=== PATIENT | female | born 1960 | race Caucasian/White ===

== ENCOUNTER 2017-12-29 11:00 | Outpatient (RCR) | payer MEDICAID, SELFPAY ==
[2017-12-13 10:40] VITALS: BP 135/50; PULSE 65; RESP 18; TEMP 35.7; BMI 55.2
--- NOTE | 2017-12-13 11:17 | PCM.WC.HP ---
(1) Ulcer of right lower extremity with fat layer exposed Status: Chronic Current Visit: Yes Code(s): L97.912 - Non-pressure chronic ulcer of unspecified part of right lower leg with fat layer exposed (2) Chronic ulcer of right thigh with fat layer exposed Status: Chronic Current Visit: Yes Code(s): L97.112 - Non-pressure chronic ulcer of right thigh with fat layer exposed (3) Morbid obesity Status: Chronic Current Visit: No Code(s): E66.01 - Morbid (severe) obesity due to excess calories (4) Venous insufficiency Status: Chronic Current Visit: Yes History of Present Illness Date of Service: 12/13/17 Chief Complaint: Right ervin and thigh ulcers History of Wound: Ms. Seth is 57 yo known to the wound center with PMH amongst other of chronic lymphedema / venous insufficiency who presents to the wound center with new right lower extremity wounds. Initial episode was about 6 weeks ago where she was managed at [facility] for left lower extremity celulitis. She was subsequently seen 3 weeks after for her right thigh ulcer and investigations done per patient were without any significant abnormality. She has just completed a 10 day course of antibiotics. She feels well otherwise and denies chill, fever, nausea, vomitting or any change in bowel habit. Past Medical History Past Medical History: Chronic Problems Chronic ulcer of right thigh with fat layer exposed (Chronic) Tinea unguium (Chronic) Venous insufficiency (Chronic) Morbid obesity (Chronic) Venous ulcer of leg (Chronic) right leg Ulcer of right lower extremity with fat layer exposed (Chronic) Lymphedema (Chronic) Right leg pain (Chronic) Malnutrition (Chronic) Surgical History: noncontributory, hysterectomy, - - D & C Allergies/Adverse Reactions: Allergies No Known Allergies Allergy (Verified 10/15/14 14:27) Home Medications: Ambulatory Orders Medication Instructions Recorded Carvedilol [Coreg] 25 mg PO BID 10/15/14 Levothyroxine [Synthroid] 350 mcg PO QODAY 10/15/14 Losartan Potassium [Cozaar] 50 mg PO DAILY 10/15/14 B Complex with Vitamin C 1 each PO DAILY 05/11/16 [B-Complex Plus Vitamin C] Desvenlafaxine Succinate [Pristiq] 200 mg PO DAILY 05/11/16 Levothyroxine [Synthroid] 175 mcg PO QODAY 05/11/16 Multivit-Min/Iron/Folic/Lutein 1 each PO DAILY 05/11/16 [Centrum Silver Women Tablet] Vit A Palm,D3 in Cod Liver Oil [Sv 1 each PO DAILY 05/11/16 Cod Liver Oil Softgel] - Family History Maternal - - family history includes cancer, hyperlipidemia, hypertension, polio Smoking Status: Never smoker Review of Systems Constitutional: Denies: Anorexia, Chills, Fever Eyes: Denies: Blurred vision, Redness HEENT: Denies: Difficulty Swallowing Cardiovascular: Denies: Chest Pain, Chest Tightness Respiratory: Denies: Cough, Shortness of Breath Gastrointestinal: Denies: Hematemesis, Vomiting Skin: Denies: Jaundice - Physical Exam Vital Signs Temp Pulse Resp BP 96.2 F L 65 18 135/50 H 12/13/17 10:40 12/13/17 10:40 12/13/17 10:40 12/13/17 10:40 General: Alert, Oriented x3, Cooperative, No apparent distress HEENT: Atraumatic, Normocephalic Oral: Moist Mucosa Neck: Supple Lungs: Normal air movement Cardiovascular: Regular rate, Regular Rhythm Abdomen: Soft, Obese Extremities: No cyanosis, Edema Skin: Ulcer/ Wound Wound Measurements and Assessment WC - Nurse 1 - General Ulcer Measurement Start: 12/13/17 10:40 Freq: Status: Active Protocol: Activity Type Activity Date Activity User E-Sign Co-Sign Detail Recorded Client Recorded Date Recorded By Document 12/13/17 10:40 [id number] 12/13/17 10:57 12/13/17 10:40 Wound Center Nurse 1 [Ulcer Assessment] #4 RIGHT MEDIAL UPPER THIGH -Combined with other wound No -Current Size (cm) - Length 2.2 -Current Size (cm) - Width 4.1 -Current Size (cm) - Depth 0.1 -Total Square Cm 9.02 -Date of Last Picture (Recall this 12/13/17 field) -Photo Taken Yes -Epithelialization None Present -Tunneling No -Undermining/Tunneling No -Circular Undermining No -Slough/Fibrin Yes -Necrosis Amt None Present (0 %) -Necrotic Tissue Type Eschar -Temperature (Irene-wound Skin No Abnormality Appearance) (Pt Warm) -Tenderness on Palpation (Irene-wound No Skin Appearance) -Ulcer Cleansing Wound Cleanser -Foul Odor after Cleansing No -Anesthetic Used 4% Lidocaine Solution #3 RIGHT LOWER ERVIN -Combined with other wound No -Current Size (cm) - Length 1.3 -Current Size (cm) - Width 1.3 -Current Size (cm) - Depth 0.1 -Total Square Cm 1.69 -Date of Last Picture (Recall this 12/13/17 field) -Photo Taken Yes -Epithelialization None Present -Tunneling No -Undermining/Tunneling No -Circular Undermining No -Slough/Fibrin Yes -Necrosis Amt None Present (0 %) -Necrotic Tissue Type Eschar -Temperature (Irene-wound Skin No Abnormality Appearance) (Pt Warm) -Tenderness on Palpation (Irene-wound No Skin Appearance) -Ulcer Cleansing Wound Cleanser -Foul Odor after Cleansing No -Anesthetic Used 4% Lidocaine Solution [Edema Assessment] -Lower Limb Edema Present Yes -Right Calf (cm) 81 -Right Ankle (cm) 33.5 -Left Calf (cm) 68 -Left Ankle (cm) 33 WC - Nurse 2 - General Ulcer CM Notes Start: 12/13/17 10:40 Freq: Status: Active Protocol: Activity Type Activity Date Activity User E-Sign Co-Sign Detail Recorded Client Recorded Date Recorded By Document 12/13/17 11:03 MW [id number] 12/13/17 11:14 MW 12/13/17 11:03 Wound Center Nurse 2 [Procedure/Treatment] #4 RIGHT MEDIAL UPPER THIGH -Time 11:05 -Correct Patient Yes -Correct Side, Site, Position Yes -Correct Procedure Yes -Procedure Performed Yes -Type of Procedure Debridement -Clinical Debridement Subcutaneous -Post Debridement Size (cm) - Length 4.6 -Post Debridement Size (cm) - Width 4.0 -Post Debridement Size (cm) - Depth 0.1 -Total Square Cm 18.40 -Wound/Ulcer Outcome Not Healed -Ulcer Cleansing Rinsed/ Irrigated with Saline -Foul Odor after Cleansing No -Bioengineered Tissue No -Bleeding Controlled with Pressure -Treatment Response Procedure Tolerated Well #3 RIGHT LOWER ERVIN -Time 11:04 -Correct Patient Yes -Correct Side, Site, Position Yes -Correct Procedure Yes -Procedure Performed Yes -Type of Procedure Debridement -Clinical Debridement Subcutaneous -Post Debridement Size (cm) - Length 1.6 -Post Debridement Size (cm) - Width 1.1 -Post Debridement Size (cm) - Depth 0.1 -Total Square Cm 1.76 -Wound/Ulcer Outcome Not Healed -Ulcer Cleansing Rinsed/ Irrigated with Saline -Foul Odor after Cleansing No -Bioengineered Tissue No -Bleeding Controlled with Pressure -Treatment Response Procedure Tolerated Well [See Physician Procedure note for Specifics] Pain Scale: 0-10 Numeric [Pain] -Is Patient Pain Free? Yes Musculoskeletal: No Muscle Wasting Neurological: Cranial nerves II-XII grossly intact Psych/Mental Status: Normal Affect Debridement Note Post-Debridement Measurements/Treatment WC - Nurse 2 - General Ulcer CM Notes Start: 12/13/17 10:40 Freq: Status: Active Protocol: Activity Type Activity Date Activity User E-Sign Co-Sign Detail Recorded Client Recorded Date Recorded By Document 12/13/17 11:03 MW [id number] 12/13/17 11:14 MW 12/13/17 11:03 Wound Center Nurse 2 #4 RIGHT MEDIAL UPPER THIGH -Time 11:05 -Correct Patient Yes -Correct Side, Site, Position Yes -Correct Procedure Yes -Procedure Performed Yes -Type of Procedure Debridement -Clinical Debridement Subcutaneous -Post Debridement Size (cm) - Length 4.6 -Post Debridement Size (cm) - Width 4.0 -Post Debridement Size (cm) - Depth 0.1 -Total Square Cm 18.40 -Wound/Ulcer Outcome Not Healed -Ulcer Cleansing Rinsed/ Irrigated with Saline -Foul Odor after Cleansing No -Bioengineered Tissue No -Bleeding Controlled with Pressure -Treatment Response Procedure Tolerated Well #3 RIGHT LOWER ERVIN -Time 11:04 -Correct Patient Yes -Correct Side, Site, Position Yes -Correct Procedure Yes -Procedure Performed Yes -Type of Procedure Debridement -Clinical Debridement Subcutaneous -Post Debridement Size (cm) - Length 1.6 -Post Debridement Size (cm) - Width 1.1 -Post Debridement Size (cm) - Depth 0.1 -Total Square Cm 1.76 -Wound/Ulcer Outcome Not Healed -Ulcer Cleansing Rinsed/ Irrigated with Saline -Foul Odor after Cleansing No -Bioengineered Tissue No -Bleeding Controlled with Pressure -Treatment Response Procedure Tolerated Well Pain Scale: 0-10 Numeric Is Patient Pain Free? Yes Wound debrided: Right Ervin Wound Grade/Stage: Stage II Type of Debridement: Excisional debridement Anesthesia Used: 4% Lidocaine Solution Depth: Down to and including healthy tissue, in the subcutaneous layer Percentage of wound debrided: 100 Instrument Used: 5mm curette Tissue Removed: Eschar, Slough and devitalized tissue Severity: Fat Layer Exposed Amount of bleeding with debridement: Mild Bleeding Controlled with: Pressure Patient tolerated procedure well - Additional Wound Wound debrided: Right Medial Thigh Wound Grade/Stage: Stage II Type of Debridement: Excisional debridement Anesthesia Used: 4% Lidocaine Solution Depth: Down to and including healthy tissue, in the subcutaneous layer Percentage of wound debrided: 100 Instrument Used: 5mm curette Tissue Removed: Eschar, slough and devitalized tissue Severity: Fat Layer Exposed Amount of bleeding with debridement: Mild Bleeding Controlled with: Pressure Patient tolerated procedure: Patient tolerated procedure well Assessment/Plan Active Problems Chronic ulcer of right thigh with fat layer exposed (Chronic) Venous insufficiency (Chronic) Ulcer of right lower extremity with fat layer exposed (Chronic) Assessment: Right Medial Thigh ulcer with fat layer exposed. Right ervin ulcer with fat layer exposed. Chronic lymphedema. Resolving Cellulitis. Plan: Lower extremity ulcers with significant eschar which were debrided today. No significant discharge on debriding. Debridement was well tolerated. She appears to have had significant work up at [facility], will request records. Apply Fibrochol with adpatic overtop. Change daily. Increased protein intake recommended. Surepress for edema management. Continue use of lymphedema pumps. Elevate lower extremity when sitted and in bed. Follow up in 1 week. She was advised to call with any question or concerns.
[2017-12-20 10:43] VITALS: BP 152/77; PULSE 73; RESP 18; TEMP 36.3; BMI 55.2
--- NOTE | 2017-12-20 12:14 | PCM.WC.PN ---
(1) Ulcer of right lower extremity with fat layer exposed Status: Chronic Current Visit: Yes Code(s): L97.912 - Non-pressure chronic ulcer of unspecified part of right lower leg with fat layer exposed (2) Chronic ulcer of right thigh with fat layer exposed Status: Chronic Current Visit: Yes Code(s): L97.112 - Non-pressure chronic ulcer of right thigh with fat layer exposed (3) Morbid obesity Status: Chronic Current Visit: No Code(s): E66.01 - Morbid (severe) obesity due to excess calories (4) Venous insufficiency Status: Chronic Current Visit: Yes Type of Wound Date of Service: 12/20/17 Chief Complaint: Right ervin and thigh ulcers History of Wound: Ms. Seth is 57 yo known to the wound center with PMH amongst other of chronic lymphedema / venous insufficiency who presents to the wound center with new right lower extremity wounds. Initial episode was about 6 weeks ago where she was managed at [facility] for left lower extremity celulitis. She was subsequently seen 3 weeks after for her right thigh ulcer and investigations done per patient were without any significant abnormality. She has just completed a 10 day course of antibiotics. She feels well otherwise and denies chill, fever, nausea, vomitting or any change in bowel habit. Progress of Wound: Right thigh is healed. Right lower extremity (leg) has significantly improved. No new complaints at this time. - Physical Exam Vital Signs Temp Pulse Resp BP 97.3 F L 73 18 152/77 H 12/20/17 10:43 12/20/17 10:43 12/20/17 10:43 12/20/17 10:43 General: Alert, Oriented x3, Cooperative, No apparent distress HEENT: Atraumatic Oral: Moist Mucosa Neck: Supple Lungs: Normal air movement Cardiovascular: Regular rate Abdomen: Non Tender, Obese Extremities: No cyanosis, Edema Skin: Ulcer/ Wound Wound Measurements and Assessment WC - Nurse 1 - General Ulcer Measurement Start: 12/13/17 10:40 Freq: Status: Active Protocol: Activity Type Activity Date Activity User E-Sign Co-Sign Detail Recorded Client Recorded Date Recorded By Document 12/20/17 10:43 [id number] 12/20/17 10:47 12/20/17 10:43 Wound Center Nurse 1 [Ulcer Assessment] #4 RIGHT MEDIAL UPPER THIGH -Combined with other wound No -Current Size (cm) - Length 0.1 -Current Size (cm) - Width 0.1 -Current Size (cm) - Depth 0.1 -Total Square Cm 0.01 -Date of Last Picture (Recall this 12/20/17 field) -Photo Taken Yes -Epithelialization Large 67-100% #3 RIGHT LOWER ERVIN -Combined with other wound No -Current Size (cm) - Length 0.3 -Current Size (cm) - Width 0.3 -Current Size (cm) - Depth 0.1 -Total Square Cm 0.09 -Photo Taken No -Epithelialization Small 1-33% -Tunneling No -Undermining/Tunneling No -Circular Undermining No -Exudate Amt Small (1-33%) -Exudate Type Serosanguineous -Wound Margin Distinct, Outline Attached -Granulation Amt Small (1-33%) -Granulation Quality [place] Red -Slough/Fibrin Yes -Necrosis Amt None Present (0 %) -Necrotic Tissue Type Adherent Slough -Structure Exposed None/Limited to Skin Breakdown -Texture (Irene-wound Skin Appearance) No Abnormality Assessed -Moisture (Irene-wound Skin Appearance Assessed ) Dry/Scaly -Color (Irene-wound Skin Appearance) No Abnormality Assessed -Temperature (Irene-wound Skin No Abnormality Appearance) (Pt Warm) -Tenderness on Palpation (Irene-wound No Skin Appearance) -Ulcer Cleansing Rinsed/ Irrigated with Saline -Foul Odor after Cleansing No -Anesthetic Used 4% Lidocaine Solution [Edema Assessment] -Lower Limb Edema Present NA WC - Nurse 2 - General Ulcer CM Notes Start: 12/13/17 10:40 Freq: Status: Active Protocol: Activity Type Activity Date Activity User E-Sign Co-Sign Detail Recorded Client Recorded Date Recorded By Document 12/20/17 11:42 MW [id number] 12/20/17 11:45 MW 12/20/17 11:42 Wound Center Nurse 2 [Procedure/Treatment] #4 RIGHT MEDIAL UPPER THIGH -Time 11:42 -Correct Patient Yes -Correct Side, Site, Position Yes -Correct Procedure No -Procedure Performed No -Post Debridement Size (cm) - Length 0 -Post Debridement Size (cm) - Width 0 -Post Debridement Size (cm) - Depth 0 -Total Square Cm 0 -Wound/Ulcer Outcome Healed- Epithelialized -Ulcer Cleansing Not Cleansed -Foul Odor after Cleansing No -Bioengineered Tissue No -Bleeding Controlled with NA -Treatment Response Procedure Tolerated Well #3 RIGHT LOWER ERVIN -Time 11:43 -Correct Patient Yes -Correct Side, Site, Position Yes -Correct Procedure Yes -Procedure Performed Yes -Type of Procedure Debridement -Clinical Debridement Subcutaneous -Post Debridement Size (cm) - Length 0.9 -Post Debridement Size (cm) - Width 0.5 -Post Debridement Size (cm) - Depth 0.1 -Total Square Cm 0.45 -Wound/Ulcer Outcome Not Healed -Ulcer Cleansing Rinsed/ Irrigated with Saline -Foul Odor after Cleansing No -Bioengineered Tissue No -Bleeding Controlled with Pressure -Treatment Response Procedure Tolerated Well [See Physician Procedure note for Specifics] Pain Scale: 0-10 Numeric [Pain] -Is Patient Pain Free? Yes Musculoskeletal: No Muscle Wasting Neurological: Cranial nerves II-XII grossly intact Psych/Mental Status: Normal Affect Debridement Note Post-Debridement Measurements/Treatment WC - Nurse 2 - General Ulcer CM Notes Start: 12/13/17 10:40 Freq: Status: Active Protocol: Activity Type Activity Date Activity User E-Sign Co-Sign Detail Recorded Client Recorded Date Recorded By Document 12/13/17 11:03 MW [id number] 12/13/17 11:14 MW Document 12/20/17 11:42 MW [id number] 12/20/17 11:45 MW 12/13/17 12/20/17 11:03 11:42 Wound Center Nurse 2 #4 RIGHT MEDIAL UPPER THIGH -Time 11:05 11:42 -Correct Patient Yes Yes -Correct Side, Site, Position Yes Yes -Correct Procedure Yes No -Procedure Performed Yes No -Type of Procedure Debridement -Clinical Debridement Subcutaneous -Post Debridement Size (cm) - Length 4.6 0 -Post Debridement Size (cm) - Width 4.0 0 -Post Debridement Size (cm) - Depth 0.1 0 -Total Square Cm 18.40 0 -Wound/Ulcer Outcome Not Healed Healed- Epithelialized -Ulcer Cleansing Rinsed/ Not Cleansed Irrigated with Saline -Foul Odor after Cleansing No No -Bioengineered Tissue No No -Bleeding Controlled with Pressure NA -Treatment Response Procedure Procedure Tolerated Well Tolerated Well #3 RIGHT LOWER ERVIN -Time 11:04 11:43 -Correct Patient Yes Yes -Correct Side, Site, Position Yes Yes -Correct Procedure Yes Yes -Procedure Performed Yes Yes -Type of Procedure Debridement Debridement -Clinical Debridement Subcutaneous Subcutaneous -Post Debridement Size (cm) - Length 1.6 0.9 -Post Debridement Size (cm) - Width 1.1 0.5 -Post Debridement Size (cm) - Depth 0.1 0.1 -Total Square Cm 1.76 0.45 -Wound/Ulcer Outcome Not Healed Not Healed -Ulcer Cleansing Rinsed/ Rinsed/ Irrigated with Irrigated with Saline Saline -Foul Odor after Cleansing No No -Bioengineered Tissue No No -Bleeding Controlled with Pressure Pressure -Treatment Response Procedure Procedure Tolerated Well Tolerated Well Pain Scale: 0-10 Numeric Is Patient Pain Free? Yes Yes Wound debrided: Right leg Wound Grade/Stage: Stage II Type of Debridement: Excisional debridement Anesthesia Used: 4% Lidocaine Solution Depth: Down to and including healthy tissue, in the subcutaneous layer Percentage of wound debrided: 100 Instrument Used: 3mm curette Tissue Removed: Slough and devitalized tissue Severity: Fat Layer Exposed Amount of bleeding with debridement: Mild Bleeding Controlled with: Pressure Patient tolerated procedure well Assessment/Plan Active Problems Chronic ulcer of right thigh with fat layer exposed (Chronic) Venous insufficiency (Chronic) Ulcer of right lower extremity with fat layer exposed (Chronic) Assessment: Right Medial Thigh ulcer with fat layer exposed. Right ervin ulcer with fat layer exposed. Chronic lymphedema. Resolving Cellulitis. Plan: Significant improvement noted today. No complaints at this time. Debridement done as documented above. Procedure was well-tolerated. Continue Fibrochol with adpatic overtop. Change daily. Increased protein intake recommend. Not very tolerant of sure press. Light 3M wraps bilaterally and continue use of lymphedema pumps. Follow-up in Monday for nurse visit. Elevate lower extremity when sitted and in bed. Follow up in 1 week. She was advised to call with any question or concerns. This note was generated with [employer] dictation software. It may contain incorrect words, spelling, and punctuation that were not noted in checking the note before signing.
--- NOTE | 2017-12-20 12:17 | PN.PCM_ITS ---
(1) Ulcer of right lower extremity with fat layer exposed Status: Chronic Current Visit: Yes Code(s): L97.912 - Non-pressure chronic ulcer of unspecified part of right lower leg with fat layer exposed (2) Chronic ulcer of right thigh with fat layer exposed Status: Chronic Current Visit: Yes Code(s): L97.112 - Non-pressure chronic ulcer of right thigh with fat layer exposed (3) Morbid obesity Status: Chronic Current Visit: No Code(s): E66.01 - Morbid (severe) obesity due to excess calories (4) Venous insufficiency Status: Chronic Current Visit: Yes Type of Wound Date of Service: 12/20/17 Chief Complaint: Right ervin and thigh ulcers History of Wound: Ms. Seth is 57 yo known to the wound center with PMH amongst other of chronic lymphedema / venous insufficiency who presents to the wound center with new right lower extremity wounds. Initial episode was about 6 weeks ago where she was managed at [facility] for left lower extremity celulitis. She was subsequently seen 3 weeks after for her right thigh ulcer and investigations done per patient were without any significant abnormality. She has just completed a 10 day course of antibiotics. She feels well otherwise and denies chill, fever, nausea, vomitting or any change in bowel habit. Progress of Wound: Right thigh is healed. Right lower extremity (leg) has significantly improved. No new complaints at this time. - Physical Exam Vital Signs Temp Pulse Resp BP 97.3 F L 73 18 152/77 H 12/20/17 10:43 12/20/17 10:43 12/20/17 10:43 12/20/17 10:43 General: Alert, Oriented x3, Cooperative, No apparent distress HEENT: Atraumatic Oral: Moist Mucosa Neck: Supple Lungs: Normal air movement Cardiovascular: Regular rate Abdomen: Non Tender, Obese Extremities: No cyanosis, Edema Skin: Ulcer/ Wound Wound Measurements and Assessment WC - Nurse 1 - General Ulcer Measurement Start: 12/13/17 10:40 Freq: Status: Active Protocol: Activity Type Activity Date Activity User E-Sign Co-Sign Detail Recorded Client Recorded Date Recorded By Document 12/20/17 10:43 [id number] 12/20/17 10:47 12/20/17 10:43 Wound Center Nurse 1 [Ulcer Assessment] #4 RIGHT MEDIAL UPPER THIGH -Combined with other wound No -Current Size (cm) - Length 0.1 -Current Size (cm) - Width 0.1 -Current Size (cm) - Depth 0.1 -Total Square Cm 0.01 -Date of Last Picture (Recall this 12/20/17 field) -Photo Taken Yes -Epithelialization Large 67-100% #3 RIGHT LOWER ERVIN -Combined with other wound No -Current Size (cm) - Length 0.3 -Current Size (cm) - Width 0.3 -Current Size (cm) - Depth 0.1 -Total Square Cm 0.09 -Photo Taken No -Epithelialization Small 1-33% -Tunneling No -Undermining/Tunneling No -Circular Undermining No -Exudate Amt Small (1-33%) -Exudate Type Serosanguineous -Wound Margin Distinct, Outline Attached -Granulation Amt Small (1-33%) -Granulation Quality [place] -Slough/Fibrin Yes -Necrosis Amt None Present (0 %) -Necrotic Tissue Type Adherent Slough -Structure Exposed None/Limited to Skin Breakdown -Texture (Irene-wound Skin Appearance) No Abnormality Assessed -Moisture (Irene-wound Skin Appearance Assessed ) Dry/Scaly -Color (Irene-wound Skin Appearance) No Abnormality Assessed -Temperature (Irene-wound Skin No Abnormality Appearance) (Pt Warm) -Tenderness on Palpation (Irene-wound No Skin Appearance) -Ulcer Cleansing Rinsed/ Irrigated with Saline -Foul Odor after Cleansing No -Anesthetic Used 4% Lidocaine Solution [Edema Assessment] -Lower Limb Edema Present NA WC - Nurse 2 - General Ulcer CM Notes Start: 12/13/17 10:40 Freq: Status: Active Protocol: Activity Type Activity Date Activity User E-Sign Co-Sign Detail Recorded Client Recorded Date Recorded By Document 12/20/17 11:42 MW [id number] 12/20/17 11:45 MW 12/20/17 11:42 Wound Center Nurse 2 [Procedure/Treatment] #4 RIGHT MEDIAL UPPER THIGH -Time 11:42 -Correct Patient Yes -Correct Side, Site, Position Yes -Correct Procedure No -Procedure Performed No -Post Debridement Size (cm) - Length 0 -Post Debridement Size (cm) - Width 0 -Post Debridement Size (cm) - Depth 0 -Total Square Cm 0 -Wound/Ulcer Outcome Healed- Epithelialized -Ulcer Cleansing Not Cleansed -Foul Odor after Cleansing No -Bioengineered Tissue No -Bleeding Controlled with NA -Treatment Response Procedure Tolerated Well #3 RIGHT LOWER ERVIN -Time 11:43 -Correct Patient Yes -Correct Side, Site, Position Yes -Correct Procedure Yes -Procedure Performed Yes -Type of Procedure Debridement -Clinical Debridement Subcutaneous -Post Debridement Size (cm) - Length 0.9 -Post Debridement Size (cm) - Width 0.5 -Post Debridement Size (cm) - Depth 0.1 -Total Square Cm 0.45 -Wound/Ulcer Outcome Not Healed -Ulcer Cleansing Rinsed/ Irrigated with Saline -Foul Odor after Cleansing No -Bioengineered Tissue No -Bleeding Controlled with Pressure -Treatment Response Procedure Tolerated Well [See Physician Procedure note for Specifics] Pain Scale: 0-10 Numeric [Pain] -Is Patient Pain Free? Yes Musculoskeletal: No Muscle Wasting Neurological: Cranial nerves II-XII grossly intact Psych/Mental Status: Normal Affect Debridement Note Post-Debridement Measurements/Treatment WC - Nurse 2 - General Ulcer CM Notes Start: 12/13/17 10:40 Freq: Status: Active Protocol: Activity Type Activity Date Activity User E-Sign Co-Sign Detail Recorded Client Recorded Date Recorded By Document 12/13/17 11:03 MW [id number] 12/13/17 11:14 MW Document 12/20/17 11:42 MW [id number] 12/20/17 11:45 MW 12/13/17 12/20/17 11:03 11:42 Wound Center Nurse 2 #4 RIGHT MEDIAL UPPER THIGH -Time 11:05 11:42 -Correct Patient Yes Yes -Correct Side, Site, Position Yes Yes -Correct Procedure Yes No -Procedure Performed Yes No -Type of Procedure Debridement -Clinical Debridement Subcutaneous -Post Debridement Size (cm) - Length 4.6 0 -Post Debridement Size (cm) - Width 4.0 0 -Post Debridement Size (cm) - Depth 0.1 0 -Total Square Cm 18.40 0 -Wound/Ulcer Outcome Not Healed Healed- Epithelialized -Ulcer Cleansing Rinsed/ Not Cleansed Irrigated with Saline -Foul Odor after Cleansing No No -Bioengineered Tissue No No -Bleeding Controlled with Pressure NA -Treatment Response Procedure Procedure Tolerated Well Tolerated Well #3 RIGHT LOWER ERVIN -Time 11:04 11:43 -Correct Patient Yes Yes -Correct Side, Site, Position Yes Yes -Correct Procedure Yes Yes -Procedure Performed Yes Yes -Type of Procedure Debridement Debridement -Clinical Debridement Subcutaneous Subcutaneous -Post Debridement Size (cm) - Length 1.6 0.9 -Post Debridement Size (cm) - Width 1.1 0.5 -Post Debridement Size (cm) - Depth 0.1 0.1 -Total Square Cm 1.76 0.45 -Wound/Ulcer Outcome Not Healed Not Healed -Ulcer Cleansing Rinsed/ Rinsed/ Irrigated with Irrigated with Saline Saline -Foul Odor after Cleansing No No -Bioengineered Tissue No No -Bleeding Controlled with Pressure Pressure -Treatment Response Procedure Procedure Tolerated Well Tolerated Well Pain Scale: 0-10 Numeric Is Patient Pain Free? Yes Yes Wound debrided: Right leg Wound Grade/Stage: Stage II Type of Debridement: Excisional debridement Anesthesia Used: 4% Lidocaine Solution Depth: Down to and including healthy tissue, in the subcutaneous layer Percentage of wound debrided: 100 Instrument Used: 3mm curette Tissue Removed: Slough and devitalized tissue Severity: Fat Layer Exposed Amount of bleeding with debridement: Mild Bleeding Controlled with: Pressure Patient tolerated procedure well Assessment/Plan Active Problems Chronic ulcer of right thigh with fat layer exposed (Chronic) Venous insufficiency (Chronic) Ulcer of right lower extremity with fat layer exposed (Chronic) Assessment: Right Medial Thigh ulcer with fat layer exposed. Right ervin ulcer with fat layer exposed. Chronic lymphedema. Resolving Cellulitis. Plan: Significant improvement noted today. No complaints at this time. Debridement done as documented above. Procedure was well-tolerated. Continue Fibrochol with adpatic overtop. Change daily. Increased protein intake recommend. Not very tolerant of sure press. Light 3M wraps bilaterally and continue use of lymphedema pumps. Follow-up in Monday for nurse visit. Elevate lower extremity when sitted and in bed. Follow up in 1 week. She was advised to call with any question or concerns. This note was generated with [employer] dictation software. It may contain incorrect words, spelling, and punctuation that were not noted in checking the note before signing.
[2017-12-22 11:17] VITALS: BP 139/79; PULSE 78; RESP 18; TEMP 36; BMI 55.2
[2017-12-27 08:11] VITALS: BP 157/71; PULSE 63; RESP 22; TEMP 35.8; BMI 55.2
--- NOTE | 2017-12-27 08:33 | PCM.WC.PN ---
(1) Ulcer of right lower extremity with fat layer exposed Status: Chronic Current Visit: Yes Code(s): L97.912 - Non-pressure chronic ulcer of unspecified part of right lower leg with fat layer exposed (2) Chronic ulcer of right thigh with fat layer exposed Status: Chronic Current Visit: Yes Code(s): L97.112 - Non-pressure chronic ulcer of right thigh with fat layer exposed (3) Morbid obesity Status: Chronic Current Visit: No Code(s): E66.01 - Morbid (severe) obesity due to excess calories (4) Venous insufficiency Status: Chronic Current Visit: Yes Type of Wound Chief Complaint: Right ervin and thigh ulcers History of Wound: Ms. Seth is 57 yo known to the wound center with PMH amongst other of chronic lymphedema / venous insufficiency who presents to the wound center with new right lower extremity wounds. Initial episode was about 6 weeks ago where she was managed at [facility] for left lower extremity celulitis. She was subsequently seen 3 weeks after for her right thigh ulcer and investigations done per patient were without any significant abnormality. She has just completed a 10 day course of antibiotics. She feels well otherwise and denies chill, fever, nausea, vomitting or any change in bowel habit. Progress of Wound: Improving. no new compliants at this time. - Physical Exam Vital Signs Temp Pulse Resp BP 96.4 F L 63 22 H 157/71 H 12/27/17 08:11 12/27/17 08:11 12/27/17 08:11 12/27/17 08:11 General: Alert, Oriented x3, Cooperative, No apparent distress HEENT: Atraumatic Oral: Moist Mucosa Neck: Supple Lungs: Normal air movement Abdomen: Non Tender, Obese Extremities: No cyanosis, Edema Skin: Ulcer/ Wound Wound Measurements and Assessment WC - Nurse 1 - General Ulcer Measurement Start: 12/13/17 10:40 Freq: Status: Active Protocol: Activity Type Activity Date Activity User E-Sign Co-Sign Detail Recorded Client Recorded Date Recorded By Document 12/27/17 08:11 JORGE [id number] 12/27/17 08:20 DL 12/27/17 08:11 Wound Center Nurse 1 [Ulcer Assessment] #3 RIGHT LOWER ERVIN -Current Size (cm) - Length 0.4 -Current Size (cm) - Width 0.2 -Current Size (cm) - Depth 0.1 -Total Square Cm 0.08 -Photo Taken No -Exudate Amt None Present (0 %) -Wound Margin Flat & Intact -Granulation Amt Large (67-100%) -Granulation Quality [place] -Necrosis Amt Small (1-33%) -Necrotic Tissue Type Adherent Slough -Structure Exposed N/A -Texture (Irene-wound Skin Appearance) Excoriation Scarring -Moisture (Irene-wound Skin Appearance Dry/Scaly ) -Color (Irene-wound Skin Appearance) Erythema Hemosiderin Staining -Temperature (Irene-wound Skin No Abnormality Appearance) (Pt Warm) -Ulcer Cleansing Wound Cleanser -Foul Odor after Cleansing No -Anesthetic Used 4% Lidocaine Solution [Edema Assessment] -Right Calf (cm) 65 -Right Ankle (cm) 30.5 WC - Nurse 2 - General Ulcer CM Notes Start: 12/13/17 10:40 Freq: Status: Active Protocol: Activity Type Activity Date Activity User E-Sign Co-Sign Detail Recorded Client Recorded Date Recorded By Document 12/27/17 08:28 MW [id number] 12/27/17 08:29 MW 12/27/17 08:28 Wound Center Nurse 2 [Procedure/Treatment] #3 RIGHT LOWER ERVIN -Time 08:28 -Correct Patient Yes -Correct Side, Site, Position Yes -Correct Procedure Yes -Procedure Performed Yes -Type of Procedure Debridement -Clinical Debridement Subcutaneous -Post Debridement Size (cm) - Length 0.5 -Post Debridement Size (cm) - Width 0.2 -Post Debridement Size (cm) - Depth 0.1 -Total Square Cm 0.10 -Wound/Ulcer Outcome Not Healed -Ulcer Cleansing Rinsed/ Irrigated with Saline -Foul Odor after Cleansing No -Bioengineered Tissue No -Bleeding Controlled with Pressure -Treatment Response Procedure Tolerated Well [See Physician Procedure note for Specifics] Pain Scale: 0-10 Numeric [Pain] -Is Patient Pain Free? Yes Musculoskeletal: No Muscle Wasting Neurological: Cranial nerves II-XII grossly intact Psych/Mental Status: Normal Affect Debridement Note Post-Debridement Measurements/Treatment WC - Nurse 2 - General Ulcer CM Notes Start: 12/13/17 10:40 Freq: Status: Active Protocol: Activity Type Activity Date Activity User E-Sign Co-Sign Detail Recorded Client Recorded Date Recorded By Document 12/13/17 11:03 MW [id number] 12/13/17 11:14 MW Document 12/20/17 11:42 MW [id number] 12/20/17 11:45 MW Document 12/27/17 08:28 MW [id number] 12/27/17 08:29 MW 12/13/17 12/20/17 12/27/17 11:03 11:42 08:28 Wound Center Nurse 2 #4 RIGHT MEDIAL UPPER THIGH -Time 11:05 11:42 -Correct Patient Yes Yes -Correct Side, Site, Position Yes Yes -Correct Procedure Yes No -Procedure Performed Yes No -Type of Procedure Debridement -Clinical Debridement Subcutaneous -Post Debridement Size (cm) - Length 4.6 0 -Post Debridement Size (cm) - Width 4.0 0 -Post Debridement Size (cm) - Depth 0.1 0 -Total Square Cm 18.40 0 -Wound/Ulcer Outcome Not Healed Healed- Epithelialized -Ulcer Cleansing Rinsed/ Not Cleansed Irrigated with Saline -Foul Odor after Cleansing No No -Bioengineered Tissue No No -Bleeding Controlled with Pressure NA -Treatment Response Procedure Procedure Tolerated Well Tolerated Well #3 RIGHT LOWER ERVIN -Time 11:04 11:43 08:28 -Correct Patient Yes Yes Yes -Correct Side, Site, Position Yes Yes Yes -Correct Procedure Yes Yes Yes -Procedure Performed Yes Yes Yes -Type of Procedure Debridement Debridement Debridement -Clinical Debridement Subcutaneous Subcutaneous Subcutaneous -Post Debridement Size (cm) - Length 1.6 0.9 0.5 -Post Debridement Size (cm) - Width 1.1 0.5 0.2 -Post Debridement Size (cm) - Depth 0.1 0.1 0.1 -Total Square Cm 1.76 0.45 0.10 -Wound/Ulcer Outcome Not Healed Not Healed Not Healed -Ulcer Cleansing Rinsed/ Rinsed/ Rinsed/ Irrigated with Irrigated with Irrigated with Saline Saline Saline -Foul Odor after Cleansing No No No -Bioengineered Tissue No No No -Bleeding Controlled with Pressure Pressure Pressure -Treatment Response Procedure Procedure Procedure Tolerated Well Tolerated Well Tolerated Well Pain Scale: 0-10 Numeric Is Patient Pain Free? Yes Yes Yes Wound debrided: Right lower extremity Wound Grade/Stage: Stage II Type of Debridement: Excisional debridement Anesthesia Used: 4% Lidocaine Solution Depth: Down to and including healthy tissue, in the subcutaneous layer Percentage of wound debrided: 100 Instrument Used: 3mm curette Tissue Removed: Slough and devitalized tissue Severity: Fat Layer Exposed Amount of bleeding with debridement: Mild Bleeding Controlled with: Pressure Patient tolerated procedure well Assessment/Plan Active Problems Chronic ulcer of right thigh with fat layer exposed (Chronic) Venous insufficiency (Chronic) Ulcer of right lower extremity with fat layer exposed (Chronic) Assessment: Right Medial Thigh ulcer with fat layer exposed. Right ervin ulcer with fat layer exposed. Chronic lymphedema. Resolving Cellulitis. Plan: Continues to show good improvement. No complaints at this time. Debridement done as documented above. Procedure was well-tolerated. Switch to promogran and leave in place for 1 week. Continue Light 3M wraps bilaterally and continue use of lymphedema pumps. Follow-up in Monday for nurse visit. Elevate lower extremity when sitted and in bed. Follow up in 1 week. She was advised to call with any question or concerns. This note was generated with [employer] dictation software. It may contain incorrect words, spelling, and punctuation that were not noted in checking the note before signing.
--- NOTE | 2017-12-27 08:37 | PN.PCM_ITS ---
(1) Ulcer of right lower extremity with fat layer exposed Status: Chronic Current Visit: Yes Code(s): L97.912 - Non-pressure chronic ulcer of unspecified part of right lower leg with fat layer exposed (2) Chronic ulcer of right thigh with fat layer exposed Status: Chronic Current Visit: Yes Code(s): L97.112 - Non-pressure chronic ulcer of right thigh with fat layer exposed (3) Morbid obesity Status: Chronic Current Visit: No Code(s): E66.01 - Morbid (severe) obesity due to excess calories (4) Venous insufficiency Status: Chronic Current Visit: Yes Type of Wound Chief Complaint: Right ervin and thigh ulcers History of Wound: Ms. Seth is 57 yo known to the wound center with PMH amongst other of chronic lymphedema / venous insufficiency who presents to the wound center with new right lower extremity wounds. Initial episode was about 6 weeks ago where she was managed at [facility] for left lower extremity celulitis. She was subsequently seen 3 weeks after for her right thigh ulcer and investigations done per patient were without any significant abnormality. She has just completed a 10 day course of antibiotics. She feels well otherwise and denies chill, fever, nausea, vomitting or any change in bowel habit. Progress of Wound: Improving. no new compliants at this time. - Physical Exam Vital Signs Temp Pulse Resp BP 96.4 F L 63 22 H 157/71 H 12/27/17 08:11 12/27/17 08:11 12/27/17 08:11 12/27/17 08:11 General: Alert, Oriented x3, Cooperative, No apparent distress HEENT: Atraumatic Oral: Moist Mucosa Neck: Supple Lungs: Normal air movement Abdomen: Non Tender, Obese Extremities: No cyanosis, Edema Skin: Ulcer/ Wound Wound Measurements and Assessment WC - Nurse 1 - General Ulcer Measurement Start: 12/13/17 10:40 Freq: Status: Active Protocol: Activity Type Activity Date Activity User E-Sign Co-Sign Detail Recorded Client Recorded Date Recorded By Document 12/27/17 08:11 JORGE [id number] 12/27/17 08:20 DL 12/27/17 08:11 Wound Center Nurse 1 [Ulcer Assessment] #3 RIGHT LOWER ERVIN -Current Size (cm) - Length 0.4 -Current Size (cm) - Width 0.2 -Current Size (cm) - Depth 0.1 -Total Square Cm 0.08 -Photo Taken No -Exudate Amt None Present (0 %) -Wound Margin Flat & Intact -Granulation Amt Large (67-100%) -Granulation Quality [place] -Necrosis Amt Small (1-33%) -Necrotic Tissue Type Adherent Slough -Structure Exposed N/A -Texture (Irene-wound Skin Appearance) Excoriation Scarring -Moisture (Irene-wound Skin Appearance Dry/Scaly ) -Color (Irene-wound Skin Appearance) Erythema Hemosiderin Staining -Temperature (Irene-wound Skin No Abnormality Appearance) (Pt Warm) -Ulcer Cleansing Wound Cleanser -Foul Odor after Cleansing No -Anesthetic Used 4% Lidocaine Solution [Edema Assessment] -Right Calf (cm) 65 -Right Ankle (cm) 30.5 WC - Nurse 2 - General Ulcer CM Notes Start: 12/13/17 10:40 Freq: Status: Active Protocol: Activity Type Activity Date Activity User E-Sign Co-Sign Detail Recorded Client Recorded Date Recorded By Document 12/27/17 08:28 MW [id number] 12/27/17 08:29 MW 12/27/17 08:28 Wound Center Nurse 2 [Procedure/Treatment] #3 RIGHT LOWER ERVIN -Time 08:28 -Correct Patient Yes -Correct Side, Site, Position Yes -Correct Procedure Yes -Procedure Performed Yes -Type of Procedure Debridement -Clinical Debridement Subcutaneous -Post Debridement Size (cm) - Length 0.5 -Post Debridement Size (cm) - Width 0.2 -Post Debridement Size (cm) - Depth 0.1 -Total Square Cm 0.10 -Wound/Ulcer Outcome Not Healed -Ulcer Cleansing Rinsed/ Irrigated with Saline -Foul Odor after Cleansing No -Bioengineered Tissue No -Bleeding Controlled with Pressure -Treatment Response Procedure Tolerated Well [See Physician Procedure note for Specifics] Pain Scale: 0-10 Numeric [Pain] -Is Patient Pain Free? Yes Musculoskeletal: No Muscle Wasting Neurological: Cranial nerves II-XII grossly intact Psych/Mental Status: Normal Affect Debridement Note Post-Debridement Measurements/Treatment WC - Nurse 2 - General Ulcer CM Notes Start: 12/13/17 10:40 Freq: Status: Active Protocol: Activity Type Activity Date Activity User E-Sign Co-Sign Detail Recorded Client Recorded Date Recorded By Document 12/13/17 11:03 MW [id number] 12/13/17 11:14 MW Document 12/20/17 11:42 MW [id number] 12/20/17 11:45 MW Document 12/27/17 08:28 MW [id number] 12/27/17 08:29 MW 12/13/17 12/20/17 12/27/17 11:03 11:42 08:28 Wound Center Nurse 2 #4 RIGHT MEDIAL UPPER THIGH -Time 11:05 11:42 -Correct Patient Yes Yes -Correct Side, Site, Position Yes Yes -Correct Procedure Yes No -Procedure Performed Yes No -Type of Procedure Debridement -Clinical Debridement Subcutaneous -Post Debridement Size (cm) - Length 4.6 0 -Post Debridement Size (cm) - Width 4.0 0 -Post Debridement Size (cm) - Depth 0.1 0 -Total Square Cm 18.40 0 -Wound/Ulcer Outcome Not Healed Healed- Epithelialized -Ulcer Cleansing Rinsed/ Not Cleansed Irrigated with Saline -Foul Odor after Cleansing No No -Bioengineered Tissue No No -Bleeding Controlled with Pressure NA -Treatment Response Procedure Procedure Tolerated Well Tolerated Well #3 RIGHT LOWER ERVIN -Time 11:04 11:43 08:28 -Correct Patient Yes Yes Yes -Correct Side, Site, Position Yes Yes Yes -Correct Procedure Yes Yes Yes -Procedure Performed Yes Yes Yes -Type of Procedure Debridement Debridement Debridement -Clinical Debridement Subcutaneous Subcutaneous Subcutaneous -Post Debridement Size (cm) - Length 1.6 0.9 0.5 -Post Debridement Size (cm) - Width 1.1 0.5 0.2 -Post Debridement Size (cm) - Depth 0.1 0.1 0.1 -Total Square Cm 1.76 0.45 0.10 -Wound/Ulcer Outcome Not Healed Not Healed Not Healed -Ulcer Cleansing Rinsed/ Rinsed/ Rinsed/ Irrigated with Irrigated with Irrigated with Saline Saline Saline -Foul Odor after Cleansing No No No -Bioengineered Tissue No No No -Bleeding Controlled with Pressure Pressure Pressure -Treatment Response Procedure Procedure Procedure Tolerated Well Tolerated Well Tolerated Well Pain Scale: 0-10 Numeric Is Patient Pain Free? Yes Yes Yes Wound debrided: Right lower extremity Wound Grade/Stage: Stage II Type of Debridement: Excisional debridement Anesthesia Used: 4% Lidocaine Solution Depth: Down to and including healthy tissue, in the subcutaneous layer Percentage of wound debrided: 100 Instrument Used: 3mm curette Tissue Removed: Slough and devitalized tissue Severity: Fat Layer Exposed Amount of bleeding with debridement: Mild Bleeding Controlled with: Pressure Patient tolerated procedure well Assessment/Plan Active Problems Chronic ulcer of right thigh with fat layer exposed (Chronic) Venous insufficiency (Chronic) Ulcer of right lower extremity with fat layer exposed (Chronic) Assessment: Right Medial Thigh ulcer with fat layer exposed. Right ervin ulcer with fat layer exposed. Chronic lymphedema. Resolving Cellulitis. Plan: Continues to show good improvement. No complaints at this time. Debridement done as documented above. Procedure was well-tolerated. Switch to promogran and leave in place for 1 week. Continue Light 3M wraps bilaterally and continue use of lymphedema pumps. Follow-up in Monday for nurse visit. Elevate lower extremity when sitted and in bed. Follow up in 1 week. She was advised to call with any question or concerns. This note was generated with [employer] dictation software. It may contain incorrect words, spelling, and punctuation that were not noted in checking the note before signing.
[2017-12-29 12:06] VITALS: BP 134/80; PULSE 69; RESP 18; TEMP 35.9; BMI 55.2
== END 2017-12-31 23:59 ==
LOC: WC 11:00
PROVIDERS: Family Provider Family Medicine; PCP Family Medicine; Visit Provider Internal Medicine
DX: I87.2 Venous insufficiency (chronic) (peripheral) (principal); E66.01 Morbid (severe) obesity due to excess calories; Z68.43 Body mass index [BMI] 50.0-59.9, adult; Z71.3 Dietary counseling and surveillance; L97.112 Non-pressure chronic ulcer of right thigh with fat layer exposed; L97.812 Non-pressure chronic ulcer of other part of right lower leg with fat layer exposed; I89.0 Lymphedema, not elsewhere classified
CPT/HCPCS: 11042; 11045; 29581; 99212; 99213; G0463

== ENCOUNTER → 2018-01-11 09:32 | Outpatient (CLI) | payer MEDICAID, SELFPAY ==
[2018-01-11 10:49] LABS: Free T3 2.5 pg/mL (2.18-3.98); T4 Free Direct 1.62 ng/dL (0.76-1.46); Thyroid Stim Hormone (TSH) 0.97 uIU/mL (0.358-3.74)
== END ==
PROVIDERS: Family Provider Family Medicine; PCP Family Medicine; Referring Provider Nurse Practitioner; Visit Provider Nurse Practitioner
DX: E03.9 Hypothyroidism, unspecified (principal)
CPT/HCPCS: 36415; 84439; 84443; 84481

== ENCOUNTER 2018-01-31 09:15 | Outpatient (RCR) | payer MEDICAID, SELFPAY ==
[2018-01-01 01:32] VITALS: BP 134/80; PULSE 69; RESP 18; TEMP 35.9
[2018-01-03 09:26] VITALS: BP 141/70; PULSE 66; RESP 18; TEMP 35.7
--- NOTE | 2018-01-03 10:11 | PCM.WC.PN ---
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 Seth is 57 yo known to the wound center with PMH amongst other of chronic lymphedema / venous insufficiency who presents to the wound center with new right lower extremity wounds. Initial episode was about 6 weeks ago where she was managed at [facility] for left lower extremity celulitis. She was subsequently seen 3 weeks after for her right thigh ulcer and investigations done per patient were without any significant abnormality. She has just completed a 10 day course of antibiotics. She feels well otherwise and denies chill, fever, nausea, vomitting or any change in bowel habit. Progress of Wound: Wound is improving with only very minimal area left. However appears to be having an allergic reaction to the 3M wraps. - Physical Exam Vital Signs Temp Pulse Resp BP 96.2 F L 66 18 141/70 H 01/03/18 09:26 01/03/18 09:26 10 09:26 01/03/18 09:26 General: Alert, Oriented x3, Cooperative, No apparent distress HEENT: Atraumatic Oral: Moist Mucosa Neck: Supple Lungs: Normal air movement Abdomen: Non Tender, Obese Extremities: No cyanosis, Edema, - - Maculopapular rash noted in the distal lower extremity Skin: Ulcer/ Wound, Rash Present Wound Measurements and Assessment WC - Nurse 1 - General Ulcer Measurement Start: 01/03/18 09:26 Freq: Status: Active Protocol: Activity Type Activity Date Activity User E-Sign Co-Sign Detail Recorded Client Recorded Date Recorded By Document 01/03/18 09:26 [facility] [id number] 01/03/18 09:31 [facility] 01/03/18 09:26 Wound Center Nurse 1 [Ulcer Assessment] #3 RIGHT LOWER ERVIN -Combined with other wound No -Current Size (cm) - Length 0.1 -Current Size (cm) - Width 0.1 -Current Size (cm) - Depth 0.1 -Total Square Cm 0.01 -Photo Taken No -Epithelialization Large 67-100% -Tunneling No -Undermining/Tunneling No -Circular Undermining No -Exudate Amt Small (1-33%) -Exudate Type Serous -Wound Margin Distinct, Outline Attached -Granulation Amt Large (67-100%) -Granulation Quality Red -Slough/Fibrin No -Necrosis Amt None Present (0 %) -Texture (Irene-wound Skin Appearance) Excoriation Scarring Rash -Moisture (Irene-wound Skin Appearance Dry/Scaly ) -Color (Irene-wound Skin Appearance) Erythema -Temperature (Irene-wound Skin No Abnormality Appearance) (Pt Warm) -Tenderness on Palpation (Irene-wound Yes Skin Appearance) -Ulcer Cleansing Wound Cleanser -Foul Odor after Cleansing No -Anesthetic Used 4% Lidocaine Solution [Edema Assessment] -Lower Limb Edema Present Yes -Right Calf (cm) 69 -Right Ankle (cm) 34 -Left Calf (cm) 77 -Left Ankle (cm) 38 WC - Nurse 2 - General Ulcer CM Notes Start: 01/03/18 09:26 Freq: Status: Active Protocol: Activity Type Activity Date Activity User E-Sign Co-Sign Detail Recorded Client Recorded Date Recorded By Document 01/03/18 09:51 MW [id number] 01/03/18 09:54 MW 01/03/18 09:51 Wound Center Nurse 2 [Procedure/Treatment] #3 RIGHT LOWER ERVIN -Time 09:51 -Correct Patient Yes -Correct Side, Site, Position Yes -Correct Procedure Yes -Procedure Performed Yes -Type of Procedure Debridement -Clinical Debridement Selective -Post Debridement Size (cm) - Length 0.6 -Post Debridement Size (cm) - Width 0.2 -Post Debridement Size (cm) - Depth 0.1 -Total Square Cm 0.12 -Wound/Ulcer Outcome Not Healed -Ulcer Cleansing Rinsed/ Irrigated with Saline -Foul Odor after Cleansing No -Bioengineered Tissue No -Bleeding Controlled with Pressure -Treatment Response Procedure Tolerated Well [See Physician Procedure note for Specifics] Pain Scale: 0-10 Numeric [Pain] -Is Patient Pain Free? Yes Musculoskeletal: No Muscle Wasting Neurological: Cranial nerves II-XII grossly intact Psych/Mental Status: Normal Affect Debridement Note Post-Debridement Measurements/Treatment WC - Nurse 2 - General Ulcer CM Notes Start: 01/03/18 09:26 Freq: Status: Active Protocol: Activity Type Activity Date Activity User E-Sign Co-Sign Detail Recorded Client Recorded Date Recorded By Document 01/03/18 09:51 MW [id number] 01/03/18 09:54 MW 01/03/18 09:51 Wound Center Nurse 2 #3 RIGHT LOWER ERVIN -Time 09:51 -Correct Patient Yes -Correct Side, Site, Position Yes -Correct Procedure Yes -Procedure Performed Yes -Type of Procedure Debridement -Clinical Debridement Selective -Post Debridement Size (cm) - Length 0.6 -Post Debridement Size (cm) - Width 0.2 -Post Debridement Size (cm) - Depth 0.1 -Total Square Cm 0.12 -Wound/Ulcer Outcome Not Healed -Ulcer Cleansing Rinsed/ Irrigated with Saline -Foul Odor after Cleansing No -Bioengineered Tissue No -Bleeding Controlled with Pressure -Treatment Response Procedure Tolerated Well Pain Scale: 0-10 Numeric Is Patient Pain Free? Yes Wound debrided: Right lower extremity Wound Grade/Stage: Stage II Type of Debridement: Selective debridement Anesthesia Used: 4% Lidocaine Solution Depth: Down to and including healthy tissue Percentage of wound debrided: 100 Instrument Used: 3mm curette Tissue Removed: Devitalized tissue Severity: Limited To Skin Breakdown Amount of bleeding with debridement: None Bleeding Controlled with: Pressure Patient tolerated procedure well Assessment/Plan Active Problems Chronic ulcer of right thigh with fat layer exposed (Chronic) Allergic reaction (Acute) Lymphedema (Chronic) Assessment: Right Medial Thigh ulcer with fat layer exposed. Right ervin ulcer with fat layer exposed. Chronic lymphedema. Resolving Cellulitis. Plan: Continues to show good improvement. Debridement done as documented above. Procedure was well-tolerated. Appears to be having an allergic reaction to the 3M wraps. She however does not do well with any other form of compression. Continue Promogran and leave in place for 1 week. Continue Light 3M wraps bilaterally and continue use of lymphedema pumps. Apply stockings before wrap. Follow-up in Monday for nurse visit. Elevate lower extremity when sitted and in bed. Claritin daily to help with allergic reaction. Follow up in 1 week. She was advised to call with any question or concerns. This note was generated with Betabrandation software. It may contain incorrect words, spelling, and punctuation that were not noted in checking the note before signing.
--- NOTE | 2018-01-03 10:15 | PN.PCM_ITS ---
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 Seth is 57 yo known to the wound center with PMH amongst other of chronic lymphedema / venous insufficiency who presents to the wound center with new right lower extremity wounds. Initial episode was about 6 weeks ago where she was managed at [facility] for left lower extremity celulitis. She was subsequently seen 3 weeks after for her right thigh ulcer and investigations done per patient were without any significant abnormality. She has just completed a 10 day course of antibiotics. She feels well otherwise and denies chill, fever, nausea, vomitting or any change in bowel habit. Progress of Wound: Wound is improving with only very minimal area left. However appears to be having an allergic reaction to the 3M wraps. - Physical Exam Vital Signs Temp Pulse Resp BP 96.2 F L 66 18 141/70 H 01/03/18 09:26 01/03/18 09:26 10 09:26 01/03/18 09:26 General: Alert, Oriented x3, Cooperative, No apparent distress HEENT: Atraumatic Oral: Moist Mucosa Neck: Supple Lungs: Normal air movement Abdomen: Non Tender, Obese Extremities: No cyanosis, Edema, - - Maculopapular rash noted in the distal lower extremity Skin: Ulcer/ Wound, Rash Present Wound Measurements and Assessment WC - Nurse 1 - General Ulcer Measurement Start: 01/03/18 09:26 Freq: Status: Active Protocol: Activity Type Activity Date Activity User E-Sign Co-Sign Detail Recorded Client Recorded Date Recorded By Document 01/03/18 09:26 [facility] [id number] 01/03/18 09:31 [facility] 01/03/18 09:26 Wound Center Nurse 1 [Ulcer Assessment] #3 RIGHT LOWER ERVIN -Combined with other wound No -Current Size (cm) - Length 0.1 -Current Size (cm) - Width 0.1 -Current Size (cm) - Depth 0.1 -Total Square Cm 0.01 -Photo Taken No -Epithelialization Large 67-100% -Tunneling No -Undermining/Tunneling No -Circular Undermining No -Exudate Amt Small (1-33%) -Exudate Type Serous -Wound Margin Distinct, Outline Attached -Granulation Amt Large (67-100%) -Granulation Quality Red -Slough/Fibrin No -Necrosis Amt None Present (0 %) -Texture (Irene-wound Skin Appearance) Excoriation Scarring Rash -Moisture (Irene-wound Skin Appearance Dry/Scaly ) -Color (Irene-wound Skin Appearance) Erythema -Temperature (Irene-wound Skin No Abnormality Appearance) (Pt Warm) -Tenderness on Palpation (Irene-wound Yes Skin Appearance) -Ulcer Cleansing Wound Cleanser -Foul Odor after Cleansing No -Anesthetic Used 4% Lidocaine Solution [Edema Assessment] -Lower Limb Edema Present Yes -Right Calf (cm) 69 -Right Ankle (cm) 34 -Left Calf (cm) 77 -Left Ankle (cm) 38 WC - Nurse 2 - General Ulcer CM Notes Start: 01/03/18 09:26 Freq: Status: Active Protocol: Activity Type Activity Date Activity User E-Sign Co-Sign Detail Recorded Client Recorded Date Recorded By Document 01/03/18 09:51 MW [id number] 01/03/18 09:54 MW 01/03/18 09:51 Wound Center Nurse 2 [Procedure/Treatment] #3 RIGHT LOWER ERVIN -Time 09:51 -Correct Patient Yes -Correct Side, Site, Position Yes -Correct Procedure Yes -Procedure Performed Yes -Type of Procedure Debridement -Clinical Debridement Selective -Post Debridement Size (cm) - Length 0.6 -Post Debridement Size (cm) - Width 0.2 -Post Debridement Size (cm) - Depth 0.1 -Total Square Cm 0.12 -Wound/Ulcer Outcome Not Healed -Ulcer Cleansing Rinsed/ Irrigated with Saline -Foul Odor after Cleansing No -Bioengineered Tissue No -Bleeding Controlled with Pressure -Treatment Response Procedure Tolerated Well [See Physician Procedure note for Specifics] Pain Scale: 0-10 Numeric [Pain] -Is Patient Pain Free? Yes Musculoskeletal: No Muscle Wasting Neurological: Cranial nerves II-XII grossly intact Psych/Mental Status: Normal Affect Debridement Note Post-Debridement Measurements/Treatment WC - Nurse 2 - General Ulcer CM Notes Start: 01/03/18 09:26 Freq: Status: Active Protocol: Activity Type Activity Date Activity User E-Sign Co-Sign Detail Recorded Client Recorded Date Recorded By Document 01/03/18 09:51 MW [id number] 01/03/18 09:54 MW 01/03/18 09:51 Wound Center Nurse 2 #3 RIGHT LOWER ERVIN -Time 09:51 -Correct Patient Yes -Correct Side, Site, Position Yes -Correct Procedure Yes -Procedure Performed Yes -Type of Procedure Debridement -Clinical Debridement Selective -Post Debridement Size (cm) - Length 0.6 -Post Debridement Size (cm) - Width 0.2 -Post Debridement Size (cm) - Depth 0.1 -Total Square Cm 0.12 -Wound/Ulcer Outcome Not Healed -Ulcer Cleansing Rinsed/ Irrigated with Saline -Foul Odor after Cleansing No -Bioengineered Tissue No -Bleeding Controlled with Pressure -Treatment Response Procedure Tolerated Well Pain Scale: 0-10 Numeric Is Patient Pain Free? Yes Wound debrided: Right lower extremity Wound Grade/Stage: Stage II Type of Debridement: Selective debridement Anesthesia Used: 4% Lidocaine Solution Depth: Down to and including healthy tissue Percentage of wound debrided: 100 Instrument Used: 3mm curette Tissue Removed: Devitalized tissue Severity: Limited To Skin Breakdown Amount of bleeding with debridement: None Bleeding Controlled with: Pressure Patient tolerated procedure well Assessment/Plan Active Problems Chronic ulcer of right thigh with fat layer exposed (Chronic) Allergic reaction (Acute) Lymphedema (Chronic) Assessment: Right Medial Thigh ulcer with fat layer exposed. Right ervin ulcer with fat layer exposed. Chronic lymphedema. Resolving Cellulitis. Plan: Continues to show good improvement. Debridement done as documented above. Procedure was well-tolerated. Appears to be having an allergic reaction to the 3M wraps. She however does not do well with any other form of compression. Continue Promogran and leave in place for 1 week. Continue Light 3M wraps bilaterally and continue use of lymphedema pumps. Apply stockings before wrap. Follow-up in Monday for nurse visit. Elevate lower extremity when sitted and in bed. Claritin daily to help with allergic reaction. Follow up in 1 week. She was advised to call with any question or concerns. This note was generated with OpenSkyation software. It may contain incorrect words, spelling, and punctuation that were not noted in checking the note before signing.
[2018-01-05 12:16] VITALS: BP 158/69; PULSE 69; RESP 18; TEMP 35.9
[2018-01-10 10:47] VITALS: BP 150/90; PULSE 68; RESP 18; TEMP 36
--- NOTE | 2018-01-10 10:49 | WC ---
pt removed 3M wraps bilat per self yesterday 01/09/18 at 1300. pt states were wrapped to loosely per home health and fell down so pt removed. Pt R medial thigh reddness mild warmth noted.
--- NOTE | 2018-01-10 11:30 | PCM.WC.PN ---
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 Seth is 57 yo known to the wound center with PMH amongst other of chronic lymphedema / venous insufficiency who presents to the wound center with new right lower extremity wounds. Initial episode was about 6 weeks ago where she was managed at [facility] for left lower extremity celulitis. She was subsequently seen 3 weeks after for her right thigh ulcer and investigations done per patient were without any significant abnormality. She has just completed a 10 day course of antibiotics. She feels well otherwise and denies chill, fever, nausea, vomitting or any change in bowel habit. Progress of Wound: Right lower extremity/ervin dermatitis appears to be improving however patient returns with more lower extremity swelling. She has had difficulties with her 3M wraps. She is also concerned about her right thigh pain and swelling. She recently was admitted in the hospital and had suspicion for right thigh abscess however imaging was not suggestive of any abscess. She was discharged on antibiotics at that time. She currently denies chills, fever otherwise feeling of unwell. - Physical Exam Vital Signs Temp Pulse Resp BP 96.8 F L 68 18 150/90 H 01/10/18 10:47 01/10/18 10:47 01/10/18 10:47 01/10/18 10:47 General: Alert, Oriented x3, Cooperative, No apparent distress HEENT: Atraumatic Oral: Moist Mucosa Neck: Supple Lungs: Normal air movement Abdomen: Non Tender, Obese Extremities: No cyanosis, Edema Skin: Rash Present Wound Measurements and Assessment WC - Nurse 1 - General Ulcer Measurement Start: 01/03/18 09:26 Freq: Status: Active Protocol: Activity Type Activity Date Activity User E-Sign Co-Sign Detail Recorded Client Recorded Date Recorded By Document 01/10/18 10:47 RB [id number] 01/10/18 11:05 RB 01/10/18 10:47 Wound Center Nurse 1 [Ulcer Assessment] #3 RIGHT LOWER ERVIN -Combined with other wound No -Current Size (cm) - Length 0.1 -Current Size (cm) - Width 0.1 -Current Size (cm) - Depth 0.1 -Total Square Cm 0.01 -Photo Taken No -Tunneling No -Undermining/Tunneling No -Circular Undermining No -Classification - Thickness Full Thickness without Exposed Support Structure -Exudate Amt Small (1-33%) -Exudate Type Serosanguineous -Wound Margin Distinct, Outline Attached -Granulation Amt Small (1-33%) -Granulation Quality [place] -Slough/Fibrin Yes -Necrosis Amt Medium (34-66%) -Necrotic Tissue Type Adherent Slough -Structure Exposed N/A -Texture (Irene-wound Skin Appearance) Assessed -Moisture (Irene-wound Skin Appearance Assessed ) -Color (Irene-wound Skin Appearance) Assessed -Temperature (Irene-wound Skin No Abnormality Appearance) (Pt Warm) -Tenderness on Palpation (Irene-wound No Skin Appearance) -Ulcer Cleansing Wound Cleanser -Foul Odor after Cleansing No -Anesthetic Used 5% Lidocaine Gel [Edema Assessment] -Lower Limb Edema Present Yes -Right Calf (cm) 70 -Right Ankle (cm) 34 -Left Calf (cm) 69.2 -Left Ankle (cm) 33.6 01/10/18 10:49 Wound Center by Arin Delgado pt removed 3M wraps bilat per self yesterday 01/09/18 at 1300. pt states were wrapped to loosely per home health and fell down so pt removed. Pt R medial thigh reddness mild warmth noted. Initialized on 01/10/18 10:49 - END OF NOTE WC - Nurse 2 - General Ulcer CM Notes Start: 01/03/18 09:26 Freq: Status: Active Protocol: Activity Type Activity Date Activity User E-Sign Co-Sign Detail Recorded Client Recorded Date Recorded By Document 01/10/18 11:16 MW [id number] 01/10/18 11:20 MW 01/10/18 11:16 Wound Center Nurse 2 [Procedure/Treatment] #3 RIGHT LOWER ERVIN -Time 11:17 -Correct Patient Yes -Correct Side, Site, Position Yes -Correct Procedure Yes -Procedure Performed No -Post Debridement Size (cm) - Length 0.1 -Post Debridement Size (cm) - Width 0.1 -Post Debridement Size (cm) - Depth 0.1 -Total Square Cm 0.01 -Wound/Ulcer Outcome Not Healed -Ulcer Cleansing Not Cleansed -Foul Odor after Cleansing No -Bioengineered Tissue No -Bleeding Controlled with NA -Treatment Response Procedure Tolerated Well [See Physician Procedure note for Specifics] Pain Scale: 0-10 Numeric [Pain] -Is Patient Pain Free? Yes Musculoskeletal: No Muscle Wasting Neurological: Cranial nerves II-XII grossly intact Psych/Mental Status: Normal Affect Debridement Note Post-Debridement Measurements/Treatment WC - Nurse 2 - General Ulcer CM Notes Start: 01/03/18 09:26 Freq: Status: Active Protocol: Activity Type Activity Date Activity User E-Sign Co-Sign Detail Recorded Client Recorded Date Recorded By Document 01/03/18 09:51 MW [id number] 01/03/18 09:54 MW Document 01/10/18 11:16 MW [id number] 01/10/18 11:20 MW 01/03/18 01/10/18 09:51 11:16 Wound Center Nurse 2 #3 RIGHT LOWER ERVIN -Time 09:51 11:17 -Correct Patient Yes Yes -Correct Side, Site, Position Yes Yes -Correct Procedure Yes Yes -Procedure Performed Yes No -Type of Procedure Debridement -Clinical Debridement Selective -Post Debridement Size (cm) - Length 0.6 0.1 -Post Debridement Size (cm) - Width 0.2 0.1 -Post Debridement Size (cm) - Depth 0.1 0.1 -Total Square Cm 0.12 0.01 -Wound/Ulcer Outcome Not Healed Not Healed -Ulcer Cleansing Rinsed/ Not Cleansed Irrigated with Saline -Foul Odor after Cleansing No No -Bioengineered Tissue No No -Bleeding Controlled with Pressure NA -Treatment Response Procedure Procedure Tolerated Well Tolerated Well Pain Scale: 0-10 Numeric Is Patient Pain Free? Yes Yes No debridement was completed today Assessment/Plan Active Problems (Last Updated 01/08/18 @ 09:53 by Adeline Andres) Chronic ulcer of right thigh with fat layer exposed (Chronic) Allergic reaction (Acute) Lymphedema (Chronic) Assessment: Right Medial Thigh ulcer with fat layer exposed. Right ervin ulcer with fat layer exposed. Chronic lymphedema. Resolving Cellulitis. Plan: Ulcers have essentially healed with only very superficial minor excoriations noted. No debridement was done today. Dermatitis is also improved. She however is most concerned about right thigh swelling and pain. No differential warmth appreciated. Air history of pain and swelling in that area and imaging done was not suggestive of any collection/abscess. She also recently had a cat scratch to the area. Will start on Augmentin and Bactrim. Apply Adaptic to right ervin, change daily. Bilateral Tomas wraps for edema management. Also continue use of lymphedema pumps. Elevate lower extremities when seated and in bed. Continue Claritin daily to help with allergic reaction. Follow up in 1 week. She was advised to call with any question or concerns. This note was generated with [employer]ista dictation software. It may contain incorrect words, spelling, and punctuation that were not noted in checking the note before signing.
--- NOTE | 2018-01-10 11:35 | PN.PCM_ITS ---
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 Seth is 57 yo known to the wound center with PMH amongst other of chronic lymphedema / venous insufficiency who presents to the wound center with new right lower extremity wounds. Initial episode was about 6 weeks ago where she was managed at [facility] for left lower extremity celulitis. She was subsequently seen 3 weeks after for her right thigh ulcer and investigations done per patient were without any significant abnormality. She has just completed a 10 day course of antibiotics. She feels well otherwise and denies chill, fever, nausea, vomitting or any change in bowel habit. Progress of Wound: Right lower extremity/ervin dermatitis appears to be improving however patient returns with more lower extremity swelling. She has had difficulties with her 3M wraps. She is also concerned about her right thigh pain and swelling. She recently was admitted in the hospital and had suspicion for right thigh abscess however imaging was not suggestive of any abscess. She was discharged on antibiotics at that time. She currently denies chills, fever otherwise feeling of unwell. - Physical Exam Vital Signs Temp Pulse Resp BP 96.8 F L 68 18 150/90 H 01/10/18 10:47 01/10/18 10:47 01/10/18 10:47 01/10/18 10:47 General: Alert, Oriented x3, Cooperative, No apparent distress HEENT: Atraumatic Oral: Moist Mucosa Neck: Supple Lungs: Normal air movement Abdomen: Non Tender, Obese Extremities: No cyanosis, Edema Skin: Rash Present Wound Measurements and Assessment WC - Nurse 1 - General Ulcer Measurement Start: 01/03/18 09:26 Freq: Status: Active Protocol: Activity Type Activity Date Activity User E-Sign Co-Sign Detail Recorded Client Recorded Date Recorded By Document 01/10/18 10:47 RB [id number] 01/10/18 11:05 RB 01/10/18 10:47 Wound Center Nurse 1 [Ulcer Assessment] #3 RIGHT LOWER ERVIN -Combined with other wound No -Current Size (cm) - Length 0.1 -Current Size (cm) - Width 0.1 -Current Size (cm) - Depth 0.1 -Total Square Cm 0.01 -Photo Taken No -Tunneling No -Undermining/Tunneling No -Circular Undermining No -Classification - Thickness Full Thickness without Exposed Support Structure -Exudate Amt Small (1-33%) -Exudate Type Serosanguineous -Wound Margin Distinct, Outline Attached -Granulation Amt Small (1-33%) -Granulation Quality [place] -Slough/Fibrin Yes -Necrosis Amt Medium (34-66%) -Necrotic Tissue Type Adherent Slough -Structure Exposed N/A -Texture (Irene-wound Skin Appearance) Assessed -Moisture (Irene-wound Skin Appearance Assessed ) -Color (Irene-wound Skin Appearance) Assessed -Temperature (Irene-wound Skin No Abnormality Appearance) (Pt Warm) -Tenderness on Palpation (Irene-wound No Skin Appearance) -Ulcer Cleansing Wound Cleanser -Foul Odor after Cleansing No -Anesthetic Used 5% Lidocaine Gel [Edema Assessment] -Lower Limb Edema Present Yes -Right Calf (cm) 70 -Right Ankle (cm) 34 -Left Calf (cm) 69.2 -Left Ankle (cm) 33.6 01/10/18 10:49 Wound Center by Arin Delgado pt removed 3M wraps bilat per self yesterday 01/09/18 at 1300. pt states were wrapped to loosely per home health and fell down so pt removed. Pt R medial thigh reddness mild warmth noted. Initialized on 01/10/18 10:49 - END OF NOTE WC - Nurse 2 - General Ulcer CM Notes Start: 01/03/18 09:26 Freq: Status: Active Protocol: Activity Type Activity Date Activity User E-Sign Co-Sign Detail Recorded Client Recorded Date Recorded By Document 01/10/18 11:16 MW [id number] 01/10/18 11:20 MW 01/10/18 11:16 Wound Center Nurse 2 [Procedure/Treatment] #3 RIGHT LOWER ERVIN -Time 11:17 -Correct Patient Yes -Correct Side, Site, Position Yes -Correct Procedure Yes -Procedure Performed No -Post Debridement Size (cm) - Length 0.1 -Post Debridement Size (cm) - Width 0.1 -Post Debridement Size (cm) - Depth 0.1 -Total Square Cm 0.01 -Wound/Ulcer Outcome Not Healed -Ulcer Cleansing Not Cleansed -Foul Odor after Cleansing No -Bioengineered Tissue No -Bleeding Controlled with NA -Treatment Response Procedure Tolerated Well [See Physician Procedure note for Specifics] Pain Scale: 0-10 Numeric [Pain] -Is Patient Pain Free? Yes Musculoskeletal: No Muscle Wasting Neurological: Cranial nerves II-XII grossly intact Psych/Mental Status: Normal Affect Debridement Note Post-Debridement Measurements/Treatment WC - Nurse 2 - General Ulcer CM Notes Start: 01/03/18 09:26 Freq: Status: Active Protocol: Activity Type Activity Date Activity User E-Sign Co-Sign Detail Recorded Client Recorded Date Recorded By Document 01/03/18 09:51 MW [id number] 01/03/18 09:54 MW Document 01/10/18 11:16 MW [id number] 01/10/18 11:20 MW 01/03/18 01/10/18 09:51 11:16 Wound Center Nurse 2 #3 RIGHT LOWER ERVIN -Time 09:51 11:17 -Correct Patient Yes Yes -Correct Side, Site, Position Yes Yes -Correct Procedure Yes Yes -Procedure Performed Yes No -Type of Procedure Debridement -Clinical Debridement Selective -Post Debridement Size (cm) - Length 0.6 0.1 -Post Debridement Size (cm) - Width 0.2 0.1 -Post Debridement Size (cm) - Depth 0.1 0.1 -Total Square Cm 0.12 0.01 -Wound/Ulcer Outcome Not Healed Not Healed -Ulcer Cleansing Rinsed/ Not Cleansed Irrigated with Saline -Foul Odor after Cleansing No No -Bioengineered Tissue No No -Bleeding Controlled with Pressure NA -Treatment Response Procedure Procedure Tolerated Well Tolerated Well Pain Scale: 0-10 Numeric Is Patient Pain Free? Yes Yes No debridement was completed today Assessment/Plan Active Problems (Last Updated 01/08/18 @ 09:53 by Adeline Andres) Chronic ulcer of right thigh with fat layer exposed (Chronic) Allergic reaction (Acute) Lymphedema (Chronic) Assessment: Right Medial Thigh ulcer with fat layer exposed. Right ervin ulcer with fat layer exposed. Chronic lymphedema. Resolving Cellulitis. Plan: Ulcers have essentially healed with only very superficial minor excori ations noted. No debridement was done today. Dermatitis is also improved. She however is most concerned about right thigh swelling and pain. No differential warmth appreciated. Air history of pain and swelling in that area and imaging done was not suggestive of any collection/abscess. She also recently had a cat scratch to the area. Will start on Augmentin and Bactrim. Apply Adaptic to rig ht ervin, change daily. Bilateral Tomas wraps for edema management. Also continue use of lymphedema pumps. Elevate lower extremities when seated and in bed. Continue Claritin daily to help with allergic reaction. Follow up in 1 week. She was advised to call with any question or concerns. This note was generated with [employer] dictation software. It may contain incorrect words, spelling, and punctuation that were not noted in checking the note before signing.
[2018-01-17 11:03] VITALS: BP 158/84; PULSE 69; RESP 18; TEMP 36
--- NOTE | 2018-01-17 13:18 | PCM.WC.PN ---
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 Seth is 57 yo known to the wound center with PMH amongst other of chronic lymphedema / venous insufficiency who presents to the wound center with new right lower extremity wounds. Initial episode was about 6 weeks ago where she was managed at [facility] for left lower extremity celulitis. She was subsequently seen 3 weeks after for her right thigh ulcer and investigations done per patient were without any significant abnormality. She has just completed a 10 day course of antibiotics. She feels well otherwise and denies chill, fever, nausea, vomitting or any change in bowel habit. Progress of Wound: Toña presents with a new right lower extremity lateral wound. Denies any known precipitating factor. Dermatitis still present however no worsening. No differential warmth or tenderness. - Physical Exam Vital Signs Temp Pulse Resp BP 96.8 F L 69 18 158/84 H 01/17/18 11:03 01/17/18 11:03 01/17/18 11:03 01/17/18 11:03 General: Alert, Oriented x3, Cooperative, No apparent distress HEENT: Atraumatic Oral: Moist Mucosa Neck: Supple Lungs: Normal air movement Abdomen: Obese Extremities: No cyanosis, Edema Skin: Ulcer/ Wound Wound Measurements and Assessment WC - Nurse 1 - General Ulcer Measurement Start: 01/03/18 09:26 Freq: Status: Active Protocol: Activity Type Activity Date Activity User E-Sign Co-Sign Detail Recorded Client Recorded Date Recorded By Document 01/17/18 11:03 RB [id number] 01/17/18 11:09 RB 01/17/18 11:03 Wound Center Nurse 1 [Ulcer Assessment] #3 RIGHT LOWER ERVIN -Combined with other wound No -Current Size (cm) - Length 0.8 -Current Size (cm) - Width 4 -Current Size (cm) - Depth 0.1 -Total Square Cm 3.2 -Photo Taken No -Tunneling No -Undermining/Tunneling No -Circular Undermining No -Exudate Amt Small (1-33%) -Exudate Type Serosanguineous -Wound Margin Distinct, Outline Attached -Granulation Amt Large (67-100%) -Granulation Quality Red -Slough/Fibrin Yes -Necrosis Amt Small (1-33%) -Necrotic Tissue Type Adherent Slough -Structure Exposed N/A -Texture (Irene-wound Skin Appearance) Assessed -Moisture (Irene-wound Skin Appearance Dry/Scaly ) -Color (Irene-wound Skin Appearance) Assessed -Temperature (Irene-wound Skin No Abnormality Appearance) (Pt Warm) -Tenderness on Palpation (Irene-wound No Skin Appearance) -Ulcer Cleansing Wound Cleanser -Foul Odor after Cleansing No -Anesthetic Used 5% Lidocaine Gel [Edema Assessment] -Lower Limb Edema Present No -Right Calf (cm) 67 -Right Ankle (cm) 31.5 -Left Calf (cm) 33.3 -Left Ankle (cm) 68.5 WC - Nurse 2 - General Ulcer CM Notes Start: 01/03/18 09:26 Freq: Status: Active Protocol: Activity Type Activity Date Activity User E-Sign Co-Sign Detail Recorded Client Recorded Date Recorded By Document 01/17/18 12:08 MW [id number] 01/17/18 12:13 MW 01/17/18 12:08 Wound Center Nurse 2 [Procedure/Treatment] #5 right medial le -Time 11:40 -Correct Patient Yes -Correct Side, Site, Position Yes -Correct Procedure Yes -Procedure Performed Yes -Type of Procedure Debridement -Clinical Debridement Subcutaneous -Post Debridement Size (cm) - Length 0.7 -Post Debridement Size (cm) - Width 4.0 -Post Debridement Size (cm) - Depth 0.1 -Total Square Cm 2.80 -Wound/Ulcer Outcome Not Healed -Ulcer Cleansing Rinsed/ Irrigated with Saline -Foul Odor after Cleansing No -Bioengineered Tissue No -Bleeding Controlled with Pressure -Treatment Response Procedure Tolerated Well [See Physician Procedure note for Specifics] Pain Scale: 0-10 Numeric [Pain] -Is Patient Pain Free? Yes Musculoskeletal: No Muscle Wasting Neurological: Cranial nerves II-XII grossly intact Psych/Mental Status: Normal Affect Debridement Note Post-Debridement Measurements/Treatment WC - Nurse 2 - General Ulcer CM Notes Start: 01/03/18 09:26 Freq: Status: Active Protocol: Activity Type Activity Date Activity User E-Sign Co-Sign Detail Recorded Client Recorded Date Recorded By Document 01/03/18 09:51 MW [id number] 01/03/18 09:54 MW Document 01/10/18 11:16 MW [id number] 01/10/18 11:20 MW Document 01/17/18 12:08 MW [id number] 01/17/18 12:13 MW 01/03/18 01/10/18 01/17/18 09:51 11:16 12:08 Wound Center Nurse 2 #5 right medial le -Time 11:40 -Correct Patient Yes -Correct Side, Site, Position Yes -Correct Procedure Yes -Procedure Performed Yes -Type of Procedure Debridement -Clinical Debridement Subcutaneous -Post Debridement Size (cm) - Length 0.7 -Post Debridement Size (cm) - Width 4.0 -Post Debridement Size (cm) - Depth 0.1 -Total Square Cm 2.80 -Wound/Ulcer Outcome Not Healed -Ulcer Cleansing Rinsed/ Irrigated with Saline -Foul Odor after Cleansing No -Bioengineered Tissue No -Bleeding Controlled with Pressure -Treatment Response Procedure Tolerated Well #3 RIGHT LOWER ERVIN -Time 09:51 11:17 -Correct Patient Yes Yes -Correct Side, Site, Position Yes Yes -Correct Procedure Yes Yes -Procedure Performed Yes No -Type of Procedure Debridement -Clinical Debridement Selective -Post Debridement Size (cm) - Length 0.6 0.1 -Post Debridement Size (cm) - Width 0.2 0.1 -Post Debridement Size (cm) - Depth 0.1 0.1 -Total Square Cm 0.12 0.01 -Wound/Ulcer Outcome Not Healed Not Healed -Ulcer Cleansing Rinsed/ Not Cleansed Irrigated with Saline -Foul Odor after Cleansing No No -Bioengineered Tissue No No -Bleeding Controlled with Pressure NA -Treatment Response Procedure Procedure Tolerated Well Tolerated Well Pain Scale: 0-10 Numeric Is Patient Pain Free? Yes Yes Yes Wound debrided: Right lower extremity lateral Wound Grade/Stage: Stage II Type of Debridement: Excisional debridement Anesthesia Used: 4% Lidocaine Solution Depth: Down to and including healthy tissue, in the subcutaneous layer Percentage of wound debrided: 100 Instrument Used: 7mm curette Tissue Removed: Slough and devitalized tissue Severity: Fat Layer Exposed Amount of bleeding with debridement: Mild Bleeding Controlled with: Pressure Patient tolerated procedure well Assessment/Plan Active Problems (Last Updated 01/11/18 @ 08:41 by Adeline Andres) Chronic ulcer of right thigh with fat layer exposed (Chronic) Allergic reaction (Acute) Lymphedema (Chronic) Assessment: Right Medial Thigh ulcer with fat layer exposed. Right ervin ulcer with fat layer exposed. Chronic lymphedema. Resolving Cellulitis. Plan: She presents with a right lower extremity lateral ulcer. Denies any known precipitating factor. Right thigh swelling and tenderness has improved with Augmentin. Debridement of right lower extremity ulcer done, procedure was well-tolerated. Continue Devika daily with Adaptic over top. Tomas wraps for edema management. Also continue use of lymphedema pumps. Elevate lower extremities when seated and in bed. Continue Claritin daily to help with allergic reaction. Increased protein intake/supplements recommended. Follow up in 1 week. She was advised to call with any question or concerns. This note was generated with [employer] dictation software. It may contain incorrect words, spelling, and punctuation that were not noted in checking the note before signing.
--- NOTE | 2018-01-17 13:22 | PN.PCM_ITS ---
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 Seth is 57 yo known to the wound center with PMH amongst other of chronic lymphedema / venous insufficiency who presents to the wound center with new right lower extremity wounds. Initial episode was about 6 weeks ago where she was managed at [facility] for left lower extremity celulitis. She was subsequently seen 3 weeks after for her right thigh ulcer and investigations done per patient were without any significant abnormality. She has just completed a 10 day course of antibiotics. She feels well otherwise and denies chill, fever, nausea, vomitting or any change in bowel habit. Progress of Wound: Toña presents with a new right lower extremity lateral wound. Denies any known precipitating factor. Dermatitis still present however no worsening. No differential warmth or tenderness. - Physical Exam Vital Signs Temp Pulse Resp BP 96.8 F L 69 18 158/84 H 01/17/18 11:03 01/17/18 11:03 01/17/18 11:03 01/17/18 11:03 General: Alert, Oriented x3, Cooperative, No apparent distress HEENT: Atraumatic Oral: Moist Mucosa Neck: Supple Lungs: Normal air movement Abdomen: Obese Extremities: No cyanosis, Edema Skin: Ulcer/ Wound Wound Measurements and Assessment WC - Nurse 1 - General Ulcer Measurement Start: 01/03/18 09:26 Freq: Status: Active Protocol: Activity Type Activity Date Activity User E-Sign Co-Sign Detail Recorded Client Recorded Date Recorded By Document 01/17/18 11:03 RB [id number] 01/17/18 11:09 RB 01/17/18 11:03 Wound Center Nurse 1 [Ulcer Assessment] #3 RIGHT LOWER ERVIN -Combined with other wound No -Current Size (cm) - Length 0.8 -Current Size (cm) - Width 4 -Current Size (cm) - Depth 0.1 -Total Square Cm 3.2 -Photo Taken No -Tunneling No -Undermining/Tunneling No -Circular Undermining No -Exudate Amt Small (1-33%) -Exudate Type Serosanguineous -Wound Margin Distinct, Outline Attached -Granulation Amt Large (67-100%) -Granulation Quality Red -Slough/Fibrin Yes -Necrosis Amt Small (1-33%) -Necrotic Tissue Type Adherent Slough -Structure Exposed N/A -Texture (Irene-wound Skin Appearance) Assessed -Moisture (Irene-wound Skin Appearance Dry/Scaly ) -Color (Irene-wound Skin Appearance) Assessed -Temperature (Irene-wound Skin No Abnormality Appearance) (Pt Warm) -Tenderness on Palpation (Irene-wound No Skin Appearance) -Ulcer Cleansing Wound Cleanser -Foul Odor after Cleansing No -Anesthetic Used 5% Lidocaine Gel [Edema Assessment] -Lower Limb Edema Present No -Right Calf (cm) 67 -Right Ankle (cm) 31.5 -Left Calf (cm) 33.3 -Left Ankle (cm) 68.5 WC - Nurse 2 - General Ulcer CM Notes Start: 01/03/18 09:26 Freq: Status: Active Protocol: Activity Type Activity Date Activity User E-Sign Co-Sign Detail Recorded Client Recorded Date Recorded By Document 01/17/18 12:08 MW [id number] 01/17/18 12:13 MW 01/17/18 12:08 Wound Center Nurse 2 [Procedure/Treatment] #5 right medial le -Time 11:40 -Correct Patient Yes -Correct Side, Site, Position Yes -Correct Procedure Yes -Procedure Performed Yes -Type of Procedure Debridement -Clinical Debridement Subcutaneous -Post Debridement Size (cm) - Length 0.7 -Post Debridement Size (cm) - Width 4.0 -Post Debridement Size (cm) - Depth 0.1 -Total Square Cm 2.80 -Wound/Ulcer Outcome Not Healed -Ulcer Cleansing Rinsed/ Irrigated with Saline -Foul Odor after Cleansing No -Bioengineered Tissue No -Bleeding Controlled with Pressure -Treatment Response Procedure Tolerated Well [See Physician Procedure note for Specifics] Pain Scale: 0-10 Numeric [Pain] -Is Patient Pain Free? Yes Musculoskeletal: No Muscle Wasting Neurological: Cranial nerves II-XII grossly intact Psych/Mental Status: Normal Affect Debridement Note Post-Debridement Measurements/Treatment WC - Nurse 2 - General Ulcer CM Notes Start: 01/03/18 09:26 Freq: Status: Active Protocol: Activity Type Activity Date Activity User E-Sign Co-Sign Detail Recorded Client Recorded Date Recorded By Document 01/03/18 09:51 MW [id number] 01/03/18 09:54 MW Document 01/10/18 11:16 MW [id number] 01/10/18 11:20 MW Document 01/17/18 12:08 MW [id number] 01/17/18 12:13 MW 01/03/18 01/10/18 01/17/18 09:51 11:16 12:08 Wound Center Nurse 2 #5 right medial le -Time 11:40 -Correct Patient Yes -Correct Side, Site, Position Yes -Correct Procedure Yes -Procedure Performed Yes -Type of Procedure Debridement -Clinical Debridement Subcutaneous -Post Debridement Size (cm) - Length 0.7 -Post Debridement Size (cm) - Width 4.0 -Post Debridement Size (cm) - Depth 0.1 -Total Square Cm 2.80 -Wound/Ulcer Outcome Not Healed -Ulcer Cleansing Rinsed/ Irrigated with Saline -Foul Odor after Cleansing No -Bioengineered Tissue No -Bleeding Controlled with Pressure -Treatment Response Procedure Tolerated Well #3 RIGHT LOWER ERVIN -Time 09:51 11:17 -Correct Patient Yes Yes -Correct Side, Site, Position Yes Yes -Correct Procedure Yes Yes -Procedure Performed Yes No -Type of Procedure Debridement -Clinical Debridement Selective -Post Debridement Size (cm) - Length 0.6 0.1 -Post Debridement Size (cm) - Width 0.2 0.1 -Post Debridement Size (cm) - Depth 0.1 0.1 -Total Square Cm 0.12 0.01 -Wound/Ulcer Outcome Not Healed Not Healed -Ulcer Cleansing Rinsed/ Not Cleansed Irrigated with Saline -Foul Odor after Cleansing No No -Bioengineered Tissue No No -Bleeding Controlled with Pressure NA -Treatment Response Procedure Procedure Tolerated Well Tolerated Well Pain Scale: 0-10 Numeric Is Patient Pain Free? Yes Yes Yes Wound debrided: Right lower extremity lateral Wound Grade/Stage: Stage II Type of Debridement: Excisional debridement Anesthesia Used: 4% Lidocaine Solution Depth: Down to and including healthy tissue, in the subcutaneous layer Percentage of wound debrided: 100 Instrument Used: 7mm curette Tissue Removed: Slough and devitalized tissue Severity: Fat Layer Exposed Amount of bleeding with debridement: Mild Bleeding Controlled with: Pressure Patient tolerated procedure well Assessment/Plan Active Problems (Last Updated 01/11/18 @ 08:41 by Adeline Andres) Chronic ulcer of right thigh with fat layer exposed (Chronic) Allergic reaction (Acute) Lymphedema (Chronic) Assessment: Right Medial Thigh ulcer with fat layer exposed. Right ervin ulcer with fat layer exposed. Chronic lymphedema. Resolving Cellulitis. Plan: She presents with a right lower extremity lateral ulcer. Denies any known precipitating factor. Right thigh swelling and tenderness has improved with Augmentin. Debridement of right lower extremity ulcer done, procedure was well- tolerated. Continue Devika daily with Adaptic over top. Tomas wraps for edema management. Also continue use of lymphedema pumps. Elevate lower extremities when seated and in bed. Continue Claritin daily to help with allergic reaction. Increased protein intake/supplements recommended. Follow up in 1 week. She was advised to call with any question or concerns. This note was generated with [employer] dictation software. It may contain incorrect words, spelling, and punctuation that were not noted in checking the note before signing.
[2018-01-24 10:10] VITALS: BP 137/72; PULSE 62; RESP 18; TEMP 36.4
--- NOTE | 2018-01-24 10:44 | PN.PCM_ITS ---
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 Seth is 57 yo known to the wound center with PMH amongst other of chronic lymphedema / venous insufficiency who presents to the wound center with new right lower extremity wounds. Initial episode was about 6 weeks ago where she was managed at [facility] for left lower extremity celulitis. She was subsequently seen 3 weeks after for her right thigh ulcer and investigations done per patient were without any significant abnormality. She has just completed a 10 day course of antibiotics. She feels well otherwise and denies chill, fever, nausea, vomitting or any change in bowel habit. Progress of Wound: Improving. - Physical Exam Vital Signs Temp Pulse Resp BP 97.5 F L 62 18 137/72 H 01/24/18 10:10 01/24/18 10:10 01/24/18 10:10 01/24/18 10:10 General: Alert, Oriented x3, Cooperative, No apparent distress HEENT: Atraumatic Oral: Moist Mucosa Neck: Supple Lungs: Normal air movement Abdomen: Soft, Non Tender Extremities: No cyanosis, Edema Skin: Ulcer/ Wound Wound Measurements and Assessment WC - Nurse 1 - General Ulcer Measurement Start: 01/03/18 09:26 Freq: Status: Active Protocol: Activity Type Activity Date Activity User E-Sign Co-Sign Detail Recorded Client Recorded Date Recorded By Document 01/24/18 10:10 RB [id number] 01/24/18 10:21 RB 01/24/18 10:10 Wound Center Nurse 1 [Ulcer Assessment] #5 right medial le -Combined with other wound No -Current Size (cm) - Length 0.1 -Current Size (cm) - Width 0.1 -Current Size (cm) - Depth 0.1 -Total Square Cm 0.01 -Photo Taken No -Tunneling No -Undermining/Tunneling No -Circular Undermining No -Classification - Thickness Full Thickness without Exposed Support Structure -Exudate Amt None Present (0 %) -Wound Margin Distinct, Outline Attached -Granulation Amt Medium (34-66%) -Granulation Quality [place] -Slough/Fibrin Yes -Necrosis Amt Small (1-33%) -Necrotic Tissue Type Adherent Slough -Structure Exposed N/A -Texture (Irene-wound Skin Appearance) Assessed -Moisture (Irene-wound Skin Appearance Assessed ) -Color (Irene-wound Skin Appearance) Assessed -Ulcer Cleansing Wound Cleanser -Foul Odor after Cleansing No -Anesthetic Used 5% Lidocaine Gel [Edema Assessment] -Lower Limb Edema Present Yes -Right Calf (cm) 70.3 -Right Ankle (cm) 33.5 -Left Calf (cm) 67.5 -Left Ankle (cm) 30.5 WC - Nurse 2 - General Ulcer CM Notes Start: 01/03/18 09:26 Freq: Status: Active Protocol: Activity Type Activity Date Activity User E-Sign Co-Sign Detail Recorded Client Recorded Date Recorded By Document 01/24/18 10:32 MW [id number] 01/24/18 10:37 MW 01/24/18 10:32 Wound Center Nurse 2 [Procedure/Treatment] #5 right medial le -Time 10:32 -Correct Patient Yes -Correct Side, Site, Position Yes -Correct Procedure Yes -Procedure Performed Yes -Type of Procedure Debridement -Clinical Debridement Subcutaneous -Post Debridement Size (cm) - Length 0.3 -Post Debridement Size (cm) - Width 1.0 -Post Debridement Size (cm) - Depth 0.1 -Total Square Cm 0.30 -Wound/Ulcer Outcome Not Healed -Ulcer Cleansing Rinsed/ Irrigated with Saline -Foul Odor after Cleansing No -Bioengineered Tissue No -Bleeding Controlled with Pressure -Treatment Response Procedure Tolerated Well [See Physician Procedure note for Specifics] Pain Scale: 0-10 Numeric [Pain] -Is Patient Pain Free? Yes Musculoskeletal: No Muscle Wasting Neurological: Cranial nerves II-XII grossly intact Psych/Mental Status: Normal Affect Debridement Note Post-Debridement Measurements/Treatment WC - Nurse 2 - General Ulcer CM Notes Start: 01/03/18 09:26 Freq: Status: Active Protocol: Activity Type Activity Date Activity User E-Sign Co-Sign Detail Recorded Client Recorded Date Recorded By Document 01/03/18 09:51 MW [id number] 01/03/18 09:54 MW Document 01/10/18 11:16 MW [id number] 01/10/18 11:20 MW Document 01/17/18 12:08 MW [id number] 01/17/18 12:13 MW Document 01/24/18 10:32 MW [id number] 01/24/18 10:37 MW 01/03/18 01/10/18 01/17/18 09:51 11:16 12:08 Wound Center Nurse 2 #5 right medial le -Time 11:40 -Correct Patient Yes -Correct Side, Site, Position Yes -Correct Procedure Yes -Procedure Performed Yes -Type of Procedure Debridement -Clinical Debridement Subcutaneous -Post Debridement Size (cm) - Length 0.8 -Post Debridement Size (cm) - Width 4.0 -Post Debridement Size (cm) - Depth 0.1 -Total Square Cm 3.20 -Wound/Ulcer Outcome Not Healed -Ulcer Cleansing Rinsed/ Irrigated with Saline -Foul Odor after Cleansing No -Bioengineered Tissue No -Bleeding Controlled with Pressure -Treatment Response Procedure Tolerated Well #3 RIGHT LOWER ERVIN -Time 09:51 11:17 -Correct Patient Yes Yes -Correct Side, Site, Position Yes Yes -Correct Procedure Yes Yes -Procedure Performed Yes No -Type of Procedure Debridement -Clinical Debridement Selective -Post Debridement Size (cm) - Length 0.6 0.1 -Post Debridement Size (cm) - Width 0.2 0.1 -Post Debridement Size (cm) - Depth 0.1 0.1 -Total Square Cm 0.12 0.01 -Wound/Ulcer Outcome Not Healed Not Healed -Ulcer Cleansing Rinsed/ Not Cleansed Irrigated with Saline -Foul Odor after Cleansing No No -Bioengineered Tissue No No -Bleeding Controlled with Pressure NA -Treatment Response Procedure Procedure Tolerated Well Tolerated Well Pain Scale: 0-10 Numeric Is Patient Pain Free? Yes Yes Yes 01/24/18 10:32 Wound Center Nurse 2 #5 right medial le -Time 10:32 -Correct Patient Yes -Correct Side, Site, Position Yes -Correct Procedure Yes -Procedure Performed Yes -Type of Procedure Debridement -Clinical Debridement Subcutaneous -Post Debridement Size (cm) - Length 0.3 -Post Debridement Size (cm) - Width 1.0 -Post Debridement Size (cm) - Depth 0.1 -Total Square Cm 0.30 -Wound/Ulcer Outcome Not Healed -Ulcer Cleansing Rinsed/ Irrigated with Saline -Foul Odor after Cleansing No -Bioengineered Tissue No -Bleeding Controlled with Pressure -Treatment Response Procedure Tolerated Well #3 RIGHT LOWER ERVIN -Time -Correct Patient -Correct Side, Site, Position -Correct Procedure -Procedure Performed -Type of Procedure -Clinical Debridement -Post Debridement Size (cm) - Length -Post Debridement Size (cm) - Width -Post Debridement Size (cm) - Depth -Total Square Cm -Wound/Ulcer Outcome -Ulcer Cleansing -Foul Odor after Cleansing -Bioengineered Tissue -Bleeding Controlled with -Treatment Response Pain Scale: 0-10 Numeric Is Patient Pain Free? 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 Right ervin ulcer with fat layer exposed. Chronic lymphedema. Resolving Cellulitis. Plan: Improving. No new complaints at this time. Debridement of right lower extremity ulcer done, procedure was well-tolerated. Continue Devika daily with Adaptic over top. Tomas wraps for edema management. Xeroform to periwound erythema. Also continue use of lymphedema pumps. Elevate lower extremities when seated and in bed. Continue Claritin daily to help with allergic reaction. Increased protein intake/supplements recommended. Follow up in 1 week. She was advised to call with any question or concerns. This note was generated with [employer] software. It may contain incorrect words, spelling, and punc tuation that were not noted in checking the note before signing.
[2018-01-31 09:22] VITALS: BP 148/91; PULSE 78; RESP 18; TEMP 36.3
--- NOTE | 2018-01-31 09:39 | PCM.WC.PN ---
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 Seth is 57 yo known to the wound center with PMH amongst other of chronic lymphedema / venous insufficiency who presents to the wound center with new right lower extremity wounds. Initial episode was about 6 weeks ago where she was managed at [facility] for left lower extremity celulitis. She was subsequently seen 3 weeks after for her right thigh ulcer and investigations done per patient were without any significant abnormality. She has just completed a 10 day course of antibiotics. She feels well otherwise and denies chill, fever, nausea, vomitting or any change in bowel habit. Progress of Wound: Healed. - Physical Exam Vital Signs Temp Pulse Resp BP 97.3 F L 78 18 148/91 H 01/31/18 09:22 01/31/18 09:22 01/31/18 09:22 01/31/18 09:22 General: Alert, Oriented x3, Cooperative, No apparent distress HEENT: Atraumatic Oral: Moist Mucosa Neck: Supple Lungs: Normal air movement Abdomen: Non Tender, Obese Extremities: No cyanosis, Edema Wound Measurements and Assessment WC - Nurse 1 - General Ulcer Measurement Start: 01/03/18 09:26 Freq: Status: Active Protocol: Activity Type Activity Date Activity User E-Sign Co-Sign Detail Recorded Client Recorded Date Recorded By Document 01/31/18 09:22 [id number] 01/31/18 09:28 01/31/18 09:22 Wound Center Nurse 1 [Ulcer Assessment] #5 right medial le -Combined with other wound No -Current Size (cm) - Length 0.1 -Current Size (cm) - Width 0.1 -Current Size (cm) - Depth 0.1 -Total Square Cm 0.01 -Photo Taken No -Epithelialization Large 67-100% -Tunneling No -Undermining/Tunneling No -Circular Undermining No [Edema Assessment] -Lower Limb Edema Present Yes -Right Calf (cm) 69 -Right Ankle (cm) 32 -Left Calf (cm) 62.5 -Left Ankle (cm) 34 Musculoskeletal: No Muscle Wasting Neurological: Cranial nerves II-XII grossly intact Debridement Note Post-Debridement Measurements/Treatment WC - Nurse 2 - General Ulcer CM Notes Start: 01/03/18 09:26 Freq: Status: Active Protocol: Activity Type Activity Date Activity User E-Sign Co-Sign Detail Recorded Client Recorded Date Recorded By Document 01/03/18 09:51 MW [id number] 01/03/18 09:54 MW Document 01/10/18 11:16 MW [id number] 01/10/18 11:20 MW Document 01/17/18 12:08 MW [id number] 01/17/18 12:13 MW Document 01/24/18 10:32 MW [id number] 01/24/18 10:37 MW 01/03/18 01/10/18 01/17/18 09:51 11:16 12:08 Wound Center Nurse 2 #5 right medial le -Time 11:40 -Correct Patient Yes -Correct Side, Site, Position Yes -Correct Procedure Yes -Procedure Performed Yes -Type of Procedure Debridement -Clinical Debridement Subcutaneous -Post Debridement Size (cm) - Length 0.8 -Post Debridement Size (cm) - Width 4.0 -Post Debridement Size (cm) - Depth 0.1 -Total Square Cm 3.20 -Wound/Ulcer Outcome Not Healed -Ulcer Cleansing Rinsed/ Irrigated with Saline -Foul Odor after Cleansing No -Bioengineered Tissue No -Bleeding Controlled with Pressure -Treatment Response Procedure Tolerated Well #3 RIGHT LOWER ERVIN -Time 09:51 11:17 -Correct Patient Yes Yes -Correct Side, Site, Position Yes Yes -Correct Procedure Yes Yes -Procedure Performed Yes No -Type of Procedure Debridement -Clinical Debridement Selective -Post Debridement Size (cm) - Length 0.6 0.1 -Post Debridement Size (cm) - Width 0.2 0.1 -Post Debridement Size (cm) - Depth 0.1 0.1 -Total Square Cm 0.12 0.01 -Wound/Ulcer Outcome Not Healed Not Healed -Ulcer Cleansing Rinsed/ Not Cleansed Irrigated with Saline -Foul Odor after Cleansing No No -Bioengineered Tissue No No -Bleeding Controlled with Pressure NA -Treatment Response Procedure Procedure Tolerated Well Tolerated Well Pain Scale: 0-10 Numeric Is Patient Pain Free? Yes Yes Yes 01/24/18 10:32 Wound Center Nurse 2 #5 right medial le -Time 10:32 -Correct Patient Yes -Correct Side, Site, Position Yes -Correct Procedure Yes -Procedure Performed Yes -Type of Procedure Debridement -Clinical Debridement Subcutaneous -Post Debridement Size (cm) - Length 0.3 -Post Debridement Size (cm) - Width 1.0 -Post Debridement Size (cm) - Depth 0.1 -Total Square Cm 0.30 -Wound/Ulcer Outcome Not Healed -Ulcer Cleansing Rinsed/ Irrigated with Saline -Foul Odor after Cleansing No -Bioengineered Tissue No -Bleeding Controlled with Pressure -Treatment Response Procedure Tolerated Well #3 RIGHT LOWER ERVIN -Time -Correct Patient -Correct Side, Site, Position -Correct Procedure -Procedure Performed -Type of Procedure -Clinical Debridement -Post Debridement Size (cm) - Length -Post Debridement Size (cm) - Width -Post Debridement Size (cm) - Depth -Total Square Cm -Wound/Ulcer Outcome -Ulcer Cleansing -Foul Odor after Cleansing -Bioengineered Tissue -Bleeding Controlled with -Treatment Response Pain Scale: 0-10 Numeric Is Patient Pain Free? 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 Right ervin ulcer with fat layer exposed. Chronic lymphedema. Resolving Cellulitis. Plan: healed. Periwound dermatitis also improved. Continue Tomas wraps for edema management and Xeroform to periwound erythema. Also continue use of lymphedema pumps. Elevate lower extremities when seated and in bed. Continue Claritin daily to help with allergic reaction. Aquaphor healing ointment recommended. Discharge fom the wound center. She was advised to call with any question or concerns. This note was generated with [employer] software. It may contain incorrect words, spelling, and punctuation that were not noted in checking the note before signing.
--- NOTE | 2018-01-31 09:42 | PN.PCM_ITS ---
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 Seth is 57 yo known to the wound center with PMH amongst other of chronic lymphedema / venous insufficiency who presents to the wound center with new right lower extremity wounds. Initial episode was about 6 weeks ago where she was managed at [facility] for left lower extremity celulitis. She was subsequently seen 3 weeks after for her right thigh ulcer and investigations done per patient were without any significant abnormality. She has just completed a 10 day course of antibiotics. She feels well otherwise and denies chill, fever, nausea, vomitting or any change in bowel habit. Progress of Wound: Healed. - Physical Exam Vital Signs Temp Pulse Resp BP 97.3 F L 78 18 148/91 H 01/31/18 09:22 01/31/18 09:22 01/31/18 09:22 01/31/18 09:22 General: Alert, Oriented x3, Cooperative, No apparent distress HEENT: Atraumatic Oral: Moist Mucosa Neck: Supple Lungs: Normal air movement Abdomen: Non Tender, Obese Extremities: No cyanosis, Edema Wound Measurements and Assessment WC - Nurse 1 - General Ulcer Measurement Start: 01/03/18 09:26 Freq: Status: Active Protocol: Activity Type Activity Date Activity User E-Sign Co-Sign Detail Recorded Client Recorded Date Recorded By Document 01/31/18 09:22 [id number] 01/31/18 09:28 01/31/18 09:22 Wound Center Nurse 1 [Ulcer Assessment] #5 right medial le -Combined with other wound No -Current Size (cm) - Length 0.1 -Current Size (cm) - Width 0.1 -Current Size (cm) - Depth 0.1 -Total Square Cm 0.01 -Photo Taken No -Epithelialization Large 67-100% -Tunneling No -Undermining/Tunneling No -Circular Undermining No [Edema Assessment] -Lower Limb Edema Present Yes -Right Calf (cm) 69 -Right Ankle (cm) 32 -Left Calf (cm) 62.5 -Left Ankle (cm) 34 Musculoskeletal: No Muscle Wasting Neurological: Cranial nerves II-XII grossly intact Debridement Note Post-Debridement Measurements/Treatment WC - Nurse 2 - General Ulcer CM Notes Start: 01/03/18 09:26 Freq: Status: Active Protocol: Activity Type Activity Date Activity User E-Sign Co-Sign Detail Recorded Client Recorded Date Recorded By Document 01/03/18 09:51 MW [id number] 01/03/18 09:54 MW Document 01/10/18 11:16 MW [id number] 01/10/18 11:20 MW Document 01/17/18 12:08 MW [id number] 01/17/18 12:13 MW Document 01/24/18 10:32 MW [id number] 01/24/18 10:37 MW 01/03/18 01/10/18 01/17/18 09:51 11:16 12:08 Wound Center Nurse 2 #5 right medial le -Time 11:40 -Correct Patient Yes -Correct Side, Site, Position Yes -Correct Procedure Yes -Procedure Performed Yes -Type of Procedure Debridement -Clinical Debridement Subcutaneous -Post Debridement Size (cm) - Length 0.8 -Post Debridement Size (cm) - Width 4.0 -Post Debridement Size (cm) - Depth 0.1 -Total Square Cm 3.20 -Wound/Ulcer Outcome Not Healed -Ulcer Cleansing Rinsed/ Irrigated with Saline -Foul Odor after Cleansing No -Bioengineered Tissue No -Bleeding Controlled with Pressure -Treatment Response Procedure Tolerated Well #3 RIGHT LOWER ERVIN -Time 09:51 11:17 -Correct Patient Yes Yes -Correct Side, Site, Position Yes Yes -Correct Procedure Yes Yes -Procedure Performed Yes No -Type of Procedure Debridement -Clinical Debridement Selective -Post Debridement Size (cm) - Length 0.6 0.1 -Post Debridement Size (cm) - Width 0.2 0.1 -Post Debridement Size (cm) - Depth 0.1 0.1 -Total Square Cm 0.12 0.01 -Wound/Ulcer Outcome Not Healed Not Healed -Ulcer Cleansing Rinsed/ Not Cleansed Irrigated with Saline -Foul Odor after Cleansing No No -Bioengineered Tissue No No -Bleeding Controlled with Pressure NA -Treatment Response Procedure Procedure Tolerated Well Tolerated Well Pain Scale: 0-10 Numeric Is Patient Pain Free? Yes Yes Yes 01/24/18 10:32 Wound Center Nurse 2 #5 right medial le -Time 10:32 -Correct Patient Yes -Correct Side, Site, Position Yes -Correct Procedure Yes -Procedure Performed Yes -Type of Procedure Debridement -Clinical Debridement Subcutaneous -Post Debridement Size (cm) - Length 0.3 -Post Debridement Size (cm) - Width 1.0 -Post Debridement Size (cm) - Depth 0.1 -Total Square Cm 0.30 -Wound/Ulcer Outcome Not Healed -Ulcer Cleansing Rinsed/ Irrigated with Saline -Foul Odor after Cleansing No -Bioengineered Tissue No -Bleeding Controlled with Pressure -Treatment Response Procedure Tolerated Well #3 RIGHT LOWER ERVIN -Time -Correct Patient -Correct Side, Site, Position -Correct Procedure -Procedure Performed -Type of Procedure -Clinical Debridement -Post Debridement Size (cm) - Length -Post Debridement Size (cm) - Width -Post Debridement Size (cm) - Depth -Total Square Cm -Wound/Ulcer Outcome -Ulcer Cleansing -Foul Odor after Cleansing -Bioengineered Tissue -Bleeding Controlled with -Treatment Response Pain Scale: 0-10 Numeric Is Patient Pain Free? 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 Right ervin ulcer with fat layer exposed. Chronic lymphedema. Resolving Cellulitis. Plan: healed. Periwound dermatitis also improved. Continue Tomas wraps for edema management and Xeroform to periwound erythema. Also continue use of lymphedema pumps. Elevate lower extremities when seated and in bed. Continue Claritin daily to help with allergic reaction. Aquaphor healing ointment recommended. Discharge fom the wound center. She was advised to call with any question or concerns. This note was generated with [employer] software. It may contain incorrect words, spelling, and punctuation that were not noted in checking the note before signing.
== END 2018-01-31 23:59 ==
LOC: WC 09:15
PROVIDERS: Family Provider Family Medicine; PCP Family Medicine; Visit Provider Internal Medicine
DX: I87.2 Venous insufficiency (chronic) (peripheral) (principal); L97.112 Non-pressure chronic ulcer of right thigh with fat layer exposed; I89.0 Lymphedema, not elsewhere classified; E66.01 Morbid (severe) obesity due to excess calories; Z68.43 Body mass index [BMI] 50.0-59.9, adult; Z71.3 Dietary counseling and surveillance
CPT/HCPCS: 11042; 29581; 97597; 99213; 99214; G0463

== ENCOUNTER 2020-01-31 08:00 | Outpatient (RCR) | payer MEDICAID, SELFPAY ==
[2020-01-03 08:12] VITALS: RESP 22; TEMP 35.9; BMI 49.0
--- NOTE | 2020-01-03 08:38 | PCM.WC.HP ---
(1) Venous ulcer of right leg Status: Acute Current Visit: Yes Code(s): I83.019 - Varicose veins of right lower extremity with ulcer of unspecified site; L97.919 - Non-pressure chronic ulcer of unspecified part of right lower leg with unspecified severity (2) Venous ulcer of left leg Status: Acute Current Visit: Yes Code(s): I83.029 - Varicose veins of left lower extremity with ulcer of unspecified site; L97.929 - Non-pressure chronic ulcer of unspecified part of left lower leg with unspecified severity (3) Cellulitis of right lower extremity Status: Acute Current Visit: Yes Code(s): L03.115 - Cellulitis of right lower limb (4) Lymphedema Status: Chronic Current Visit: Yes Code(s): I89.0 - Lymphedema, not elsewhere classified (5) Venous insufficiency Status: Chronic Current Visit: Yes (6) Morbid obesity Status: Chronic Current Visit: No Code(s): E66.01 - Morbid (severe) obesity due to excess calories History of Present Illness Date of Service: 01/03/20 Chief Complaint: ulcers of both legs History of Wound: Toña Seth [facility] for evaluation and treatment of bilateral lower leg ulcers. The patient is [facility] treatment of prior lower extremity ulcers. She has a PMH significant for chronic lymphedema, venous insufficiency, atrial fibrillation (on Eliquis), morbid obesity, hypothyroidism. She reports development of her posterior right lower leg ulcer in April. She initially was using Manuka honey to this ulcer, but recently started using Vaseline instead. She reports her anterior right lower extremity ulcer developed in August, and she has been applying Vaseline to this daily. Her anterior left lower extremity ulcer developed approximately 1 week ago, and she has been applying Vaseline to this daily as well. She notes that approximately 4 to 6 weeks ago the ulcer on her posterior right lower leg began increasing and soreness. She has lymphedema pumps at home, but has not been using these due to reported pain with use which is related to her ulcers. She does not use compression at home. She reports frequent dangling of her legs while seated at her computer for work. She does not frequently elevate her feet when seated. The patient denies any fever, chills, nausea, vomiting, or diarrhea. Denies any increasing pain, redness, or swelling of the affected area. She does note foul-smelling drainage from her right lower extremity. She has not been on any antibiotics recently. She reports having lab work done approximately 6 weeks ago; these records will be requested for review. She reports no change in symptoms since lab work was completed. She had lower extremity arterial studies completed 05/16/16 which showed relatively normal arterial perfusion to ankle level bilaterally. Triphasic waveforms were noted at ankle level bilaterally. Resting ankle-brachial indices were bilaterally. normal. The right digital-brachial index is normal, consistent with normal arterial perfusion at distal, small-vessel level in the right lower extremity. The left digital-brachial index is mildly diminished, suggesting the presence of mild, distal, small-vessel arterial occlusive disease in the left lower extremity. 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) Tinea unguium (Chronic) Venous insufficiency (Chronic) Morbid obesity (Chronic) Venous ulcer of leg (Chronic) right leg Ulcer of right lower extremity with fat layer exposed (Chronic) Lymphedema (Chronic) Right leg pain (Chronic) Malnutrition (Chronic) Surgical History: noncontributory, hysterectomy, - - D & C Allergies/Adverse Reactions: Allergies adhesive tape Allergy (Unknown, Verified 01/03/20 08:46) Unknown Home Medications: Ambulatory Orders Medication Instructions Recorded Carvedilol [Coreg] 25 mg PO BID 10/15/14 Losartan Potassium [Cozaar] 25 mg PO DAILY 10/15/14 Multivit-Min/Iron/Folic/Lutein 1 ea PO DAILY 05/11/16 [Centrum Silver Women Tablet] apixaban 5 mg tablet 5 mg PO BID 01/11/18 bupropion HCl 150 mg 24 hr tablet, 300 mg PO QAM tab 01/11/18 extended release levothyroxine 175 mcg tablet 175 mcg PO .COMPLEX #48 tab 01/11/18 - Family History Maternal Family History: Family History (Last Reviewed 01/11/18 @ 08:28 by Adeline Andres) Mother Colon cancer Father Melanoma - - family history includes cancer, hyperlipidemia, hypertension, polio Smoking Status: Never smoker Review of Systems Constitutional: Denies: Anorexia, Chills, Fever, Night Sweats, Malaise, Weakness Eyes: Denies: Pain, Vision Change HEENT: Denies: Difficulty Hearing, Difficulty Swallowing, Sinus Congestion Cardiovascular: Reports: Edema - chronic BLE lymphedema, Palpitations - afib. Denies: Chest Pain Respiratory: Denies: Cough, Shortness of Breath Gastrointestinal: Denies: Diarrhea, Nausea, Vomiting Genitourinary: Denies: Dysuria, Hematuria Musculoskeletal: Reports: Leg Pain - r/t ulcers Skin: Reports: Wounds - bilateral lower leg ulcers Neurological: Denies: Focal weakness Endocrine: Denies: Heat/ Cold Intolerance, Polydipsia, Polyuria Hematologic/ Lymphatic: Reports: Easy Bruising - on Eliquis, Easy Bleeding - on Eliquis - Physical Exam General: Alert, Oriented x3, Cooperative, No apparent distress HEENT: Atraumatic, Normocephalic Oral: Moist Mucosa Neck: Supple, Trachea Midline Lungs: Clear to auscultation, Normal air movement, No rhonchi, No wheeze, No rales Cardiovascular: Irregular Rate - irregularly irregular Abdomen: Bowel Sounds Present, Soft, Non Tender, Obese Extremities: No clubbing, No cyanosis, Capillary Refill Less than 3 Seconds, Edema - 2+ pitting edema of BL feet and ankles; chronic lymphedema of BLE, Peripheral Pulses Normal Skin: Ulcer/ Wound - 1. Large venous ulcer to right posterior lower leg with copious amounts of slough and devitalized tissue. Fat layer is exposed, no tunneling, undermining, or probing to bone. No purulent drainage, however ulcer is foul-smelling. There is moderate ronak-ulcer erythema. The ulcer and ronak-ulcer area are currently warm with tenderness to palpation/manipulation. 2. Large venous ulcer of right anterior lower leg with subcutaneous layer exposed, no tunneling, undermining, or probing to bone. There is a large amount of slough and devitalized tissue present. There is moderate ronak-ulcer warmth, erythema and tenderness to palpation. There is no purulent or foul-smelling drainage. 3. Small venous ulcer of anterior left lower leg with subcutaneous layer exposed, no tunneling, undermining, or probing to bone. There is a small amount of slough and devitalized tissue present. There is no ronak-ulcer erythema, warmth, or purulent/foul-smelling drainage. Musculoskeletal: Tenderness - Palpation/manipulation of ulcers of bilateral lower extremities Neurological: Neuro grossly intact Psych/Mental Status: Normal Affect, Appropriate Debridement Note Wound debrided: Right posterior lower leg Laterality: Right Anesthesia Used: 4% Lidocaine Solution Depth: in the subcutaneous layer Percentage of wound debrided: 100 Instrument Used: 7mm curette Tissue Removed: Slough and devitalized tissue Severity: Fat Layer Exposed Amount of bleeding with debridement: Mild Bleeding Controlled with: Pressure Patient tolerated procedure well - Additional Wound Wound debrided: Right anterior lower leg Laterality: Right Type of Debridement: Excisional debridement Anesthesia Used: 4% Lidocaine Solution Depth: in the subcutaneous layer Percentage of wound debrided: 100 Instrument Used: 7mm curette Tissue Removed: Slough and devitalized tissue Severity: Fat Layer Exposed Amount of bleeding with debridement: Mild Bleeding Controlled with: Pressure Patient tolerated procedure: Patient tolerated procedure well - Additional Wound Wound debrided: Left anterior lower leg Laterality: Left Type of Debridement: Excisional debridement Anesthesia Used: 4% Lidocaine Solution Depth: in the subcutaneous layer Percentage of wound debrided: 100 Instrument Used: 5mm curette Tissue Removed: Slough and devitalized tissue Severity: Fat Layer Exposed Amount of bleeding with debridement: Mild Bleeding Controlled with: Pressure Patient tolerated procedure: Patient tolerated procedure well Assessment/Plan Active Problems (Last Updated 01/11/18 @ 08:41 by Adeline Andres) Venous ulcer of left leg (Acute) Venous ulcer of right leg (Acute) Cellulitis of right lower extremity (Acute) Venous insufficiency (Chronic) Lymphedema (Chronic) Assessment: Right posterior lower leg ulcer. Right anterior lower leg ulcer. Left anterior lower leg ulcer. Cellulitis of right lower extremity. Chronic lymphedema Plan: Debridement performed today in clinic. Medihoney applied to the right posterior lower leg ulcer due to large amount of biofilm. Aquacel Ag applied to right and left anterior lower leg ulcers, covered with Adaptic. Dressings were covered with Kerlix to prevent further irritation/injury of skin from use of tape. Given the duration of the venous ulcers and failure of the ulcers to respond to standard wound care, we will apply for advanced skin substitutes. At home wound-care instructions: Perform wound care daily with meta honey to right posterior lower leg ulcer and Aquacel Ag + Adaptic and Kerlix to anterior lower leg ulcers (right and left). Cleanse the wound areas daily with soap and water, rinsing and drying thoroughly. Avoid soaking or submersion of wounds. Compression: Tomas wraps applied today in clinic. Patient was advised to use Tomas wraps and daily for compression. She is also encouraged to use her lymphedema pumps to help reduce swelling of her bilateral lower extremities. Off-loading: Patient was advised to avoid pressure on her ulcer sites. She is to keep feet elevated at or above waist level when seated. She is to avoid prolonged standing or dangling of legs. Diet: Patient encouraged to increase protein and vitamin C intake while taking caution to avoid high carbohydrate and/or sugar intake. Labs/cultures/imaging: Cultures ordered and collected today from right anterior lower leg ulcer and right posterior lower leg ulcer. Augmentin 875/125 mg 1 tablet p.o. twice daily x10 days is prescribed for empiric treatment of cellulitis of right lower extremity. Lab work from [facility] is requested for review. Vascular studies from 2017 were reviewed. Follow-up: Return to clinic in 1 week for re-evaluation. Return sooner or report to the emergency room should symptoms worsen, or new symptoms arise. Note: Imperator speech recognition python web developer software was used to create portions of this document. Sound-alike and misspelled words, as well as other python web developer errors may be contained in the documentation. Office Visits / Consults: [id number] OV L4 Est [id number]: [id number] Shante subq tissue 20 sq cm/<
[2020-01-17 08:07] VITALS: BP 157/85; PULSE 66; RESP 22; TEMP 36.2; BMI 49.0
[2020-01-17 09:38] VITALS: BP 158/90; PULSE 68
--- NOTE | 2020-01-17 12:26 | PCM.WC.PN ---
(1) Venous ulcer of left leg Status: Chronic Code(s): I83.029 - Varicose veins of left lower extremity with ulcer of unspecified site; L97.929 - Non-pressure chronic ulcer of unspecified part of left lower leg with unspecified severity (2) Venous ulcer of right leg Status: Chronic Code(s): I83.019 - Varicose veins of right lower extremity with ulcer of unspecified site; L97.919 - Non-pressure chronic ulcer of unspecified part of right lower leg with unspecified severity (3) Delayed wound healing Status: Chronic Code(s): T14.8 - Other injury of unspecified body region (4) Venous insufficiency Status: Chronic (5) Morbid obesity Status: Chronic Code(s): E66.01 - Morbid (severe) obesity due to excess calories (6) Ulcer of right lower extremity with fat layer exposed Status: Chronic Code(s): L97.912 - Non-pressure chronic ulcer of unspecified part of right lower leg with fat layer exposed (7) Lymphedema Status: Chronic Code(s): I89.0 - Lymphedema, not elsewhere classified Type of Wound Date of Service: 01/17/20 Chief Complaint: ulcers of both legs History of Wound: [facility] for evaluation and treatment of bilateral lower leg ulcers. The patient is [facility] treatment of prior lower extremity ulcers. She has a PMH significant for chronic lymphedema, venous insufficiency, atrial fibrillation (on Eliquis), morbid obesity, hypothyroidism. She reports development of her posterior right lower leg ulcer in April. She initially was using Manuka honey to this ulcer, but recently started using Vaseline instead. She reports her anterior right lower extremity ulcer developed in August, and she has been applying Vaseline to this daily. Her anterior left lower extremity ulcer developed approximately 1 week ago, and she has been applying Vaseline to this daily as well. She notes that approximately 4 to 6 weeks ago the ulcer on her posterior right lower leg began increasing and soreness. She has lymphedema pumps at home, but has not been using these due to reported pain with use which is related to her ulcers. She does not use compression at home. She reports frequent dangling of her legs while seated at her computer for work. She does not frequently elevate her feet when seated. The patient denies any fever, chills, nausea, vomiting, or diarrhea. Denies any increasing pain, redness, or swelling of the affected area. She does note foul-smelling drainage from her right lower extremity. She has not been on any antibiotics recently. She reports having lab work done approximately 6 weeks ago; these records will be requested for review. She reports no change in symptoms since lab work was completed. She had lower extremity arterial studies completed 05/16/16 which showed relatively normal arterial perfusion to ankle level bilaterally. Triphasic waveforms were noted at ankle level bilaterally. Resting ankle-brachial indices were bilaterally. normal. The right digital-brachial index is normal, consistent with normal arterial perfusion at distal, small-vessel level in the right lower extremity. The left digital-brachial index is mildly diminished, suggesting the presence of mild, distal, small-vessel arterial occlusive disease in the left lower extremity. Progress of Wound: Toña returns today for follow up of ulcers of her lower extremities bilaterally. She has been tolerating dressings of Medihoney and Adaptic as well as Aquacel to her anterior ulcers bilaterally. She continues to have heavy drainage from her right lower extremity ulcers. Her left lower extremity ulcer is no longer draining and is healed per patient. She admittedly has not been doing well with TOMAS wraps as they do not stay in place or cause her to have pain. She has been trying to elevate her legs more frequently. She denies any fever, chills, odor, or erythema. - Physical Exam Vital Signs Temp Pulse Resp BP 97.1 F L 68 22 H 158/90 H 01/17/20 08:07 01/17/20 09:38 01/17/20 08:07 01/17/20 09:38 General: Alert, Oriented x3, Cooperative, No apparent distress HEENT: Atraumatic, Normocephalic Oral: Moist Mucosa Abdomen: Obese Extremities: Edema Skin: Ulcer/ Wound Wound Measurements and Assessment WC - Nurse 1 - General Ulcer Measurement Start: 01/03/20 08:04 Freq: Status: Active Protocol: Activity Type Activity Date Activity User E-Sign Co-Sign Detail Recorded Client Recorded Date Recorded By Document 01/17/20 08:07 DL [id number] 01/17/20 08:19 DL 01/17/20 08:07 Wound Center Nurse 1 [Ulcer Assessment] #9 LLE Lower Ervin -Current Size (cm) - Length 0.1 -Current Size (cm) - Width 0.1 -Current Size (cm) - Depth 0.1 -Total Square Cm 0.01 -Photo Taken No -Exudate Amt None Present -Wound Margin Flat & Intact -Granulation Amt Small (1-33%) -Granulation Quality [place] -Necrosis Amt None Present (0 %) -Structure Exposed N/A -Texture (Irene-wound Skin Appearance) Scarring -Moisture (Irene-wound Skin Appearance Dry/Scaly ) -Color (Irene-wound Skin Appearance) Hemosiderin Staining -Temperature (Irene-wound Skin No Abnormality Appearance) (Pt Warm) -Tenderness on Palpation (Irene-wound No Skin Appearance) -Ulcer Cleansing Wound Cleanser -Foul Odor after Cleansing No -Anesthetic Used 4% Lidocaine Solution #8 RLE Post -Current Size (cm) - Length 8.8 -Current Size (cm) - Width 8.1 -Current Size (cm) - Depth 1 -Total Square Cm 71.28 -Photo Taken No -Exudate Amt Medium -Exudate Type Serosanguineous -Wound Margin Distinct, Outline Attached -Granulation Amt Small (1-33%) -Granulation Quality Red -Necrosis Amt Large (67-100%) -Necrotic Tissue Type Adherent Slough -Structure Exposed N/A -Texture (Irene-wound Skin Appearance) Scarring -Moisture (Irene-wound Skin Appearance No Abnormality ) -Color (Irene-wound Skin Appearance) Hemosiderin Staining -Temperature (Irene-wound Skin No Abnormality Appearance) (Pt Warm) -Tenderness on Palpation (Irene-wound No Skin Appearance) -Ulcer Cleansing Wound Cleanser -Foul Odor after Cleansing No -Anesthetic Used 4% Lidocaine Solution #7 RLE Ant Cluster -Current Size (cm) - Length 5.1 -Current Size (cm) - Width 6 -Current Size (cm) - Depth 0.2 -Total Square Cm 30.6 -Photo Taken No -Exudate Amt Small -Exudate Type Serosanguineous -Wound Margin Distinct, Outline Attached -Granulation Amt Small (1-33%) -Granulation Quality [place] -Necrosis Amt Large (67-100%) -Necrotic Tissue Type Adherent Slough -Structure Exposed N/A -Texture (Irene-wound Skin Appearance) Scarring -Moisture (Irene-wound Skin Appearance Dry/Scaly ) -Color (Irene-wound Skin Appearance) Hemosiderin Staining -Temperature (Irene-wound Skin No Abnormality Appearance) (Pt Warm) -Tenderness on Palpation (Irene-wound No Skin Appearance) -Ulcer Cleansing Wound Cleanser -Foul Odor after Cleansing No -Anesthetic Used 4% Lidocaine Solution [Edema Assessment] -Right Calf (cm) 74 -Right Ankle (cm) 32.5 WC - Nurse 2 - General Ulcer CM Notes Start: 01/03/20 08:04 Freq: Status: Active Protocol: Activity Type Activity Date Activity User E-Sign Co-Sign Detail Recorded Client Recorded Date Recorded By Document 01/17/20 08:30 MW [id number] 01/17/20 09:08 MW 01/17/20 08:30 Wound Center Nurse 2 [Procedure/Treatment] #9 LLE Lower Ervin -Time 08:32 -Correct Patient Yes -Correct Side, Site, Position Yes -Correct Procedure Yes -Procedure Performed No -Post Debridement (cm) - Length 0 -Post Debridement (cm) - Width 0 -Post Debridement (cm) - Depth 0 -Total Square (Post) (cm) 0 -Wound/Ulcer Outcome Healed- Epithelialized -Ulcer Cleansing Not Cleansed -Treatment Response Procedure Tolerated Well #8 RLE Post -Time 08:32 -Correct Patient Yes -Correct Side, Site, Position Yes -Correct Procedure Yes -Procedure Performed Yes -Type of Procedure Debridement -Clinical Debridement Subcutaneous -Tissue Removed Subcutaneous -Post Debridement (cm) - Length 8.0 -Post Debridement (cm) - Width 8.0 -Post Debridement (cm) - Depth 0.3 -Total Square (Post) (cm) 64.00 -Area of Debridement (cm) - Length 8.0 -Area of Debridement (cm) - Width 8.0 -Total Square (Area) (cm) 64.00 -Tunneling No -Undermining/Tunneling No -Circular Undermining No -Wound/Ulcer Outcome Not Healed -Ulcer Cleansing Rinsed/ Irrigated with Saline -Foul Odor after Cleansing No -Bioengineered Tissue Yes -Type of Bioengineered Tissue PuraPly AM -Expiration Date 08/30/20 -Product Lot Number [id number] -Percent Used 100 -Saline Lot Number [id number] -Bleeding Controlled with Pressure -Offloading No -Treatment Response Procedure Tolerated Well -Debridement - Subq, 1st 20sq cm No -Apply Skin Sub - 1st 100 sq cm - 1 Legs -Apply Skin Sub - each addt'l 100 sq 1 cm - Legs -PuraPly AM (per sq cm) 128 #7 RLE Ant Cluster -Time 08:33 -Correct Patient Yes -Correct Side, Site, Position Yes -Correct Procedure Yes -Procedure Performed Yes -Type of Procedure Debridement -Clinical Debridement Subcutaneous -Tissue Removed Subcutaneous -Post Debridement (cm) - Length 6.0 -Post Debridement (cm) - Width 5.4 -Post Debridement (cm) - Depth 0.1 -Total Square (Post) (cm) 32.40 -Area of Debridement (cm) - Length 6.0 -Area of Debridement (cm) - Width 5.4 -Total Square (Area) (cm) 32.40 -Tunneling No -Undermining/Tunneling No -Circular Undermining No -Wound/Ulcer Outcome Not Healed -Ulcer Cleansing Rinsed/ Irrigated with Saline -Foul Odor after Cleansing No -Bioengineered Tissue No -Bleeding Controlled with Pressure -Offloading No -Treatment Response Procedure Tolerated Well -Debridement - Subq, 1st 20sq cm Yes -Debridement, SubQ, ea addt'l 20sq cm 1 or part thereof [See Physician Procedure note for Specifics] Pain Scale: 0-10 Numeric [Pain] -Is Patient Pain Free? Yes WC - Nurse 3 - General Ulcer D/C NN Start: 01/03/20 08:04 Freq: Status: Active Protocol: Activity Type Activity Date Activity User E-Sign Co-Sign Detail Recorded Client Recorded Date Recorded By Document 01/17/20 09:38 DL [id number] 01/17/20 09:40 DL 01/17/20 09:38 Wound Care Nurse 3 [Wound Dressing] #8 RLE Post -Foul Odor after Cleansing No -Other Dressing Puraply -Primary Dressing Covered/Secured Dry Gauze & with Roll Gauze, Secured with Tape #7 RLE Ant Cluster -Foul Odor after Cleansing No -Other Dressing Puraply -Primary Dressing Covered/Secured Dry Gauze & with Roll Gauze, Secured with Tape Vital Signs [Pulse] -Pulse Rate (60-100) 68 -Pulse Location Monitor [Blood Pressure] -Blood Pressure (90/60-120/80) 158/90 H -Blood Pressure Mean (mm Hg) 112 -Source Monitor Pain Scale: 0-10 Numeric [Pain] -Is Patient Pain Free? Yes WC - Visit Discharge [Visit Discharge Information] -Discharge Condition Stable -Ambulatory Status Ambulatory -Transportation Private Auto Psych/Mental Status: Normal Affect, Appropriate Debridement Note Post-Debridement Measurements/Treatment - Nurse 2 - General Ulcer CM Notes Start: 01/03/20 08:04 Freq: Status: Active Protocol: Activity Type Activity Date Activity User E-Sign Co-Sign Detail Recorded Client Recorded Date Recorded By Document 01/03/20 13:37 PL [id number] 01/03/20 13:41 PL Document 01/17/20 08:30 MW [id number] 01/17/20 09:08 MW 01/03/20 01/17/20 13:37 08:30 Wound Center Nurse 2 #9 LLE Lower [place] -Time 09:14 08:32 -Correct Patient Yes Yes -Correct Side, Site, Position Yes Yes -Correct Procedure Yes Yes -Procedure Performed Yes No -Type of Procedure Debridement -Clinical Debridement Subcutaneous -Tissue Removed Subcutaneous -Post Debridement (cm) - Length 0.9 0 -Post Debridement (cm) - Width 0.8 0 -Post Debridement (cm) - Depth 0.1 0 -Total Square (Post) (cm) 0.72 0 -Area of Debridement (cm) - Length 0.9 -Area of Debridement (cm) - Width 0.8 -Total Square (Area) (cm) 0.72 -Tunneling No -Undermining/Tunneling No -Circular Undermining No -Wound/Ulcer Outcome Not Healed Healed- Epithelialized -Ulcer Cleansing Rinsed/ Not Cleansed Irrigated with Saline -Foul Odor after Cleansing No -Bioengineered Tissue No -Treatment Response Procedure Tolerated Well -Debridement - Subq, 1st 20sq cm No #8 RLE Post -Time 09:18 08:32 -Correct Patient Yes Yes -Correct Side, Site, Position Yes Yes -Correct Procedure Yes Yes -Procedure Performed Yes Yes -Type of Procedure Debridement Debridement -Clinical Debridement Subcutaneous Subcutaneous -Tissue Removed Subcutaneous Subcutaneous -Post Debridement (cm) - Length 8.6 8.0 -Post Debridement (cm) - Width 8.2 8.0 -Post Debridement (cm) - Depth 1.0 0.3 -Total Square (Post) (cm) 70.52 64.00 -Area of Debridement (cm) - Length 8.6 8.0 -Area of Debridement (cm) - Width 8.2 8.0 -Total Square (Area) (cm) 70.52 64.00 -Tunneling No No -Undermining/Tunneling No No -Circular Undermining No No -Wound/Ulcer Outcome Not Healed Not Healed -Ulcer Cleansing Rinsed/ Rinsed/ Irrigated with Irrigated with Saline Saline -Foul Odor after Cleansing No No -Bioengineered Tissue No Yes -Type of Bioengineered Tissue PuraPly AM -Expiration Date 08/30/20 -Product Lot Number [id number] -Percent Used 100 -Saline Lot Number [id number] -Bleeding Controlled with Pressure -Offloading No -Treatment Response Procedure Tolerated Well -Debridement - Subq, 1st 20sq cm Yes No -Debridement, SubQ, ea addt'l 20sq cm 3 or part thereof -Apply Skin Sub - 1st 100 sq cm - Legs 1 -Apply Skin Sub - each addt'l 100 sq 1 cm - Legs -PuraPly AM (per sq cm) 128 #7 RLE Ant Cluster -Time 09:14 08:33 -Correct Patient Yes Yes -Correct Side, Site, Position Yes Yes -Correct Procedure Yes Yes -Procedure Performed Yes Yes -Type of Procedure Debridement Debridement -Clinical Debridement Subcutaneous Subcutaneous -Tissue Removed Subcutaneous Subcutaneous -Post Debridement (cm) - Length 4.5 6.0 -Post Debridement (cm) - Width 7.5 5.4 -Post Debridement (cm) - Depth 0.2 0.1 -Total Square (Post) (cm) 33.75 32.40 -Area of Debridement (cm) - Length 4.5 6.0 -Area of Debridement (cm) - Width 7.5 5.4 -Total Square (Area) (cm) 33.75 32.40 -Tunneling No -Undermining/Tunneling No -Circular Undermining No -Wound/Ulcer Outcome Not Healed -Ulcer Cleansing Rinsed/ Rinsed/ Irrigated with Irrigated with Saline Saline -Foul Odor after Cleansing No No -Bioengineered Tissue No No -Bleeding Controlled with Pressure -Offloading No -Treatment Response Procedure Tolerated Well -Debridement - Subq, 1st 20sq cm No Yes -Debridement, SubQ, ea addt'l 20sq cm 2 1 or part thereof Pain Scale: 0-10 Numeric Is Patient Pain Free? Yes Yes - Nurse 3 - General Ulcer D/C NN Start: 01/03/20 08:04 Freq: Status: Active Protocol: Activity Type Activity Date Activity User E-Sign Co-Sign Detail Recorded Client Recorded Date Recorded By Document 01/03/20 10:14 [facility] [id number] 01/03/20 10:20 [facility] Document 01/17/20 09:38 DL [id number] 01/17/20 09:40 DL 01/03/20 01/17/20 10:14 09:38 Wound Care Nurse 3 #9 LLE Lower Ervin -Ulcer Cleansing Rinsed/ Irrigated with Saline -Foul Odor after Cleansing No -Primary Dressing Applied Aquacel Extra, NonAdherent Contact Layer -Primary Dressing Covered/Secured with Dry Gauze & Roll Gauze, Secured with Tape,Other -Other Covering abd -Aquacel Extra 2 #8 RLE Post -Ulcer Cleansing Rinsed/ Irrigated with Saline -Foul Odor after Cleansing No No -Primary Dressing Applied Other -Other Dressing medihoney Puraply -Primary Dressing Covered/Secured with Dry Gauze & Dry Gauze & Roll Gauze, Roll Gauze, Secured with Secured with Tape,Other Tape -Other Covering abd #7 RLE Ant Cluster -Ulcer Cleansing Rinsed/ Irrigated with Saline -Foul Odor after Cleansing No No -Primary Dressing Applied Aquacel AG 4x4, NonAdherent Contact Layer -Other Dressing Puraply -Primary Dressing Covered/Secured with Dry Gauze & Dry Gauze & Roll Gauze, Roll Gauze, Secured with Secured with Tape,Other Tape -Other Covering abd -Aquacel AG 4x4 0 Right -Compression Wrap Tomas Wrap Left -Compression Wrap Tomas Wrap Treatment Response Procedure Tolerated Well Vital Signs Pulse Rate (60-100) 68 Pulse Location Monitor Blood Pressure (90/60-120/80) 158/90 H Blood Pressure Mean (mm Hg) 112 Source Monitor Pain Scale: 0-10 Numeric Is Patient Pain Free? Yes Yes - Visit Discharge Discharge Condition Stable Stable Ambulatory Status Ambulatory Ambulatory Transportation Private Auto Private Auto Wound debrided: left lower ervin Laterality: Left No debridement was completed today - ulcer is healed - Additional Wound Wound debrided: right anterior lower extremity cluster Laterality: Right Type of Debridement: Excisional debridement Anesthesia Used: 4% Lidocaine Solution Depth: Down to and including healthy tissue, in the subcutaneous layer Percentage of wound debrided: 100 Instrument Used: 5mm curette Tissue Removed: Yellow slough, devitalized tissue Severity: Fat Layer Exposed Amount of bleeding with debridement: Mild Bleeding Controlled with: Compression and gauze Patient tolerated procedure: Patient tolerated procedure well - Additional Wound Wound debrided: right posterior LE ulcer Laterality: Right Type of Debridement: Excisional debridement Anesthesia Used: 4% Lidocaine Solution Depth: Down to and including healthy tissue, in the subcutaneous layer Percentage of wound debrided: 100 Instrument Used: 5mm curette Tissue Removed: Yellow slough, devitalized tissue Severity: Fat Layer Exposed Amount of bleeding with debridement: Mild Bleeding Controlled with: Compression and gauze Patient tolerated procedure: Patient tolerated procedure well Assessment/Plan Active Problems (Last Updated 01/11/18 @ 08:41 by Adeline Andres) Venous ulcer of left leg (Chronic) Venous ulcer of right leg (Chronic) Cellulitis of right lower extremity (Acute) Assessment: Right posterior lower leg ulcer. Right anterior lower leg ulcer. Left anterior lower leg ulcer - healed. Cellulitis of right lower extremity - resolved. Chronic lymphedema Plan: Debridement performed today in clinic as above. She was approved for Puraply and Nu-shield and Apligraf. Her ulcers have significant amount of slough and bioburden which was debrided as much as possible. Purapply application #1 was performed to her right posterior lower extremity ulcer per safety spec guidelines and covered with wound veil and secured with steri-strips. 100% of the product was used to the ulcers of her right lower extremity layering the product in the bed of the ulcers. Patient tolerated application well. Will use ABD pads changed daily as a secondary dressing for heavy drainage. Given the duration of the venous ulcers and failure of the ulcers to respond to standard wound care, we have applied and been approved for advanced skin substitutes. At home wound-care instructions: Keep dressings dry and intact. Do not get wet or soak right leg. Change ABD as outer dressing daily and as needed for heavy drainage. Compression: She is also encouraged to use her lymphedema pumps to help reduce swelling of her bilateral lower extremities and to elevate her legs frequently throughout the day. Off-loading: Patient was advised to avoid pressure on her ulcer sites. She is to keep feet elevated at or above waist level when seated. She is to avoid prolonged standing or dangling of legs. Diet: Patient encouraged to increase protein and vitamin C intake while taking caution to avoid high carbohydrate and/or sugar intake. Labs/cultures/imaging: Lab work from [facility] is requested for review. Vascular studies from 2017 were reviewed. Follow-up: Return to clinic in 1 week for re-evaluation. Return sooner or report to the emergency room should symptoms worsen, or new symptoms arise. Note: [employer] speech recognition ladies suit operator software was used to create portions of this document. Sound-alike and misspelled words, as well as other ladies suit operator errors may be contained in the documentation.
[2020-01-24 07:59] VITALS: BP 158/92; PULSE 74; RESP 17; TEMP 35.6; BMI 49.0
--- NOTE | 2020-01-24 08:51 | PN.PCM_ITS ---
(1) Venous ulcer of right leg Status: Chronic Code(s): I83.019 - Varicose veins of right lower extremity with ulcer of unspecified site; L97.919 - Non-pressure chronic ulcer of unspecified part of right lower leg with unspecified severity (2) Venous ulcer of left leg Status: Chronic Code(s): I83.029 - Varicose veins of left lower extremity with ulcer of unspecified site; L97.929 - Non-pressure chronic ulcer of unspecified part of left lower leg with unspecified severity (3) Cellulitis of right lower extremity Status: Acute Code(s): L03.115 - Cellulitis of right lower limb (4) Lymphedema Status: Chronic Code(s): I89.0 - Lymphedema, not elsewhere classified (5) Venous insufficiency Status: Chronic (6) Morbid obesity Status: Chronic Code(s): E66.01 - Morbid (severe) obesity due to excess calories Type of Wound Date of Service: 01/24/20 Chief Complaint: ulcers of both legs History of Wound: [facility] for evaluation and treatment of bilateral lower leg ulcers. The patient is [facility] treatment of prior lower e xtremity ulcers. She has a PMH significant for chronic lymphedema, venous insufficiency, atrial fibrillation (on Eliquis), morbid obesity, hypothyroidism. She reports development of her posterior right lower leg ulcer in April. She initially was using Manuka honey to this ulcer, but recently started using Vaseline instead. She reports her anterior right lower extremity ulcer developed in August, and she has been applying Vaseline to this daily. Her anterior left lower extremity ulcer developed approximately 1 week ago, and she has been applying Vaseline to this daily as well. She notes that approximately 4 to 6 weeks ago the ulcer on her posterior right lower leg began increasing and soreness. She has lymphedema pumps at home, but has not been using these due to reported pain with use which is related to her ulcers. She does not use compression at home. She reports frequent dangling of her legs while seated at her computer for work. She does not frequently elevate her feet when seated. The patient denies any fever, chills, nausea, vomiting, or diarrhea. Denies any increasing pain, redness, or swelling of the affected area. She does note foul- smelling drainage from her right lower extremity. She has not been on any antibiotics recently. She reports having lab work done approximately 6 weeks ago; these records will be requested for review. She reports no change in sy mptoms since lab work was completed. She had lower extremity arterial studies completed 05/16/16 which showed relatively normal arterial perfusion to ankle level bilaterally. Triphasic waveforms were noted at ankle level bilaterally. Resting ankle-brachial indices were bilaterally. normal. The right digital- brachial index is normal, consistent with normal arterial perfusion at distal, small-vessel level in the right lower extremity. The left digital-brachial index is mildly diminished, suggesting the presence of mild, distal, small- vessel arterial occlusive disease in the left lower extremity. Wound cultures collected on 01/03/2020 were positive for 3+ Aeromonas hydrophilia/caviae, 2+ Citrobacter braakii, 1+ Proteus mirabilis, rare Staphylococus aureus, anaerobic cocci, actinomyces odontolyticus, Bacteroides fragilis; beta-lactamase positive. She was started on Levaquin and Augmentin. Progress of Wound: Toña returns today for follow up of ulcers of her right lower extremity. She has been tolerating Puraply dressings to her right lower extremity ulcers well, although the right posterior leg dressing only remained in place for approximately 3 days. She continues to have heavy drainage from her right lower extremity ulcers. Her left lower extremity ulcer is healed per patient. She admittedly has not been doing well with TOMAS wraps as they do not stay in place and cause her to have pain. She has been trying to elevate her legs more frequently. She reports she has still been unable to resume use of her lymphedema pumps due to pain related to her ulcers. She has completed a course of Levaquin. She still has 10 more days of Augmentin to complete, and reports tolerating the antibiotics well. She has been trying to increase her protein intake. The patient denies any fever, chills, nausea, vomiting, or diarrhea. Denies any increasing pain, redness, swelling, or purulent/malodorous drainage from affected area. - Physical Exam Vital Signs Temp Pulse Resp BP 96.1 F L 74 17 158/92 H 01/24/20 07:59 01/24/20 07:59 01/24/20 07:59 01/24/20 07:59 General: Alert, Cooperative, No apparent distress HEENT: Atraumatic, Normocephalic Oral: Moist Mucosa Neck: Supple, Trachea Midline Lungs: Normal air movement Cardiovascular: Regular rate Abdomen: Obese Extremities: No clubbing, No cyanosis, Capillary Refill Less than 3 Seconds, Edema - 2+ pitting edema of bilateral feet and ankles, Peripheral Pulses Normal Skin: Ulcer/ Wound - 1. Venous ulcer posterior RLE w/ fat layer exposed. 2. Venous ulcer of anterior RLE with fat layer exposed. Both ulcer of RLE are without tunneling, undermining, probing to bone. Malodor has resolved. Ulcer and periulcer warmth have resolved. Large amount of slough devitalized tissue present Wound Measurements and Assessment WC - Nurse 1 - General Ulcer Measurement Start: 01/03/20 08:04 Freq: Status: Active Protocol: Activity Type Activity Date Activity User E-Sign Co-Sign Detail Recorded Client Recorded Date Recorded By Document 01/24/20 07:59 MS [id number] 01/24/20 08:17 MS 01/24/20 07:59 Wound Center Nurse 1 [Ulcer Assessment] #8 RLE Post -Current Size (cm) - Length 8.5 -Current Size (cm) - Width 9 -Current Size (cm) - Depth 0.8 -Total Square Cm 76.5 -Epithelialization Medium 34-66% -Classification - Thickness Partial Thickness -Exudate Amt Large -Exudate Type Serosanguineous -Wound Margin Distinct, Outline Attached -Granulation Amt Small (1-33%) -Slough/Fibrin Yes -Texture (Irene-wound Skin Appearance) Assessed -Moisture (Irene-wound Skin Appearance Assessed, ) Weeping -Color (Irene-wound Skin Appearance) Assessed -Temperature (Irene-wound Skin No Abnormality Appearance) (Pt Warm) -Tenderness on Palpation (Irene-wound No Skin Appearance) -Ulcer Cleansing SOAP AND WATER -Foul Odor after Cleansing No -Anesthetic Used 4% Lidocaine Solution #7 RLE Ant Cluster -Current Size (cm) - Length 5 -Current Size (cm) - Width 6.5 -Current Size (cm) - Depth 0.2 -Total Square Cm 32.5 -Epithelialization Small 1-33% -Exudate Amt Large -Exudate Type Serosanguineous -Wound Margin Distinct, Outline Attached -Granulation Amt Small (1-33%) -Granulation Quality Red -Slough/Fibrin Yes -Texture (Irene-wound Skin Appearance) Assessed -Moisture (Irene-wound Skin Appearance Assessed ) -Color (Irene-wound Skin Appearance) Assessed -Tenderness on Palpation (Irene-wound No Skin Appearance) -Ulcer Cleansing SOAP AND WATER -Foul Odor after Cleansing No -Anesthetic Used 4% Lidocaine Solution Musculoskeletal: Tenderness - On palpation/manipulation of right lower extremity ulcers Psych/Mental Status: Normal Affect, Appropriate Debridement Note Post-Debridement Measurements/Treatment WC - Nurse 2 - General Ulcer CM Notes Start: 01/03/20 08:04 Freq: Status: Active Protocol: Activity Type Activity Date Activity User E-Sign Co-Sign Detail Recorded Client Recorded Date Recorded By Document 01/03/20 13:37 PL [id number] 01/03/20 13:41 PL Document 01/17/20 08:30 MW [id number] 01/17/20 09:08 MW 01/03/20 01/17/20 13:37 08:30 Wound Center Nurse 2 #9 LLE [place] -Time 09:14 08:32 -Correct Patient Yes Yes -Correct Side, Site, Position Yes Yes -Correct Procedure Yes Yes -Procedure Performed Yes No -Type of Procedure Debridement -Clinical Debridement Subcutaneous -Tissue Removed Subcutaneous -Post Debridement (cm) - Length 0.9 0 -Post Debridement (cm) - Width 0.8 0 -Post Debridement (cm) - Depth 0.1 0 -Total Square (Post) (cm) 0.72 0 -Area of Debridement (cm) - Length 0.9 -Area of Debridement (cm) - Width 0.8 -Total Square (Area) (cm) 0.72 -Tunneling No -Undermining/Tunneling No -Circular Undermining No -Wound/Ulcer Outcome Not Healed Healed- Epithelialized -Ulcer Cleansing Rinsed/ Not Cleansed Irrigated with Saline -Foul Odor after Cleansing No -Bioengineered Tissue No -Treatment Response Procedure Tolerated Well -Debridement - Subq, 1st 20sq cm No #8 RLE Post -Time 09:18 08:32 -Correct Patient Yes Yes -Correct Side, Site, Position Yes Yes -Correct Procedure Yes Yes -Procedure Performed Yes Yes -Type of Procedure Debridement Debridement -Clinical Debridement Subcutaneous Subcutaneous -Tissue Removed Subcutaneous Subcutaneous -Post Debridement (cm) - Length 8.6 8.0 -Post Debridement (cm) - Width 8.2 8.0 -Post Debridement (cm) - Depth 1.0 0.3 -Total Square (Post) (cm) 70.52 64.00 -Area of Debridement (cm) - Length 8.6 8.0 -Area of Debridement (cm) - Width 8.2 8.0 -Total Square (Area) (cm) 70.52 64.00 -Tunneling No No -Undermining/Tunneling No No -Circular Undermining No No -Wound/Ulcer Outcome Not Healed Not Healed -Ulcer Cleansing Rinsed/ Rinsed/ Irrigated with Irrigated with Saline Saline -Foul Odor after Cleansing No No -Bioengineered Tissue No Yes -Type of Bioengineered Tissue PuraPly AM -Expiration Date 08/30/20 -Product Lot Number [id number] -Percent Used 100 -Saline Lot Number [id number] -Bleeding Controlled with Pressure -Offloading No -Treatment Response Procedure Tolerated Well -Debridement - Subq, 1st 20sq cm Yes No -Debridement, SubQ, ea addt'l 20sq cm 3 or part thereof -Apply Skin Sub - 1st 100 sq cm - Legs 1 -Apply Skin Sub - each addt'l 100 sq 1 cm - Legs -PuraPly AM (per sq cm) 128 #7 RLE Ant Cluster -Time 09:14 08:33 -Correct Patient Yes Yes -Correct Side, Site, Position Yes Yes -Correct Procedure Yes Yes -Procedure Performed Yes Yes -Type of Procedure Debridement Debridement -Clinical Debridement Subcutaneous Subcutaneous -Tissue Removed Subcutaneous Subcutaneous -Post Debridement (cm) - Length 4.5 6.0 -Post Debridement (cm) - Width 7.5 5.4 -Post Debridement (cm) - Depth 0.2 0.1 -Total Square (Post) (cm) 33.75 32.40 -Area of Debridement (cm) - Length 4.5 6.0 -Area of Debridement (cm) - Width 7.5 5.4 -Total Square (Area) (cm) 33.75 32.40 -Tunneling No -Undermining/Tunneling No -Circular Undermining No -Wound/Ulcer Outcome Not Healed -Ulcer Cleansing Rinsed/ Rinsed/ Irrigated with Irrigated with Saline Saline -Foul Odor after Cleansing No No -Bioengineered Tissue No No -Bleeding Controlled with Pressure -Offloading No -Treatment Response Procedure Tolerated Well -Debridement - Subq, 1st 20sq cm No Yes -Debridement, SubQ, ea addt'l 20sq cm 2 1 or part thereof Pain Scale: 0-10 Numeric Is Patient Pain Free? Yes Yes - Nurse 3 - General Ulcer D/C NN Start: 01/03/20 08:04 Freq: Status: Active Protocol: Activity Type Activity Date Activity User E-Sign Co-Sign Detail Recorded Client Recorded Date Recorded By Document 01/03/20 10:14 [facility] [id number] 01/03/20 10:20 BMF Document 01/17/20 09:38 DL [id number] 01/17/20 09:40 DL 01/03/20 01/17/20 10:14 09:38 Wound Care Nurse 3 #9 LLE [place] -Ulcer Cleansing Rinsed/ Irrigated with Saline -Foul Odor after Cleansing No -Primary Dressing Applied Aquacel Extra, NonAdherent Contact Layer -Primary Dressing Covered/Secured with Dry Gauze & Roll Gauze, Secured with Tape,Other -Other Covering abd -Aquacel Extra 2 #8 RLE Post -Ulcer Cleansing Rinsed/ Irrigated with Saline -Foul Odor after Cleansing No No -Primary Dressing Applied Other -Other Dressing medihoney Puraply -Primary Dressing Covered/Secured with Dry Gauze & Dry Gauze & Roll Gauze, Roll Gauze, Secured with Secured with Tape,Other Tape -Other Covering abd #7 RLE Ant Cluster -Ulcer Cleansing Rinsed/ Irrigated with Saline -Foul Odor after Cleansing No No -Primary Dressing Applied Aquacel AG 4x4, NonAdherent Contact Layer -Other Dressing Puraply -Primary Dressing Covered/Secured with Dry Gauze & Dry Gauze & Roll Gauze, Roll Gauze, Secured with Secured with Tape,Other Tape -Other Covering abd -Aquacel AG 4x4 0 Right -Compression Wrap Tomas Wrap Left -Compression Wrap Tomas Wrap Treatment Response Procedure Tolerated Well Vital Signs Pulse Rate (60-100) 68 Pulse Location Monitor Blood Pressure (90/60-120/80) 158/90 H Blood Pressure Mean (mm Hg) 112 Source Monitor Pain Scale: 0-10 Numeric Is Patient Pain Free? Yes Yes - Visit Discharge Discharge Condition Stable Stable Ambulatory Status Ambulatory Ambulatory Transportation Private Auto Private Auto Wound debrided: Posterior lower leg Laterality: Right Anesthesia Used: 4% Lidocaine Solution Depth: in the subcutaneous layer Percentage of wound debrided: 100 Instrument Used: 7mm curette Tissue Removed: Slough and devitalized tissue Severity: Fat Layer Exposed Amount of bleeding with debridement: Mild Bleeding Controlled with: Pressure Patient tolerated procedure well - Additional Wound Wound debrided: Right anterior lower leg Laterality: Right Type of Debridement: Excisional debridement Anesthesia Used: 4% Lidocaine Solution Depth: in the subcutaneous layer Percentage of wound debrided: 100 Instrument Used: 7mm curette Tissue Removed: Slough and devitalized tissue Severity: Fat Layer Exposed Amount of bleeding with debridement: Mild Bleeding Controlled with: Pressure Patient tolerated procedure: Patient tolerated procedure well Assessment/Plan Active Problems (Last Updated 01/11/18 @ 08:41 by Adeline Andres) Venous ulcer of left leg (Chronic) Venous ulcer of right leg (Chronic) Cellulitis of right lower extremity (Acute) Delayed wound healing (Chronic) Venous insufficiency (Chronic) Morbid obesity (Chronic) Ulcer of right lower extremity with fat layer exposed (Chronic) Lymphedema (Chronic) Assessment: Right posterior lower leg ulcer. Right anterior lower leg ulcer. Left anterior lower leg ulcer - healed. Cellulitis of right lower extremity - resolved. Chronic lymphedema Plan: Debridement performed today in clinic as above. Given the duration of the venous ulcers and failure of the ulcers to respond to standard wound care, we have applied and been approved for advanced skin substitutes. The patient was approved for Puraply and Nu-shield and Apligraf. Puraply application #2 was performed to her right posterior lower extremity ulcer per manufacture guideli roosevelt. 100% of the product was used. Pure apply was covered with Adaptic touch and secured with Steri-Strips. Aquacel was placed over Adaptic touch on posterior RLE ulcer. ABD pads were placed atop both dressings to absorb excess drainage. At home wound-care instructions: Keep dressings dry and intact. Do not get wet or soak right leg. Change Aquacel and ABD as outer dressing daily and as needed for heavy drainage. Do not remove the Puraply dressing. If it does fall off, may return resume use of daily Aquacel Ag changes. Compression: She is encouraged to use her lymphedema pumps to help reduce swelling of her bilateral lower extremities and to elevate her legs frequently throughout the day. Off-loading: Patient was advised to avoid pressure on her ulcer sites. She is to keep feet elevated at or above waist level when seated. She is to avoid prolonged standing or dangling of legs. Diet: Patient encouraged to increase protein and vitamin C intake while taking caution to avoid high carbohydrate and/or sugar intake. Labs/cultures/imaging: Lab work from [facility] has not yet been received, and will again be requested for review. Vascular studies from 2017 were reviewed. Wound cultures collected on 01/03/2020 were positive for 3+ Aeromonas hydrophilia/caviae, 2+ Citrobacter braakii, 1+ Proteus mirabilis, rare Staphylococus aureus, anaerobic cocci, actinomyces odontolyticus, Bacteroides fragilis; beta-lactamase positive. She was started on Levaquin and Augmentin. She has completed Levaquin, and has 10 days of Augmentin remaining. Follow-up: Return to clinic in 1 week for re- evaluation. Return sooner or report to the emergency room should symptoms worsen, or new symptoms arise. Note: [employer] speech recognition gold buyer software was used to create portions of this document. Sound-alike and misspelled words, as well as other gold buyer errors may be contained in the documentation. [id number]: [id number] Skin sub graft trnk/arm/leg
[2020-01-24 09:04] VITALS: BP 168/98; PULSE 98
[2020-01-31 08:02] VITALS: BP 167/93; PULSE 64; RESP 18; TEMP 35.8; BMI 49.0
--- NOTE | 2020-01-31 08:40 | PN.PCM_ITS ---
(1) Venous ulcer of right leg Status: Chronic Code(s): I83.019 - Varicose veins of right lower extremity with ulcer of unspecified site; L97.919 - Non-pressure chronic ulcer of unspecified part of right lower leg with unspecified severity (2) Venous ulcer of left leg Status: Chronic Code(s): I83.029 - Varicose veins of left lower extremity with ulcer of unspecified site; L97.929 - Non-pressure chronic ulcer of unspecified part of left lower leg with unspecified severity (3) Cellulitis of right lower extremity Status: Acute Code(s): L03.115 - Cellulitis of right lower limb (4) Lymphedema Status: Chronic Code(s): I89.0 - Lymphedema, not elsewhere classified (5) Venous insufficiency Status: Chronic (6) Morbid obesity Status: Chronic Code(s): E66.01 - Morbid (severe) obesity due to excess calories Type of Wound Date of Service: 01/31/20 Chief Complaint: ulcers of both legs History of Wound: [facility] for evaluation and treatment of bilateral lower leg ulcers. The patient is [facility] treatment of prior lower e xtremity ulcers. She has a PMH significant for chronic lymphedema, venous insufficiency, atrial fibrillation (on Eliquis), morbid obesity, hypothyroidism. She reports development of her posterior right lower leg ulcer in April. She initially was using Manuka honey to this ulcer, but recently started using Vaseline instead. She reports her anterior right lower extremity ulcer developed in August, and she has been applying Vaseline to this daily. Her anterior left lower extremity ulcer developed approximately 1 week ago, and she has been applying Vaseline to this daily as well. She notes that approximately 4 to 6 weeks ago the ulcer on her posterior right lower leg began increasing and soreness. She has lymphedema pumps at home, but has not been using these due to reported pain with use which is related to her ulcers. She does not use compression at home. She reports frequent dangling of her legs while seated at her computer for work. She does not frequently elevate her feet when seated. The patient denies any fever, chills, nausea, vomiting, or diarrhea. Denies any increasing pain, redness, or swelling of the affected area. She does note foul- smelling drainage from her right lower extremity. She has not been on any antibiotics recently. She reports having lab work done approximately 6 weeks ago; these records will be requested for review. She reports no change in sy mptoms since lab work was completed. She had lower extremity arterial studies completed 05/16/16 which showed relatively normal arterial perfusion to ankle level bilaterally. Triphasic waveforms were noted at ankle level bilaterally. Resting ankle-brachial indices were bilaterally. normal. The right digital- brachial index is normal, consistent with normal arterial perfusion at distal, small-vessel level in the right lower extremity. The left digital-brachial index is mildly diminished, suggesting the presence of mild, distal, small- vessel arterial occlusive disease in the left lower extremity. Wound cultures collected on 01/03/2020 were positive for 3+ Aeromonas hydrophilia/caviae, 2+ Citrobacter braakii, 1+ Proteus mirabilis, rare Staphylococus aureus, anaerobic cocci, actinomyces odontolyticus, Bacteroides fragilis; beta-lactamase positive. She was started on Levaquin and Augmentin. Progress of Wound: Toña returns today for follow up of ulcers of her right lower extremity. She has improvement in the size and appearance of her right lower extremity ulcers. She has been tolerating Puraply dressings to her right lower extremity ulcers well, and was able to keep them on for the full week this time. She continues to have moderate to heavy drainage from her right lower extremity ulcers. Her left lower extremity ulcer is healed per patient. She admittedly has not been doing well with TOMAS wraps as they do not stay in place and cause her to have pain. She has been trying to elevate her legs more frequently. She reports she has still been unable to resume use of her lymphedema pumps due to pain related to her ulcers. She has been trying to increase her protein intake. The patient denies any fever, chills, nausea, vomiting, or diarrhea. Denies any increasing pain, redness, swelling, or purulent/malodorous drainage from affected area. - Physical Exam Vital Signs Temp Pulse Resp BP 96.5 F L 64 18 167/93 H 01/31/20 08:02 01/31/20 08:02 01/31/20 08:02 01/31/20 08:02 General: Alert, Cooperative, No apparent distress HEENT: Atraumatic, Normocephalic Oral: Moist Mucosa Neck: Supple Lungs: Normal air movement Cardiovascular: Regular rate Abdomen: Obese Extremities: No clubbing, No cyanosis, Capillary Refill Less than 3 Seconds, Edema - +2 pitting edema and lymphedema of bilateral lower extremities, Peripheral Pulses Normal Skin: Ulcer/ Wound - 1. VLU posterior RLE with fat layer exposed. 2. VLU anterior RLE with fat layer exposed. Both ulcers of RLE are without tunneling, undermining, or probing to bone. Malodor has resolved. Ulcer and periulcer warmth have resolved. Large amount of slough and devitalized tissue present Wound Measurements and Assessment WC - Nurse 1 - General Ulcer Measurement Start: 01/03/20 08:04 Freq: Status: Active Protocol: Activity Type Activity Date Activity User E-Sign Co-Sign Detail Recorded Client Recorded Date Recorded By Document 01/31/20 08:02 MS [id number] 01/31/20 08:13 MS 01/31/20 08:02 Wound Center Nurse 1 [Ulcer Assessment] #8 RLE Post -Combined with other wound No -Current Size (cm) - Length 8.5 -Current Size (cm) - Width 7.5 -Current Size (cm) - Depth 0.3 -Total Square Cm 63.75 -Tunneling No -Undermining/Tunneling No -Circular Undermining No -Exudate Amt Large -Exudate Type Serosanguineous -Wound Margin Flat & Intact -Granulation Amt Small (1-33%) -Granulation Quality [place] -Slough/Fibrin Yes -Necrosis Amt Large (67-100%) -Necrotic Tissue Type Adherent Slough -Structure Exposed N/A -Texture (Irene-wound Skin Appearance) Assessed, Scarring -Moisture (Irene-wound Skin Appearance Assessed ) -Color (Irene-wound Skin Appearance) Assessed -Temperature (Irene-wound Skin No Abnormality Appearance) (Pt Warm) -Tenderness on Palpation (Irene-wound No Skin Appearance) -Ulcer Cleansing Wound Cleanser -Foul Odor after Cleansing No -Anesthetic Used 4% Lidocaine Solution #7 RLE Ant Cluster -Combined with other wound No -Current Size (cm) - Length 5.3 -Current Size (cm) - Width 5.5 -Current Size (cm) - Depth 0.1 -Total Square Cm 29.15 -Photo Taken No -Tunneling No -Undermining/Tunneling No -Circular Undermining No -Exudate Amt Large -Exudate Type Serosanguineous -Wound Margin Flat & Intact -Granulation Amt Small (1-33%) -Granulation Quality [place] -Slough/Fibrin Yes -Necrosis Amt Large (67-100%) -Necrotic Tissue Type Adherent Slough -Structure Exposed N/A -Texture (Irene-wound Skin Appearance) Scarring -Moisture (Irene-wound Skin Appearance Assessed ) -Color (Irene-wound Skin Appearance) Assessed -Temperature (Irene-wound Skin No Abnormality Appearance) (Pt Warm) -Tenderness on Palpation (Irene-wound No Skin Appearance) -Ulcer Cleansing Wound Cleanser -Foul Odor after Cleansing No -Anesthetic Used 4% Lidocaine Solution [Edema Assessment] -Lower Limb Edema Present NA -Right Calf (cm) 74 -Right Ankle (cm) 34 Musculoskeletal: Tenderness - To palpation/debridement Psych/Mental Status: Normal Affect, Appropriate Debridement Note Post-Debridement Measurements/Treatment WC - Nurse 2 - General Ulcer CM Notes Start: 01/03/20 08:04 Freq: Status: Active Protocol: Activity Type Activity Date Activity User E-Sign Co-Sign Detail Recorded Client Recorded Date Recorded By Document 01/03/20 13:37 PL [id number] 01/03/20 13:41 PL Document 01/17/20 08:30 MW [id number] 01/17/20 09:08 MW Document 01/24/20 13:34 PL [id number] 01/24/20 13:39 PL 01/03/20 01/17/20 01/24/20 13:37 08:30 13:34 Wound Center Nurse 2 #9 LLE [place] -Time 09:14 08:32 -Correct Patient Yes Yes -Correct Side, Site, Position Yes Yes -Correct Procedure Yes Yes -Procedure Performed Yes No -Type of Procedure Debridement -Clinical Debridement Subcutaneous -Tissue Removed Subcutaneous -Post Debridement (cm) - Length 0.9 0 -Post Debridement (cm) - Width 0.8 0 -Post Debridement (cm) - Depth 0.1 0 -Total Square (Post) (cm) 0.72 0 -Area of Debridement (cm) - Length 0.9 -Area of Debridement (cm) - Width 0.8 -Total Square (Area) (cm) 0.72 -Tunneling No -Undermining/Tunneling No -Circular Undermining No -Wound/Ulcer Outcome Not Healed Healed- Epithelialized -Ulcer Cleansing Rinsed/ Not Cleansed Irrigated with Saline -Foul Odor after Cleansing No -Bioengineered Tissue No -Treatment Response Procedure Tolerated Well -Debridement - Subq, 1st 20sq cm No #8 RLE Post -Time 09:18 08:32 08:10 -Correct Patient Yes Yes Yes -Correct Side, Site, Position Yes Yes Yes -Correct Procedure Yes Yes Yes -Procedure Performed Yes Yes Yes -Type of Procedure Debridement Debridement Debridement -Clinical Debridement Subcutaneous Subcutaneous Subcutaneous -Tissue Removed Subcutaneous Subcutaneous Subcutaneous -Post Debridement (cm) - Length 8.6 8.0 7.8 -Post Debridement (cm) - Width 8.2 8.0 8 -Post Debridement (cm) - Depth 1.0 0.3 0.5 -Total Square (Post) (cm) 70.52 64.00 62.4 -Area of Debridement (cm) - Length 8.6 8.0 7.8 -Area of Debridement (cm) - Width 8.2 8.0 8 -Total Square (Area) (cm) 70.52 64.00 62.4 -Tunneling No No No -Undermining/Tunneling No No No -Circular Undermining No No No -Wound/Ulcer Outcome Not Healed Not Healed Not Healed -Ulcer Cleansing Rinsed/ Rinsed/ Rinsed/ Irrigated with Irrigated with Irrigated with Saline Saline Saline -Foul Odor after Cleansing No No No -Bioengineered Tissue No Yes Yes -Type of Bioengineered Tissue PuraPly AM PuraPly AM -Expiration Date 08/30/20 06/10/21 -Product Lot Number [id number] -Percent Used 100 100 -Saline Lot Number [id number] -Bleeding Controlled with Pressure Pressure -Offloading No -Treatment Response Procedure Tolerated Well -Debridement - Subq, 1st 20sq cm Yes No No -Debridement, SubQ, ea addt'l 20sq cm 3 or part thereof -Apply Skin Sub - 1st 100 sq cm - Legs 1 -Apply Skin Sub - each addt'l 100 sq 1 cm - Legs -PuraPly AM (per sq cm) 128 54 #7 RLE Ant Cluster -Time 09:14 08:33 08:20 -Correct Patient Yes Yes Yes -Correct Side, Site, Position Yes Yes Yes -Correct Procedure Yes Yes Yes -Procedure Performed Yes Yes Yes -Type of Procedure Debridement Debridement Debridement -Clinical Debridement Subcutaneous Subcutaneous Subcutaneous -Tissue Removed Subcutaneous Subcutaneous Subcutaneous -Post Debridement (cm) - Length 4.5 6.0 5.4 -Post Debridement (cm) - Width 7.5 5.4 6 -Post Debridement (cm) - Depth 0.2 0.1 0.1 -Total Square (Post) (cm) 33.75 32.40 32.4 -Area of Debridement (cm) - Length 4.5 6.0 5.4 -Area of Debridement (cm) - Width 7.5 5.4 6.0 -Total Square (Area) (cm) 33.75 32.40 32.40 -Tunneling No No -Undermining/Tunneling No No -Circular Undermining No No -Wound/Ulcer Outcome Not Healed Not Healed -Ulcer Cleansing Rinsed/ Rinsed/ Rinsed/ Irrigated with Irrigated with Irrigated with Saline Saline Saline -Foul Odor after Cleansing No No No -Bioengineered Tissue No No No -Bleeding Controlled with Pressure -Offloading No -Treatment Response Procedure Tolerated Well -Debridement - Subq, 1st 20sq cm No Yes No -Debridement, SubQ, ea addt'l 20sq cm 2 1 or part thereof Pain Scale: 0-10 Numeric Is Patient Pain Free? Yes Yes Yes - Nurse 3 - General Ulcer D/C NN Start: 01/03/20 08:04 Freq: Status: Active Protocol: Activity Type Activity Date Activity User E-Sign Co-Sign Detail Recorded Client Recorded Date Recorded By Document 01/03/20 10:14 [facility] [id number] 01/03/20 10:20 [facility] Document 01/17/20 09:38 DL [id number] 01/17/20 09:40 DL Document 01/24/20 09:04 MS [id number] 01/24/20 09:06 MS 01/03/20 01/17/20 01/24/20 10:14 09:38 09:04 Wound Care Nurse 3 #9 LLE [place] -Ulcer Cleansing Rinsed/ Irrigated with Saline -Foul Odor after Cleansing No -Primary Dressing Applied Aquacel Extra, NonAdherent Contact Layer -Primary Dressing Covered/Secured with Dry Gauze & Roll Gauze, Secured with Tape,Other -Other Covering abd -Aquacel Extra 2 #8 RLE Post -Ulcer Cleansing Rinsed/ Not Cleansed Irrigated with Saline -Foul Odor after Cleansing No No No -Negative Pressure Wound Therapy N/A -Primary Dressing Applied Other Aquacel Extra -Other Dressing medihoney Puraply -Primary Dressing Covered/Secured with Dry Gauze & Dry Gauze & Dry Gauze,Dry Roll Gauze, Roll Gauze, Gauze & Roll Secured with Secured with Gauze,Secured Tape,Other Tape with Tape -Other Covering abd -Aquacel Extra 3 #7 RLE Ant Cluster -Ulcer Cleansing Rinsed/ Not Cleansed Irrigated with Saline -Foul Odor after Cleansing No No No -Primary Dressing Applied Aquacel AG 4x4, NonAdherent Contact Layer -Other Dressing Puraply -Primary Dressing Covered/Secured with Dry Gauze & Dry Gauze & Dry Gauze & Roll Gauze, Roll Gauze, Roll Gauze, Secured with Secured with Secured with Tape,Other Tape Tape -Other Covering abd ABD -Aquacel AG 4x4 0 Right -Compression Wrap Tomas Wrap Left -Compression Wrap Tomas Wrap Treatment Response Procedure Tolerated Well Vital Signs Pulse Rate (60-100) 68 98 Pulse Location Monitor Monitor Blood Pressure (90/60-120/80) 158/90 H 168/98 H Blood Pressure Mean (mm Hg) 112 121 Source Monitor Monitor Position Sitting Blood Pressure Location Right Arm Pain Scale: 0-10 Numeric Is Patient Pain Free? Yes Yes Yes WC - Visit Discharge Discharge Condition Stable Stable Stable Ambulatory Status Ambulatory Ambulatory Ambulatory Transportation Private Auto Private Auto Private Auto Wound debrided: Posterior lower leg Laterality: Right Type of Debridement: Excisional debridement Anesthesia Used: 4% Lidocaine Solution, Cetacaine Depth: in the subcutaneous layer Percentage of wound debrided: 100 Instrument Used: 7mm curette Tissue Removed: Slough and devitalized tissue Severity: Fat Layer Exposed Amount of bleeding with debridement: Mild Bleeding Controlled with: Pressure Patient did not tolerate procedure well - Additional Wound Wound debrided: Anterior lower leg Laterality: Right Type of Debridement: Excisional debridement Anesthesia Used: 4% Lidocaine Solution, Cetacaine Depth: in the subcutaneous layer Percentage of wound debrided: 100 Instrument Used: 5mm curette Tissue Removed: Slough and devitalized tissue Severity: Fat Layer Exposed Amount of bleeding with debridement: Mild Bleeding Controlled with: Pressure Patient tolerated procedure: Patient did not tolerate procedure well Assessment/Plan Active Problems (Last Updated 01/11/18 @ 08:41 by Adeline Andres) Venous ulcer of left leg (Chronic) Venous ulcer of right leg (Chronic) Cellulitis of right lower extremity (Acute) Delayed wound healing (Chronic) Venous insufficiency (Chronic) Morbid obesity (Chronic) Ulcer of right lower extremity with fat layer exposed (Chronic) Lymphedema (Chronic) Assessment: Right posterior lower leg ulcer. Right anterior lower leg ulcer. Left anterior lower leg ulcer - healed. Cellulitis of right lower extremity - resolved. Chronic lymphedema Plan: Debridement performed today in clinic as above. Given the duration of the venous ulcers and failure of the ulcers to respond to standard wound care, we have applied and been approved for advanced skin substitutes. The patient was approved for Puraply and Nu-shield and Apligraf. A total of 2 applications of puraply have been performed to the right posterior lower extremity ulcer. I will have patient change to daily Aquacel Ag dressing changes. At home wound- care instructions: Wash wounds thoroughly with antibacterial soap and water daily, or more often as needed due to contamination. After rinsing well and drying, apply a new Aquacel Ag dressing to each ulcer. Cover with an ABD pad or gauze to absorb excess drainage. Compression: She is encouraged to use her lymphedema pumps to help reduce swelling of her bilateral lower extremities and to elevate her legs frequently throughout the day. Off-loading: Patient was advised to avoid pressure on her ulcer sites. She is to keep feet elevated at or above waist level when seated. She is to avoid prolonged standing or dangling of legs. Diet: Patient encouraged to increase protein and vitamin C intake while taking caution to avoid high carbohydrate and/or sugar intake. Labs/cultures/imaging: Lab work from [facility] has not yet been received, and will again be requested for review. Vascular studies from 2017 were reviewed. Wound cultures collected on 01/03/2020 were positive for 3+ Aeromonas hydrophilia/caviae, 2+ Citrobacter braakii, 1+ Proteus mirabilis, rare Staphylococus aureus, anaerobic cocci, actinomyces odontolyticus, Bacteroides fragilis; beta-lactamase positive. She was started on Levaquin and Augmentin. She has completed Levaquin, and has 3 days of Augmentin remaining. Follow-up: Return to clinic in 1 week for re-evaluation. Return sooner or report to the emergency room should symptoms worsen, or new symptoms arise. Note: [employer] speech recognition medical research scientist software was used to create portions of this document. Sound-alike and misspelled words, as well as other medical research scientist errors may be contained in the documentation. [id number]: [id number] Shante subq tissue 20 sq cm/< Add On Codes: 32123 Shante subq tissue add-on - x3
[2020-01-31 08:59] VITALS: BP 146/81
== END 2020-02-01 23:59 ==
LOC: WC 08:00
PROVIDERS: PCP Family Medicine; Referring Provider Family Medicine; Visit Provider Nurse Practitioner Family
DX: I83.018 Varicose veins of right lower extremity with ulcer other part of lower leg (principal); I83.028 Varicose veins of left lower extremity with ulcer other part of lower leg; L97.812 Non-pressure chronic ulcer of other part of right lower leg with fat layer exposed; L97.822 Non-pressure chronic ulcer of other part of left lower leg with fat layer exposed; L03.115 Cellulitis of right lower limb; I89.0 Lymphedema, not elsewhere classified; E66.01 Morbid (severe) obesity due to excess calories; I87.2 Venous insufficiency (chronic) (peripheral); Z79.01 Long term (current) use of anticoagulants; E03.9 Hypothyroidism, unspecified; Z79.899 Other long term (current) drug therapy
CPT/HCPCS: 11042; 11045; 15273; 15274; 87070; 87075; 87077; 87186; 87205; 99213; Q4196; G0463

== ENCOUNTER 2020-02-21 08:00 | Outpatient (RCR) | payer MEDICAID, SELFPAY ==
[2020-02-02 00:07] VITALS: BP 146/81; PULSE 64; RESP 18; TEMP 35.8
[2020-02-07 07:53] VITALS: BP 143/96; PULSE 72; RESP 18; TEMP 36; BMI 49.0
--- NOTE | 2020-02-07 08:54 | PCM.WC.PN ---
(1) Ulcer of right lower extremity with fat layer exposed Status: Chronic Code(s): L97.912 - Non-pressure chronic ulcer of unspecified part of right lower leg with fat layer exposed (2) Venous insufficiency Status: Chronic (3) Venous ulcer of right leg Status: Chronic Code(s): I83.019 - Varicose veins of right lower extremity with ulcer of unspecified site; L97.919 - Non-pressure chronic ulcer of unspecified part of right lower leg with unspecified severity (4) Lymphedema Status: Chronic Code(s): I89.0 - Lymphedema, not elsewhere classified (5) Cellulitis of right lower extremity Status: Acute Code(s): L03.115 - Cellulitis of right lower limb (6) Morbid obesity Status: Chronic Code(s): E66.01 - Morbid (severe) obesity due to excess calories Type of Wound Date of Service: 02/07/20 Chief Complaint: ulcers of both legs History of Wound: Toña [facility] for evaluation and treatment of bilateral lower leg ulcers. The patient is [facility] from treatment of prior lower extremity ulcers. She has a PMH significant for chronic lymphedema, venous insufficiency, atrial fibrillation (on Eliquis), morbid obesity, hypothyroidism. She reports development of her posterior right lower leg ulcer in April. She initially was using Manuka honey to this ulcer, but recently started using Vaseline instead. She reports her anterior right lower extremity ulcer developed in August, and she has been applying Vaseline to this daily. Her anterior left lower extremity ulcer developed approximately 1 week ago, and she has been applying Vaseline to this daily as well. She notes that approximately 4 to 6 weeks ago the ulcer on her posterior right lower leg began increasing and soreness. She has lymphedema pumps at home, but has not been using these due to reported pain with use which is related to her ulcers. She does not use compression at home. She reports frequent dangling of her legs while seated at her computer for work. She does not frequently elevate her feet when seated. The patient denies any fever, chills, nausea, vomiting, or diarrhea. Denies any increasing pain, redness, or swelling of the affected area. She does note foul-smelling drainage from her right lower extremity. She has not been on any antibiotics recently. She reports having lab work done approximately 6 weeks ago; these records will be requested for review. She reports no change in symptoms since lab work was completed. She had lower extremity arterial studies completed 05/16/16 which showed relatively normal arterial perfusion to ankle level bilaterally. Triphasic waveforms were noted at ankle level bilaterally. Resting ankle-brachial indices were bilaterally. normal. The right digital-brachial index is normal, consistent with normal arterial perfusion at distal, small-vessel level in the right lower extremity. The left digital-brachial index is mildly diminished, suggesting the presence of mild, distal, small-vessel arterial occlusive disease in the left lower extremity. Wound cultures collected on 01/03/2020 were positive for 3+ Aeromonas hydrophilia/caviae, 2+ Citrobacter braakii, 1+ Proteus mirabilis, rare Staphylococus aureus, anaerobic cocci, actinomyces odontolyticus, Bacteroides fragilis; beta-lactamase positive. She was started on Levaquin and Augmentin. Progress of Wound: Toña returns today for follow up of ulcers of her right lower extremity. She has improvement in the appearance of her right lower extremity ulcers. She has been tolerating Aquacel Ag dressings to her right lower extremity ulcers well. She continues to have moderate drainage from her right lower extremity ulcers. Her left lower extremity ulcer remains healed per patient. She admittedly has not been doing well with MILDRED wraps as they do not stay in place and cause her to have pain. She has been trying to elevate her legs more frequently. She reports she has still been unable to resume use of her lymphedema pumps due to pain related to her ulcers. She has been trying to increase her protein intake. The patient denies any fever, chills, nausea, vomiting, or diarrhea. Denies any increasing pain, redness, swelling, or purulent/malodorous drainage from affected area. - Physical Exam Vital Signs Temp Pulse Resp BP 96.8 F L 72 18 143/96 H 02/07/20 07:53 02/07/20 07:53 02/07/20 07:53 02/07/20 07:53 General: Alert, Cooperative, No apparent distress HEENT: Atraumatic, Normocephalic Oral: Moist Mucosa Neck: Trachea Midline Lungs: Normal air movement Abdomen: Obese Extremities: No clubbing, No cyanosis, Capillary Refill Less than 3 Seconds, Diminished Peripheral Pulses, Edema - 2+ pitting edema of BLE Skin: Ulcer/ Wound - Ulcers of right lower extremity with subcutaneous layer exposed. Large amount of slough and devitalized tissue present. No malodor. No periulcer erythema or warmth. Wound Measurements and Assessment WC - Nurse 1 - General Ulcer Measurement Start: 02/07/20 07:53 Freq: Status: Active Protocol: Activity Type Activity Date Activity User E-Sign Co-Sign Detail Recorded Client Recorded Date Recorded By Document 02/07/20 07:53 PL [id number] 02/07/20 08:01 PL 02/07/20 07:53 [facility] Nurse 1 [Ulcer Assessment] #8 RLE Post -Combined with other wound No -Current Size (cm) - Length 8.5 -Current Size (cm) - Width 7 -Current Size (cm) - Depth 0.3 -Total Square Cm 59.5 -Photo Taken No -Epithelialization None Present -Tunneling No -Undermining/Tunneling No -Circular Undermining No -Exudate Amt Medium -Exudate Type Serosanguineous -Granulation Amt Medium (34-66%) -Granulation Quality Pale -Slough/Fibrin Yes -Necrosis Amt Medium (34-66%) -Necrotic Tissue Type Adherent Slough -Texture (Irene-wound Skin Appearance) Assessed -Moisture (Irene-wound Skin Appearance No Abnormality ) -Color (Irene-wound Skin Appearance) No Abnormality -Temperature (Irene-wound Skin No Abnormality Appearance) (Pt Warm) -Ulcer Cleansing Rinsed/ Irrigated with Saline -Foul Odor after Cleansing No -Anesthetic Used 5% Lidocaine Gel #7 RLE Ant Cluster -Combined with other wound No -Current Size (cm) - Length 3.9 -Current Size (cm) - Width 5.5 -Current Size (cm) - Depth 0.3 -Total Square Cm 21.45 -Photo Taken No -Epithelialization Small 1-33% -Tunneling No -Undermining/Tunneling No -Circular Undermining No -Exudate Amt Medium -Exudate Type Serosanguineous -Granulation Amt Small (1-33%) -Granulation Quality [place] -Slough/Fibrin Yes -Necrosis Amt Large (67-100%) -Necrotic Tissue Type Adherent Slough -Temperature (Irene-wound Skin No Abnormality Appearance) (Pt Warm) -Ulcer Cleansing Rinsed/ Irrigated with Saline -Foul Odor after Cleansing No -Anesthetic Used 5% Lidocaine Gel Musculoskeletal: Tenderness - on debridement Psych/Mental Status: Normal Affect, Appropriate Debridement Note Wound debrided: Right lower extremity posterior ulcer Laterality: Right Type of Debridement: Excisional debridement Anesthesia Used: 5% Lidocaine Gel Depth: in the subcutaneous layer Percentage of wound debrided: 100 Instrument Used: 7mm curette Tissue Removed: Slough and devitalized tissue Severity: Fat Layer Exposed Amount of bleeding with debridement: Mild Bleeding Controlled with: Pressure Patient tolerated procedure well - Additional Wound Wound debrided: Right lower extremity anterior ulcer cluster Laterality: Right Type of Debridement: Excisional debridement Anesthesia Used: 5% Lidocaine Gel Depth: in the subcutaneous layer Percentage of wound debrided: 100 Instrument Used: 5mm curette Tissue Removed: Slough in devitalized tissue Severity: Fat Layer Exposed Amount of bleeding with debridement: Mild Bleeding Controlled with: Pressure Patient tolerated procedure: Patient tolerated procedure well Assessment/Plan Assessment: Right posterior lower leg ulcer. Right anterior lower leg ulcer. Left anterior lower leg ulcer - healed. Cellulitis of right lower extremity - resolved. Chronic lymphedema Plan: Debridement performed today in clinic as above. Given the duration of the venous ulcers and failure of the ulcers to respond to standard wound care, we have applied and been approved for advanced skin substitutes. The patient was approved for Puraply and Nu-shield and Apligraf. A third application of puraply was performed to the right posterior lower extremity ulcer today following debridement. 100% of the product was used. I will have patient continue daily Aquacel Ag dressing changes to the right leg anterior ulcer cluster. At home wound-care instructions: Wash right anterior ulcer cluster thoroughly with antibacterial soap and water daily, or more often as needed due to contamination. After rinsing well and drying, apply a new Aquacel Ag dressing to each ulcer. Cover with an ABD pad or gauze to absorb excess drainage. Leave puraply dressing to right posterior leg ulcer dry, clean and intact x1 week. Change outer dressing as needed due to drainage. Compression: She is encouraged to use her lymphedema pumps to help reduce swelling of her bilateral lower extremities and to elevate her legs frequently throughout the day. Off-loading: Patient was advised to avoid pressure on her ulcer sites. She is to keep feet elevated at or above waist level when seated. She is to avoid prolonged standing or dangling of legs. Diet: Patient encouraged to increase protein and vitamin C intake while taking caution to avoid high carbohydrate and/or sugar intake. Labs/cultures/imaging: Lab work from [facility] has not yet been received, and will again be requested for review. Vascular studies from 2017 were reviewed. Wound cultures collected on 01/03/2020 were positive for 3+ Aeromonas hydrophilia/caviae, 2+ Citrobacter braakii, 1+ Proteus mirabilis, rare Staphylococus aureus, anaerobic cocci, actinomyces odontolyticus, Bacteroides fragilis; beta-lactamase positive. She was started on Levaquin and Augmentin. She has completed these antibiotics. Follow-up: Return to clinic in 1 week for re-evaluation. Return sooner or report to the emergency room should symptoms worsen, or new symptoms arise. Note: [employer] speech recognition registered medical transcriptionist software was used to create portions of this document. Sound-alike and misspelled words, as well as other registered medical transcriptionist errors may be contained in the documentation. [id number]: [id number] Skin sub graft trnk/arm/leg
[2020-02-14 08:07] VITALS: BP 148/72; PULSE 82; RESP 22; TEMP 36; BMI 49.0
--- NOTE | 2020-02-14 08:50 | PN.PCM_ITS ---
(1) Ulcer of right lower extremity with fat layer exposed Status: Chronic Code(s): L97.912 - Non-pressure chronic ulcer of unspecified part of right lower leg with fat layer exposed (2) Venous insufficiency Status: Chronic (3) Venous ulcer of right leg Status: Chronic Code(s): I83.019 - Varicose veins of right lower extremity with ulcer of unspecified site; L97.919 - Non-pressure chronic ulcer of unspecified part of right lower leg with unspecified severity (4) Lymphedema Status: Chronic Code(s): I89.0 - Lymphedema, not elsewhere classified (5) Cellulitis of right lower extremity Status: Acute Code(s): L03.115 - Cellulitis of right lower limb (6) Morbid obesity Status: Chronic Code(s): E66.01 - Morbid (severe) obesity due to excess calories Type of Wound Date of Service: 02/14/20 Chief Complaint: ulcers of both legs History of Wound: To[facility] for evaluation and treatment of bilateral lower leg ulcers. The patient is [facility] treatment of prior lower extremity ulcers. She has a PMH significant for chronic lymphedema, venous insufficiency, atrial fibrillation (on Eliquis), morbid obesity, hypothyroidism. She reports development of her posterior right lower leg ulcer in April. She initially was using Manuka honey to this ulcer, but recently started using Vaseline instead. She reports her anterior right lower extremity ulcer developed in August, and she has been applying Vaseline to this daily. Her anterior left lower extremity ulcer developed approximately 1 week ago, and she has been applying Vaseline to this daily as well. She notes that approximately 4 to 6 weeks ago the ulcer on her posterior right lower leg began increasing and soreness. She has lymphedema pumps at home, but has not been using these due to reported pain with use which is related to her ulcers. She does not use com pression at home. She reports frequent dangling of her legs while seated at her computer for work. She does not frequently elevate her feet when seated. The patient denies any fever, chills, nausea, vomiting, or diarrhea. Denies any increasing pain, redness, or swelling of the affected area. She does note foul- smelling drainage from her right lower extremity. She has not been on any antibiotics recently. She reports having lab work done approximately 6 weeks ago; these records will be requested for review. She reports no change in symptoms since lab work was completed. She had lower extremity arterial studies completed 05/16/16 which showed relatively normal arterial perfusion to ankle level bilaterally. Triphasic waveforms were noted at ankle level bilaterally. Resting ankle-brachial indices were bilaterally. normal. The right digital- brachial index is normal, consistent with normal arterial perfusion at distal, small-vessel level in the right lower extremity. The left digital-brachial index is mildly diminished, suggesting the presence of mild, distal, small- vessel arterial occlusive disease in the left lower extremity. Wound cultures collected on 01/03/2020 were positive for 3+ Aeromonas hydrophilia/caviae, 2+ Citrobacter braakii, 1+ Proteus mirabilis, rare Staphylococus aureus, anaerobic cocci, actinomyces odontolyticus, Bacteroides fragilis; beta-lactamase positive. She was started on Levaquin and Augmentin. Progress of Wound: Toña returns today for follow up of ulcers of her right lower extremity. She has improvement in the appearance of her right lower extremity ulcers. She has an increase in red granulation and a decrease in slough and bioburden. She has been compliant with the use of Puraply to her posterior RLE and is tolerating this well. She has been tolerating Aquacel Ag dressings to her anterior RLE ulcer well. She continues to have moderate drainage from her right lower extremity ulcers. Her left lower extremity ulcer remains healed per patient. She discontinued MILDRED wraps as they do not stay in place and cause her to have pain. She refused compression due to discomfort. She has been trying to elevate her legs more frequently. She reports she has still been unable to resume use of her lymphedema pumps due to pain related to her ulcers. She has been trying to increase her protein intake. The patient denies any fever, chills, nausea, vomiting, or diarrhea. Denies any increasing pain, redness, swelling, or purulent/malodorous drainage from affected area. - Physical Exam Vital Signs Temp Pulse Resp BP 96.8 F L 82 22 H 148/72 H 02/14/20 08:07 02/14/20 08:07 02/14/20 08:07 02/14/20 08:07 General: Alert, Cooperative, No apparent distress HEENT: Atraumatic, Normocephalic Oral: Moist Mucosa Neck: Supple, Trachea Midline Lungs: Normal air movement Abdomen: Obese Extremities: No clubbing, No cyanosis, Capillary Refill Less than 3 Seconds, Diminished Peripheral Pulses, Edema - 2+ pitting edema of bilateral lower extremities Skin: No rashes, Ulcer/ Wound - Ulcers of right lower extremity with subcutaneous layer exposed. Moderate amounts of slough and devitalized tissue present. There is an increase in beefy red granulation tissue of the posterior RLE ulcer. No malodor. No periulcer erythema or warmth. Wound Measurements and Assessment WC - Nurse 1 - General Ulcer Measurement Start: 02/07/20 07:53 Freq: Status: Active Protocol: Activity Type Activity Date Activity User E-Sign Co-Sign Detail Recorded Client Recorded Date Recorded By Document 02/14/20 08:07 JORGE [id number] 02/14/20 08:17 DL 02/14/20 08:07 Wound Center Nurse 1 [Ulcer Assessment] #8 RLE Post -Current Size (cm) - Length 8.5 -Current Size (cm) - Width 6.8 -Current Size (cm) - Depth 0.6 -Total Square Cm 57.80 -Photo Taken No -Exudate Amt Medium -Exudate Type Serosanguineous -Wound Margin Distinct, Outline Attached -Granulation Amt Medium (34-66%) -Granulation Quality Red -Necrosis Amt Medium (34-66%) -Necrotic Tissue Type Adherent Slough -Texture (Irene-wound Skin Appearance) Scarring,Rash -Moisture (Irene-wound Skin Appearance No Abnormality ) -Color (Irene-wound Skin Appearance) No Abnormality -Temperature (Irene-wound Skin No Abnormality Appearance) (Pt Warm) -Tenderness on Palpation (Irene-wound No Skin Appearance) -Ulcer Cleansing Wound Cleanser -Foul Odor after Cleansing No -Anesthetic Used 5% Lidocaine Gel #7 RLE Ant Cluster -Current Size (cm) - Length 3.5 -Current Size (cm) - Width 6 -Current Size (cm) - Depth 0.3 -Total Square Cm 21.0 -Photo Taken No -Exudate Amt Small -Exudate Type Serosanguineous -Wound Margin Distinct, Outline Attached -Granulation Amt Medium (34-66%) -Granulation Quality Red -Necrosis Amt Medium (34-66%) -Necrotic Tissue Type Adherent Slough -Texture (Irene-wound Skin Appearance) Scarring,Rash -Moisture (Irene-wound Skin Appearance Dry/Scaly ) -Color (Irnee-wound Skin Appearance) Hemosiderin Staining -Temperature (Irene-wound Skin No Abnormality Appearance) (Pt Warm) -Tenderness on Palpation (Irene-wound No Skin Appearance) -Anesthetic Used 5% Lidocaine Gel Musculoskeletal: Tenderness - to palpation/debridement Psych/Mental Status: Normal Affect, Appropriate Debridement Note Post-Debridement Measurements/Treatment WC - Nurse 2 - General Ulcer CM Notes Start: 02/07/20 07:53 Freq: Status: Active Protocol: Activity Type Activity Date Activity User E-Sign Co-Sign Detail Recorded Client Recorded Date Recorded By Document 02/07/20 12:20 PL [id number] 02/07/20 12:27 PL 02/07/20 12:20 Wound Center Nurse 2 #8 RLE Post -Time 08:27 -Correct Patient Yes -Correct Side, Site, Position Yes -Correct Procedure Yes -Procedure Performed Yes -Type of Procedure Debridement -Clinical Debridement Subcutaneous -Tissue Removed Subcutaneous -Post Debridement (cm) - Length 8.6 -Post Debridement (cm) - Width 7.1 -Post Debridement (cm) - Depth 0.3 -Total Square (Post) (cm) 61.06 -Area of Debridement (cm) - Length 8.6 -Area of Debridement (cm) - Width 7.1 -Total Square (Area) (cm) 61.06 -Tunneling No -Undermining/Tunneling No -Circular Undermining No -Wound/Ulcer Outcome Not Healed -Ulcer Cleansing Rinsed/ Irrigated with Saline -Foul Odor after Cleansing No -Bioengineered Tissue Yes -Type of Bioengineered Tissue PuraPly AM -Expiration Date 06/03/22 -Product Lot Number [id number] -Percent Used 100 -Bleeding Controlled with Pressure -Treatment Response Procedure Tolerated Well -Debridement - Subq, 1st 20sq cm No -Debridement, SubQ, ea addt'l 20sq cm 0 or part thereof -Apply Skin Sub - 1st 25 sq cm - Legs 1 -PuraPly AM (per sq cm) 54 #7 RLE Ant Cluster -Time 08:27 -Correct Patient Yes -Correct Side, Site, Position Yes -Correct Procedure Yes -Procedure Performed Yes -Type of Procedure Debridement -Clinical Debridement Subcutaneous -Tissue Removed Subcutaneous -Post Debridement (cm) - Length 4.0 -Post Debridement (cm) - Width 5.6 -Post Debridement (cm) - Depth 0.3 -Total Square (Post) (cm) 22.40 -Area of Debridement (cm) - Length 4.0 -Area of Debridement (cm) - Width 5.6 -Total Square (Area) (cm) 22.40 -Tunneling No -Undermining/Tunneling No -Circular Undermining No -Wound/Ulcer Outcome Not Healed -Ulcer Cleansing Rinsed/ Irrigated with Saline -Foul Odor after Cleansing No -Bioengineered Tissue No -Debridement - Subq, 1st 20sq cm No -Debridement, SubQ, ea addt'l 20sq cm 0 or part thereof Pain Scale: 0-10 Numeric Is Patient Pain Free? Yes - Nurse 3 - General Ulcer D/C NN Start: 02/07/20 07:53 Freq: Status: Active Protocol: Activity Type Activity Date Activity User E-Sign Co-Sign Detail Recorded Client Recorded Date Recorded By Document 02/07/20 12:20 PL [id number] 02/07/20 12:27 PL 02/07/20 12:20 Is Patient Pain Free? Yes Wound Care Nurse 3 #8 RLE Post -Ulcer Cleansing Rinsed/ Irrigated with Saline -Foul Odor after Cleansing No -Primary Dressing Covered/Secured with Dry Gauze, Secured with Tape #7 RLE Ant Cluster -Ulcer Cleansing Rinsed/ Irrigated with Saline -Foul Odor after Cleansing No -Primary Dressing Applied Aquacel AG 4x4 -Primary Dressing Covered/Secured with Dry Gauze, Secured with Tape -Aquacel AG 4x4 1 - Visit Discharge Ambulatory Status [employer] Private Auto Clinical Summary of Care Provided Yes Wound debrided: RLE posterior ulcer Laterality: Right Type of Debridement: Excisional debridement Anesthesia Used: 4% Lidocaine Solution, Cetacaine Depth: in the subcutaneous layer Percentage of wound debrided: 100 Instrument Used: 7mm curette Tissue Removed: Slough and devitalized tissue Severity: Fat Layer Exposed Amount of bleeding with debridement: Mild Bleeding Controlled with: Pressure Patient did not tolerate procedure well - Additional Wound Wound debrided: RLE anterior ulcer cluster Laterality: Right Type of Debridement: Excisional debridement Anesthesia Used: 4% Lidocaine Solution, Cetacaine Depth: in the subcutaneous layer Percentage of wound debrided: 100 Instrument Used: 7mm curette Tissue Removed: Slough and devitalized tissue Severity: Fat Layer Exposed Amount of bleeding with debridement: Mild Bleeding Controlled with: Pressure Patient tolerated procedure: Patient did not tolerate procedure well Assessment/Plan Active Problems (Last Updated 01/11/18 @ 08:41 by Adeline Andres) Venous ulcer of right leg (Chronic) Cellulitis of right lower extremity (Acute) Venous insufficiency (Chronic) Morbid obesity (Chronic) Ulcer of right lower extremity with fat layer exposed (Chronic) Lymphedema (Chronic) Assessment: Right posterior lower leg ulcer. Right anterior lower leg ulcer. Left anterior lower leg ulcer - healed. Cellulitis of right lower extremity - resolved. Chronic lymphedema Plan: Debridement performed today in clinic as above. Given the duration of the venous ulcers and failure of the ulcers to respond to standard wound care, we have applied and been approved for advanced skin substitutes. The patient was approved for Puraply and Nu-shield and Apligraf. A fourth application of puraply was performed to the right posterior lower extremity ulcer today following debridement. 100% of the product was used. I will have patient continue daily Aquacel Ag dressing changes to the right leg anterior ulcer cluster. She may cover with Adaptic due to fragility of periulcer skin. At [facility] e wound-care instructions: Wash right anterior ulcer cluster thoroughly with antibacterial soap and water daily, or more often as needed due to contamination. After rinsing well and drying, apply a new Aquacel Ag dressing to each ulcer. Cover with an ABD pad or gauze to absorb excess drainage. Leave puraply dressing to right posterior leg ulcer dry, clean and intact x1 week. Change outer dressing as needed due to drainage. Compression: She is encouraged to use her lymphedema pumps to help reduce swelling of her bilateral lower extremities and to elevate her legs frequently throughout the day. She refuses compression wraps. Off-loading: Patient was advised to avoid pressure on her ulcer sites. She is to keep feet elevated at or above waist level when seated. She is to avoid prolonged standing or dangling of legs. Diet: Patient encouraged to increase protein and vitamin C intake while taking caution to avoid high carbohydrate and/or sugar intake. Labs/cultures/imaging: Lab work from [facility] has not yet been received, and will again be requested for review. Vascular studies from 2017 were reviewed. Wound cultures collected on 01/03/2020 were positive for 3+ Aeromonas hydrophilia/caviae, 2+ Citrobacter braakii, 1+ Proteus mirabilis, rare Staphylococus aureus, anaerobic cocci, actinomyces odontolyticus, Bacteroides fragilis; beta-lactamase positive. She was started on Levaquin and Augmentin. She has completed these antibiotics. Follow-up: Return to clinic in 1 week for re-evaluation. Return sooner or report to the emergency room should symptoms worsen, or new symptoms arise. Note: [employer] speech recognition probate lawyer software was used to create portions of this document. Sound-alike and misspelled words, as well as other probate lawyer errors may be contained in the documentation. [id number]: [id number] Skin sub graft trnk/arm/leg Add On Codes: 18951 Skin sub graft t/a/l add-on - x2
[2020-02-21 08:11] VITALS: BP 161/78; PULSE 67; RESP 18; TEMP 36.4; BMI 49.0
--- NOTE | 2020-02-21 08:20 | WC ---
Pt right inner thigh reddmess and warmth noted since 02/18/20 per pt stated
[2020-02-21 09:05] VITALS: BP 150/78
--- NOTE | 2020-02-21 09:57 | PN.PCM_ITS ---
(1) Ulcer of right lower extremity with fat layer exposed Status: Chronic Code(s): L97.912 - Non-pressure chronic ulcer of unspecified part of right lower leg with fat layer exposed (2) Venous insufficiency Status: Chronic (3) Venous ulcer of right leg Status: Chronic Code(s): I83.019 - Varicose veins of right lower extremity with ulcer of unspecified site; L97.919 - Non-pressure chronic ulcer of unspecified part of right lower leg with unspecified severity (4) Lymphedema Status: Chronic Code(s): I89.0 - Lymphedema, not elsewhere classified (5) Cellulitis of right lower extremity Status: Acute Code(s): L03.115 - Cellulitis of right lower limb (6) Morbid obesity Status: Chronic Code(s): E66.01 - Morbid (severe) obesity due to excess calories Type of Wound Date of Service: 02/21/20 Chief Complaint: ulcers of both legs History of Wound: [facility] for evaluation and treatment of bilateral lower leg ulcers. The patient is [facility] treatment of prior lower extremity ulcers. She has a PMH significant for chronic lymphedema, venous insufficiency, atrial fibrillation (on Eliquis), morbid obesity, hypothyroidism. She reports development of her posterior right lower leg ulcer in April. She initially was using Manuka honey to this ulcer, but recently started using Vaseline instead. She reports her anterior right lower extremity ulcer developed in August, and she has been applying Vaseline to this daily. Her anterior left lower extremity ulcer developed approximately 1 week ago, and she has been applying Vaseline to this daily as well. She notes that approximately 4 to 6 weeks ago the ulcer on her posterior right lower leg began increasing and soreness. She has lymphedema pumps at home, but has not been using these due to reported pain with use which is related to her ulcers. She does not use com pression at home. She reports frequent dangling of her legs while seated at her computer for work. She does not frequently elevate her feet when seated. The patient denies any fever, chills, nausea, vomiting, or diarrhea. Denies any increasing pain, redness, or swelling of the affected area. She does note foul- smelling drainage from her right lower extremity. She has not been on any antibiotics recently. She reports having lab work done approximately 6 weeks ago; these records will be requested for review. She reports no change in symptoms since lab work was completed. She had lower extremity arterial studies completed 05/16/16 which showed relatively normal arterial perfusion to ankle level bilaterally. Triphasic waveforms were noted at ankle level bilaterally. Resting ankle-brachial indices were bilaterally. normal. The right digital- brachial index is normal, consistent with normal arterial perfusion at distal, small-vessel level in the right lower extremity. The left digital-brachial index is mildly diminished, suggesting the presence of mild, distal, small- vessel arterial occlusive disease in the left lower extremity. Wound cultures collected on 01/03/2020 were positive for 3+ Aeromonas hydrophilia/caviae, 2+ Citrobacter braakii, 1+ Proteus mirabilis, rare Staphylococus aureus, anaerobic cocci, actinomyces odontolyticus, Bacteroides fragilis; beta-lactamase positive. She was started on Levaquin and Augmentin. Progress of Wound: Toña returns today for follow up of ulcers of her right lower extremity. Both RLE ulcers have an increase in slough and bioburden. The posterior RLE ulcer has periulcer erythema and warmth. She has a mass of localized lymphedema of her right medial thigh which is red and warm today. She notes having a fever of 101.0 Fahrenheit on 02/19/2020, which resolved overnight. She reports an increase in serous wound drainage, but does not know malodorous or purulent drainage. Her left lower extremity ulcer remains healed per patient. She discontinued MILDRED wraps as they do not stay in place and cause her to have pain. She refused compression due to discomfort. She has been noncompliant with instructions to elevate her legs more frequently. 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 She reports she has still been unable to resume use of her lymphedema pumps due to pain related to her ulcers, though she has been continually encouraged that decreasing her swelling will likely provide pain relief and enhance/expedite wound healing. She has been trying to increase her protein intake. The patient denies any nausea, vomiting, or diarrhea. - Physical Exam Vital Signs Temp Pulse Resp BP 97.6 F L 67 18 150/78 H 02/21/20 08:11 02/21/20 08:11 02/21/20 08:11 02/21/20 09:05 General: Alert, Cooperative, No apparent distress HEENT: Atraumatic, Normocephalic Neck: Supple Lungs: Normal air movement Abdomen: Obese Extremities: No clubbing, No cyanosis, Capillary Refill Less than 3 Seconds, Diminished Peripheral Pulses, Edema - 3+ pitting edema bilateral lower extremities. Mass of localized lymphedema of right medial thigh. Skin: No rashes - Erythema and warmth of mass of localized lymphedema of right medial thigh., Ulcer/ Wound - Ulcers of right lower extremity with subcutaneous layer exposed. Large amounts of slough and devitalized tissue present. There is periulcer erythema of the posterior RLE ulcer. No malodor. No purulent drainage. Wound Measurements and Assessment WC - Nurse 1 - General Ulcer Measurement Start: 02/07/20 07:53 Freq: Status: Active Protocol: Activity Type Activity Date Activity User E-Sign Co-Sign Detail Recorded Client Recorded Date Recorded By Document 02/21/20 08:11 CHILO [id number] 02/21/20 08:21 RB 02/21/20 08:11 Wound Center Nurse 1 [Ulcer Assessment] #8 RLE Post -Combined with other wound No -Current Size (cm) - Length 9 -Current Size (cm) - Width 7.2 -Current Size (cm) - Depth 0.2 -Total Square Cm 64.8 -Tunneling No -Undermining/Tunneling No -Circular Undermining No -Exudate Amt Large -Exudate Type Serosanguineous -Wound Margin Thickened & Rolled Under -Granulation Amt Medium (34-66%) -Granulation Quality [place] -Slough/Fibrin Yes -Necrosis Amt Medium (34-66%) -Necrotic Tissue Type Adherent Slough -Structure Exposed N/A -Texture (Irene-wound Skin Appearance) Assessed, Scarring -Moisture (Irene-wound Skin Appearance Assessed ) -Color (Irene-wound Skin Appearance) Assessed -Temperature (Irene-wound Skin No Abnormality Appearance) (Pt Warm) -Tenderness on Palpation (Irene-wound No Skin Appearance) -Ulcer Cleansing Wound Cleanser -Foul Odor after Cleansing No -Anesthetic Used 4% Lidocaine Solution #7 RLE Ant Cluster -Combined with other wound No -Current Size (cm) - Length 4.5 -Current Size (cm) - Width 5.8 -Current Size (cm) - Depth 0.2 -Total Square Cm 26.10 -Tunneling No -Undermining/Tunneling No -Circular Undermining No -Exudate Amt Large -Exudate Type Serosanguineous -Wound Margin Thickened & Rolled Under -Granulation Amt Medium (34-66%) -Granulation Quality [place] -Slough/Fibrin Yes -Necrosis Amt Medium (34-66%) -Necrotic Tissue Type Adherent Slough -Structure Exposed N/A -Texture (Irene-wound Skin Appearance) Assessed, Scarring -Moisture (Irene-wound Skin Appearance Assessed ) -Color (Irene-wound Skin Appearance) Assessed -Temperature (Irene-wound Skin No Abnormality Appearance) (Pt Warm) -Tenderness on Palpation (Irene-wound No Skin Appearance) -Ulcer Cleansing Wound Cleanser -Foul Odor after Cleansing No -Anesthetic Used 4% Lidocaine Solution [Edema Assessment] -Lower Limb Edema Present Yes -Right Calf (cm) 70 -Right Ankle (cm) 32 02/21/20 08:20 Wound Center by Arin Delgado Pt right inner thigh reddmess and warmth noted since 02/18/20 per pt stated Initialized on 02/21/20 08:20 - END OF NOTE WC - Nurse 3 - General Ulcer D/C NN Start: 02/07/20 07:53 Freq: Status: Active Protocol: Activity Type Activity Date Activity User E-Sign Co-Sign Detail Recorded Client Recorded Date Recorded By Document 02/21/20 09:05 CHILO [id number] 02/21/20 09:06 RB 02/21/20 09:05 Wound Care Nurse 3 [Wound Dressing] #8 RLE Post -Ulcer Cleansing Rinsed/ Irrigated with Saline -Primary Dressing Applied Aquacel AG 4x4 -Primary Dressing Covered/Secured Dry Gauze,Dry with Gauze & Roll Gauze,Secured with Tape -Aquacel AG 4x4 1 #7 RLE Ant Cluster -Ulcer Cleansing Rinsed/ Irrigated with Saline -Other Dressing aquacel ag [Compression Applied] Right -Other mildred [Post Procedure Tolerated] -Treatment Response Procedure Tolerated Well Vital Signs [Blood Pressure] -Blood Pressure (90/60-120/80) 150/78 H -Blood Pressure Mean (mm Hg) 102 -Source Monitor -Position Semi-Fowlers -Blood Pressure Location Left Arm Pain Scale: 0-10 Numeric [Pain] -Is Patient Pain Free? Yes WC - Visit Discharge [Visit Discharge Information] -Discharge Condition Stable -Ambulatory Status Ambulatory -Transportation Private Auto -Medication Reconcilliation completed No & provided to patient/care provider -Clinical Summary of Care Provided Yes Musculoskeletal: Tenderness - Very sensitive to palpation/debridement of ulcers and periulcer areas. Lymphatic: - - Bilateral lower extremity lymphedema Psych/Mental Status: Normal Affect, Appropriate Debridement Note Post-Debridement Measurements/Treatment WC - Nurse 2 - General Ulcer CM Notes Start: 02/07/20 07:53 Freq: Status: Active Protocol: Activity Type Activity Date Activity User E-Sign Co-Sign Detail Recorded Client Recorded Date Recorded By Document 02/07/20 12:20 PL [id number] 02/07/20 12:27 PL Document 02/14/20 13:04 PL [id number] 02/14/20 13:08 PL 02/07/20 02/14/20 12:20 13:04 Wound Center Nurse 2 #8 RLE Post -Time 08:27 08:24 -Correct Patient Yes Yes -Correct Side, Site, Position Yes Yes -Correct Procedure Yes Yes -Procedure Performed Yes Yes -Type of Procedure Debridement Debridement -Clinical Debridement Subcutaneous Subcutaneous -Tissue Removed Subcutaneous Subcutaneous -Post Debridement (cm) - Length 8.6 8.5 -Post Debridement (cm) - Width 7.1 7.5 -Post Debridement (cm) - Depth 0.3 0.3 -Total Square (Post) (cm) 61.06 63.75 -Area of Debridement (cm) - Length 8.6 8.5 -Area of Debridement (cm) - Width 7.1 7.5 -Total Square (Area) (cm) 61.06 63.75 -Tunneling No No -Undermining/Tunneling No No -Circular Undermining No No -Wound/Ulcer Outcome Not Healed Not Healed -Ulcer Cleansing Rinsed/ Rinsed/ Irrigated with Irrigated with Saline Saline -Foul Odor after Cleansing No No -Bioengineered Tissue Yes Yes -Type of Bioengineered Tissue PuraPly AM PuraPly AM -Expiration Date 06/03/22 06/03/22 -Product Lot Number [id number] -Percent Used 100 100 -Saline Lot Number [id number] -Bleeding Controlled with Pressure Pressure -Treatment Response Procedure Tolerated Well -Debridement - Subq, 1st 20sq cm No No -Debridement, SubQ, ea addt'l 20sq cm 0 or part thereof -Apply Skin Sub - 1st 25 sq cm - Legs 1 1 -Apply Skin Sub - each addt'l 25 sq cm 2 - Legs -PuraPly AM (per sq cm) 54 54 #7 RLE Ant Cluster -Time 08:27 08:24 -Correct Patient Yes Yes -Correct Side, Site, Position Yes Yes -Correct Procedure Yes Yes -Procedure Performed Yes Yes -Type of Procedure Debridement Debridement -Clinical Debridement Subcutaneous Subcutaneous -Tissue Removed Subcutaneous Subcutaneous -Post Debridement (cm) - Length 4.0 4.0 -Post Debridement (cm) - Width 5.6 5.2 -Post Debridement (cm) - Depth 0.3 0.2 -Total Square (Post) (cm) 22.40 20.80 -Area of Debridement (cm) - Length 4.0 4.0 -Area of Debridement (cm) - Width 5.6 5.2 -Total Square (Area) (cm) 22.40 20.80 -Tunneling No No -Undermining/Tunneling No No -Circular Undermining No No -Wound/Ulcer Outcome Not Healed Not Healed -Ulcer Cleansing Rinsed/ Rinsed/ Irrigated with Irrigated with Saline Saline -Foul Odor after Cleansing No No -Bioengineered Tissue No No -Debridement - Subq, 1st 20sq cm No No -Debridement, SubQ, ea addt'l 20sq cm 0 or part thereof Pain Scale: 0-10 Numeric Is Patient Pain Free? Yes Yes WC - Nurse 3 - General Ulcer D/C NN Start: 02/07/20 07:53 Freq: Status: Active Protocol: Activity Type Activity Date Activity User E-Sign Co-Sign Detail Recorded Client Recorded Date Recorded By Document 02/07/20 12:20 PL [id number] 02/07/20 12:27 PL Document 02/14/20 09:07 DL [id number] 02/14/20 09:08 DL Document 02/21/20 09:05 RB [id number] 02/21/20 09:06 RB 02/07/20 02/14/20 02/21/20 12:20 09:07 09:05 Pain Scale: 0-10 Numeric Is Patient Pain Free? Yes Yes Yes Wound Care Nurse 3 #8 RLE Post -Ulcer Cleansing Rinsed/ Rinsed/ Irrigated with Irrigated with Saline Saline -Foul Odor after Cleansing No No -Primary Dressing Applied Aquacel AG 4x4 -Other Dressing Purply -Primary Dressing Covered/Secured with Dry Gauze, Dry Gauze, Dry Gauze,Dry Secured with Secured with Gauze & Roll Tape Tape Gauze,Secured with Tape -Aquacel AG 4x4 1 #7 RLE Ant Cluster -Ulcer Cleansing Rinsed/ Rinsed/ Rinsed/ Irrigated with Irrigated with Irrigated with Saline Saline Saline -Foul Odor after Cleansing No No -Primary Dressing Applied Aquacel AG 4x4 Aquacel AG 4x4 -Other Dressing aquacel ag -Primary Dressing Covered/Secured with Dry Gauze, Dry Gauze, Secured with Secured with Tape Tape -Aquacel AG 4x4 1 1 Right -Other mildred Treatment Response Procedure Procedure Tolerated Well Tolerated Well Vital Signs Blood Pressure (90/60-120/80) 150/78 H Blood Pressure Mean (mm Hg) 102 Source Monitor Position Semi-Fowlers Blood Pressure Location Left Arm WC - Visit Discharge Discharge Condition Stable Stable Ambulatory Status Cane Ambulatory Ambulatory Transportation Private Auto Private Auto Private Auto Medication Reconcilliation completed & No provided to patient/care provider Clinical Summary of Care Provided Yes Yes Wound debrided: RLE posterior ulcer Laterality: Right Type of Debridement: Excisional debridement Anesthesia Used: 4% Lidocaine Solution, Cetacaine Depth: in the subcutaneous layer Percentage of wound debrided: 100 Instrument Used: 7mm curette Tissue Removed: Slough and devitalized tissue Severity: Fat Layer Exposed Amount of bleeding with debridement: Mild Bleeding Controlled with: Pressure Patient did not tolerate procedure well - Additional Wound Wound debrided: RLE anterior ulcer cluster Laterality: Right Type of Debridement: Excisional debridement Anesthesia Used: 4% Lidocaine Solution, Cetacaine Depth: in the subcutaneous layer Percentage of wound debrided: 100 Instrument Used: 5mm curette Tissue Removed: Slough and devitalized tissue Severity: Fat Layer Exposed Amount of bleeding with debridement: Mild Bleeding Controlled with: Pressure Patient tolerated procedure: Patient did not tolerate procedure well Assessment/Plan Active Problems (Last Updated 01/11/18 @ 08:41 by Adeline Andres) Venous ulcer of right leg (Chronic) Cellulitis of right lower extremity (Acute) Venous insufficiency (Chronic) Morbid obesity (Chronic) Ulcer of right lower extremity with fat layer exposed (Chronic) Lymphedema (Chronic) Assessment: Right posterior lower leg ulcer. Right anterior lower leg ulcer. Left anterior lower leg ulcer - healed. Cellulitis of right lower extremity - resolved. Chronic lymphedema Plan: Debridement performed today in clinic as above; the patient does not tolerate debridement well. Given the duration of the venous ulcers and failure of the ulcers to respond to standard wound care, we have applied and been appro nirav for advanced skin substitutes. The patient was approved for Puraply and Nu- shield and Apligraf. Advanced skin substitutes will be held until cellulitis of right lower extremity is resolved. I will have patient resume daily Aquacel Ag dressing changes to the right lower extremity ulcers. At home wound-care instructions: Wash RLE ulcers thoroughly with antibacterial soap and water daily, or more often as needed due to contamination. After rinsing well and drying, apply a new Aquacel Ag dressing to each ulcer. Cover with an ABD pad or gauze to absorb excess drainage. Compression: She is encouraged to use her lymphedema pumps to help reduce swelling of her bilateral lower extremities and to elevate her legs as much as possible throughout the day. She refuses compression. Off-loading: Patient was advised to avoid pressure on her ulcer sites. She is to keep feet elevated at or above waist level when seated. She is to avoid prolonged standing, sitting or dangling of legs. When driving, she is to perform walking breaks every hour at minimum. Diet: Patient encouraged to increase protein and vitamin C intake while taking caution to avoid high carbohydrate and/or sugar intake. Labs/cultures/imaging: Lab work from [facility] has not yet been received. Blood work was ordered last week, however patient did not have this completed. Labs will be drawn today in clinic. Vascular studies from 2017 were reviewed. Wound cultures collected on 01/03/2020 were positive for 3+ Aeromonas hydrophilia/caviae, 2+ Citrobacter braakii, 1+ Proteus mirabilis, rare Staphylococus aureus, anaerobic cocci, actinomyces odontolyticus, Bacteroides fragilis; beta-lactamase positive. She was deviously started on Levaquin and Augmentin and completed a 21-day course of both of these antibiotics. Repeat cultures obtained from the right posterior leg ulcer today due to periulcer erythema, increased slough and bioburden, and medial RLE cellulitis of localized lymphedema. Patient was given prescriptions for Levaquin 750 mg p.o. once daily x7 days and Augmentin 875/125 mg p.o. every 12 hours x7 days. Antibiotics will be adjusted as needed due to culture results and patient response. Follow-up: Return to clinic in 1 week for re-evaluation with Dr. Hickey. Return sooner or report to the emergency room should symptoms worsen, or new symptoms arise. If erythema and swelling of right lower extremity does not improve with the use of antibiotics, or if it worsens at any time, or if the patient develops another fever, she is advised to report to the emergency room immediately. Note: [employer] speech recognition shotweld operator software was used to create portions of this document. Sound-alike and misspelled words, as well as other shotweld operator errors may be contained in the documentation. [id number]: [id number] Shante subq tissue 20 sq cm/< Add On Codes: 12811 Shante subq tissue add-on - x4
[2020-02-21 11:05] LABS: Hemoglobin A1c 5.4 % (3.8-5.6)
[2020-02-21 11:22] LABS: Erythrocyte Sedimentation Rate 93 mm/hr (0-30)
[2020-02-21 11:24] LABS: Absolute Lymphocyte Count 1.62 X10^3/uL (0.83-4.51); Absolute Neutrophil Count 6.6 X10^3/uL (2.0-7.7); Basophil# 0.02 X10^3/uL; Basophil% 0.2 % (0-1); Eosinophil# 0.27 X10^3/uL; Eosinophils% 2.9 % (0-5); Hematocrit 34.8 % (37-47); Hemoglobin 11.3 g/dL (12.0-15.0); Lymphocyte # 1.62 X10^3/ul (4.0); Lymphocyte % 17.5 % (19-41); Mean Corp Hgb Conc 32.5 g/dL (32-36); Mean Corpuscular Hgb 29.5 pg (27.0-32.0); Mean Corpuscular Volume 90.9 fL (81-99); Mean Platelet Vol. 12.5 fl (6.2-12.0); Monocyte# 0.73 X10^3/uL; Monocyte% 7.9 % (0-10); NRBC Flagged by Analyzer 0 % (0-5); Neutrophil # 6.56 X10^3/uL (2.7-7.7); Neutrophil % 71.1 % (47-70); Platelet Count 143 K/mm3 (150-450); RBC Distribution Width CV 13.2 % (11.6-14.6); RBC Distribution Width SD 43.5 fl (35.1-43.9); Red Blood Count 3.83 M/mm3 (4.2-5.4); White Blood Count 9.2 K/mm3 (4.4-11.0)
[2020-02-21 11:35] LABS: ALB/GLOB Ratio 0.6 RATIO (0.9-2.4); AST(SGOT) 13 U/L (15-37); Alanine Aminotransfer ALT/SGPT 21 U/L (13-56); Alkaline Phosphatase 105 U/L (45-117); Anion Gap 0 (5-15); BUN 11 mg/dL (7-18); BUN/Creat Ratio 14.9 RATIO (10-20); Calcium,Total 9.4 mg/dL (8.5-10.1); Chloride 109 mmol/L (98-107); Creatinine, Serum 0.74 mg/dL (0.55-1.02); EST Glomerular Filtration Rate 86 mL/min (>60); Est Glom Filt Rate - Afr Amer 104 mL/min (>60); Estimated Creatinine Clearance 89.61 ml/min; Globulin 4.7 g/dL (2.2-4.2); Glucose 96 mg/dL (74-106); Potassium 5.1 mmol/L (3.5-5.1); Prealbumin 18.6 mg/dL (20.0-40.0); Protein, Total 7.7 g/dL (6.4-8.2); Sodium Level 137 mmol/L (136-145)
[2020-02-28 08:03] VITALS: BP 155/64; PULSE 66; RESP 18; TEMP 36; BMI 49.0
[2020-02-28 08:49] VITALS: BP 145/75
--- NOTE | 2020-02-28 09:30 | PN.PCM_ITS ---
(1) Venous ulcer of right leg Status: Chronic Code(s): I83.019 - Varicose veins of right lower extremity with ulcer of unspecified site; L97.919 - Non-pressure chronic ulcer of unspecified part of right lower leg with unspecified severity (2) Cellulitis of right lower extremity Status: Acute Code(s): L03.115 - Cellulitis of right lower limb (3) Chronic ulcer of right thigh with fat layer exposed Status: Chronic Code(s): L97.112 - Non-pressure chronic ulcer of right thigh with fat layer exposed (4) Delayed wound healing Status: Chronic Code(s): T14.8 - Other injury of unspecified body region (5) Venous insufficiency Status: Chronic (6) Morbid obesity Status: Chronic Code(s): E66.01 - Morbid (severe) obesity due to excess calories (7) Ulcer of right lower extremity with fat layer exposed Status: Chronic Code(s): L97.912 - Non-pressure chronic ulcer of unspecified part of right lower leg with fat layer exposed (8) Lymphedema Status: Chronic Code(s): I89.0 - Lymphedema, not elsewhere classified Type of Wound Date of Service: 02/28/20 Chief Complaint: ulcers of right leg History of Wound: [facility] for evaluation and treatment of bilateral lower leg ulcers. The patient is known [facility] from treatment of prior lower extremity ulcers. She has a PMH significant for chronic lymphedema, venous insufficiency, atrial fibrillation (on Eliquis), morbid obesity, hypothyroidism. She reports development of her posterior right lower leg ulcer in April. She initially was using Manuka honey to this ulcer, but recently started using Vaseline instead. She reports her anterior right lower extremity ulcer developed in August, and she has been applying Vaseline to this daily. Her anter ior left lower extremity ulcer developed approximately 1 week ago, and she has been applying Vaseline to this daily as well. She notes that approximately 4 to 6 weeks ago the ulcer on her posterior right lower leg began increasing and soreness. She has lymphedema pumps at home, but has not been using these due to reported pain with use which is related to her ulcers. She does not use compression at home. She reports frequent dangling of her legs while seated at her computer for work. She does not frequently elevate her feet when seated. The patient denies any fever, chills, nausea, vomiting, or diarrhea. Denies any increasing pain, redness, or swelling of the affected area. She does note foul- smelling drainage from her right lower extremity. She has not been on any antibiotics recently. She reports having lab work done approximately 6 weeks ago; these records will be requested for review. She reports no change in symptoms since lab work was completed. She had lower extremity arterial studies completed 05/16/16 which showed relatively normal arterial perfusion to ankle level bilaterally. Triphasic waveforms were noted at ankle level bilaterally. Resting ankle-brachial indices were bilaterally. normal. The right digital- brachial index is normal, consistent with normal arterial perfusion at distal, small-vessel level in the right lower extremity. The left digital-brachial index is mildly diminished, suggesting the presence of mild, distal, small- vessel arterial occlusive disease in the left lower extremity. Wound cultures collected on 01/03/2020 were positive for 3+ Aeromonas hydrophilia/caviae, 2+ Citrobacter braakii, 1+ Proteus mirabilis, rare Staphylococus aureus, anaerobic cocci, actinomyces odontolyticus, Bacteroides fragilis; beta-lactamase positive. She was started on Levaquin and Augmentin. Progress of Wound: Toña returns today for follow up of ulcers of her right lower extremity. Both RLE ulcers have large amount of slough and bioburden. The posterior RLE ulcer has periulcer erythema but no warmth. She has a mass of localized lymphedema of her right medial thigh which is less red and less warm today. She notes improvement in erythema and warmth and pain of her ulcers and the lymphedema but does express concern that she may still have lingering infection. She reports a large amount of serous wound drainage from the right anterior ulcer, but does not note malodorous or purulent drainage. She has been going through approx. 6 ABD pads/day to her right ervin. Her left lower extremity ulcer remains healed per patient. She discontinued MILDRED wraps as they do not stay in place and cause her to have pain. She refused compression due to discomfort. She has been noncompliant with instructions to elevate her legs more frequently. 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 She reports she has still been unable to resume use of her lymphedema pumps due to pain related to her ulcers, though she has been continually encouraged that decreasing her swelling will likely provide pain relief and enhance/expedite wound healing. She has been trying to increase her protein intake. The patient denies any nausea, vomiting, or diarrhea. - Physical Exam Vital Signs Temp Pulse Resp BP 96.8 F L 66 18 145/75 H 02/28/20 08:03 02/28/20 08:03 02/28/20 08:03 02/28/20 08:49 General: Alert, Oriented x3, Cooperative, No apparent distress HEENT: Atraumatic, Normocephalic Oral: Moist Mucosa Neck: Supple Abdomen: Obese Extremities: No cyanosis, Edema Skin: Ulcer/ Wound Wound Measurements and Assessment WC - Nurse 1 - General Ulcer Measurement Start: 02/07/20 07:53 Freq: Status: Active Protocol: Activity Type Activity Date Activity User E-Sign Co-Sign Detail Recorded Client Recorded Date Recorded By Document 02/28/20 08:03 [id number] 02/28/20 08:10 RB 02/28/20 08:03 Wound Center Nurse 1 [Ulcer Assessment] #8 RLE Post -Combined with other wound No -Current Size (cm) - Length 8.1 -Current Size (cm) - Width 6.8 -Current Size (cm) - Depth 0.5 -Total Square Cm 55.08 -Tunneling No -Undermining/Tunneling No -Circular Undermining No -Exudate Amt Large -Exudate Type Serosanguineous -Wound Margin Thickened & Rolled Under -Granulation Amt Medium (34-66%) -Granulation Quality [place] -Slough/Fibrin Yes -Necrosis Amt Large (67-100%) -Necrotic Tissue Type Adherent Slough -Structure Exposed N/A -Texture (Irene-wound Skin Appearance) Assessed, Excoriation -Moisture (Irene-wound Skin Appearance Assessed ) -Color (Irene-wound Skin Appearance) Assessed -Temperature (Irene-wound Skin No Abnormality Appearance) (Pt Warm) -Tenderness on Palpation (Irene-wound No Skin Appearance) -Ulcer Cleansing Wound Cleanser -Foul Odor after Cleansing No -Anesthetic Used 4% Lidocaine Solution #7 RLE Ant Cluster -Combined with other wound No -Current Size (cm) - Length 3.8 -Current Size (cm) - Width 5.9 -Current Size (cm) - Depth 0.2 -Total Square Cm 22.42 -Tunneling No -Undermining/Tunneling No -Circular Undermining No -Exudate Amt Large -Exudate Type Serosanguineous -Wound Margin Thickened & Rolled Under -Granulation Amt Medium (34-66%) -Granulation Quality [place] -Slough/Fibrin Yes -Necrosis Amt Small (1-33%) -Necrotic Tissue Type Adherent Slough -Structure Exposed N/A -Texture (Irene-wound Skin Appearance) Assessed, Excoriation -Moisture (Irene-wound Skin Appearance Assessed ) -Color (Irene-wound Skin Appearance) Assessed -Temperature (Irene-wound Skin No Abnormality Appearance) (Pt Warm) -Tenderness on Palpation (Irene-wound No Skin Appearance) -Ulcer Cleansing Wound Cleanser -Foul Odor after Cleansing No -Anesthetic Used 4% Lidocaine Solution [Edema Assessment] -Lower Limb Edema Present Yes WC - Nurse 2 - General Ulcer CM Notes Start: 02/07/20 07:53 Freq: Status: Active Protocol: Activity Type Activity Date Activity User E-Sign Co-Sign Detail Recorded Client Recorded Date Recorded By Document 02/28/20 08:23 PL [id number] 02/28/20 08:38 PL 02/28/20 08:23 Wound Center Nurse 2 [Procedure/Treatment] #8 RLE Post -Time 08:20 -Correct Patient Yes -Correct Side, Site, Position Yes -Correct Procedure Yes -Procedure Performed Yes -Type of Procedure Debridement -Clinical Debridement Subcutaneous -Tissue Removed Subcutaneous -Post Debridement (cm) - Length 7.8 -Post Debridement (cm) - Width 7.3 -Post Debridement (cm) - Depth 0.2 -Total Square (Post) (cm) 56.94 -Area of Debridement (cm) - Length 7.8 -Area of Debridement (cm) - Width 7.3 -Total Square (Area) (cm) 56.94 -Tunneling No -Undermining/Tunneling No -Circular Undermining No -Wound/Ulcer Outcome Not Healed -Ulcer Cleansing Rinsed/ Irrigated with Saline -Foul Odor after Cleansing No -Bioengineered Tissue No -Debridement - Subq, 1st 20sq cm Yes -Debridement, SubQ, ea addt'l 20sq cm 2 or part thereof #7 RLE Ant Cluster -Time 08:20 -Correct Patient Yes -Correct Side, Site, Position Yes -Correct Procedure Yes -Procedure Performed Yes -Type of Procedure Debridement -Clinical Debridement Subcutaneous -Tissue Removed Subcutaneous -Post Debridement (cm) - Length 4.2 -Post Debridement (cm) - Width 5.8 -Post Debridement (cm) - Depth 0.5 -Total Square (Post) (cm) 24.36 -Area of Debridement (cm) - Length 4.2 -Area of Debridement (cm) - Width 5.8 -Total Square (Area) (cm) 24.36 -Tunneling No -Undermining/Tunneling No -Circular Undermining No -Wound/Ulcer Outcome Not Healed -Ulcer Cleansing Rinsed/ Irrigated with Saline -Foul Odor after Cleansing No -Bioengineered Tissue No -Debridement - Subq, 1st 20sq cm No -Debridement, SubQ, ea addt'l 20sq cm 1 or part thereof [See Physician Procedure note for Specifics] Pain Scale: 0-10 Numeric [Pain] -Is Patient Pain Free? Yes WC - Nurse 3 - General Ulcer D/C NN Start: 02/07/20 07:53 Freq: Status: Active Protocol: Activity Type Activity Date Activity User E-Sign Co-Sign Detail Recorded Client Recorded Date Recorded By Document 02/28/20 08:49 [id number] 02/28/20 08:51 RB 02/28/20 08:49 Wound Care Nurse 3 [Wound Dressing] #8 RLE Post -Ulcer Cleansing Rinsed/ Irrigated with Saline -Primary Dressing Applied Aquacel AG 4x4 -Primary Dressing Covered/Secured Dry Gauze,Dry with Gauze & Roll Gauze,Secured with Tape -Aquacel AG 4x4 1 #7 RLE Ant Cluster -Ulcer Cleansing Rinsed/ Irrigated with Saline -Primary Dressing Applied Hydrofera Blue Foam -Primary Dressing Covered/Secured Dry Gauze,Dry with Gauze & Roll Gauze,Secured with Tape -Hydrofera Blue Foam 1 Vital Signs [Blood Pressure] -Blood Pressure (90/60-120/80) 145/75 H -Blood Pressure Mean (mm Hg) 98 -Source Monitor -Position Semi-Fowlers -Blood Pressure Location Left Arm Pain Scale: 0-10 Numeric [Pain] -Is Patient Pain Free? Yes Teaching: Wound Center [Wound Center Education] (Items with an * have Printed Materials Available- Please identify what is given to patient under the Teaching materials given to patient and caregiver Section. Dressing Your Wound -Person Taught Patient -Teaching Method Discussion, Demonstration -Response to teaching Verbalize understanding WC - Visit Discharge [Visit Discharge Information] -Discharge Condition Stable -Ambulatory Status Ambulatory -Transportation Private Auto -Medication Reconcilliation completed No & provided to patient/care provider -Clinical Summary of Care Provided Yes Psych/Mental Status: Normal Affect, Appropriate Debridement Note Post-Debridement Measurements/Treatment WC - Nurse 2 - General Ulcer CM Notes Start: 02/07/20 07:53 Freq: Status: Active Protocol: Activity Type Activity Date Activity User E-Sign Co-Sign Detail Recorded Client Recorded Date Recorded By Document 02/07/20 12:20 PL [id number] 02/07/20 12:27 PL Document 02/14/20 13:04 PL [id number] 02/14/20 13:08 PL Document 02/21/20 14:56 PL [id number] 02/21/20 14:59 PL Document 02/28/20 08:23 PL [id number] 02/28/20 08:38 PL 02/07/20 02/14/20 02/21/20 12:20 13:04 14:56 Wound Center Nurse 2 #8 RLE Post -Time 08:27 08:24 08:29 -Correct Patient Yes Yes Yes -Correct Side, Site, Position Yes Yes Yes -Correct Procedure Yes Yes Yes -Procedure Performed Yes Yes Yes -Type of Procedure Debridement Debridement Debridement -Clinical Debridement Subcutaneous Subcutaneous Subcutaneous -Tissue Removed Subcutaneous Subcutaneous Subcutaneous -Post Debridement (cm) - Length 8.6 8.5 8 -Post Debridement (cm) - Width 7.1 7.5 7.8 -Post Debridement (cm) - Depth 0.3 0.3 0.2 -Total Square (Post) (cm) 61.06 63.75 62.4 -Area of Debridement (cm) - Length 8.6 8.5 8 -Area of Debridement (cm) - Width 7.1 7.5 7.8 -Total Square (Area) (cm) 61.06 63.75 62.4 -Tunneling No No No -Undermining/Tunneling No No No -Circular Undermining No No No -Wound/Ulcer Outcome Not Healed Not Healed Not Healed -Ulcer Cleansing Rinsed/ Rinsed/ Rinsed/ Irrigated with Irrigated with Irrigated with Saline Saline Saline -Foul Odor after Cleansing No No No -Bioengineered Tissue Yes Yes No -Type of Bioengineered Tissue PuraPly AM PuraPly AM -Expiration Date 06/03/22 06/03/22 -Product Lot Number [id number] -Percent Used 100 100 -Saline Lot Number [id number] -Bleeding Controlled with Pressure Pressure -Treatment Response Procedure Tolerated Well -Debridement - Subq, 1st 20sq cm No No No -Debridement, SubQ, ea addt'l 20sq cm 0 3 or part thereof -Apply Skin Sub - 1st 25 sq cm - Legs 1 1 -Apply Skin Sub - each addt'l 25 sq cm 2 - Legs -PuraPly AM (per sq cm) 54 54 #7 RLE Ant Cluster -Time 08:27 08:24 08:29 -Correct Patient Yes Yes Yes -Correct Side, Site, Position Yes Yes Yes -Correct Procedure Yes Yes Yes -Procedure Performed Yes Yes Yes -Type of Procedure Debridement Debridement Debridement -Clinical Debridement Subcutaneous Subcutaneous Subcutaneous -Tissue Removed Subcutaneous Subcutaneous Subcutaneous -Post Debridement (cm) - Length 4.0 4.0 4.5 -Post Debridement (cm) - Width 5.6 5.2 5.5 -Post Debridement (cm) - Depth 0.3 0.2 0.2 -Total Square (Post) (cm) 22.40 20.80 24.75 -Area of Debridement (cm) - Length 4.0 4.0 4.5 -Area of Debridement (cm) - Width 5.6 5.2 5.5 -Total Square (Area) (cm) 22.40 20.80 24.75 -Tunneling No No No -Undermining/Tunneling No No No -Circular Undermining No No No -Wound/Ulcer Outcome Not Healed Not Healed Not Healed -Ulcer Cleansing Rinsed/ Rinsed/ Rinsed/ Irrigated with Irrigated with Irrigated with Saline Saline Saline -Foul Odor after Cleansing No No No -Bioengineered Tissue No No No -Debridement - Subq, 1st 20sq cm No No Yes -Debridement, SubQ, ea addt'l 20sq cm 0 1 or part thereof Pain Scale: 0-10 Numeric Is Patient Pain Free? Yes Yes Yes 02/28/20 08:23 Wound Center Nurse 2 #8 RLE Post -Time 08:20 -Correct Patient Yes -Correct Side, Site, Position Yes -Correct Procedure Yes -Procedure Performed Yes -Type of Procedure Debridement -Clinical Debridement Subcutaneous -Tissue Removed Subcutaneous -Post Debridement (cm) - Length 7.8 -Post Debridement (cm) - Width 7.3 -Post Debridement (cm) - Depth 0.2 -Total Square (Post) (cm) 56.94 -Area of Debridement (cm) - Length 7.8 -Area of Debridement (cm) - Width 7.3 -Total Square (Area) (cm) 56.94 -Tunneling No -Undermining/Tunneling No -Circular Undermining No -Wound/Ulcer Outcome Not Healed -Ulcer Cleansing Rinsed/ Irrigated with Saline -Foul Odor after Cleansing No -Bioengineered Tissue No -Type of Bioengineered Tissue -Expiration Date -Product Lot Number -Percent Used -Saline Lot Number -Bleeding Controlled with -Treatment Response -Debridement - Subq, 1st 20sq cm Yes -Debridement, SubQ, ea addt'l 20sq cm 2 or part thereof -Apply Skin Sub - 1st 25 sq cm - Legs -Apply Skin Sub - each addt'l 25 sq cm - Legs -PuraPly AM (per sq cm) #7 RLE Ant Cluster -Time 08:20 -Correct Patient Yes -Correct Side, Site, Position Yes -Correct Procedure Yes -Procedure Performed Yes -Type of Procedure Debridement -Clinical Debridement Subcutaneous -Tissue Removed Subcutaneous -Post Debridement (cm) - Length 4.2 -Post Debridement (cm) - Width 5.8 -Post Debridement (cm) - Depth 0.5 -Total Square (Post) (cm) 24.36 -Area of Debridement (cm) - Length 4.2 -Area of Debridement (cm) - Width 5.8 -Total Square (Area) (cm) 24.36 -Tunneling No -Undermining/Tunneling No -Circular Undermining No -Wound/Ulcer Outcome Not Healed -Ulcer Cleansing Rinsed/ Irrigated with Saline -Foul Odor after Cleansing No -Bioengineered Tissue No -Debridement - Subq, 1st 20sq cm No -Debridement, SubQ, ea addt'l 20sq cm 1 or part thereof Pain Scale: 0-10 Numeric Is Patient Pain Free? Yes WC - Nurse 3 - General Ulcer D/C NN Start: 02/07/20 07:53 Freq: Status: Active Protocol: Activity Type Activity Date Activity User E-Sign Co-Sign Detail Recorded Client Recorded Date Recorded By Document 02/07/20 12:20 PL [id number] 02/07/20 12:27 PL Document 02/14/20 09:07 DL [id number] 02/14/20 09:08 DL Document 02/21/20 09:05 RB [id number] 02/21/20 09:06 RB Document 02/28/20 08:49 RB [id number] 02/28/20 08:51 RB 02/07/20 02/14/20 02/21/20 12:20 09:07 09:05 Pain Scale: 0-10 Numeric Is Patient Pain Free? Yes Yes Yes Teaching: Wound Center Dressing Your Wound -Person Taught -Teaching Method -Response to teaching Wound Care Nurse 3 #8 RLE Post -Ulcer Cleansing Rinsed/ Rinsed/ Irrigated with Irrigated with Saline Saline -Foul Odor after Cleansing No No -Primary Dressing Applied Aquacel AG 4x4 -Other Dressing Purply -Primary Dressing Covered/Secured with Dry Gauze, Dry Gauze, Dry Gauze,Dry Secured with Secured with Gauze & Roll Tape Tape Gauze,Secured with Tape -Aquacel AG 4x4 1 #7 RLE Ant Cluster -Ulcer Cleansing Rinsed/ Rinsed/ Rinsed/ Irrigated with Irrigated with Irrigated with Saline Saline Saline -Foul Odor after Cleansing No No -Primary Dressing Applied Aquacel AG 4x4 Aquacel AG 4x4 -Other Dressing aquacel ag -Primary Dressing Covered/Secured with Dry Gauze, Dry Gauze, Secured with Secured with Tape Tape -Aquacel AG 4x4 1 1 -Hydrofera Blue Foam Right -Other mildred Treatment Response Procedure Procedure Tolerated Well Tolerated Well Vital Signs Blood Pressure (90/60-120/80) 150/78 H Blood Pressure Mean (mm Hg) 102 Source Monitor Position Semi-Fowlers Blood Pressure Location Left Arm WC - Visit Discharge Discharge Condition Stable Stable Ambulatory Status Cane Ambulatory Ambulatory Transportation Private Auto Private Auto Private Auto Medication Reconcilliation completed & No provided to patient/care provider Clinical Summary of Care Provided Yes Yes 02/28/20 08:49 Pain Scale: 0-10 Numeric Is Patient Pain Free? Yes Teaching: Wound Center Dressing Your Wound -Person Taught Patient -Teaching Method Discussion, Demonstration -Response to teaching Verbalize understanding Wound Care Nurse 3 #8 RLE Post -Ulcer Cleansing Rinsed/ Irrigated with Saline -Foul Odor after Cleansing -Primary Dressing Applied Aquacel AG 4x4 -Other Dressing -Primary Dressing Covered/Secured with Dry Gauze,Dry Gauze & Roll Gauze,Secured with Tape -Aquacel AG 4x4 1 #7 RLE Ant Cluster -Ulcer Cleansing Rinsed/ Irrigated with Saline -Foul Odor after Cleansing -Primary Dressing Applied Hydrofera Blue Foam -Other Dressing -Primary Dressing Covered/Secured with Dry Gauze,Dry Gauze & Roll Gauze,Secured with Tape -Aquacel AG 4x4 -Hydrofera Blue Foam 1 Right -Other Treatment Response Vital Signs Blood Pressure (90/60-120/80) 145/75 H Blood Pressure Mean (mm Hg) 98 Source Monitor Position Semi-Fowlers Blood Pressure Location Left Arm WC - Visit Discharge Discharge Condition Stable Ambulatory Status Ambulatory Transportation Private Auto Medication Reconcilliation completed & No provided to patient/care provider Clinical Summary of Care Provided Yes Wound debrided: right posterior LE Laterality: Right Type of Debridement: Excisional debridement Anesthesia Used: 4% Lidocaine Solution, 5% Lidocaine Gel Depth: Down to and including healthy tissue, in the subcutaneous layer Percentage of wound debrided: 100 Instrument Used: 5mm curette Tissue Removed: Yellow slough, devitalized tissue Severity: Fat Layer Exposed Amount of bleeding with debridement: Mild Bleeding Controlled with: Compression and gauze Patient tolerated procedure well - Additional Wound Wound debrided: right LE anterior cluster Laterality: Right Type of Debridement: Excisional debridement Anesthesia Used: 4% Lidocaine Solution Depth: Down to and including healthy tissue, in the subcutaneous layer Percentage of wound debrided: 100 Instrument Used: 5mm curette Tissue Removed: Yellow slough, devitalized tissue Severity: Fat Layer Exposed Amount of bleeding with debridement: Mild Bleeding Controlled with: Compression and gauze Patient tolerated procedure: Patient tolerated procedure well Assessment/Plan Active Problems (Last Updated 01/11/18 @ 08:41 by Adeline Andres) Venous ulcer of right leg (Chronic) Cellulitis of right lower extremity (Acute) Chronic ulcer of right thigh with fat layer exposed (Chronic) Delayed wound healing (Chronic) Venous insufficiency (Chronic) Morbid obesity (Chronic) Ulcer of right lower extremity with fat layer exposed (Chronic) Lymphedema (Chronic) Assessment: Right posterior lower leg ulcer. Right anterior lower leg ulcer. Left anterior lower leg ulcer - healed. Cellulitis of right lower extremity - resolved. Chronic lymphedema Plan: Debridement performed today in clinic as above; the patient does not tolerate debridement well. Given the duration of the venous ulcers and failure of the ulcers to respond to standard wound care, we have applied and been approved for advanced skin substitutes. The patient was approved for Puraply and Nu-shield and Apligraf. Advanced skin substitutes will be held until cellulitis of right lower extremity is resolved. Will try treatment with Hydrofera blue to her anterior LE as well as super-absorbant dressing such as KerraMaxCare for her very very heavy drainage from the anterior ulcer. Will continue Aquacel Ag to her posterior ulcer. Would consider possible change to Fibracol in the near future to help with tissue growth, she reports mild to moderate drainage from the ulcer and Promogran or Devika are too small in size but Fibracol may help to provide collagen support to the ulcer and adequate moisture balance. At home wound-care instructions: Wash RLE ulcers thoroughly with antibacterial soap and water daily, or more often as needed due to contamination. After rinsing well and drying, apply a new Aquacel Ag dressing to posterior ulcer and hydrofera blue to anterior cluster. Cover with an ABD pad or gauze to absorb excess drainage. Compression: She is encouraged to use her lymphedema pumps to help reduce swelling of her bilateral lower extremities and to elevate her legs as much as possible throughout the day. She refuses compression. Off-loading: Patient was advised to avoid pressure on her ulcer sites. She is to keep feet elevated at or above waist level when seated. She is to avoid prolonged standing, sitting or dangling of legs. When driving, she is to perform walking breaks every hour at minimum. Diet: Patient encouraged to increase protein and vitamin C intake while taking caution to avoid high carbohydrate and/or sugar intake. Labs/cultures/imaging: Lab work from [facility] has not yet been received. Labs from 02/21/20 showed mild decrease in prealbumin but this may be because of infection, negative acute phase reactant. CRP and ESR are elevated but CBC and chemistry were unremarkable. Vascular studies from 2017 were reviewed. Wound cultures collected on 01/03/2020 were positive for 3+ Aeromonas hydrophilia/caviae, 2+ Citrobacter braakii, 1+ Proteus mirabilis, rare Staphylococus aureus, anaerobic cocci, actinomyces odontolyticus, Bacteroides fragilis; beta-lactamase positive. She was previously started on Levaquin and Augmentin and completed a 21-day course of both of these antibiotics. Wound culture results reviewed and was negative for anaerobic bacteria, aerobic culture positive for gram positive constanza, no sensitivities reported. Based on clinical improvement but incomplete resolution, patient was given refill on prescriptions for Levaquin 750 mg p.o. once daily x7 days and Augmentin 875/125 mg p.o. every 12 hours x7 days. Follow-up: Return to clinic in 1 week for re- evaluation with Lula. Return sooner or report to the emergency room should symptoms worsen, or new symptoms arise. If erythema and swelling of right lower extremity does not improve with the use of antibiotics, or if it worsens at any time, or if the patient develops another fever, she is advised to report to the emergency room immediately. Note: [employer] speech recognition mobile lounge driver or operator software was used to create portions of this document. Sound-alike and misspelled words, as well as other mobile lounge driver or operator errors may be contained in the documentation.
== END 2020-03-02 23:59 ==
LOC: WC 08:00
PROVIDERS: PCP Family Medicine; Referring Provider Family Medicine; Visit Provider Nurse Practitioner Family
DX: I83.018 Varicose veins of right lower extremity with ulcer other part of lower leg (principal); L97.812 Non-pressure chronic ulcer of other part of right lower leg with fat layer exposed; I87.2 Venous insufficiency (chronic) (peripheral); I89.0 Lymphedema, not elsewhere classified; I48.91 Unspecified atrial fibrillation; E03.9 Hypothyroidism, unspecified; Z79.01 Long term (current) use of anticoagulants; E66.01 Morbid (severe) obesity due to excess calories; Z79.899 Other long term (current) drug therapy
CPT/HCPCS: 11042; 11045; 15271; 15272; 80053; 83036; 84134; 85025; 85652; 86140; 87070; 87075; 87205; Q4196

== ENCOUNTER 2020-03-31 09:00 | Outpatient (RCR) | payer MEDICAID, SELFPAY ==
[2020-03-03 00:11] VITALS: BP 145/75; PULSE 66; RESP 18; TEMP 36
[2020-03-06 08:10] VITALS: BP 152/80; PULSE 76; RESP 18; TEMP 36.4; BMI 49.0
--- NOTE | 2020-03-06 11:38 | PN.PCM_ITS ---
(1) Venous ulcer of right leg Status: Chronic Code(s): I83.019 - Varicose veins of right lower extremity with ulcer of unspecified site; L97.919 - Non-pressure chronic ulcer of unspecified part of right lower leg with unspecified severity (2) Ulcer of right lower extremity with fat layer exposed Status: Chronic Code(s): L97.912 - Non-pressure chronic ulcer of unspecified part of right lower leg with fat layer exposed (3) Venous insufficiency Status: Chronic (4) Cellulitis of right lower extremity Status: Acute Code(s): L03.115 - Cellulitis of right lower limb (5) Lymphedema Status: Chronic Code(s): I89.0 - Lymphedema, not elsewhere classified (6) Morbid obesity Status: Chronic Code(s): E66.01 - Morbid (severe) obesity due to excess calories Type of Wound Date of Service: 03/06/20 Chief Complaint: ulcers of right leg History of Wound: [facility] for evaluation and treatment of bilateral lower leg ulcers. The patient is [facility] treatment of prior lower extremity ulcers. She has a PMH significant for chronic lymphedema, venous insufficiency, atrial fibrillation (on Eliquis), morbid obesity, hypothyroidism. She reports development of her posterior right lower leg ulcer in April. She initially was using Manuka honey to this ulcer, but recently started using Vaseline instead. She reports her anterior right lower extremity ulcer developed in August, and she has been applying Vaseline to this daily. Her anterior left lower extremity ulcer developed approximately 1 week ago, and she has been applying Vaseline to this daily as well. She notes that approximately 4 to 6 weeks ago the ulcer on her posterior right lower leg began increasing and soreness. She has lymphedema pumps at home, but has not been using these due to reported pain with use which is related to her ulcers. She does not use com pression at home. She reports frequent dangling of her legs while seated at her computer for work. She does not frequently elevate her feet when seated. The patient denies any fever, chills, nausea, vomiting, or diarrhea. Denies any increasing pain, redness, or swelling of the affected area. She does note foul- smelling drainage from her right lower extremity. She has not been on any antibiotics recently. She reports having lab work done approximately 6 weeks ago; these records will be requested for review. She reports no change in symptoms since lab work was completed. She had lower extremity arterial studies completed 05/16/16 which showed relatively normal arterial perfusion to ankle level bilaterally. Triphasic waveforms were noted at ankle level bilaterally. Resting ankle-brachial indices were bilaterally. normal. The right digital- brachial index is normal, consistent with normal arterial perfusion at distal, small-vessel level in the right lower extremity. The left digital-brachial index is mildly diminished, suggesting the presence of mild, distal, small- vessel arterial occlusive disease in the left lower extremity. Wound cultures collected on 01/03/2020 were positive for 3+ Aeromonas hydrophilia/caviae, 2+ Citrobacter braakii, 1+ Proteus mirabilis, rare Staphylococus aureus, anaerobic cocci, actinomyces odontolyticus, Bacteroides fragilis; beta-lactamase positive. She was started on Levaquin and Augmentin. Progress of Wound: Toña returns today for follow up of ulcers of her right lower extremity. Both RLE ulcers have large amount of slough and bioburden. The posterior RLE periulcer erythema has resolved. She has a mass of localized lymphedema of her right medial thigh which is less red and less warm today. She notes improvement in erythema, warmth, and pain of her ulcers and lymphedema. She saw Dr. Hickey last week and her Levaquin and Augmentin were extended for an additional 7 days (for a total of 14 days for this course). She reports a large amount of serous wound drainage from the right anterior ulcer, but does not note malodorous or purulent drainage. Her left lower extremity ulcer remains healed per patient. She discontinued MILDRED wraps as they do not stay in place and cause her to have pain. She refused compression due to discomfort. She has been noncompliant with instructions to elevate her legs more frequently. 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 She reports she has still been unable to resume use of her lymphedema pumps due to pain related to her ulcers, though she has been continually encouraged that decreasing her swelling will likely provide pain relief and enhance/expedite wound healing. She has been trying to increase her protein intake. The patient denies any nausea, vomiting, or diarrhea. She denies fever or chills. - Physical Exam Vital Signs Temp Pulse Resp BP 97.6 F L 76 18 152/80 H 03/06/20 08:10 03/06/20 08:10 03/06/20 08:10 03/06/20 08:10 General: Alert, Cooperative, No apparent distress HEENT: Atraumatic, Normocephalic Oral: Moist Mucosa Neck: Supple, Trachea Midline Lungs: Normal air movement Abdomen: Obese Extremities: No clubbing, No cyanosis, Capillary Refill Less than 3 Seconds, Diminished Peripheral Pulses, Edema - 2+ pitting edema of bilateral lower extremities, as well as lymphedema of bilateral lower extremities Skin: Ulcer/ Wound - Ulcers of right lower extremity with subcutaneous layer exposed. Large amounts of slough and devitalized tissue are present on both ulcers. Periulcer erythema of the posterior RLE ulcer has resolved. No malodor. No purulent drainage. Copious amounts of serous drainage from anterior RLE ulcer., Rash Present - Erythema and warmth of mass of localized lymphedema of right medial thigh has improved. There is mild dryness and scaling of skin. Wound Measurements and Assessment WC - Nurse 1 - General Ulcer Measurement Start: 03/06/20 08:08 Freq: Status: Active Protocol: Activity Type Activity Date Activity User E-Sign Co-Sign Detail Recorded Client Recorded Date Recorded By Document 03/06/20 08:10 [facility] [id number] 03/06/20 08:17 [facility] 03/06/20 08:10 [facility] Nurse 1 [Ulcer Assessment] #8 RLE Post -Combined with other wound No -Current Size (cm) - Length 8 -Current Size (cm) - Width 6 -Current Size (cm) - Depth 0.5 -Total Square Cm 48 -Photo Taken No -Epithelialization None Present -Tunneling No -Undermining/Tunneling No -Circular Undermining No -Exudate Amt Large -Exudate Type Serosanguineous -Wound Margin Distinct, Outline Attached -Granulation Amt Small (1-33%) -Granulation Quality Red -Slough/Fibrin Yes -Necrosis Amt Large (67-100%) -Necrotic Tissue Type Adherent Slough -Texture (Irene-wound Skin Appearance) Assessed, Scarring -Moisture (Irene-wound Skin Appearance Assessed ) -Color (Irene-wound Skin Appearance) Assessed -Temperature (Irene-wound Skin No Abnormality Appearance) (Pt Warm) -Tenderness on Palpation (Irene-wound Yes Skin Appearance) -Ulcer Cleansing Rinsed/ Irrigated with Saline -Foul Odor after Cleansing No -Anesthetic Used 4% Lidocaine Solution #7 RLE Ant Cluster -Combined with other wound No -Current Size (cm) - Length 4.2 -Current Size (cm) - Width 5.8 -Current Size (cm) - Depth 0.2 -Total Square Cm 24.36 -Photo Taken No -Epithelialization None Present -Tunneling No -Undermining/Tunneling No -Circular Undermining No -Exudate Amt Large -Exudate Type Serosanguineous -Wound Margin Distinct, Outline Attached -Granulation Amt Small (1-33%) -Granulation Quality Red -Slough/Fibrin Yes -Necrosis Amt Large (67-100%) -Necrotic Tissue Type Adherent Slough -Texture (Irene-wound Skin Appearance) Assessed, Scarring -Moisture (Irene-wound Skin Appearance Assessed ) -Color (Irene-wound Skin Appearance) Assessed -Temperature (Irene-wound Skin No Abnormality Appearance) (Pt Warm) -Tenderness on Palpation (Irene-wound No Skin Appearance) -Ulcer Cleansing Rinsed/ Irrigated with Saline -Foul Odor after Cleansing No -Anesthetic Used 4% Lidocaine Solution [Edema Assessment] -Lower Limb Edema Present Yes -Right Calf (cm) 68.6 -Right Ankle (cm) 24 - Nurse 3 - General Ulcer D/C NN Start: 03/06/20 08:08 Freq: Status: Active Protocol: Activity Type Activity Date Activity User E-Sign Co-Sign Detail Recorded Client Recorded Date Recorded By Document 03/06/20 09:18 ASH[facility] [id number] 03/06/20 09:19 03/06/20 09:18 Wound Care Nurse 3 [Wound Dressing] #8 RLE Post -Ulcer Cleansing Rinsed/ Irrigated with Saline -Foul Odor after Cleansing No -Primary Dressing Covered/Secured Dry Gauze, with Secured with Tape #7 RLE Ant Cluster -Ulcer Cleansing Rinsed/ Irrigated with Saline -Foul Odor after Cleansing No -Primary Dressing Applied Aquacel AG 4x4 -Primary Dressing Covered/Secured Dry Gauze, with Secured with Tape -Aquacel AG 4x4 1 Pain Scale: 0-10 Numeric [Pain] -Is Patient Pain Free? Yes - Visit Discharge [Visit Discharge Information] -Discharge Condition Stable -Ambulatory Status Ambulatory -Transportation Private Auto -Medication Reconcilliation completed Yes & provided to patient/care provider -Clinical Summary of Care Provided Yes Musculoskeletal: Tenderness - On palpation/debridement, especially of the anterior RLE ulcer Psych/Mental Status: Normal Affect, Appropriate Debridement Note Post-Debridement Measurements/Treatment - Nurse 3 - General Ulcer D/C NN Start: 03/06/20 08:08 Freq: Status: Active Protocol: Activity Type Activity Date Activity User E-Sign Co-Sign Detail Recorded Client Recorded Date Recorded By Document 03/06/20 09:18 ASHLY [id number] 03/06/20 09:19 ASHLY 03/06/20 09:18 Wound Care Nurse 3 #8 RLE Post -Ulcer Cleansing Rinsed/ Irrigated with Saline -Foul Odor after Cleansing No -Primary Dressing Covered/Secured with Dry Gauze, Secured with Tape #7 RLE Ant Cluster -Ulcer Cleansing Rinsed/ Irrigated with Saline -Foul Odor after Cleansing No -Primary Dressing Applied Aquacel AG 4x4 -Primary Dressing Covered/Secured with Dry Gauze, Secured with Tape -Aquacel AG 4x4 1 Pain Scale: 0-10 Numeric Is Patient Pain Free? Yes - Visit Discharge Discharge Condition Stable Ambulatory Status Ambulatory Transportation Private Auto Medication Reconcilliation completed & Yes provided to patient/care provider Clinical Summary of Care Provided Yes Wound debrided: RLE posterior Laterality: Right Type of Debridement: Excisional debridement Anesthesia Used: 4% Lidocaine Solution, Cetacaine Depth: in the subcutaneous layer Percentage of wound debrided: 100 Instrument Used: 7mm curette Tissue Removed: Copious amounts of slough and devitalized tissue Severity: Fat Layer Exposed Amount of bleeding with debridement: Mild Bleeding Controlled with: Pressure Patient tolerated procedure well - Additional Wound Wound debrided: RLE anterior ulcer cluster Laterality: Right Type of Debridement: Excisional debridement Anesthesia Used: 4% Lidocaine Solution, Cetacaine Depth: in the subcutaneous layer Percentage of wound debrided: 100 Instrument Used: 7mm curette Tissue Removed: Copious amounts of slough and devitalized tissue Severity: Fat Layer Exposed Amount of bleeding with debridement: Mild Bleeding Controlled with: Pressure Patient tolerated procedure: Patient did not tolerate procedure well Assessment/Plan Active Problems (Last Updated 01/11/18 @ 08:41 by Adeline Andres) Venous ulcer of right leg (Chronic) Cellulitis of right lower extremity (Acute) Venous insufficiency (Chronic) Morbid obesity (Chronic) Ulcer of right lower extremity with fat layer exposed (Chronic) Lymphedema (Chronic) Assessment: Right posterior lower leg ulcer. Right anterior lower leg ulcer. Left anterior lower leg ulcer - healed. Cellulitis of right lower extremity. Chronic lymphedema Plan: Debridement performed today in clinic as above; the patient does not tolerate debridement well. Given the duration of the venous ulcers and failure of the ulcers to respond to standard wound care, we have applied and been approved for advanced skin substitutes. The patient was approved for Puraply and Nu-shield and Apligraf. Given the improvement in the cellulitis of the right lower extremity, I feel it is appropriate to resume the use of advanced skin substitutes. Puraply #5 was applied to the posterior RLE ulcer, covered with a wound veil and secured with Steri-Strips. Aquacel Ag was applied to the anterior RLE ulcer. At home wound-care instructions: Keep posterior RLE ulcer dressing clean and dry; cover when showering. Leave posterior RLE ulcer dressing intact until wound center appointment next week. Wash anterior RLE ulcers thoroughly with antibacterial soap and water daily, or more often as needed due to contamination. After rinsing well and drying, apply a new Aquacel Ag dressing to anterior RLE ulcer cluster. Supersorb or other absorbent dressing will be ordered to aid in management of copious amounts of serous drainage. Compression: We discussed at length the importance of using her lymphedema pumps to help reduce swelling of her bilateral lower extremities and promote wound healing. She was offered a referral to the lymphedema clinic, but declined stating she would reach out to the lymphedema clinic in [place] where she had previously been seen. She was again instructed to elevate her legs as m uch as possible throughout the day. She refuses compression. Off-loading: Patient was advised to avoid pressure on her ulcer sites. She is to keep feet elevated at or above waist level when seated. She is to avoid prolonged standing, sitting or dangling of legs. When driving, she is to perform walking breaks every hour at minimum. Diet: Patient encouraged to increase protein and vitamin C intake while taking caution to avoid high carbohydrate and/or sugar intake. Labs/cultures/imaging: Labs from 02/21/20 showed mild decrease in prealbumin but this may be because of infection, negative acute phase reactant. CRP and ESR are elevated but CBC and chemistry were unremarkable. Vascular studies from 2017 were reviewed. Wound cultures collected on 01/03/2020 were positive for 3+ Aeromonas hydrophilia/caviae, 2+ Citrobacter braakii, 1+ Proteus mirabilis, rare Staphylococus aureus, anaerobic cocci, actinomyces odontolyticus, Bacteroides fragilis; beta-lactamase positive. She was previousl y started on Levaquin and Augmentin and completed a 21-day course of both of these antibiotics. Repeat wound culture results from 02/21/2020 reviewed and were negative for anaerobic bacteria; aerobic culture positive for very rare gram positive constanza, no sensitivities reported. Patient has one more day of a 14- day course of Levaquin 750 mg p.o. once daily and Augmentin 875/125 mg p.o. every 12 hours. Follow-up: Return to clinic in 1 week for re-evaluation. Return sooner or report to the emergency room should symptoms worsen, or new symptoms arise. Note: [employer] speech recognition waiter/waitress dining car software was used to create portions of this document. Sound-alike and misspelled words, as well as other waiter/waitress dining car errors may be contained in the documentation. [id number]: [id number] Skin sub graft trnk/arm/leg
[2020-03-13 08:05] VITALS: BP 159/92; PULSE 63; TEMP 35.6; BMI 49.0
--- NOTE | 2020-03-13 11:56 | PN.PCM_ITS ---
(1) Venous ulcer of right leg Status: Chronic Code(s): I83.019 - Varicose veins of right lower extremity with ulcer of unspecified site; L97.919 - Non-pressure chronic ulcer of unspecified part of right lower leg with unspecified severity (2) Ulcer of right lower extremity with fat layer exposed Status: Chronic Code(s): L97.912 - Non-pressure chronic ulcer of unspecified part of right lower leg with fat layer exposed (3) Venous insufficiency Status: Chronic (4) Cellulitis of right lower extremity Status: Acute Code(s): L03.115 - Cellulitis of right lower limb (5) Lymphedema Status: Chronic Code(s): I89.0 - Lymphedema, not elsewhere classified (6) Morbid obesity Status: Chronic Code(s): E66.01 - Morbid (severe) obesity due to excess calories Type of Wound Date of Service: 03/13/20 Chief Complaint: ulcers of right leg History of Wound: [facility] for evaluation and treatment of bilateral lower leg ulcers. The patient is [facility] treatment of prior lower extremity ulcers. She has a PMH significant for chronic lymphedema, venous insufficiency, atrial fibrillation (on Eliquis), morbid obesity, hypothyroidism. She reports development of her posterior right lower leg ulcer in April. She initially was using Manuka honey to this ulcer, but recently started using Vaseline instead. She reports her anterior right lower extremity ulcer developed in August, and she has been applying Vaseline to this daily. Her ante rior left lower extremity ulcer developed approximately 1 week ago, and she has been applying Vaseline to this daily as well. She notes that approximately 4 to 6 weeks ago the ulcer on her posterior right lower leg began increasing in soreness. She has lymphedema pumps at home, but has not been using these due to reported pain with use which is related to her ulcers. She does not use compression at home. She reports frequent dangling of her legs while seated at her computer for work. She does not frequently elevate her feet when seated. The patient denies any fever, chills, nausea, vomiting, or diarrhea. Denies any increasing pain, redness, or swelling of the affected area. She does note foul- smelling drainage from her right lower extremity. She has not been on any antibiotics recently. She reports having lab work done approximately 6 weeks ago; these records will be requested for review. She reports no change in symptoms since lab work was completed. She had lower extremity arterial studies completed 05/16/16 which showed relatively normal arterial perfusion to ankle level bilaterally. Triphasic waveforms were noted at ankle level bilaterally. Resting ankle-brachial indices were bilaterally. normal. The right digital- brachial index is normal, consistent with normal arterial perfusion at distal, small-vessel level in the right lower extremity. The left digital-brachial index is mildly diminished, suggesting the presence of mild, distal, small- vessel arterial occlusive disease in the left lower extremity. Wound cultures collected on 01/03/2020 were positive for 3+ Aeromonas hydrophilia/caviae, 2+ Citrobacter braakii, 1+ Proteus mirabilis, rare Staphylococus aureus, anaerobic cocci, actinomyces odontolyticus, Bacteroides fragilis; beta-lactamase positive. She was started on Levaquin and Augmentin. Progress of Wound: Toña returns today for follow up of ulcers of her right lower extremity. Anterior RLE ulcers have large amount of slough and bioburden. Posterior RLE ulcer has a moderate amount of slough and bioburden. The posterior RLE periulcer erythema has resolved. She had a mass of localized lymphedema of her right medial thigh that was red and warm; this has resolved following a 14-day course of Levaquin and Augmentin. She has begun using her lymphedema pumps again intermittently as tolerated. She reports a significant decrease in the amount of serous wound drainage from the right anterior ulcer, and reports her dressings have been dry and adherent to her right lower extremity anterior ulcer in the last week. Her left lower extremity ulcer remains healed per patient. She discontinued MILDRED wraps as they do not stay in place and cause her to have pain. She refused compression due to discomfort. She has been somewhat more compliant with instructions to elevate her legs more frequently. 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 She has been trying to increase her protein intake. The patient denies any nausea, vomiting, or diarrhea. She denies fever or chills. - Physical Exam Vital Signs Temp Pulse Resp BP 96.1 F L 63 18 159/92 H 03/13/20 08:05 03/13/20 08:05 03/06/20 08:10 12/11/20 08:05 General: Alert, Cooperative, No apparent distress HEENT: Atraumatic, Normocephalic Oral: Moist Mucosa Neck: Supple, Trachea Midline Lungs: Normal air movement Abdomen: Obese Extremities: No clubbing, No cyanosis, Capillary Refill Less than 3 Seconds, Diminished Peripheral Pulses, Edema - 1+ pitting edema bilateral lower extremities, as well as lymphedema of bilateral lower extremities Skin: No rashes, Ulcer/ Wound - Ulcers of right lower extremity with subcutaneous layer exposed. Anterior RLE ulcers with large amount of slough and devitalized tissue present. Posterior RLE ulcer with moderate amount of slough and devitalized tissue present. No malodor. No purulent drainage. Anterior RLE ulcer is dry today. Wound Measurements and Assessment WC - Nurse 1 - General Ulcer Measurement Start: 03/06/20 08:08 Freq: Status: Active Protocol: Activity Type Activity Date Activity User E-Sign Co-Sign Detail Recorded Client Recorded Date Recorded By Document 03/13/20 08:05 [id number] 03/13/20 08:12 DL 03/13/20 08:05 Wound Center Nurse 1 [Ulcer Assessment] #8 RLE Post -Current Size (cm) - Length 8.2 -Current Size (cm) - Width 6.8 -Current Size (cm) - Depth 0.5 -Total Square Cm 55.76 -Exudate Amt Medium -Exudate Type Serosanguineous -Wound Margin Distinct, Outline Attached -Granulation Amt Medium (34-66%) -Granulation Quality Red -Necrosis Amt Large (67-100%) -Necrotic Tissue Type Adherent Slough -Texture (Irene-wound Skin Appearance) Assessed, Scarring -Moisture (Irene-wound Skin Appearance Assessed,Dry/ ) Scaly -Color (Irene-wound Skin Appearance) No Abnormality, Assessed -Temperature (Irene-wound Skin No Abnormality Appearance) (Pt Warm) -Tenderness on Palpation (Irene-wound No Skin Appearance) -Ulcer Cleansing soap and water -Foul Odor after Cleansing No -Anesthetic Used 4% Lidocaine Solution #7 RLE Ant Cluster -Current Size (cm) - Length 4 -Current Size (cm) - Width 6.3 -Current Size (cm) - Depth 0.3 -Total Square Cm 25.2 -Exudate Amt Small -Exudate Type Serosanguineous -Wound Margin Distinct, Outline Attached -Granulation Amt Small (1-33%) -Granulation Quality Red -Slough/Fibrin Yes -Necrosis Amt Large (67-100%) -Necrotic Tissue Type Adherent Slough -Texture (Irene-wound Skin Appearance) Assessed -Moisture (Irene-wound Skin Appearance No Abnormality, ) Assessed -Color (Irene-wound Skin Appearance) No Abnormality, Assessed -Temperature (Irene-wound Skin No Abnormality Appearance) (Pt Warm) -Tenderness on Palpation (Irene-wound No Skin Appearance) -Ulcer Cleansing soap and water -Foul Odor after Cleansing No -Anesthetic Used 4% Lidocaine Solution WC - Nurse 3 - General Ulcer D/C NN Start: 03/06/20 08:08 Freq: Status: Active Protocol: Activity Type Activity Date Activity User E-Sign Co-Sign Detail Recorded Client Recorded Date Recorded By Document 03/13/20 08:57 KR [id number] 03/13/20 09:09 KR 03/13/20 08:57 Wound Care Nurse 3 [Wound Dressing] #8 RLE Post -Ulcer Cleansing Rinsed/ Irrigated with Saline -Foul Odor after Cleansing No -Negative Pressure Wound Therapy N/A -Primary Dressing Covered/Secured Dry Gauze & with Roll Gauze, Secured with Tape Pain Scale: 0-10 Numeric [Pain] -Is Patient Pain Free? Yes WC - Visit Discharge [Visit Discharge Information] -Discharge Condition Stable -Ambulatory Status Ambulatory -Transportation Private Auto Musculoskeletal: Tenderness - On palpation/debridement Psych/Mental Status: Normal Affect, Appropriate Debridement Note Post-Debridement Measurements/Treatment CHRISTIANNE - Nurse 2 - General Ulcer CM Notes Start: 03/06/20 08:08 Freq: Status: Active Protocol: Activity Type Activity Date Activity User E-Sign Co-Sign Detail Recorded Client Recorded Date Recorded By Document 03/06/20 12:25 PL [id number] 03/06/20 12:32 PL 03/06/20 12:25 Wound Center Nurse 2 #8 RLE Post -Time 08:30 -Correct Patient Yes -Correct Side, Site, Position Yes -Correct Procedure Yes -Procedure Performed Yes -Type of Procedure Debridement -Clinical Debridement Subcutaneous -Tissue Removed Subcutaneous -Post Debridement (cm) - Length 8 -Post Debridement (cm) - Width 6 -Post Debridement (cm) - Depth 0.5 -Total Square (Post) (cm) 48 -Area of Debridement (cm) - Length 8 -Area of Debridement (cm) - Width 6 -Total Square (Area) (cm) 48 -Tunneling No -Undermining/Tunneling No -Circular Undermining No -Wound/Ulcer Outcome Not Healed -Ulcer Cleansing Rinsed/ Irrigated with Saline -Foul Odor after Cleansing No -Bioengineered Tissue Yes -Type of Bioengineered Tissue PuraPly AM -Expiration Date 01/03/22 -Product Lot Number [id number] -Percent Used 100 -Saline Lot Number [id number] -Bleeding Controlled with Pressure -Treatment Response Procedure Tolerated Well -Debridement - Subq, 1st 20sq cm No -Apply Skin Sub - 1st 25 sq cm - Legs 1 -PuraPly AM (per sq cm) 54 #7 RLE Ant Cluster -Time 08:30 -Correct Patient Yes -Correct Side, Site, Position Yes -Correct Procedure Yes -Procedure Performed Yes -Type of Procedure Debridement -Clinical Debridement Subcutaneous -Tissue Removed Subcutaneous -Post Debridement (cm) - Length 4.2 -Post Debridement (cm) - Width 5.8 -Post Debridement (cm) - Depth 0.2 -Total Square (Post) (cm) 24.36 -Area of Debridement (cm) - Length 4.2 -Area of Debridement (cm) - Width 9.8 -Total Square (Area) (cm) 41.16 -Tunneling No -Undermining/Tunneling No -Circular Undermining No -Wound/Ulcer Outcome Not Healed -Ulcer Cleansing Rinsed/ Irrigated with Saline -Foul Odor after Cleansing No -Bioengineered Tissue No -Debridement - Subq, 1st 20sq cm Yes Pain Scale: 0-10 Numeric Is Patient Pain Free? Yes WC - Nurse 3 - General Ulcer D/C NN Start: 03/06/20 08:08 Freq: Status: Active Protocol: Activity Type Activity Date Activity User E-Sign Co-Sign Detail Recorded Client Recorded Date Recorded By Document 03/06/20 09:18 ASHLY [id number] 03/06/20 09:19 JF Document 03/13/20 08:57 KR [id number] 03/13/20 09:09 KR 03/06/20 03/13/20 09:18 08:57 Wound Care Nurse 3 #8 RLE Post -Ulcer Cleansing Rinsed/ Rinsed/ Irrigated with Irrigated with Saline Saline -Foul Odor after Cleansing No No -Negative Pressure Wound Therapy N/A -Primary Dressing Covered/Secured with Dry Gauze, Dry Gauze & Secured with Roll Gauze, Tape Secured with Tape #7 RLE Ant Cluster -Ulcer Cleansing Rinsed/ Irrigated with Saline -Foul Odor after Cleansing No -Primary Dressing Applied Aquacel AG 4x4 -Primary Dressing Covered/Secured with Dry Gauze, Secured with Tape -Aquacel AG 4x4 1 Pain Scale: 0-10 Numeric Is Patient Pain Free? Yes Yes WC - Visit Discharge Discharge Condition Stable Stable Ambulatory Status Ambulatory Ambulatory Transportation Private Auto Private Auto Medication Reconcilliation completed & Yes provided to patient/care provider Clinical Summary of Care Provided Yes Wound debrided: RLE posterior Laterality: Right Type of Debridement: Excisional debridement Anesthesia Used: 4% Lidocaine Solution, Cetacaine Depth: in the subcutaneous layer Percentage of wound debrided: 100 Instrument Used: 5mm curette Tissue Removed: Slough and devitalized tissue Severity: Fat Layer Exposed Amount of bleeding with debridement: Moderate Bleeding Controlled with: Pressure Patient did not tolerate procedure well - Additional Wound Wound debrided: RLE anterior ulcer cluster Laterality: Right Type of Debridement: Excisional debridement Anesthesia Used: 4% Lidocaine Solution, Cetacaine Depth: in the subcutaneous layer Percentage of wound debrided: 100 Instrument Used: 5mm curette Tissue Removed: Slough and devitalized tissue Severity: Fat Layer Exposed Amount of bleeding with debridement: Mild Bleeding Controlled with: Pressure Patient tolerated procedure: Patient did not tolerate procedure well Assessment/Plan Active Problems (Last Updated 01/11/18 @ 08:41 by Adeline Andres) Venous ulcer of right leg (Chronic) Cellulitis of right lower extremity (Acute) Venous insufficiency (Chronic) Morbid obesity (Chronic) Ulcer of right lower extremity with fat layer exposed (Chronic) Lymphedema (Chronic) Assessment: Right posterior lower leg ulcer. Right anterior lower leg ulcer. Left anterior lower leg ulcer - healed. Cellulitis of right lower extremity. Chronic lymphedema Plan: Debridement performed today in clinic as above; the patient does not tolerate debridement well. Given the duration of the venous ulcers and failure of the ulcers to respond to standard wound care, we have applied and been approved for advanced skin substitutes. The patient was approved for Puraply and Nu-shield and Apligraf. Puraply #6 was applied to the posterior RLE ulcer, covered with a wound veil and secured with Steri-Strips. 100% of the product was used. Medihoney was applied to the anterior RLE ulcer. At home wound-care instructions: Keep posterior RLE ulcer dressing clean and dry; cover when showering. Leave posterior RLE ulcer dressing intact until wound center appointment next week. Wash anterior RLE ulcers thoroughly with antibacterial soap and water daily, or more often as needed due to contamination. After rinsing well and drying, apply Medihoney to anterior RLE ulcer cluster. Compression: We have discussed at length numerous times the importance of using her lymphedema pumps to help reduce swelling of her bilateral lower extremities and promote wound healing. She was offered a referral to the lymphedema clinic, but declined stating she would reach out to the lymphedema clinic in [place] where she had previously been seen. She has resumed the use of her lymphedema pumps intermittently and as tolerated. She was again instructed to elevate her legs as much as possible throughout the day. She refuses compression. Off- loading: Patient was advised to avoid pressure on her ulcer sites. She is to keep feet elevated at or above waist level when seated. She is to avoid prolonged standing, sitting or dangling of legs. When driving, she is to perform walking breaks every hour at minimum. Diet: Patient encouraged to increase protein and vitamin C intake while taking caution to avoid high carbohydrate and/or sugar intake. Labs/cultures/imaging: Labs from 02/21/20 showed mild decrease in prealbumin but this may be because of infection, negative acute phase reactant. CRP and ESR are elevated but CBC and chemistry were unremarkable. Vascular studies from 2017 were reviewed. Wound cultures collected on 01/03/2020 were positive for 3+ Aeromonas hydrophilia/caviae, 2+ Citrobacter braakii, 1+ Proteus mirabilis, rare Staphylococus aureus, anaerobic cocci, actinomyces odontolyticus, Bacteroides fragilis; beta-lactamase positive. She was previously started on Levaquin and Augmentin and completed a 21-day course of both of these antibiotics. Repeat wound culture results from 02/21/2020 reviewed and were negative for anaerobic bacteria; aerobic culture positive for very rare gram positive constanza, no sensitivities reported. Patient completed an additional 14-day course of Levaquin and Augmentin. Her cellulitis has resolved. Follow-up: Return to clinic in 1 week for re-evaluation. Return sooner or report to the emergency room should symptoms worsen, or new symptoms arise. If patient is able to appropriately and accurately apply Medihoney to RLE anterior ulcer cluster, we will consider the use of Santyl. Due to poor tolerance of debridement in clinic, I feel enzymatic debridement would be of great benefit; however, I have concerns about patient's ability to avoid Santyl on healthy tissue. Note: [employer] speech recognition shovel log loader operator software was used to create portions of this document. Sound-alike and misspelled words, as well as other shovel log loader operator errors may be contained in the documentation. [id number]: [id number] Skin sub graft trnk/arm/leg
[2020-03-20 08:42] VITALS: BP 145/75; PULSE 74; TEMP 36.2; BMI 49.0
--- NOTE | 2020-03-20 13:30 | PCM.WC.PN ---
(1) Venous ulcer of right leg Status: Chronic Code(s): I83.019 - Varicose veins of right lower extremity with ulcer of unspecified site; L97.919 - Non-pressure chronic ulcer of unspecified part of right lower leg with unspecified severity (2) Ulcer of right lower extremity with fat layer exposed Status: Chronic Code(s): L97.912 - Non-pressure chronic ulcer of unspecified part of right lower leg with fat layer exposed (3) Venous insufficiency Status: Chronic (4) Cellulitis of right lower extremity Status: Acute Code(s): L03.115 - Cellulitis of right lower limb (5) Lymphedema Status: Chronic Code(s): I89.0 - Lymphedema, not elsewhere classified (6) Morbid obesity Status: Chronic Code(s): E66.01 - Morbid (severe) obesity due to excess calories Type of Wound Date of Service: 03/20/20 Chief Complaint: ulcers of right leg History of Wound: [facility] for evaluation and treatment of bilateral lower leg ulcers. The patient is [facility] treatment of prior lower extremity ulcers. She has a PMH significant for chronic lymphedema, venous insufficiency, atrial fibrillation (on Eliquis), morbid obesity, hypothyroidism. She reports development of her posterior right lower leg ulcer in April. She initially was using Manuka honey to this ulcer, but recently started using Vaseline instead. She reports her anterior right lower extremity ulcer developed in August, and she has been applying Vaseline to this daily. Her anterior left lower extremity ulcer developed approximately 1 week ago, and she has been applying Vaseline to this daily as well. She notes that approximately 4 to 6 weeks ago the ulcer on her posterior right lower leg began increasing in soreness. She has lymphedema pumps at home, but has not been using these due to reported pain with use which is related to her ulcers. She does not use compression at home. She reports frequent dangling of her legs while seated at her computer for work. She does not frequently elevate her feet when seated. The patient denies any fever, chills, nausea, vomiting, or diarrhea. Denies any increasing pain, redness, or swelling of the affected area. She does note foul-smelling drainage from her right lower extremity. She has not been on any antibiotics recently. She reports having lab work done approximately 6 weeks ago; these records will be requested for review. She reports no change in symptoms since lab work was completed. She had lower extremity arterial studies completed 05/16/16 which showed relatively normal arterial perfusion to ankle level bilaterally. Triphasic waveforms were noted at ankle level bilaterally. Resting ankle-brachial indices were bilaterally. normal. The right digital-brachial index is normal, consistent with normal arterial perfusion at distal, small-vessel level in the right lower extremity. The left digital-brachial index is mildly diminished, suggesting the presence of mild, distal, small-vessel arterial occlusive disease in the left lower extremity. Wound cultures collected on 01/03/2020 were positive for 3+ Aeromonas hydrophilia/caviae, 2+ Citrobacter braakii, 1+ Proteus mirabilis, rare Staphylococus aureus, anaerobic cocci, actinomyces odontolyticus, Bacteroides fragilis; beta-lactamase positive. She was started on Levaquin and Augmentin. Progress of Wound: Toña returns today for follow up of ulcers of her right lower extremity. She states she is unable to get Medihoney covered by her insurance and it is too expensive OTC. She had enough to get her through the past week. Both anterior and posterior RLE ulcers have large amount of slough and bioburden. The posterior RLE periulcer erythema remains resolved. She had a mass of localized lymphedema of her right medial thigh that was red and warm; this has resolved following a 14-day course of Levaquin and Augmentin. She continues using her lymphedema pumps intermittently as tolerated, though only for 20-30 mins at a time. She denies any purulent/malodorous drainage from her ulcers. He denies fever, chills, nausea, vomiting or diarrhea. Her left lower extremity ulcer remains healed per patient. She discontinued MILDRED wraps as they do not stay in place and cause her to have pain. She refused compression due to discomfort. She has been somewhat more compliant with instructions to elevate her legs more frequently. 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 She has been trying to increase her protein intake. - Physical Exam Vital Signs Temp Pulse Resp BP 97.2 F L 74 18 145/75 H 03/20/20 08:42 03/20/20 08:42 03/06/20 08:10 03/20/20 08:42 General: Alert, No apparent distress HEENT: Atraumatic, Normocephalic Oral: Moist Mucosa Neck: Supple, Trachea Midline Lungs: Normal air movement Abdomen: Obese Extremities: Capillary Refill Less than 3 Seconds, Diminished Peripheral Pulses, Edema - 2+ pitting edema of BLE, - - Lymphedema of BLE Skin: Ulcer/ Wound - Is a right lower extremity with subcutaneous layer exposed. Both RLE ulcers have large amounts of slough and devitalized tissue present. No malodor. No purulent drainage. Wound Measurements and Assessment WC - Nurse 1 - General Ulcer Measurement Start: 03/06/20 08:08 Freq: Status: Active Protocol: Activity Type Activity Date Activity User E-Sign Co-Sign Detail Recorded Client Recorded Date Recorded By Document 03/20/20 08:42 RAMON [id number] 03/20/20 08:54 RAMON 03/20/20 08:42 Wound Center Nurse 1 [Ulcer Assessment] #8 RLE Post -Current Size (cm) - Length 9 -Current Size (cm) - Width 7.5 -Current Size (cm) - Depth 0.5 -Total Square Cm 67.5 -Exudate Amt Medium -Exudate Type Serosanguineous -Wound Margin Distinct, Outline Attached -Granulation Amt Medium (34-66%) -Granulation Quality Red -Necrosis Amt Medium (34-66%) -Necrotic Tissue Type Adherent Slough -Texture (Irene-wound Skin Appearance) Assessed, Scarring -Moisture (Irene-wound Skin Appearance Assessed,Dry/ ) Scaly -Temperature (Irene-wound Skin No Abnormality Appearance) (Pt Warm) -Tenderness on Palpation (Irene-wound No Skin Appearance) -Ulcer Cleansing Rinsed/ Irrigated with Saline -Foul Odor after Cleansing No -Anesthetic Used 4% Lidocaine Solution #7 RLE Ant Cluster -Current Size (cm) - Length 5.5 -Current Size (cm) - Width 0.8 -Current Size (cm) - Depth 0.3 -Total Square Cm 4.40 -Exudate Amt Large -Exudate Type Yellow/Green -Wound Margin Distinct, Outline Attached -Granulation Amt Medium (34-66%) -Granulation Quality Red -Necrosis Amt Medium (34-66%) -Necrotic Tissue Type Adherent Slough -Texture (Irene-wound Skin Appearance) Assessed, Scarring -Moisture (Irene-wound Skin Appearance No Abnormality, ) Assessed -Color (Irene-wound Skin Appearance) No Abnormality, Assessed -Temperature (Irene-wound Skin No Abnormality Appearance) (Pt Warm) -Ulcer Cleansing Rinsed/ Irrigated with Saline -Foul Odor after Cleansing No -Anesthetic Used 4% Lidocaine Solution WC - Nurse 2 - General Ulcer CM Notes Start: 03/06/20 08:08 Freq: Status: Active Protocol: Activity Type Activity Date Activity User E-Sign Co-Sign Detail Recorded Client Recorded Date Recorded By Document 03/20/20 10:44 PL [id number] 03/20/20 10:50 PL 03/20/20 10:44 Wound Center Nurse 2 [Procedure/Treatment] #8 RLE Post -Time 09:15 -Correct Patient Yes -Correct Side, Site, Position Yes -Correct Procedure Yes -Procedure Performed Yes -Type of Procedure Debridement -Clinical Debridement Subcutaneous -Tissue Removed Subcutaneous -Post Debridement (cm) - Length 8 -Post Debridement (cm) - Width 8.5 -Post Debridement (cm) - Depth 0.5 -Total Square (Post) (cm) 68.0 -Area of Debridement (cm) - Length 8 -Area of Debridement (cm) - Width 8.5 -Total Square (Area) (cm) 68.0 -Tunneling No -Undermining/Tunneling No -Circular Undermining No -Wound/Ulcer Outcome Not Healed -Ulcer Cleansing Rinsed/ Irrigated with Saline -Foul Odor after Cleansing No -Bioengineered Tissue No -Debridement - Subq, 1st 20sq cm No -Debridement, SubQ, ea addt'l 20sq cm 3 or part thereof #7 RLE Ant Cluster -Time 09:15 -Correct Patient Yes -Correct Side, Site, Position Yes -Correct Procedure Yes -Procedure Performed Yes -Type of Procedure Debridement -Clinical Debridement Subcutaneous -Tissue Removed Subcutaneous -Post Debridement (cm) - Length 4.5 -Post Debridement (cm) - Width 7 -Post Debridement (cm) - Depth 0.3 -Total Square (Post) (cm) 31.5 -Area of Debridement (cm) - Length 4.5 -Area of Debridement (cm) - Width 7 -Total Square (Area) (cm) 31.5 -Tunneling No -Undermining/Tunneling No -Circular Undermining No -Wound/Ulcer Outcome Not Healed -Ulcer Cleansing Rinsed/ Irrigated with Saline -Foul Odor after Cleansing No -Bioengineered Tissue No -Bleeding Controlled with Pressure -Debridement - Subq, 1st 20sq cm Yes -Debridement, SubQ, ea addt'l 20sq cm 1 or part thereof [See Physician Procedure note for Specifics] Pain Scale: 0-10 Numeric [Pain] -Is Patient Pain Free? Yes - Nurse 3 - General Ulcer D/C NN Start: 03/06/20 08:08 Freq: Status: Active Protocol: Activity Type Activity Date Activity User E-Sign Co-Sign Detail Recorded Client Recorded Date Recorded By Document 03/20/20 09:[address] [facility] [id number] 03/20/20 09:[address] [facility] 03/20/20 09:56 Wound Care Nurse 3 [Wound Dressing] #8 RLE Post -Ulcer Cleansing Rinsed/ Irrigated with Saline -Foul Odor after Cleansing No -Primary Dressing Applied Aquacel AG 4x4 -Primary Dressing Covered/Secured Secured with with Tape,Other -Other Covering abd -Aquacel AG 4x4 1 #7 RLE Ant Cluster -Ulcer Cleansing Rinsed/ Irrigated with Saline -Foul Odor after Cleansing No -Primary Dressing Applied Aquacel AG 4x4 -Primary Dressing Covered/Secured Dry Gauze & with Roll Gauze, Secured with Tape -Aquacel AG 4x4 0 [Post Procedure Tolerated] -Treatment Response Procedure Tolerated Well Pain Scale: 0-10 Numeric [Pain] -Is Patient Pain Free? Yes - Visit Discharge [Visit Discharge Information] -Discharge Condition Stable -Ambulatory Status Ambulatory,Cane -Transportation Private Auto Musculoskeletal: Tenderness - On palpation/debridement Psych/Mental Status: Normal Affect, Appropriate Debridement Note Post-Debridement Measurements/Treatment - Nurse 2 - General Ulcer CM Notes Start: 03/06/20 08:08 Freq: Status: Active Protocol: Activity Type Activity Date Activity User E-Sign Co-Sign Detail Recorded Client Recorded Date Recorded By Document 03/06/20 12:25 PL [id number] 03/06/20 12:32 PL Document 03/13/20 18:07 PL [id number] 03/13/20 18:12 PL Document 03/20/20 10:44 PL [id number] 03/20/20 10:50 PL 03/06/20 03/13/20 03/20/20 12:25 18:07 10:44 Wound Center Nurse 2 #8 RLE Post -Time 08: 08:29 09:15 -Correct Patient Yes Yes Yes -Correct Side, Site, Position Yes Yes Yes -Correct Procedure Yes Yes Yes -Procedure Performed Yes Yes Yes -Type of Procedure Debridement Debridement Debridement -Clinical Debridement Subcutaneous Subcutaneous Subcutaneous -Tissue Removed Subcutaneous Subcutaneous Subcutaneous -Post Debridement (cm) - Length 8 8.2 8 -Post Debridement (cm) - Width 6 6.8 8.5 -Post Debridement (cm) - Depth 0.5 0.5 0.5 -Total Square (Post) (cm) 48 55.76 68.0 -Area of Debridement (cm) - Length 8 8.2 8 -Area of Debridement (cm) - Width 6 6.8 8.5 -Total Square (Area) (cm) 48 55.76 68.0 -Tunneling No No No -Undermining/Tunneling No No No -Circular Undermining No No No -Wound/Ulcer Outcome Not Healed Not Healed Not Healed -Ulcer Cleansing Rinsed/ Rinsed/ Rinsed/ Irrigated with Irrigated with Irrigated with Saline Saline Saline -Foul Odor after Cleansing No No No -Bioengineered Tissue Yes Yes No -Type of Bioengineered Tissue PuraPly AM PuraPly AM -Expiration Date 01/03/22 06/03/22 -Product Lot Number [id number] -Percent Used 100 100 -Saline Lot Number [id number] -Bleeding Controlled with Pressure Pressure -Treatment Response Procedure Procedure Tolerated Well Tolerated Well -Debridement - Subq, 1st 20sq cm No No No -Debridement, SubQ, ea addt'l 20sq cm 3 or part thereof -Apply Skin Sub - 1st 25 sq cm - Legs 1 1 -Apply Skin Sub - each addt'l 25 sq cm 2 - Legs -PuraPly AM (per sq cm) 54 54 #7 RLE Ant Cluster -Time 08:30 08:29 09:15 -Correct Patient Yes Yes Yes -Correct Side, Site, Position Yes Yes Yes -Correct Procedure Yes Yes Yes -Procedure Performed Yes Yes Yes -Type of Procedure Debridement Debridement Debridement -Clinical Debridement Subcutaneous Subcutaneous Subcutaneous -Tissue Removed Subcutaneous Subcutaneous Subcutaneous -Post Debridement (cm) - Length 4.2 4 4.5 -Post Debridement (cm) - Width 5.8 6.3 7 -Post Debridement (cm) - Depth 0.2 0.3 0.3 -Total Square (Post) (cm) 24.36 25.2 31.5 -Area of Debridement (cm) - Length 4.2 4 4.5 -Area of Debridement (cm) - Width 9.8 6.3 7 -Total Square (Area) (cm) 41.16 25.2 31.5 -Tunneling No No No -Undermining/Tunneling No No No -Circular Undermining No No No -Wound/Ulcer Outcome Not Healed Not Healed Not Healed -Ulcer Cleansing Rinsed/ Rinsed/ Rinsed/ Irrigated with Irrigated with Irrigated with Saline Saline Saline -Foul Odor after Cleansing No No No -Bioengineered Tissue No No No -Bleeding Controlled with Pressure -Debridement - Subq, 1st 20sq cm Yes No Yes -Debridement, SubQ, ea addt'l 20sq cm 1 or part thereof Pain Scale: 0-10 Numeric Is Patient Pain Free? Yes Yes Yes WC - Nurse 3 - General Ulcer D/C NN Start: 03/06/20 08:08 Freq: Status: Active Protocol: Activity Type Activity Date Activity User E-Sign Co-Sign Detail Recorded Client Recorded Date Recorded By Document 03/06/20 09:18 [id number] 03/06/20 09:19 Document 03/13/20 08:57 [id number] 03/13/20 09:09 KR Document 03/20/20 09:[address] [facility] [id number] 03/20/20 09:[address] [facility] 03/06/20 03/13/20 03/20/20 09:18 08:57 09:56 Wound Care Nurse 3 #8 RLE Post -Ulcer Cleansing Rinsed/ Rinsed/ Rinsed/ Irrigated with Irrigated with Irrigated with Saline Saline Saline -Foul Odor after Cleansing No No No -Negative Pressure Wound Therapy N/A -Primary Dressing Applied Aquacel AG 4x4 -Primary Dressing Covered/Secured with Dry Gauze, Dry Gauze & Secured with Secured with Roll Gauze, Tape,Other Tape Secured with Tape -Other Covering abd -Aquacel AG 4x4 1 #7 RLE Ant Cluster -Ulcer Cleansing Rinsed/ Rinsed/ Irrigated with Irrigated with Saline Saline -Foul Odor after Cleansing No No -Primary Dressing Applied Aquacel AG 4x4 Aquacel AG 4x4 -Primary Dressing Covered/Secured with Dry Gauze, Dry Gauze & Secured with Roll Gauze, Tape Secured with Tape -Aquacel AG 4x4 1 0 Treatment Response Procedure Tolerated Well Pain Scale: 0-10 Numeric Is Patient Pain Free? Yes Yes Yes WC - Visit Discharge Discharge Condition Stable Stable Stable Ambulatory Status Ambulatory Ambulatory Ambulatory,Cane Transportation Private Auto Private Auto Private Auto Medication Reconcilliation completed & Yes provided to patient/care provider Clinical Summary of Care Provided Yes Wound debrided: RLE posterior Laterality: Right Type of Debridement: Excisional debridement Anesthesia Used: 4% Lidocaine Solution, Cetacaine Depth: in the subcutaneous layer Percentage of wound debrided: 100 Instrument Used: 7mm curette Tissue Removed: Slough and devitalized tissue Severity: Fat Layer Exposed Amount of bleeding with debridement: Mild Bleeding Controlled with: Pressure Patient did not tolerate procedure well - Additional Wound Wound debrided: RLE anterior ulcer cluster Laterality: Right Type of Debridement: Excisional debridement Anesthesia Used: 4% Lidocaine Solution, Cetacaine Depth: in the subcutaneous layer Percentage of wound debrided: 100 Instrument Used: 7mm curette Tissue Removed: Slough in devitalized tissue Severity: Fat Layer Exposed Amount of bleeding with debridement: Mild Bleeding Controlled with: Pressure Patient tolerated procedure: Patient did not tolerate procedure well Assessment/Plan Active Problems (Last Updated 01/11/18 @ 08:41 by Adeline Andres) Venous ulcer of right leg (Chronic) Cellulitis of right lower extremity (Acute) Venous insufficiency (Chronic) Morbid obesity (Chronic) Ulcer of right lower extremity with fat layer exposed (Chronic) Lymphedema (Chronic) Assessment: Right posterior lower leg ulcer. Right anterior lower leg ulcer. Left anterior lower leg ulcer - healed. Cellulitis of right lower extremity. Chronic lymphedema Plan: Debridement performed today in clinic as above; the patient does not tolerate debridement well. Given the duration of the venous ulcers and failure of the ulcers to respond to standard wound care, we have applied and been approved for advanced skin substitutes. The patient was approved for Puraply and Nu-shield and Apligraf. Puraply #6 was removed from the posterior RLE ulcer. The patient's RLE ulcers are not improving in size, and I feel this is primarily due to patient's inability to tolerate thorough debridement, as well as her refusal to appropriately utilize compression. I discussed these factors at length with the patient and discussed the option of undergoing a surgical debridement to reduce the amount of devitalized tissue and bioburden present. She states she does not have anyone who could take her to have this procedure done, as she would not be able to drive, thus does not feel this is a realistic option for her. We also discussed enzymatic debridement using Santyl, but the patient feels she is unable to visualize/access her wounds to appropriately apply Santyl. We will resume use of Aquacel Ag dressings daily, to be used as a wet-to-dry dressing to help with removal of devitalized tissue. At home wound-care instructions: Wash RLE ulcers thoroughly with antibacterial soap and water daily, or more often as needed due to contamination. After rinsing well and drying, apply new Aquacel Ag dressing as directed. Compression: We have discussed at length numerous times the importance of using her lymphedema pumps to help reduce swelling of her bilateral lower extremities and promote wound healing. She was offered a referral to the lymphedema clinic, but had declined stating she would reach out to the lymphedema clinic in [place] where she had previously been seen. She has resumed the use of her lymphedema pumps intermittently and as tolerated, though she is only able to use them for 20 to 30 minutes at a time. She was again instructed to elevate her legs as much as possible throughout the day. She refuses compression. Off-loading: Patient was advised to avoid pressure on her ulcer sites. She is to keep feet elevated at or above waist level when seated. She is to avoid prolonged standing, sitting or dangling of legs. When driving, she is to perform walking breaks every hour at minimum. Diet: Patient encouraged to increase protein and vitamin C intake while taking caution to avoid high carbohydrate and/or sugar intake. Labs/cultures/imaging: Labs from 02/21/20 showed mild decrease in prealbumin but this may be because of infection, negative acute phase reactant. CRP and ESR are elevated but CBC and chemistry were unremarkable. Vascular studies from 2017 were reviewed. Wound cultures collected on 01/03/2020 were positive for 3+ Aeromonas hydrophilia/caviae, 2+ Citrobacter braakii, 1+ Proteus mirabilis, rare Staphylococus aureus, anaerobic cocci, actinomyces odontolyticus, Bacteroides fragilis; beta-lactamase positive. She was previously started on Levaquin and Augmentin and completed a 21-day course of both of these antibiotics. Repeat wound culture results from 02/21/2020 reviewed and were negative for anaerobic bacteria; aerobic culture positive for very rare gram positive constanza, no sensitivities reported. Patient completed an additional 14-day course of Levaquin and Augmentin. Her cellulitis has resolved. Follow-up: Return to clinic in 1-2 weeks for re-evaluation. Return sooner or report to the emergency room should symptoms worsen, or new symptoms arise. Note: [employer] speech recognition reaming machine operator software was used to create portions of this document. Sound-alike and misspelled words, as well as other reaming machine operator errors may be contained in the documentation. [id number]: [id number] Shante subq tissue 20 sq cm/< Add On Codes: 87746 Shante subq tissue add-on - x4
[2020-03-31 09:09] VITALS: BP 158/71; PULSE 68; TEMP 35.8; BMI 49.0
--- NOTE | 2020-03-31 12:58 | HP.PCM_ITS ---
(1) Lymphedema Status: Chronic Code(s): I89.0 - Lymphedema, not elsewhere classified (2) Morbid obesity Status: Chronic Code(s): E66.01 - Morbid (severe) obesity due to excess calories (3) Ulcer of right lower extremity with fat layer exposed Status: Chronic Code(s): L97.912 - Non-pressure chronic ulcer of unspecified part of right lower leg with fat layer exposed (4) Venous insufficiency Status: Chronic (5) Venous ulcer of right leg Status: Chronic Code(s): I83.019 - Varicose veins of right lower extremity with ulcer of unspecified site; L97.919 - Non-pressure chronic ulcer of unspecified part of right lower leg with unspecified severity (6) Delayed wound healing Status: Chronic Code(s): T14.8 - Other injury of unspecified body region (7) Hypothyroidism Status: Chronic Qualifiers: Hypothyroidism type: unspecified Qualified Code(s): E03.9 - Hypothyroidism, unspecified Code(s): E03.9 - Hypothyroidism, unspecified (8) Leg swelling Status: Chronic Code(s): M79.89 - Other specified soft tissue disorders (9) Leg edema Status: Chronic Code(s): R60.0 - Localized edema (10) Dependent edema Status: Chronic Code(s): R60.9 - Edema, unspecified (11) Chronic venous insufficiency Status: Chronic Code(s): I87.2 - Venous insufficiency (chronic) (peripheral) History of Present Illness Date of Service: 03/31/20 Chief Complaint: Severe swelling, edema, and lymphedema of the lower extremities with ulcerations of the right lower extremity. History of Wound: This is a 59-year-old morbidly obese female with severe chronic swelling, edema, and lymphedema in her lower extremities. She has ulcerations in the right lower extremity which have been present for several months. She has a history of similar ulcerations in the past. She claims to sleep in a recumbent position at night on a flat mattress. She spends a great deal of each day sitting idly, either sitting at her computer for work or drivin g her vehicle. She has a PMH significant for chronic lymphedema, venous insufficiency, atrial fibrillation (on Eliquis), morbid obesity, hypothyroidism. She has previously utilized manuka honey and Vaseline topically. Her most recent management has included the use of Aquacel Silver topically. She has clinical, pneumatic lymphedema pumps at home, but has not been using these due to reported pain with use which is related to her ulcers. She has been advised to maintain adequate amounts of compression to her lower extremities, but she has been noncompliant. She does not frequently elevate her legs, despite advisement to do so. She had lower extremity arterial studies completed 05/16/16 which showed relatively normal arterial perfusion to ankle level bilaterally. Triphasic waveforms were noted at ankle level bilaterally. Resting ankle- brachial indices were bilaterally. normal. The right digital-brachial index was normal, consistent with normal arterial perfusion at distal, small-vessel level in the right lower extremity. The left digital-brachial index ws mildly diminished, suggesting the presence of mild, distal, small-vessel arterial occlusive disease in the left lower extremity. A venous duplex examination from several years ago documented the presence of superficial chronic venous insufficiency. Past Medical History Past Medical History: Chronic Problems (Last Updated 01/11/18 @ 08:41 by Adeline Andres) Venous ulcer of left leg (Chronic) Venous ulcer of right leg (Chronic) Leg swelling (Chronic) Leg edema (Chronic) Dependent edema (Chronic) Chronic venous insufficiency (Chronic) Hypothyroidism (Chronic) Chronic ulcer of right thigh with fat layer exposed (Chronic) Delayed wound healing (Chronic) Tinea unguium (Chronic) Venous insufficiency (Chronic) Morbid obesity (Chronic) Venous ulcer of leg (Chronic) right leg Ulcer of right lower extremity with fat layer exposed (Chronic) Lymphedema (Chronic) Right leg pain (Chronic) Malnutrition (Chronic) Surgical History: noncontributory, hysterectomy, - - D & C Allergies/Adverse Reactions: Allergies adhesive tape Allergy (Unknown, Verified 01/03/20 08:46) Unknown Home Medications: Ambulatory Orders Medication Instructions Recorded Carvedilol [Coreg] 25 mg PO BID 10/15/14 Losartan Potassium [Cozaar] 25 mg PO DAILY 10/15/14 Multivit-Min/Iron/Folic/Lutein 1 ea PO DAILY 05/11/16 [Centrum Silver Women Tablet] apixaban 5 mg tablet 5 mg PO BID 01/11/18 bupropion HCl 150 mg 24 hr tablet, 300 mg PO QAM tab 01/11/18 extended release levothyroxine 175 mcg tablet 175 mcg PO .COMPLEX #48 tab 01/11/18 - Family History Maternal Family History: Family History (Last Reviewed 01/11/18 @ 08:28 by Adeline Andres) Mother Colon cancer Father Melanoma - - family history includes cancer, hyperlipidemia, hypertension, polio Lives: Alone Smoking Status: Never smoker Tobacco Use: Non-smoker Drugs: None Review of Systems Constitutional: Denies: Chills, Fever, Weight Change Eyes: Denies: Pain, Vision Change HEENT: Denies: Difficulty Hearing, Difficulty Swallowing, Sinus Congestion Cardiovascular: Denies: Chest Pain, Palpitations Respiratory: Denies: Cough, Shortness of Breath Gastrointestinal: Denies: Diarrhea, Nausea, Vomiting Genitourinary: Denies: Dysuria, Hematuria Endocrine: Denies: Heat/ Cold Intolerance, Polydipsia, Polyuria Hematologic/ Lymphatic: Denies: Easy Bruising, Easy Bleeding - Physical Exam Vital Signs Temp Pulse Resp BP 96.5 F L 68 18 158/71 H 03/31/20 09:09 03/31/20 09:09 03/06/20 08:10 03/31/20 09:09 General: Alert, Oriented x3, Cooperative, No apparent distress, Well developed, Well nourished, - - Patient is morbidly obese. HEENT: Atraumatic, PERRLA, EOMI, Normocephalic Oral: Moist Mucosa Neck: No JVD Lungs: Normal air movement Abdomen: Non-Distended Extremities: No clubbing, No cyanosis, No Calf Tenderness, - - Severe bilateral lower extremity swelling, edema, and lymphedema are noted. Addt'l Wound Findings: Large ulcerations are noted on the right pretibial area and on the right posterior calf. Dimensions are documented elsewhere. There is a large amount of necrotic and nonviable tissue present. Chronic skin changes are noted as well, namely hyperpigmentation. Wound Measurements and Assessment WC - Nurse 1 - General Ulcer Measurement Start: 03/06/20 08:08 Freq: Status: Active Protocol: Activity Type Activity Date Activity User E-Sign Co-Sign Detail Recorded Client Recorded Date Recorded By Document 03/31/20 09:09 KR [id number] 03/31/20 09:16 KR 03/31/20 09:09 Wound Center Nurse 1 [Ulcer Assessment] #8 RLE Post -Current Size (cm) - Length 9 -Current Size (cm) - Width 6.8 -Current Size (cm) - Depth 0.3 -Total Square Cm 61.2 -Exudate Amt Large -Exudate Type Serosanguineous -Wound Margin Distinct, Outline Attached -Granulation Amt Small (1-33%) -Granulation Quality Red -Necrosis Amt Large (67-100%) -Necrotic Tissue Type Adherent Slough -Texture (Irene-wound Skin Appearance) Assessed, Scarring -Moisture (Irene-wound Skin Appearance No Abnormality, ) Assessed -Color (Irene-wound Skin Appearance) No Abnormality, Assessed -Temperature (Irene-wound Skin No Abnormality Appearance) (Pt Warm) -Tenderness on Palpation (Irene-wound No Skin Appearance) -Ulcer Cleansing soap and water -Foul Odor after Cleansing No -Anesthetic Used 4% Lidocaine Solution #7 RLE Ant Cluster -Current Size (cm) - Length 5.2 -Current Size (cm) - Width 6.5 -Current Size (cm) - Depth 0.2 -Total Square Cm 33.80 -Exudate Amt Medium -Exudate Type Serosanguineous -Wound Margin Distinct, Outline Attached -Granulation Amt Medium (34-66%) -Granulation Quality Red -Necrosis Amt Medium (34-66%) -Necrotic Tissue Type Adherent Slough -Texture (Irene-wound Skin Appearance) Assessed, Scarring -Moisture (Irene-wound Skin Appearance No Abnormality, ) Assessed -Color (Irene-wound Skin Appearance) No Abnormality, Assessed -Temperature (Irene-wound Skin No Abnormality Appearance) (Pt Warm) -Ulcer Cleansing Rinsed/ Irrigated with Saline -Foul Odor after Cleansing No -Anesthetic Used 4% Lidocaine Solution WC - Nurse 2 - General Ulcer CM Notes Start: 03/06/20 08:08 Freq: Status: Active Protocol: Activity Type Activity Date Activity User E-Sign Co-Sign Detail Recorded Client Recorded Date Recorded By Document 03/31/20 10:29 PL [id number] 03/31/20 10:31 PL 03/31/20 10:29 Wound Center Nurse 2 [Procedure/Treatment] #8 RLE Post -Time 09:20 -Correct Patient Yes -Correct Side, Site, Position Yes -Correct Procedure Yes -Procedure Performed Yes -Type of Procedure Debridement -Clinical Debridement Subcutaneous -Tissue Removed Subcutaneous -Post Debridement (cm) - Length 9 -Post Debridement (cm) - Width 6.8 -Post Debridement (cm) - Depth 0.2 -Total Square (Post) (cm) 61.2 -Area of Debridement (cm) - Length 9 -Area of Debridement (cm) - Width 6.8 -Total Square (Area) (cm) 61.2 -Tunneling No -Undermining/Tunneling No -Circular Undermining No -Wound/Ulcer Outcome Not Healed -Ulcer Cleansing Rinsed/ Irrigated with Saline -Foul Odor after Cleansing No -Bioengineered Tissue No -Bleeding Controlled with Pressure -Treatment Response Procedure Tolerated Well -Debridement - Subq, 1st 20sq cm No -Debridement, SubQ, ea addt'l 20sq cm 3 or part thereof #7 RLE Ant Cluster -Time 09:20 -Correct Patient Yes -Correct Side, Site, Position Yes -Correct Procedure Yes -Procedure Performed Yes -Type of Procedure Debridement -Clinical Debridement Subcutaneous -Tissue Removed Subcutaneous -Post Debridement (cm) - Length 5.2 -Post Debridement (cm) - Width 6.5 -Post Debridement (cm) - Depth 0.2 -Total Square (Post) (cm) 33.80 -Area of Debridement (cm) - Length 5.2 -Area of Debridement (cm) - Width 6.5 -Total Square (Area) (cm) 33.80 -Tunneling No -Undermining/Tunneling No -Circular Undermining No -Wound/Ulcer Outcome Not Healed -Ulcer Cleansing Rinsed/ Irrigated with Saline -Foul Odor after Cleansing No -Bioengineered Tissue No -Bleeding Controlled with Pressure -Treatment Response Procedure Tolerated Well -Debridement - Subq, 1st 20sq cm Yes -Debridement, SubQ, ea addt'l 20sq cm 1 or part thereof [See Physician Procedure note for Specifics] Pain Scale: 0-10 Numeric [Pain] -Is Patient Pain Free? Yes WC - Nurse 3 - General Ulcer D/C NN Start: 03/06/20 08:08 Freq: Status: Active Protocol: Activity Type Activity Date Activity User E-Sign Co-Sign Detail Recorded Client Recorded Date Recorded By Document 03/31/20 10:00 RAMON [id number] 03/31/20 10:01 RAMON 03/31/20 10:00 Wound Care Nurse 3 [Wound Dressing] #8 RLE Post -Ulcer Cleansing Rinsed/ Irrigated with Saline -Foul Odor after Cleansing No -Primary Dressing Covered/Secured Dry Gauze, with Secured with Tape #7 RLE Ant Cluster -Ulcer Cleansing Rinsed/ Irrigated with Saline -Foul Odor after Cleansing No -Primary Dressing Covered/Secured Dry Gauze, with Secured with Tape Pain Scale: 0-10 Numeric [Pain] -Is Patient Pain Free? Yes WC - Visit Discharge [Visit Discharge Information] -Discharge Condition Stable -Ambulatory Status Ambulatory -Transportation Private Auto Musculoskeletal: No Muscle Wasting Neurological: Cranial nerves II-XII grossly intact, Neuro grossly intact Psych/Mental Status: Normal Affect, Appropriate, Alert and oriented to time, place, person, mood and affect Debridement Note Post-Debridement Measurements/Treatment WC - Nurse 2 - General Ulcer CM Notes Start: 03/06/20 08:08 Freq: Status: Active Protocol: Activity Type Activity Date Activity User E-Sign Co-Sign Detail Recorded Client Recorded Date Recorded By Document 03/06/20 12:25 PL [id number] 03/06/20 12:32 PL Document 03/13/20 18:07 PL [id number] 03/13/20 18:12 PL Document 03/20/20 10:44 PL [id number] 03/20/20 10:50 PL Document 03/31/20 10:29 PL [id number] 03/31/20 10:31 PL 03/06/20 03/13/20 03/20/20 12:25 18:07 10:44 Wound Center Nurse 2 #8 RLE Post -Time 08:30 08:29 09:15 -Correct Patient Yes Yes Yes -Correct Side, Site, Position Yes Yes Yes -Correct Procedure Yes Yes Yes -Procedure Performed Yes Yes Yes -Type of Procedure Debridement Debridement Debridement -Clinical Debridement Subcutaneous Subcutaneous Subcutaneous -Tissue Removed Subcutaneous Subcutaneous Subcutaneous -Post Debridement (cm) - Length 8 8.2 8 -Post Debridement (cm) - Width 6 6.8 8.5 -Post Debridement (cm) - Depth 0.5 0.5 0.5 -Total Square (Post) (cm) 48 55.76 68.0 -Area of Debridement (cm) - Length 8 8.2 8 -Area of Debridement (cm) - Width 6 6.8 8.5 -Total Square (Area) (cm) 48 55.76 68.0 -Tunneling No No No -Undermining/Tunneling No No No -Circular Undermining No No No -Wound/Ulcer Outcome Not Healed Not Healed Not Healed -Ulcer Cleansing Rinsed/ Rinsed/ Rinsed/ Irrigated with Irrigated with Irrigated with Saline Saline Saline -Foul Odor after Cleansing No No No -Bioengineered Tissue Yes Yes No -Type of Bioengineered Tissue PuraPly AM PuraPly AM -Expiration Date 01/03/22 06/03/22 -Product Lot Number [id number] -Percent Used 100 100 -Saline Lot Number [id number] -Bleeding Controlled with Pressure Pressure -Treatment Response Procedure Procedure Tolerated Well Tolerated Well -Debridement - Subq, 1st 20sq cm No No No -Debridement, SubQ, ea addt'l 20sq cm 3 or part thereof -Apply Skin Sub - 1st 25 sq cm - Legs 1 1 -Apply Skin Sub - each addt'l 25 sq cm 2 - Legs -PuraPly AM (per sq cm) 54 54 #7 RLE Ant Cluster -Time 08:30 08:29 09:15 -Correct Patient Yes Yes Yes -Correct Side, Site, Position Yes Yes Yes -Correct Procedure Yes Yes Yes -Procedure Performed Yes Yes Yes -Type of Procedure Debridement Debridement Debridement -Clinical Debridement Subcutaneous Subcutaneous Subcutaneous -Tissue Removed Subcutaneous Subcutaneous Subcutaneous -Post Debridement (cm) - Length 4.2 4 4.5 -Post Debridement (cm) - Width 5.8 6.3 7 -Post Debridement (cm) - Depth 0.2 0.3 0.3 -Total Square (Post) (cm) 24.36 25.2 31.5 -Area of Debridement (cm) - Length 4.2 4 4.5 -Area of Debridement (cm) - Width 9.8 6.3 7 -Total Square (Area) (cm) 41.16 25.2 31.5 -Tunneling No No No -Undermining/Tunneling No No No -Circular Undermining No No No -Wound/Ulcer Outcome Not Healed Not Healed Not Healed -Ulcer Cleansing Rinsed/ Rinsed/ Rinsed/ Irrigated with Irrigated with Irrigated with Saline Saline Saline -Foul Odor after Cleansing No No No -Bioengineered Tissue No No No -Bleeding Controlled with Pressure -Treatment Response -Debridement - Subq, 1st 20sq cm Yes No Yes -Debridement, SubQ, ea addt'l 20sq cm 1 or part thereof Pain Scale: 0-10 Numeric Is Patient Pain Free? Yes Yes Yes 03/31/20 10:29 Wound Center Nurse 2 #8 RLE Post -Time 09:20 -Correct Patient Yes -Correct Side, Site, Position Yes -Correct Procedure Yes -Procedure Performed Yes -Type of Procedure Debridement -Clinical Debridement Subcutaneous -Tissue Removed Subcutaneous -Post Debridement (cm) - Length 9 -Post Debridement (cm) - Width 6.8 -Post Debridement (cm) - Depth 0.2 -Total Square (Post) (cm) 61.2 -Area of Debridement (cm) - Length 9 -Area of Debridement (cm) - Width 6.8 -Total Square (Area) (cm) 61.2 -Tunneling No -Undermining/Tunneling No -Circular Undermining No -Wound/Ulcer Outcome Not Healed -Ulcer Cleansing Rinsed/ Irrigated with Saline -Foul Odor after Cleansing No -Bioengineered Tissue No -Type of Bioengineered Tissue -Expiration Date -Product Lot Number -Percent Used -Saline Lot Number -Bleeding Controlled with Pressure -Treatment Response Procedure Tolerated Well -Debridement - Subq, 1st 20sq cm No -Debridement, SubQ, ea addt'l 20sq cm 3 or part thereof -Apply Skin Sub - 1st 25 sq cm - Legs -Apply Skin Sub - each addt'l 25 sq cm - Legs -PuraPly AM (per sq cm) #7 RLE Ant Cluster -Time 09:20 -Correct Patient Yes -Correct Side, Site, Position Yes -Correct Procedure Yes -Procedure Performed Yes -Type of Procedure Debridement -Clinical Debridement Subcutaneous -Tissue Removed Subcutaneous -Post Debridement (cm) - Length 5.2 -Post Debridement (cm) - Width 6.5 -Post Debridement (cm) - Depth 0.2 -Total Square (Post) (cm) 33.80 -Area of Debridement (cm) - Length 5.2 -Area of Debridement (cm) - Width 6.5 -Total Square (Area) (cm) 33.80 -Tunneling No -Undermining/Tunneling No -Circular Undermining No -Wound/Ulcer Outcome Not Healed -Ulcer Cleansing Rinsed/ Irrigated with Saline -Foul Odor after Cleansing No -Bioengineered Tissue No -Bleeding Controlled with Pressure -Treatment Response Procedure Tolerated Well -Debridement - Subq, 1st 20sq cm Yes -Debridement, SubQ, ea addt'l 20sq cm 1 or part thereof Pain Scale: 0-10 Numeric Is Patient Pain Free? Yes - Nurse 3 - General Ulcer D/C NN Start: 03/06/20 08:08 Freq: Status: Active Protocol: Activity Type Activity Date Activity User E-Sign Co-Sign Detail Recorded Client Recorded Date Recorded By Document 03/06/20 09:18 [id number] 03/06/20 09:19 JF Document 03/13/20 08:57 KR [id number] 03/13/20 09:09 KR Document 03/20/20 09:56 [facility] [id number] 03/20/20 09:56 [facility] Document 03/31/20 10:00 KR [id number] 03/31/20 10:01 KR 03/06/20 03/13/20 03/20/20 09:18 08:57 09:56 Wound Care Nurse 3 #8 RLE Post -Ulcer Cleansing Rinsed/ Rinsed/ Rinsed/ Irrigated with Irrigated with Irrigated with Saline Saline Saline -Foul Odor after Cleansing No No No -Negative Pressure Wound Therapy N/A -Primary Dressing Applied Aquacel AG 4x4 -Primary Dressing Covered/Secured with Dry Gauze, Dry Gauze & Secured with Secured with Roll Gauze, Tape,Other Tape Secured with Tape -Other Covering abd -Aquacel AG 4x4 1 #7 RLE Ant Cluster -Ulcer Cleansing Rinsed/ Rinsed/ Irrigated with Irrigated with Saline Saline -Foul Odor after Cleansing No No -Primary Dressing Applied Aquacel AG 4x4 Aquacel AG 4x4 -Primary Dressing Covered/Secured with Dry Gauze, Dry Gauze & Secured with Roll Gauze, Tape Secured with Tape -Aquacel AG 4x4 1 0 Treatment Response Procedure Tolerated Well Pain Scale: 0-10 Numeric Is Patient Pain Free? Yes Yes Yes WC - Visit Discharge Discharge Condition Stable Stable Stable Ambulatory Status Ambulatory Ambulatory Ambulatory,Cane Transportation Private Auto Private Auto Private Auto Medication Reconcilliation completed & Yes provided to patient/care provider Clinical Summary of Care Provided Yes 03/31/20 10:00 Wound Care Nurse 3 #8 RLE Post -Ulcer Cleansing Rinsed/ Irrigated with Saline -Foul Odor after Cleansing No -Negative Pressure Wound Therapy -Primary Dressing Applied -Primary Dressing Covered/Secured with Dry Gauze, Secured with Tape -Other Covering -Aquacel AG 4x4 #7 RLE Ant Cluster -Ulcer Cleansing Rinsed/ Irrigated with Saline -Foul Odor after Cleansing No -Primary Dressing Applied -Primary Dressing Covered/Secured with Dry Gauze, Secured with Tape -Aquacel AG 4x4 Treatment Response Pain Scale: 0-10 Numeric Is Patient Pain Free? Yes WC - Visit Discharge Discharge Condition Stable Ambulatory Status Ambulatory Transportation Private Auto Medication Reconcilliation completed & provided to patient/care provider Clinical Summary of Care Provided Laterality: Right - Anterior tibial surface Type of Debridement: Excisional debridement Anesthesia Used: 5% Lidocaine Gel Depth: Down to and including healthy tissue, in the subcutaneous layer Percentage of wound debrided: 100 Instrument Used: 5mm curette Tissue Removed: Bioburden and nonviable tissue Severity: Fat Layer Exposed Amount of bleeding with debridement: Mild Bleeding Controlled with: Compression and gauze Patient tolerated procedure well - Additional Wound Laterality: Right - Posterior calf Type of Debridement: Excisional debridement Anesthesia Used: 5% Lidocaine Gel Depth: Down to and including healthy tissue, in the subcutaneous layer Percentage of wound debrided: 100 Instrument Used: 5mm curette Tissue Removed: Bioburden and nonviable tissue Severity: Fat Layer Exposed Amount of bleeding with debridement: None Bleeding Controlled with: Compression and gauze Patient tolerated procedure: Patient tolerated procedure well Assessment/Plan Active Problems (Last Updated 01/11/18 @ 08:41 by Adeline Andres) Venous ulcer of right leg (Chronic) Cellulitis of right lower extremity (Acute) Leg swelling (Chronic) Leg edema (Chronic) Dependent edema (Chronic) Hypothyroidism (Chronic) Delayed wound healing (Chronic) Venous insufficiency (Chronic) Morbid obesity (Chronic) Ulcer of right lower extremity with fat layer exposed (Chronic) Lymphedema (Chronic) Assessment: Right posterior lower leg ulcer. Right anterior lower leg ulcer. Left anterior lower leg ulcer - healed. Chronic bilateral lower extremity swelling, edema, and lymphedema. Chronic venous insufficiency Plan: A lengthy discussion has been undertaken with the patient with regard to recommended treatment measures. It appears as though these recommendations have been elucidated in the past. Unfortunately, the patient has apparently been less than totally compliant with recommended measures. Leg elevation has been advised. Her lower extremities should be elevated to heart level, or higher. This should be accomplished as much as possible, even during daytime hours. Sleeping on a flat surface at night is also recommended. Prolonged idle sitting has been discouraged. Unfortunately, the patient spends a good portion of each day sitting at her computer or while driving. Activity has been encouraged. Compression has been recommended as well, with the optimal amount of compression being 20 to 30 mmHg, or higher. It appears as though the patient has been reluctant to implement compression to her lower extremities, despite previous advisement to do so. It appears as though she possesses mechanical pneumatic compression pumps, but has not been using these devices as advised. Weight loss has been recommended, though weight loss will require a lengthy amount of time, but is still a where the objective. Consideration may be given to a nutritional consult in this regard. Given the large amount of necrotic and nonviable tissue present on the surface of her right lower extremity ulcerations, weekly mechanical excisional debridements are indicated, and have been undertaken. Additionally, it is felt that collagenase Santyl as an enzymatic debriding agent will be of benefit. This has been recommended in the past, though the patient has not embraced this product, finding reasons to avoid its use. It appears as though these preceding recommendations have been discussed with the patient, and her lack of compliance has resulted in less than optimal progress. Patient is to follow-up henceforth with [facility], Lula Huggins NP.
== END 2020-04-02 23:59 ==
LOC: WC 09:00
PROVIDERS: PCP Family Medicine; Referring Provider Family Medicine; Visit Provider Nurse Practitioner Family
DX: I83.018 Varicose veins of right lower extremity with ulcer other part of lower leg (principal); L97.812 Non-pressure chronic ulcer of other part of right lower leg with fat layer exposed; I87.2 Venous insufficiency (chronic) (peripheral); I89.0 Lymphedema, not elsewhere classified; E66.01 Morbid (severe) obesity due to excess calories; I48.91 Unspecified atrial fibrillation; Z79.01 Long term (current) use of anticoagulants; Z91.19 Patient's noncompliance with other medical treatment and regimen; L03.115 Cellulitis of right lower limb; L97.212 Non-pressure chronic ulcer of right calf with fat layer exposed
CPT/HCPCS: 11042; 11045; 15271; 15272; Q4196

== ENCOUNTER 2020-05-01 09:00 | Outpatient (RCR) | payer MEDICAID, SELFPAY ==
[2020-04-03 00:12] VITALS: BP 158/71; PULSE 68; RESP 18; TEMP 35.8
[2020-04-10 08:11] VITALS: BP 180/80; PULSE 63; TEMP 36.1; BMI 49.0
--- NOTE | 2020-04-10 08:47 | PCM.WC.PN ---
(1) Venous ulcer of right leg Status: Chronic Code(s): I83.019 - Varicose veins of right lower extremity with ulcer of unspecified site; L97.919 - Non-pressure chronic ulcer of unspecified part of right lower leg with unspecified severity (2) Ulcer of right lower extremity with fat layer exposed Status: Chronic Code(s): L97.912 - Non-pressure chronic ulcer of unspecified part of right lower leg with fat layer exposed (3) Chronic venous insufficiency Status: Chronic Code(s): I87.2 - Venous insufficiency (chronic) (peripheral) (4) Lymphedema Status: Chronic Code(s): I89.0 - Lymphedema, not elsewhere classified (5) Morbid obesity Status: Chronic Code(s): E66.01 - Morbid (severe) obesity due to excess calories Type of Wound Date of Service: 04/10/20 Chief Complaint: Severe swelling, edema, and lymphedema of the lower extremities with ulcerations of the right lower extremity. History of Wound: To[facility] for evaluation and treatment of bilateral lower leg ulcers. The patient is [facility] treatment of prior lower extremity ulcers. She has a PMH significant for chronic lymphedema, venous insufficiency, atrial fibrillation (on Eliquis), morbid obesity, hypothyroidism. She reported development of her posterior right lower leg ulcer in April. She initially was using Manuka honey to this ulcer, but then started using Vaseline instead. She reported her anterior right lower extremity ulcer developed in August, and she had been applying Vaseline to this daily. Her anterior left lower extremity ulcer developed approximately 1 week prior to her initial January 2020 appt, and she had been applying Vaseline to this daily as well. She notes that approximately 4 to 6 weeks prior, the ulcer on her posterior right lower leg began increasing in soreness. She has lymphedema pumps at home, but had not been using these due to reported pain with use which is related to her ulcers. She does not use compression at home. She reports frequent dangling of her legs while seated at her computer for work. She does not frequently elevate her feet when seated. The patient denied any fever, chills, nausea, vomiting, or diarrhea. Denied any increasing redness or swelling of the affected area. She did note foul-smelling drainage from her right lower extremity. She had not been on any recent antibiotics. She reported having lab work done approximately 6 weeks prior; these records will be requested for review multiple times but never obtained. She had lower extremity arterial studies completed 05/16/16 which showed relatively normal arterial perfusion to ankle level bilaterally. Triphasic waveforms were noted at ankle level bilaterally. Resting ankle-brachial indices were bilaterally normal. The right digital-brachial index is normal, consistent with normal arterial perfusion at distal, small-vessel level in the right lower extremity. The left digital-brachial index is mildly diminished, suggesting the presence of mild, distal, small-vessel arterial occlusive disease in the left lower extremity. Wound cultures collected on 01/03/2020 were positive for 3+ Aeromonas hydrophilia/caviae, 2+ Citrobacter braakii, 1+ Proteus mirabilis, rare Staphylococus aureus, anaerobic cocci, actinomyces odontolyticus, Bacteroides fragilis; beta-lactamase positive. She completed courses of Levaquin and Augmentin. Weeks later, she developed a mass of localized lymphedema of her right medial thigh that was red and warm; this resolved following a 14-day course of Levaquin and Augmentin. Progress of Wound: Toña returns today for follow up of ulcers of her right lower extremity. Both anterior and posterior RLE ulcers have large amount of slough and bioburden. She continues using her lymphedema pumps intermittently as tolerated, though only for 20-30 mins at a time. She denies any purulent/malodorous drainage from her ulcers. Her anterior leg ulcer is tender to touch. Her posterior ulcer is less tender today and has new, healthy tissues present along the wound edges. She denies fever or chills. Her left lower extremity ulcer remains healed per patient. She refuses MILDRED wraps as they do not stay in place and cause her to have pain. She refuses compression due to discomfort. She states she has been somewhat more compliant with instructions to elevate her legs more frequently. 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 She has been trying to increase her protein intake. - Physical Exam Vital Signs Temp Pulse Resp BP 97.0 F L 63 18 180/80 H 04/10/20 08:11 04/10/20 08:11 04/03/20 00:12 04/10/20 08:11 General: Alert, Cooperative, No apparent distress HEENT: Atraumatic, Normocephalic Neck: Supple, Trachea Midline Lungs: Normal air movement Abdomen: Obese Extremities: No clubbing, No cyanosis, Capillary Refill Less than 3 Seconds, Diminished Peripheral Pulses, Edema Skin: Ulcer/ Wound - 2 RLE ulcers with subQ layer exposed and large amounts of slough and devitalized tissue present. No malodor or purulent drainage. Anterior RLE ulcer with periulcer erythema and tenderness to palpation, no warmth. Posterior RLE ulcer less tender to palpation, no periulcer erythema, no warmth. Wound Measurements and Assessment WC - Nurse 1 - General Ulcer Measurement Start: 04/10/20 08:11 Freq: Status: Active Protocol: Activity Type Activity Date Activity User E-Sign Co-Sign Detail Recorded Client Recorded Date Recorded By Document 04/10/20 08:11 ARMON [id number] 04/10/20 08:16 RAMON 04/10/20 08:11 [facility] Nurse 1 [Ulcer Assessment] #8 RLE Post -Current Size (cm) - Length 8 -Current Size (cm) - Width 7 -Current Size (cm) - Depth 0.2 -Total Square Cm 56 -Exudate Amt Medium -Exudate Type Serosanguineous -Wound Margin Distinct, Outline Attached -Granulation Amt Large (67-100%) -Granulation Quality Red -Necrosis Amt Small (1-33%) -Necrotic Tissue Type Adherent Slough -Texture (Irene-wound Skin Appearance) Assessed, Scarring -Moisture (Irene-wound Skin Appearance No Abnormality, ) Assessed -Color (Irene-wound Skin Appearance) No Abnormality, Assessed -Temperature (Irene-wound Skin No Abnormality Appearance) (Pt Warm) -Tenderness on Palpation (Irene-wound No Skin Appearance) -Ulcer Cleansing Rinsed/ Irrigated with Saline -Foul Odor after Cleansing No #7 RLE Ant Cluster -Current Size (cm) - Length 2.7 -Current Size (cm) - Width 1.8 -Current Size (cm) - Depth 0.1 -Total Square Cm 4.86 -Exudate Amt Small -Exudate Type Sanguineous -Wound Margin Distinct, Outline Attached -Granulation Amt Small (1-33%) -Granulation Quality Red -Necrosis Amt Small (1-33%) -Necrotic Tissue Type Adherent Slough -Texture (Irene-wound Skin Appearance) Assessed, Scarring -Moisture (Irene-wound Skin Appearance No Abnormality, ) Assessed -Color (Irene-wound Skin Appearance) Assessed -Temperature (Irene-wound Skin No Abnormality Appearance) (Pt Warm) -Tenderness on Palpation (Irene-wound No Skin Appearance) -Ulcer Cleansing Rinsed/ Irrigated with Saline -Foul Odor after Cleansing No -Anesthetic Used 4% Lidocaine Solution Musculoskeletal: Tenderness - on debridement and palpation of RLE ulcers Psych/Mental Status: Normal Affect, Appropriate Debridement Note Wound debrided: RLE posterior Laterality: Right Type of Debridement: Excisional debridement Anesthesia Used: 4% Lidocaine Solution, Cetacaine Depth: in the subcutaneous layer Percentage of wound debrided: 100 Instrument Used: 7mm curette Tissue Removed: Slough and devitalized tissue Severity: Fat Layer Exposed Amount of bleeding with debridement: Mild Bleeding Controlled with: Pressure Patient tolerated procedure well - Additional Wound Wound debrided: RLE anterior ulcer cluster Laterality: Right Type of Debridement: Excisional debridement Anesthesia Used: 4% Lidocaine Solution, Cetacaine Depth: in the subcutaneous layer Percentage of wound debrided: 100 Instrument Used: 7mm curette Tissue Removed: Slough and devitalized tissue Severity: Fat Layer Exposed Amount of bleeding with debridement: Mild Bleeding Controlled with: Pressure Patient tolerated procedure: Patient did not tolerate procedure well Assessment/Plan Assessment: Right posterior lower leg ulcer. Right anterior lower leg ulcer. Left anterior lower leg ulcer - healed. Chronic bilateral lower extremity swelling, edema, and lymphedema. Chronic venous insufficiency Plan: Debridement performed today in clinic as above; the patient generally does not tolerate debridement well. Given the duration of the venous ulcers and failure of the ulcers to respond to standard wound care, we applied and were approved for Puraply, NuShield and Apligraf. The patient has completed 6 applications of Puraply to the posterior right lower extremity ulcer. The patient's RLE ulcers have not consistently improved in size, and I feel this is primarily due to the patient's inability to tolerate thorough debridement and refusal to appropriately utilize compression. I have discussed these factors at length with the patient and discussed the option of undergoing surgical debridement to reduce the amount of bioburden and devitalized tissue present; the patient does not have transportation and thus feels this is not a realistic option for her. She was also offered a referral to the lymphedema clinic, but declined stating she would reach out to the [facility] where she had previously been seen; she has not yet done so. Medihoney was too expensive per patient's insurance. The patient has concerns about her ability to visualize/access her wounds appropriately in order to apply Santyl, particularly her posterior RLE ulcer. At home wound care instructions: Due to the heavy amount of slough and bioburden, Santyl will be initiated for the patient's anterior RLE ulcer. Prescription for Santyl was given. We will continue the use of Aquacel Ag dressings daily (to be used in a wet-to-dry manner) to aid in removal of devitalized tissue. The patient was instructed to wash her bilateral lower extremities ulcers thoroughly with soap and water daily prior to applying new dressings. Compression: As previously discussed, lymphedema pumps should be utilized for 1 hour 3 times daily; if this is not well-tolerated, the patient should continue to the pumps as long and frequently as possible, working toward this goal. Offloading: The patient was advised to avoid pressure on her ulcer sites. She is to keep feet elevated at or above waist level when seated. She is to avoid prolonged standing, sitting, or dangling of legs. When driving, she is to perform walking breaks every hour at minimum. Diet: Patient encouraged to increase protein and vitamin C intake while taking caution to avoid high carbohydrate and/or sugar intake. Also instructed to avoid high sodium intake. Labs/cultures/imaging: Labs from 02/21/2020 showed mild decrease in prealbumin but this may be because of infection, negative acute phase reactant. CRP and ESR are elevated but CBC and chemistry were unremarkable. Vascular studies from 2017 were reviewed. Wound cultures collected on 01/03/2020 were positive for 3+ Aeromonas hydrophilia/caviae, 2+ Citrobacter braakii, 1+ Proteus mirabilis, rare Staphylococus aureus, anaerobic cocci, actinomyces odontolyticus, Bacteroides fragilis; beta-lactamase positive. She was previously started on Levaquin and Augmentin and completed a 21-day course of both of these antibiotics. Repeat wound culture results from 02/21/2020 reviewed and were negative for anaerobic bacteria; aerobic culture positive for very rare gram positive constanza, no sensitivities reported. Patient completed an additional 14-day course of Levaquin and Augmentin. Her cellulitis has resolved. Follow-up: Return to clinic in 1 week for re-evaluation. Return sooner or report to the emergency room should symptoms worsen, or new symptoms arise. Note: [employer] speech recognition neighborhood conservation officer software was used to create portions of this document. Sound-alike and misspelled words, as well as other neighborhood conservation officer errors may be contained in the documentation. [id number]: [id number] Shante subq tissue 20 sq cm/< Add On Codes: 26794 Shante subq tissue add-on - x3
[2020-04-17 08:48] VITALS: BP 153/81; PULSE 70; TEMP 36; BMI 49.0
--- NOTE | 2020-04-17 10:08 | PCM.WC.PN ---
(1) Venous ulcer of right leg Status: Chronic Code(s): I83.019 - Varicose veins of right lower extremity with ulcer of unspecified site; L97.919 - Non-pressure chronic ulcer of unspecified part of right lower leg with unspecified severity (2) Ulcer of right lower extremity with fat layer exposed Status: Chronic Code(s): L97.912 - Non-pressure chronic ulcer of unspecified part of right lower leg with fat layer exposed (3) Chronic venous insufficiency Status: Chronic Code(s): I87.2 - Venous insufficiency (chronic) (peripheral) (4) Lymphedema Status: Chronic Code(s): I89.0 - Lymphedema, not elsewhere classified (5) Morbid obesity Status: Chronic Code(s): E66.01 - Morbid (severe) obesity due to excess calories (6) Cellulitis Status: Acute Qualifiers: Site of cellulitis: extremity Laterality: right Code(s): L03.90 - Cellulitis, unspecified Type of Wound Date of Service: 04/17/20 Chief Complaint: Severe swelling, edema, and lymphedema of the lower extremities with ulcerations of the right lower extremity. History of Wound: [facility] for evaluation and treatment of bilateral lower leg ulcers. The patient is [facility] treatment of prior lower extremity ulcers. She has a PMH significant for chronic lymphedema, venous insufficiency, atrial fibrillation (on Eliquis), morbid obesity, hypothyroidism. She reported development of her posterior right lower leg ulcer in April. She initially was using Manuka honey to this ulcer, but then started using Vaseline instead. She reported her anterior right lower extremity ulcer developed in August, and she had been applying Vaseline to this daily. Her anterior left lower extremity ulcer developed approximately 1 week prior to her initial January 2020 appt, and she had been applying Vaseline to this daily as well. She notes that approximately 4 to 6 weeks prior, the ulcer on her posterior right lower leg began increasing in soreness. She has lymphedema pumps at home, but had not been using these due to reported pain with use which is related to her ulcers. She does not use compression at home. She reports frequent dangling of her legs while seated at her computer for work. She does not frequently elevate her feet when seated. The patient denied any fever, chills, nausea, vomiting, or diarrhea. Denied any increasing redness or swelling of the affected area. She did note foul-smelling drainage from her right lower extremity. She had not been on any recent antibiotics. She reported having lab work done approximately 6 weeks prior; these records will be requested for review multiple times but never obtained. She had lower extremity arterial studies completed 05/16/16 which showed relatively normal arterial perfusion to ankle level bilaterally. Triphasic waveforms were noted at ankle level bilaterally. Resting ankle-brachial indices were bilaterally normal. The right digital-brachial index is normal, consistent with normal arterial perfusion at distal, small-vessel level in the right lower extremity. The left digital-brachial index is mildly diminished, suggesting the presence of mild, distal, small-vessel arterial occlusive disease in the left lower extremity. Wound cultures collected on 01/03/2020 were positive for 3+ Aeromonas hydrophilia/caviae, 2+ Citrobacter braakii, 1+ Proteus mirabilis, rare Staphylococus aureus, anaerobic cocci, actinomyces odontolyticus, Bacteroides fragilis; beta-lactamase positive. She completed courses of Levaquin and Augmentin. Weeks later, she developed a mass of localized lymphedema of her right medial thigh that was red and warm; this resolved following a 14-day course of Levaquin and Augmentin. Progress of Wound: Toña returns today for follow up of ulcers of her right lower extremity. Both anterior and posterior RLE ulcers have large amount of slough and bioburden. She has decreased use of her lymphedema pumps in the past week, due to reported intolerance. When she does use her lymphedema pumps, it is only for 20-30 mins at a time. She denies any purulent/malodorous drainage from her ulcers. Her anterior leg ulcer is very tender to touch today. She has periulcer erythema and warmth and tenderness to palpation. There is no malodorous drainage. Her posterior ulcer is less tender today and has new, healthy tissue present along the wound edges. She denies fever or chills. Her left lower extremity ulcer remains healed per patient. She consistently refuses TOMAS wraps as they do not stay in place and cause her to have pain. She refuses compression due to discomfort. She states she has been somewhat more compliant with instructions to elevate her legs more frequently. 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 She also performs seated work, sitting at a desk without feet elevated. She has been trying to increase her protein intake. - Physical Exam Vital Signs Temp Pulse Resp BP 96.8 F L 70 18 153/81 H 04/17/20 08:48 04/17/20 08:48 04/03/20 00:12 04/17/20 08:48 General: Alert, Cooperative HEENT: Atraumatic, Normocephalic Neck: Supple, Trachea Midline Lungs: Normal air movement Cardiovascular: Regular rate Abdomen: Obese Extremities: No clubbing, No cyanosis, Capillary Refill Less than 3 Seconds, Diminished Peripheral Pulses, Edema - 3+ pitting edema of bilateral lower extremities; lymphedema of bilateral lower extremities, Tenderness - Right lower extremity Skin: Ulcer/ Wound - To RLE ulcers with subQ layer exposed and large amounts of slough and devitalized tissue present. No malodor or purulent drainage. Anterior RLE ulcer with periulcer erythema, warmth and tenderness to palpation. Posterior RLE ulcer less tender to palpation, no periulcer erythema, no warmth. Wound Measurements and Assessment WC - Nurse 1 - General Ulcer Measurement Start: 04/10/20 08:11 Freq: Status: Active Protocol: Activity Type Activity Date Activity User E-Sign Co-Sign Detail Recorded Client Recorded Date Recorded By Document 04/17/20 08:48 RAMON [id number] 04/17/20 08:54 RAMON 04/17/20 08:48 Wound Center Nurse 1 [Ulcer Assessment] #8 RLE Post -Current Size (cm) - Length 4 -Current Size (cm) - Width 6.7 -Current Size (cm) - Depth 0.2 -Total Square Cm 26.8 -Exudate Amt Medium -Exudate Type Serosanguineous -Wound Margin Distinct, Outline Attached -Granulation Amt Medium (34-66%) -Granulation Quality Red -Necrosis Amt Medium (34-66%) -Necrotic Tissue Type Adherent Slough -Texture (Irene-wound Skin Appearance) Assessed, Scarring -Moisture (Irene-wound Skin Appearance No Abnormality, ) Assessed -Color (Irene-wound Skin Appearance) No Abnormality, Assessed -Temperature (Irene-wound Skin No Abnormality Appearance) (Pt Warm) -Tenderness on Palpation (Irene-wound No Skin Appearance) -Ulcer Cleansing Rinsed/ Irrigated with Saline -Foul Odor after Cleansing No -Anesthetic Used 4% Lidocaine Solution #7 RLE Ant Cluster -Current Size (cm) - Length 7.8 -Current Size (cm) - Width 5.8 -Current Size (cm) - Depth 0.3 -Total Square Cm 45.24 -Exudate Amt Medium -Exudate Type Serosanguineous -Wound Margin Distinct, Outline Attached -Granulation Amt Medium (34-66%) -Granulation Quality Red -Necrosis Amt Medium (34-66%) -Necrotic Tissue Type Adherent Slough -Texture (Irene-wound Skin Appearance) Assessed, Scarring -Moisture (Irene-wound Skin Appearance No Abnormality, ) Assessed -Color (Irene-wound Skin Appearance) No Abnormality, Assessed -Temperature (Irene-wound Skin No Abnormality Appearance) (Pt Warm) -Tenderness on Palpation (Irene-wound No Skin Appearance) -Ulcer Cleansing Rinsed/ Irrigated with Saline -Foul Odor after Cleansing No -Anesthetic Used 4% Lidocaine Solution [Edema Assessment] -Right Calf (cm) 73 -Right Ankle (cm) 34 WC - Nurse 2 - General Ulcer CM Notes Start: 04/10/20 08:11 Freq: Status: Active Protocol: Activity Type Activity Date Activity User E-Sign Co-Sign Detail Recorded Client Recorded Date Recorded By Document 04/17/20 08:58 ASHLY [id number] 04/17/20 09:17 ASHLY 04/17/20 08:58 Wound Center Nurse 2 [Procedure/Treatment] #8 RLE Post -Time 09:10 -Correct Patient Yes -Correct Side, Site, Position Yes -Correct Procedure Yes -Procedure Performed Yes -Type of Procedure Debridement -Clinical Debridement Subcutaneous -Tissue Removed Subcutaneous -Post Debridement (cm) - Length 8 -Post Debridement (cm) - Width 6 -Post Debridement (cm) - Depth 0.3 -Total Square (Post) (cm) 48 -Area of Debridement (cm) - Length 8 -Area of Debridement (cm) - Width 6 -Total Square (Area) (cm) 48 -Tunneling No -Undermining/Tunneling No -Circular Undermining No -Wound/Ulcer Outcome Not Healed -Ulcer Cleansing Rinsed/ Irrigated with Saline -Foul Odor after Cleansing No -Bioengineered Tissue No -Bleeding Controlled with Pressure -Offloading No -Treatment Response Procedure Tolerated Well -Debridement - Subq, 1st 20sq cm No #7 RLE Ant Cluster -Time 09:08 -Correct Patient Yes -Correct Side, Site, Position Yes -Correct Procedure Yes -Procedure Performed Yes -Type of Procedure Debridement -Clinical Debridement Subcutaneous -Tissue Removed Subcutaneous -Post Debridement (cm) - Length 5 -Post Debridement (cm) - Width 7 -Post Debridement (cm) - Depth 0.1 -Total Square (Post) (cm) 35 -Area of Debridement (cm) - Length 5 -Area of Debridement (cm) - Width 7 -Total Square (Area) (cm) 35 -Tunneling No -Undermining/Tunneling No -Circular Undermining No -Wound/Ulcer Outcome Not Healed -Ulcer Cleansing Rinsed/ Irrigated with Saline -Foul Odor after Cleansing No -Bioengineered Tissue No -Bleeding Controlled with Pressure -Offloading No -Treatment Response Procedure Tolerated Well -Debridement - Subq, 1st 20sq cm Yes -Debridement, SubQ, ea addt'l 20sq cm 4 or part thereof [See Physician Procedure note for Specifics] Pain Scale: 0-10 Numeric [Pain] -Is Patient Pain Free? Yes - Nurse 3 - General Ulcer D/C NN Start: 04/10/20 08:11 Freq: Status: Active Protocol: Activity Type Activity Date Activity User E-Sign Co-Sign Detail Recorded Client Recorded Date Recorded By Document 04/17/20 09:17 ASHLY [id number] 04/17/20 09:18 ASHLY 04/17/20 09:17 Wound Care Nurse 3 [Wound Dressing] #8 RLE Post -Ulcer Cleansing Rinsed/ Irrigated with Saline -Foul Odor after Cleansing No -Primary Dressing Applied Silvercel -Primary Dressing Covered/Secured Dry Gauze & with Roll Gauze, Secured with Tape -Silvercel 2 #7 RLE Ant Cluster -Ulcer Cleansing Rinsed/ Irrigated with Saline -Foul Odor after Cleansing No -Primary Dressing Applied Silvercel -Primary Dressing Covered/Secured Dry Gauze & with Roll Gauze, Secured with Tape -Silvercel 0 [Compression Applied] Right -Compression Wrap Tomas Wrap Pain Scale: 0-10 Numeric [Pain] -Is Patient Pain Free? Yes - Visit Discharge [Visit Discharge Information] -Discharge Condition Stable -Ambulatory Status Ambulatory -Transportation Private Auto -Medication Reconcilliation completed Yes & provided to patient/care provider -Clinical Summary of Care Provided Yes Psych/Mental Status: Normal Affect, Appropriate Debridement Note Post-Debridement Measurements/Treatment WC - Nurse 2 - General Ulcer CM Notes Start: 04/10/20 08:11 Freq: Status: Active Protocol: Activity Type Activity Date Activity User E-Sign Co-Sign Detail Recorded Client Recorded Date Recorded By Document 04/10/20 09:12 PL [id number] 04/10/20 09:14 PL Document 04/17/20 08:58 JF [id number] 04/17/20 09:17 JF 04/10/20 04/17/20 09:12 08:58 Wound Center Nurse 2 #8 RLE Post -Time 08:23 09:10 -Correct Patient Yes Yes -Correct Side, Site, Position Yes Yes -Correct Procedure Yes Yes -Procedure Performed Yes Yes -Type of Procedure Debridement Debridement -Clinical Debridement Subcutaneous Subcutaneous -Tissue Removed Subcutaneous Subcutaneous -Post Debridement (cm) - Length 7.5 8 -Post Debridement (cm) - Width 7.8 6 -Post Debridement (cm) - Depth 0.2 0.3 -Total Square (Post) (cm) 58.50 48 -Area of Debridement (cm) - Length 7.5 8 -Area of Debridement (cm) - Width 7.8 6 -Total Square (Area) (cm) 58.50 48 -Tunneling No No -Undermining/Tunneling No No -Circular Undermining No No -Wound/Ulcer Outcome Not Healed Not Healed -Ulcer Cleansing Rinsed/ Rinsed/ Irrigated with Irrigated with Saline Saline -Foul Odor after Cleansing No No -Bioengineered Tissue No No -Bleeding Controlled with Pressure -Offloading No -Treatment Response Procedure Tolerated Well -Debridement - Subq, 1st 20sq cm Yes No -Debridement, SubQ, ea addt'l 20sq cm 2 or part thereof #7 RLE Ant Cluster -Time 08:23 09:08 -Correct Patient Yes Yes -Correct Side, Site, Position Yes Yes -Correct Procedure Yes Yes -Procedure Performed Yes Yes -Type of Procedure Debridement Debridement -Clinical Debridement Subcutaneous Subcutaneous -Tissue Removed Subcutaneous Subcutaneous -Post Debridement (cm) - Length 4.7 5 -Post Debridement (cm) - Width 6.2 7 -Post Debridement (cm) - Depth 0.2 0.1 -Total Square (Post) (cm) 29.14 35 -Area of Debridement (cm) - Length 4.7 5 -Area of Debridement (cm) - Width 6.2 7 -Total Square (Area) (cm) 29.14 35 -Tunneling No No -Undermining/Tunneling No No -Circular Undermining No No -Wound/Ulcer Outcome Not Healed Not Healed -Ulcer Cleansing Rinsed/ Rinsed/ Irrigated with Irrigated with Saline Saline -Foul Odor after Cleansing No No -Bioengineered Tissue No No -Bleeding Controlled with Pressure Pressure -Offloading No -Treatment Response Procedure Procedure Tolerated Well Tolerated Well -Debridement - Subq, 1st 20sq cm No Yes -Debridement, SubQ, ea addt'l 20sq cm 1 4 or part thereof Pain Scale: 0-10 Numeric Is Patient Pain Free? Yes Yes - Nurse 3 - General Ulcer D/C NN Start: 04/10/20 08:11 Freq: Status: Active Protocol: Activity Type Activity Date Activity User E-Sign Co-Sign Detail Recorded Client Recorded Date Recorded By Document 04/10/20 08:58 DL [id number] 04/10/20 08:59 DL Document 04/17/20 09:17 [id number] 04/17/20 09:18 04/10/20 04/17/20 08:58 09:17 Wound Care Nurse 3 #8 RLE Post -Ulcer Cleansing Wound Cleanser Rinsed/ Irrigated with Saline -Foul Odor after Cleansing No No -Primary Dressing Applied Aquacel AG 4x4 Silvercel -Primary Dressing Covered/Secured with Dry Gauze, Dry Gauze & Secured with Roll Gauze, Tape Secured with Tape -Aquacel AG 4x4 2 -Silvercel 2 #7 RLE Ant Cluster -Ulcer Cleansing Wound Cleanser Rinsed/ Irrigated with Saline -Foul Odor after Cleansing No No -Primary Dressing Applied Silvercel -Other Dressing moist qauze -Primary Dressing Covered/Secured with Dry Gauze, Dry Gauze & Secured with Roll Gauze, Tape Secured with Tape -Silvercel 0 Right -Compression Wrap Tomas Wrap Treatment Response Procedure Tolerated Well Pain Scale: 0-10 Numeric Is Patient Pain Free? Yes Yes - Visit Discharge Discharge Condition Stable Stable Ambulatory Status Ambulatory Ambulatory Transportation Private Auto Private Auto Medication Reconcilliation completed & Yes provided to patient/care provider Clinical Summary of Care Provided Yes Notes: Resume Santyl to Ant Ulcer at home Wound debrided: RLE posterior Laterality: Right Anesthesia Used: 4% Lidocaine Solution, Cetacaine Depth: in the subcutaneous layer Percentage of wound debrided: 100 Instrument Used: 7mm curette Tissue Removed: Slough and devitalized tissue Severity: Fat Layer Exposed Amount of bleeding with debridement: Mild Bleeding Controlled with: Compression and gauze Patient tolerated procedure well - Additional Wound Wound debrided: RLE anterior cluster Laterality: Right Type of Debridement: Excisional debridement Anesthesia Used: 4% Lidocaine Solution, Cetacaine Depth: in the subcutaneous layer Percentage of wound debrided: 10 - Patient unable to tolerate debridement and refused further debridement. Instrument Used: 7mm curette Tissue Removed: Slough and devitalized tissue Severity: Fat Layer Exposed Amount of bleeding with debridement: None Patient tolerated procedure: Patient did not tolerate procedure well Assessment/Plan Active Problems (Last Updated 01/11/18 @ 08:41 by Adeline Andres) Venous ulcer of right leg (Chronic) Chronic venous insufficiency (Chronic) Morbid obesity (Chronic) Ulcer of right lower extremity with fat layer exposed (Chronic) Lymphedema (Chronic) Assessment: Right posterior lower leg ulcer. Right anterior lower leg ulcer. Left anterior lower leg ulcer - healed. Chronic bilateral lower extremity swelling, edema, and lymphedema. Chronic venous insufficiency Plan: Debridement performed today in clinic as above; the patient generally does not tolerate debridement well. Given the duration of the venous ulcers and failure of the ulcers to respond to standard wound care, we applied and were approved for Puraply, NuShield and Apligraf. The patient has completed 6 applications of Puraply to the posterior right lower extremity ulcer. The patient's RLE ulcers have not consistently improved in size, and I feel this is primarily due to the patient's inability to tolerate thorough debridement and refusal to appropriately utilize compression. I have discussed these factors at length with the patient and discussed the option of undergoing surgical debridement to reduce the amount of bioburden and devitalized tissue present; the patient does not have transportation and thus feels this is not a realistic option for her. She was also offered a referral to the lymphedema clinic, but declined stating she would reach out to the [place] [facility] where she had previously been seen; she has not yet done so. Medihoney was too expensive per patient. The patient has concerns about her ability to visualize/access her exterior ulcer appropriately in order to apply Santyl. She has been able to apply Santyl appropriately to her anterior RLE ulcer. At home wound care instructions: Due to the heavy amount of slough and bioburden, Santyl will be continued for the patient's anterior RLE ulcer. 2 good response, we will continue the use of silver dressings daily (to be used in a wet-to-dry manner) to aid in removal of devitalized tissue; silvercel given today. The patient was instructed to wash her bilateral lower extremities ulcers thoroughly with antibacterial soap and water daily prior to applying new dressings. Compression: As previously discussed, lymphedema pumps should be utilized for 1 hour 3 times daily; if this is not well-tolerated, the patient should continue to the pumps as long and frequently as possible, working toward this goal. Patient is agreeable to try a different method of wrapping her right lower extremity with Tomas wraps. These were applied today in clinic. Offloading: The patient was advised to avoid pressure on her ulcer sites. She is to keep feet elevated at or above waist level when seated. She is to avoid prolonged standing, sitting, or dangling of legs. When driving, she is to perform walking breaks every hour at minimum. Diet: Patient encouraged to increase protein and vitamin C intake while taking caution to avoid high carbohydrate and/or sugar intake. Also instructed to avoid high sodium intake. Labs/cultures/imaging: Labs from 02/21/2020 showed mild decrease in prealbumin but this may be because of infection, negative acute phase reactant. CRP and ESR are elevated but CBC and chemistry were unremarkable. Vascular studies from 2017 were reviewed. Wound cultures collected on 01/03/2020 were positive for 3+ Aeromonas hydrophilia/caviae, 2+ Citrobacter braakii, 1+ Proteus mirabilis, rare Staphylococus aureus, anaerobic cocci, actinomyces odontolyticus, Bacteroides fragilis; beta-lactamase positive. She was previously started on Levaquin and Augmentin and completed a 21-day course of both of these antibiotics. Repeat wound culture results from 02/21/2020 reviewed and were negative for anaerobic bacteria; aerobic culture positive for very rare gram positive constanza, no sensitivities reported. Patient completed an additional 14-day course of Levaquin and Augmentin and her cellulitis has resolved. She now has recurrence of cellulitis, this time in her right lower extremity surrounding her anterior RLE ulcer. A culture was not able to be obtained due to patient's intolerance of debridement. She was started on Augmentin 875/125 mg p.o. twice daily x10 days empirically. We will continue to monitor. Follow-up: Return to clinic in 1 week for re-evaluation. Return sooner or report to the emergency room should symptoms worsen, or new symptoms arise. Note: [employer] speech recognition e commerce specialist software was used to create portions of this document. Sound-alike and misspelled words, as well as other e commerce specialist errors may be contained in the documentation. [id number]: [id number] Shante subq tissue 20 sq cm/< Add On Codes: 35041 Shante subq tissue add-on - x4
[2020-05-01 09:09] VITALS: BP 130/51; PULSE 68; TEMP 35.7; BMI 49.0
--- NOTE | 2020-05-01 10:29 | PCM.WC.PN ---
(1) Venous ulcer of right leg Status: Chronic Code(s): I83.019 - Varicose veins of right lower extremity with ulcer of unspecified site; L97.919 - Non-pressure chronic ulcer of unspecified part of right lower leg with unspecified severity (2) Ulcer of right lower extremity with fat layer exposed Status: Chronic Code(s): L97.912 - Non-pressure chronic ulcer of unspecified part of right lower leg with fat layer exposed (3) Chronic venous insufficiency Status: Chronic Code(s): I87.2 - Venous insufficiency (chronic) (peripheral) (4) Lymphedema Status: Chronic Code(s): I89.0 - Lymphedema, not elsewhere classified (5) Morbid obesity Status: Chronic Code(s): E66.01 - Morbid (severe) obesity due to excess calories (6) Cellulitis Status: Acute Qualifiers: Site of cellulitis: extremity Laterality: right Code(s): L03.90 - Cellulitis, unspecified Type of Wound Date of Service: 05/01/20 Chief Complaint: Severe swelling, edema, and lymphedema of the lower extremities with ulcerations of the right lower extremity. History of Wound: [facility] for evaluation and treatment of bilateral lower leg ulcers. The patient is [facility] treatment of prior lower extremity ulcers. She has a PMH significant for chronic lymphedema, venous insufficiency, atrial fibrillation (on Eliquis), morbid obesity, hypothyroidism. She reported development of her posterior right lower leg ulcer in April. She initially was using Manuka honey to this ulcer, but then started using Vaseline instead. She reported her anterior right lower extremity ulcer developed in August, and she had been applying Vaseline to this daily. Her anterior left lower extremity ulcer developed approximately 1 week prior to her initial January 2020 appt, and she had been applying Vaseline to this daily as well. She notes that approximately 4 to 6 weeks prior, the ulcer on her posterior right lower leg began increasing in soreness. She has lymphedema pumps at home, but had not been using these due to reported pain with use which is related to her ulcers. She does not use compression at home. She reports frequent dangling of her legs while seated at her computer for work. She does not frequently elevate her feet when seated. The patient denied any fever, chills, nausea, vomiting, or diarrhea. Denied any increasing redness or swelling of the affected area. She did note foul-smelling drainage from her right lower extremity. She had not been on any recent antibiotics. She reported having lab work done approximately 6 weeks prior; these records will be requested for review multiple times but never obtained. She had lower extremity arterial studies completed 05/16/16 which showed relatively normal arterial perfusion to ankle level bilaterally. Triphasic waveforms were noted at ankle level bilaterally. Resting ankle-brachial indices were bilaterally normal. The right digital-brachial index is normal, consistent with normal arterial perfusion at distal, small-vessel level in the right lower extremity. The left digital-brachial index is mildly diminished, suggesting the presence of mild, distal, small-vessel arterial occlusive disease in the left lower extremity. Wound cultures collected on 01/03/2020 were positive for 3+ Aeromonas hydrophilia/caviae, 2+ Citrobacter braakii, 1+ Proteus mirabilis, rare Staphylococus aureus, anaerobic cocci, actinomyces odontolyticus, Bacteroides fragilis; beta-lactamase positive. She completed courses of Levaquin and Augmentin. Weeks later, she developed a mass of localized lymphedema of her right medial thigh that was red and warm; this resolved following a 14-day course of Levaquin and Augmentin. Progress of Wound: Toña returns today for follow up of ulcers of her right lower extremity. Both anterior and posterior RLE ulcers have large amount of slough and bioburden. She has been applying Santyl to the anterior ervin ulcer and AquacelAg to the posterior leg ulcer. She is tolerating these well. Anterior RLE ulcer has improved significantly in size. She has been noncompliant with the use of lymphedema pumps. Her leg was wrapped with Tomas bandages for compression at her last appt and she states these stayed on until the end of the day, but she was unable to reapply them. She denies any purulent/malodorous drainage from her ulcers. Her anterior leg ulcer is very tender to touch today. She has periulcer erythema and warmth and tenderness to palpation. There is no malodorous drainage. Her posterior ulcer is less tender today and has new, healthy tissue present along the wound edges. She denies fever or chills. She again has a mass of localized lymphedema of her right medial thigh, which is warm to touch. This onset again yesterday. She refuses compression due to discomfort and difficulty applying compression. She states she has been noncompliant with instructions to elevate her legs more frequently. 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 She has been advised to take walking breaks when driving, but has been noncompliant with these instructions as well. She performs seated work, sitting at a desk without feet elevated. She has been trying to increase her protein intake. - Physical Exam Vital Signs Temp Pulse Resp BP 96.3 F L 68 18 130/51 H 05/01/20 09:09 05/01/20 09:09 04/03/20 00:12 05/01/20 09:09 General: Alert, Cooperative, No apparent distress HEENT: Atraumatic, Normocephalic Oral: Moist Mucosa Lungs: Normal air movement Abdomen: Obese Extremities: No clubbing, No cyanosis, Capillary Refill Less than 3 Seconds, Diminished Peripheral Pulses, Edema - edema and lymphedema of bilateral lower extremities Skin: Ulcer/ Wound - RLE ulcers with subcutaneous layer exposed enlargements of slough and devitalized tissue present. No malodor or purulent drainage. Mild periulcer erythema, no warmth to touch., Excoriated - RLE anterior ervin ulcer has periulcer excoriation. No warmth to touch. Wound Measurements and Assessment WC - Nurse 1 - General Ulcer Measurement Start: 04/10/20 08:11 Freq: Status: Active Protocol: Activity Type Activity Date Activity User E-Sign Co-Sign Detail Recorded Client Recorded Date Recorded By Document 05/01/20 09:09 RAMON [id number] 05/01/20 09:17 RAMON 05/01/20 09:09 Wound Center Nurse 1 [Ulcer Assessment] #8 RLE Post -Current Size (cm) - Length 4.9 -Current Size (cm) - Width 7.2 -Current Size (cm) - Depth 0.2 -Total Square Cm 35.28 -Exudate Amt Medium -Exudate Type Serosanguineous -Wound Margin Distinct, Outline Attached -Granulation Amt Medium (34-66%) -Granulation Quality Red -Necrosis Amt Medium (34-66%) -Necrotic Tissue Type Adherent Slough -Texture (Irene-wound Skin Appearance) Assessed, Scarring -Moisture (Irene-wound Skin Appearance No Abnormality, ) Assessed -Color (Irene-wound Skin Appearance) No Abnormality, Assessed -Temperature (Irene-wound Skin No Abnormality Appearance) (Pt Warm) -Tenderness on Palpation (Irene-wound No Skin Appearance) -Ulcer Cleansing Rinsed/ Irrigated with Saline -Foul Odor after Cleansing No -Anesthetic Used 4% Lidocaine Solution #7 RLE Ant Cluster -Current Size (cm) - Length 7.9 -Current Size (cm) - Width 8 -Current Size (cm) - Depth 0.2 -Total Square Cm 63.2 -Exudate Amt Medium -Exudate Type Serosanguineous -Wound Margin Distinct, Outline Attached -Granulation Amt Medium (34-66%) -Granulation Quality Red -Necrosis Amt Medium (34-66%) -Necrotic Tissue Type Adherent Slough -Texture (Riene-wound Skin Appearance) Assessed, Scarring -Color (Irene-wound Skin Appearance) No Abnormality, Assessed -Temperature (Irene-wound Skin No Abnormality Appearance) (Pt Warm) -Tenderness on Palpation (Irene-wound No Skin Appearance) -Ulcer Cleansing Rinsed/ Irrigated with Saline -Foul Odor after Cleansing No -Anesthetic Used 4% Lidocaine Solution CHRISTIANNE - Nurse 3 - General Ulcer D/C NN Start: 04/10/20 08:11 Freq: Status: Active Protocol: Activity Type Activity Date Activity User E-Sign Co-Sign Detail Recorded Client Recorded Date Recorded By Document 05/01/20 10:09 RAMON [id number] 05/01/20 10:10 RAMON 05/01/20 10:09 Wound Care Nurse 3 [Wound Dressing] #8 RLE Post -Ulcer Cleansing Rinsed/ Irrigated with Saline -Foul Odor after Cleansing No -Primary Dressing Applied Aquacel Extra -Primary Dressing Covered/Secured Dry Gauze, with Secured with Tape -Aquacel Extra 1 #7 RLE Ant Cluster -Primary Dressing Covered/Secured Dry Gauze, with Secured with Tape Pain Scale: 0-10 Numeric [Pain] -Is Patient Pain Free? Yes - Visit Discharge [Visit Discharge Information] -Discharge Condition Stable -Ambulatory Status Ambulatory -Transportation Private Auto Lymphatic: - - mass of localized lymphedema of right medial thigh is erythematous and warm to touch, with no open wound/ulcer Psych/Mental Status: Normal Affect, Appropriate Debridement Note Post-Debridement Measurements/Treatment CHRISTIANNE - Nurse 2 - General Ulcer CM Notes Start: 04/10/20 08:11 Freq: Status: Active Protocol: Activity Type Activity Date Activity User E-Sign Co-Sign Detail Recorded Client Recorded Date Recorded By Document 04/10/20 09:12 PL [id number] 04/10/20 09:14 PL Document 04/17/20 08:58 JF [id number] 04/17/20 09:17 JF 04/10/20 04/17/20 09:12 08:58 Wound Center Nurse 2 #8 RLE Post -Time 08:23 09:10 -Correct Patient Yes Yes -Correct Side, Site, Position Yes Yes -Correct Procedure Yes Yes -Procedure Performed Yes Yes -Type of Procedure Debridement Debridement -Clinical Debridement Subcutaneous Subcutaneous -Tissue Removed Subcutaneous Subcutaneous -Post Debridement (cm) - Length 7.5 8 -Post Debridement (cm) - Width 7.8 6 -Post Debridement (cm) - Depth 0.2 0.3 -Total Square (Post) (cm) 58.50 48 -Area of Debridement (cm) - Length 7.5 8 -Area of Debridement (cm) - Width 7.8 6 -Total Square (Area) (cm) 58.50 48 -Tunneling No No -Undermining/Tunneling No No -Circular Undermining No No -Wound/Ulcer Outcome Not Healed Not Healed -Ulcer Cleansing Rinsed/ Rinsed/ Irrigated with Irrigated with Saline Saline -Foul Odor after Cleansing No No -Bioengineered Tissue No No -Bleeding Controlled with Pressure -Offloading No -Treatment Response Procedure Tolerated Well -Debridement - Subq, 1st 20sq cm Yes No -Debridement, SubQ, ea addt'l 20sq cm 2 or part thereof #7 RLE Ant Cluster -Time 08:23 09:08 -Correct Patient Yes Yes -Correct Side, Site, Position Yes Yes -Correct Procedure Yes Yes -Procedure Performed Yes Yes -Type of Procedure Debridement Debridement -Clinical Debridement Subcutaneous Subcutaneous -Tissue Removed Subcutaneous Subcutaneous -Post Debridement (cm) - Length 4.7 5 -Post Debridement (cm) - Width 6.2 7 -Post Debridement (cm) - Depth 0.2 0.1 -Total Square (Post) (cm) 29.14 35 -Area of Debridement (cm) - Length 4.7 5 -Area of Debridement (cm) - Width 6.2 7 -Total Square (Area) (cm) 29.14 35 -Tunneling No No -Undermining/Tunneling No No -Circular Undermining No No -Wound/Ulcer Outcome Not Healed Not Healed -Ulcer Cleansing Rinsed/ Rinsed/ Irrigated with Irrigated with Saline Saline -Foul Odor after Cleansing No No -Bioengineered Tissue No No -Bleeding Controlled with Pressure Pressure -Offloading No -Treatment Response Procedure Procedure Tolerated Well Tolerated Well -Debridement - Subq, 1st 20sq cm No Yes -Debridement, SubQ, ea addt'l 20sq cm 1 4 or part thereof Pain Scale: 0-10 Numeric Is Patient Pain Free? Yes Yes - Nurse 3 - General Ulcer D/C NN Start: 04/10/20 08:11 Freq: Status: Active Protocol: Activity Type Activity Date Activity User E-Sign Co-Sign Detail Recorded Client Recorded Date Recorded By Document 04/10/20 08:58 DL [id number] 04/10/20 08:59 DL Document 04/17/20 09:17 JF [id number] 04/17/20 09:18 JF Document 05/01/20 10:09 KR [id number] 05/01/20 10:10 KR 04/10/20 04/17/20 05/01/20 08:58 09:17 10:09 Wound Care Nurse 3 #8 RLE Post -Ulcer Cleansing Wound Cleanser Rinsed/ Rinsed/ Irrigated with Irrigated with Saline Saline -Foul Odor after Cleansing No No No -Primary Dressing Applied Aquacel AG 4x4 Silvercel Aquacel Extra -Primary Dressing Covered/Secured with Dry Gauze, Dry Gauze & Dry Gauze, Secured with Roll Gauze, Secured with Tape Secured with Tape Tape -Aquacel Extra 1 -Aquacel AG 4x4 2 -Silvercel 2 #7 RLE Ant Cluster -Ulcer Cleansing Wound Cleanser Rinsed/ Irrigated with Saline -Foul Odor after Cleansing No No -Primary Dressing Applied Silvercel -Other Dressing moist qauze -Primary Dressing Covered/Secured with Dry Gauze, Dry Gauze & Dry Gauze, Secured with Roll Gauze, Secured with Tape Secured with Tape Tape -Silvercel 0 Right -Compression Wrap Tomas Wrap Treatment Response Procedure Tolerated Well Pain Scale: 0-10 Numeric Is Patient Pain Free? Yes Yes Yes - Visit Discharge Discharge Condition Stable Stable Stable Ambulatory Status Ambulatory Ambulatory Ambulatory Transportation Private Auto Private Auto Private Auto Medication Reconcilliation completed & Yes provided to patient/care provider Clinical Summary of Care Provided Yes Notes: Resume Santyl to Ant Ulcer at home Wound debrided: RLE posterior Laterality: Right Anesthesia Used: 4% Lidocaine Solution, Cetacaine Depth: in the subcutaneous layer Percentage of wound debrided: 100 Instrument Used: 7mm curette Tissue Removed: Slough and devitalized tissue Severity: Fat Layer Exposed Amount of bleeding with debridement: Moderate Bleeding Controlled with: Compression and gauze Patient tolerated procedure well - Additional Wound Wound debrided: RLE anterior cluster Laterality: Right Type of Debridement: Excisional debridement Anesthesia Used: 4% Lidocaine Solution, Cetacaine Depth: in the subcutaneous layer Percentage of wound debrided: 100 Instrument Used: 7mm curette Tissue Removed: Slough and devitalized tissue Severity: Fat Layer Exposed Amount of bleeding with debridement: Mild Bleeding Controlled with: Compression and gauze Patient tolerated procedure: Patient tolerated procedure well Assessment/Plan Active Problems (Last Updated 01/11/18 @ 08:41 by Adeline Andres) Venous ulcer of right leg (Chronic) Chronic venous insufficiency (Chronic) Cellulitis (Acute) Morbid obesity (Chronic) Ulcer of right lower extremity with fat layer exposed (Chronic) Lymphedema (Chronic) Assessment: Right posterior lower leg ulcer. Right anterior lower leg ulcer. Left anterior lower leg ulcer - healed. Chronic bilateral lower extremity swelling, edema, and lymphedema. Chronic venous insufficiency Plan: Debridement performed today in clinic as above; the patient generally does not tolerate debridement well. Given the duration of the venous ulcers and failure of the ulcers to respond to standard wound care, we applied and were approved for Puraply, NuShield and Apligraf. The patient has completed 6 applications of Puraply to the posterior right lower extremity ulcer. The patient's RLE ulcers have not consistently improved in size, and I feel this is primarily due to the patient's inability to tolerate thorough debridement and refusal to appropriately utilize compression. I have discussed these factors at length with the patient and discussed the option of undergoing surgical debridement to reduce the amount of bioburden and devitalized tissue present; the patient does not have transportation and thus feels this is not a realistic option for her. She was also offered a referral to the lymphedema clinic, but declined stating she would reach out to the [place] [facility] where she had previously been seen; she has not yet done so. Medihoney was too expensive per patient. The patient has concerns about her ability to visualize/access her exterior ulcer appropriately in order to apply Santyl. She has been able to apply Santyl appropriately to her anterior RLE ulcer. At home wound care instructions: Due to the heavy amount of slough and bioburden, and good response, Santyl will be continued for the patient's anterior RLE ulcer. Due to good response, we will continue the use of silver dressings daily (to be used in a wet-to-dry manner) to aid in removal of devitalized tissue; Aquacel Ag given today. The patient was instructed to wash her bilateral lower extremities ulcers thoroughly with antibacterial soap and water daily prior to applying new dressings. Compression: As previously discussed, lymphedema pumps should be utilized for 1 hour 3 times daily; if this is not well-tolerated, the patient should continue to the pumps as long and frequently as possible, working toward this goal. Offloading: The patient was advised to avoid pressure on her ulcer sites. She is to keep feet elevated at or above waist level when seated. She is to avoid prolonged standing, sitting, or dangling of legs. When driving, she is to perform walking breaks every hour at minimum. Diet: Patient encouraged to increase protein and vitamin C intake while taking caution to avoid high carbohydrate and/or sugar intake. Also instructed to avoid high sodium intake. Labs/cultures/imaging: Labs from 02/21/2020 showed mild decrease in prealbumin but this may be because of infection, negative acute phase reactant. CRP and ESR are elevated but CBC and chemistry were unremarkable. Vascular studies from 2017 were reviewed. Wound cultures collected on 01/03/2020 were positive for 3+ Aeromonas hydrophilia/caviae, 2+ Citrobacter braakii, 1+ Proteus mirabilis, rare Staphylococus aureus, anaerobic cocci, actinomyces odontolyticus, Bacteroides fragilis; beta-lactamase positive. She was previously started on Levaquin and Augmentin and completed a 21-day course of both of these antibiotics. Repeat wound culture results from 02/21/2020 reviewed and were negative for anaerobic bacteria; aerobic culture positive for very rare gram positive constanza, no sensitivities reported. Patient completed an additional 14-day course of Levaquin and Augmentin and her cellulitis has resolved. She has a recurrence of inflamed, erythematous lymphedema of the right medial thigh. We will start doxycycline 100mg PO BID x 7 days and continue to monitor. Follow-up: Return to clinic in 1 week for re-evaluation. Return sooner or report to the emergency room should symptoms worsen, or new symptoms arise. Note: [employer] speech recognition airborne sensor specialist software was used to create portions of this document. Sound-alike and misspelled words, as well as other airborne sensor specialist errors may be contained in the documentation. [id number]: [id number] Shante subq tissue 20 sq cm/< Add On Codes: 26994 Shante subq tissue add-on - x4
== END 2020-05-03 23:59 ==
LOC: WC 09:00
PROVIDERS: PCP Family Medicine; Referring Provider Family Medicine; Visit Provider Nurse Practitioner Family
DX: I83.018 Varicose veins of right lower extremity with ulcer other part of lower leg (principal); L97.812 Non-pressure chronic ulcer of other part of right lower leg with fat layer exposed; I87.2 Venous insufficiency (chronic) (peripheral); L03.115 Cellulitis of right lower limb; I89.0 Lymphedema, not elsewhere classified; M79.89 Other specified soft tissue disorders; I48.91 Unspecified atrial fibrillation; E03.9 Hypothyroidism, unspecified; E66.01 Morbid (severe) obesity due to excess calories; Z79.01 Long term (current) use of anticoagulants; Z79.899 Other long term (current) drug therapy
CPT/HCPCS: 11042; 11045

== ENCOUNTER 2020-05-29 08:15 | Outpatient (RCR) | payer MEDICAID, SELFPAY ==
[2020-05-04 00:14] VITALS: BP 130/51; PULSE 68; RESP 18; TEMP 35.7
[2020-05-15 08:41] VITALS: BP 130/68; PULSE 77; TEMP 36.2; BMI 49.0
--- NOTE | 2020-05-15 09:34 | PCM.WC.PN ---
(1) Venous ulcer of right leg Status: Chronic Code(s): I83.019 - Varicose veins of right lower extremity with ulcer of unspecified site; L97.919 - Non-pressure chronic ulcer of unspecified part of right lower leg with unspecified severity (2) Ulcer of right lower extremity with fat layer exposed Status: Chronic Code(s): L97.912 - Non-pressure chronic ulcer of unspecified part of right lower leg with fat layer exposed (3) Venous insufficiency Status: Chronic (4) Lymphedema Status: Chronic Code(s): I89.0 - Lymphedema, not elsewhere classified (5) Morbid obesity Status: Chronic Code(s): E66.01 - Morbid (severe) obesity due to excess calories (6) Cellulitis of right lower extremity Status: Resolved Code(s): L03.115 - Cellulitis of right lower limb Type of Wound Date of Service: 05/15/20 Chief Complaint: Severe swelling, edema, and lymphedema of the lower extremities with ulcerations of the right lower extremity. History of Wound: To[facility] for evaluation and treatment of bilateral lower leg ulcers. The patient is known [facility] from treatment of prior lower extremity ulcers. She has a PMH significant for chronic lymphedema, venous insufficiency, atrial fibrillation (on Eliquis), morbid obesity, hypothyroidism. She reported development of her posterior right lower leg ulcer in April. She initially was using Manuka honey to this ulcer, but then started using Vaseline instead. She reported her anterior right lower extremity ulcer developed in August, and she had been applying Vaseline to this daily. Her anterior left lower extremity ulcer developed approximately 1 week prior to her initial January 2020 appt, and she had been applying Vaseline to this daily as well. She notes that approximately 4 to 6 weeks prior, the ulcer on her posterior right lower leg began increasing in soreness. She has lymphedema pumps at home, but had not been using these due to reported pain with use which is related to her ulcers. She does not use compression at home. She reports frequent dangling of her legs while seated at her computer for work. She does not frequently elevate her feet when seated. The patient denied any fever, chills, nausea, vomiting, or diarrhea. Denied any increasing redness or swelling of the affected area. She did note foul-smelling drainage from her right lower extremity. She had not been on any recent antibiotics. She reported having lab work done approximately 6 weeks prior; these records will be requested for review multiple times but never obtained. She had lower extremity arterial studies completed 05/16/16 which showed relatively normal arterial perfusion to ankle level bilaterally. Triphasic waveforms were noted at ankle level bilaterally. Resting ankle-brachial indices were bilaterally normal. The right digital-brachial index is normal, consistent with normal arterial perfusion at distal, small-vessel level in the right lower extremity. The left digital-brachial index is mildly diminished, suggesting the presence of mild, distal, small-vessel arterial occlusive disease in the left lower extremity. Wound cultures collected on 01/03/2020 were positive for 3+ Aeromonas hydrophilia/caviae, 2+ Citrobacter braakii, 1+ Proteus mirabilis, rare Staphylococus aureus, anaerobic cocci, actinomyces odontolyticus, Bacteroides fragilis; beta-lactamase positive. She completed courses of Levaquin and Augmentin. Weeks later, she developed a mass of localized lymphedema of her right medial thigh that was red and warm; this resolved following a 14-day course of Levaquin and Augmentin. Progress of Wound: Toña returns today for follow up of ulcers of her right lower extremity. She missed her last 2 appointments with the [facility]. Both anterior and posterior RLE ulcers have a moderate amount of slough and bioburden. She has been applying Santyl to the anterior ervin ulcer and AquacelAg to the posterior leg ulcer. She is tolerating these well. Anterior RLE ulcer has improved significantly in size. She has been generally noncompliant with the use of lymphedema pumps, though she reports increased use of pumps in the last couple of weeks as her ulcer pain has decreased. She generally refuses compression due to reported intolerance. She denies any purulent/malodorous drainage from her ulcers. She has anterior periulcer erythema and tenderness, which I suspect is due to prolonged exposure to moisture from her wound drainage. The skin appears irritated. There is no malodorous drainage. Her posterior ulcer is less tender today and has new, healthy tissue present along the wound edges. She denies fever or chills. The warmth and erythema of her right medial thigh lymphedema has resolved following a course of doxycycline. She has been noncompliant with instructions to elevate her legs more frequently. 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 She has been advised to take walking breaks when driving, but has been noncompliant with these instructions as well. She performs seated work, sitting at a desk without feet elevated. She has been trying to increase her protein intake. - Physical Exam Vital Signs Temp Pulse Resp BP 97.1 F L 77 18 130/68 H 05/15/20 08:41 05/15/20 08:41 05/04/20 00:14 05/15/20 08:41 General: Alert, Cooperative, No apparent distress HEENT: Atraumatic, Normocephalic Oral: Moist Mucosa Lungs: Normal air movement Abdomen: Obese Extremities: No clubbing, No cyanosis, Capillary Refill Less than 3 Seconds, Edema - edema and lymphedema of BLE, Peripheral Pulses Normal Skin: Ulcer/ Wound - RLE ulcers with subcutaneous layer exposed; no probing to bone, tunneling or undermining. Moderate amounts of slough present. No malodor or purulent drainage from either ulcer. New epithelialization of posterior RLE ulcer edges. New epithelialization of anterior RLE ulcer., Rash Present - Anterior ervin ulcer has periulcer erythema and excoriation. No warmth to touch Wound Measurements and Assessment WC - Nurse 1 - General Ulcer Measurement Start: 05/15/20 08:39 Freq: Status: Active Protocol: Activity Type Activity Date Activity User E-Sign Co-Sign Detail Recorded Client Recorded Date Recorded By Document 05/15/20 08:41 RAMON [id number] 05/15/20 08:49 RAMON 05/15/20 08:41 [facility] Nurse 1 [Ulcer Assessment] #8 RLE Post -Current Size (cm) - Length 6.5 -Current Size (cm) - Width 7 -Current Size (cm) - Depth 0.2 -Total Square Cm 45.5 -Exudate Amt Medium -Exudate Type Serosanguineous -Wound Margin Distinct, Outline Attached -Granulation Amt Medium (34-66%) -Granulation Quality Red -Necrosis Amt Medium (34-66%) -Necrotic Tissue Type Adherent Slough -Texture (Irene-wound Skin Appearance) Assessed, Scarring -Moisture (Irene-wound Skin Appearance No Abnormality, ) Assessed -Color (Irene-wound Skin Appearance) No Abnormality, Assessed -Temperature (Irene-wound Skin No Abnormality Appearance) (Pt Warm) -Tenderness on Palpation (Irene-wound No Skin Appearance) -Ulcer Cleansing Rinsed/ Irrigated with Saline -Foul Odor after Cleansing No -Anesthetic Used 4% Lidocaine Solution #7 RLE Ant Cluster -Current Size (cm) - Length 3.2 -Current Size (cm) - Width 5.5 -Current Size (cm) - Depth 0.1 -Total Square Cm 17.60 -Exudate Amt Medium -Exudate Type Serosanguineous -Wound Margin Distinct, Outline Attached -Granulation Amt Medium (34-66%) -Granulation Quality Red -Necrosis Amt Medium (34-66%) -Necrotic Tissue Type Adherent Slough -Texture (Irene-wound Skin Appearance) Assessed, Scarring -Moisture (Irene-wound Skin Appearance No Abnormality, ) Assessed -Color (Irene-wound Skin Appearance) No Abnormality, Assessed -Temperature (Irene-wound Skin No Abnormality Appearance) (Pt Warm) -Tenderness on Palpation (Irene-wound No Skin Appearance) -Ulcer Cleansing Rinsed/ Irrigated with Saline -Foul Odor after Cleansing No -Anesthetic Used 4% Lidocaine Solution Musculoskeletal: Tenderness - On debridement of RLE ulcers and palpation of anterior RLE Psych/Mental Status: Normal Affect, Appropriate Debridement Note Wound debrided: RLE posterior Laterality: Right Type of Debridement: Excisional debridement Anesthesia Used: 4% Lidocaine Solution, Cetacaine Depth: in the subcutaneous layer Percentage of wound debrided: 100 Instrument Used: 7mm curette Tissue Removed: Slough and devitalized tissue Severity: Fat Layer Exposed Amount of bleeding with debridement: Mild Bleeding Controlled with: Compression and gauze Patient tolerated procedure well - Additional Wound Wound debrided: RLE anterior cluster Laterality: Right Type of Debridement: Excisional debridement Anesthesia Used: 4% Lidocaine Solution, Cetacaine Depth: in the subcutaneous layer Percentage of wound debrided: 100 Instrument Used: 7mm curette Tissue Removed: Slough and devitalized tissue Severity: Fat Layer Exposed Amount of bleeding with debridement: Mild Bleeding Controlled with: Compression and gauze Patient tolerated procedure: Patient did not tolerate procedure well Assessment/Plan Assessment: Right posterior lower leg ulcer. Right anterior lower leg ulcer. Left anterior lower leg ulcer - healed. Chronic bilateral lower extremity swelling, edema, and lymphedema. Chronic venous insufficiency Plan: Debridement performed today in clinic as above; the patient generally does not tolerate debridement well. Given the duration of the venous ulcers and failure of the ulcers to respond to standard wound care, we applied and were approved for Puraply, NuShield and Apligraf. The patient had completed 6 applications of Puraply to the posterior right lower extremity ulcer. Puraply was then discontinued due to failure of wound to improve in size and appearance, which I suspect was due to the patient's inability to tolerate thorough debridement and refusal to appropriately utilize compression. With an increase in the use of her lymphedema pumps, the patient's wound sizes have improved and she is now able to better tolerate debridement of her posterior RLE ulcer. Puraply was again applied for and approved. Puraply (fenestrated) was applied to her posterior RLE ulcer today. 100% of the product was used. This was covered with Adaptic touch and secured with Steri-Strips. An ABD dressing will be placed atop the Adaptic touch to absorb any wound drainage. The ABD dressing may be changed daily or more frequently as needed due to contamination. The patient was instructed to keep the posterior RLE dressing clean and dry, covering it while showering. She has been able to apply Santyl appropriately to her anterior RLE ulcer and has had a good response to this. This will be continued to the anterior RLE ulcer. Calmoseptine will be initiated to apply to the anterior periulcer area for skin irritation/excoriation which I feel is most likely due to prolonged exposure to moisture from wound drainage. Patient was instructed to cleanse the area thoroughly before applying new, stepping. The patient was instructed to wash her anterior right lower extremity ulcer thoroughly with antibacterial soap and water daily prior to applying new Santyl and calmoseptine. Compression: As previously discussed, lymphedema pumps should be utilized for 1 hour 3 times daily; if this is not well-tolerated, the patient should continue to the pumps as long and frequently as possible, working toward this goal. Offloading: The patient was advised to avoid pressure on her ulcer sites. She is to keep feet elevated at or above waist level when seated. She is to avoid prolonged standing, sitting, or dangling of legs. When driving, she is to perform walking breaks every hour at minimum. Diet: Patient encouraged to increase protein and vitamin C intake while taking caution to avoid high carbohydrate and/or sugar intake. Also instructed to avoid high sodium intake. Labs/cultures/imaging: Labs from 02/21/2020 showed mild decrease in prealbumin but this may be because of infection, negative acute phase reactant. CRP and ESR are elevated but CBC and chemistry were unremarkable. Vascular studies from 2017 were reviewed. Wound cultures collected on 01/03/2020 were positive for 3+ Aeromonas hydrophilia/caviae, 2+ Citrobacter braakii, 1+ Proteus mirabilis, rare Staphylococus aureus, anaerobic cocci, actinomyces odontolyticus, Bacteroides fragilis; beta-lactamase positive. She was previously started on Levaquin and Augmentin and completed a 21-day course of both of these antibiotics. Repeat wound culture results from 02/21/2020 reviewed and were negative for anaerobic bacteria; aerobic culture positive for very rare gram positive constanza, no sensitivities reported. Patient completed an additional 14-day course of Levaquin and Augmentin and her cellulitis has resolved. Subsequent development of erythema and warmth of her right medial lymphedema resolved following a course of doxycycline. Follow-up: Return to clinic in 1 week for re-evaluation. Return sooner or report to the emergency room should symptoms worsen, or new symptoms arise. Note: [employer] speech recognition seat pack inspector software was used to create portions of this document. Sound-alike and misspelled words, as well as other seat pack inspector errors may be contained in the documentation. [id number]: [id number] Shante subq tissue 20 sq cm/< 150xxx-152xx: [id number] Skin sub graft trnk/arm/leg
--- NOTE | 2020-05-22 13:14 | WC ---
Patient was contacted to verify that skin sub had been removed and that the appropriate dressing was being used. Patient stated that she had taken the skin sub off on Mon05/20/20 and was using Aquacel Ag on the wound. Patient also inquired about having the provider call in an ATB for what she called cellulitis. She was informed that without seeing the area that no prescription would be called in, she was advised to see her PCP, an Urgent care or the ED for evaluation and treatment.
[2020-05-29 08:28] VITALS: BP 159/87; PULSE 64; TEMP 36.1; BMI 49.0
--- NOTE | 2020-05-29 10:21 | PCM.WC.PN ---
(1) Venous ulcer of right leg Status: Chronic Code(s): I83.019 - Varicose veins of right lower extremity with ulcer of unspecified site; L97.919 - Non-pressure chronic ulcer of unspecified part of right lower leg with unspecified severity (2) Ulcer of right lower extremity with fat layer exposed Status: Chronic Code(s): L97.912 - Non-pressure chronic ulcer of unspecified part of right lower leg with fat layer exposed (3) Venous insufficiency Status: Chronic (4) Lymphedema Status: Chronic Code(s): I89.0 - Lymphedema, not elsewhere classified (5) Morbid obesity Status: Chronic Code(s): E66.01 - Morbid (severe) obesity due to excess calories (6) Cellulitis of right lower extremity Status: Acute Code(s): L03.115 - Cellulitis of right lower limb Type of Wound Date of Service: 05/29/20 Chief Complaint: Severe swelling, edema, and lymphedema of the lower extremities with ulcerations of the right lower extremity. History of Wound: [facility] for evaluation and treatment of bilateral lower leg ulcers. The patient is known [facility] from treatment of prior lower extremity ulcers. She has a PMH significant for chronic lymphedema, venous insufficiency, atrial fibrillation (on Eliquis), morbid obesity, hypothyroidism. She reported development of her posterior right lower leg ulcer in April. She initially was using Manuka honey to this ulcer, but then started using Vaseline instead. She reported her anterior right lower extremity ulcer developed in August, and she had been applying Vaseline to this daily. Her anterior left lower extremity ulcer developed approximately 1 week prior to her initial January 2020 appt, and she had been applying Vaseline to this daily as well. She notes that approximately 4 to 6 weeks prior, the ulcer on her posterior right lower leg began increasing in soreness. She has lymphedema pumps at home, but had not been using these due to reported pain with use which is related to her ulcers. She does not use compression at home. She reports frequent dangling of her legs while seated at her computer for work. She does not frequently elevate her feet when seated. The patient denied any fever, chills, nausea, vomiting, or diarrhea. Denied any increasing redness or swelling of the affected area. She did note foul-smelling drainage from her right lower extremity. She had not been on any recent antibiotics. She reported having lab work done approximately 6 weeks prior; these records will be requested for review multiple times but never obtained. She had lower extremity arterial studies completed 05/16/16 which showed relatively normal arterial perfusion to ankle level bilaterally. Triphasic waveforms were noted at ankle level bilaterally. Resting ankle-brachial indices were bilaterally normal. The right digital-brachial index is normal, consistent with normal arterial perfusion at distal, small-vessel level in the right lower extremity. The left digital-brachial index is mildly diminished, suggesting the presence of mild, distal, small-vessel arterial occlusive disease in the left lower extremity. Wound cultures collected on 01/03/2020 were positive for 3+ Aeromonas hydrophilia/caviae, 2+ Citrobacter braakii, 1+ Proteus mirabilis, rare Staphylococus aureus, anaerobic cocci, actinomyces odontolyticus, Bacteroides fragilis; beta-lactamase positive. She completed courses of Levaquin and Augmentin. Weeks later, she developed a mass of localized lymphedema of her right medial thigh that was red and warm; this resolved following a 14-day course of Levaquin and Augmentin. Progress of Wound: Toña returns today for follow up of ulcers of her right lower extremity. She missed her last [facility]. Both anterior and posterior RLE ulcers have a moderate amount of slough and bioburden. She has been applying Santyl to the anterior ervin ulcer. Puraply #1 (fenestrated) was applied to the posterior leg ulcer at her last visit on 05/15/2020. When this came off, she resumed use of Aquacel Ag dressings to the posterior leg ulcer. She is tolerating her wound dressings well. Anterior RLE ulcer has improved significantly in size. Posterior RLE ulcer has also improved in size and appearance. The patient has been generally noncompliant with the use of lymphedema pumps, though she reports increased use of pumps in the last couple of weeks as her ulcer pain has decreased. She generally refuses compression due to reported intolerance. She denies any purulent/malodorous drainage from her ulcers. She has anterior periulcer erythema and tenderness, which I suspect is due to prolonged exposure to moisture from her wound drainage. The skin appears irritated. Calmoseptine ointment has been of some benefit for skin irritation. Her posterior RLE ulcer has mild erythema and irritation surrounding the ulcer, which I suspect is due to her adhesive sensitivity. There is no purulent/malodorous drainage. She denies fever or chills. The warmth and erythema of her right medial thigh lymphedema has recurred approximately 1 week ago. She denies tenderness of the area. She has been noncompliant with instructions to elevate her legs more frequently. 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 She has been advised to take walking breaks when driving, but has been noncompliant with these instructions as well. She performs seated work, sitting at a desk without feet elevated. She has been trying to increase her protein intake. - Physical Exam Vital Signs Temp Pulse Resp BP 96.9 F L 64 18 159/87 H 05/29/20 08:28 05/29/20 08:28 05/04/20 00:14 05/29/20 08:28 General: Alert, Cooperative, No apparent distress Oral: Moist Mucosa Neck: Trachea Midline Lungs: Normal air movement Abdomen: Obese Extremities: No clubbing, No cyanosis, Capillary Refill Less than 3 Seconds, Edema - Bilateral lower extremity edema and lymphedema, Peripheral Pulses Normal Skin: Ulcer/ Wound - RLE ulcers with subcutaneous layer exposed; no probing to bone, tunneling or undermining. Moderate slough present. No malodor or purulent drainage from either ulcer. New epithelialization of posterior RLE ulcer edges. New epithelialization of the anterior RLE ulcer., Rash Present - Anterior RLE ulcer has periulcer erythema and excoriation. No warmth to touch. Posterior RLE ulcer has periulcer erythema and excoriation, which I suspect is due to adhesive sensitivity. Right medial localized massive lymphedema of thigh is warm and erythematous, with no open wounds. Wound Measurements and Assessment WC - Nurse 1 - General Ulcer Measurement Start: 05/15/20 08:39 Freq: Status: Active Protocol: Activity Type Activity Date Activity User E-Sign Co-Sign Detail Recorded Client Recorded Date Recorded By Document 05/29/20 08:28 KR [id number] 05/29/20 08:34 KR 05/29/20 08:28 Wound Center Nurse 1 [Ulcer Assessment] #8 RLE Post -Current Size (cm) - Length 7.6 -Current Size (cm) - Width 6 -Current Size (cm) - Depth 0.2 -Total Square Cm 45.6 -Exudate Amt Medium -Exudate Type Serosanguineous -Wound Margin Distinct, Outline Attached -Granulation Amt Medium (34-66%) -Granulation Quality Red -Necrosis Amt Medium (34-66%) -Necrotic Tissue Type Adherent Slough -Texture (Irene-wound Skin Appearance) Assessed, Scarring -Moisture (Irene-wound Skin Appearance No Abnormality, ) Assessed -Color (Irene-wound Skin Appearance) No Abnormality, Assessed -Temperature (Irene-wound Skin No Abnormality Appearance) (Pt Warm) -Tenderness on Palpation (Irene-wound No Skin Appearance) -Ulcer Cleansing Rinsed/ Irrigated with Saline -Foul Odor after Cleansing No -Anesthetic Used 4% Lidocaine Solution #7 RLE Ant Cluster -Current Size (cm) - Length 6.3 -Current Size (cm) - Width 6.7 -Current Size (cm) - Depth 0.1 -Total Square Cm 42.21 -Exudate Amt Medium -Exudate Type Serosanguineous -Wound Margin Distinct, Outline Attached -Granulation Amt Medium (34-66%) -Granulation Quality Red -Necrosis Amt Medium (34-66%) -Necrotic Tissue Type Adherent Slough -Texture (Irene-wound Skin Appearance) Assessed, Scarring -Moisture (Irene-wound Skin Appearance No Abnormality, ) Assessed -Color (Irene-wound Skin Appearance) No Abnormality, Assessed -Temperature (Irene-wound Skin No Abnormality Appearance) (Pt Warm) -Tenderness on Palpation (Irene-wound No Skin Appearance) -Ulcer Cleansing Rinsed/ Irrigated with Saline -Foul Odor after Cleansing No -Anesthetic Used 4% Lidocaine Solution WC - Nurse 2 - General Ulcer CM Notes Start: 05/15/20 08:39 Freq: Status: Active Protocol: Activity Type Activity Date Activity User E-Sign Co-Sign Detail Recorded Client Recorded Date Recorded By Document 05/29/20 09:58 PEDRO LUIS [id number] 05/29/20 10:01 PL 05/29/20 09:58 Wound Center Nurse 2 [Procedure/Treatment] #8 RLE Post -Time 09:10 -Correct Patient Yes -Correct Side, Site, Position Yes -Correct Procedure Yes -Procedure Performed Yes -Type of Procedure Debridement -Clinical Debridement Subcutaneous -Tissue Removed Subcutaneous -Post Debridement (cm) - Length 5.2 -Post Debridement (cm) - Width 6.0 -Post Debridement (cm) - Depth 0.1 -Total Square (Post) (cm) 31.20 -Area of Debridement (cm) - Length 5.2 -Area of Debridement (cm) - Width 6.0 -Total Square (Area) (cm) 31.20 -Tunneling No -Undermining/Tunneling No -Circular Undermining No -Wound/Ulcer Outcome Not Healed -Ulcer Cleansing Rinsed/ Irrigated with Saline -Foul Odor after Cleansing No -Bioengineered Tissue Yes -Type of Bioengineered Tissue Apligraf -Expiration Date 06/09/20 -Product Lot Number [id number] -Percent Used 100 -Lot number of Saline Used [id number] -Bleeding Controlled with Pressure -Treatment Response Procedure Tolerated Well -Debridement - Subq, 1st 20sq cm No -Apply Skin Sub - 1st 25 sq cm - Legs 1 -Apligraf (per sq cm) 44 Query Text:1 sheet = 44 sq cm #7 RLE Ant Cluster -Time 09:10 -Correct Patient Yes -Correct Side, Site, Position Yes -Correct Procedure Yes -Procedure Performed Yes -Type of Procedure Debridement -Clinical Debridement Subcutaneous -Tissue Removed Subcutaneous -Post Debridement (cm) - Length 2.1 -Post Debridement (cm) - Width 1.1 -Post Debridement (cm) - Depth 0.1 -Total Square (Post) (cm) 2.31 -Area of Debridement (cm) - Length 2.1 -Area of Debridement (cm) - Width 1.1 -Total Square (Area) (cm) 2.31 -Tunneling No -Undermining/Tunneling No -Circular Undermining No -Wound/Ulcer Outcome Not Healed -Ulcer Cleansing Rinsed/ Irrigated with Saline -Foul Odor after Cleansing No -Bioengineered Tissue No -Debridement - Subq, 1st 20sq cm Yes [See Physician Procedure note for Specifics] Pain Scale: 0-10 Numeric [Pain] -Is Patient Pain Free? Yes WC - Nurse 3 - General Ulcer D/C NN Start: 05/15/20 08:39 Freq: Status: Active Protocol: Activity Type Activity Date Activity User E-Sign Co-Sign Detail Recorded Client Recorded Date Recorded By Document 05/29/20 09:45 RAMON [id number] 05/29/20 09:46 KR 05/29/20 09:45 Wound Care Nurse 3 [Wound Dressing] #8 RLE Post -Primary Dressing Covered/Secured Dry Gauze, with Secured with Tape #7 RLE Ant Cluster -Primary Dressing Applied C Hydrogel ($) -Primary Dressing Covered/Secured Dry Gauze, with Secured with Tape Pain Scale: 0-10 Numeric [Pain] -Is Patient Pain Free? Yes WC - Visit Discharge [Visit Discharge Information] -Discharge Condition Stable -Ambulatory Status Ambulatory -Transportation Private Auto Psych/Mental Status: Normal Affect, Appropriate Debridement Note Post-Debridement Measurements/Treatment WC - Nurse 2 - General Ulcer CM Notes Start: 05/15/20 08:39 Freq: Status: Active Protocol: Activity Type Activity Date Activity User E-Sign Co-Sign Detail Recorded Client Recorded Date Recorded By Document 05/15/20 12:12 PL [id number] 05/15/20 12:18 PL Document 05/29/20 09:58 PL [id number] 05/29/20 10:01 PL 05/15/20 05/29/20 12:12 09:58 Wound Center Nurse 2 #8 RLE Post -Time 09:00 09:10 -Correct Patient Yes Yes -Correct Side, Site, Position Yes Yes -Correct Procedure Yes Yes -Procedure Performed Yes Yes -Type of Procedure Debridement Debridement -Clinical Debridement Subcutaneous Subcutaneous -Tissue Removed Subcutaneous Subcutaneous -Post Debridement (cm) - Length 7.2 5.2 -Post Debridement (cm) - Width 5.8 6.0 -Post Debridement (cm) - Depth 0.1 0.1 -Total Square (Post) (cm) 41.76 31.20 -Area of Debridement (cm) - Length 7.2 5.2 -Area of Debridement (cm) - Width 5.8 6.0 -Total Square (Area) (cm) 41.76 31.20 -Tunneling No No -Undermining/Tunneling No No -Circular Undermining No No -Wound/Ulcer Outcome Not Healed Not Healed -Ulcer Cleansing Rinsed/ Rinsed/ Irrigated with Irrigated with Saline Saline -Foul Odor after Cleansing No No -Bioengineered Tissue Yes Yes -Type of Bioengineered Tissue PuraPly AM Apligraf -Expiration Date 08/23/22 06/09/20 -Product Lot Number [id number] -Percent Used 100 100 -Lot number of Saline Used [id number] -Bleeding Controlled with Pressure Pressure -Treatment Response Procedure Procedure Tolerated Well Tolerated Well -Debridement - Subq, 1st 20sq cm No No -Apply Skin Sub - 1st 25 sq cm - Legs 1 1 -Apligraf (per sq cm) 44 Query Text:1 sheet = 44 sq cm -PuraPly AM (per sq cm) 16 #7 RLE Ant Cluster -Time 09:00 09:10 -Correct Patient Yes Yes -Correct Side, Site, Position Yes Yes -Correct Procedure Yes Yes -Procedure Performed Yes Yes -Type of Procedure Debridement Debridement -Clinical Debridement Subcutaneous Subcutaneous -Tissue Removed Subcutaneous Subcutaneous -Post Debridement (cm) - Length 2.8 2.1 -Post Debridement (cm) - Width 1.5 1.1 -Post Debridement (cm) - Depth 0.1 0.1 -Total Square (Post) (cm) 4.20 2.31 -Area of Debridement (cm) - Length 2.8 2.1 -Area of Debridement (cm) - Width 1.5 1.1 -Total Square (Area) (cm) 4.20 2.31 -Tunneling No No -Undermining/Tunneling No No -Circular Undermining No No -Wound/Ulcer Outcome Not Healed Not Healed -Ulcer Cleansing Rinsed/ Rinsed/ Irrigated with Irrigated with Saline Saline -Foul Odor after Cleansing No No -Bioengineered Tissue No No -Debridement - Subq, 1st 20sq cm Yes Yes Pain Scale: 0-10 Numeric Is Patient Pain Free? Yes Yes WC - Nurse 3 - General Ulcer D/C NN Start: 05/15/20 08:39 Freq: Status: Active Protocol: Activity Type Activity Date Activity User E-Sign Co-Sign Detail Recorded Client Recorded Date Recorded By Document 05/15/20 12:12 PL [id number] 05/15/20 12:18 PL Document 05/29/20 09:45 KR [id number] 05/29/20 09:46 KR 05/15/20 05/29/20 12:12 09:45 Pain Scale: 0-10 Numeric Is Patient Pain Free? Yes Yes Wound Care Nurse 3 #8 RLE Post -Ulcer Cleansing Rinsed/ Irrigated with Saline -Foul Odor after Cleansing No -Other Dressing ABD -Primary Dressing Covered/Secured with Secured with Dry Gauze, Tape Secured with Tape #7 RLE Ant Cluster -Ulcer Cleansing Rinsed/ Irrigated with Saline -Foul Odor after Cleansing No -Primary Dressing Applied C Hydrogel ($) -Other Dressing Santyl, Calmoseptine to irene wound -Primary Dressing Covered/Secured with Dry Gauze & Dry Gauze, Roll Gauze, Secured with Secured with Tape Tape WC - Visit Discharge Discharge Condition Stable Stable Ambulatory Status Ambulatory Ambulatory Transportation Private Auto Private Auto Clinical Summary of Care Provided Yes Wound debrided: RLE posterior Laterality: Right Type of Debridement: Excisional debridement Anesthesia Used: 4% Lidocaine Solution, Cetacaine Depth: in the subcutaneous layer Percentage of wound debrided: 100 Instrument Used: 7mm curette Tissue Removed: Slough and devitalized tissue Severity: Fat Layer Exposed Amount of bleeding with debridement: Moderate Bleeding Controlled with: Pressure Patient tolerated procedure well - Additional Wound Wound debrided: RLE anterior Laterality: Right Type of Debridement: Excisional debridement Anesthesia Used: 4% Lidocaine Solution, Cetacaine Depth: in the subcutaneous layer Percentage of wound debrided: 100 Instrument Used: 5mm curette Tissue Removed: Slough and devitalized tissue Severity: Fat Layer Exposed Amount of bleeding with debridement: Mild Bleeding Controlled with: Compression and gauze Patient tolerated procedure: Patient did not tolerate procedure well Assessment/Plan Active Problems (Last Updated 01/11/18 @ 08:41 by Adeline Andres) Venous ulcer of right leg (Chronic) Cellulitis of right lower extremity (Acute) Venous insufficiency (Chronic) Morbid obesity (Chronic) Ulcer of right lower extremity with fat layer exposed (Chronic) Lymphedema (Chronic) Assessment: Right posterior lower leg ulcer. Right anterior lower leg ulcer. Left anterior lower leg ulcer - healed. Chronic bilateral lower extremity swelling, edema, and lymphedema. Chronic venous insufficiency Plan: Debridement performed today in clinic as above; the patient generally does not tolerate debridement well. Given the duration of the venous ulcers and failure of the ulcers to respond to standard wound care, we applied and were approved for Puraply, NuShield and Apligraf. The patient had completed 6 applications of Puraply to the posterior right lower extremity ulcer. Puraply was then discontinued due to failure of wound to improve in size and appearance, which I suspect was due to the patient's inability to tolerate thorough debridement and refusal to appropriately utilize compression. With an increase in the use of her lymphedema pumps, the patient's wound sizes have improved and she is now able to better tolerate debridement of her posterior RLE ulcer. Puraply was again applied for and approved. Puraply #1 (fenestrated) was applied to her posterior RLE ulcer on 05/15/2020. Apligraf #1 (advanced skin substitute #2) was applied to the posterior RLE ulcer today. 100% of the product was used. This was covered with a wound veil and secured with Steri-Strips. Skin prep was avoided due to the possibility of contributing to patient's skin sensitivity. An ABD dressing will be placed atop the Adaptic touch to absorb any wound drainage. The ABD dressing may be changed daily or more frequently as needed due to contamination. The patient was instructed to keep the posterior RLE dressing clean and dry, covering it while showering. She was instructed to leave the Apligraf in place until her visit next week. She has been able to apply Santyl appropriately to her anterior RLE ulcer and has had a good response to this. This will be continued to the anterior RLE ulcer. Calmoseptine will be continued to the anterior periulcer area for skin irritation/excoriation which I feel is most likely due to prolonged exposure to moisture from wound drainage. Patient was instructed to cleanse the area thoroughly before applying new. The patient was instructed to wash her anterior right lower extremity ulcer thoroughly with antibacterial soap and water daily prior to applying new Santyl and calmoseptine. Compression: As previously discussed, lymphedema pumps should be utilized for 1 hour 3 times daily; if this is not well-tolerated, the patient should continue to the pumps as long and frequently as possible, working toward this goal. Offloading: The patient was advised to avoid pressure on her ulcer sites. She is to keep feet elevated at or above waist level when seated. She is to avoid prolonged standing, sitting, or dangling of legs. When driving, she is to perform walking breaks every hour at minimum. Diet: Patient encouraged to increase protein and vitamin C intake while taking caution to avoid high carbohydrate and/or sugar intake. Also instructed to avoid high sodium intake. Labs/cultures/imaging: Labs from 02/21/2020 showed mild decrease in prealbumin but this may be because of infection, negative acute phase reactant. CRP and ESR are elevated but CBC and chemistry were unremarkable. Vascular studies from 2017 were reviewed. Wound cultures collected on 01/03/2020 were positive for 3+ Aeromonas hydrophilia/caviae, 2+ Citrobacter braakii, 1+ Proteus mirabilis, rare Staphylococus aureus, anaerobic cocci, actinomyces odontolyticus, Bacteroides fragilis; beta-lactamase positive. She was previously started on Levaquin and Augmentin and completed a 21-day course of both of these antibiotics. Repeat wound culture results from 02/21/2020 reviewed and were negative for anaerobic bacteria; aerobic culture positive for very rare gram positive constanza, no sensitivities reported. Patient completed an additional 14-day course of Levaquin and Augmentin and her cellulitis has resolved. Subsequent development of erythema and warmth of her right medial lymphedema resolved following a course of doxycycline. Erythema and warmth of her right medial thigh lymphedema has recurred and she will be started on cephalexin 500 mg p.o. 3 times daily x10 days. Follow-up: Return to clinic in 1 week for re-evaluation. Return sooner or report to the emergency room should symptoms worsen, or new symptoms arise. Note: [employer] speech recognition office supervisor software was used to create portions of this document. Sound-alike and misspelled words, as well as other office supervisor errors may be contained in the documentation. [id number]: [id number] Skin sub graft trnk/arm/leg - [id number] + [id number] (2 separate wounds)
== END 2020-05-31 23:59 ==
LOC: WC 08:15
PROVIDERS: PCP Family Medicine; Referring Provider Family Medicine; Visit Provider Nurse Practitioner Family
DX: I83.018 Varicose veins of right lower extremity with ulcer other part of lower leg (principal); L97.812 Non-pressure chronic ulcer of other part of right lower leg with fat layer exposed; I87.2 Venous insufficiency (chronic) (peripheral); I89.0 Lymphedema, not elsewhere classified; I48.91 Unspecified atrial fibrillation; E03.9 Hypothyroidism, unspecified; E66.01 Morbid (severe) obesity due to excess calories; Z79.01 Long term (current) use of anticoagulants; Z79.899 Other long term (current) drug therapy; Z91.19 Patient's noncompliance with other medical treatment and regimen
CPT/HCPCS: 11042; 15271; Q4101; Q4196

== ENCOUNTER 2020-06-26 08:15 | Outpatient (RCR) | payer MEDICAID, SELFPAY ==
[2020-06-01 00:14] VITALS: BP 159/87; PULSE 64; RESP 18; TEMP 36.1
[2020-06-05 08:26] VITALS: BP 150/51; PULSE 60; TEMP 36.2; BMI 49.0
--- NOTE | 2020-06-05 12:30 | PN.PCM_ITS ---
(1) Ulcer of right lower extremity with fat layer exposed Status: Chronic Code(s): L97.912 - Non-pressure chronic ulcer of unspecified part of right lower leg with fat layer exposed (2) Venous insufficiency Status: Chronic (3) Lymphedema Status: Chronic Code(s): I89.0 - Lymphedema, not elsewhere classified (4) Morbid obesity Status: Chronic Code(s): E66.01 - Morbid (severe) obesity due to excess calories (5) Venous ulcer of right leg Status: Chronic Code(s): I83.019 - Varicose veins of right lower extremity with ulcer of unspecified site; L97.919 - Non-pressure chronic ulcer of unspecified part of right lower leg with unspecified severity (6) Cellulitis of right lower extremity Status: Acute Code(s): L03.115 - Cellulitis of right lower limb Type of Wound Date of Service: 06/05/20 Chief Complaint: Severe swelling, edema, and lymphedema of the lower extremities with ulcerations of the right lower extremity. History of Wound: [facility] for evaluation and treatment of bilateral lower leg ulcers. The patient is known [facility] treatment of prior lower extremity ulcers. She has a PMH significant for chronic lymphedema, venous insufficiency, atrial fibrillation (on Eliquis), morbid obesity, hypothyroidism. She reported development of her posterior right lower leg ulcer in April. She initially was using Manuka honey to this ulcer, but then started using Vaseline instead. She reported her anterior right lower extremity ulcer developed in August, and she had been applying Vaseline to this daily. Her anterior left lower extremity ulcer developed approximately 1 week prior to her initial January 2020 appt, and she had been applying Vaseline to this daily as well. She notes that approximately 4 to 6 weeks prior, the ulcer on her posterior right lower leg began increasing in soreness. She has lymphedema pumps at home, but had not been using these due to reported pain with use which is related to her ulcers. She does not use compression at home. She reports frequent dangling of her legs while seated at her computer for work. She does not frequently elevate her feet when seated. The patient denied any fever, chills, nausea, vomiting, or diarrhea. Denied any increasing redness or swelling of the affected area. She did note foul-smelling drainage from her right lower extremity. She had not been on any recent antibiotics. She reported having lab work done approximately 6 weeks prior; these records will be requested for review multiple times but never obtained. She had lower extremity arterial studies completed 05/16/16 which showed relatively normal arterial perfusion to ankle level bilaterally. Triphasic waveforms were noted at ankle level bilaterally. Resting ankle-brachial indices were bilaterally normal. The right digital-brachial index is normal, consistent with normal arterial perfusion at distal, small-vessel level in the right lower extremity. The left digital- brachial index is mildly diminished, suggesting the presence of mild, distal, small-vessel arterial occlusive disease in the left lower extremity. Wound cultures collected on 01/03/2020 were positive for 3+ Aeromonas hydrophilia/caviae, 2+ Citrobacter braakii, 1+ Proteus mirabilis, rare Staphylococus aureus, anaerobic cocci, actinomyces odontolyticus, Bacteroides fragilis; beta-lactamase positive. She completed courses of Levaquin and Augmentin. Weeks later, she developed a mass of localized lymphedema of her right medial thigh that was red and warm; this resolved following a 14-day course of Levaquin and Augmentin. Progress of Wound: Toña returns today for follow up of ulcers of her right lower extremity. The anterior RLE ulcer has a moderate amount of slough and bioburden. She has been applying Santyl to the anterior RLE ulcer and tolerating this well. Irene-ulcer excoriation and erythema has diminished with the use of calmoseptine ointment. Apligraf #2 was applied to the posterior leg ulcer at her last visit on 05/29/20. This came off after 3-4 days and she resumed use of Aquacel Ag dressings to the posterior leg ulcer. She is tolerating her wound dressings well. She reports her dressings often come off because she is unable to visualize her posterior RLE ulcer, and the ABD pad adheres to the wound veil and steri strips and these become detached when she changes the ABD. Both RLE ulcers have improved. The patient has been generally noncompliant with the use of lymphedema pumps. She generally refuses compression due to reported intolerance. She denies any purulent/malodorous drainage from her ulcers. She had anterior periulcer erythema and tenderness, which I suspect was due to prolonged exposure to moisture from her wound drainage; Calmoseptine ointment has been of benefit for her skin irritation. She denies fever or chills. The warmth and erythema of her right medial thigh lymphedema has recurred approximately 1 week ago. This has improved with the use of cephalexin 500mg PO TID. She has been noncompliant with instructions to elevate her legs more frequently. 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 She has been advised to take walking breaks when driving, but has been noncompliant with these instructions as well. She performs seated work, sitting at a desk without feet elevated. She has been trying to increase her protein intake. - Physical Exam Vital Signs Temp Pulse Resp BP 97.1 F L 60 18 150/51 H 06/05/20 08:26 06/05/20 08:26 06/01/20 00:14 06/05/20 08:26 General: Alert, Cooperative, No apparent distress Oral: Moist Mucosa Lungs: Normal air movement Abdomen: Obese Extremities: No clubbing, No cyanosis, Edema, Peripheral Pulses Normal Skin: Ulcer/ Wound - RLE ulcers with subcutaneous layer exposed; no probing to bone, tunneling, or undermining. Moderate slough present. No malodor or purulent drainage. New epithelialization of posterior RLE ulcer edges., Rash Present - Anterior RLE ulcer has periulcer erythema and excoriation which is improved with the use of calmoseptine. There is no warmth to touch. Right medial localized mass of lymphedema of thigh is mildly erythematous, though warmth and tenderness have improved. Wound Measurements and Assessment WC - Nurse 1 - General Ulcer Measurement Start: 06/05/20 08:26 Freq: Status: Active Protocol: Activity Type Activity Date Activity User E-Sign Co-Sign Detail Recorded Client Recorded Date Recorded By Document 06/05/20 08:26 KR [id number] 06/05/20 08:28 KR 06/05/20 08:26 Wound Center Nurse 1 [Ulcer Assessment] #8 RLE Post -Current Size (cm) - Length 8 -Current Size (cm) - Width 6.5 -Current Size (cm) - Depth 0.2 -Total Square Cm 52.0 -Exudate Amt Medium -Exudate Type Serosanguineous -Wound Margin Distinct, Outline Attached -Granulation Amt Medium (34-66%) -Granulation Quality Red -Necrosis Amt Medium (34-66%) -Necrotic Tissue Type Adherent Slough -Texture (Irene-wound Skin Appearance) Assessed, Scarring -Moisture (Irene-wound Skin Appearance No Abnormality, ) Assessed -Color (Irene-wound Skin Appearance) No Abnormality, Assessed -Temperature (Irene-wound Skin No Abnormality Appearance) (Pt Warm) -Tenderness on Palpation (Irene-wound No Skin Appearance) -Ulcer Cleansing Rinsed/ Irrigated with Saline -Foul Odor after Cleansing No -Anesthetic Used 4% Lidocaine Solution #7 RLE Ant Cluster -Current Size (cm) - Length 4.7 -Current Size (cm) - Width 9 -Current Size (cm) - Depth 0.1 -Total Square Cm 42.3 -Exudate Amt Small -Exudate Type Serosanguineous -Wound Margin Distinct, Outline Attached -Granulation Amt Medium (34-66%) -Granulation Quality Red -Necrosis Amt Medium (34-66%) -Necrotic Tissue Type Adherent Slough -Texture (Irene-wound Skin Appearance) Assessed, Scarring -Moisture (Irene-wound Skin Appearance No Abnormality, ) Assessed -Color (Irene-wound Skin Appearance) No Abnormality, Assessed -Temperature (Ierne-wound Skin No Abnormality Appearance) (Pt Warm) -Tenderness on Palpation (Irene-wound No Skin Appearance) -Ulcer Cleansing Rinsed/ Irrigated with Saline -Foul Odor after Cleansing No -Anesthetic Used 4% Lidocaine Solution - Nurse 3 - General Ulcer D/C NN Start: 06/05/20 08:26 Freq: Status: Active Protocol: Activity Type Activity Date Activity User E-Sign Co-Sign Detail Recorded Client Recorded Date Recorded By Document 06/05/20 09:27 RAMON [id number] 06/05/20 09:28 RAMON 06/05/20 09:27 Wound Care Nurse 3 [Wound Dressing] #8 RLE Post -Primary Dressing Applied C Hydrogel ($) -Primary Dressing Covered/Secured Dry Gauze, with Secured with Tape #7 RLE Ant Cluster -Ulcer Cleansing Rinsed/ Irrigated with Saline -Primary Dressing Covered/Secured Dry Gauze, with Secured with Tape Pain Scale: 0-10 Numeric [Pain] -Is Patient Pain Free? Yes WC - Visit Discharge [Visit Discharge Information] -Discharge Condition Stable -Ambulatory Status Ambulatory -Transportation Private Auto Psych/Mental Status: Normal Affect, Appropriate Debridement Note Post-Debridement Measurements/Treatment WC - Nurse 3 - General Ulcer D/C NN Start: 06/05/20 08:26 Freq: Status: Active Protocol: Activity Type Activity Date Activity User E-Sign Co-Sign Detail Recorded Client Recorded Date Recorded By Document 06/05/20 09:27 RAMON [id number] 06/05/20 09:28 RAMON 06/05/20 09:27 Wound Care Nurse 3 #8 RLE Post -Primary Dressing Applied C Hydrogel ($) -Primary Dressing Covered/Secured with Dry Gauze, Secured with Tape #7 RLE Ant Cluster -Ulcer Cleansing Rinsed/ Irrigated with Saline -Primary Dressing Covered/Secured with Dry Gauze, Secured with Tape Pain Scale: 0-10 Numeric Is Patient Pain Free? Yes WC - Visit Discharge Discharge Condition Stable Ambulatory Status Ambulatory Transportation Private Auto Wound debrided: RLE anterior ulcer Laterality: Right Type of Debridement: Excisional debridement Anesthesia Used: 4% Lidocaine Solution, Cetacaine Depth: in the subcutaneous layer Percentage of wound debrided: 100 Instrument Used: 5mm curette Tissue Removed: Slough and devitalized tissue Severity: Fat Layer Exposed Amount of bleeding with debridement: Mild Bleeding Controlled with: Pressure Patient did not tolerate procedure well - Additional Wound Wound debrided: Posterior RLE ulcer Laterality: Right Type of Debridement: Excisional debridement Anesthesia Used: 4% Lidocaine Solution, Cetacaine Depth: in the subcutaneous layer Percentage of wound debrided: 100 Instrument Used: 7mm curette Tissue Removed: Slough and devitalized tissue Severity: Fat Layer Exposed Amount of bleeding with debridement: Mild Bleeding Controlled with: Pressure Patient tolerated procedure: Patient did not tolerate procedure well Assessment/Plan Assessment: Right posterior lower leg ulcer. Right anterior lower leg ulcer. Left anterior lower leg ulcer - healed. Chronic bilateral lower extremity swelling, edema, and lymphedema. Chronic venous insufficiency Plan: Debridement performed today in clinic as above; the patient generally does not tolerate debridement well. Given the duration of the venous ulcers and failure of the ulcers to respond to standard wound care, we applied and were approved for Puraply, NuShield and Apligraf. The patient had completed 6 applications of Puraply to the posterior right lower extremity ulcer. Puraply was then discontinued due to failure of wound to improve in size and appearance, which I suspect was due to the patient's inability to tolerate thorough debridement and refusal to appropriately utilize compression. With an increase in the use of her lymphedema pumps, the patient's wound sizes have improved and she is now able to better tolerate debridement of her posterior RLE ulcer. Puraply was again applied for and approved. Apligraf #2 (advanced skin substitute #3) was applied to the posterior RLE ulcer today. 100% of the product was used. This was covered with Adaptic touch and secured with Steri- Strips. Steri-Strips and edges of Adaptic touch were secured with a VAC dressing, and attempts to avoid detachment of Steri-Strips and Adaptic touch with dressing changes. (The VAC dressing does not cover any portion of the wound). An ABD dressing was placed atop the Adaptic touch to absorb any wound drainage. The ABD dressing may be changed daily or more frequently as needed due to contamination/saturation. The patient was instructed to keep the posterior RLE dressing clean and dry, covering it while showering. She was instructed to leave the Apligraf in place until her visit next week. She has been able to apply Santyl appropriately to her anterior RLE ulcer and has had a good response to this. This will be continued to the anterior RLE ulcer. Calmoseptine will be continued to the anterior periulcer area for skin irritation/excoriation which I feel is most likely due to prolonged exposure to moisture from wound drainage. The patient was instructed to wash her anterior right lower extremity ulcer thoroughly with antibacterial soap and water daily prior to applying new Santyl and calmoseptine. Compression: As previously discussed, lymphedema pumps should be utilized for 1 hour 3 times daily; if this is not well-tolerated, the patient should continue to use the pumps as long and frequently as possible, working toward this goal. Offloading: The patient was advised to avoid pressure on her ulcer sites. She is to keep feet elevated at or above waist level when seated. She is to avoid prolonged standing, sitting, or dangling of legs. When driving, she is to perform walking breaks every hour at minimum. Diet: Patient encouraged to increase protein and vitamin C intake while taking caution to avoid high carbohydrate and/or sugar intake. Also instructed to avoid high sodium intake. Labs/cultures/imaging: Labs from 02/21/2020 showed mild decrease in prealbumin but this may be because of infection, negative acute phase reactant. CRP and ESR are elevated but CBC and chemistry were unremarkable. Vascular studies from 2017 were reviewed. Wound cultures collected on 01/03/2020 were positive for 3+ Aeromonas hydrophilia/caviae, 2+ Citrobacter braakii, 1+ Proteus mirabilis, rare Staphylococus aureus, anaerobic cocci, actinomyces odontolyticus, Bacteroides f ragilis; beta-lactamase positive. She was previously started on Levaquin and Augmentin and completed a 21-day course of both of these antibiotics. Repeat wound culture results from 02/21/2020 reviewed and were negative for anaerobic bacteria; aerobic culture positive for very rare gram positive constanza, no sensitivities reported. Patient completed an additional 14-day course of Levaquin and Augmentin and her cellulitis has resolved. Subsequent development of erythema and warmth of her right medial lymphedema resolved following a course of doxycycline. Erythema and warmth of her right medial thigh lymphedema recurred in late May and cephalexin 500 mg p.o. 3 times daily has been of benefit; her 10-day course will be continued until completed. Follow-up: Return to clinic in 1 week for re-evaluation. Return sooner or report to the emergency room should symptoms worsen, or new symptoms arise. Note: [employer]ice speech recognition mold making plastics sheets supervisor software was used to create portions of this document. Sound-alike and misspelled words, as well as other mold making plastics sheets supervisor errors may be contained in the documentation. [id number]: [id number] Skin sub graft trnk/arm/leg - [id number] + [id number] (2 separate wounds)
[2020-06-12 08:35] VITALS: BP 143/50; PULSE 62; TEMP 36.1; BMI 49.0
--- NOTE | 2020-06-12 13:14 | PCM.WC.PN ---
(1) Ulcer of right lower extremity with fat layer exposed Status: Chronic Code(s): L97.912 - Non-pressure chronic ulcer of unspecified part of right lower leg with fat layer exposed (2) Venous insufficiency Status: Chronic (3) Lymphedema Status: Chronic Code(s): I89.0 - Lymphedema, not elsewhere classified (4) Morbid obesity Status: Chronic Code(s): E66.01 - Morbid (severe) obesity due to excess calories (5) Venous ulcer of right leg Status: Chronic Code(s): I83.019 - Varicose veins of right lower extremity with ulcer of unspecified site; L97.919 - Non-pressure chronic ulcer of unspecified part of right lower leg with unspecified severity (6) Cellulitis of right lower extremity Status: Acute Code(s): L03.115 - Cellulitis of right lower limb Type of Wound Date of Service: 06/12/20 Chief Complaint: Severe swelling, edema, and lymphedema of the lower extremities with ulcerations of the right lower extremity. History of Wound: [facility] for evaluation and treatment of bilateral lower leg ulcers. The patient is [facility] treatment of prior lower extremity ulcers. She has a PMH significant for chronic lymphedema, venous insufficiency, atrial fibrillation (on Eliquis), morbid obesity, hypothyroidism. She reported development of her posterior right lower leg ulcer in April. She initially was using Manuka honey to this ulcer, but then started using Vaseline instead. She reported her anterior right lower extremity ulcer developed in August, and she had been applying Vaseline to this daily. Her anterior left lower extremity ulcer developed approximately 1 week prior to her initial January 2020 appt, and she had been applying Vaseline to this daily as well. She notes that approximately 4 to 6 weeks prior, the ulcer on her posterior right lower leg began increasing in soreness. She has lymphedema pumps at home, but had not been using these due to reported pain with use which is related to her ulcers. She does not use compression at home. She reports frequent dangling of her legs while seated at her computer for work. She does not frequently elevate her feet when seated. The patient denied any fever, chills, nausea, vomiting, or diarrhea. Denied any increasing redness or swelling of the affected area. She did note foul-smelling drainage from her right lower extremity. She had not been on any recent antibiotics. She reported having lab work done approximately 6 weeks prior; these records will be requested for review multiple times but never obtained. She had lower extremity arterial studies completed 05/16/16 which showed relatively normal arterial perfusion to ankle level bilaterally. Triphasic waveforms were noted at ankle level bilaterally. Resting ankle-brachial indices were bilaterally normal. The right digital-brachial index is normal, consistent with normal arterial perfusion at distal, small-vessel level in the right lower extremity. The left digital-brachial index is mildly diminished, suggesting the presence of mild, distal, small-vessel arterial occlusive disease in the left lower extremity. Wound cultures collected on 01/03/2020 were positive for 3+ Aeromonas hydrophilia/caviae, 2+ Citrobacter braakii, 1+ Proteus mirabilis, rare Staphylococus aureus, anaerobic cocci, actinomyces odontolyticus, Bacteroides fragilis; beta-lactamase positive. She completed courses of Levaquin and Augmentin. Weeks later, she developed a mass of localized lymphedema of her right medial thigh that was red and warm; this resolved following a 14-day course of Levaquin and Augmentin. Progress of Wound: Toña returns today for follow up of ulcers of her right lower extremity. The anterior RLE ulcer has a small amount of slough and bioburden. She has been applying Santyl to the anterior RLE ulcer and tolerating this well. Irene-ulcer excoriation and erythema has diminished with the use of calmoseptine ointment. Apligraf #2 (advanced skin substitute #3) was applied to the posterior leg ulcer at her last visit on 06/05/20. She was able to keep the Apligraf dressing in place for the entire week; we secured the wound dressing edges with a wound VAC veil dressing last week. She is tolerating her wound dressings well. Both RLE ulcers have improved. The patient has been generally noncompliant with the use of lymphedema pumps. She reports she has been using her pumps about once a day at this time. She generally refuses compression due to reported intolerance. She denies any purulent/malodorous drainage from her ulcers. She had anterior periulcer erythema and tenderness, which I suspect was due to prolonged exposure to moisture from her wound drainage; Calmoseptine ointment has been of benefit for her skin irritation. She denies fever or chills. The warmth and erythema of her right medial thigh lymphedema had recurred approximately 2 weeks ago. Resolved with the use of cephalexin 500 mg p.o. 3 times daily. Upon discontinuation of cephalexin on Monday, she began to notice recurrence of erythema and warmth of the same area. She has been noncompliant with instructions to elevate her legs more frequently. 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 She has been advised to take walking breaks when driving, but has been noncompliant with these instructions as well. She performs seated work, sitting at a desk without feet elevated. She has been trying to increase her protein intake. - Physical Exam Vital Signs Temp Pulse Resp BP 97.0 F L 62 18 143/50 H 06/12/20 08:35 06/12/20 08:35 06/01/20 00:14 06/12/20 08:35 General: Alert, Cooperative, No apparent distress HEENT: Atraumatic, Normocephalic Oral: Moist Mucosa Neck: Supple, Trachea Midline Lungs: Normal air movement Abdomen: Obese Extremities: No clubbing, No cyanosis, Capillary Refill Less than 3 Seconds, Edema - Bilateral lower extremity lymphedema and edema, Peripheral Pulses Normal Skin: Ulcer/ Wound - RLE ulcers with subcu layer exposed; no probing to bone, tunneling, or undermining. Small amount of slough present. No malodor or purulent drainage. New epithelialization of posterior RLE ulcer edges., Rash Present - Anterior RLE ulcer has periulcer erythema and excoriation which is improved with the use of calmoseptine. Posterior RLE ulcer has mild periulcer excoriation. There is no warmth to touch. Right medial localized mass of lymphedema of thigh is mildly erythematous and warm, nontender. Wound Measurements and Assessment WC - Nurse 1 - General Ulcer Measurement Start: 06/05/20 08:26 Freq: Status: Active Protocol: Activity Type Activity Date Activity User E-Sign Co-Sign Detail Recorded Client Recorded Date Recorded By Document 06/12/20 08:35 RAMON [id number] 06/12/20 08:41 KR 06/12/20 08:35 Wound Center Nurse 1 [Ulcer Assessment] #8 RLE Post -Current Size (cm) - Length 7 -Current Size (cm) - Width 6.8 -Current Size (cm) - Depth 0.1 -Total Square Cm 47.6 -Exudate Amt Large -Exudate Type Yellow/Green -Wound Margin Distinct, Outline Attached -Granulation Amt Medium (34-66%) -Granulation Quality Red -Necrosis Amt Medium (34-66%) -Necrotic Tissue Type Adherent Slough -Texture (Irene-wound Skin Appearance) Assessed, Scarring -Moisture (Irene-wound Skin Appearance No Abnormality, ) Assessed -Color (Irene-wound Skin Appearance) No Abnormality, Assessed -Temperature (Irene-wound Skin No Abnormality Appearance) (Pt Warm) -Tenderness on Palpation (Irene-wound No Skin Appearance) -Ulcer Cleansing Rinsed/ Irrigated with Saline -Foul Odor after Cleansing No -Anesthetic Used 4% Lidocaine Solution #7 RLE Ant Cluster -Current Size (cm) - Length 2.0 -Current Size (cm) - Width 1.4 -Current Size (cm) - Depth 0.1 -Total Square Cm 2.80 -Exudate Amt Small -Exudate Type Serosanguineous -Wound Margin Distinct, Outline Attached -Granulation Amt Medium (34-66%) -Granulation Quality Red -Necrosis Amt Medium (34-66%) -Necrotic Tissue Type Adherent Slough -Texture (Irene-wound Skin Appearance) Assessed, Scarring -Moisture (Irene-wound Skin Appearance No Abnormality, ) Assessed -Color (Irene-wound Skin Appearance) No Abnormality, Assessed -Temperature (Irene-wound Skin No Abnormality Appearance) (Pt Warm) -Tenderness on Palpation (Irene-wound No Skin Appearance) -Ulcer Cleansing Rinsed/ Irrigated with Saline -Foul Odor after Cleansing No -Anesthetic Used 4% Lidocaine Solution WC - Nurse 3 - General Ulcer D/C NN Start: 06/05/20 08:26 Freq: Status: Active Protocol: Activity Type Activity Date Activity User E-Sign Co-Sign Detail Recorded Client Recorded Date Recorded By Document 06/12/20 09:45 RAMON [id number] 06/12/20 09:47 RAMON 06/12/20 09:45 Wound Care Nurse 3 [Wound Dressing] #8 RLE Post -Primary Dressing Covered/Secured Dry Gauze,Dry with Gauze & Roll Gauze,Secured with Tape #7 RLE Ant Cluster -Primary Dressing Covered/Secured Dry Gauze,Dry with Gauze & Roll Gauze,Secured with Tape WC - Visit Discharge [Visit Discharge Information] -Discharge Condition Stable -Ambulatory Status Ambulatory -Transportation Private Auto Psych/Mental Status: Normal Affect, Appropriate Debridement Note Post-Debridement Measurements/Treatment WC - Nurse 2 - General Ulcer CM Notes Start: 06/05/20 08:26 Freq: Status: Active Protocol: Activity Type Activity Date Activity User E-Sign Co-Sign Detail Recorded Client Recorded Date Recorded By Document 06/05/20 13:05 PEDRO LUIS [id number] 06/05/20 13:12 PL 06/05/20 13:05 Wound Center Nurse 2 #8 RLE Post -Time 08:42 -Correct Patient Yes -Correct Side, Site, Position Yes -Correct Procedure Yes -Procedure Performed Yes -Type of Procedure Debridement -Clinical Debridement Subcutaneous -Tissue Removed Subcutaneous -Post Debridement (cm) - Length 6.6 -Post Debridement (cm) - Width 5.3 -Post Debridement (cm) - Depth 0.1 -Total Square (Post) (cm) 34.98 -Area of Debridement (cm) - Length 6.6 -Area of Debridement (cm) - Width 5.3 -Total Square (Area) (cm) 34.98 -Tunneling No -Undermining/Tunneling No -Circular Undermining No -Wound/Ulcer Outcome Not Healed -Ulcer Cleansing Rinsed/ Irrigated with Saline -Foul Odor after Cleansing No -Bioengineered Tissue Yes -Type of Bioengineered Tissue Apligraf -Expiration Date 06/13/20 -Product Lot Number [id number] -Percent Used 100 -Lot number of Saline Used [id number] -Bleeding Controlled with Pressure -Treatment Response Procedure Tolerated Well -Debridement - Subq, 1st 20sq cm No -Apply Skin Sub - 1st 25 sq cm - Legs 1 -Apligraf (per sq cm) 44 #7 RLE Ant Cluster -Time 08:42 -Correct Patient Yes -Correct Side, Site, Position Yes -Correct Procedure Yes -Procedure Performed Yes -Type of Procedure Debridement -Clinical Debridement Subcutaneous -Tissue Removed Subcutaneous -Post Debridement (cm) - Length 2.0 -Post Debridement (cm) - Width 1.3 -Post Debridement (cm) - Depth 0.1 -Total Square (Post) (cm) 2.60 -Area of Debridement (cm) - Length 2.0 -Area of Debridement (cm) - Width 1.3 -Total Square (Area) (cm) 2.60 -Tunneling No -Undermining/Tunneling No -Circular Undermining No -Wound/Ulcer Outcome Not Healed -Ulcer Cleansing Rinsed/ Irrigated with Saline -Foul Odor after Cleansing No -Bioengineered Tissue No -Debridement - Subq, 1st 20sq cm Yes Pain Scale: 0-10 Numeric Is Patient Pain Free? Yes - Nurse 3 - General Ulcer D/C NN Start: 06/05/20 08:26 Freq: Status: Active Protocol: Activity Type Activity Date Activity User E-Sign Co-Sign Detail Recorded Client Recorded Date Recorded By Document 06/05/20 09:27 KR [id number] 06/05/20 09:28 KR Document 06/12/20 09:45 KR [id number] 06/12/20 09:47 KR 06/05/20 06/12/20 09:27 09:45 Wound Care Nurse 3 #8 RLE Post -Primary Dressing Applied C Hydrogel ($) -Primary Dressing Covered/Secured with Dry Gauze, Dry Gauze,Dry Secured with Gauze & Roll Tape Gauze,Secured with Tape #7 RLE Ant Cluster -Ulcer Cleansing Rinsed/ Irrigated with Saline -Primary Dressing Covered/Secured with Dry Gauze, Dry Gauze,Dry Secured with Gauze & Roll Tape Gauze,Secured with Tape Pain Scale: 0-10 Numeric Is Patient Pain Free? Yes - Visit Discharge Discharge Condition Stable Stable Ambulatory Status Ambulatory Ambulatory Transportation Private Auto Private Auto Wound debrided: RLE anterior ulcer Laterality: Right Type of Debridement: Excisional debridement Anesthesia Used: 4% Lidocaine Solution, Cetacaine Depth: in the subcutaneous layer Percentage of wound debrided: 100 Instrument Used: 5mm curette Tissue Removed: Slough and devitalized tissue Severity: Fat Layer Exposed Amount of bleeding with debridement: Mild Bleeding Controlled with: Pressure Patient did not tolerate procedure well - Additional Wound Wound debrided: Posterior RLE ulcer Laterality: Right Type of Debridement: Excisional debridement Anesthesia Used: 4% Lidocaine Solution, Cetacaine Depth: in the subcutaneous layer Percentage of wound debrided: 100 Instrument Used: 7mm curette Tissue Removed: Slough and devitalized tissue Severity: Fat Layer Exposed Amount of bleeding with debridement: Mild Bleeding Controlled with: Pressure Patient tolerated procedure: Patient did not tolerate procedure well Assessment/Plan Active Problems (Last Updated 01/11/18 @ 08:41 by Adeline Andres) Venous ulcer of right leg (Chronic) Cellulitis of right lower extremity (Acute) Venous insufficiency (Chronic) Morbid obesity (Chronic) Ulcer of right lower extremity with fat layer exposed (Chronic) Lymphedema (Chronic) Assessment: Right posterior lower leg ulcer. Right anterior lower leg ulcer. Left anterior lower leg ulcer - healed. Chronic bilateral lower extremity swelling, edema, and lymphedema. Chronic venous insufficiency Plan: Debridement performed today in clinic as above; the patient generally does not tolerate debridement well. Given the duration of the venous ulcers and failure of the ulcers to respond to standard wound care, we applied and were approved for Puraply, NuShield and Apligraf. The patient had completed 6 applications of Puraply to the posterior right lower extremity ulcer. Puraply was then discontinued due to failure of wound to improve in size and appearance, which I suspect was due to the patient's inability to tolerate thorough debridement and refusal to appropriately utilize compression. With an increase in the use of her lymphedema pumps, the patient's wound sizes have improved and she is now able to better tolerate debridement of her posterior RLE ulcer. Puraply was again applied for and approved. Apligraf #3 (advanced skin substitute #4) was applied to the posterior and anterior RLE ulcers today. 100% of the product was used. This was covered with Adaptic touch and secured with Steri-Strips. Steri-Strips and edges of Adaptic touch were secured with a VAC- veil in attempt to avoid detachment of Steri-Strips and Adaptic touch with dressing changes. (The VAC dressing does not cover any portion of the wound). ABD dressings were placed atop the Adaptic touch to absorb any wound drainage. The ABD dressings may be changed daily or more frequently as needed due to contamination/saturation. The patient was instructed to keep the dressings clean and dry, covering them while showering. She was instructed to leave the Apligraf in place until her visit next week. Calmoseptine will be continued to the anterior periulcer area for skin irritation/excoriation, though long as it does not interfere with keeping her dressings clean and dry. Compression: As previously discussed, lymphedema pumps should be utilized for 1 hour 3 times daily; if this is not well-tolerated, the patient should continue to use the pumps as long and frequently as possible, working toward this goal. Offloading: The patient was advised to avoid pressure on her ulcer sites. She is to keep feet elevated at or above waist level when seated. She is to avoid prolonged standing, sitting, or dangling of legs. When driving, she is to perform walking breaks every hour at minimum. Diet: Patient encouraged to increase protein and vitamin C intake while taking caution to avoid high carbohydrate and/or sugar intake. Also instructed to avoid high sodium intake. Labs/cultures/imaging: Labs from 02/21/2020 showed mild decrease in prealbumin but this may be because of infection, negative acute phase reactant. CRP and ESR are elevated but CBC and chemistry were unremarkable. Vascular studies from 2017 were reviewed. Wound cultures collected on 01/03/2020 were positive for 3+ Aeromonas hydrophilia/caviae, 2+ Citrobacter braakii, 1+ Proteus mirabilis, rare Staphylococus aureus, anaerobic cocci, actinomyces odontolyticus, Bacteroides fragilis; beta-lactamase positive. She was previously started on Levaquin and Augmentin and completed a 21-day course of both of these antibiotics. Repeat wound culture results from 02/21/2020 reviewed and were negative for anaerobic bacteria; aerobic culture positive for very rare gram positive constanza, no sensitivities reported. Patient completed an additional 14-day course of Levaquin and Augmentin and her cellulitis has resolved. Subsequent development of erythema and warmth of her right medial thigh lymphedema resolved following a course of doxycycline. Erythema and warmth of her right medial thigh lymphedema recurred in late May and solved with cephalexin 500 mg p.o. 3 times daily for 10 days. A few days after discontinuation of cephalexin, the erythema and warmth began to recur. Another 10-day course of cephalexin 500 mg p.o. 3 times daily will be prescribed today. We will continue to monitor. Follow-up: Return to clinic in 1 week for re-evaluation. Return sooner or report to the emergency room should symptoms worsen, or new symptoms arise. Note: [employer] speech recognition buffing line set up worker software was used to create portions of this document. Sound-alike and misspelled words, as well as other buffing line set up worker errors may be contained in the documentation. [id number]: [id number] Skin sub graft trnk/arm/leg
[2020-06-26 08:41] VITALS: BP 143/94; PULSE 75; TEMP 36.7; BMI 49.0
--- NOTE | 2020-06-26 12:07 | PCM.WC.PN ---
(1) Ulcer of right lower extremity with fat layer exposed Status: Chronic Code(s): L97.912 - Non-pressure chronic ulcer of unspecified part of right lower leg with fat layer exposed (2) Venous insufficiency Status: Chronic (3) Lymphedema Status: Chronic Code(s): I89.0 - Lymphedema, not elsewhere classified (4) Morbid obesity Status: Chronic Code(s): E66.01 - Morbid (severe) obesity due to excess calories (5) Venous ulcer of right leg Status: Chronic Code(s): I83.019 - Varicose veins of right lower extremity with ulcer of unspecified site; L97.919 - Non-pressure chronic ulcer of unspecified part of right lower leg with unspecified severity (6) Cellulitis of right lower extremity Status: Acute Code(s): L03.115 - Cellulitis of right lower limb Type of Wound Date of Service: 06/26/20 Chief Complaint: Severe swelling, edema, and lymphedema of the lower extremities with ulcerations of the right lower extremity. History of Wound: [facility] for evaluation and treatment of bilateral lower leg ulcers. The patient is known [facility] from treatment of prior lower extremity ulcers. She has a PMH significant for chronic lymphedema, venous insufficiency, atrial fibrillation (on Eliquis), morbid obesity, hypothyroidism. She reported development of her posterior right lower leg ulcer in April. She initially was using Manuka honey to this ulcer, but then started using Vaseline instead. She reported her anterior right lower extremity ulcer developed in August, and she had been applying Vaseline to this daily. Her anterior left lower extremity ulcer developed approximately 1 week prior to her initial January 2020 appt, and she had been applying Vaseline to this daily as well. She notes that approximately 4 to 6 weeks prior, the ulcer on her posterior right lower leg began increasing in soreness. She has lymphedema pumps at home, but had not been using these due to reported pain with use which is related to her ulcers. She does not use compression at home. She reports frequent dangling of her legs while seated at her computer for work. She does not frequently elevate her feet when seated. The patient denied any fever, chills, nausea, vomiting, or diarrhea. Denied any increasing redness or swelling of the affected area. She did note foul-smelling drainage from her right lower extremity. She had not been on any recent antibiotics. She reported having lab work done approximately 6 weeks prior; these records will be requested for review multiple times but never obtained. She had lower extremity arterial studies completed 05/16/16 which showed relatively normal arterial perfusion to ankle level bilaterally. Triphasic waveforms were noted at ankle level bilaterally. Resting ankle-brachial indices were bilaterally normal. The right digital-brachial index is normal, consistent with normal arterial perfusion at distal, small-vessel level in the right lower extremity. The left digital-brachial index is mildly diminished, suggesting the presence of mild, distal, small-vessel arterial occlusive disease in the left lower extremity. Wound cultures collected on 01/03/2020 were positive for 3+ Aeromonas hydrophilia/caviae, 2+ Citrobacter braakii, 1+ Proteus mirabilis, rare Staphylococus aureus, anaerobic cocci, actinomyces odontolyticus, Bacteroides fragilis; beta-lactamase positive. She completed courses of Levaquin and Augmentin. Weeks later, she developed a mass of localized lymphedema of her right medial thigh that was red and warm; this resolved following a 14-day course of Levaquin and Augmentin. Progress of Wound: Toña returns today for follow up of ulcers of her right lower extremity. She missed last week's appointment. The anterior RLE ulcer has a small amount of slough and bioburden. Apligraf was applied to the anterior RLE ulcer. She reports this stayed in place for approximately 3 days before falling off. When Apligraf fell off, she resumed use of Santyl to the anterior RLE ulcer. Irene-ulcer excoriation and erythema has diminished with the use of calmoseptine ointment. Apligraf #3 (advanced skin substitute #4) was applied to the posterior leg ulcer at her last visit on 06/12/20. She states that Apligraf stayed on her posterior RLE ulcer for approximately 5 days before falling off. After falling off, she resumed the use of Aquacel Ag to her posterior RLE ulcer. Her wounds have improved in size and appearance. The patient has been generally noncompliant with the use of lymphedema pumps. She currently states she is having difficulty getting her lymphedema pumps over her right medial thigh swelling. She states this was controlled while on Keflex, but after discontinuing her antibiotics it became erythematous again. She reports 1 day of a fever of 102F (after completing her antibiotics), which resolved spontaneously. She generally refuses compression due to reported intolerance. She denies any purulent/malodorous drainage from her ulcers. She had anterior periulcer erythema and tenderness, which I suspect was due to prolonged exposure to moisture from her wound drainage; Calmoseptine ointment has been of benefit for her skin irritation. She has been noncompliant with instructions to elevate her legs more frequently. 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 She has been advised to take walking breaks when driving, but has been noncompliant with these instructions as well. She performs seated work, sitting at a desk without feet elevated. She has been trying to increase her protein intake. - Physical Exam Vital Signs Temp Pulse Resp BP 98.1 F 75 18 143/94 H 06/26/20 08:41 06/26/20 08:41 06/01/20 00:14 06/26/20 08:41 General: Alert, Cooperative, No apparent distress HEENT: Atraumatic, Normocephalic Oral: Moist Mucosa Neck: Supple Lungs: Normal air movement Abdomen: Obese Extremities: No clubbing, No cyanosis, Capillary Refill Less than 3 Seconds, Edema - Bilateral lower extremity lymphedema and edema, Peripheral Pulses Normal Skin: Ulcer/ Wound - Small amount of slough present. No malodor purulent drainage. New epithelialization of posterior RLE ulcer edges., - - Anterior RLE ulcer has periulcer erythema and excoriation which is improved with the use of calmoseptine. Posterior RLE ulcer has mild periulcer excoriation. There is no warmth to touch. Right medial localized mass of lymphedema of the right thigh is mildly erythematous and warm. Wound Measurements and Assessment WC - Nurse 1 - General Ulcer Measurement Start: 06/05/20 08:26 Freq: Status: Active Protocol: Activity Type Activity Date Activity User E-Sign Co-Sign Detail Recorded Client Recorded Date Recorded By Document 06/26/20 08:41 RAMON [id number] 06/26/20 08:48 KR 06/26/20 08:41 Wound Center Nurse 1 [Ulcer Assessment] #8 RLE Post -Current Size (cm) - Length 4.7 -Current Size (cm) - Width 3.6 -Current Size (cm) - Depth 0.1 -Total Square Cm 16.92 -Exudate Amt Medium -Exudate Type Serosanguineous -Wound Margin Distinct, Outline Attached -Granulation Amt Medium (34-66%) -Granulation Quality Red -Necrosis Amt Medium (34-66%) -Necrotic Tissue Type Adherent Slough -Texture (Irene-wound Skin Appearance) Assessed, Scarring -Moisture (Irene-wound Skin Appearance No Abnormality, ) Assessed -Color (Irene-wound Skin Appearance) No Abnormality, Assessed -Temperature (Irene-wound Skin No Abnormality Appearance) (Pt Warm) -Tenderness on Palpation (Irene-wound No Skin Appearance) -Ulcer Cleansing Rinsed/ Irrigated with Saline -Foul Odor after Cleansing No -Anesthetic Used 4% Lidocaine Solution #7 RLE Ant Cluster -Current Size (cm) - Length 1.8 -Current Size (cm) - Width 1 -Current Size (cm) - Depth 0.1 -Total Square Cm 1.8 -Exudate Amt Medium -Exudate Type Serosanguineous -Wound Margin Distinct, Outline Attached -Granulation Amt Medium (34-66%) -Granulation Quality Red -Necrosis Amt Medium (34-66%) -Necrotic Tissue Type Adherent Slough -Texture (Irene-wound Skin Appearance) Assessed, Scarring -Moisture (Irene-wound Skin Appearance No Abnormality, ) Assessed -Color (Irene-wound Skin Appearance) No Abnormality, Assessed -Temperature (Irene-wound Skin No Abnormality Appearance) (Pt Warm) -Tenderness on Palpation (Irene-wound No Skin Appearance) -Ulcer Cleansing Rinsed/ Irrigated with Saline -Foul Odor after Cleansing No -Anesthetic Used 4% Lidocaine Solution WC - Nurse 2 - General Ulcer CM Notes Start: 06/05/20 08:26 Freq: Status: Active Protocol: Activity Type Activity Date Activity User E-Sign Co-Sign Detail Recorded Client Recorded Date Recorded By Document 06/26/20 10:44 PL [id number] 06/26/20 10:53 PL 06/26/20 10:44 Wound Center Nurse 2 [Procedure/Treatment] #8 RLE Post -Time 09:28 -Correct Patient Yes -Correct Side, Site, Position Yes -Correct Procedure Yes -Procedure Performed Yes -Type of Procedure Debridement -Clinical Debridement Subcutaneous -Tissue Removed Subcutaneous -Post Debridement (cm) - Length 5.2 -Post Debridement (cm) - Width 3.3 -Post Debridement (cm) - Depth 0.1 -Total Square (Post) (cm) 17.16 -Area of Debridement (cm) - Length 5.2 -Area of Debridement (cm) - Width 3.3 -Total Square (Area) (cm) 17.16 -Tunneling No -Undermining/Tunneling No -Circular Undermining No -Wound/Ulcer Outcome Not Healed -Ulcer Cleansing Rinsed/ Irrigated with Saline -Foul Odor after Cleansing No -Bioengineered Tissue Yes -Type of Bioengineered Tissue Apligraf -Expiration Date 06/30/20 -Product Lot Number [id number] -Percent Used 100 -Bleeding Controlled with Pressure -Treatment Response Procedure Tolerated Well -Debridement - Subq, 1st 20sq cm No -Apply Skin Sub - 1st 25 sq cm - Legs 1 -Apligraf (per sq cm) 44 Query Text:1 sheet = 44 sq cm #7 RLE Ant Cluster -Time 09:28 -Correct Patient Yes -Correct Side, Site, Position Yes -Correct Procedure Yes -Procedure Performed Yes -Type of Procedure Debridement -Clinical Debridement Subcutaneous -Tissue Removed Subcutaneous -Post Debridement (cm) - Length 1.9 -Post Debridement (cm) - Width 1.2 -Post Debridement (cm) - Depth 0.1 -Total Square (Post) (cm) 2.28 -Area of Debridement (cm) - Length 1.9 -Area of Debridement (cm) - Width 1.2 -Total Square (Area) (cm) 2.28 -Tunneling No -Undermining/Tunneling No -Circular Undermining No -Wound/Ulcer Outcome Not Healed -Ulcer Cleansing Rinsed/ Irrigated with Saline -Foul Odor after Cleansing No -Bioengineered Tissue No -Bleeding Controlled with Pressure -Treatment Response Procedure Tolerated Well -Debridement - Subq, 1st 20sq cm Yes [See Physician Procedure note for Specifics] Pain Scale: 0-10 Numeric [Pain] -Is Patient Pain Free? Yes WC - Nurse 3 - General Ulcer D/C NN Start: 06/05/20 08:26 Freq: Status: Active Protocol: Activity Type Activity Date Activity User E-Sign Co-Sign Detail Recorded Client Recorded Date Recorded By Document 06/26/20 10:02 RAMON [id number] 06/26/20 10:02 KR 06/26/20 10:02 Wound Care Nurse 3 [Wound Dressing] #8 RLE Post -Primary Dressing Covered/Secured Dry Gauze, with Secured with Tape #7 RLE Ant Cluster -Primary Dressing Covered/Secured Dry Gauze, with Secured with Tape Pain Scale: 0-10 Numeric [Pain] -Is Patient Pain Free? Yes WC - Visit Discharge [Visit Discharge Information] -Discharge Condition Stable -Ambulatory Status Ambulatory -Transportation Private Auto Psych/Mental Status: Normal Affect, Appropriate Debridement Note Post-Debridement Measurements/Treatment WC - Nurse 2 - General Ulcer CM Notes Start: 06/05/20 08:26 Freq: Status: Active Protocol: Activity Type Activity Date Activity User E-Sign Co-Sign Detail Recorded Client Recorded Date Recorded By Document 06/05/20 13:05 PL [id number] 06/05/20 13:12 PL Document 06/12/20 14:21 PL [id number] 06/12/20 14:25 PL Document 06/26/20 10:44 PL [id number] 06/26/20 10:53 PL 06/05/20 06/12/20 06/26/20 13:05 14:21 10:44 Wound Center Nurse 2 #8 RLE Post -Time 08:42 09:10 09:28 -Correct Patient Yes Yes Yes -Correct Side, Site, Position Yes Yes Yes -Correct Procedure Yes Yes Yes -Procedure Performed Yes Yes Yes -Type of Procedure Debridement Debridement Debridement -Clinical Debridement Subcutaneous Subcutaneous Subcutaneous -Tissue Removed Subcutaneous Subcutaneous Subcutaneous -Post Debridement (cm) - Length 6.6 5.5 5.2 -Post Debridement (cm) - Width 5.3 5.3 3.3 -Post Debridement (cm) - Depth 0.1 0.1 0.1 -Total Square (Post) (cm) 34.98 29.15 17.16 -Area of Debridement (cm) - Length 6.6 5.5 5.2 -Area of Debridement (cm) - Width 5.3 5.3 3.3 -Total Square (Area) (cm) 34.98 29.15 17.16 -Tunneling No No No -Undermining/Tunneling No No No -Circular Undermining No No No -Wound/Ulcer Outcome Not Healed Not Healed Not Healed -Ulcer Cleansing Rinsed/ Rinsed/ Rinsed/ Irrigated with Irrigated with Irrigated with Saline Saline Saline -Foul Odor after Cleansing No No No -Bioengineered Tissue Yes Yes Yes -Type of Bioengineered Tissue Apligraf Apligraf Apligraf -Expiration Date 06/13/20 06/13/20 06/30/20 -Product Lot Number [id number] -Percent Used 100 100 100 -Lot number of Saline Used [id number] -Bleeding Controlled with Pressure Pressure Pressure -Treatment Response Procedure Procedure Procedure Tolerated Well Tolerated Well Tolerated Well -Debridement - Subq, 1st 20sq cm No No No -Debridement, SubQ, ea addt'l 20sq cm 1 or part thereof -Apply Skin Sub - 1st 25 sq cm - Legs 1 1 1 -Apligraf (per sq cm) 44 44 44 Query Text:1 sheet = 44 sq cm #7 RLE Ant Cluster -Time 08:42 09:10 09:28 -Correct Patient Yes Yes Yes -Correct Side, Site, Position Yes Yes Yes -Correct Procedure Yes Yes Yes -Procedure Performed Yes Yes Yes -Type of Procedure Debridement Debridement Debridement -Clinical Debridement Subcutaneous Subcutaneous Subcutaneous -Tissue Removed Subcutaneous Subcutaneous Subcutaneous -Post Debridement (cm) - Length 2.0 1.9 1.9 -Post Debridement (cm) - Width 1.3 1.3 1.2 -Post Debridement (cm) - Depth 0.1 0.1 0.1 -Total Square (Post) (cm) 2.60 2.47 2.28 -Area of Debridement (cm) - Length 2.0 1.9 1.9 -Area of Debridement (cm) - Width 1.3 1.3 1.2 -Total Square (Area) (cm) 2.60 2.47 2.28 -Tunneling No No No -Undermining/Tunneling No No No -Circular Undermining No No No -Wound/Ulcer Outcome Not Healed Not Healed Not Healed -Ulcer Cleansing Rinsed/ Rinsed/ Rinsed/ Irrigated with Irrigated with Irrigated with Saline Saline Saline -Foul Odor after Cleansing No No No -Bioengineered Tissue No No No -Bleeding Controlled with Pressure -Treatment Response Procedure Tolerated Well -Debridement - Subq, 1st 20sq cm Yes Yes Yes Pain Scale: 0-10 Numeric Is Patient Pain Free? Yes Yes Yes WC - Nurse 3 - General Ulcer D/C NN Start: 06/05/20 08:26 Freq: Status: Active Protocol: Activity Type Activity Date Activity User E-Sign Co-Sign Detail Recorded Client Recorded Date Recorded By Document 06/05/20 09:27 KR [id number] 06/05/20 09:28 KR Document 06/12/20 09:45 KR [id number] 06/12/20 09:47 KR Document 06/26/20 10:02 KR [id number] 06/26/20 10:02 KR 06/05/20 06/12/20 06/26/20 09:27 09:45 10:02 Wound Care Nurse 3 #8 RLE Post -Primary Dressing Applied C Hydrogel ($) -Primary Dressing Covered/Secured with Dry Gauze, Dry Gauze,Dry Dry Gauze, Secured with Gauze & Roll Secured with Tape Gauze,Secured Tape with Tape #7 RLE Ant Cluster -Ulcer Cleansing Rinsed/ Irrigated with Saline -Primary Dressing Covered/Secured with Dry Gauze, Dry Gauze,Dry Dry Gauze, Secured with Gauze & Roll Secured with Tape Gauze,Secured Tape with Tape Pain Scale: 0-10 Numeric Is Patient Pain Free? Yes Yes WC - Visit Discharge Discharge Condition Stable Stable Stable Ambulatory Status Ambulatory Ambulatory Ambulatory Transportation Private Auto Private Auto Private Auto Wound debrided: RLE anterior ulcer Laterality: Right Type of Debridement: Excisional debridement Anesthesia Used: 4% Lidocaine Solution Depth: in the subcutaneous layer Percentage of wound debrided: 100 Instrument Used: 5mm curette Tissue Removed: Slough and devitalized tissue Severity: Fat Layer Exposed Amount of bleeding with debridement: Mild Bleeding Controlled with: Pressure Patient tolerated procedure well - Additional Wound Wound debrided: RLE posterior ulcer Laterality: Right Type of Debridement: Excisional debridement Anesthesia Used: 4% Lidocaine Solution, Cetacaine Depth: in the subcutaneous layer Percentage of wound debrided: 100 Instrument Used: 7mm curette Tissue Removed: Slough and devitalized tissue Severity: Fat Layer Exposed Amount of bleeding with debridement: Mild Bleeding Controlled with: Pressure Patient tolerated procedure: Patient did not tolerate procedure well Assessment/Plan Active Problems (Last Updated 01/11/18 @ 08:41 by Adeline Andres) Venous ulcer of right leg (Chronic) Cellulitis of right lower extremity (Acute) Venous insufficiency (Chronic) Morbid obesity (Chronic) Ulcer of right lower extremity with fat layer exposed (Chronic) Lymphedema (Chronic) Assessment: Right posterior lower leg ulcer. Right anterior lower leg ulcer. Left anterior lower leg ulcer - healed. Chronic bilateral lower extremity swelling, edema, and lymphedema. Chronic venous insufficiency Plan: Debridement performed today in clinic as above. Given the duration of the venous ulcers and failure of the ulcers to respond to standard wound care, we applied and were approved for Puraply, NuShield and Apligraf. The patient had completed 6 applications of Puraply to the posterior right lower extremity ulcer. Puraply was then discontinued due to failure of wound to improve in size and appearance, which I suspect was due to the patient's inability to tolerate thorough debridement and refusal to appropriately utilize compression. With an increase in the use of her lymphedema pumps, the patient's wound sizes have improved and she is now able to better tolerate debridement of her posterior RLE ulcer. Puraply was again applied for and approved. Apligraf #4 (advanced skin substitute #5) was applied to the posterior and anterior RLE ulcers today. 100% of the product was used. This was covered with Adaptic touch and secured with Steri-Strips. Steri-Strips and edges of Adaptic touch were secured with a VAC- veil in attempt to avoid detachment of Steri-Strips and Adaptic touch with dressing changes. (The VAC dressing does not cover any portion of the wound). ABD dressings were placed atop the Adaptic touch to absorb any wound drainage. The ABD dressings may be changed daily or more frequently as needed due to contamination/saturation. The patient was instructed to keep the dressings clean and dry, covering them while showering. She was instructed to leave the Apligraf in place until her visit next week. Calmoseptine will be continued to the anterior periulcer area for skin irritation/excoriation, though long as it does not interfere with keeping her dressings clean and dry. Compression: As previously discussed, lymphedema pumps should be utilized for 1 hour 3 times daily; if this is not well-tolerated, the patient should continue to use the pumps as long and frequently as possible, working toward this goal. Offloading: The patient was advised to avoid pressure on her ulcer sites. She is to keep feet elevated at or above waist level when seated. She is to avoid prolonged standing, sitting, or dangling of legs. When driving, she is to perform walking breaks every hour at minimum. Diet: Patient encouraged to increase protein and vitamin C intake while taking caution to avoid high carbohydrate and/or sugar intake. Also instructed to avoid high sodium intake. Labs/cultures/imaging: Labs from 02/21/2020 showed mild decrease in prealbumin but this may be because of infection, negative acute phase reactant. CRP and ESR are elevated but CBC and chemistry were unremarkable. Vascular studies from 2017 were reviewed. Wound cultures collected on 01/03/2020 were positive for 3+ Aeromonas hydrophilia/caviae, 2+ Citrobacter braakii, 1+ Proteus mirabilis, rare Staphylococus aureus, anaerobic cocci, actinomyces odontolyticus, Bacteroides fragilis; beta-lactamase positive. She was previously started on Levaquin and Augmentin and completed a 21-day course of both of these antibiotics. Repeat wound culture results from 02/21/2020 reviewed and were negative for anaerobic bacteria; aerobic culture positive for very rare gram positive constanza, no sensitivities reported. Patient completed an additional 14-day course of Levaquin and Augmentin and her cellulitis has resolved. Subsequent development of erythema and warmth of her right medial thigh lymphedema resolved following a course of doxycycline. Erythema and warmth of her right medial thigh lymphedema recurred in late May and solved with cephalexin 500 mg p.o. 3 times daily for 10 days. A few days after discontinuation of cephalexin, the erythema and warmth began to recur and another 10-day course of cephalexin 500 mg p.o. 3 times daily was given. Few days after discontinuation of antibiotic, she reports return of her right medial thigh erythema and tenderness, as well as having 1 day of a fever of 102F which resolved spontaneously. I will have her start a weeklong course of doxycycline and will reevaluate at next week's appointment. Follow-up: Return to clinic in 1 week for re-evaluation. Return sooner or report to the emergency room should symptoms worsen, or new symptoms arise. Note: [employer] speech recognition motorcycle sales associate software was used to create portions of this document. Sound-alike and misspelled words, as well as other motorcycle sales associate errors may be contained in the documentation. [id number]: [id number] Skin sub graft trnk/arm/leg
== END 2020-07-01 23:59 ==
LOC: WC 08:15
PROVIDERS: PCP Family Medicine; Referring Provider Family Medicine; Visit Provider Nurse Practitioner Family
DX: I83.018 Varicose veins of right lower extremity with ulcer other part of lower leg (principal); L97.812 Non-pressure chronic ulcer of other part of right lower leg with fat layer exposed; L03.115 Cellulitis of right lower limb; I87.2 Venous insufficiency (chronic) (peripheral); I89.0 Lymphedema, not elsewhere classified; I48.91 Unspecified atrial fibrillation; E03.9 Hypothyroidism, unspecified; E66.01 Morbid (severe) obesity due to excess calories; Z79.01 Long term (current) use of anticoagulants; Z79.899 Other long term (current) drug therapy; Z91.19 Patient's noncompliance with other medical treatment and regimen
CPT/HCPCS: 11042; 11045; 15271; Q4101

== ENCOUNTER 2020-07-31 08:30 | Outpatient (RCR) | payer MEDICAID, SELFPAY ==
[2020-07-02 00:25] VITALS: BP 143/94; PULSE 75; RESP 18; TEMP 36.7
[2020-07-03 08:45] VITALS: BP 159/67; PULSE 16; RESP 16; TEMP 36; BMI 49.0
--- NOTE | 2020-07-03 13:46 | PN.PCM_ITS ---
(1) Ulcer of right lower extremity with fat layer exposed Status: Chronic Code(s): L97.912 - Non-pressure chronic ulcer of unspecified part of right lower leg with fat layer exposed (2) Venous ulcer of right leg Status: Chronic Code(s): I83.019 - Varicose veins of right lower extremity with ulcer of unspecified site; L97.919 - Non-pressure chronic ulcer of unspecified part of right lower leg with unspecified severity (3) Venous insufficiency Status: Chronic (4) Cellulitis of right lower extremity Status: Acute Code(s): L03.115 - Cellulitis of right lower limb (5) Lymphedema Status: Chronic Code(s): I89.0 - Lymphedema, not elsewhere classified (6) Morbid obesity Status: Chronic Code(s): E66.01 - Morbid (severe) obesity due to excess calories Type of Wound Date of Service: 07/03/20 Chief Complaint: Severe swelling, edema, and lymphedema of the lower extremities with ulcerations of the right lower extremity. History of Wound: [facility] for evaluation and treatment of bilateral lower leg ulcers. The patient is known [facility] treatment of prior lower extremity ulcers. She has a PMH significant for chronic lymphedema, venous insufficiency, atrial fibrillation (on Eliquis), morbid obesity, hypothyroidism. She reported development of her posterior right lower leg ulcer in April. She initially was using Manuka honey to this ulcer, but then started using Vaseline instead. She reported her anterior right lower extremity ulcer developed in August, and she had been applying Vaseline to this daily. Her anterior left lower extremity ulcer developed approximately 1 week prior to her initial January 2020 appt, and she had been applying Vaseline to this daily as well. She notes that approximately 4 to 6 weeks prior, the ulcer on her posterior right lower leg began increasing in soreness. She has lymphedema pumps at home, but had not been using these due to reported pain with use which is related to her ulcers. She does not use compression at home. She reports frequent dangling of her legs while seated at her computer for work. She does not frequently elevate her feet when seated. The patient denied any fever, chills, nausea, vomiting, or diarrhea. Denied any increasing redness or swelling of the affected area. She did note foul-smelling drainage from her right lower extremity. She had not been on any recent antibiotics. She reported having lab work done approximately 6 weeks prior; these records will be requested for review multiple times but never obtained. She had lower extremity arterial studies completed 05/16/16 which showed relatively normal arterial perfusion to ankle level bilaterally. Triphasic waveforms were noted at ankle level bilaterally. Resting ankle-brachial indices were bilaterally normal. The right digital-brachial index is normal, consistent with normal arterial perfusion at distal, small-vessel level in the right lower extremity. The left digital- brachial index is mildly diminished, suggesting the presence of mild, distal, small-vessel arterial occlusive disease in the left lower extremity. Wound cultures collected on 01/03/2020 were positive for 3+ Aeromonas hydrophilia/caviae, 2+ Citrobacter braakii, 1+ Proteus mirabilis, rare Staphylococus aureus, anaerobic cocci, actinomyces odontolyticus, Bacteroides fragilis; beta-lactamase positive. She completed courses of Levaquin and Augmentin. Weeks later, she developed a mass of localized lymphedema of her right medial thigh that was red and warm; this resolved following a 14-day course of Levaquin and Augmentin. Progress of Wound: Toña returns today for follow up of ulcers of her right lower extremity. Her ulcers continue to improve in size and appearance with the use of Apligraf. She continues to report difficulty with her wound products/dressings coming off when she removes the outer ABD dressing. Her anterior dressing stayed on for approximately 4 days and her posterior dressing stayed on for approximately 3 days. When Apligraf fell off, she resumed use of Santyl to the anterior RLE ulcer. Irene-ulcer excoriation and erythema has diminished with the use of calmoseptine ointment. She denies any purulent/malodorous drainage from her ulcers. The patient has been generally noncompliant with the use of lymphedema pumps. She currently states she is having difficulty getting her lymphedema pumps over her right medial thigh swelling. She states this was controlled while on Keflex, but after discontinuing her antibiotics it became erythematous again. She was started on a course of Doxycycline, but feels she did better on Keflex. Her right medial thigh is still warm and red. She generally refuses compression due to reported intolerance. She has been noncompliant with instructions to elevate her legs more frequently. 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 She has been advised to take walking breaks when driving, but has been noncompliant with these instructions as well. She performs seated work, sitting at a desk without feet elevated. - Physical Exam Vital Signs Temp Pulse Resp BP 96.8 F L 16 L 16 159/67 H 07/03/20 08:45 07/03/20 08:45 07/03/20 08:45 07/03/20 08:45 General: Alert, Cooperative, No apparent distress HEENT: Atraumatic, Normocephalic Oral: Moist Mucosa Lungs: Normal air movement Abdomen: Obese Extremities: No clubbing, No cyanosis, Edema - Lower extremity lymphedema and edema, Peripheral Pulses Normal Skin: No rashes - Right medial localized mass of lymphedema of the right thigh is erythematous and warm., Ulcer/ Wound - Small amount of slough present. Good granulation tissue present. No malodor/purulent drainage. New epithelialization of posterior RLE ulcer edges. Mild periulcer excoriation of anterior and posterior ulcers. No warmth to touch. Wound Measurements and Assessment WC - Nurse 1 - General Ulcer Measurement Start: 07/03/20 08:45 Freq: Status: Active Protocol: Activity Type Activity Date Activity User E-Sign Co-Sign Detail Recorded Client Recorded Date Recorded By Document 07/03/20 08:45 MS [id number] 07/03/20 08:48 MS 07/03/20 08:45 [facility] Nurse 1 [Ulcer Assessment] #8 RLE Post -Current Size (cm) - Length 5 -Current Size (cm) - Width 3 -Current Size (cm) - Depth 0.1 -Total Square Cm 15 -Exudate Amt Large -Exudate Type Serosanguineous -Wound Margin Distinct, Outline Attached -Granulation Amt Medium (34-66%) -Slough/Fibrin Yes -Necrosis Amt Medium (34-66%) -Necrotic Tissue Type Adherent Slough -Texture (Irene-wound Skin Appearance) No Abnormality -Moisture (Irene-wound Skin Appearance No Abnormality ) -Color (Irene-wound Skin Appearance) No Abnormality -Temperature (Irene-wound Skin No Abnormality Appearance) (Pt Warm) -Ulcer Cleansing soap and water -Anesthetic Used 4% Lidocaine Solution #7 RLE Ant Cluster -Current Size (cm) - Length 1.8 -Current Size (cm) - Width 1.6 -Current Size (cm) - Depth 0.1 -Total Square Cm 2.88 -Exudate Amt Medium -Exudate Type Serosanguineous -Wound Margin Distinct, Outline Attached -Granulation Amt Medium (34-66%) -Slough/Fibrin Yes -Necrosis Amt Medium (34-66%) -Necrotic Tissue Type Adherent Slough -Texture (Irene-wound Skin Appearance) No Abnormality -Color (Irene-wound Skin Appearance) No Abnormality -Temperature (Irene-wound Skin No Abnormality Appearance) (Pt Warm) -Ulcer Cleansing soap and water -Foul Odor after Cleansing No -Anesthetic Used 4% Lidocaine Solution - Nurse 3 - General Ulcer D/C NN Start: 07/03/20 08:45 Freq: Status: Active Protocol: Activity Type Activity Date Activity User E-Sign Co-Sign Detail Recorded Client Recorded Date Recorded By Document 07/03/20 09:50 RAMON [id number] 07/03/20 09:50 RAMON 07/03/20 09:50 Wound Care Nurse 3 [Wound Dressing] #8 RLE Post -Ulcer Cleansing Rinsed/ Irrigated with Saline -Primary Dressing Covered/Secured Dry Gauze, with Secured with Tape #7 RLE Ant Cluster -Primary Dressing Covered/Secured Dry Gauze, with Secured with Tape Pain Scale: 0-10 Numeric [Pain] -Is Patient Pain Free? Yes - Visit Discharge [Visit Discharge Information] -Discharge Condition Stable -Ambulatory Status Ambulatory -Transportation Private Auto Psych/Mental Status: Normal Affect, Appropriate Debridement Note Post-Debridement Measurements/Treatment - Nurse 3 - General Ulcer D/C NN Start: 07/03/20 08:45 Freq: Status: Active Protocol: Activity Type Activity Date Activity User E-Sign Co-Sign Detail Recorded Client Recorded Date Recorded By Document 07/03/20 09:50 RAMON [id number] 07/03/20 09:50 KR 07/03/20 09:50 Wound Care Nurse 3 #8 RLE Post -Ulcer Cleansing Rinsed/ Irrigated with Saline -Primary Dressing Covered/Secured with Dry Gauze, Secured with Tape #7 RLE Ant Cluster -Primary Dressing Covered/Secured with Dry Gauze, Secured with Tape Pain Scale: 0-10 Numeric Is Patient Pain Free? Yes WC - Visit Discharge Discharge Condition Stable Ambulatory Status Ambulatory Transportation Private Auto Wound debrided: RLE anterior ulcer Laterality: Right Type of Debridement: Excisional debridement Anesthesia Used: 4% Lidocaine Solution, Cetacaine Depth: in the subcutaneous layer Percentage of wound debrided: 100 Instrument Used: 5mm curette Tissue Removed: Slough and devitalized tissue Severity: Fat Layer Exposed Amount of bleeding with debridement: Mild Bleeding Controlled with: Pressure Patient did not tolerate procedure well - Additional Wound Wound debrided: RLE posterior ulcer Laterality: Right Type of Debridement: Excisional debridement Anesthesia Used: 4% Lidocaine Solution, Cetacaine Depth: in the subcutaneous layer Percentage of wound debrided: 100 Instrument Used: 7mm curette Tissue Removed: Slough and devitalized tissue Severity: Fat Layer Exposed Amount of bleeding with debridement: Mild Bleeding Controlled with: Pressure Patient tolerated procedure: Patient did not tolerate procedure well Assessment/Plan Assessment: Right posterior lower leg ulcer. Right anterior lower leg ulcer. Left anterior lower leg ulcer - healed. Chronic bilateral lower extremity swelling, edema, and lymphedema. Chronic venous insufficiency Plan: Debridement performed today in clinic as above. Given the duration of the venous ulcers and failure of the ulcers to respond to standard wound care, we applied and were approved for Puraply, NuShield and Apligraf. The patient had completed 6 applications of Puraply to the posterior right lower extremity ulcer. Puraply was then discontinued due to failure of wound to improve in size and appearance, which I suspect was due to the patient's inability to tolerate thorough debridement and refusal to appropriately utilize compression. With an increase in the use of her lymphedema pumps, the patient's wound sizes improved and she is now able to better tolerate debridement of her posterior RLE ulcer. Puraply was again applied for and approved. Apligraf #5 (advanced skin substitute #6) was applied to the posterior and anterior RLE ulcers today. 100% of the product was used. This was covered with Adaptic touch and secured with Steri-Strips. Steri-Strips and edges of Adaptic touch were secured with a VAC- veil in attempt to avoid detachment of Steri-Strips and Adaptic touch with dressing changes. (The VAC dressing does not cover any portion of the wound). Super sorb dressing was is over top and secured with tape. An ABD dressing will be applied as the outermost dressing. The ABD dressings may be changed daily or more frequently as needed due to contamination/saturation. The super sorb dressing should be changed on Monday. The patient was instructed to keep the dressings clean and dry, covering them while showering, or sponge bathing. She was instructed to leave the Apligraf in place until her visit next week. Calmoseptine will be continued to the anterior periulcer area for skin irritation/excoriation, so long as it does not interfere with keeping her dressings clean and dry. Compression: As previously discussed, lymphedema pumps should be utilized for 1 hour 3 times daily; if this is not well-tolerated, the patient should continue to use the pumps as long and frequently as possible, working toward this goal. Offloading: The patient was advised to avoid pressure on her ulcer sites. She is to keep feet elevated at or above waist level when seated. She is to avoid prolonged standing, sitting, or dangling of legs. When driving, she is to perform walking breaks every hour at minimum. Diet: Patient encouraged to increase protein and vitamin C intake while taking caution to avoid high carbohydrate and/or sugar intake. Also instructed to avoid high sodium intake. Labs/cultures/imaging: Labs from 02/21/2020 showed mild decrease in prealbumin but this may be because of infection, negative acute phase reactant. CRP and ESR are elevated but CBC and chemistry were unremarkable. Vascular studies from 2017 were reviewed. Wound cultures collected on 01/03/2020 were positive for 3+ Aeromonas hydrophilia/caviae, 2+ Citrobacter braakii, 1+ Proteus mirabilis, rare Staphylococus aureus, anaerobic cocci, actinomyces odontolyticus, Bacteroides fragilis; beta-lactamase positive. She was previously started on Levaquin and Augmentin and completed a 21-day course of both of these antibiotics. Repeat wound culture results from 02/21/2020 reviewed and were negative for anaerobic bacteria; aerobic culture positive for very rare gram positive constanza, no sensitivities reported. Patient completed an additional 14-day course of Levaquin and Augmentin and her cellulitis has resolved. Subsequent development of erythema and warmth of her right medial thigh lymphedema resolved following a course of doxycycline. Erythema and warmth of her right medial thigh lymphedema recurred in late May and resolved with cephalexin 500 mg p.o. 3 times daily for 10 days. A few days after discontinuation of cephalexin, the erythema and warmth began to recur and another 10-day course of cephalexin 500 mg p.o. 3 times daily was given. Few days after discontinuation of antibiotic, she reports return of her right medial thigh erythema and tenderness, as well as having 1 day of a fever of 102F which resolved spontaneously. Doxycycline has been of some benefit, though she feels Keflex was more beneficial. Another 10-day course of Keflex will be prescribed. Follow-up: Return to clinic in 1 week for re-evaluation. Return sooner or report to the emergency room should symptoms worsen, or new symptoms arise. Note: Float: [place] speech recognition asphalt spreader operator software was used to create portions of this document. Sound-alike and misspelled words, as well as other asphalt spreader operator errors may be contained in the documentation. Multi Select Codes - Integumentary Integumentary CPT Codes: 53258 Shante subq tissue 20 sq cm/<, 38602 Skin sub graft trnk/arm/leg
[2020-07-10 08:28] VITALS: BP 174/89; PULSE 69; RESP 16; TEMP 35.8; BMI 49.0
--- NOTE | 2020-07-10 10:49 | PN.PCM_ITS ---
(1) Ulcer of right lower extremity with fat layer exposed Status: Chronic Code(s): L97.912 - Non-pressure chronic ulcer of unspecified part of right lower leg with fat layer exposed (2) Venous ulcer of right leg Status: Chronic Code(s): I83.019 - Varicose veins of right lower extremity with ulcer of unspecified site; L97.919 - Non-pressure chronic ulcer of unspecified part of right lower leg with unspecified severity (3) Venous insufficiency Status: Chronic (4) Cellulitis of right lower extremity Status: Acute Code(s): L03.115 - Cellulitis of right lower limb (5) Lymphedema Status: Chronic Code(s): I89.0 - Lymphedema, not elsewhere classified (6) Morbid obesity Status: Chronic Code(s): E66.01 - Morbid (severe) obesity due to excess calories Type of Wound Date of Service: 07/10/20 Chief Complaint: Severe swelling, edema, and lymphedema of the lower extremities with ulcerations of the right lower extremity. History of Wound: [facility] for evaluation and treatment of bilateral lower leg ulcers. The patient is known [facility] from treatment of prior lower extremity ulcers. She has a PMH significant for chronic lymphedema, venous insufficiency, atrial fibrillation (on Eliquis), morbid obesity, hypothyroidism. She reported development of her posterior right lower leg ulcer in April. She initially was using Manuka honey to this ulcer, but then started using Vaseline instead. She reported her anterior right lower extremity ulcer developed in August, and she had been applying Vaseline to this daily. Her anterior left lower extremity ulcer developed approximately 1 week prior to her initial January 2020 appt, and she had been applying Vaseline to this daily as well. She notes that approximately 4 to 6 weeks prior, the ulcer on her posterior right lower leg began increasing in soreness. She has lymphedema pumps at home, but had not been using these due to reported pain with use which is related to her ulcers. She does not use compression at home. She reports frequent dangling of her legs while seated at her computer for work. She does not frequently elevate her feet when seated. The patient denied any fever, chills, nausea, vomiting, or diarrhea. Denied any increasing redness or swelling of the affected area. She did note foul-smelling drainage from her right lower extremity. She had not been on any recent antibiotics. She reported having lab work done approximately 6 weeks prior; these records will be requested for review multiple times but never obtained. She had lower extremity arterial studies completed 05/16/16 which showed relatively normal arterial perfusion to ankle level bilaterally. Triphasic waveforms were noted at ankle level bilaterally. Resting ankle-brachial indices were bilaterally normal. The right digital-brachial index is normal, consistent with normal arterial perfusion at distal, small-vessel level in the right lower extremity. The left digital- brachial index is mildly diminished, suggesting the presence of mild, distal, small-vessel arterial occlusive disease in the left lower extremity. Wound cultures collected on 01/03/2020 were positive for 3+ Aeromonas hydrophilia/caviae, 2+ Citrobacter braakii, 1+ Proteus mirabilis, rare Staphylococus aureus, anaerobic cocci, actinomyces odontolyticus, Bacteroides fragilis; beta-lactamase positive. She completed courses of Levaquin and Augmentin. Weeks later, she developed a mass of localized lymphedema of her right medial thigh that was red and warm; this resolved following a 14-day course of Levaquin and Augmentin. Progress of Wound: Toña returns today for follow up of ulcers of her right lower extremity. Her posterior ulcer again improved in size and appearance with the use of Apligraf (5/5 applications completed). Her anterior RLE ulcer is slightly increased in length today. She was able to keep her skin sub in place for the entire past week. She denies any fevers. She denies any purulent/malodorous drainage from her ulcers. The patient has been generally noncompliant with the use of lymphedema pumps. She currently states she is having difficulty getting her lymphedema pumps over her right medial thigh swelling. She states this was controlled while on Keflex, but after discontinuing her antibiotics it became erythematous again. She was started on a course of Doxycycline, but felt she did better on Keflex. Keflex was resumed last week and the redness and warmth have improved. She generally refuses compression due to reported intolerance. She has been noncompliant with instructions to elevate her legs more frequently. 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 She has been advised to take walking breaks when driving, but has been noncompliant with these instructions as well. She performs seated work, sitting at a desk without feet elevated. - Physical Exam Vital Signs Temp Pulse Resp BP 96.5 F L 69 16 174/89 H 07/10/20 08:28 07/10/20 08:28 07/10/20 08:28 07/10/20 08:28 General: Alert, Cooperative, No apparent distress HEENT: Atraumatic, Normocephalic Oral: Moist Mucosa Lungs: Normal air movement Abdomen: Obese Extremities: Capillary Refill Less than 3 Seconds, Peripheral Pulses Normal Skin: Ulcer/ Wound - RLE posterior ulcer is improved in size and appearance, moderate slough and devitalized tissue, no purulent/malodorous drainage. Anterior RLE ulcer is slightly increased in length, small slough and devitalized tissue, no purulent/malodorous drainage. Mild to moderate excoriation of periulcer areas Wound Measurements and Assessment WC - Nurse 1 - General Ulcer Measurement Start: 07/03/20 08:45 Freq: Status: Active Protocol: Activity Type Activity Date Activity User E-Sign Co-Sign Detail Recorded Client Recorded Date Recorded By Document 07/10/20 08:28 MO [id number] 07/10/20 08:31 MS 07/10/20 08:28 Wound Center Nurse 1 [Ulcer Assessment] #8 RLE Post -Current Size (cm) - Length 4.8 -Current Size (cm) - Width 3.9 -Current Size (cm) - Depth 0.1 -Total Square Cm 18.72 -Exudate Amt Medium -Exudate Type Serosanguineous -Wound Margin Distinct, Outline Attached -Granulation Amt Medium (34-66%) -Slough/Fibrin Yes -Necrosis Amt Medium (34-66%) -Necrotic Tissue Type Adherent Slough -Texture (Irene-wound Skin Appearance) No Abnormality -Moisture (Irene-wound Skin Appearance No Abnormality ) -Color (Irene-wound Skin Appearance) No Abnormality -Temperature (Irene-wound Skin No Abnormality Appearance) (Pt Warm) -Tenderness on Palpation (Irene-wound No Skin Appearance) -Ulcer Cleansing Wound Cleanser -Foul Odor after Cleansing No -Anesthetic Used 4% Lidocaine Solution #7 RLE Ant Cluster -Current Size (cm) - Length 2.3 -Current Size (cm) - Width 1.3 -Current Size (cm) - Depth 0.1 -Total Square Cm 2.99 -Exudate Amt Small -Exudate Type Serosanguineous -Wound Margin Distinct, Outline Attached -Granulation Amt Medium (34-66%) -Slough/Fibrin Yes -Necrosis Amt Medium (34-66%) -Texture (Irene-wound Skin Appearance) No Abnormality -Moisture (Irene-wound Skin Appearance No Abnormality ) -Color (Irene-wound Skin Appearance) No Abnormality -Temperature (Irene-wound Skin No Abnormality Appearance) (Pt Warm) -Ulcer Cleansing Wound Cleanser -Foul Odor after Cleansing No -Anesthetic Used 4% Lidocaine Solution WC - Nurse 3 - General Ulcer D/C NN Start: 07/03/20 08:45 Freq: Status: Active Protocol: Activity Type Activity Date Activity User E-Sign Co-Sign Detail Recorded Client Recorded Date Recorded By Document 07/10/20 09:11 RAMON [id number] 07/10/20 09:12 RAMON 07/10/20 09:11 Wound Care Nurse 3 [Wound Dressing] #8 RLE Post -Primary Dressing Applied C Hydrogel ($) -Primary Dressing Covered/Secured Dry Gauze, with Secured with Tape #7 RLE Ant Cluster -Primary Dressing Applied C Hydrogel ($) -Primary Dressing Covered/Secured Dry Gauze, with Secured with Tape Pain Scale: 0-10 Numeric [Pain] -Is Patient Pain Free? Yes WC - Visit Discharge [Visit Discharge Information] -Discharge Condition Stable -Ambulatory Status Ambulatory -Transportation Private Auto Psych/Mental Status: Normal Affect, Appropriate Debridement Note Post-Debridement Measurements/Treatment WC - Nurse 2 - General Ulcer CM Notes Start: 07/03/20 08:45 Freq: Status: Active Protocol: Activity Type Activity Date Activity User E-Sign Co-Sign Detail Recorded Client Recorded Date Recorded By Document 07/03/20 15:23 PL [id number] 07/03/20 15:27 PL 07/03/20 15:23 Wound Center Nurse 2 #8 RLE Post -Time 09:10 -Correct Patient Yes -Correct Side, Site, Position Yes -Correct Procedure Yes -Procedure Performed Yes -Type of Procedure Debridement -Clinical Debridement Subcutaneous -Tissue Removed Subcutaneous -Post Debridement (cm) - Length 5.2 -Post Debridement (cm) - Width 3.5 -Post Debridement (cm) - Depth 0.1 -Total Square (Post) (cm) 18.20 -Area of Debridement (cm) - Length 5.2 -Area of Debridement (cm) - Width 3.5 -Total Square (Area) (cm) 18.20 -Tunneling No -Undermining/Tunneling No -Circular Undermining No -Wound/Ulcer Outcome Not Healed -Ulcer Cleansing Rinsed/ Irrigated with Saline -Foul Odor after Cleansing No -Bioengineered Tissue Yes -Type of Bioengineered Tissue Apligraf -Expiration Date 07/14/20 -Product Lot Number [id number] -Percent Used 100 -Lot number of Saline Used [id number] -Bleeding Controlled with Pressure -Treatment Response Procedure Tolerated Well -Debridement - Subq, 1st 20sq cm No -Apply Skin Sub - 1st 25 sq cm - Legs 1 -Apligraf (per sq cm) 44 #7 RLE Ant Cluster -Time 09:10 -Correct Patient Yes -Correct Side, Site, Position Yes -Correct Procedure Yes -Procedure Performed Yes -Type of Procedure Debridement -Clinical Debridement Subcutaneous -Tissue Removed Subcutaneous -Post Debridement (cm) - Length 1.9 -Post Debridement (cm) - Width 1.1 -Post Debridement (cm) - Depth 0.1 -Total Square (Post) (cm) 2.09 -Area of Debridement (cm) - Length 1.9 -Area of Debridement (cm) - Width 1.1 -Total Square (Area) (cm) 2.09 -Tunneling No -Undermining/Tunneling No -Circular Undermining No -Wound/Ulcer Outcome Not Healed -Ulcer Cleansing Rinsed/ Irrigated with Saline -Foul Odor after Cleansing No -Bioengineered Tissue No -Bleeding Controlled with Pressure -Treatment Response Procedure Tolerated Well -Debridement - Subq, 1st 20sq cm Yes Pain Scale: 0-10 Numeric Is Patient Pain Free? Yes WC - Nurse 3 - General Ulcer D/C NN Start: 07/03/20 08:45 Freq: Status: Active Protocol: Activity Type Activity Date Activity User E-Sign Co-Sign Detail Recorded Client Recorded Date Recorded By Document 07/03/20 09:50 KR [id number] 07/03/20 09:50 KR Document 07/10/20 09:11 KR [id number] 07/10/20 09:12 KR 07/03/20 07/10/20 09:50 09:11 Wound Care Nurse 3 #8 RLE Post -Ulcer Cleansing Rinsed/ Irrigated with Saline -Primary Dressing Applied C Hydrogel ($) -Primary Dressing Covered/Secured with Dry Gauze, Dry Gauze, Secured with Secured with Tape Tape #7 RLE Ant Cluster -Primary Dressing Applied C Hydrogel ($) -Primary Dressing Covered/Secured with Dry Gauze, Dry Gauze, Secured with Secured with Tape Tape Pain Scale: 0-10 Numeric Is Patient Pain Free? Yes Yes WC - Visit Discharge Discharge Condition Stable Stable Ambulatory Status Ambulatory Ambulatory Transportation Private Auto Private Auto Wound debrided: RLE anterior ulcer Laterality: Right Type of Debridement: Excisional debridement Anesthesia Used: 4% Lidocaine Solution, Cetacaine Depth: in the subcutaneous layer Percentage of wound debrided: 100 Instrument Used: 7mm curette Tissue Removed: Slough and devitalized tissue Severity: Fat Layer Exposed Amount of bleeding with debridement: Mild Bleeding Controlled with: Pressure Patient tolerated procedure well - Additional Wound Wound debrided: RLE posterior ulcer Laterality: Right Type of Debridement: Excisional debridement Anesthesia Used: 4% Lidocaine Solution, Cetacaine Depth: in the subcutaneous layer Percentage of wound debrided: 100 Instrument Used: 7mm curette Tissue Removed: Slough and devitalized tissue Severity: Fat Layer Exposed Amount of bleeding with debridement: Mild Bleeding Controlled with: Pressure Patient tolerated procedure: Patient tolerated procedure well Assessment/Plan Active Problems (Last Updated 01/11/18 @ 08:41 by Adeline Andres) Venous ulcer of right leg (Chronic) Cellulitis of right lower extremity (Acute) Venous insufficiency (Chronic) Morbid obesity (Chronic) Ulcer of right lower extremity with fat layer exposed (Chronic) Lymphedema (Chronic) Assessment: Right posterior lower leg ulcer. Right anterior lower leg ulcer. Left anterior lower leg ulcer - healed. Chronic bilateral lower extremity swelling, edema, and lymphedema. Chronic venous insufficiency Plan: Debridement performed today in clinic as above. Given the duration of the venous ulcers and failure of the ulcers to respond to standard wound care, we applied and were approved for Puraply, NuShield and Apligraf. The patient had previously completed 6 applications of Puraply to the posterior right lower extremity ulcer. Puraply was then discontinued due to failure of wound to improve in size and appearance, which I suspect was due to the patient's inability to tolerate thorough debridement and refusal to appropriately utilize compression. With an increase in the use of her lymphedema pumps and multiple approaches to wound debridement, the patient's wound sizes improved and bioburden was reduced and she is now able to better tolerate debridement of her posterior RLE ulcer. Puraply was again applied for and approved. Of the 10 approved applications, she has had 1 Puraply and 5/5 Apligraf applications. Nushield #1 (advanced skin substitute #7) was applied to the posterior RLE ulcer today. 100% of the product was used. This was covered with Adaptic touch and secured with Steri-Strips. Steri-Strips and edges of Adaptic touch were secured with a VAC- veil in attempt to avoid detachment of Steri-Strips and Adaptic touch with dressing changes. (The VAC dressing does not cover any portion of the wound). Super sorb dressing was is over top and secured with tape. An ABD dressing will be applied as the outermost dressing. The ABD dressings may be changed daily or more frequently as needed due to contamination/saturation. The super sorb dressing should be changed Q3days. The patient was instructed to keep the posterior RLE dressings clean and dry, covering them while showering, or sponge bathing. She was instructed to leave the Nushield in place until her visit next week. Daily Santyl dressing changes will be resumed to the anterior RLE ulcer. Wash with antibacterial soap and water between each dressing change. Calmoseptine will be continued to the anterior periulcer area for skin irritation/excoriation, so long as it does not interfere with keeping her dressings clean and dry. Compression: As previously discussed, lymphedema pumps should be utilized for 1 hour 3 times daily; if this is not well-tolerated, the patient should continue to use the pumps as long and frequently as possible, working toward this goal. Offloading: The patient was advised to avoid pressure on her ulcer sites. She is to keep feet elevated at or above waist level when seated. She is to avoid prolonged standing, sitting, or dangling of legs. When driving, she is to perform walking breaks every hour at minimum. Diet: Patient encouraged to increase protein and vitamin C intake while taking caution to avoid high carbohydrate and/or sugar intake. Also instructed to avoid high sodium intake. Labs/cultures/imaging: Labs from 02/21/2020 showed mild decrease in prealbumin but this may be because of infection, negative acute phase reactant. CRP and ESR are elevated but CBC and chemistry were unremarkable. Vascular studies from 2017 were reviewed. Wound cultures collected on 01/03/2020 were positive for 3+ Aeromonas hydrophilia/caviae, 2+ Citrobacter braakii, 1+ Proteus mirabilis, rare Staphylococus aureus, anaerobic cocci, actinomyces odontolyticus, Bacteroides fragilis; beta-lactamase positive. She was previously started on Levaquin and Augmentin and completed a 21-day course of both of these antibiotics. Repeat wound culture results from 02/21/2020 reviewed and were negative for anaerobic bacteria; aerobic culture positive for very rare gram positive constanza, no sensitivities reported. Patient completed an additional 14-day course of Levaquin and Augmentin and her cellulitis has resolved. Subsequent development of erythema and warmth of her right medial thigh lymphedema resolved following a course of doxycycline. Erythema and warmth of her right medial thigh lymphedema recurred in late May and resolved with cephalexin 500 mg p.o. 3 times daily for 10 days. A few days after discontinuation of cephalexin, the erythema and warmth began to recur and ano ther 10-day course of cephalexin 500 mg p.o. 3 times daily was given. Few days after discontinuation of antibiotic, she reports return of her right medial thigh erythema and tenderness, as well as having 1 day of a fever of 102F which resolved spontaneously. She felt Keflex was more beneficial than doxycycline. Another course of Keflex was prescribed and has resulted in decreased erythema and warmth of the R medial thigh. Keflex will be extended. Follow-up: Return to clinic in 1 week for re-evaluation. Return sooner or report to the emergency room should symptoms worsen, or new symptoms arise. Note: [email or web address] speech recognition real estate agency licensee software was used to create portions of this document. Sound-alike and misspelled words, as well as other real estate agency licensee errors may be contained in the documentation. Multi Select Codes - Integumentary Integumentary CPT Codes: 89335 Shante subq tissue 20 sq cm/< - 2 separate wounds , 79061 Skin sub graft trnk/arm/leg
[2020-07-17 09:19] VITALS: BP 157/71; PULSE 72; RESP 18; TEMP 36.1; BMI 49.0
--- NOTE | 2020-07-17 13:30 | PN.PCM_ITS ---
(1) Ulcer of right lower extremity with fat layer exposed Status: Chronic Code(s): L97.912 - Non-pressure chronic ulcer of unspecified part of right lower leg with fat layer exposed (2) Venous ulcer of right leg Status: Chronic Code(s): I83.019 - Varicose veins of right lower extremity with ulcer of unspecified site; L97.919 - Non-pressure chronic ulcer of unspecified part of right lower leg with unspecified severity (3) Venous insufficiency Status: Chronic (4) Cellulitis of right lower extremity Status: Acute Code(s): L03.115 - Cellulitis of right lower limb (5) Lymphedema Status: Chronic Code(s): I89.0 - Lymphedema, not elsewhere classified (6) Morbid obesity Status: Chronic Code(s): E66.01 - Morbid (severe) obesity due to excess calories Type of Wound Date of Service: 07/17/20 Chief Complaint: Severe swelling, edema, and lymphedema of the lower extremities with ulcerations of the right lower extremity. History of Wound: [facility] for evaluation and treatment of bilateral lower leg ulcers. The patient is [facility] from treatment of prior lower extremity ulcers. She has a PMH significant for chronic lymphedema, venous insufficiency, atrial fibrillation (on Eliquis), morbid obesity, hypothyroidism. She reported development of her posterior right lower leg ulcer in April. She initially was using Manuka honey to this ulcer, but then started using Vaseline instead. She reported her anterior right lower extremity ulcer developed in August, and she had been applying Vaseline to this daily. Her anterior left lower extremity ulcer developed approximately 1 week prior to her initial January 2020 appt, and she had been applying Vaseline to this daily as well. She notes that approximately 4 to 6 weeks prior, the ulcer on her posterior right lower leg began increasing in soreness. She has lymphedema pumps at home, but had not been using these due to reported pain with use which is related to her ulcers. She does not use compression at home. She reports frequent dangling of her legs while seated at her computer for work. She does not frequently elevate her feet when seated. The patient denied any fever, chills, nausea, vomiting, or diarrhea. Denied any increasing redness or swelling of the affected area. She did note foul-smelling drainage from her right lower extremity. She had not been on any recent antibiotics. She reported having lab work done approximately 6 weeks prior; these records will be requested for review multiple times but never obtained. She had lower extremity arterial studies completed 05/16/16 which showed relatively normal arterial perfusion to ankle level bilaterally. Triphasic waveforms were noted at ankle level bilaterally. Resting ankle-brachial indices were bilaterally normal. The right digital-brachial index is normal, consistent with normal arterial perfusion at distal, small-vessel level in the right lower extremity. The left digital- brachial index is mildly diminished, suggesting the presence of mild, distal, small-vessel arterial occlusive disease in the left lower extremity. Wound cultures collected on 01/03/2020 were positive for 3+ Aeromonas hydrophilia/caviae, 2+ Citrobacter braakii, 1+ Proteus mirabilis, rare Staphylococus aureus, anaerobic cocci, actinomyces odontolyticus, Bacteroides fragilis; beta-lactamase positive. She completed courses of Levaquin and Augmentin. Weeks later, she developed a mass of localized lymphedema of her right medial thigh that was red and warm; this resolved following a 14-day course of Levaquin and Augmentin. Progress of Wound: Toña returns today for follow up of ulcers of her right lower extremity. Her posterior ulcer increased in size in the past week. She tolerated Nushield well to the posterior RLE ulcer, though she states it only stayed on for 4 days. She then switched to daily Aquacel Ag dressings to the posterior RLE ulcer. Her anterior RLE ulcer is stable with the use of Santyl. She denies any fevers. She denies any purulent/malodorous drainage from her ulcers. The patient has been generally noncompliant with the use of lymphedema pumps. She currently states she is having difficulty getting her lymphedema pumps over her right medial thigh swelling. She states this was controlled while on Keflex, but after discontinuing her antibiotics it became erythematous again. She was started on a course of Doxycycline, but felt she did better on Keflex. Keflex was resumed and the redness and warmth improved. She generally refuses compression due to reported intolerance. She has been noncompliant with instructions to elevate her legs more frequently. 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 She has been advised to take walking breaks when driving, but has been noncompliant with these instructions as well. She performs seated work, sitting at a desk without feet elevated. - Physical Exam Vital Signs Temp Pulse Resp BP 97 F L 72 18 157/71 H 07/17/20 09:19 07/17/20 09:19 07/17/20 09:19 07/17/20 09:19 General: Alert, Cooperative, No apparent distress HEENT: Atraumatic, Normocephalic Oral: Moist Mucosa Lungs: Normal air movement Abdomen: Obese Skin: Ulcer/ Wound - RLE posterior ulcer is increased in size, though there are no clinical signs of infection. Moderate slough and devitalized tissue present. No purulent/malodorous drainage. Anterior RLE ulcer stable, small to moderate slough and devitalized tissue. No purulent/malodorous drainage., Excoriated - Moderate excoriation of periulcer areas. Wound Measurements and Assessment WC - Nurse 1 - General Ulcer Measurement Start: 07/03/20 08:45 Freq: Status: Active Protocol: Activity Type Activity Date Activity User E-Sign Co-Sign Detail Recorded Client Recorded Date Recorded By Document 07/17/20 09:19 [facility] [id number] 07/17/20 09:23 [facility] 07/17/20 09:19 Wound Center Nurse 1 [Ulcer Assessment] #8 RLE Post -Combined with other wound No -Current Size (cm) - Length 3.4 -Current Size (cm) - Width 4.4 -Current Size (cm) - Depth 0.1 -Total Square Cm 14.96 -Photo Taken No -Epithelialization None Present -Tunneling No -Undermining/Tunneling No -Circular Undermining No -Exudate Amt Medium -Exudate Type Serosanguineous -Wound Margin Distinct, Outline Attached -Granulation Amt Medium (34-66%) -Granulation Quality Red -Slough/Fibrin Yes -Necrosis Amt Medium (34-66%) -Necrotic Tissue Type Adherent Slough -Texture (Irene-wound Skin Appearance) Assessed, Scarring,Rash -Moisture (Irene-wound Skin Appearance Assessed,Dry/ ) Scaly -Color (Irene-wound Skin Appearance) Assessed -Temperature (Irene-wound Skin No Abnormality Appearance) (Pt Warm) -Tenderness on Palpation (Irene-wound No Skin Appearance) -Ulcer Cleansing Rinsed/ Irrigated with Saline -Foul Odor after Cleansing No -Anesthetic Used 4% Lidocaine Solution #7 RLE Ant Cluster -Combined with other wound No -Current Size (cm) - Length 2.1 -Current Size (cm) - Width 1.9 -Current Size (cm) - Depth 0.1 -Total Square Cm 3.99 -Photo Taken No -Epithelialization None Present -Tunneling No -Undermining/Tunneling No -Circular Undermining No -Exudate Amt Medium -Exudate Type Serosanguineous -Wound Margin Distinct, Outline Attached -Granulation Amt Medium (34-66%) -Granulation Quality Red -Slough/Fibrin Yes -Necrosis Amt Medium (34-66%) -Necrotic Tissue Type Adherent Slough -Texture (Irene-wound Skin Appearance) Assessed, Scarring,Rash -Moisture (Irene-wound Skin Appearance Assessed,Dry/ ) Scaly -Color (Irene-wound Skin Appearance) Assessed -Temperature (Irene-wound Skin No Abnormality Appearance) (Pt Warm) -Tenderness on Palpation (Irene-wound No Skin Appearance) -Ulcer Cleansing Rinsed/ Irrigated with Saline -Foul Odor after Cleansing No -Anesthetic Used 4% Lidocaine Solution [Edema Assessment] -Lower Limb Edema Present Yes -Right Calf (cm) 74.2 -Right Ankle (cm) 35.5 WC - Nurse 2 - General Ulcer CM Notes Start: 07/03/20 08:45 Freq: Status: Active Protocol: Activity Type Activity Date Activity User E-Sign Co-Sign Detail Recorded Client Recorded Date Recorded By Document 07/17/20 13:08 PEDRO LUIS [id number] 07/17/20 13:13 PEDRO LUIS 07/17/20 13:08 Wound Center Nurse 2 [Procedure/Treatment] #8 RLE Post -Time 09:37 -Correct Patient Yes -Correct Side, Site, Position Yes -Correct Procedure Yes -Procedure Performed Yes -Type of Procedure Debridement -Clinical Debridement Subcutaneous -Tissue Removed Subcutaneous -Post Debridement (cm) - Length 5.0 -Post Debridement (cm) - Width 3.5 -Post Debridement (cm) - Depth 0.1 -Total Square (Post) (cm) 17.50 -Area of Debridement (cm) - Length 5.0 -Area of Debridement (cm) - Width 3.5 -Total Square (Area) (cm) 17.50 -Tunneling No -Undermining/Tunneling No -Circular Undermining No -Wound/Ulcer Outcome Not Healed -Ulcer Cleansing Rinsed/ Irrigated with Saline -Foul Odor after Cleansing No -Bioengineered Tissue Yes -Type of Bioengineered Tissue NuShield -Expiration Date 08/18/23 -Product Lot Number [id number] -Percent Used 100 -Lot number of Saline Used [id number] -Bleeding Controlled with Pressure -Treatment Response Procedure Tolerated Well -Debridement - Subq, 1st 20sq cm No -Apply Skin Sub - 1st 25 sq cm - Legs 1 -NuShield (per sq cm) 12 #7 RLE Ant Cluster -Time 09:37 -Correct Patient Yes -Correct Side, Site, Position Yes -Correct Procedure Yes -Procedure Performed Yes -Type of Procedure Debridement -Clinical Debridement Subcutaneous -Tissue Removed Subcutaneous -Post Debridement (cm) - Length 5.0 -Post Debridement (cm) - Width 3.5 -Post Debridement (cm) - Depth 0.1 -Total Square (Post) (cm) 17.50 -Area of Debridement (cm) - Length 5.0 -Area of Debridement (cm) - Width 3.5 -Total Square (Area) (cm) 17.50 -Tunneling No -Undermining/Tunneling No -Circular Undermining No -Wound/Ulcer Outcome Not Healed -Ulcer Cleansing Rinsed/ Irrigated with Saline -Foul Odor after Cleansing No -Bioengineered Tissue No -Debridement - Subq, 1st 20sq cm No [See Physician Procedure note for Specifics] Pain Scale: 0-10 Numeric [Pain] -Is Patient Pain Free? Yes WC - Nurse 3 - General Ulcer D/C NN Start: 07/03/20 08:45 Freq: Status: Active Protocol: Activity Type Activity Date Activity User E-Sign Co-Sign Detail Recorded Client Recorded Date Recorded By Document 07/17/20 10:16 [facility] [id number] 07/17/20 10:17 [facility] 07/17/20 10:16 Wound Care Nurse 3 [Wound Dressing] #8 RLE Post -Other Dressing nushield -Primary Dressing Covered/Secured Secured with with Tape -Other Covering super absorber drsg #7 RLE Ant Cluster -Ulcer Cleansing Rinsed/ Irrigated with Saline -Foul Odor after Cleansing No -Primary Dressing Applied Other -Other Dressing hydrogel -Primary Dressing Covered/Secured Secured with with Tape,Other -Other Covering abd [Post Procedure Tolerated] -Treatment Response Procedure Tolerated Well Pain Scale: 0-10 Numeric [Pain] -Is Patient Pain Free? Yes - Visit Discharge [Visit Discharge Information] -Discharge Condition Stable -Ambulatory Status Ambulatory -Transportation Private Auto Psych/Mental Status: Normal Affect, Appropriate Debridement Note Post-Debridement Measurements/Treatment - Nurse 2 - General Ulcer CM Notes Start: 07/03/20 08:45 Freq: Status: Active Protocol: Activity Type Activity Date Activity User E-Sign Co-Sign Detail Recorded Client Recorded Date Recorded By Document 07/03/20 15:23 PL [id number] 07/03/20 15:27 PL Document 07/10/20 12:42 PL [id number] 07/10/20 12:46 PL Document 07/17/20 13:08 PL [id number] 07/17/20 13:13 PL 07/03/20 07/10/20 07/17/20 15:23 12:42 13:08 Wound Center Nurse 2 #8 RLE Post -Time 09:10 08:41 09:37 -Correct Patient Yes Yes Yes -Correct Side, Site, Position Yes Yes Yes -Correct Procedure Yes Yes Yes -Procedure Performed Yes Yes Yes -Type of Procedure Debridement Debridement Debridement -Clinical Debridement Subcutaneous Subcutaneous Subcutaneous -Tissue Removed Subcutaneous Subcutaneous Subcutaneous -Post Debridement (cm) - Length 5.2 4.0 5.0 -Post Debridement (cm) - Width 3.5 3.5 3.5 -Post Debridement (cm) - Depth 0.1 0.1 0.1 -Total Square (Post) (cm) 18.20 14.00 17.50 -Area of Debridement (cm) - Length 5.2 4.0 5.0 -Area of Debridement (cm) - Width 3.5 3.5 3.5 -Total Square (Area) (cm) 18.20 14.00 17.50 -Tunneling No No No -Undermining/Tunneling No No No -Circular Undermining No No No -Wound/Ulcer Outcome Not Healed Not Healed Not Healed -Ulcer Cleansing Rinsed/ Rinsed/ Rinsed/ Irrigated with Irrigated with Irrigated with Saline Saline Saline -Foul Odor after Cleansing No No No -Bioengineered Tissue Yes Yes Yes -Type of Bioengineered Tissue Apligraf [facility] -Expiration Date 07/14/20 11/01/2308/17/24 -Product Lot Number [id number] -Percent Used 100 100 100 -Lot number of Saline Used [id number] -Bleeding Controlled with Pressure Pressure Pressure -Treatment Response Procedure Procedure Procedure Tolerated Well Tolerated Well Tolerated Well -Debridement - Subq, 1st 20sq cm No No No -Apply Skin Sub - 1st 25 sq cm - Legs 1 1 1 -Apligraf (per sq cm) 44 -NuShield (per sq cm) 12 12 #7 RLE Ant Cluster -Time 09:10 08:41 09:37 -Correct Patient Yes Yes Yes -Correct Side, Site, Position Yes Yes Yes -Correct Procedure Yes Yes Yes -Procedure Performed Yes Yes Yes -Type of Procedure Debridement Debridement Debridement -Clinical Debridement Subcutaneous Subcutaneous Subcutaneous -Tissue Removed Subcutaneous Subcutaneous Subcutaneous -Post Debridement (cm) - Length 1.9 2.2 5.0 -Post Debridement (cm) - Width 1.1 1.1 3.5 -Post Debridement (cm) - Depth 0.1 0.1 0.1 -Total Square (Post) (cm) 2.09 2.42 17.50 -Area of Debridement (cm) - Length 1.9 2.2 5.0 -Area of Debridement (cm) - Width 1.1 1.1 3.5 -Total Square (Area) (cm) 2.09 2.42 17.50 -Tunneling No No No -Undermining/Tunneling No No No -Circular Undermining No No No -Wound/Ulcer Outcome Not Healed Not Healed Not Healed -Ulcer Cleansing Rinsed/ Rinsed/ Rinsed/ Irrigated with Irrigated with Irrigated with Saline Saline Saline -Foul Odor after Cleansing No No No -Bioengineered Tissue No No No -Bleeding Controlled with Pressure -Treatment Response Procedure Tolerated Well -Debridement - Subq, 1st 20sq cm Yes Yes No Pain Scale: 0-10 Numeric Is Patient Pain Free? Yes Yes Yes WC - Nurse 3 - General Ulcer D/C NN Start: 07/03/20 08:45 Freq: Status: Active Protocol: Activity Type Activity Date Activity User E-Sign Co-Sign Detail Recorded Client Recorded Date Recorded By Document 07/03/20 09:50 RAMON [id number] 07/03/20 09:50 KR Document 04/09/21 09:11 KR [id number] 07/10/20 09:12 KR Document 07/17/20 10:16 [facility] [id number] 07/17/20 10:17 [facility] 07/03/20 07/10/20 07/17/20 09:50 09:11 10:16 Wound Care Nurse 3 #8 RLE Post -Ulcer Cleansing Rinsed/ Irrigated with Saline -Primary Dressing Applied C Hydrogel ($) -Other Dressing nushield -Primary Dressing Covered/Secured with Dry Gauze, Dry Gauze, Secured with Secured with Secured with Tape Tape Tape -Other Covering super absorber drsg #7 RLE Ant Cluster -Ulcer Cleansing Rinsed/ Irrigated with Saline -Foul Odor after Cleansing No -Primary Dressing Applied C Hydrogel ($) Other -Other Dressing hydrogel -Primary Dressing Covered/Secured with Dry Gauze, Dry Gauze, Secured with Secured with Secured with Tape,Other Tape Tape -Other Covering abd Treatment Response Procedure Tolerated Well Pain Scale: 0-10 Numeric Is Patient Pain Free? Yes Yes Yes WC - Visit Discharge Discharge Condition Stable Stable Stable Ambulatory Status Ambulatory Ambulatory Ambulatory Transportation Private Auto Private Auto Private Auto Wound debrided: RLE anterior ulcer Laterality: Right Type of Debridement: Excisional debridement Anesthesia Used: 4% Lidocaine Solution, Cetacaine Depth: in the subcutaneous layer Percentage of wound debrided: 100 Instrument Used: 5mm curette Tissue Removed: Slough and devitalized tissue Severity: Fat Layer Exposed Amount of bleeding with debridement: Mild Bleeding Controlled with: Compression and gauze Patient did not tolerate procedure well - Additional Wound Wound debrided: RLE posterior ulcer Laterality: Right Type of Debridement: Excisional debridement Anesthesia Used: 4% Lidocaine Solution, Cetacaine Depth: in the subcutaneous layer Percentage of wound debrided: 100 Instrument Used: 7mm curette Tissue Removed: Slough and devitalized tissue Severity: Fat Layer Exposed Amount of bleeding with debridement: Mild Bleeding Controlled with: Compression and gauze Patient tolerated procedure: Patient did not tolerate procedure well Assessment/Plan Active Problems (Last Updated 01/11/18 @ 08:41 by Adeline Andres) Venous ulcer of right leg (Chronic) Cellulitis of right lower extremity (Acute) Venous insufficiency (Chronic) Morbid obesity (Chronic) Ulcer of right lower extremity with fat layer exposed (Chronic) Lymphedema (Chronic) Assessment: Right posterior lower leg ulcer. Right anterior lower leg ulcer. Left anterior lower leg ulcer - healed. Chronic bilateral lower extremity swelling, edema, and lymphedema. Chronic venous insufficiency Plan: Debridement performed today in clinic as above. Her tolerance of debridement was poor today. Given the duration of the venous ulcers and failure of the ulcers to respond to standard wound care, we applied and were approved for Puraply, NuShield and Apligraf. The patient had previously completed 6 applications of Puraply to the posterior right lower extremity ulcer. Puraply was then discontinued due to failure of wound to improve in size and appearance, which I suspect was due to the patient's inability to tolerate thorough debridement and refusal to appropriately utilize compression. With an increase in the use of her lymphedema pumps and multiple approaches to wound debridement, the patient's wound sizes improved and bioburden was reduced and she is now able to better tolerate debridement of her posterior RLE ulcer. Puraply was again applied for and approved. Of the 10 approved applications, she has had 1 Puraply and 5/5 Apligraf applications. Nushield #2 (advanced skin substitute #8) was applied to the posterior RLE ulcer today. 100% of the product was used. This was covered with Adaptic touch and secured with Steri-Strips. Steri-Strips and edges of Adaptic touch were secured with a VAC- veil in attempt to avoid deta chment of Steri-Strips and Adaptic touch with dressing changes. (The VAC dressing does not cover any portion of the wound). Super sorb dressing was placed over-top and secured with tape. An ABD dressing will be applied as the outermost dressing. The ABD dressings may be changed daily or more frequently as needed due to contamination/saturation. The super sorb dressing should be changed Q3days. The patient was instructed to keep the posterior RLE dressings clean and dry, covering them while showering, or sponge bathing. She was instructed to leave the Nushield in place until her visit next week. Daily Santyl dressing changes will be resumed to the anterior RLE ulcer. Wash with antibacterial soap and water between each dressing change. Calmoseptine will be continued to the anterior periulcer area for skin irritation/excoriation, so long as it does not interfere with keeping her dressings clean and dry. Compression: As previously discussed, lymphedema pumps should be utilized for 1 hour 3 times daily; if this is not well-tolerated, the patient should continue to use the pumps as long and frequently as possible, working toward this goal. Offloading: The patient was advised to avoid pressure on her ulcer sites. She is to keep feet elevated at or above waist level when seated. She is to avoid prolonged standing, sitting, or dangling of legs. When driving, she is to perfo rm walking breaks every hour at minimum. Diet: Patient encouraged to increase protein and vitamin C intake while taking caution to avoid high carbohydrate and/or sugar intake. Also instructed to avoid high sodium intake. Labs/cultures/imaging: Labs from 02/21/2020 showed mild decrease in prealbumin but this may be because of infection, negative acute phase reactant. CRP and ESR are elevated but CBC and chemistry were unremarkable. Vascular studies from 2017 were reviewed. Wound cultures collected on 01/03/2020 were positive for 3+ Aeromonas hydrophilia/caviae, 2+ Citrobacter braakii, 1+ Proteus mirabilis, rare Staphylococus aureus, anaerobic cocci, actinomyces odontolyticus, Bacteroides fragilis; beta-lactamase positive. She was previously started on Levaquin and Augmentin and completed a 21-day course of both of these antibiotics. Repeat wound culture results from 02/21/2020 reviewed and were negative for anaerobic bacteria; aerobic culture positive for very rare gram positive constanza, no sensitivities reported. Patient completed an additional 14-day course of Levaquin and Augmentin and her cellulitis has resolved. Subsequent development of erythema and warmth of her right medial thigh lymphedema resolved following a course of doxycycline. Erythema and warmth of her right medial thigh lymphedema recurred in late May and resolved with cephalexin 500 mg p.o. 3 times daily for 10 days. A few days after discontinuation of cephalexin, the erythema and warmth began to recur and another 10-day course of cephalexin 500 mg p.o. 3 times daily was given. Few days after discontinuation of antibiotic, she reports return of her right medial thigh erythema and tenderness, as well as having 1 day of a fever of 102F which resolved spontaneously. She felt Keflex was more beneficial than doxycycline. Another course of Keflex was prescribed and has resulted in decreased erythema and warmth of the R medial thigh. Keflex was extended and the erythema and warmth resolved. Follow-up: Return to clinic in 2 weeks for re-evaluation. Return sooner or report to the emergency room should symptoms worsen, or new symptoms arise. Note: Rover speech recognition system sales consultant software was used to create portions of this document. Sound-alike and misspelled words, as well as other system sales consultant errors may be contained in the documentation. 111xxx-113xx: 12133 Shante subq tissue 20 sq cm/< 150xxx-152xx: 22365 Skin sub graft trnk/arm/leg
[2020-07-31 08:39] VITALS: BP 155/102; PULSE 71; RESP 18; TEMP 36.6; BMI 49.0
--- NOTE | 2020-07-31 09:41 | PCM.WC.PN ---
History of Present Illness Date of Service: 07/31/20 Chief Complaint: Ulcers of right lower extremity History of Wound: [facility] for evaluation and treatment of bilateral lower leg ulcers. The patient is [facility] treatment of prior lower extremity ulcers. She has a PMH significant for chronic lymphedema, venous insufficiency, atrial fibrillation (on Eliquis), morbid obesity, hypothyroidism. She reported development of her posterior right lower leg ulcer in April. She initially was using Manuka honey to this ulcer, but then started using Vaseline instead. She reported her anterior right lower extremity ulcer developed in August, and she had been applying Vaseline to this daily. Her anterior left lower extremity ulcer developed approximately 1 week prior to her initial January 2020 appt, and she had been applying Vaseline to this daily as well. She notes that approximately 4 to 6 weeks prior, the ulcer on her posterior right lower leg began increasing in soreness. She has lymphedema pumps at home, but had not been using these due to reported pain with use which is related to her ulcers. She does not use compression at home. She reports frequent dangling of her legs while seated at her computer for work. She does not frequently elevate her feet when seated. The patient denied any fever, chills, nausea, vomiting, or diarrhea. Denied any increasing redness or swelling of the affected area. She did note foul-smelling drainage from her right lower extremity. She had not been on any recent antibiotics. She reported having lab work done approximately 6 weeks prior; these records will be requested for review multiple times but never obtained. She had lower extremity arterial studies completed 05/16/16 which showed relatively normal arterial perfusion to ankle level bilaterally. Triphasic waveforms were noted at ankle level bilaterally. Resting ankle-brachial indices were bilaterally normal. The right digital-brachial index is normal, consistent with normal arterial perfusion at distal, small-vessel level in the right lower extremity. The left digital-brachial index is mildly diminished, suggesting the presence of mild, distal, small-vessel arterial occlusive disease in the left lower extremity. Wound cultures collected on 01/03/2020 were positive for 3+ Aeromonas hydrophilia/caviae, 2+ Citrobacter braakii, 1+ Proteus mirabilis, rare Staphylococus aureus, anaerobic cocci, actinomyces odontolyticus, Bacteroides fragilis; beta-lactamase positive. She completed courses of Levaquin and Augmentin. Weeks later, she developed a mass of localized lymphedema of her right medial thigh that was red and warm; this resolved following a 14-day course of Levaquin and Augmentin. Progress of Wound: Toña returns today for follow-up of ulcers of her right lower extremity. Her posterior ulcer has decreased in size within the last 2 weeks. Her anterior RLE ulcer remains unchanged. She tolerated Nushield #2 (advanced skin substitute #8) well to the posterior RLE, however this fell off after 6 days, and she resumed the use of Aquacel Ag to the posterior RLE ulcer. She has been tolerating Santyl to the anterior RLE ulcer. The culture of her posterior RLE ulcer was positive for rare Enterobacter cloacae complex susceptible to levofloxacin, and rare corynebacterium striatum. She denies any increased or purulent/malodorous drainage from her wounds. She denies fever or chills. The massive localized lymphedema of her right medial thigh is again red and warm. This was well controlled on Keflex. Doxycycline was not felt to be of significant benefit. She has been generally noncompliant with the use of lymphedema pumps and lower extremity elevation. 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 She has been advised to take walking breaks when driving and to elevate legs anytime she is seated, but has not followed these instructions. She performs seated work, sitting at a desk without feet elevated. Objective Data Objective Data Vital Signs: Vital Signs Temp Pulse Resp BP 97.8 F 71 18 155/102 H 07/31/20 08:39 07/31/20 08:39 07/31/20 08:39 07/31/20 08:39 Oxygen Delivery Method Room Air Weight: 342 lb Body Mass Index (BMI) 49.0 Lab / Micro Data Micro: Microbiology 07/17/20 09:43 Wound - Leg, Right Gram Stain - Final 07/17/20 09:43 Wound - Leg, Right Wound Culture - Final Enterobacter cloacae complex Corynebacterium striatum 07/17/20 09:43 Wound - Leg, Right Anaerobic Culture - Final No anaerobic bacteria isolated. Assessment & Plan Assessment/Plan (1) Ulcer of right lower extremity with fat layer exposed: Status: Chronic Code(s): L97.912 - Non-pressure chronic ulcer of unspecified part of right lower leg with fat layer exposed (2) Venous ulcer of right leg: Status: Chronic Code(s): I83.019 - Varicose veins of right lower extremity with ulcer of unspecified site; L97.919 - Non-pressure chronic ulcer of unspecified part of right lower leg with unspecified severity (3) Venous insufficiency: Status: Chronic (4) Cellulitis of right lower extremity: Status: Acute Code(s): L03.115 - Cellulitis of right lower limb (5) Lymphedema: Status: Chronic Code(s): I89.0 - Lymphedema, not elsewhere classified (6) Morbid obesity: Status: Chronic Code(s): E66.01 - Morbid (severe) obesity due to excess calories Plan: Debridement performed today in clinic as annotated above. Given the duration of the venous leg ulcers and failure of the ulcers to respond to standard wound care, we applied and were approved for Puraply, Nushield, and Apligraf. The patient had previously completed 6 applications of pure applied to the posterior RLE ulcer. Puraply was then discontinued due to failure of the wound to improve in size and appearance, which I suspect was due to the patient's inability to tolerate thorough debridement and refusal to appropriately utilize compression. With an increase in the use of her lymphedema pumps and multiple approaches to wound debridement, the patient's wound sizes improved and bioburden was reduced, and she is now able to better tolerate debridement of her posterior RLE ulcer. Puraply was again applied for and approved. Of the 10 approved applications, she has had 1 Puraply application , 5/5 Apligraf applications, and 2 Nushield applications. Nushield #3 (advanced skin substitute #9) was applied today to the posterior RLE ulcer. 100% of the product was used. This was covered with a wound veil and secured with Steri-Strips and a VAC dressing. At home wound-care instructions: For posterior RLE ulcer: keep dressing clean and dry. Leave skin substitute in place until next [facility] visit. Cover wound and dressing when showering to avoid moisture to wound/dressing. May change outer dressing layer every 3 to 4 days as needed due to moisture/contamination. For anterior RLE ulcer: Continue Santyl dressing changes daily. Change dressing once daily or more frequently as needed due to contamination. Wash wounds daily with antibacterial soap and water, rinse and dry thoroughly before each dressing change. Continue calmoseptine to the anterior periulcer area for skin irritation/excoriation, so long as it does not interfere with keeping the dressings clean and dry. Compression: As previously discussed, lymphedema pumps should be utilized for 1 hour 3 times per day. If this is not well-tolerated, the patient should continue to use the pumps as long and as frequently as possible, working toward this goal. She has generally been noncompliant with these instructions. Off-loading: The patient was instructed to avoid pressure and friction on the affected areas. Reposition every 2 hours at minimum. Avoid prolonged standing and/or dangling of legs. When seated, feet should be elevated at chest level. Frequent ambulation is encouraged. Diet: Patient encouraged to increase protein intake while taking caution to avoid high carbohydrate and/or sugar intake. Labs/cultures/imaging: Most recent cultures were significant only for rare Enterobacter cloacae complex and rare corynebacterium striatum. Patient will be started on Levaquin 500 mg daily x7 days for treatment of her right medial thigh lymphedema cellulitis. Follow-up: Return to clinic in 1 week for re-evaluation. Return sooner or report to the emergency room should symptoms worsen, or new symptoms arise. Note: [employer]point speech recognition [employer] intelligence officer software was used to create portions of this document. Sound-alike and misspelled words, as well as other [employer] errors may be contained in the documentation. Charges/Coding 111xxx-113xx: 34844 Shante subq tissue 20 sq cm/< 150xxx-152xx: 26712 Skin sub graft trnk/arm/leg Physical Exam Const alert, no apparent distress and healthy appearing General Appearance: cooperative, comfortable and well kempt HEENT Head and Scalp: normocephalic and atraumatic Neck supple and no JVD Resp normal respiratory effort, normal air movement and no use of accessory muscles GI non-distended Palpation: soft Extremity normal capillary refill, no joint enlargement, no calf tenderness and no pedal edema General Extremity: Negative for clubbing or cyanosis Peripheral Pulses: Yes dorsalis pedis pulses present bilateral 2+ Skin Wounds: wounds noted No malodorous Wound Narrative: RLE anterior ulcer with moderate amount of slough and devitalized tissue present. Moderate periulcer excoriation. No periulcer warmth or edema. No purulent/malodorous drainage. No tunneling, undermining, or probing to bone. RLE posterior ulcer with moderate amount of slough and devitalized tissue present. Improved in size. Minimal periulcer excoriation. No periulcer warmth or edema. No purulent/malodorous drainage. No tunneling, undermining, or probing to bone. Neuro moves all extremities Sensorium / Orientation: awake and alert Psych mental status grossly normal, cooperative and affect normal Appearance: grossly normal Debridement Note Debridement Note Post-Debridement Measurements and Additional Note: Post-Debridement Measurements/Treatment WC - Nurse 2 - General Ulcer CM Notes Start: 07/03/20 08:45 Freq: Status: Active Protocol: Activity Type Activity Date Activity User E-Sign Co-Sign Detail Recorded Client Recorded Date Recorded By Document 07/03/20 15:23 PL [id number] 07/03/20 15:27 PL Document 07/10/20 12:42 PL [id number] 07/10/20 12:46 PL Document 07/17/20 13:08 PL [id number] 07/17/20 13:13 PL Edit Result 07/17/20 13:08 PL (1) [id number] 07/17/20 13:16 PL Edit Result 07/17/20 13:08 PL (2) [id number] 07/20/20 06:45 PL (1) #8 RLE Post - Apply Skin Sub - 1st 25 sq cm - Legs => 1 (2) #7 RLE Ant Cluster - Debridement - Subq, 1st 20sq cm No => Yes 07/03/20 07/10/20 07/17/20 15:23 12:42 13:08 Wound Center Nurse 2 #8 RLE Post -Time 09:10 08:41 09:37 -Correct Patient Yes Yes Yes -Correct Side, Site, Position Yes Yes Yes -Correct Procedure Yes Yes Yes -Procedure Performed Yes Yes Yes -Type of Procedure Debridement Debridement Debridement -Clinical Debridement Subcutaneous Subcutaneous Subcutaneous -Tissue Removed Subcutaneous Subcutaneous Subcutaneous -Post Debridement (cm) - Length 5.2 4.0 5.0 -Post Debridement (cm) - Width 3.5 3.5 3.5 -Post Debridement (cm) - Depth 0.1 0.1 0.1 -Total Square (Post) (cm) 18.20 14.00 17.50 -Area of Debridement (cm) - Length 5.2 4.0 5.0 -Area of Debridement (cm) - Width 3.5 3.5 3.5 -Total Square (Area) (cm) 18.20 14.00 17.50 -Tunneling No No No -Undermining/Tunneling No No No -Circular Undermining No No No -Wound/Ulcer Outcome Not Healed Not Healed Not Healed -Ulcer Cleansing Rinsed/ Rinsed/ Rinsed/ Irrigated with Irrigated with Irrigated with Saline Saline Saline -Foul Odor after Cleansing No No No -Bioengineered Tissue Yes Yes Yes -Type of Bioengineered Tissue Apligraf [facility] -Expiration Date 07/14/20 11/01/23 08/18/23 -Product Lot Number [id number] -Percent Used 100 100 100 -Lot number of Saline Used [id number] -Bleeding Controlled with Pressure Pressure Pressure -Treatment Response Procedure Procedure Procedure Tolerated Well Tolerated Well Tolerated Well -Debridement - Subq, 1st 20sq cm No No No -Apply Skin Sub - 1st 25 sq cm - Legs 1 1 1 -[facility] (per sq cm) 44 -[facility] (per sq cm) 12 12 #7 RLE Ant Cluster -Time 09:10 08:41 09:37 -Correct Patient Yes Yes Yes -Correct Side, Site, Position Yes Yes Yes -Correct Procedure Yes Yes Yes -Procedure Performed Yes Yes Yes -Type of Procedure Debridement Debridement Debridement -Clinical Debridement Subcutaneous Subcutaneous Subcutaneous -Tissue Removed Subcutaneous Subcutaneous Subcutaneous -Post Debridement (cm) - Length 1.9 2.2 5.0 -Post Debridement (cm) - Width 1.1 1.1 3.5 -Post Debridement (cm) - Depth 0.1 0.1 0.1 -Total Square (Post) (cm) 2.09 2.42 17.50 -Area of Debridement (cm) - Length 1.9 2.2 5.0 -Area of Debridement (cm) - Width 1.1 1.1 3.5 -Total Square (Area) (cm) 2.09 2.42 17.50 -Tunneling No No No -Undermining/Tunneling No No No -Circular Undermining No No No -Wound/Ulcer Outcome Not Healed Not Healed Not Healed -Ulcer Cleansing Rinsed/ Rinsed/ Rinsed/ Irrigated with Irrigated with Irrigated with Saline Saline Saline -Foul Odor after Cleansing No No No -Bioengineered Tissue No No No -Bleeding Controlled with Pressure -Treatment Response Procedure Tolerated Well -Debridement - Subq, 1st 20sq cm Yes Yes Yes Pain Scale: 0-10 Numeric Is Patient Pain Free? Yes Yes Yes - Nurse 3 - General Ulcer D/C NN Start: 07/03/20 08:45 Freq: Status: Active Protocol: Activity Type Activity Date Activity User E-Sign Co-Sign Detail Recorded Client Recorded Date Recorded By Document 07/03/20 09:50 KR [id number] 07/03/20 09:50 KR Document 07/10/20 09:11 KR [id number] 07/10/20 09:12 KR Document 07/17/20 10:16 [facility] [id number] 07/17/20 10:17 [facility] Document 07/31/20 09:39 KR [id number] 07/31/20 09:39 KR 07/03/20 07/10/20 07/17/20 09:50 09:11 10:16 Wound Care Nurse 3 #8 RLE Post -Ulcer Cleansing Rinsed/ Irrigated with Saline -Primary Dressing Applied C Hydrogel ($) -Other Dressing [facility] -Primary Dressing Covered/Secured with Dry Gauze, Dry Gauze, Secured with Secured with Secured with Tape Tape Tape -Other Covering super absorber drsg #7 RLE Ant Cluster -Ulcer Cleansing Rinsed/ Irrigated with Saline -Foul Odor after Cleansing No -Primary Dressing Applied C Hydrogel ($) Other -Other Dressing hydrogel -Primary Dressing Covered/Secured with Dry Gauze, Dry Gauze, Secured with Secured with Secured with Tape,Other Tape Tape -Other Covering abd Treatment Response Procedure Tolerated Well Pain Scale: 0-10 Numeric Is Patient Pain Free? Yes Yes Yes - Visit Discharge Discharge Condition Stable Stable Stable Ambulatory Status Ambulatory Ambulatory Ambulatory Transportation Private Auto Private Auto Private Auto 07/31/20 09:39 Wound Care Nurse 3 #8 RLE Post -Ulcer Cleansing Rinsed/ Irrigated with Saline -Primary Dressing Applied C Hydrogel ($) -Other Dressing -Primary Dressing Covered/Secured with Dry Gauze, Secured with Tape -Other Covering #7 RLE Ant Cluster -Ulcer Cleansing Rinsed/ Irrigated with Saline -Foul Odor after Cleansing -Primary Dressing Applied -Other Dressing -Primary Dressing Covered/Secured with Dry Gauze, Secured with Tape -Other Covering Treatment Response Pain Scale: 0-10 Numeric Is Patient Pain Free? Yes WC - Visit Discharge Discharge Condition Stable Ambulatory Status Ambulatory Transportation Private Auto Wound debrided: RLE anterior ulcer Laterality: Right Type of Debridement: Excisional debridement Anesthesia Used: 4% Lidocaine Solution and Cetacaine Depth: in the subcutaneous layer Percentage of wound debrided: 100 Instrument Used: 5mm curette Tissue Removed: Slough and devitalized tissue Severity: Fat Layer Exposed Amount of bleeding with debridement: Mild Bleeding Controlled with: Pressure Patient tolerated procedure: Patient did not tolerate procedure well Additional Wound Wound debrided: RLE posterior ulcer Laterality: Right Type of Debridement: Excisional debridement Anesthesia Used: 4% Lidocaine Solution and Cetacaine Depth: in the subcutaneous layer Percentage of wound debrided: 100 Instrument Used: 7mm curette Tissue Removed: Slough and devitalized tissue Severity: Fat Layer Exposed Amount of bleeding with debridement: Mild Bleeding Controlled with: Pressure Patient tolerated procedure: Patient tolerated procedure well
== END 2020-07-31 23:59 ==
LOC: WC 08:30
PROVIDERS: PCP Family Medicine; Referring Provider Family Medicine; Visit Provider Nurse Practitioner Family
DX: I83.018 Varicose veins of right lower extremity with ulcer other part of lower leg (principal); L97.812 Non-pressure chronic ulcer of other part of right lower leg with fat layer exposed; L03.115 Cellulitis of right lower limb; I89.0 Lymphedema, not elsewhere classified; M79.89 Other specified soft tissue disorders; I87.2 Venous insufficiency (chronic) (peripheral); E03.9 Hypothyroidism, unspecified; E66.01 Morbid (severe) obesity due to excess calories; Z79.01 Long term (current) use of anticoagulants; Z91.19 Patient's noncompliance with other medical treatment and regimen
CPT/HCPCS: 11042; 15271; 87070; 87075; 87077; 87186; 87205; Q4101; Q4160

== ENCOUNTER 2020-08-21 08:00 | Outpatient (RCR) | payer MEDICAID, SELFPAY ==
[2020-08-01 00:26] VITALS: BP 155/102; PULSE 71; RESP 18; TEMP 36.6
[2020-08-07 08:17] VITALS: BP 172/105; PULSE 72; TEMP 35.4; BMI 49.0
--- NOTE | 2020-08-07 09:45 | PCM.WC.PN ---
History of Present Illness Date of Service: 08/07/20 Chief Complaint: Ulcers of right lower extremity History of Wound: [facility] for evaluation and treatment of bilateral lower leg ulcers. The patient is [facility] treatment of prior lower extremity ulcers. She has a PMH significant for chronic lymphedema, venous insufficiency, atrial fibrillation (on Eliquis), morbid obesity, hypothyroidism. She reported development of her posterior right lower leg ulcer in April. She initially was using Manuka honey to this ulcer, but then started using Vaseline instead. She reported her anterior right lower extremity ulcer developed in August, and she had been applying Vaseline to this daily. Her anterior left lower extremity ulcer developed approximately 1 week prior to her initial January 2020 appt, and she had been applying Vaseline to this daily as well. She notes that approximately 4 to 6 weeks prior, the ulcer on her posterior right lower leg began increasing in soreness. She has lymphedema pumps at home, but had not been using these due to reported pain with use which is related to her ulcers. She does not use compression at home. She reports frequent dangling of her legs while seated at her computer for work. She does not frequently elevate her feet when seated. The patient denied any fever, chills, nausea, vomiting, or diarrhea. Denied any increasing redness or swelling of the affected area. She did note foul-smelling drainage from her right lower extremity. She had not been on any recent antibiotics. She reported having lab work done approximately 6 weeks prior; these records will be requested for review multiple times but never obtained. She had lower extremity arterial studies completed 05/16/16 which showed relatively normal arterial perfusion to ankle level bilaterally. Triphasic waveforms were noted at ankle level bilaterally. Resting ankle-brachial indices were bilaterally normal. The right digital-brachial index is normal, consistent with normal arterial perfusion at distal, small-vessel level in the right lower extremity. The left digital-brachial index is mildly diminished, suggesting the presence of mild, distal, small-vessel arterial occlusive disease in the left lower extremity. Wound cultures collected on 01/03/2020 were positive for 3+ Aeromonas hydrophilia/caviae, 2+ Citrobacter braakii, 1+ Proteus mirabilis, rare Staphylococus aureus, anaerobic cocci, actinomyces odontolyticus, Bacteroides fragilis; beta-lactamase positive. She completed courses of Levaquin and Augmentin. Weeks later, she developed a mass of localized lymphedema of her right medial thigh that was red and warm; this resolved following a 14-day course of Levaquin and Augmentin. Progress of Wound: Toña returns today for follow-up of ulcers of her right lower extremity. Her posterior ulcer is unchanged in size in the past week. She tolerated Nushield #3 (advanced skin substitute #9) well to the posterior RLE and was able to keep this in place for the entire week. She reports mild to moderate drainage. Her anterior RLE ulcer has increased in length but decreased in width. She has been tolerating Santyl to the anterior RLE ulcer. She reports no notable drainage from the anterior RLE ulcer. The culture of her posterior RLE ulcer was positive for rare Enterobacter cloacae complex susceptible to levofloxacin, and rare corynebacterium striatum. She denies any increased or purulent/malodorous drainage from her wounds. She denies fever or chills. The massive localized lymphedema of her right medial thigh is again red and warm. This was well controlled on Keflex. Doxycycline was not felt to be of significant benefit. She was started on Levaquin 500mg daily on 07/31/20 and feels this has been most beneficial. She still has some erythema and warmth of the right medial thigh today. She has been generally noncompliant with the use of lymphedema pumps and lower extremity elevation. 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 She has been advised to take walking breaks when driving and to elevate legs anytime she is seated, but has not followed these instructions. She performs seated work, sitting at a desk without feet elevated. She reports she previously was given thigh-high CircAids, but could not wear these during the day d/t being unable to bend the leg. She is willing to try knee-high CircAids. Objective Data Objective Data Vital Signs: Vital Signs Temp Pulse Resp BP 95.7 F L 72 18 172/105 H 08/07/20 08:17 08/07/20 08:17 08/01/20 00:26 08/07/20 08:17 Weight: 342 lb Body Mass Index (BMI) 49.0 Assessment & Plan Assessment/Plan (1) Ulcer of right lower extremity with fat layer exposed: (2) Venous ulcer of right leg: (3) Venous insufficiency: (4) Cellulitis of right lower extremity: (5) Lymphedema: (6) Morbid obesity: PLAN: Debridement performed today in clinic as annotated above. Given the duration of the venous leg ulcers and failure of the ulcers to respond to standard wound care, we applied and were approved for Puraply, Nushield, and Apligraf. The patient had previously completed 6 applications of Puraply to the posterior RLE ulcer. Puraply was then discontinued due to failure of the wound to improve in size and appearance, which I suspect was due to the patient's inability to tolerate thorough debridement and refusal to appropriately utilize compression. With an increase in the use of her lymphedema pumps and multiple approaches to wound debridement, the patient's wound sizes improved and bioburden was reduced, and she is now able to better tolerate debridement of her posterior RLE ulcer. Puraply was again applied for and approved. Of the 10 approved applications, she has had 1 Puraply application , 5/5 Apligraf applications, and 3 Nushield applications. Nushield #4 (advanced skin substitute #10) was applied today to the posterior RLE ulcer. 100% of the product was used. This was covered with a wound veil and secured with Steri-Strips and a VAC dressing. At home wound-care instructions: For posterior RLE ulcer: keep dressing clean and dry. Leave skin substitute in place until next [facility] visit. Cover wound and dressing when showering to avoid moisture to wound/dressing. May change outer dressing layer every 3 to 4 days as needed due to moisture/contamination. For anterior RLE ulcer: Perform Devika dressing changes every 2 days. Wash wounds with dressing changes, using antibacterial soap and water, rinse and dry thoroughly before each dressing change. Continue calmoseptine to the anterior periulcer area for skin irritation/excoriation, so long as it does not interfere with keeping the dressings clean and dry. Compression: As previously discussed, lymphedema pumps should be utilized for 1 hour 3 times per day. If this is not well-tolerated, the patient should continue to use the pumps as long and as frequently as possible, working toward this goal. She has generally been noncompliant with these instructions. We will order CircAid's for the bilateral lower extremities. Off-loading: The patient was instructed to avoid pressure and friction on the affected areas. Reposition every 2 hours at minimum. Avoid prolonged standing and/or dangling of legs. When seated, feet should be elevated at chest level. Frequent ambulation is encouraged. Diet: Patient encouraged to increase protein intake while taking caution to avoid high carbohydrate and/or sugar intake. Labs/cultures/imaging: Most recent cultures were significant only for rare Enterobacter cloacae complex and rare corynebacterium striatum. Another course of Levaquin 500 mg daily x7 days for treatment of her right medial thigh lymphedema cellulitis will be given. Patient feels this has been most beneficial. Follow-up: Return to clinic in 1 week for re-evaluation. Return sooner or report to the emergency room should symptoms worsen, or new symptoms arise. Note: IP Ghoster speech recognition flight test engineer software was used to create portions of this document. Sound-alike and misspelled words, as well as other flight test engineer errors may be contained in the documentation. Charges/Coding Procedures Integumentary 111xxx-113xx: 63806 Shante subq tissue 20 sq cm/< 150xxx-152xx: 04124 Skin sub graft trnk/arm/leg Physical Exam Const alert, no apparent distress and healthy appearing General Appearance: cooperative, comfortable and well kempt HEENT Head and Scalp: normocephalic and atraumatic Neck supple and no JVD Resp normal respiratory effort, normal air movement and no use of accessory muscles GI non-distended Palpation: soft Extremity normal capillary refill, no joint enlargement, no calf tenderness and no pedal edema General Extremity: Negative for clubbing or cyanosis Peripheral Pulses: Yes dorsalis pedis pulses present bilateral 2+ Skin Rashes: rashes noted Right medial thigh warm and erythematous Wounds: wounds noted No malodorous Wound Narrative: RLE anterior ulcer with moderate amount of slough and devitalized tissue present. Periulcer excoriation has greatly improved. No periulcer warmth or edema. No purulent/malodorous drainage. No tunneling, undermining, or probing to bone. RLE posterior ulcer with small amount of slough and devitalized tissue present. No periulcer excoriation. No periulcer warmth or edema. No purulent/malodorous drainage. No tunneling, undermining, or probing to bone. Neuro moves all extremities Sensorium / Orientation: awake and alert Psych mental status grossly normal, cooperative and affect normal Appearance: grossly normal Debridement Note Debridement Note Post-Debridement Measurements and Additional Note: Post-Debridement Measurements/Treatment - Nurse 1 - General Ulcer Assessment Start: 08/07/20 08:17 Freq: Status: Active Protocol: SAL Activity Type Activity Date Activity User E-Sign Co-Sign Detail Recorded Client Recorded Date Recorded By Document 08/07/20 08:17 RAMON [id number] 08/07/20 08:21 KR 08/07/20 08:17 - Today's Visit Information Type of service 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 Any new allergies or adverse reactions No Had a fall/change in ADL's that may No increase risk of falls Signs or symptoms of abuse and/or No neglect since last visit Have you been in the hospital since your No last visit? Has dressing in place as prescribed Yes Has compression in place as prescribed Yes Has offloadiing in place as prescribed N/A Experienced any changes in pain level or No management Left Footwear Regular Shoe Right Footwear Regular Shoe Pain Scale: 0-10 Numeric Is Patient Pain Free? Yes - Nurse 1 - General Ulcer Measurement Start: 08/07/20 08:17 Freq: Status: Active Protocol: Activity Type Activity Date Activity User E-Sign Co-Sign Detail Recorded Client Recorded Date Recorded By Document 08/07/20 08:17 RAMON [id number] 08/07/20 08:21 KR 08/07/20 08:17 W[facility] Center Nurse 1 #8 RLE Post -Current Size (cm) - Length 4 -Current Size (cm) - Width 3.5 -Current Size (cm) - Depth 0.1 -Total Square Cm 14.0 -Exudate Amt Large -Exudate Type Yellow/Green -Wound Margin Distinct, Outline Attached -Granulation Amt Small (1-33%) -Granulation Quality Red -Necrosis Amt Medium (34-66%) -Necrotic Tissue Type Adherent Slough -Texture (Irene-wound Skin Appearance) Assessed, Scarring -Moisture (Irene-wound Skin Appearance) Assessed -Color (Irene-wound Skin Appearance) No Abnormality, Assessed -Temperature (Irene-wound Skin No Abnormality Appearance) (Pt Warm) -Tenderness on Palpation (Irene-wound No Skin Appearance) -Ulcer Cleansing Rinsed/ Irrigated with Saline -Foul Odor after Cleansing No -Anesthetic Used 4% Lidocaine Solution #7 RLE Ant Cluster -Current Size (cm) - Length 2.3 -Current Size (cm) - Width 1.5 -Current Size (cm) - Depth 0.1 -Total Square Cm 3.45 -Exudate Amt Medium -Exudate Type Serosanguineous -Wound Margin Distinct, Outline Attached -Granulation Amt Medium (34-66%) -Granulation Quality Red -Necrosis Amt Medium (34-66%) -Necrotic Tissue Type Adherent Slough -Texture (Irene-wound Skin Appearance) Assessed, Scarring -Moisture (Irene-wound Skin Appearance) No Abnormality, Assessed -Color (Irene-wound Skin Appearance) No Abnormality, Assessed -Temperature (Irene-wound Skin No Abnormality Appearance) (Pt Warm) -Tenderness on Palpation (Irene-wound No Skin Appearance) -Ulcer Cleansing Rinsed/ Irrigated with Saline -Foul Odor after Cleansing No -Anesthetic Used 4% Lidocaine Solution WC - Nurse 3 - General Ulcer D/C NN Start: 08/07/20 08:17 Freq: Status: Active Protocol: Activity Type Activity Date Activity User E-Sign Co-Sign Detail Recorded Client Recorded Date Recorded By Document 08/07/20 09:06 ASHLY [id number] 08/07/20 09:07 ASHLY 08/07/20 09:06 Wound Care Nurse 3 #8 RLE Post -Ulcer Cleansing Rinsed/ Irrigated with Saline -Primary Dressing Covered/Secured with Dry Gauze & Roll Gauze, Secured with Tape #7 RLE Ant Cluster -Ulcer Cleansing Rinsed/ Irrigated with Saline -Foul Odor after Cleansing No -Primary Dressing Applied Promogran Devika Matter -Primary Dressing Covered/Secured with Dry Gauze, Secured with Tape -Promogran Devika Matter 1 Pain Scale: 0-10 Numeric Is Patient Pain Free? Yes WC - Visit Discharge Discharge Condition Stable Ambulatory Status Ambulatory Transportation Private Auto Medication Reconcilliation completed & Yes provided to patient/care provider Clinical Summary of Care Provided Yes Wound debrided: RLE anterior ulcer Laterality: Right Type of Debridement: Excisional debridement Anesthesia Used: 4% Lidocaine Solution and Cetacaine Depth: in the subcutaneous layer Percentage of wound debrided: 100 Instrument Used: 5mm curette Tissue Removed: Slough and devitalized tissue Severity: Fat Layer Exposed Amount of bleeding with debridement: Mild Bleeding Controlled with: Pressure Patient tolerated procedure: Patient tolerated procedure well Additional Wound Wound debrided: RLE posterior ulcer Laterality: Right Type of Debridement: Excisional debridement Anesthesia Used: 4% Lidocaine Solution and Cetacaine Depth: in the subcutaneous layer Percentage of wound debrided: 100 Instrument Used: 7mm curette Tissue Removed: Slough and devitalized tissue Severity: Fat Layer Exposed Amount of bleeding with debridement: Mild Bleeding Controlled with: Pressure Patient tolerated procedure: Patient tolerated procedure well
[2020-08-14 08:08] VITALS: BP 147/76; PULSE 71; RESP 16; TEMP 37.1; BMI 49.0
--- NOTE | 2020-08-14 08:57 | PN.PCM_ITS ---
History of Present Illness Date of Service: 08/14/20 Chief Complaint: Ulcers of right lower extremity History of Wound: [facility] for evaluation and treatment of bilateral lower leg ulcers. The patient is [facility] treatment of prior lower extremity ulcers. She has a PMH significant for chronic lymphedema, venous insufficiency, atrial fibrillation (on Eliquis), morbid obesity, hypothyroidism. She reported development of her posterior right lower leg ulcer in April. She initially was using Manuka honey to this ulcer, but then started using Vaseline instead. She reported her anterior right lower extremity ulcer developed in August, and she had been applying Vaseline to this daily. Her anterior left lower extremity ulcer developed approximately 1 week prior to her initial January 2020 appt, and she had been applying Vaseline to this daily as well. She notes that approximately 4 to 6 weeks prior, the ulcer on her posterior right lower leg began increasing in soreness. She has lymphedema pumps at home, but had not been using these due to reported pain with use which is related to her ulcers. She does not use compression at home. She reports frequent dangling of her legs while seated at her computer for work. She does not frequently elevate her feet when seated. The patient denied any fever, chills, nausea, vomiting, or diarrhea. Denied any increasing redness or swelling of the affected area. She did note foul-smelling drainage from her right lower extremity. She had not been on any recent antibiotics. She reported having lab work done approximately 6 weeks prior; these records will be requested for review multiple times but never obtained. She had lower extremity arterial studies completed 05/16/16 which showed relatively normal arterial perfusion to ankle level bilaterally. Triphasic waveforms were noted at ankle level bilaterally. Resting ankle-brachial indices were bilaterally normal. The right digital-brachial index is normal, consistent with normal arterial perfusion at distal, small-vessel level in the right lower extremity. The left digital- brachial index is mildly diminished, suggesting the presence of mild, distal, small-vessel arterial occlusive disease in the left lower extremity. Wound cultures collected on 01/03/2020 were positive for 3+ Aeromonas hydrophilia/caviae, 2+ Citrobacter braakii, 1+ Proteus mirabilis, rare Staphylococus aureus, anaerobic cocci, actinomyces odontolyticus, Bacteroides fragilis; beta-lactamase positive. She completed courses of Levaquin and Augmentin. Weeks later, she developed a mass of localized lymphedema of her right medial thigh that was red and warm; this resolved following a 14-day course of Levaquin and Augmentin. Progress of Wound: Toña returns today for follow-up of ulcers of her right lower extremity. Nushield is still intact on the patient's posterior RLE ulcer. Outer dressing will be reinforced today. Her anterior RLE ulcer has increased in length. She has been tolerating Devika to the anterior RLE ulcer. She reports no notable drainage from the anterior RLE ulcer. She states the ulcer is somewhat dry. The culture of her posterior RLE ulcer was positive for rare Enterobacter cloacae complex susceptible to levofloxacin, and rare corynebacterium striatum. She denies any increased or purulent/malodorous drainage from her wounds. She denies fever or chills. The massive localized lymphedema of her right medial thigh has decreased in redness and warmth with the use of Levaquin. Keflex was also of benefit in the past. Doxycycline was not felt to be of significant benefit. She still has some mild erythema of the right medial thigh today. She has been generally noncompliant with the use of lymphedema pumps and lower extremity elevation. 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 She has been advised to take walking breaks when driving and to elevate legs anytime she is seated, but has not followed these instructions. She performs seated work, sitting at a desk without feet elevated. She reports she previously was given thigh-high CircAids, but could not wear these during the day d/t being unable to bend the leg. Knee-high CircAid's were ordered, and the patient was contacted by [employer] but has not yet returned their call. Objective Data Objective Data Vital Signs: Vital Signs Temp Pulse Resp BP 98.7 F 71 16 147/76 H 08/14/20 08:08 08/14/20 08:08 08/14/20 08:08 08/14/20 08:08 Weight: 342 lb Body Mass Index (BMI) 49.0 Assessment & Plan Assessment/Plan (1) Ulcer of right lower extremity with fat layer exposed: (2) Venous ulcer of right leg: (3) Venous insufficiency: (4) Cellulitis of right lower extremity: (5) Lymphedema: (6) Morbid obesity: PLAN: Debridement performed today in clinic as annotated above. Given the duration of the venous leg ulcers and failure of the ulcers to respond to standard wound care, we applied and were approved for Puraply, Nushield, and Apligraf. The patient had previously completed 6 applications of Puraply to the posterior RLE ulcer. Puraply was then discontinued due to failure of the wound to improve in size and appearance, which I suspect was due to the patient's inability to tolerate thorough debridement and refusal to appropriately utilize compression. With an increase in the use of her lymphedema pumps and multiple approaches to wound debridement, the patient's wound sizes improved and bioburden was reduced, and she is now able to better tolerate debridement of her posterior RLE ulcer. Advanced skin substitutes were again applied for and approved. Of the 10 approved applications, she has had 1 Puraply application, 5/5 Apligraf applications, and 4 Nushield applications. Nushield #4 (advanced skin substitute #10) was applied last week to the posterior RLE ulcer and remains intact. The outer dressing was removed. The periulcer area was cleansed with skin prep and a new wound veil and outer dressing was placed. Devika was applied to the anterior RLE ulcer. At home wound-care instructions: For posterior RLE ulcer: keep dressing clean and dry. Leave skin substitute in place until next Wound Center visit. Cover wound and dressing when showering to avoid moisture to wound/dressing. May change outer dressing layer every 3 to 4 days as needed due to moisture/contamination. For anterior RLE ulcer: Perform Devika dressing changes every 2 days. Wash wounds with dressing changes, using antibacterial soap and water, rinse and dry thoroughly before each dressing change. Continue calmoseptine to the anterior periulcer area for skin irritation/excoriation, so long as it does not interfere with keeping the dressings clean and dry. Compression: As previously discussed, lymphedema pumps should be utilized for 1 hour 3 times per day. If this is not well-tolerated, the patient should contin ue to use the pumps as long and as frequently as possible, working toward this goal. She has generally been noncompliant with these instructions. CircAid's were ordered for the bilateral lower extremities, and the patient was instructed to return the call to [facility] to complete ordering. Off-loading: The patient was instructed to avoid pressure and friction on the affected areas. Reposition every 2 hours at minimum. Avoid prolonged standing and/or dangling of legs. When seated, feet should be elevated at chest level. Frequent ambulation is encouraged. Diet: Patient encouraged to increase protein intake while taking caution to avoid high carbohydrate and/or sugar intake. Labs/cultures/imaging: Most recent cultures were significant only for rare Enterobacter cloacae complex and rare corynebacterium striatum. Another course of Levaquin 500 mg daily x7 days for treatment of her right medial thigh lymphedema cellulitis will be given. Patient feels this has been most beneficial. Follow-up: Return to clinic in 1 week for re-evaluation. Return sooner or report to the emergency room should symptoms worsen, or new symptoms arise. Note: [employer] speech recognition customer acquisition specialist software was used to create portions of this document. Sound-alike and misspelled words, as well as other customer acquisition specialist errors may be contained in the documentation. Charges/Coding Procedures Integumentary [id number]: [id number] Shante subq tissue 20 sq cm/< Physical Exam Const alert, no apparent distress and healthy appearing General Appearance: cooperative, comfortable and well kempt HEENT Head and Scalp: normocephalic and atraumatic Neck supple and no JVD Resp normal respiratory effort, normal air movement and no use of accessory muscles GI non-distended Extremity normal capillary refill, no joint enlargement and no calf tenderness General Extremity: edema bilateral lower extremity Details: moderate; Negative for clubbing or cyanosis Peripheral Pulses: Yes dorsalis pedis pulses present bilateral 2+ Skin Rashes: rashes noted Wounds: wounds noted No malodorous Wound Narrative: RLE anterior ulcer with moderate amount of slough and devitalized tissue present. Periulcer excoriation has greatly improved. No periulcer warmth or edema. No purulent/malodorous drainage. No tunneling, undermining, or probing to bone. RLE posterior ulcer with small amount of slough and devitalized tissue present. Nushield intact. No periulcer excoriation or erythema. No periulcer warmth or edema. No purulent/malodorous drainage. No tunneling, undermining, or probing to bone. Neuro moves all extremities Sensorium / Orientation: awake and alert Psych mental status grossly normal, cooperative and affect normal Appearance: grossly normal Debridement Note Debridement Note Post-Debridement Measurements and Additional Note: Post-Debridement Aditi surements/Treatment WC - Nurse 1 - General Ulcer Assessment Start: 08/07/20 08:17 Freq: Status: Active Protocol: SAL Activity Type Activity Date Activity User E-Sign Co-Sign Detail Recorded Client Recorded Date Recorded By Document 08/07/20 08:17 KR [id number] 08/07/20 08:21 KR Document 08/14/20 08:08 JF [id number] 08/14/20 08:13 JF 08/07/20 08/14/20 08:17 08:08 WC - Today's Visit Information Type of service Follow-up Visit Follow-up Visit (Physician/COURT MANAGER (Physician/COURT MANAGER ) ) Arrival Mode Ambulatory Ambulatory Patient Identification Verified (Name & Yes Yes ) Patient Requires Transmission-Based No Precautions Height and Weight Body Mass Index (BMI) 49.0 49.0 BMI Classification Obese Obese Vital Signs Temperature (97.8 F-99.1 F) 95.7 F L 98.7 F Temperature Source Temporal Temporal Pulse Rate (60-100) 72 71 Pulse Location Monitor Monitor Respiratory Rate (12-18) 16 Respiratory rate source Observation Blood Pressure (90/60-120/80) 172/105 H 147/76 H Blood Pressure Mean (mm Hg) 127 99 Source Monitor Monitor Position Semi-Fowlers Sitting Blood Pressure Location Left Arm Left Forearm History Since Last Visit- (Skip if this is Patient's initial visit) Have you changed medications since your No No last visit? Any new allergies or adverse reactions No No Had a fall/change in ADL's that may No increase risk of falls Signs or symptoms of abuse and/or No No neglect since last visit Have you been in the hospital since your No No last visit? Has dressing in place as prescribed Yes Yes Has compression in place as prescribed Yes No Has offloadiing in place as prescribed N/A N/A Experienced any changes in pain level or No No management Left Footwear Regular Shoe Regular Shoe Right Footwear Regular Shoe Regular Shoe Pain Scale: 0-10 Numeric Is Patient Pain Free? Yes No CHRISTIANNE Suazo Nurse 1 - General Ulcer Measurement Start: 08/07/20 08:17 Freq: Status: Active Protocol: Activity Type Activity Date Activity User E-Sign Co-Sign Detail Recorded Client Recorded Date Recorded By Document 08/07/20 08:17 KR [id number] 08/07/20 08:21 KR Document 08/14/20 08:08 JF [id number] 08/14/20 08:13 JF 08/07/20 08/14/20 08:17 08:08 Wound Center Nurse 1 #8 RLE Post -Combined with other wound No -Current Size (cm) - Length 4 4.0 -Current Size (cm) - Width 3.5 3.2 -Current Size (cm) - Depth 0.1 0.1 -Total Square Cm 14.0 12.80 -Photo Taken No -Epithelialization Small 1-33% -Tunneling No -Undermining/Tunneling No -Circular Undermining No -Exudate Amt Large Medium -Exudate Type Yellow/Green Serosanguineous -Wound Margin Distinct, Flat & Intact Outline Attached -Granulation Amt Small (1-33%) Medium (34-66%) -Granulation Quality Red Kerr -Slough/Fibrin Yes -Necrosis Amt Medium (34-66%) Medium (34-66%) -Necrotic Tissue Type Adherent Slough Adherent Slough -Structure Exposed None/Limited to Skin Breakdown -Texture (Irene-wound Skin Appearance) Assessed, Assessed, Scarring Localized Edema -Moisture (Irene-wound Skin Appearance) Assessed Assessed -Color (Irene-wound Skin Appearance) No Abnormality, Assessed Assessed -Temperature (Irene-wound Skin No Abnormality No Abnormality Appearance) (Pt Warm) (Pt Warm) -Tenderness on Palpation (Irene-wound No No Skin Appearance) -Ulcer Cleansing Rinsed/ Irrigated with Saline -Foul Odor after Cleansing No No -Anesthetic Used 4% Lidocaine Solution #7 RLE Ant Cluster -Combined with other wound No -Current Size (cm) - Length 2.3 2.6 -Current Size (cm) - Width 1.5 1.4 -Current Size (cm) - Depth 0.1 0.1 -Total Square Cm 3.45 3.64 -Photo Taken No -Epithelialization Small 1-33% -Tunneling No -Exudate Amt Medium Medium -Exudate Type Serosanguineous Serosanguineous -Wound Margin Distinct, Flat & Intact Outline Attached -Granulation Amt Medium (34-66%) Small (1-33%) -Granulation Quality Red Kerr -Slough/Fibrin Yes -Necrosis Amt Medium (34-66%) Large (67-100%) -Necrotic Tissue Type Adherent Slough Adherent Slough -Structure Exposed N/A -Texture (Irene-wound Skin Appearance) Assessed, Assessed, Scarring Localized Edema -Moisture (Irene-wound Skin Appearance) No Abnormality, Assessed,Dry/ Assessed Scaly -Color (Irene-wound Skin Appearance) No Abnormality, Assessed Assessed -Temperature (Irene-wound Skin No Abnormality No Abnormality Appearance) (Pt Warm) (Pt Warm) -Tenderness on Palpation (Irene-wound No No Skin Appearance) -Ulcer Cleansing Rinsed/ Rinsed/ Irrigated with Irrigated with Saline Saline -Foul Odor after Cleansing No No -Anesthetic Used 4% Lidocaine Solution Lower Limb Edema Present Yes Right Calf (cm) 72 Right Ankle (cm) 31.5 WC - Nurse 2 - General Ulcer CM Notes Start: 08/07/20 08:17 Freq: Status: Active Protocol: Activity Type Activity Date Activity User E-Sign Co-Sign Detail Recorded Client Recorded Date Recorded By Document 08/07/20 14:22 PL [id number] 08/07/20 14:26 PL Document 08/14/20 08:26 [id number] 08/14/20 08:29 JF 08/07/20 08/14/20 14:22 08:26 Wound Center Nurse 2 #8 RLE Post -Time 08:31 -Correct Patient Yes No -Correct Side, Site, Position Yes No -Correct Procedure Yes No -Procedure Performed Yes No -Type of Procedure Debridement -Clinical Debridement Subcutaneous -Tissue Removed Subcutaneous -Post Debridement (cm) - Length 4.5 -Post Debridement (cm) - Width 3.5 -Post Debridement (cm) - Depth 0.1 -Total Square (Post) (cm) 15.75 -Area of Debridement (cm) - Length 4.5 -Area of Debridement (cm) - Width 3.5 -Total Square (Area) (cm) 15.75 -Tunneling No -Undermining/Tunneling No -Circular Undermining No -Wound/Ulcer Outcome Not Healed Not Healed -Ulcer Cleansing Rinsed/ Irrigated with Saline -Foul Odor after Cleansing No -Bioengineered Tissue Yes -Type of Bioengineered Tissue [facility] -Expiration Date 03/28/24 -Product Lot Number [id number] -Percent Used 100 -Lot number of Saline Used [id number] -Bleeding Controlled with Pressure -Treatment Response Procedure Tolerated Well -Debridement - Subq, 1st 20sq cm No -Apply Skin Sub - 1st 25 sq cm - Legs 1 -NuShield (per sq cm) 12 #7 RLE Ant Cluster -Time 08:31 08:27 -Correct Patient Yes Yes -Correct Side, Site, Position Yes Yes -Correct Procedure Yes Yes -Procedure Performed Yes Yes -Type of Procedure Debridement Debridement -Clinical Debridement Subcutaneous Subcutaneous -Tissue Removed Subcutaneous Subcutaneous -Post Debridement (cm) - Length 2.5 2.7 -Post Debridement (cm) - Width 1.5 1.5 -Post Debridement (cm) - Depth 0.1 0.1 -Total Square (Post) (cm) 3.75 4.05 -Area of Debridement (cm) - Length 2.5 2.7 -Area of Debridement (cm) - Width 1.5 1.5 -Total Square (Area) (cm) 3.75 4.05 -Tunneling No No -Undermining/Tunneling No No -Circular Undermining No No -Wound/Ulcer Outcome Not Healed Not Healed -Ulcer Cleansing Rinsed/ Rinsed/ Irrigated with Irrigated with Saline Saline -Foul Odor after Cleansing No No -Bioengineered Tissue No No -Bleeding Controlled with Pressure Pressure -Offloading No -Treatment Response Procedure Procedure Tolerated Well Tolerated Well -Debridement - Subq, 1st 20sq cm Yes Yes Pain Scale: 0-10 Numeric Is Patient Pain Free? Yes Yes - Nurse 3 - General Ulcer D/C NN Start: 08/07/20 08:17 Freq: Status: Active Protocol: Activity Type Activity Date Activity User E-Sign Co-Sign Detail Recorded Client Recorded Date Recorded By Document 08/07/20 09:06 ASHLY [id number] 08/07/20 09:07 JF Document 08/14/20 08:41 KR [id number] 08/14/20 08:41 KR 08/07/20 08/14/20 09:06 08:41 Wound Care Nurse 3 #8 RLE Post -Ulcer Cleansing Rinsed/ Irrigated with Saline -Primary Dressing Covered/Secured with Dry Gauze & Roll Gauze, Secured with Tape #7 RLE Ant Cluster -Ulcer Cleansing Rinsed/ Rinsed/ Irrigated with Irrigated with Saline Saline -Foul Odor after Cleansing No -Primary Dressing Applied Promogran Promogran Devika Matter Devika Matter -Primary Dressing Covered/Secured with Dry Gauze, Dry Gauze, Secured with Secured with Tape Tape -Promogran Devika Matter 1 1 Pain Scale: 0-10 Numeric Is Patient Pain Free? Yes Yes WC - Visit Discharge Discharge Condition Stable Stable Ambulatory Status Ambulatory Ambulatory Transportation Private Auto Private Auto Medication Reconcilliation completed & Yes provided to patient/care provider Clinical Summary of Care Provided Yes Wound debrided: RLE anterior ulcer Laterality: Right Type of Debridement: Excisional debridement Anesthesia Used: 4% Lidocaine Solution and Cetacaine Depth: in the subcutaneous layer Percentage of wound debrided: 100 Instrument Used: 7mm curette Tissue Removed: Slough and devitalized tissue Severity: Fat Layer Exposed Amount of bleeding with debridement: Moderate Bleeding Controlled with: Compression and gauze Patient tolerated procedure: Patient did not tolerate procedure well
[2020-08-21 08:04] VITALS: BP 155/99; PULSE 89; RESP 18; TEMP 36.6; BMI 49.0
--- NOTE | 2020-08-21 09:57 | PN.PCM_ITS ---
History of Present Illness Date of Service: 08/21/20 Chief Complaint: Ulcers of right lower extremity History of Wound: [facility]th [facility] for evaluation and treatment of bilateral lower leg ulcers. The patient is [facility] treatment of prior lower extremity ulcers. She has a PMH significant for chronic lymphedema, venous insufficiency, atrial fibrillation (on Eliquis), morbid obesity, hypothyroidism. She reported development of her posterior right lower leg ulcer in April. She initially was using Manuka honey to this ulcer, but then started using Vaseline instead. She reported her anterior right lower extremity ulcer developed in August, and she had been applying Vaseline to this daily. Her anterior left lower extremity ulcer developed approximately 1 week prior to her initial January 2020 appt, and she had been applying Vaseline to this daily as well. She notes that approximately 4 to 6 weeks prior, the ulcer on her posterior right lower leg began increasing in soreness. She has lymphedema pumps at home, but had not been using these due to reported pain with use which is related to her ulcers. She does not use compression at home. She reports frequent dangling of her legs while seated at her computer for work. She does not frequently elevate her feet when seated. The patient denied any fever, chills, nausea, vomiting, or diarrhea. Denied any increasing redness or swelling of the affected area. She did note foul-smelling drainage from her right lower extremity. She had not been on any recent antibiotics. She reported having lab work done approximately 6 weeks prior; these records will be requested for review multiple times but never obtained. She had lower extremity arterial studies completed 05/16/16 which showed relatively normal arterial perfusion to ankle level bilaterally. Triphasic waveforms were noted at ankle level bilaterally. Resting ankle-brachial indices were bilaterally normal. The right digital-brachial index is normal, consistent with normal arterial perfusion at distal, small-vessel level in the right lower extremity. The left digital- brachial index is mildly diminished, suggesting the presence of mild, distal, small-vessel arterial occlusive disease in the left lower extremity. Wound cultures collected on 01/03/2020 were positive for 3+ Aeromonas hydrophilia/caviae, 2+ Citrobacter braakii, 1+ Proteus mirabilis, rare Staphylococus aureus, anaerobic cocci, actinomyces odontolyticus, Bacteroides fragilis; beta-lactamase positive. She completed courses of Levaquin and Augmentin. Weeks later, she developed a mass of localized lymphedema of her right medial thigh that was red and warm; this resolved following a 14-day course of Levaquin and Augmentin. Progress of Wound: Toña returns today for follow-up of ulcers of her right lower extremity. Her Nushield came off on Monday, and she has been using Aquacel Ag to the posterior RLE ulcer since that time. There is no change in ulcer size today. Her anterior RLE ulcer has decreased slightly in length. She has been tolerating Devika to the anterior RLE ulcer. She reports no notable drainage from the anterior RLE ulcer. The ulcer appears less dry with the use of Devika. The culture of her posterior RLE ulcer on 07/17/2020 was positive for rare Enterobacter cloacae complex susceptible to levofloxacin, and rare corynebacterium striatum. She denies any increased or purulent/malodorous drainage from her wounds. She denies fever or chills. The massive localized lymphedema of her right medial thigh has decreased in redness and warmth with the use of Levaquin. Keflex was also of benefit in the past. Doxycycline was not felt to be of significant benefit. She still has some mild erythema of the right medial thigh today. She has been generally noncompliant with the use of lymphedema pumps and lower extremity elevation. 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 She has been advised to take walking breaks when driving and to elevate legs anytime she is seated, but has not followed these instructions. She performs seated work, sitting at a desk without feet elevated. She reports she previously was given thigh-high CircAids, but could not wear these during the day d/t being unable to bend the leg. Knee-high CircAid's were ordered, however the patient reports that they were not available in her size. She was told that [facility] would contact us to see if an alternate brand could be substituted. We have not yet received contact from [facility]. Objective Data Objective Data Vital Signs: Vital Signs Temp Pulse Resp BP 97.9 F 89 18 155/99 H 08/21/20 08:04 08/21/20 08:04 08/21/20 08:04 08/21/20 08:04 Oxygen Delivery Method Room Air Weight: 342 lb Body Mass Index (BMI) 49.0 Charges/Coding Procedures Integumentary 111xxx-113xx: [id number] Shante subq tissue 20 sq cm/< Physical Exam Const alert, no apparent distress and healthy appearing General Appearance: cooperative, comfortable and well kempt Nutritional Appearance: obese HEENT Head and Scalp: normocephalic and atraumatic Neck supple and no JVD Lymph Lymphatic: lymphedema moderate Resp normal respiratory effort, normal air movement and no use of accessory muscles GI non-distended Extremity normal capillary refill, no joint enlargement and no calf tenderness General Extremity: edema bilateral lower extremity Details: moderate; Negative for clubbing or cyanosis Peripheral Pulses: Yes dorsalis pedis pulses present bilateral 2+ Skin Rashes: rashes noted Wounds: wounds noted No malodorous Wound Narrative: RLE anterior ulcer with moderate amount of slough and devitalized tissue present. Periulcer excoriation has greatly improved. No periulcer warmth or edema. No purulent/malodorous drainage. No tunneling, undermining, or probing to bone. RLE posterior ulcer with small to moderate amount of slough and devitalized tissue present. Good granulation tissue present. No periulcer excoriation or erythema. No periulcer warmth or edema. No purulent/malodorous drainage. No tunneling, undermining, or probing to bone. Neuro moves all extremities Sensorium / Orientation: awake and alert Psych mental status grossly normal, cooperative and affect normal Appearance: grossly normal Debridement Note Debridement Note Post-Debridement Measurements and Additional Note: Post-Debridement Measurements/Treatment CHRISTIANNE - Nurse 1 - General Ulcer Assessment Start: 08/07/20 08:17 Freq: Status: Active Protocol: SAL Activity Type Activity Date Activity User E-Sign Co-Sign Detail Recorded Client Recorded Date Recorded By Document 08/07/20 08:17 KR [id number] 08/07/20 08:21 KR Document 08/14/20 08:08 ASHLY [id number] 08/14/20 08:13 ASHLY Document 08/21/20 08:04 [facility] [id number] 08/21/20 08:13 BM 08/07/20 08/14/20 08/21/20 08:17 08:08 08:04 CHRISTIANNE - Today's Visit Information Type of service Follow-up Visit Follow-up Visit Follow-up Visit (Physician/PRINCIPAL ANDROID DEVELOPER (Physician/PRINCIPAL ANDROID DEVELOPER (Physician/PRINCIPAL ANDROID DEVELOPER ) ) ) Arrival Mode Ambulatory Ambulatory Ambulatory Transfer Assistance None Patient Identification Verified (Name & Yes Yes Yes ) Patient Requires Transmission-Based No No Precautions Height and Weight Body Mass Index (BMI) 49.0 49.0 49.0 BMI Classification Obese Obese Obese Vital Signs Temperature (97.8 F-99.1 F) 95.7 F L 98.7 F 97.9 F Temperature Source Temporal Temporal Temporal Pulse Rate (60-100) 72 71 89 Pulse Location Monitor Monitor Monitor Respiratory Rate (12-18) 16 18 Respiratory rate source Observation Observation Oxygen Delivery Method Room Air Blood Pressure (90/60-120/80) 172/105 H 147/76 H 155/99 H Blood Pressure Mean (mm Hg) 127 99 117 Source Monitor Monitor Monitor Position Semi-Fowlers Sitting Sitting Blood Pressure Location Left Arm Left Forearm Left Forearm History Since Last Visit- (Skip if this is Patient's initial visit) Have you changed medications since your No No No last visit? Any new allergies or adverse reactions No No No Had a fall/change in ADL's that may No No increase risk of falls Signs or symptoms of abuse and/or No No No neglect since last visit Have you been in the hospital since your No No No last visit? Has dressing in place as prescribed Yes Yes Yes Has compression in place as prescribed Yes No N/A Has offloadiing in place as prescribed N/A N/A No Experienced any changes in pain level or No No No management Left Footwear Regular Shoe Regular Shoe Regular Shoe Right Footwear Regular Shoe Regular Shoe Regular Shoe Pain Scale: 0-10 Numeric Is Patient Pain Free? Yes No Yes WC - Nurse 1 - General Ulcer Measurement Start: 08/07/20 08:17 Freq: Status: Active Protocol: Activity Type Activity Date Activity User E-Sign Co-Sign Detail Recorded Client Recorded Date Recorded By Document 08/07/20 08:17 KR [id number] 08/07/20 08:21 KR Document 08/14/20 08:08 JF [id number] 08/14/20 08:13 JF Document 08/21/20 08:04 BM [id number] 08/21/20 08:13 BMF 08/07/20 08/14/20 08/21/20 08:17 08:08 08:04 Wound Center Nurse 1 #8 RLE Post -Combined with other wound No No -Current Size (cm) - Length 4 4.0 3.7 -Current Size (cm) - Width 3.5 3.2 3.5 -Current Size (cm) - Depth 0.1 0.1 0.1 -Total Square Cm 14.0 12.80 12.95 -Photo Taken No No -Epithelialization Small 1-33% None Present -Tunneling No No -Undermining/Tunneling No No -Circular Undermining No No -Exudate Amt Large Medium Large -Exudate Type Yellow/Green Serosanguineous Serosanguineous -Wound Margin Distinct, Flat & Intact Distinct, Outline Outline Attached Attached -Granulation Amt Small (1-33%) Medium (34-66%) Medium (34-66%) -Granulation Quality Red Wintergreen Wintergreen -Slough/Fibrin Yes Yes -Necrosis Amt Medium (34-66%) Medium (34-66%) Medium (34-66%) -Necrotic Tissue Type Adherent Slough Adherent Slough Adherent Slough -Structure Exposed None/Limited to Skin Breakdown -Texture (Irene-wound Skin Appearance) Assessed, Assessed, Assessed, Scarring Localized Edema Scarring -Moisture (Irene-wound Skin Appearance) Assessed Assessed Assessed,Dry/ Scaly -Color (Irene-wound Skin Appearance) No Abnormality, Assessed Assessed Assessed -Temperature (Irene-wound Skin No Abnormality No Abnormality No Abnormality Appearance) (Pt Warm) (Pt Warm) (Pt Warm) -Tenderness on Palpation (Irene-wound No No Yes Skin Appearance) -Ulcer Cleansing Rinsed/ soapy water Irrigated with Saline -Foul Odor after Cleansing No No No -Anesthetic Used 4% Lidocaine 4% Lidocaine Solution Solution #7 RLE Ant Cluster -Combined with other wound No No -Current Size (cm) - Length 2.3 2.6 2.2 -Current Size (cm) - Width 1.5 1.4 1.5 -Current Size (cm) - Depth 0.1 0.1 0.2 -Total Square Cm 3.45 3.64 3.30 -Photo Taken No No -Epithelialization Small 1-33% None Present -Tunneling No No -Undermining/Tunneling No -Circular Undermining No -Exudate Amt Medium Medium Medium -Exudate Type Serosanguineous Serosanguineous Serosanguineous -Wound Margin Distinct, Flat & Intact Distinct, Outline Outline Attached Attached -Granulation Amt Medium (34-66%) Small (1-33%) Medium (34-66%) -Granulation Quality Red Wintergreen Red -Slough/Fibrin Yes Yes -Necrosis Amt Medium (34-66%) Large (67-100%) Medium (34-66%) -Necrotic Tissue Type Adherent Slough Adherent Slough Adherent Slough -Structure Exposed N/A -Texture (Irene-wound Skin Appearance) Assessed, Assessed, Assessed, Scarring Localized Edema Scarring -Moisture (Irene-wound Skin Appearance) No Abnormality, Assessed,Dry/ Assessed,Dry/ Assessed Scaly Scaly -Color (Irene-wound Skin Appearance) No Abnormality, Assessed Assessed Assessed -Temperature (Irene-wound Skin No Abnormality No Abnormality No Abnormality Appearance) (Pt Warm) (Pt Warm) (Pt Warm) -Tenderness on Palpation (Irene-wound No No Yes Skin Appearance) -Ulcer Cleansing Rinsed/ Rinsed/ soapy water Irrigated with Irrigated with Saline Saline -Foul Odor after Cleansing No No No -Anesthetic Used 4% Lidocaine 4% Lidocaine Solution Solution Lower Limb Edema Present Yes Right Calf (cm) 72 Right Ankle (cm) 31.5 WC - Nurse 2 - General Ulcer CM Notes Start: 08/07/20 08:17 Freq: Status: Active Protocol: Activity Type Activity Date Activity User E-Sign Co-Sign Detail Recorded Client Recorded Date Recorded By Document 08/07/20 14:22 PL [id number] 08/07/20 14:26 PL Document 08/14/20 08:26 [id number] 08/14/20 08:29 08/07/20 08/14/20 14:22 08:26 Wound Center Nurse 2 #8 RLE Post -Time 08:31 -Correct Patient Yes No -Correct Side, Site, Position Yes No -Correct Procedure Yes No -Procedure Performed Yes No -Type of Procedure Debridement -Clinical Debridement Subcutaneous -Tissue Removed Subcutaneous -Post Debridement (cm) - Length 4.5 -Post Debridement (cm) - Width 3.5 -Post Debridement (cm) - Depth 0.1 -Total Square (Post) (cm) 15.75 -Area of Debridement (cm) - Length 4.5 -Area of Debridement (cm) - Width 3.5 -Total Square (Area) (cm) 15.75 -Tunneling No -Undermining/Tunneling No -Circular Undermining No -Wound/Ulcer Outcome Not Healed Not Healed -Ulcer Cleansing Rinsed/ Irrigated with Saline -Foul Odor after Cleansing No -Bioengineered Tissue Yes -Type of Bioengineered Tissue NuShield -Expiration Date 03/28/24 -Product Lot Number [id number] -Percent Used 100 -Lot number of Saline Used [id number] -Bleeding Controlled with Pressure -Treatment Response Procedure Tolerated Well -Debridement - Subq, 1st 20sq cm No -Apply Skin Sub - 1st 25 sq cm - Legs 1 -NuShield (per sq cm) 12 #7 RLE Ant Cluster -Time 08:31 08:27 -Correct Patient Yes Yes -Correct Side, Site, Position Yes Yes -Correct Procedure Yes Yes -Procedure Performed Yes Yes -Type of Procedure Debridement Debridement -Clinical Debridement Subcutaneous Subcutaneous -Tissue Removed Subcutaneous Subcutaneous -Post Debridement (cm) - Length 2.5 2.7 -Post Debridement (cm) - Width 1.5 1.5 -Post Debridement (cm) - Depth 0.1 0.1 -Total Square (Post) (cm) 3.75 4.05 -Area of Debridement (cm) - Length 2.5 2.7 -Area of Debridement (cm) - Width 1.5 1.5 -Total Square (Area) (cm) 3.75 4.05 -Tunneling No No -Undermining/Tunneling No No -Circular Undermining No No -Wound/Ulcer Outcome Not Healed Not Healed -Ulcer Cleansing Rinsed/ Rinsed/ Irrigated with Irrigated with Saline Saline -Foul Odor after Cleansing No No -Bioengineered Tissue No No -Bleeding Controlled with Pressure Pressure -Offloading No -Treatment Response Procedure Procedure Tolerated Well Tolerated Well -Debridement - Subq, 1st 20sq cm Yes Yes Pain Scale: 0-10 Numeric Is Patient Pain Free? Yes Yes WC - Nurse 3 - General Ulcer D/C NN Start: 08/07/20 08:17 Freq: Status: Active Protocol: Activity Type Activity Date Activity User E-Sign Co-Sign Detail Recorded Client Recorded Date Recorded By Document 08/07/20 09:06 JF [id number] 08/07/20 09:07 JF Document 08/14/20 08:41 KR [id number] 08/14/20 08:41 KR Document 08/21/20 08:49 BMF [id number] 08/21/20 08:51 [facility] 08/07/20 08/14/20 08/21/20 09:06 08:41 08:49 Wound Care Nurse 3 #8 RLE Post -Ulcer Cleansing Rinsed/ Rinsed/ Irrigated with Irrigated with Saline Saline -Foul Odor after Cleansing No -Primary Dressing Applied Aquacel AG 4x4 -Primary Dressing Covered/Secured with Dry Gauze & Secured with Roll Gauze, Tape,Other Secured with Tape -Other Covering ABD -Aquacel AG 4x4 1 #7 RLE Ant Cluster -Ulcer Cleansing Rinsed/ Rinsed/ Rinsed/ Irrigated with Irrigated with Irrigated with Saline Saline Saline -Foul Odor after Cleansing No No -Primary Dressing Applied Promogran Promogran Promogran Devika Matter Devika Matter Devika Matter, Other -Other Dressing MOISTENED Gauze -Primary Dressing Covered/Secured with Dry Gauze, Dry Gauze, Secured with Secured with Secured with Tape,Other Tape Tape -Other Covering abd -Promogran Devika Matter 1 1 1 Treatment Response Procedure Tolerated Well Pain Scale: 0-10 Numeric Is Patient Pain Free? Yes Yes Yes WC - Visit Discharge Discharge Condition Stable Stable Stable Ambulatory Status Ambulatory Ambulatory Ambulatory Transportation Private Auto Private Auto Private Auto Medication Reconcilliation completed & Yes provided to patient/care provider Clinical Summary of Care Provided Yes Wound debrided: RLE anterior ulcer Laterality: Right Type of Debridement: Excisional debridement Anesthesia Used: 4% Lidocaine Solution and Cetacaine Depth: in the subcutaneous layer Percentage of wound debrided: 100 Instrument Used: 5mm curette Tissue Removed: Slough and devitalized tissue Severity: Fat Layer Exposed Amount of bleeding with debridement: Mild Bleeding Controlled with: Pressure Patient tolerated procedure: Patient did not tolerate procedure well Additional Wound Wound debrided: RLE posterior ulcer Laterality: Right Type of Debridement: Excisional debridement Anesthesia Used: 4% Lidocaine Solution and Cetacaine Depth: in the subcutaneous layer Percentage of wound debrided: 100 Instrument Used: 7mm curette Tissue Removed: Slough and devitalized tissue Severity: Fat Layer Exposed Amount of bleeding with debridement: Mild Bleeding Controlled with: Pressure Patient tolerated procedure: Patient tolerated procedure well Assessment/Plan Assessment/Plan (1) Ulcer of right lower extremity with fat layer exposed: CODE(S): Code(s): L97.912 - Non-pressure chronic ulcer of unspecified part of right lower leg with fat layer exposed (2) Venous ulcer of right leg: CODE(S): Code(s): I83.019 - Varicose veins of right lower extremity with ulcer of unspecified site; L97.919 - Non-pressure chronic ulcer of unspecified part of right lower leg with unspecified severity (3) Venous insufficiency: (4) Cellulitis of right lower extremity: CODE(S): Code(s): L03.115 - Cellulitis of right lower limb (5) Lymphedema: CODE(S): Code(s): I89.0 - Lymphedema, not elsewhere classified (6) Morbid obesity: CODE(S): Code(s): E66.01 - Morbid (severe) obesity due to excess calories PLAN: Debridement performed today in clinic as annotated above. Given the duration of the venous leg ulcers and failure of the ulcers to respond to standard wound care, we applied and were approved for Puraply, Nushield, and Apligraf. The patient had previously completed 6 applications of Puraply to the posterior RLE ulcer. Puraply was then discontinued due to failure of the wound to improve in size and appearance, which I suspect was due to the patient's inability to tolerate thorough debridement and refusal to appropriately utilize compression. With an increase in the use of her lymphedema pumps and multiple approaches to wound debridement, the patient's wound sizes improved and bioburden was reduced, and she is now able to better tolerate debridement of her posterior RLE ulcer. Advanced skin substitutes were again applied for and approved. Of the 10 approved applications, she has had 1 Puraply application, 5/5 Apligraf applications, and 4 Nushield applications. Aquacel Ag was applied to the posterior RLE ulcer. Devika was applied to the anterior RLE ulcer. At home wound-care instructions: For posterior RLE ulcer: Perform Aquacel Ag dressing changes daily. Wash wounds prior to each dressing change, using antibacterial soap and water; rinse and dry thoroughly. For anterior RLE ulcer: Perform Devika dressing changes every 2 days. Wash wounds with dressing changes, using antibacterial soap and water, rinse and dry thoroughly before each dressing change. Continue calmoseptine to the anterior periulcer area for skin irritation/excoriation, so long as it does not interfere with keeping the dressings clean. Compression: As previously discussed, lymphedema pumps should be utilized for 1 hour 3 times per day. If this is not well-tolerated, the patient should continue to use the pumps as long and as frequently as possible, working toward this goal. She has generally been noncompliant with these instructions. We will reach out to [employer] regarding the order for CircAid's and possible alternatives due to unavailability of patient's required size. Off-loading: The patient was instructed to avoid pressure and friction on the affected areas. Reposition every 2 hours at minimum. Avoid prolonged standing and/or dangling of legs. When seated, feet should be elevated at chest level. Frequent ambulation is encouraged. Diet: Patient encouraged to increase protein intake while taking caution to avoid high carbohydrate and/or sugar intake. Labs/cultures/imaging: Most recent cultures (07/17/2020) were significant only for rare Enterobacter cloacae complex and rare corynebacterium striatum. She has completed 3 weeks of Levaquin 500 mg daily for her right medial thigh erythema and warmth. No further antibiotics will be given at this time. We will continue to monitor. Follow-up: Return to clinic in 2 weeks for re-evaluation. Return sooner or report to the emergency room should symptoms worsen, or new symptoms arise. Note: [employer] speech recognition dispatch clerk software was used to create portions of this document. Sound-alike and misspelled words, as well as other dispatch clerk errors may be contained in the documentation.
== END 2020-08-31 23:59 ==
LOC: WC 08:00
PROVIDERS: PCP Family Medicine; Referring Provider Family Medicine; Visit Provider Nurse Practitioner Family
DX: I83.018 Varicose veins of right lower extremity with ulcer other part of lower leg (principal); L97.212 Non-pressure chronic ulcer of right calf with fat layer exposed; L97.812 Non-pressure chronic ulcer of other part of right lower leg with fat layer exposed; I87.2 Venous insufficiency (chronic) (peripheral); I87.8 Other specified disorders of veins; L03.115 Cellulitis of right lower limb; I89.0 Lymphedema, not elsewhere classified; E03.9 Hypothyroidism, unspecified; Z91.19 Patient's noncompliance with other medical treatment and regimen; E66.01 Morbid (severe) obesity due to excess calories; Z68.42 Body mass index [BMI] 45.0-49.9, adult; Z79.01 Long term (current) use of anticoagulants; Z79.899 Other long term (current) drug therapy
CPT/HCPCS: 11042; 15271; Q4160

== ENCOUNTER 2020-09-22 15:30 | Outpatient (RCR) | payer MEDICAID, SELFPAY ==
[2020-09-01 00:15] VITALS: BP 155/99; PULSE 89; RESP 18; TEMP 36.6
[2020-09-04 08:08] VITALS: BP 105/75; PULSE 74; RESP 18; TEMP 35.9; BMI 49.0
--- NOTE | 2020-09-04 12:20 | PCM.WC.PN ---
History of Present Illness Date of Service: 09/04/20 Chief Complaint: Ulcers of right lower extremity History of Wound: [facility] for evaluation and treatment of bilateral lower leg ulcers. The patient is [facility] treatment of prior lower extremity ulcers. She has a PMH significant for chronic lymphedema, venous insufficiency, atrial fibrillation (on Eliquis), morbid obesity, hypothyroidism. She reported development of her posterior right lower leg ulcer in April. She initially was using Manuka honey to this ulcer, but then started using Vaseline instead. She reported her anterior right lower extremity ulcer developed in August, and she had been applying Vaseline to this daily. Her anterior left lower extremity ulcer developed approximately 1 week prior to her initial January 2020 appt, and she had been applying Vaseline to this daily as well. She notes that approximately 4 to 6 weeks prior, the ulcer on her posterior right lower leg began increasing in soreness. She has lymphedema pumps at home, but had not been using these due to reported pain with use which is related to her ulcers. She does not use compression at home. She reports frequent dangling of her legs while seated at her computer for work. She does not frequently elevate her feet when seated. The patient denied any fever, chills, nausea, vomiting, or diarrhea. Denied any increasing redness or swelling of the affected area. She did note foul-smelling drainage from her right lower extremity. She had not been on any recent antibiotics. She reported having lab work done approximately 6 weeks prior; these records will be requested for review multiple times but never obtained. She had lower extremity arterial studies completed 05/16/16 which showed relatively normal arterial perfusion to ankle level bilaterally. Triphasic waveforms were noted at ankle level bilaterally. Resting ankle-brachial indices were bilaterally normal. The right digital-brachial index is normal, consistent with normal arterial perfusion at distal, small-vessel level in the right lower extremity. The left digital-brachial index is mildly diminished, suggesting the presence of mild, distal, small-vessel arterial occlusive disease in the left lower extremity. Wound cultures collected on 01/03/2020 were positive for 3+ Aeromonas hydrophilia/caviae, 2+ Citrobacter braakii, 1+ Proteus mirabilis, rare Staphylococus aureus, anaerobic cocci, actinomyces odontolyticus, Bacteroides fragilis; beta-lactamase positive. She completed courses of Levaquin and Augmentin. Weeks later, she developed a mass of localized lymphedema of her right medial thigh that was red and warm; this resolved following a 14-day course of Levaquin and Augmentin. Progress of Wound: Toña returns today for follow-up of ulcers of her right lower extremity. Her ulcers are stable today. She has been using Aquacel Ag to the posterior RLE ulcer and tolerating this well. She has been tolerating Devika to the anterior RLE ulcer. She reports no notable drainage from the anterior RLE ulcer. The ulcer appears less dry with the use of Devika. The culture of her posterior RLE ulcer on 07/17/2020 was positive for rare Enterobacter cloacae complex susceptible to levofloxacin, and rare corynebacterium striatum. She denies any increased or purulent/malodorous drainage from her wounds. She denies fever or chills. The massive localized lymphedema of her right medial thigh had decreased in redness and warmth with the use of Levaquin. Keflex was also of benefit in the past. Doxycycline was not felt to be of significant benefit. She has some moderate erythema of the right medial thigh today, and reports some tenderness of the area in the past few days. She has been generally noncompliant with the use of lymphedema pumps and lower extremity elevation. 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 She has been advised to take walking breaks when driving and to elevate legs anytime she is seated, but has not followed these instructions. She performs seated work, sitting at a desk without feet elevated. She reports she previously was given thigh-high CircAids, but could not wear these during the day d/t being unable to bend the leg. Knee-high CircAid's were ordered, however per our conversation with [employer] there is no compression available in the patient's size. Objective Data Objective Data Vital Signs: Vital Signs Temp Pulse Resp BP 96.6 F L 74 18 105/75 09/04/20 08:08 09/04/20 08:08 09/04/20 08:08 09/04/20 08:08 Weight: 342 lb Body Mass Index (BMI) 49.0 Charges/Coding Procedures Integumentary [id number]: [id number] Shante subq tissue 20 sq cm/< Physical Exam Const alert, no apparent distress and healthy appearing General Appearance: cooperative, comfortable and well kempt Nutritional Appearance: obese HEENT Head and Scalp: normocephalic and atraumatic Neck supple and no JVD Lymph Lymphatic: lymphedema moderate Resp normal respiratory effort, normal air movement and no use of accessory muscles GI non-distended Extremity normal capillary refill, no joint enlargement and no calf tenderness General Extremity: edema bilateral lower extremity Details: moderate; Negative for clubbing or cyanosis Peripheral Pulses: Yes dorsalis pedis pulses present bilateral 2+ Skin Rashes: rashes noted Wounds: wounds noted No malodorous Wound Narrative: RLE anterior ulcer with moderate amount of slough and devitalized tissue present. Periulcer excoriation has greatly improved. No periulcer warmth or edema. No purulent/malodorous drainage. No tunneling, undermining, or probing to bone. RLE posterior ulcer with small to moderate amount of slough and devitalized tissue present. Good granulation tissue present. No periulcer excoriation or erythema. No periulcer warmth or edema. No purulent/malodorous drainage. No tunneling, undermining, or probing to bone. Neuro moves all extremities Sensorium / Orientation: awake and alert Psych mental status grossly normal, cooperative and affect normal Appearance: grossly normal Debridement Note Debridement Note Post-Debridement Measurements and Additional Note: Post-Debridement Measurements/Treatment - Nurse 1 - General Ulcer Assessment Start: 09/04/20 08:05 Freq: Status: Active Protocol: [email or web address] Activity Type Activity Date Activity User E-Sign Co-Sign Detail Recorded Client Recorded Date Recorded By Document 09/04/20 08:08 Desktop 09/04/20 08:17 PL 09/04/20 08:08 - Today's Visit Information Type of service Follow-up Visit (Physician/MEDICAL RECORD CONSULTANT ) Arrival Mode Ambulatory Transfer Assistance None Patient Identification Verified (Name & Yes ) Patient Requires Transmission-Based No Precautions Safety Precautions NA Height and Weight Body Mass Index (BMI) 49.0 BMI Classification Obese Vital Signs Temperature (97.8 F-99.1 F) 96.6 F L Temperature Source Temporal Pulse Rate (60-100) 74 Respiratory Rate (12-18) 18 Blood Pressure (90/60-120/80) 105/75 Blood Pressure Mean (mm Hg) 85 History Since Last Visit- (Skip if this is Patient's initial visit) Have you changed medications since your No last visit? Any new allergies or adverse reactions No Had a fall/change in ADL's that may No increase risk of falls Signs or symptoms of abuse and/or No neglect since last visit Have you been in the hospital since your No last visit? Has dressing in place as prescribed Yes Has compression in place as prescribed N/A Has offloadiing in place as prescribed N/A Experienced any changes in pain level or No management Pain Scale: 0-10 Numeric Is Patient Pain Free? Yes WC - Nurse 1 - General Ulcer Measurement Start: 09/04/20 08:05 Freq: Status: Active Protocol: Activity Type Activity Date Activity User E-Sign Co-Sign Detail Recorded Client Recorded Date Recorded By Document 09/04/20 08:08 PL Desktop 09/04/20 08:17 PL 09/04/20 08:08 Wound Center Nurse 1 #8 RLE Post -Current Size (cm) - Length 5 -Current Size (cm) - Width 3 -Current Size (cm) - Depth 0.2 -Total Square Cm 15 -Exudate Amt Medium -Exudate Type Serosanguineous -Wound Margin Distinct, Outline Attached -Granulation Amt Medium (34-66%) -Granulation Quality [place] -Slough/Fibrin Yes -Necrosis Amt Medium (34-66%) -Texture (Irene-wound Skin Appearance) No Abnormality -Moisture (Irene-wound Skin Appearance) No Abnormality -Color (Irene-wound Skin Appearance) No Abnormality -Temperature (Irene-wound Skin No Abnormality Appearance) (Pt Warm) -Tenderness on Palpation (Irene-wound Yes Skin Appearance) -Ulcer Cleansing Wound Cleanser -Anesthetic Used 4% Lidocaine Solution #7 RLE Ant Cluster -Current Size (cm) - Length 2 -Current Size (cm) - Width 1 -Current Size (cm) - Depth 0.2 -Total Square Cm 2 -Exudate Amt Medium -Exudate Type Serosanguineous -Wound Margin Distinct, Outline Attached -Granulation Amt Medium (34-66%) -Granulation Quality [place] -Slough/Fibrin Yes -Necrosis Amt Medium (34-66%) -Necrotic Tissue Type Adherent Slough -Texture (Irene-wound Skin Appearance) No Abnormality -Moisture (Irene-wound Skin Appearance) No Abnormality -Color (Irene-wound Skin Appearance) No Abnormality -Temperature (Irene-wound Skin No Abnormality Appearance) (Pt Warm) -Ulcer Cleansing Wound Cleanser -Foul Odor after Cleansing No -Anesthetic Used 4% Lidocaine Solution WC - Nurse 2 - General Ulcer CM Notes Start: 09/04/20 08:05 Freq: Status: Active Protocol: Activity Type Activity Date Activity User E-Sign Co-Sign Detail Recorded Client Recorded Date Recorded By Document 09/04/20 09:48 PL [id number] 09/04/20 09:51 PL 09/04/20 09:48 Wound Center Nurse 2 #8 RLE Post -Time 08:22 -Correct Patient Yes -Correct Side, Site, Position Yes -Correct Procedure Yes -Procedure Performed Yes -Type of Procedure Debridement -Clinical Debridement Subcutaneous -Tissue Removed Dermis, Subcutaneous -Post Debridement (cm) - Length 4.5 -Post Debridement (cm) - Width 3.5 -Post Debridement (cm) - Depth 0.1 -Total Square (Post) (cm) 15.75 -Area of Debridement (cm) - Length 4.5 -Area of Debridement (cm) - Width 3.5 -Total Square (Area) (cm) 15.75 -Tunneling No -Undermining/Tunneling No -Circular Undermining No -Wound/Ulcer Outcome Not Healed -Ulcer Cleansing Rinsed/ Irrigated with Saline -Foul Odor after Cleansing No -Bioengineered Tissue No -Debridement - Subq, 1st 20sq cm Yes #7 RLE Ant Cluster -Time 08:22 -Correct Patient Yes -Correct Side, Site, Position Yes -Correct Procedure Yes -Procedure Performed Yes -Type of Procedure Debridement -Clinical Debridement Subcutaneous -Tissue Removed Subcutaneous -Post Debridement (cm) - Length 2.5 -Post Debridement (cm) - Width 1.3 -Post Debridement (cm) - Depth 0.1 -Total Square (Post) (cm) 3.25 -Area of Debridement (cm) - Length 2.5 -Area of Debridement (cm) - Width 1.3 -Total Square (Area) (cm) 3.25 -Tunneling No -Undermining/Tunneling No -Circular Undermining No -Wound/Ulcer Outcome Not Healed -Ulcer Cleansing Rinsed/ Irrigated with Saline -Foul Odor after Cleansing No -Bioengineered Tissue No -Debridement - Subq, 1st 20sq cm Yes Pain Scale: 0-10 Numeric Is Patient Pain Free? Yes - Nurse 3 - General Ulcer D/C NN Start: 09/04/20 08:05 Freq: Status: Active Protocol: Activity Type Activity Date Activity User E-Sign Co-Sign Detail Recorded Client Recorded Date Recorded By Document 09/04/20 08:50 MS Desktop 09/04/20 08:52 MS 09/04/20 08:50 Wound Care Nurse 3 #8 RLE Post -Ulcer Cleansing Rinsed/ Irrigated with Saline -Primary Dressing Applied Aquacel AG 4x4 -Primary Dressing Covered/Secured with Dry Gauze, Secured with Tape -Aquacel AG 4x4 1 #7 RLE Ant Cluster -Ulcer Cleansing Rinsed/ Irrigated with Saline -Foul Odor after Cleansing No -Primary Dressing Applied Promogran Devika Matter -Primary Dressing Covered/Secured with Dry Gauze, Secured with Tape -Promogran Devika Matter 1 WC - Visit Discharge Discharge Condition Stable Ambulatory Status Ambulatory Medication Reconcilliation completed & No provided to patient/care provider Clinical Summary of Care Provided Yes Wound debrided: RLE anterior ulcer Laterality: Right Type of Debridement: Excisional debridement Anesthesia Used: 4% Lidocaine Solution and Cetacaine Depth: in the subcutaneous layer Percentage of wound debrided: 100 Instrument Used: 7mm curette Tissue Removed: Slough and devitalized tissue Severity: Fat Layer Exposed Amount of bleeding with debridement: Mild Bleeding Controlled with: Pressure Patient tolerated procedure: Patient tolerated procedure well Additional Wound Wound debrided: RLE posterior ulcer Laterality: Right Type of Debridement: Excisional debridement Anesthesia Used: 4% Lidocaine Solution Depth: in the subcutaneous layer Percentage of wound debrided: 100 Instrument Used: 7mm curette Tissue Removed: Slough and devitalized tissue Severity: Fat Layer Exposed Amount of bleeding with debridement: Mild Bleeding Controlled with: Pressure Patient tolerated procedure: Patient tolerated procedure well Assessment/Plan Assessment/Plan (1) Ulcer of right lower extremity with fat layer exposed: CODE(S): L97.912 - Non-pressure chronic ulcer of unspecified part of right lower leg with fat layer exposed (2) Venous ulcer of right leg: CODE(S): I83.019 - Varicose veins of right lower extremity with ulcer of unspecified site; L97.919 - Non-pressure chronic ulcer of unspecified part of right lower leg with unspecified severity (3) Venous insufficiency: (4) Cellulitis of right lower extremity: CODE(S): L03.115 - Cellulitis of right lower limb (5) Lymphedema: CODE(S): I89.0 - Lymphedema, not elsewhere classified (6) Morbid obesity: CODE(S): E66.01 - Morbid (severe) obesity due to excess calories PLAN: Debridement performed today in clinic as annotated above. Given the duration of the venous leg ulcers and failure of the ulcers to respond to standard wound care, we applied and were approved for Puraply, Nushield, and Apligraf. The patient had previously completed 6 applications of Puraply to the posterior RLE ulcer. Puraply was then discontinued due to failure of the wound to improve in size and appearance, which I suspect was due to the patient's inability to tolerate thorough debridement and refusal to appropriately utilize compression. With an increase in the use of her lymphedema pumps and multiple approaches to wound debridement, the patient's wound sizes improved and bioburden was reduced, and she is now able to better tolerate debridement of her posterior RLE ulcer. Advanced skin substitutes were again applied for and approved. Of the 10 approved applications, she received 1 Puraply application, 5/5 Apligraf applications, and 4 Nushield applications. Aquacel Ag was applied to the posterior RLE ulcer. Devika was applied to the anterior RLE ulcer. At home wound-care instructions: For posterior RLE ulcer: Perform Aquacel Ag dressing changes daily. Wash wounds prior to each dressing change, using antibacterial soap and water; rinse and dry thoroughly. For anterior RLE ulcer: Perform Devika dressing changes every 2 days. Wash wounds with dressing changes, using antibacterial soap and water, rinse and dry thoroughly before each dressing change. Continue calmoseptine to the anterior periulcer area for skin irritation/excoriation, so long as it does not interfere with keeping the dressings clean. Compression: As previously discussed, lymphedema pumps should be utilized for 1 hour 3 times per day. If this is not well-tolerated, the patient should continue to use the pumps as long and as frequently as possible, working toward this goal. Due to difficulty fitting her legs into the lymphedema pumps, it is recommended that she begin using the lymphedema pumps first thing in the morning. She reports she is working with the company to obtain a bigger size and/or a new pump if necessary. At this time, we were told by [employer] that they have no compression available in the patient's size. We will look into customizable sizing options. In the meantime, the patient is advised to utilize her thigh-high CircAid's in the evenings and use her lymphedema pumps 3 times daily beginning first thing in the morning in efforts to reduce the swelling/circumference of her legs and enable her to obtain knee-high CircAid's. We can remeasure leg circumference at each visit. Off-loading: The patient was instructed to avoid pressure and friction on the affected areas. Reposition every 2 hours at minimum. Avoid prolonged standing and/or dangling of legs. When seated, feet should be elevated at chest level. Frequent ambulation is encouraged. Diet: Patient encouraged to increase protein intake while taking caution to avoid high carbohydrate and/or sugar intake. Labs/cultures/imaging: Most recent cultures (07/17/2020) were significant only for rare Enterobacter cloacae complex and rare corynebacterium striatum. She has completed 3 weeks of Levaquin 500 mg daily for her right medial thigh erythema and warmth. Erythema, warmth and tenderness of R medial thigh have recurred and another course of Levaquin will be prescribed. Follow-up: Return to clinic in 1 week for re-evaluation. Return sooner or report to the emergency room should symptoms worsen, or new symptoms arise. Note: [employer] speech recognition international student counselor software was used to create portions of this document. Sound-alike and misspelled words, as well as other international student counselor errors may be contained in the documentation.
[2020-09-11 08:07] VITALS: BP 191/94; PULSE 68; TEMP 36.3; BMI 49.0
--- NOTE | 2020-09-11 09:06 | PCM.WC.PN ---
History of Present Illness Date of Service: 09/11/20 Chief Complaint: Ulcers of right lower extremity History of Wound: [facility] for evaluation and treatment of bilateral lower leg ulcers. The patient is [facility] treatment of prior lower extremity ulcers. She has a PMH significant for chronic lymphedema, venous insufficiency, atrial fibrillation (on Eliquis), morbid obesity, hypothyroidism. She reported development of her posterior right lower leg ulcer in April. She initially was using Manuka honey to this ulcer, but then started using Vaseline instead. She reported her anterior right lower extremity ulcer developed in August, and she had been applying Vaseline to this daily. Her anterior left lower extremity ulcer developed approximately 1 week prior to her initial January 2020 appt, and she had been applying Vaseline to this daily as well. She notes that approximately 4 to 6 weeks prior, the ulcer on her posterior right lower leg began increasing in soreness. She has lymphedema pumps at home, but had not been using these due to reported pain with use which is related to her ulcers. She does not use compression at home. She reports frequent dangling of her legs while seated at her computer for work. She does not frequently elevate her feet when seated. The patient denied any fever, chills, nausea, vomiting, or diarrhea. Denied any increasing redness or swelling of the affected area. She did note foul-smelling drainage from her right lower extremity. She had not been on any recent antibiotics. She reported having lab work done approximately 6 weeks prior; these records will be requested for review multiple times but never obtained. She had lower extremity arterial studies completed 05/16/16 which showed relatively normal arterial perfusion to ankle level bilaterally. Triphasic waveforms were noted at ankle level bilaterally. Resting ankle-brachial indices were bilaterally normal. The right digital-brachial index is normal, consistent with normal arterial perfusion at distal, small-vessel level in the right lower extremity. The left digital-brachial index is mildly diminished, suggesting the presence of mild, distal, small-vessel arterial occlusive disease in the left lower extremity. Wound cultures collected on 01/03/2020 were positive for 3+ Aeromonas hydrophilia/caviae, 2+ Citrobacter braakii, 1+ Proteus mirabilis, rare Staphylococus aureus, anaerobic cocci, actinomyces odontolyticus, Bacteroides fragilis; beta-lactamase positive. She completed courses of Levaquin and Augmentin. Weeks later, she developed a mass of localized lymphedema of her right medial thigh that was red and warm; this resolved following a 14-day course of Levaquin and Augmentin. Progress of Wound: Toña returns today for follow-up of ulcers of her right lower extremity. Her ulcers are stable today. She has been using Aquacel Ag to the posterior RLE ulcer and tolerating this well. She has been tolerating Devika to the anterior RLE ulcer. She reports no notable drainage from the anterior RLE ulcer. The ulcer appears less dry with the use of Devika. She denies any increased or purulent/malodorous drainage from her wounds. She denies fever or chills. The mass of localized lymphedema of her right medial thigh has again decreased in redness and warmth with the use of Levaquin. Keflex was also of benefit in the past. Doxycycline was not felt to be of significant benefit. She has been generally noncompliant with the use of lymphedema pumps and lower extremity elevation. 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 She has been advised to take walking breaks when driving and to elevate legs anytime she is seated, but has not followed these instructions. She performs seated work, sitting at a desk without feet elevated. She reports she previously was given thigh-high CircAids, but could not wear these during the day d/t being unable to bend the leg. Knee-high CircAid's were ordered, however per our conversation with [employer] there is no compression available in the patient's size. The patient states she has been unable to get her lymphedema pump sleeves fully zipped and thus has not been using these. Her last venous studies were in 2014 and revealed venous insufficiency. Her last arterial studies were in 2017 and revealed small vessel arterial occlusive disease. She has been reluctant to pursue further evaluation with vascular studies. However, given the failure of the ulcers to heal with both routine and advanced wound care regimens, I feel it is necessary to reevaluate vascular function and reconsider vascular referral. The patient continues to express reluctance. Objective Data Objective Data Vital Signs: Vital Signs Temp Pulse Resp BP 97.3 F L 68 18 191/94 H 09/11/20 08:07 09/11/20 08:07 09/04/20 08:08 09/11/20 08:07 Weight: 342 lb Body Mass Index (BMI) 49.0 Charges/Coding Procedures Integumentary 111xxx-113xx: [id number] Shante subq tissue 20 sq cm/< Physical Exam Const alert, no apparent distress and healthy appearing General Appearance: cooperative, comfortable and well kempt Nutritional Appearance: obese HEENT Head and Scalp: normocephalic and atraumatic Neck supple and no JVD Lymph Lymphatic: lymphedema moderate Resp normal respiratory effort and no use of accessory muscles GI non-distended Extremity normal capillary refill, no joint enlargement and no calf tenderness General Extremity: edema bilateral lower extremity Details: moderate; Negative for clubbing or cyanosis Peripheral Pulses: Yes dorsalis pedis pulses present bilateral 2+ Skin Rashes: rashes noted Wounds: wounds noted No malodorous Wound Narrative: RLE anterior ulcer with moderate amount of slough and devitalized tissue present. Small amount of good granulation tissue present. Periulcer excoriation has improved. No periulcer warmth or edema. No purulent/malodorous drainage. No tunneling, undermining, or probing to bone. RLE posterior ulcer with small to moderate amount of slough and devitalized tissue present. Good granulation tissue present. No periulcer excoriation or erythema. No periulcer warmth or edema. No purulent/malodorous drainage. No tunneling, undermining, or probing to bone. Neuro moves all extremities Sensorium / Orientation: awake and alert Psych mental status grossly normal, cooperative and affect normal Appearance: grossly normal Debridement Note Debridement Note Post-Debridement Measurements and Additional Note: Post-Debridement Measurements/Treatment - Nurse 1 - General Ulcer Assessment Start: 09/04/20 08:05 Freq: Status: Active Protocol: [email or web address] Activity Type Activity Date Activity User E-Sign Co-Sign Detail Recorded Client Recorded Date Recorded By Document 09/04/20 08:08 PL Desktop 09/04/20 08:17 PL Document 09/11/20 08:07 RAMON [id number] 09/11/20 08:18 RAMON 09/04/20 09/11/20 08:08 08:07 - Today's Visit Information Type of service Follow-up Visit Follow-up Visit (Physician/SPONGE DIVER (Physician/SPONGE DIVER ) ) Arrival Mode Ambulatory Ambulatory Transfer Assistance None Patient Identification Verified (Name & Yes Yes ) Patient Requires Transmission-Based No Precautions Safety Precautions NA Height and Weight Body Mass Index (BMI) 49.0 49.0 BMI Classification Obese Obese Vital Signs Temperature (97.8 F-99.1 F) 96.6 F L 97.3 F L Temperature Source Temporal Temporal Pulse Rate (60-100) 74 68 Pulse Location Monitor Respiratory Rate (12-18) 18 Blood Pressure (90/60-120/80) 105/75 191/94 H Blood Pressure Mean (mm Hg) 85 126 Source Monitor Position Semi-Fowlers Blood Pressure Location Right Arm History Since Last Visit- (Skip if this is Patient's initial visit) Have you changed medications since your No No last visit? Any new allergies or adverse reactions No No Had a fall/change in ADL's that may No No increase risk of falls Signs or symptoms of abuse and/or No No neglect since last visit Have you been in the hospital since your No No last visit? Has dressing in place as prescribed Yes Yes Has compression in place as prescribed N/A N/A Has offloadiing in place as prescribed N/A N/A Experienced any changes in pain level or No No management Left Footwear Regular Shoe Right Footwear Regular Shoe Pain Scale: 0-10 Numeric Is Patient Pain Free? Yes Yes WC - Nurse 1 - General Ulcer Measurement Start: 09/04/20 08:05 Freq: Status: Active Protocol: Activity Type Activity Date Activity User E-Sign Co-Sign Detail Recorded Client Recorded Date Recorded By Document 09/04/20 08:08 PL Desktop 09/04/20 08:17 PL Document 09/11/20 08:07 RAMON [id number] 09/11/20 08:18 KR 09/04/20 09/11/20 08:08 08:07 Wound Center Nurse 1 #8 RLE Post -Current Size (cm) - Length 5 4.4 -Current Size (cm) - Width 3 3.2 -Current Size (cm) - Depth 0.2 0.1 -Total Square Cm 15 14.08 -Exudate Amt Medium Small -Exudate Type Serosanguineous Serosanguineous -Wound Margin Distinct, Distinct, Outline Outline Attached Attached -Granulation Amt Medium (34-66%) Medium (34-66%) -Granulation Quality [place] Red -Slough/Fibrin Yes -Necrosis Amt Medium (34-66%) None Present (0 %) -Texture (Irene-wound Skin Appearance) No Abnormality Assessed, Scarring -Moisture (Irene-wound Skin Appearance) No Abnormality No Abnormality, Assessed -Color (Irene-wound Skin Appearance) No Abnormality No Abnormality, Assessed -Temperature (Irene-wound Skin No Abnormality No Abnormality Appearance) (Pt Warm) (Pt Warm) -Tenderness on Palpation (Irene-wound Yes No Skin Appearance) -Ulcer Cleansing Wound Cleanser Rinsed/ Irrigated with Saline -Foul Odor after Cleansing No -Anesthetic Used 4% Lidocaine 4% Lidocaine Solution Solution #7 RLE Ant Cluster -Current Size (cm) - Length 2 2.3 -Current Size (cm) - Width 1 1.3 -Current Size (cm) - Depth 0.2 0.1 -Total Square Cm 2 2.99 -Exudate Amt Medium Small -Exudate Type Serosanguineous Serosanguineous -Wound Margin Distinct, Distinct, Outline Outline Attached Attached -Granulation Amt Medium (34-66%) Small (1-33%) -Granulation Quality [place] Red -Slough/Fibrin Yes -Necrosis Amt Medium (34-66%) None Present (0 %) -Necrotic Tissue Type Adherent Slough -Texture (Irene-wound Skin Appearance) No Abnormality Assessed, Scarring -Moisture (Irene-wound Skin Appearance) No Abnormality No Abnormality, Assessed -Color (Irene-wound Skin Appearance) No Abnormality No Abnormality, Assessed -Temperature (Irene-wound Skin No Abnormality No Abnormality Appearance) (Pt Warm) (Pt Warm) -Tenderness on Palpation (Irene-wound No Skin Appearance) -Ulcer Cleansing Wound Cleanser Rinsed/ Irrigated with Saline -Foul Odor after Cleansing No No -Anesthetic Used 4% Lidocaine 4% Lidocaine Solution Solution Right Calf (cm) 74.1 Right Ankle (cm) 35.2 WC - Nurse 2 - General Ulcer CM Notes Start: 09/04/20 08:05 Freq: Status: Active Protocol: Activity Type Activity Date Activity User E-Sign Co-Sign Detail Recorded Client Recorded Date Recorded By Document 09/04/20 09:48 PL [id number] 09/04/20 09:51 PL Edit Result 09/04/20 09:48 PL (1) [id number] 09/06/20 12:10 PL (1) #7 RLE Ant Cluster - Debridement - Subq, 1st 20sq cm Yes => No 09/04/20 09:48 Wound Center Nurse 2 #8 RLE Post -Time 08:22 -Correct Patient Yes -Correct Side, Site, Position Yes -Correct Procedure Yes -Procedure Performed Yes -Type of Procedure Debridement -Clinical Debridement Subcutaneous -Tissue Removed Dermis, Subcutaneous -Post Debridement (cm) - Length 4.5 -Post Debridement (cm) - Width 3.5 -Post Debridement (cm) - Depth 0.1 -Total Square (Post) (cm) 15.75 -Area of Debridement (cm) - Length 4.5 -Area of Debridement (cm) - Width 3.5 -Total Square (Area) (cm) 15.75 -Tunneling No -Undermining/Tunneling No -Circular Undermining No -Wound/Ulcer Outcome Not Healed -Ulcer Cleansing Rinsed/ Irrigated with Saline -Foul Odor after Cleansing No -Bioengineered Tissue No -Debridement - Subq, 1st 20sq cm Yes #7 RLE Ant Cluster -Time 08:22 -Correct Patient Yes -Correct Side, Site, Position Yes -Correct Procedure Yes -Procedure Performed Yes -Type of Procedure Debridement -Clinical Debridement Subcutaneous -Tissue Removed Subcutaneous -Post Debridement (cm) - Length 2.5 -Post Debridement (cm) - Width 1.3 -Post Debridement (cm) - Depth 0.1 -Total Square (Post) (cm) 3.25 -Area of Debridement (cm) - Length 2.5 -Area of Debridement (cm) - Width 1.3 -Total Square (Area) (cm) 3.25 -Tunneling No -Undermining/Tunneling No -Circular Undermining No -Wound/Ulcer Outcome Not Healed -Ulcer Cleansing Rinsed/ Irrigated with Saline -Foul Odor after Cleansing No -Bioengineered Tissue No -Debridement - Subq, 1st 20sq cm No Pain Scale: 0-10 Numeric Is Patient Pain Free? Yes WC - Nurse 3 - General Ulcer D/C NN Start: 09/04/20 08:05 Freq: Status: Active Protocol: Activity Type Activity Date Activity User E-Sign Co-Sign Detail Recorded Client Recorded Date Recorded By Document 09/04/20 08:50 MS Desktop 09/04/20 08:52 MS 09/04/20 08:50 Wound Care Nurse 3 #8 RLE Post -Ulcer Cleansing Rinsed/ Irrigated with Saline -Primary Dressing Applied Aquacel AG 4x4 -Primary Dressing Covered/Secured with Dry Gauze, Secured with Tape -Aquacel AG 4x4 1 #7 RLE Ant Cluster -Ulcer Cleansing Rinsed/ Irrigated with Saline -Foul Odor after Cleansing No -Primary Dressing Applied Promogran Devika Matter -Primary Dressing Covered/Secured with Dry Gauze, Secured with Tape -Promogran Devika Matter 1 WC - Visit Discharge Discharge Condition Stable Ambulatory Status Ambulatory Medication Reconcilliation completed & No provided to patient/care provider Clinical Summary of Care Provided Yes Wound debrided: anterior RLE Laterality: Right Type of Debridement: Excisional debridement Anesthesia Used: 4% Lidocaine Solution and Cetacaine Depth: in the subcutaneous layer Percentage of wound debrided: 100 Instrument Used: 7mm curette Tissue Removed: Slough and devitalized tissue Severity: Fat Layer Exposed Amount of bleeding with debridement: Mild Bleeding Controlled with: Pressure Patient tolerated procedure: Patient tolerated procedure well Additional Wound Wound debrided: Posterior RLE Laterality: Right Type of Debridement: Excisional debridement Anesthesia Used: 4% Lidocaine Solution and Cetacaine Depth: in the subcutaneous layer Percentage of wound debrided: 100 Instrument Used: 7mm curette Tissue Removed: Slough and devitalized tissue Severity: Fat Layer Exposed Amount of bleeding with debridement: Mild Bleeding Controlled with: Pressure Patient tolerated procedure: Patient tolerated procedure well Assessment/Plan Assessment/Plan (1) Ulcer of right lower extremity with fat layer exposed: CODE(S): L97.912 - Non-pressure chronic ulcer of unspecified part of right lower leg with fat layer exposed (2) Venous ulcer of right leg: CODE(S): I83.019 - Varicose veins of right lower extremity with ulcer of unspecified site; L97.919 - Non-pressure chronic ulcer of unspecified part of right lower leg with unspecified severity (3) Nonhealing ulcer of right lower extremity: CODE(S): L97.919 - Non-pressure chronic ulcer of unspecified part of right lower leg with unspecified severity QUALIFIERS: Non-pressure ulcer stage: with fat layer exposed Qualified Code(s): L97.912 - Non-pressure chronic ulcer of unspecified part of right lower leg with fat layer exposed (4) Venous insufficiency: (5) Cellulitis of right lower extremity: CODE(S): L03.115 - Cellulitis of right lower limb (6) Lymphedema: CODE(S): I89.0 - Lymphedema, not elsewhere classified (7) Morbid obesity: CODE(S): E66.01 - Morbid (severe) obesity due to excess calories PLAN: Debridement performed today in clinic as annotated above. Given the duration of the venous leg ulcers and failure of the ulcers to respond to standard wound care, we applied and were approved for Puraply, Nushield, and Apligraf. The patient had previously completed 6 applications of Puraply to the posterior RLE ulcer. Puraply was then discontinued due to failure of the wound to improve in size and appearance, which I suspect was due to the patient's inability to tolerate thorough debridement and refusal to appropriately utilize compression. With an increase in the use of her lymphedema pumps and multiple approaches to wound debridement, the patient's wound sizes improved and bioburden was reduced, and she is now able to better tolerate debridement of her posterior RLE ulcer. Advanced skin substitutes were again applied for and approved. Of the 10 approved applications, she received 1 Puraply application, 5/5 Apligraf applications, and 4 Nushield applications. Aquacel Ag was applied to the posterior RLE ulcer today. Devika was applied to the anterior RLE ulcer today. At home wound-care instructions: For posterior RLE ulcer: Perform Aquacel Ag dressing changes daily. Wash wounds prior to each dressing change, using antibacterial soap and water; rinse and dry thoroughly. For anterior RLE ulcer: Perform Devika dressing changes daily. Wash wounds with dressing changes, using antibacterial soap and water, rinse and dry thoroughly before each dressing change. Continue calmoseptine to the anterior periulcer area for skin irritation/excoriation, so long as it does not interfere with keeping the dressings clean. Compression: As previously discussed, lymphedema pumps should be utilized for 1 hour 3 times per day. If this is not well-tolerated, the patient should continue to use the pumps as long and as frequently as possible, working toward this goal. Due to difficulty fitting her legs into the lymphedema pumps, it is recommended that she begin using the lymphedema pumps first thing in the morning. She reports she is working with the company to obtain a bigger size and/or a new pump if necessary. At this time, we were told by [facility] that they have no compression available in the patient's size. We will look into customizable sizing options. In the meantime, the patient is advised to utilize her thigh-high CircAid's in the evenings and use her lymphedema pumps 3 times daily beginning first thing in the morning in efforts to reduce the swelling/circumference of her legs and enable her to obtain knee-high CircAid's. We can remeasure leg circumference at each visit. Off-loading: The patient was instructed to avoid pressure and friction on the affected areas. Reposition every 2 hours at minimum. Avoid prolonged standing and/or dangling of legs. When seated, feet should be elevated at chest level. Frequent ambulation is encouraged. Diet: Patient encouraged to increase protein intake while taking caution to avoid high carbohydrate and/or sugar intake. Labs/cultures/imaging: Most recent cultures (07/17/2020) were significant only for rare Enterobacter cloacae complex and rare corynebacterium striatum. She has completed 3 weeks of Levaquin 500 mg daily for her right medial thigh erythema and warmth, which is improved today. No antibiotics necessary today. Venous and arterial studies ordered today and discussed with patient the importance of these studies in wound management. She continues to express reluctance. Follow-up: Return to clinic next Monday for re-evaluation with Dr. Milan. Return sooner or report to the emergency room should symptoms worsen, or new symptoms arise. Note: Ep[employer] speech recognition site superintendent software was used to create portions of this document. Sound-alike and misspelled words, as well as other site superintendent errors may be contained in the documentation.
[2020-09-22 15:31] VITALS: BP 198/94; PULSE 62; RESP 24; TEMP 37; BMI 49.0
== END 2020-09-30 23:59 ==
LOC: WC 15:30
PROVIDERS: PCP Family Medicine; Referring Provider Family Medicine; Visit Provider Nurse Practitioner Family
DX: I83.018 Varicose veins of right lower extremity with ulcer other part of lower leg (principal); L97.812 Non-pressure chronic ulcer of other part of right lower leg with fat layer exposed; L03.115 Cellulitis of right lower limb; I89.0 Lymphedema, not elsewhere classified; I48.91 Unspecified atrial fibrillation; E03.9 Hypothyroidism, unspecified; Z91.19 Patient's noncompliance with other medical treatment and regimen; E66.01 Morbid (severe) obesity due to excess calories; Z68.42 Body mass index [BMI] 45.0-49.9, adult; Z79.01 Long term (current) use of anticoagulants; Z79.899 Other long term (current) drug therapy
CPT/HCPCS: 11042

== ENCOUNTER 2020-10-23 08:00 | Outpatient (RCR) | payer MEDICAID, SELFPAY ==
[2020-10-01 00:15] VITALS: BP 198/94; PULSE 62; RESP 24; TEMP 37
[2020-10-23 07:59] VITALS: TEMP 36.1; BMI 49.0
== END 2020-10-31 23:59 ==
LOC: WC 08:00
PROVIDERS: PCP Family Medicine; Referring Provider Family Medicine; Visit Provider Nurse Practitioner Family
DX: I83.018 Varicose veins of right lower extremity with ulcer other part of lower leg (principal); L97.812 Non-pressure chronic ulcer of other part of right lower leg with fat layer exposed; I89.0 Lymphedema, not elsewhere classified; L03.115 Cellulitis of right lower limb; I48.91 Unspecified atrial fibrillation; I10 Essential (primary) hypertension; E03.9 Hypothyroidism, unspecified; G47.30 Sleep apnea, unspecified; F32.9 Major depressive disorder, single episode, unspecified; F41.9 Anxiety disorder, unspecified; E66.01 Morbid (severe) obesity due to excess calories; Z68.42 Body mass index [BMI] 45.0-49.9, adult; Z79.01 Long term (current) use of anticoagulants; Z79.890 Hormone replacement therapy; Z79.899 Other long term (current) drug therapy; Z86.718 Personal history of other venous thrombosis and embolism
CPT/HCPCS: 11042; 11045; 99213; G0463

== ENCOUNTER 2020-11-20 08:30 | Outpatient (RCR) | payer MEDICAID, SELFPAY ==
--- NOTE | 2020-10-23 12:05 | PCM.WC.HP ---
History of Present Illness Date of Service: 10/23/20 Chief Complaint: Ulcers of right lower extremity History of Wound: To[facility] for evaluation and treatment of bilateral lower leg ulcers. The patient is [facility] treatment of prior lower extremity ulcers. She has a PMH significant for chronic lymphedema, venous insufficiency, atrial fibrillation (on Eliquis), morbid obesity, and hypothyroidism. She reported development of her posterior right lower leg ulcer in April 2019. She initially was using Manuka honey to this ulcer, but then started using Vaseline instead. She reported her anterior right lower extremity ulcer developed in August, and she had been applying Vaseline to this daily. Her anterior left lower extremity ulcer developed approximately 1 week prior to her initial January 2020 appt, and she had been applying Vaseline to this daily as well. She notes that approximately 4 to 6 weeks prior, the ulcer on her posterior right lower leg began increasing in soreness. She has lymphedema pumps at home, but had not been using these due to reported pain with use which is related to her ulcers. She does not use compression at home. She reports frequent dangling of her legs while seated at her computer for work. She does not frequently elevate her feet when seated. The patient denied any fever, chills, nausea, vomiting, or diarrhea on initial evaluation. She denied any increasing redness or swelling of the affected area at that time as well. She did note foul-smelling drainage from her right lower extremity. She had not been on any recent antibiotics prior to evaluation. She reported having lab work done approximately 6 weeks prior; these records were requested for review multiple times but never obtained. Lab work was ordered and completed in February 2020 and was significant for the following: CBCD: RBC 3.83 (L), hemoglobin 11.3 (L), hematocrit 34.8 (L), platelets 143 (L) ESR: 93 (H) CMP: Albumin 3.0 (L) CRP: 111 (H) Prealbumin 18.6 (L) She had lower extremity arterial studies completed 05/16/16 which showed relatively normal arterial perfusion to ankle level bilaterally. Triphasic waveforms were noted at ankle level bilaterally. Resting ankle-brachial indices were bilaterally normal. The right digital-brachial index is normal, consistent with normal arterial perfusion at distal, small-vessel level in the right lower extremity. The left digital-brachial index is mildly diminished, suggesting the presence of mild, distal, small-vessel arterial occlusive disease in the left lower extremity. Venous and arterial studies were ordered on 09/11/2020, and the patient was scheduled for an appointment in September for these tests. However the tests were never completed. The patient has continually expressed reluctance regarding wound work-up, and noncompliance with orders. Wound cultures collected on 01/03/2020 were positive for 3+ Aeromonas hydrophilia/caviae, 2+ Citrobacter braakii, 1+ Proteus mirabilis, rare Staphylococus aureus, anaerobic cocci, actinomyces odontolyticus, Bacteroides fragilis; beta-lactamase positive. She completed courses of Levaquin and Augmentin. Weeks later, she developed redness and warmth of a localized lymphedema mass of her right medial thigh; this resolved following a 14-day course of Levaquin and Augmentin. She has continued to have fluctuating redness and warmth of this right medial thigh lymphedema mass. She has completed several courses of antibiotics. Keflex and Levaquin have been of benefit. Doxycycline was not felt to be of significant benefit. A referral to a lymphedema specialist at the [facility] was made, and the importance of scheduling this appointment was discussed with the patient. She has not yet scheduled this appointment. Several conversations have been had with the patient regarding her need for compression and lymphedema management in order for her wounds to heal. She refuses compression. She is noncompliant with elevating her legs. She states she is unable to use her lymphedema pumps at this time due to the size of her legs. Since January 2020, several wound care treatments have been utilized, including Aquacel, Aquacel Ag, Devika. She has completed several applications of advanced skin substitutes (Apligraf, Puraply, and Nushield). She returns today for reevaluation of her right lower extremity ulcers. It has been a month since she has been at the wound healing center for debridement/evaluation. Her wounds have worsened in appearance. She has erythema and excoriation surrounding both the posterior RLE ulcer in the anterior RLE ulcer. She reports an increase in drainage from her ulcers. Her drainage is nonpurulent. She denies any recent fevers, malaise, or poor appetite. [facility] Medical History (Updated 09/11/20 @ 09:17 by Lula Huggins CANDY DEPARTMENT MANAGER, CANDY DEPARTMENT MANAGER-C) Anxiety Carpal tunnel syndrome Cellulitis of right thigh Depression H/O blood clots HTN (hypertension) Hypothyroidism IBS (irritable bowel syndrome) Nonhealing ulcer of right lower extremity Sleep apnea Stomach ulcer UTI (urinary tract infection) Vitamin deficiency Home Medications carvedilol 25 mg PO BID 10/15/14 [History Last Taken Unknown] losartan 25 mg PO DAILY 10/15/14 [History Last Taken Unknown] sssxulie-ajw-uszv-FA-lutein 1 ea PO DAILY 05/11/16 [History Last Taken Unknown] apixaban 5 mg tablet 5 mg PO BID 01/11/18 [History Last Taken Unknown] bupropion HCl 150 mg 24 hr tablet, extended release 300 mg PO QAM tab 01/11/18 [History Last Taken Unknown] levothyroxine 175 mcg tablet 175 mcg PO .COMPLEX #48 tab 01/11/18 [Rx Last Taken Unknown] levofloxacin 500 mg PO DAILY 7 Days #7 tab 09/04/20 [Rx Last Taken Unknown] Allergy/AdvReac Type Severity Reaction Status Date / Time adhesive tape Allergy Unknown Unknown Verified 01/03/20 08:46 Family History Mother Colon cancer Father Melanoma Surgical History (Updated 01/31/18 @ 09:[address] Malcom Worthy MD) H/O dilation and curettage Social History (Updated 01/17/18 @ 20:15 by Arleth Conway CANDY DEPARTMENT MANAGER, CANDY DEPARTMENT MANAGER-C) Smoking Status: Never smoker second hand exposure: No alcohol intake: never substance use type: does not use ROS Constitutional Constitutional: Denies chills, fever(s) or night sweats Eyes Eyes: Denies change in vision or double vision ENT HEENT: Denies lip swelling or tongue swelling Cardiovascular Cardiovascular: Reports leg edema, leg ulcers and pedal edema; Denies chest pain or palpitations Respiratory/Chest Respiratory/Chest: Denies cough, shortness of breath at rest, shortness of breath with exertion or wheezing Gastrointestinal Gastrointestinal: Denies diarrhea, nausea or vomiting Genitourinary Genitourinary: Denies dysuria or hematuria Musculoskeletal Musculoskeletal: Denies abnormal gait, muscle weakness, numbness or tingling Integumentary Integumentary: Reports dry skin, rash and skin ulcer Neurologic Neurologic: Denies abnormal gait, abnormal speech or focal weakness Endocrine Endocrinology: Denies polydipsia or polyuria Hematologic/Lymphatic Hematologic/Lymphatic: Denies easy bleeding or easy bruising Vital Signs Vital Signs Vital Signs: Weight Body Mass Index (BMI) 49.0 Physical Exam Const alert and no apparent distress General Appearance: cooperative, comfortable and well kempt Nutritional Appearance: morbidly obese HEENT Head and Scalp: normocephalic and atraumatic Eyes EOMs intact bilaterally Neck supple Lymph Lymphatic: lymphedema severe (bilateral lower extremities) Resp normal respiratory effort, normal air movement and no use of accessory muscles Auscultation: clear to auscultation bilaterally; Negative for crackles, rales, rhonchi or wheezes Cardio regular rate and regular rhythm Peripheral Pulses: dorsalis pedis pulses present right 2+ GI non-distended Extremity normal capillary refill and no joint enlargement General Extremity: edema bilateral lower extremity Details: moderate; Negative for clubbing or cyanosis Peripheral Pulses: Yes dorsalis pedis pulses present bilateral 2+ Skin Wounds: wounds noted drainage serosanguineous, No malodorous, no odor and surrounding erythema Wound Narrative: RLE anterior ulcer with moderate amount of slough and devitalized tissue present. Small amount of good granulation tissue present. Mild periulcer warmth. Periulcer erythema and excoriation present. No purulent/malodorous drainage. No tunneling, undermining, or probing to bone. RLE posterior ulcer with large amount of slough and devitalized tissue present. Significant periulcer erythema and excoriation present. Mild periulcer warmth. No purulent/malodorous drainage. No tunneling, undermining, or probing to bone. Neuro oriented x3, moves all extremities and no focal motor deficits Psych mental status grossly normal, cooperative and affect normal Debridement Note Debridement Note Wound debrided: RLE anterior ulcer Laterality: Right Type of Debridement: Excisional debridement Anesthesia Used: 5% Lidocaine Gel and Cetacaine Depth: in the subcutaneous layer Percentage of wound debrided: 100 Instrument Used: 7mm curette Tissue Removed: Slough and devitalized tissue Severity: Fat Layer Exposed Amount of bleeding with debridement: Moderate Bleeding Controlled with: Pressure Patient tolerated procedure: Patient tolerated procedure well Additional Wound Wound debrided: RLE posterior ulcer Laterality: Right Type of Debridement: Excisional debridement Anesthesia Used: 5% Lidocaine Gel and Cetacaine Depth: in the subcutaneous layer Percentage of wound debrided: 100 Instrument Used: 7mm curette Tissue Removed: Slough and devitalized tissue Severity: Fat Layer Exposed Amount of bleeding with debridement: Moderate Bleeding Controlled with: Pressure Patient tolerated procedure: Patient did not tolerate procedure well Charges/Coding Visit Charges Office Visits / Consults: [id number] OV L4 Est Procedures Integumentary [id number]: [id number] Shante subq tissue 20 sq cm/< Assessment/Plan Assessment/Plan (1) Ulcer of right lower extremity with fat layer exposed: CODE(S): L97.912 - Non-pressure chronic ulcer of unspecified part of right lower leg with fat layer exposed (2) Venous ulcer of right leg: CODE(S): I83.019 - Varicose veins of right lower extremity with ulcer of unspecified site; L97.919 - Non-pressure chronic ulcer of unspecified part of right lower leg with unspecified severity (3) Nonhealing ulcer of right lower extremity: CODE(S): L97.919 - Non-pressure chronic ulcer of unspecified part of right lower leg with unspecified severity QUALIFIERS: Non-pressure ulcer stage: with fat layer exposed Qualified Code(s): L97.912 - Non-pressure chronic ulcer of unspecified part of right lower leg with fat layer exposed (4) Venous insufficiency: (5) Cellulitis of right lower extremity: CODE(S): L03.115 - Cellulitis of right lower limb (6) Lymphedema: CODE(S): I89.0 - Lymphedema, not elsewhere classified (7) Morbid obesity: CODE(S): E66.01 - Morbid (severe) obesity due to excess calories PLAN: Debridement performed today in clinic as annotated above. Given the duration of the venous leg ulcers and failure of the ulcers to respond to standard wound care, we applied and were approved for Puraply, Nushield, and Apligraf. The patient had previously completed 6 applications of Puraply to the posterior RLE ulcer. Puraply was then discontinued due to failure of the wound to improve in size and appearance, which I suspect was due to the patient's inability to tolerate thorough debridement and refusal to appropriately utilize compression/leg elevation. With an increase in the use of her lymphedema pumps and multiple approaches to wound debridement, the patient's wound sizes improved and bioburden was reduced. Advanced skin substitutes were again applied for and approved. Of the 10 approved applications, she received 1 Puraply application, 5/5 Apligraf applications, and 4 Nushield applications. Aquacel Ag was applied to the posterior RLE ulcer today. A super sorb dressing was placed atop for moisture control. Slightly moistened Devika was applied to the anterior RLE ulcer today. Gauze and foam dressing were placed atop. At home wound-care instructions: For posterior RLE ulcer: Perform Aquacel Ag dressing changes daily. Wash wound prior to each dressing change, using antibacterial soap and water; rinse and dry thoroughly. Cover with super sorb dressing for moisture control. For anterior RLE ulcer: Perform slightly moistened Devika dressing changes daily. Wash wound prior to each dressing change, using antibacterial soap and water; rinse and dry thoroughly. Cover with gauze and foam dressing. Continue calmoseptine to the anterior periulcer area for skin irritation/excoriation, so long as it does not interfere with keeping the dressings clean. Compression: As previously discussed, lymphedema pumps should be utilized for 1 hour 3 times per day. If this is not well-tolerated, the patient should continue to use the pumps as long and as frequently as possible, working toward this goal. Due to difficulty fitting her legs into the lymphedema pumps, it is recommended that she begin using the lymphedema pumps first thing in the morning. She reports she is working with the company to obtain a bigger size and/or a new pump if necessary. At this time, we were told by [facility] that they have no compression available in the patient's size. We will look into customizable sizing options. In the meantime, the patient is advised to utilize her thigh-high CircAid's in the evenings and use her lymphedema pumps 3 times daily beginning first thing in the morning in efforts to reduce the swelling/circumference of her legs and enable her to obtain knee-high CircAid's. Despite numerous discussions and approaches to compression and edema reduction, the patient has been noncompliant. Off-loading: The patient was instructed to avoid pressure and friction on the affected areas. Reposition every 2 hours at minimum. Avoid prolonged standing and/or dangling of legs. When seated, feet should be elevated at chest level. Frequent ambulation is encouraged. Diet: Patient encouraged to increase protein intake while taking caution to avoid high carbohydrate and/or sugar intake. Labs/cultures/imaging: Repeat cultures ordered today due to worsening of wounds. Venous and arterial studies were previously ordered in September 2020, though the patient never had these done. Given the patient's delayed healing, a wound biopsy was recommended today to evaluate for other potential causes for delayed healing. The patient refuses a biopsy today. Follow-up: Return to clinic in 2 weeks for reevaluation. Return sooner or report to the emergency room should symptoms worsen, or new symptoms arise. fitness services manager will contact [facility] to reach out to patient to schedule lymphedema evaluation and surgical consult. Note: [employer] speech recognition hair designer software was used to create portions of this document. Sound-alike and misspelled words, as well as other hair designer errors may be contained in the documentation.
[2020-11-06 08:05] VITALS: RESP 18; TEMP 36.3; BMI 49.0
[2020-11-20 08:29] VITALS: BP 149/93; PULSE 69; TEMP 36.2; BMI 49.0
--- NOTE | 2020-11-20 12:14 | PN.PCM_ITS ---
History of Present Illness Date of Service: 11/20/20 Chief Complaint: Ulcers of right lower extremity History of Wound: To[facility] for evaluation and treatment of bilateral lower leg ulcers. The patient is [facility] treatment of prior lower extremity ulcers. She has a PMH significant for chronic lymphedema, venous insufficiency, atrial fibrillation (on Eliquis), morbid obesity, and hypothyroidism. She reported development of her posterior right lower leg ulcer in April 2019. She initially was using Manuka honey to this ulcer, but then started using Vaseline instead. She reported her anterior right lower extremity ulcer developed in August, and she had been applying Vaseline to this daily. Her anterior left lower extremity ulcer developed approximately 1 week prior to her initial January 2020 appt, and she had been applying Vaseline to this daily as well. She notes that approximately 4 to 6 weeks prior, the ulcer on her posterior right lower leg began increasing in soreness. She has lymphedema pumps at home, but had not been using these due to reported pain with use which is related to her ulcers. She does not use compression at home. She reports frequent dangling of her legs while seated at her computer for work. She does not frequently elevate her feet when seated. The patient denied any fever, chills, nausea, vomiting, or diarrhea on initial evaluation. She denied any increasing redness or swelling of the affected area at that time as well. She did note foul-smelling drainage from her right lower extremity. She had not been on any recent antibiotics prior to evaluation. She reported having lab work done approximately 6 weeks prior; these records were requested for review multiple times but never obtained. Lab work was ordered and completed in February 2020 and was significant for the following: CBCD: RBC 3.83 (L), hemoglobin 11.3 (L), hematocrit 34.8 (L), platelets 143 (L) ESR: 93 (H) CMP: Albumin 3.0 (L) CRP: 111 (H) Prealbumin 18.6 (L) She had lower extremity arterial studies completed 05/16/16 which showed relatively normal arterial perfusion to ankle level bilaterally. Triphasic waveforms were noted at ankle level bilaterally. Resting ankle-brachial indices were bilaterally normal. The right digital-brachial index is normal, consistent with normal arterial perfusion at distal, small-vessel level in the right lower extremity. The left digital-brachial index is mildly diminished, suggesting the presence of mild, distal, small-vessel arterial occlusive disease in the left lower extremity. Venous and arterial studies were ordered on 09/11/2020, and the patient was scheduled for an appointment in September for these tests. However the tests were never completed. The patient has continually expressed reluctance regarding wound work-up, and noncompliance with orders. Wound cultures collected on 01/03/2020 were positive for 3+ Aeromonas hydrophilia/caviae, 2+ Citrobacter braakii, 1+ Proteus mirabilis, rare Staphylococus aureus, anaerobic cocci, actinomyces odontolyticus, Bacteroides fragilis; beta-lactamase positive. She completed courses of Levaquin and Augmentin. Weeks later, she developed redness and warmth of a localized lymphedema mass of her right medial thigh; this resolved following a 14-day course of Levaquin and Augmentin. She has continued to have fluctuating redness and warmth of this right medial thigh lymphedema mass. She has completed several courses of antibiotics. Keflex and Levaquin have been of benefit. Doxycycline was not felt to be of significant benefit. A referral to a lymphedema specialist at the [facility] was made, and the importance of scheduling this appointment was discussed with the patient. She has not yet scheduled this appointment. Several conversations have been had with the patient regarding her need for compression and lymphedema management in order for her wounds to heal. She refuses compression. She is noncompliant with elevating her legs. She states she is unable to use her lymphedema pumps at this time due to the size of her legs. Since January 2020, several wound care treatments have been utilized, including Aquacel, Aquacel Ag, Devika. She has completed several applications of advanced skin substitutes (Apligraf, Puraply, and Nushield). Progress of Wound: She returns today for reevaluation of her right lower extremity ulcers. Her ulcers remained stable in size and appearance. She has erythema and excoriation surrounding both the posterior RLE ulcer and anterior RLE ulcer, which I suspect is due to increased moisture trapping. She reports an increase in drainage from her ulcers. Her drainage is nonpurulent and is not malodorous. She denies any recent fevers, malaise, or poor appetite. She is not using compression or lymphedema pumps. She is not elevating her legs. She has an upcoming appointment with vascular at [facility] for a lymphedema evaluation on 12/08/2020. Objective Data Objective Data Vital Signs: Vital Signs Temp Pulse Resp BP 97.2 F L 69 18 149/93 H 11/20/20 08:29 11/20/20 08:29 11/06/20 08:05 11/20/20 08:29 Body Mass Index (BMI) 49.0 Lab / Micro Data Micro: Microbiology 10/23/20 08:30 Wound Abcess - Leg, Right Gram Stain - Final 10/23/20 08:30 Wound Abcess - Leg, Right Wound Culture - Final Enterobacter cloacae complex Proteus vulgaris Meth. resistant Staph. aureus Corynebacterium striatum 10/23/20 08:30 Wound Abcess - Leg, Right Anaerobic Culture - Final No anaerobic bacteria isolated. Charges/Coding Procedures Integumentary [id number]: [id number] Shante subq tissue 20 sq cm/< Add On Codes: 37541 Shante subq tissue add-on Physical Exam Const alert and no apparent distress General Appearance: cooperative, comfortable and well kempt Nutritional Appearance: morbidly obese HEENT Head and Scalp: normocephalic and atraumatic Neck supple Lymph Lymphatic: lymphedema severe (bilateral lower extremities) Resp normal respiratory effort, normal air movement and no use of accessory muscles Cardio Peripheral Pulses: dorsalis pedis pulses present right 2+ Extremity normal capillary refill and no joint enlargement General Extremity: edema bilateral lower extremity Details: severe; Negative for clubbing or cyanosis Peripheral Pulses: Yes dorsalis pedis pulses present bilateral 2+ Skin Wounds: wounds noted drainage serosanguineous, No malodorous, no odor and surrounding erythema Wound Narrative: RLE anterior ulcer with moderate amount of slough and devitalized tissue present. Small amount of good granulation tissue present. Mild periulcer warmth. Periulcer erythema and excoriation present. No purulent/malodorous drainage. No tunneling, undermining, or probing to bone. RLE posterior ulcer with large amount of slough and devitalized tissue present. Significant periulcer erythema and excoriation present. Mild periulcer warmth. No purulent/malodorous drainage. No tunneling, undermining, or probing to bone. Neuro oriented x3, moves all extremities and no focal motor deficits Psych mental status grossly normal, cooperative and affect normal Debridement Note Debridement Note Post-Debridement Measurements and Additional Note: Post-Debridement Measurements/Treatment WC - Nurse 1 - General Ulcer Assessment Start: 11/06/20 08:02 Freq: Status: Active Protocol: SAL Activity Type Activity Date Activity User E-Sign Co-Sign Detail Recorded Client Recorded Date Recorded By Document 11/06/20 08:05 PL [id number] 11/06/20 08:13 PL Document 11/20/20 08:29 AK [id number] 11/20/20 08:34 AK 11/06/20 11/20/20 08:05 08:29 WC - Today's Visit Information Type of service Follow-up Visit Follow-up Visit (Physician/STANDPIPE TENDER (Physician/STANDPIPE TENDER ) ) Arrival Mode Ambulatory Ambulatory Transfer Assistance None Patient Identification Verified (Name & Yes Yes ) Patient Requires Transmission-Based No Precautions Safety Precautions NA Height and Weight Body Mass Index (BMI) 49.0 49.0 BMI Classification Obese Obese Vital Signs Temperature (97.8 F-99.1 F) 97.4 F L 97.2 F L Temperature Source Temporal Temporal Pulse Rate (60-100) 69 Pulse Location Monitor Respiratory Rate (12-18) 18 Blood Pressure (90/60-120/80) 149/93 H Blood Pressure Mean (mm Hg) 111 Source Monitor Position Sitting Blood Pressure Location Right Arm History Since Last Visit- (Skip if this is Patient's initial visit) Have you changed medications since your No No last visit? Any new allergies or adverse reactions No No Had a fall/change in ADL's that may No No increase risk of falls Signs or symptoms of abuse and/or No No neglect since last visit Have you been in the hospital since your No No last visit? Has dressing in place as prescribed Yes Yes Has compression in place as prescribed N/A N/A Has offloadiing in place as prescribed N/A N/A Experienced any changes in pain level or No No management Left Footwear Regular Shoe Right Footwear Regular Shoe Pain Scale: 0-10 Numeric Is Patient Pain Free? Yes CHRISTIANNE - Nurse 1 - General Ulcer Measurement Start: 11/06/20 08:02 Freq: Status: Active Protocol: Activity Type Activity Date Activity User E-Sign Co-Sign Detail Recorded Client Recorded Date Recorded By Document 11/06/20 08:05 PL [id number] 11/06/20 08:13 PL Document 11/20/20 08:29 AK [id number] 11/20/20 08:34 AK 11/06/20 11/20/20 08:05 08:29 Wound Center Nurse 1 #8 RLE Post -Current Size (cm) - Length 5.5 6.5 -Current Size (cm) - Width 4.5 4 -Current Size (cm) - Depth 0.1 0.1 -Total Square Cm 24.75 26.0 -Photo Taken No -Epithelialization None Present -Tunneling No -Undermining/Tunneling No -Circular Undermining No -Exudate Amt Large Medium -Exudate Type Serosanguineous Serosanguineous -Wound Margin Distinct, Outline Attached -Granulation Amt Small (1-33%) Medium (34-66%) -Granulation Quality [place] Red -Slough/Fibrin Yes -Necrosis Amt Large (67-100%) Medium (34-66%) -Necrotic Tissue Type Adherent Slough Adherent Slough -Texture (Irene-wound Skin Appearance) Assessed, Scarring -Moisture (Irene-wound Skin Appearance) Assessed -Color (Irene-wound Skin Appearance) No Abnormality, Assessed -Temperature (Irene-wound Skin No Abnormality Appearance) (Pt Warm) -Tenderness on Palpation (Irene-wound No Skin Appearance) -Ulcer Cleansing Rinsed/ Irrigated with Saline -Foul Odor after Cleansing No -Anesthetic Used 4% Lidocaine Solution #7 RLE Ant Cluster -Current Size (cm) - Length 2.5 2 -Current Size (cm) - Width 1.0 1.3 -Current Size (cm) - Depth 0.2 0.1 -Total Square Cm 2.50 2.6 -Photo Taken No -Epithelialization None Present -Tunneling No -Undermining/Tunneling No -Exudate Amt Large Small -Exudate Type Serosanguineous Serosanguineous -Wound Margin Distinct, Outline Attached -Granulation Amt Medium (34-66%) Small (1-33%) -Granulation Quality [place] -Slough/Fibrin Yes -Necrosis Amt Medium (34-66%) Small (1-33%) -Necrotic Tissue Type Adherent Slough Adherent Slough -Texture (Irene-wound Skin Appearance) Assessed, Scarring -Moisture (Irene-wound Skin Appearance) Maceration No Abnormality, Assessed -Color (Irene-wound Skin Appearance) No Abnormality, Assessed -Temperature (Irene-wound Skin No Abnormality Appearance) (Pt Warm) -Tenderness on Palpation (Irene-wound No Skin Appearance) -Ulcer Cleansing Rinsed/ Rinsed/ Irrigated with Irrigated with Saline Saline -Foul Odor after Cleansing No No -Anesthetic Used 4% Lidocaine 4% Lidocaine Solution Solution WC - Nurse 2 - General Ulcer CM Notes Start: 11/06/20 08:02 Freq: Status: Active Protocol: Activity Type Activity Date Activity User E-Sign Co-Sign Detail Recorded Client Recorded Date Recorded By Document 11/06/20 13:13 PL [id number] 11/06/20 13:17 PL 11/06/20 13:13 Wound Center Nurse 2 #8 RLE Post -Time 08:21 -Correct Patient Yes -Correct Side, Site, Position Yes -Correct Procedure Yes -Procedure Performed Yes -Type of Procedure Debridement -Clinical Debridement Subcutaneous -Tissue Removed Subcutaneous -Post Debridement (cm) - Length 5.5 -Post Debridement (cm) - Width 5.0 -Post Debridement (cm) - Depth 0.2 -Total Square (Post) (cm) 27.50 -Area of Debridement (cm) - Length 5.5 -Area of Debridement (cm) - Width 5.0 -Total Square (Area) (cm) 27.50 -Tunneling No -Undermining/Tunneling No -Circular Undermining No -Wound/Ulcer Outcome Not Healed -Ulcer Cleansing Rinsed/ Irrigated with Saline -Foul Odor after Cleansing No -Bioengineered Tissue No -Debridement - Subq, 1st 20sq cm Yes -Debridement, SubQ, ea addt'l 20sq cm 1 or part thereof #7 RLE Ant Cluster -Time 08: -Correct Patient Yes -Correct Side, Site, Position Yes -Correct Procedure Yes -Procedure Performed Yes -Type of Procedure Debridement -Clinical Debridement Subcutaneous -Tissue Removed Subcutaneous -Post Debridement (cm) - Length 3.0 -Post Debridement (cm) - Width 1.4 -Post Debridement (cm) - Depth 0.2 -Total Square (Post) (cm) 4.20 -Area of Debridement (cm) - Length 3.0 -Area of Debridement (cm) - Width 1.4 -Total Square (Area) (cm) 4.20 -Tunneling No -Undermining/Tunneling No -Circular Undermining No -Wound/Ulcer Outcome Not Healed -Ulcer Cleansing Rinsed/ Irrigated with Saline -Foul Odor after Cleansing No -Bioengineered Tissue No -Debridement - Subq, 1st 20sq cm No Pain Scale: 0-10 Numeric Is Patient Pain Free? Yes WC - Nurse 3 - General Ulcer D/C NN Start: 11/06/20 08:02 Freq: Status: Active Protocol: Activity Type Activity Date Activity User E-Sign Co-Sign Detail Recorded Client Recorded Date Recorded By Document 11/06/20 13:13 PL [id number] 11/06/20 13:17 PL Document 11/20/20 09:20 DL [id number] 11/20/20 09:22 DL 11/06/20 11/20/20 13:13 09:20 Pain Scale: 0-10 Numeric Is Patient Pain Free? Yes Yes Wound Care Nurse 3 #8 RLE Post -Ulcer Cleansing Rinsed/ Rinsed/ Irrigated with Irrigated with Saline Saline -Foul Odor after Cleansing No No -Primary Dressing Applied Aquacel AG 4x4 Aquacel AG 4x4 -Other Dressing ABD -Primary Dressing Covered/Secured with Dry Gauze & Dry Gauze & Roll Gauze, Roll Gauze, Secured with Secured with Tape Tape -Other Covering Optilock -Aquacel AG 4x4 2 1 #7 RLE Ant Cluster -Ulcer Cleansing Rinsed/ Rinsed/ Irrigated with Irrigated with Saline Saline -Foul Odor after Cleansing No No -Other Dressing aquacel Ag -Primary Dressing Covered/Secured with Dry Gauze & Roll Gauze, Secured with Tape -Other Covering Optilock Treatment Response Procedure Tolerated Well WC - Visit Discharge Discharge Condition Stable Stable Ambulatory Status Ambulatory Ambulatory Transportation Private Auto Private Auto Wound debrided: RLE anterior ulcer Laterality: Right Type of Debridement: Excisional debridement Anesthesia Used: 5% Lidocaine Gel and Cetacaine Depth: in the subcutaneous layer Percentage of wound debrided: 100 Instrument Used: 5mm curette Tissue Removed: Slough and devitalized tissue Severity: Fat Layer Exposed Amount of bleeding with debridement: Mild Bleeding Controlled with: Pressure Patient tolerated procedure: Patient tolerated procedure well Additional Wound Wound debrided: RLE posterior ulcer Laterality: Right Type of Debridement: Excisional debridement Anesthesia Used: 5% Lidocaine Gel and Cetacaine Depth: in the subcutaneous layer Percentage of wound debrided: 100 Instrument Used: 7mm curette Tissue Removed: Slough and devitalized tissue Severity: Fat Layer Exposed Amount of bleeding with debridement: Mild Bleeding Controlled with: Pressure Patient tolerated procedure: Patient tolerated procedure well Assessment/Plan Assessment/Plan (1) Ulcer of right lower extremity with fat layer exposed: CODE(S): L97.912 - Non-pressure chronic ulcer of unspecified part of right lower leg with fat layer exposed (2) Venous ulcer of right leg: CODE(S): I83.019 - Varicose veins of right lower extremity with ulcer of unspecified site; L97.919 - Non-pressure chronic ulcer of unspecified part of right lower leg with unspecified severity (3) Nonhealing ulcer of right lower extremity: CODE(S): L97.919 - Non-pressure chronic ulcer of unspecified part of right lower leg with unspecified severity QUALIFIERS: Non-pressure ulcer stage: with fat layer exposed Q ualified Code(s): L97.912 - Non-pressure chronic ulcer of unspecified part of right lower leg with fat layer exposed (4) Venous insufficiency: (5) Cellulitis of right lower extremity: CODE(S): L03.115 - Cellulitis of right lower limb (6) Lymphedema: CODE(S): I89.0 - Lymphedema, not elsewhere classified (7) Morbid obesity: CODE(S): E66.01 - Morbid (severe) obesity due to excess calories PLAN: Given the duration of the venous leg ulcers and failure of the ulcers to respond to standard wound care, we applied and were approved for Puraply, Nushield, and Apligraf. The patient had previously completed 6 applications of Puraply to the posterior RLE ulcer. Puraply was then discontinued due to failure of the wound to improve in size and appearance, which I suspect was due to the patient's inability to tolerate thorough debridement and refusal to appropriately utilize compression/leg elevation. With an increase in the use of her lymphedema pumps and multiple approaches to wound debridement, the patient's wound sizes improved and bioburden was reduced. Advanced skin substitutes were again applied for and approved. Of the 10 approved applications, she received 1 Puraply application, 5/5 Apligraf applications, and 4 Nushield applications. Her wounds continue to fluctuate in size, which I suspect is in part due to the fluctuation of her edema. Aquacel Ag was applied to the posterior RLE ulcer today. A supersorb dressing was placed atop for moisture control. Aquacel Ag was also applied to the anterior RLE ulcer today. Gauze and foam dressing were placed atop. At home wound-care instructions: For posterior RLE ulcer: Perform Aquacel Ag dressing changes daily. Wash wound prior to each dressing change, using antibacterial soap and water; rinse and dry thoroughly. Cover with super sorb dressing for moisture control. For anterior RLE ulcer: Perform Aquacel Ag dressing changes daily. Wash wound prior to each dressing change, using antibacterial soap and water; rinse and dry thoroughly. Cover with gauze and foam dressing. She was instructed to begin Desitin ointment daily to the periulcer areas for barrier protection due to increased moisture exposure. Change outer wound dressings twice daily if needed due to increased moisture/saturation. Compression: Have discussed with patient several times that lymphedema pumps should be utilized for 1 hour 3 times per day. If this is not well-tolerated, the patient should continue to use the pumps as long and as frequently as possible, working toward this goal. Due to difficulty fitting her legs into the lymphedema pumps, it was recommended that she begin using the lymphedema pumps first thing in the morning. She had reported she was working with the company to obtain a bigger size and/or a new pump if necessary. At this time, we were told by [employer] that they have no compression available in the patient's size. We have been able to find customizable sizing options for compression. The patient was advised to utilize her thigh-high CircAid's in the evenings and use her lymphedema pumps 3 times daily beginning first thing in the morning in efforts to reduce the swelling/circumference of her legs and enable her to obtain knee- high CircAid's. She has not been compliant with this. Despite numerous discussions and approaches to compression and edema reduction, the patient has been noncompliant. Off-loading: The patient was instructed to avoid pressure and friction on the affected areas. Reposition every 2 hours at minimum. Avoid prolonged standing and/or dangling of legs. When seated, feet should be elevated at chest level. Frequent ambulation is encouraged. She has been noncompliant with offloading as well. She frequently is seated in a car or at a desk, and does not elevate her feet. Diet: Patient encouraged to increase protein intake while taking caution to avoid high carbohydrate and/or sugar intake. Labs/cultures/imaging: Her wound culture from 10/23/2020 was positive for 1+ Enterobacter cloacae complex, rare Proteus vulgaris, rare MRSA, and 1+ corynebacterium striatum. She was given a course of Levaquin 500 mg daily x10 days, which she has completed. No clinical concern for infection today. Venous and arterial studies were previously ordered in September 2020, though the patient never had these done. Given the patient's delayed healing, a wound biopsy was recommended on multiple occasions to evaluate for other potential causes for delayed healing; the patient refused. Follow-up: Consult with lymphedema specialist at [facility] on 12/08/2020 as scheduled. Return to clinic in 3 weeks for reevaluation. Return sooner or report to the emergency room should symptoms worsen, or new symptoms arise. It has been discussed with the patient that if lymphedema consultation does not provide additional/alternative strategies for managing her wounds we may need a surgery consult. It has been emphasized that previous and current wound management efforts have not been effective, and this is largely in part to her uncontrolled lymphedema/edema. It has been discussed with the patient that the ongoing wounds of her right lower extremity are predisposing her to risk for infection, sepsis, and ultimately she is at risk of amputation. Note: [employer] speech recognition steam flattener software was used to create portions of this document. Sound-alike and misspelled words, as well as other steam flattener errors may be contained in the documentation.
== END 2020-12-01 23:59 ==
LOC: WC 08:30
PROVIDERS: PCP Family Medicine; Visit Provider Nurse Practitioner Family
DX: I83.018 Varicose veins of right lower extremity with ulcer other part of lower leg (principal); L97.812 Non-pressure chronic ulcer of other part of right lower leg with fat layer exposed; L03.115 Cellulitis of right lower limb; I89.0 Lymphedema, not elsewhere classified; I87.2 Venous insufficiency (chronic) (peripheral); R60.9 Edema, unspecified; I10 Essential (primary) hypertension; E03.9 Hypothyroidism, unspecified; K58.9 Irritable bowel syndrome, unspecified; G47.30 Sleep apnea, unspecified; F32.9 Major depressive disorder, single episode, unspecified; F41.9 Anxiety disorder, unspecified; E66.01 Morbid (severe) obesity due to excess calories; Z91.19 Patient's noncompliance with other medical treatment and regimen; Z79.01 Long term (current) use of anticoagulants; Z79.890 Hormone replacement therapy; Z79.899 Other long term (current) drug therapy; Z87.11 Personal history of peptic ulcer disease
CPT/HCPCS: 11042; 11045; 87070; 87075; 87077; 87186; 87205

== ENCOUNTER 2020-12-11 08:15 | Outpatient (RCR) | payer MEDICAID, SELFPAY ==
[2020-12-02 00:16] VITALS: BP 149/93; PULSE 69; RESP 18; TEMP 36.2; BMI 49.0
[2020-12-11 08:25] VITALS: BP 154/92; TEMP 36; BMI 49.0
--- NOTE | 2020-12-11 12:36 | PN.PCM_ITS ---
History of Present Illness Date of Service: 12/11/20 Chief Complaint: Ulcers of right lower extremity History of Wound: [facility] for evaluation and treatment of bilateral lower leg ulcers. The patient is [facility] treatment of prior lower extremity ulcers. She has a PMH significant for chronic lymphedema, venous insufficiency, atrial fibrillation (on Eliquis), morbid obesity, and hypothyroidism. She reported development of her posterior right lower leg ulcer in April 2019. She initially was using Manuka honey to this ulcer, but then started using Vaseline instead. She reported her anterior right lower extremity ulcer developed in August, and she had been applying Vaseline to this daily. Her anterior left lower extremity ulcer developed approximately 1 week prior to her initial January 2020 appt, and she had been applying Vaseline to this daily as well. She notes that approximately 4 to 6 weeks prior, the ulcer on her posterior right lower leg began increasing in soreness. She has lymphedema pumps at home, but had not been using these due to reported pain with use which is related to her ulcers. She does not use compression at home. She reports frequent dangling of her legs while seated at her computer for work. She does not frequently elevate her feet when seated. The patient denied any fever, chills, nausea, vomiting, or diarrhea on initial evaluation. She denied any increasing redness or swelling of the affected area at that time as well. She did note foul-smelling drainage from her right lower extremity. She had not been on any recent antibiotics prior to evaluation. She reported having lab work done approximately 6 weeks prior; these records were requested for review multiple times but never obtained. Lab work was ordered and completed in February 2020 and was significant for the following: CBCD: RBC 3.83 (L), hemoglobin 11.3 (L), hematocrit 34.8 (L), platelets 143 (L) ESR: 93 (H) CMP: Albumin 3.0 (L) CRP: 111 (H) Prealbumin 18.6 (L) She had lower extremity arterial studies completed 05/16/16 which showed relatively normal arterial perfusion to ankle level bilaterally. Triphasic waveforms were noted at ankle level bilaterally. Resting ankle-brachial indices were bilaterally normal. The right digital-brachial index is normal, consistent with normal arterial perfusion at distal, small-vessel level in the right lower extremity. The left digital-brachial index is mildly diminished, suggesting the presence of mild, distal, small-vessel arterial occlusive disease in the left lower extremity. Venous and arterial studies were ordered on 09/11/2020, and the patient was scheduled for an appointment in September for these tests. However the tests were never completed. The patient has continually expressed reluctance regarding wound work-up, and noncompliance with orders. Wound cultures collected on 01/03/2020 were positive for 3+ Aeromonas hydrophilia/caviae, 2+ Citrobacter braakii, 1+ Proteus mirabilis, rare Staphylococus aureus, anaerobic cocci, actinomyces odontolyticus, Bacteroides fragilis; beta-lactamase positive. She completed courses of Levaquin and Augmentin. Weeks later, she developed redness and warmth of a localized lymphedema mass of her right medial thigh; this resolved following a 14-day course of Levaquin and Augmentin. She has continued to have fluctuating redness and warmth of this right medial thigh lymphedema mass. She has completed several courses of antibiotics. Keflex and Levaquin have been of benefit. Doxycycline was not felt to be of significant benefit. A referral to a lymphedema specialist at the [facility] was made, and the importance of scheduling this appointment was discussed with the patient. She has not yet scheduled this appointment. Several conversations have been had with the patient regarding her need for compression and lymphedema management in order for her wounds to heal. She refuses compression. She is noncompliant with elevating her legs. She states she is unable to use her lymphedema pumps at this time due to the size of her legs. Since January 2020, several wound care treatments have been utilized, including Aquacel, Aquacel Ag, Devika. She has completed several applications of advanced skin substitutes (Apligraf, Puraply, and Nushield). Progress of Wound: The patient returns today for reevaluation of her right lower extremity ulcers. Her posterior RLE ulcer is improved in size and appearance. Her anterior RLE ulcer is stable. She has a new anterior RLE ulcer proximal to her existing RLE ulcer. She has erythema and excoriation surrounding her ulcers, which I suspect is due to increased moisture trapping. She denies an increase in drainage from her ulcers. She denies any recent fevers, malaise, or poor appetite. She reports she has been using her lymphedema pumps 2-3 times per week in recent weeks. She is using these for 4 hours at a time, as she falls asleep with them on. She has rescheduled her appointment with vascular at the [facility] for 01/14/2021. Objective Data Objective Data Vital Signs: Vital Signs Temp Pulse Resp BP 96.8 F L 69 18 154/92 H 12/11/20 08:25 12/02/20 00:16 12/02/20 00:16 12/11/20 08:25 Body Mass Index (BMI) 49.0 Charges/Coding Procedures Integumentary 111xxx-113xx: [id number] Shante subq tissue 20 sq cm/< Physical Exam Const alert and no apparent distress General Appearance: cooperative, comfortable and well kempt Nutritional Appearance: morbidly obese HEENT Head and Scalp: normocephalic and atraumatic Neck supple Lymph Lymphatic: lymphedema severe (worse in RLE) Resp normal respiratory effort, normal air movement and no use of accessory muscles Cardio Peripheral Pulses: dorsalis pedis pulses present right 2+ Extremity normal capillary refill and no joint enlargement General Extremity: edema bilateral lower extremity Details: severe; Negative for clubbing or cyanosis Peripheral Pulses: Yes dorsalis pedis pulses present bilateral 2+ Skin Wounds: wounds noted drainage serosanguineous, No malodorous, no odor and surrounding erythema Wound Narrative: New proximal anterior RLE ulcer. Moderate amount of slough and devitalized tissue present. No periulcer warmth. Periulcer erythema and excoriation present. No purulent/malodorous drainage. No tunneling, undermining, or probing to bone. RLE anterior ulcer with moderate amount of slough and devitalized tissue present. Small amount of good granulation tissue present. No periulcer warmth. Periulcer erythema and excoriation present. No purulent/malodorous drainage. No tunneling, undermining, or probing to bone. RLE posterior ulcer with large amount of slough and devitalized tissue present. Moderate periulcer erythema and excoriation present. No periulcer warmth. No purulent/malodorous drainage. No tunneling, undermining, or probing to bone. Neuro oriented x3, moves all extremities and no focal motor deficits Psych mental status grossly normal, cooperative and affect normal Debridement Note Debridement Note Wound debrided: RLE anterior ulcer (distal) Laterality: Right Type of Debridement: Excisional debridement Anesthesia Used: 4% Lidocaine Solution and Cetacaine Depth: in the subcutaneous layer Percentage of wound debrided: 100 Instrument Used: 5mm curette Tissue Removed: Slough and devitalized tissue Severity: Fat Layer Exposed Amount of bleeding with debridement: Mild Bleeding Controlled with: Pressure Patient tolerated procedure: Patient tolerated procedure well Post-Debridement Measurements and Additional Note: Post-Debridement Measurements/Treatment - Nurse 1 - General Ulcer Assessment Start: 12/11/20 08:25 Freq: Status: Active Protocol: SAL Activity Type Activity Date Activity User E-Sign Co-Sign Detail Recorded Client Recorded Date Recorded By Document 12/11/20 08:25 RAMON [id number] 12/11/20 08:32 RAMON 12/11/20 08:25 CHRISTIANNE - Today's Visit Information Type of service Follow-up Visit (Physician/NATUROPATHIC ONCOLOGY PROVIDER ) Arrival Mode Ambulatory Patient Identification Verified (Name & Yes ) Height and Weight Body Mass Index (BMI) 49.0 BMI Classification Obese Vital Signs Temperature (97.8 F-99.1 F) 96.8 F L Temperature Source Temporal Pulse Location Monitor Blood Pressure (90/60-120/80) 154/92 H Blood Pressure Mean (mm Hg) 112 Source Monitor Position Semi-Fowlers Blood Pressure Location Left Arm History Since Last Visit- (Skip if this is Patient's initial visit) Have you changed medications since your No last visit? Any new allergies or adverse reactions No Had a fall/change in ADL's that may No increase risk of falls Signs or symptoms of abuse and/or No neglect since last visit Have you been in the hospital since your No last visit? Has dressing in place as prescribed Yes Has compression in place as prescribed N/A Has offloadiing in place as prescribed N/A Experienced any changes in pain level or No management Left Footwear Regular Shoe Right Footwear Regular Shoe Pain Scale: 0-10 Numeric Is Patient Pain Free? Yes [facility] Nurse 1 - General Ulcer Measurement Start: 12/11/20 08:25 Freq: Status: Active Protocol: Activity Type Activity Date Activity User E-Sign Co-Sign Detail Recorded Client Recorded Date Recorded By Document 12/11/20 08:25 RAMON [id number] 12/11/20 08:32 RAMON 12/11/20 08:25 Wound Center Nurse 1 #8 RLE Post -Combined with other wound No -Current Size (cm) - Length 3 -Current Size (cm) - Width 3.7 -Current Size (cm) - Depth 0.2 -Total Square Cm 11.1 -Photo Taken No -Tunneling No -Undermining/Tunneling No -Wound Margin Distinct, Outline Attached -Texture (Irene-wound Skin Appearance) Assessed, Scarring -Moisture (Irene-wound Skin Appearance) No Abnormality, Assessed -Color (Irene-wound Skin Appearance) No Abnormality, Assessed -Temperature (Irene-wound Skin No Abnormality Appearance) (Pt Warm) -Tenderness on Palpation (Irene-wound No Skin Appearance) -Ulcer Cleansing Rinsed/ Irrigated with Saline -Foul Odor after Cleansing No -Anesthetic Used 4% Lidocaine Solution #7 RLE Ant Cluster -Current Size (cm) - Length 2.6 -Current Size (cm) - Width 1.2 -Current Size (cm) - Depth 0.1 -Total Square Cm 3.12 -Photo Taken No -Tunneling No -Undermining/Tunneling No -Circular Undermining No -Change in Wound Grade/Stage No -Exudate Amt Medium -Exudate Type Serosanguineous -Wound Margin Distinct, Outline Attached -Granulation Amt None Present (0 %) -Granulation Quality N/A -Slough/Fibrin Yes -Necrosis Amt Medium (34-66%) -Necrotic Tissue Type Adherent Slough -Structure Exposed N/A -Texture (Irene-wound Skin Appearance) Assessed, Scarring -Moisture (Irene-wound Skin Appearance) No Abnormality, Assessed -Color (Irene-wound Skin Appearance) No Abnormality, Assessed -Temperature (Irene-wound Skin No Abnormality Appearance) (Pt Warm) -Tenderness on Palpation (Irene-wound No Skin Appearance) -Ulcer Cleansing Rinsed/ Irrigated with Saline -Foul Odor after Cleansing No -Anesthetic Used 4% Lidocaine Solution WC - Nurse 3 - General Ulcer D/C NN Start: 12/11/20 08:25 Freq: Status: Active Protocol: Activity Type Activity Date Activity User E-Sign Co-Sign Detail Recorded Client Recorded Date Recorded By Document 12/11/20 09:09 RAMON [id number] 12/11/20 09:09 RAMON 12/11/20 09:09 Wound Care Nurse 3 #8 RLE Post -Ulcer Cleansing Rinsed/ Irrigated with Saline -Primary Dressing Applied Aquacel AG 4x4 -Primary Dressing Covered/Secured with Dry Gauze, Secured with Tape -Aquacel AG 4x4 1 #7 RLE Ant Cluster -Primary Dressing Covered/Secured with Dry Gauze, Secured with Tape Pain Scale: 0-10 Numeric Is Patient Pain Free? Yes WC - Visit Discharge Discharge Condition Stable Ambulatory Status Ambulatory Transportation Private Auto Additional Wound Wound debrided: RLE anterior ulcer (proximal) Laterality: Right Type of Debridement: Excisional debridement Anesthesia Used: 4% Lidocaine Solution and Cetacaine Depth: in the subcutaneous layer Percentage of wound debrided: 100 Instrument Used: 3mm curette Tissue Removed: Slough and devitalized tissue Severity: Fat Layer Exposed Amount of bleeding with debridement: Mild Bleeding Controlled with: Pressure Patient tolerated procedure: Patient tolerated procedure well Additional Wound Wound debrided: Posterior RLE ulcer Laterality: Right Type of Debridement: Excisional debridement Anesthesia Used: 4% Lidocaine Solution and Cetacaine Depth: in the subcutaneous layer Percentage of wound debrided: 100 Instrument Used: 7mm curette Tissue Removed: Slough and devitalized tissue Severity: Fat Layer Exposed Amount of bleeding with debridement: Mild Bleeding Controlled with: Pressure Patient tolerated procedure: Patient tolerated procedure well Assessment/Plan Assessment/Plan (1) Ulcer of right lower extremity with fat layer exposed: CODE(S): L97.912 - Non-pressure chronic ulcer of unspecified part of right lower leg with fat layer exposed (2) Venous ulcer of right leg: CODE(S): I83.019 - Varicose veins of right lower extremity with ulcer of unspecified site; L97.919 - Non-pressure chronic ulcer of unspecified part of right lower leg with unspecified severity (3) Nonhealing ulcer of right lower extremity: CODE(S): L97.919 - Non-pressure chronic ulcer of unspecified part of right lower leg with unspecified severity QUALIFIERS: Non-pressure ulcer stage: with fat layer exposed Qualified Code(s): L97.912 - Non-pressure chronic ulcer of unspecified part of right lower leg with fat layer exposed (4) Venous insufficiency: (5) Cellulitis of right lower extremity: CODE(S): L03.115 - Cellulitis of right lower limb (6) Lymphedema: CODE(S): I89.0 - Lymphedema, not elsewhere classified (7) Morbid obesity: CODE(S): E66.01 - Morbid (severe) obesity due to excess calories PLAN: Given the duration of the venous leg ulcers and failure of the ulcers to respond to standard wound care, we applied and were approved for Puraply, Nushield, and Apligraf. The patient had previously completed 6 applications of Puraply to the posterior RLE ulcer. Puraply was then discontinued due to failure of the wound to improve in size and appearance, which I suspect was due to the patient's inability to tolerate thorough debridement and refusal to appropriately utilize compression/leg elevation. With an increase in the use of her lymphedema pumps and multiple approaches to wound debridement, the patient's wound sizes improved and bioburden was reduced. Advanced skin substitutes were again applied for and approved. Of the 10 approved applications, she received 1 Puraply application, 5/5 Apligraf applications, and 4 Nushield applications. Her wounds continue to fluctuate in size, which I suspect is in part due to the fluctuation of her edema. Aquacel Ag was applied to the posterior RLE ulcer today. A supersorb dressing was placed atop for moisture control. Aquacel Ag was also applied to the anterior RLE ulcer today. Gauze and foam dressing were placed atop. At home wound-care instructions: For posterior RLE ulcer: Perform Aquacel Ag dressing changes daily. Wash wound prior to each dressing change, using antibacterial soap and water; rinse and dry thoroughly. Cover with super sorb dressing for moisture control. For anterior RLE ulcers: Perform Aquacel Ag dressing changes daily. Wash wound prior to each dressing change, using antibacterial soap and water; rinse and dry thoroughly. Cover with gauze and foam dressing. She was instructed to begin Desitin ointment daily to the periulcer areas for barrier protection due to increased moisture exposure. Change outer wound dressings twice daily if needed due to increased moisture/saturation. Compression: Patient reports that she is using her lymphedema pumps 2-3 times per week and the last few weeks, though she reports using them for 4 hours at a time due to falling asleep with them on. She was advised to use the lymphedema pumps for shorter, more frequent periods. I have discussed with patient several times that lymphedema pumps should be utilized for 1 hour 3 times per day. If this is not well-tolerated, the patient should continue to use the pumps as long and as frequently as possible, working toward this goal. Due to difficulty fitting her legs into the lymphedema pumps, it was recommended that she begin using the lymphedema pumps first thing in the morning. She had reported she was working with the company to obtain a bigger size and/or a new pump if necessary, though she has been able to use them with the Velcro straps in recent weeks. At this time, we were told by [employer] that they have no compression available in the patient's size. We have been able to find customizable sizing options for compression. The patient was advised to utilize her thigh-high CircAid's in the evenings and use her lymphedema pumps 3 times daily beginning first thing in the morning in efforts to reduce the swelling/circumference of her legs and enable her to obtain knee-high CircAid's. She has not been compliant with this. Despite numerous discussions and approaches to compression and edema reduction, the patient has been generally noncompliant. I am hopeful that she will continue use of lymphedema pumps as instructed. Off-loading: The patient was instructed to avoid pressure and friction on the affected areas. Reposition every 2 hours at minimum. Avoid prolonged standing and/or dangling of legs. When seated, feet should be elevated at chest level. Frequent ambulation is encouraged. She has been noncompliant with offloading as well. She frequently is seated in a car or at a desk, and does not elevate her feet. Diet: Patient encouraged to increase protein intake while taking caution to avoid high carbohydrate and/or sugar intake. Labs/cultures/imaging: Her wound culture from 10/23/2020 was positive for 1+ Enterobacter cloacae complex, rare Proteus vulgaris, rare MRSA, and 1+ corynebacterium striatum. She was given a course of Levaquin 500 mg daily x10 days, which she has completed. No clinical concern for infection today. Venous and arterial studies were previously ordered in September 2020, though the patient never had these done. These were again ordered today. Given the patient's delayed healing, a wound biopsy was recommended on multiple occasions to evaluate for other potential causes for delayed healing; the patient refused. Today she states that she has not yet reconsidered a biopsy. Follow-up: Consult with lymphedema specialist at [facility] on 01/14/2021 as rescheduled. Return to clinic in 2 weeks for reevaluation. Return sooner or report to the emergency room should symptoms worsen, or new symptoms arise. It has been discussed with the patient that if lymphedema consultation does not provide additional/alternative strategies for managing her wounds we may need a surgery consult. It has been emphasized that previous and current wound management efforts have not been effective, and this is largely in part to her uncontrolled lymphedema/edema. It has been discussed with the patient that the ongoing wounds of her right lower extremity are predisposing her to risk for infection, sepsis, and ultimately she is at risk of amputation. Note: [employer] speech recognition nut packer software was used to create portions of this document. Sound-alike and misspelled words, as well as other nut packer errors may be contained in the documentation.
== END 2020-12-31 23:59 ==
LOC: WC 08:15
PROVIDERS: PCP Family Medicine; Visit Provider Nurse Practitioner Family
DX: I83.018 Varicose veins of right lower extremity with ulcer other part of lower leg (principal); L97.812 Non-pressure chronic ulcer of other part of right lower leg with fat layer exposed; L03.115 Cellulitis of right lower limb; I87.2 Venous insufficiency (chronic) (peripheral); I89.0 Lymphedema, not elsewhere classified; I48.91 Unspecified atrial fibrillation; E03.9 Hypothyroidism, unspecified; E66.01 Morbid (severe) obesity due to excess calories; Z68.42 Body mass index [BMI] 45.0-49.9, adult; Z79.01 Long term (current) use of anticoagulants; Z79.890 Hormone replacement therapy; Z79.899 Other long term (current) drug therapy
CPT/HCPCS: 11042; 11045

== ENCOUNTER 2021-01-15 08:15 | Outpatient (RCR) | payer MEDICAID, SELFPAY ==
[2021-01-01 00:12] VITALS: BP 154/92; PULSE 69; RESP 18; TEMP 36; BMI 49.0
--- NOTE | 2021-01-01 12:32 | PCM.WC.PN ---
History of Present Illness Date of Service: 01/01/21 Chief Complaint: Ulcers of right lower extremity History of Wound: To[facility] for evaluation and treatment of bilateral lower leg ulcers. The patient is [facility] treatment of prior lower extremity ulcers. She has a PMH significant for chronic lymphedema, venous insufficiency, atrial fibrillation (on Eliquis), morbid obesity, and hypothyroidism. She reported development of her posterior right lower leg ulcer in April 2019. She initially was using Manuka honey to this ulcer, but then started using Vaseline instead. She reported her anterior right lower extremity ulcer developed in August, and she had been applying Vaseline to this daily. Her anterior left lower extremity ulcer developed approximately 1 week prior to her initial January 2020 appt, and she had been applying Vaseline to this daily as well. She notes that approximately 4 to 6 weeks prior, the ulcer on her posterior right lower leg began increasing in soreness. She has lymphedema pumps at home, but had not been using these due to reported pain with use which is related to her ulcers. She does not use compression at home. She reports frequent dangling of her legs while seated at her computer for work. She does not frequently elevate her feet when seated. The patient denied any fever, chills, nausea, vomiting, or diarrhea on initial evaluation. She denied any increasing redness or swelling of the affected area at that time as well. She did note foul-smelling drainage from her right lower extremity. She had not been on any recent antibiotics prior to evaluation. She reported having lab work done approximately 6 weeks prior; these records were requested for review multiple times but never obtained. Lab work was ordered and completed in February 2020 and was significant for the following: CBCD: RBC 3.83 (L), hemoglobin 11.3 (L), hematocrit 34.8 (L), platelets 143 (L) ESR: 93 (H) CMP: Albumin 3.0 (L) CRP: 111 (H) Prealbumin 18.6 (L) She had lower extremity arterial studies completed 05/16/16 which showed relatively normal arterial perfusion to ankle level bilaterally. Triphasic waveforms were noted at ankle level bilaterally. Resting ankle-brachial indices were bilaterally normal. The right digital-brachial index is normal, consistent with normal arterial perfusion at distal, small-vessel level in the right lower extremity. The left digital-brachial index is mildly diminished, suggesting the presence of mild, distal, small-vessel arterial occlusive disease in the left lower extremity. Venous and arterial studies were ordered on 09/11/2020, and the patient was scheduled for an appointment in September for these tests. However the tests were never completed. The patient has continually expressed reluctance regarding wound work-up, and noncompliance with orders. Wound cultures collected on 01/03/2020 were positive for 3+ Aeromonas hydrophilia/caviae, 2+ Citrobacter braakii, 1+ Proteus mirabilis, rare Staphylococus aureus, anaerobic cocci, actinomyces odontolyticus, Bacteroides fragilis; beta-lactamase positive. She completed courses of Levaquin and Augmentin. Weeks later, she developed redness and warmth of a localized lymphedema mass of her right medial thigh; this resolved following a 14-day course of Levaquin and Augmentin. She has continued to have fluctuating redness and warmth of this right medial thigh lymphedema mass. She has completed several courses of antibiotics. Keflex and Levaquin have been of benefit. Doxycycline was not felt to be of significant benefit. A referral to a lymphedema specialist at the [facility] was made, and the importance of scheduling this appointment was discussed with the patient. She has not yet scheduled this appointment. Several conversations have been had with the patient regarding her need for compression and lymphedema management in order for her wounds to heal. She refuses compression. She is noncompliant with elevating her legs. She states she is unable to use her lymphedema pumps at this time due to the size of her legs. Since January 2020, several wound care treatments have been utilized, including Aquacel, Aquacel Ag, Devika. She has completed several applications of advanced skin substitutes (Apligraf, Puraply, and Nushield). Progress of Wound: The patient's wounds have improved in size and appearance. She continues to note a lot of of weeping from her anterior RLE ulcer; this is nonpurulent and nonodorous. She reports compliance with the use of Aquacel Ag dressing changes. She reports she has been attempting to use her Unna boots more frequently in the past weeks. Her appointment with lymphedema specialist was rescheduled for mid January. Venous and arterial studies were again ordered, but have not yet been completed. Objective Data Objective Data Vital Signs: Vital Signs Temp Pulse Resp BP 96.8 F L 69 18 154/92 H 01/01/21 00:12 01/01/21 00:12 01/01/21 00:12 01/01/21 00:12 Body Mass Index (BMI) 49.0 Charges/Coding Procedures Integumentary [id number]: 60132 Shante subq tissue 20 sq cm/< Physical Exam Const alert and no apparent distress General Appearance: cooperative, comfortable and well kempt Nutritional Appearance: morbidly obese HEENT Head and Scalp: normocephalic and atraumatic Neck supple Lymph Lymphatic: lymphedema severe (worse in RLE) Resp normal respiratory effort Cardio Peripheral Pulses: dorsalis pedis pulses present right 1+ Extremity normal capillary refill and no joint enlargement General Extremity: edema bilateral lower extremity Details: severe; Negative for clubbing or cyanosis Skin Wounds: wounds noted drainage serosanguineous, No malodorous, no odor and surrounding erythema Wound Narrative: New proximal anterior RLE ulcer. Moderate amount of slough and devitalized tissue present. No periulcer warmth. Periulcer erythema and excoriation present. No purulent/malodorous drainage. No tunneling, undermining, or probing to bone. RLE anterior ulcer with moderate amount of slough and devitalized tissue present. Small amount of good granulation tissue present. No periulcer warmth. Periulcer erythema and excoriation present. No purulent/malodorous drainage. No tunneling, undermining, or probing to bone. RLE posterior ulcer with large amount of slough and devitalized tissue present. Moderate periulcer erythema and excoriation present. No periulcer warmth. No purulent/malodorous drainage. No tunneling, undermining, or probing to bone. Neuro oriented x3, moves all extremities and no focal motor deficits Psych mental status grossly normal, cooperative and affect normal Debridement Note Debridement Note Wound debrided: RLE anterior ulcer (distal) Laterality: Right Type of Debridement: Excisional debridement Anesthesia Used: 5% Lidocaine Gel Depth: in the subcutaneous layer Percentage of wound debrided: 100 Instrument Used: - (Ultrasonic debridement) Tissue Removed: Slough and devitalized tissue Severity: Fat Layer Exposed Amount of bleeding with debridement: Mild Bleeding Controlled with: Pressure Patient tolerated procedure: Patient tolerated procedure well Additional Wound Wound debrided: RLE anterior ulcer (proximal) Laterality: Right Type of Debridement: Excisional debridement Anesthesia Used: 5% Lidocaine Gel Depth: in the subcutaneous layer Percentage of wound debrided: 100 Instrument Used: - (Ultrasonic debridement) Tissue Removed: Slough and devitalized tissue Severity: Fat Layer Exposed Amount of bleeding with debridement: Mild Bleeding Controlled with: Pressure Patient tolerated procedure: Patient tolerated procedure well Additional Wound Wound debrided: RLE posterior ulcer Laterality: Right Type of Debridement: Excisional debridement Anesthesia Used: 5% Lidocaine Gel Depth: in the subcutaneous layer Percentage of wound debrided: 100 Instrument Used: - (Ultrasonic debridement) Tissue Removed: Slough and devitalized tissue Severity: Fat Layer Exposed Amount of bleeding with debridement: Mild Bleeding Controlled with: Pressure Patient tolerated procedure: Patient tolerated procedure well Assessment/Plan Assessment/Plan (1) Ulcer of right lower extremity with fat layer exposed: CODE(S): L97.912 - Non-pressure chronic ulcer of unspecified part of right lower leg with fat layer exposed (2) Venous ulcer of right leg: CODE(S): I83.019 - Varicose veins of right lower extremity with ulcer of unspecified site; L97.919 - Non-pressure chronic ulcer of unspecified part of right lower leg with unspecified severity (3) Nonhealing ulcer of right lower extremity: CODE(S): L97.919 - Non-pressure chronic ulcer of unspecified part of right lower leg with unspecified severity QUALIFIERS: Non-pressure ulcer stage: with fat layer exposed Qualified Code(s): L97.912 - Non-pressure chronic ulcer of unspecified part of right lower leg with fat layer exposed (4) Venous insufficiency: (5) Cellulitis of right lower extremity: CODE(S): L03.115 - Cellulitis of right lower limb (6) Lymphedema: CODE(S): I89.0 - Lymphedema, not elsewhere classified (7) Morbid obesity: CODE(S): E66.01 - Morbid (severe) obesity due to excess calories PLAN: Given the duration of the venous leg ulcers and failure of the ulcers to respond to standard wound care, we applied and were approved for Puraply, Nushield, and Apligraf. The patient had previously completed 6 applications of Puraply to the posterior RLE ulcer. Puraply was then discontinued due to failure of the wound to improve in size and appearance, which I suspect was due to the patient's inability to tolerate thorough debridement and refusal to appropriately utilize compression/leg elevation. With an increase in the use of her lymphedema pumps and multiple approaches to wound debridement, the patient's wound sizes improved and bioburden was reduced. Advanced skin substitutes were again applied for and approved. Of the 10 approved applications, she received 1 Puraply application, 5/5 Apligraf applications, and 4 Nushield applications. Her wounds continue to fluctuate in size, which I suspect is in part due to the fluctuation of her edema. Ultrasonic debridement was performed today to both anterior ulcers and the posterior ulcer of the right lower extremity. Aquacel Ag was applied to the posterior RLE ulcer today. A supersorb dressing was placed atop for moisture control. Aquacel Ag was also applied to the anterior RLE ulcer today. Gauze and foam dressing were placed atop. At home wound-care instructions: For posterior RLE ulcer: Perform Aquacel Ag dressing changes daily. Wash wound prior to each dressing change, using antibacterial soap and water; rinse and dry thoroughly. Cover with super sorb dressing for moisture control. For anterior RLE ulcers: Perform Aquacel Ag dressing changes daily. Wash wound prior to each dressing change, using antibacterial soap and water; rinse and dry thoroughly. Cover with gauze and foam dressing. She was instructed to begin Desitin ointment daily to the periulcer areas for barrier protection due to increased moisture exposure. Change outer wound dressings twice daily if needed due to increased moisture/saturation. Compression: The patient reports she is trying to use her lymphedema pumps more. I have discussed with patient several times that lymphedema pumps should be utilized for 1 hour 3 times per day. If this is not well-tolerated, the patient should continue to use the pumps as long and as frequently as possible, working toward this goal. Due to difficulty fitting her legs into the lymphedema pumps, it was recommended that she begin using the lymphedema pumps first thing in the morning. She had reported she was working with the company to obtain a bigger size and/or a new pump if necessary, though she has been able to use them with the Velcro straps in recent weeks. At this time, we were told by [employer] that they have no compression available in the patient's size. We have been able to find customizable sizing options for compression. The patient was advised to utilize her thigh-high CircAid's in the evenings and use her lymphedema pumps 3 times daily beginning first thing in the morning in efforts to reduce the swelling/circumference of her legs and enable her to obtain knee-high CircAid's. She has not been compliant with this. Despite numerous discussions and approaches to compression and edema reduction, the patient has been generally noncompliant. I am hopeful that she will continue use of lymphedema pumps as instructed. Off-loading: The patient was instructed to avoid pressure and friction on the affected areas. Reposition every 2 hours at minimum. Avoid prolonged standing and/or dangling of legs. When seated, feet should be elevated at chest level. Frequent ambulation is encouraged. She has been noncompliant with offloading as well. She frequently is seated in a car or at a desk, and does not elevate her feet. Diet: Patient encouraged to increase protein intake while taking caution to avoid high carbohydrate and/or sugar intake. Labs/cultures/imaging: Her wound culture from 10/23/2020 was positive for 1+ Enterobacter cloacae complex, rare Proteus vulgaris, rare MRSA, and 1+ corynebacterium striatum. She was given a course of Levaquin 500 mg daily x10 days, which she has completed. No clinical concern for infection today. Venous and arterial studies were previously ordered in September 2020, though the patient never had these done. These were again ordered in late December 2020, but have not yet been completed. Given the patient's delayed healing, a wound biopsy was recommended on multiple occasions to evaluate for other potential causes for delayed healing; the patient refused. Follow-up: Consult with lymphedema specialist at [facility] on 01/14/2021 as rescheduled. Return to clinic in 2 weeks for reevaluation. Return sooner or report to the emergency room should symptoms worsen, or new symptoms arise. It has been discussed with the patient that if lymphedema consultation does not provide additional/alternative strategies for managing her wounds we may need a surgery consult. It has been emphasized that previous and current wound management efforts have not been effective, and this is largely in part to her uncontrolled lymphedema/edema. It has been discussed with the patient that the ongoing wounds of her right lower extremity are predisposing her to risk for infection, sepsis, and ultimately she is at risk of amputation. Note: [employer] speech recognition line assembly utility worker software was used to create portions of this document. Sound-alike and misspelled words, as well as other line assembly utility worker errors may be contained in the documentation.
[2021-01-15 08:35] VITALS: BP 147/96; PULSE 80; TEMP 36.1; BMI 49.0
--- NOTE | 2021-01-15 09:06 | PN.PCM_ITS ---
History of Present Illness Date of Service: 01/15/21 Chief Complaint: Ulcers of right lower extremity History of Wound: [facility] for evaluation and treatment of bilateral lower leg ulcers. The patient is [facility] treatment of prior lower extremity ulcers. She has a PMH significant for chronic lymphedema, venous insufficiency, atrial fibrillation (on Eliquis), morbid obesity, and hypothyroidism. She reported development of her posterior right lower leg ulcer in April 2019. She initially was using Manuka honey to this ulcer, but then started using Vaseline instead. She reported her anterior right lower extremity ulcer developed in August, and she had been applying Vaseline to this daily. Her anterior left lower extremity ulcer developed approximately 1 week prior to her initial January 2020 appt, and she had been applying Vaseline to this daily as well. She notes that approximately 4 to 6 weeks prior, the ulcer on her posterior right lower leg began increasing in soreness. She has lymphedema pumps at home, but had not been using these due to reported pain with use which is related to her ulcers. She does not use compression at home. She reports frequent dangling of her legs while seated at her computer for work. She does not frequently elevate her feet when seated. The patient denied any fever, chills, nausea, vomiting, or diarrhea on initial evaluation. She denied any increasing redness or swelling of the affected area at that time as well. She did note foul-smelling drainage from her right lower extremity. She had not been on any recent antibiotics prior to evaluation. She reported having lab work done approximately 6 weeks prior; these records were requested for review multiple times but never obtained. Lab work was ordered and completed in February 2020 and was significant for the following: CBCD: RBC 3.83 (L), hemoglobin 11.3 (L), hematocrit 34.8 (L), platelets 143 (L) ESR: 93 (H) CMP: Albumin 3.0 (L) CRP: 111 (H) Prealbumin 18.6 (L) She had lower extremity arterial studies completed 05/16/16 which showed relatively normal arterial perfusion to ankle level bilaterally. Triphasic waveforms were noted at ankle level bilaterally. Resting ankle-brachial indices were bilaterally normal. The right digital-brachial index is normal, consistent with normal arterial perfusion at distal, small-vessel level in the right lower extremity. The left digital-brachial index is mildly diminished, suggesting the presence of mild, distal, small-vessel arterial occlusive disease in the left lower extremity. Venous and arterial studies were ordered on 09/11/2020, and the patient was scheduled for an appointment in September for these tests. However the tests were never completed. The patient has continually expressed reluctance regarding wound work-up, and noncompliance with orders. Wound cultures collected on 01/03/2020 were positive for 3+ Aeromonas hydrophilia/caviae, 2+ Citrobacter braakii, 1+ Proteus mirabilis, rare Staphylococus aureus, anaerobic cocci, actinomyces odontolyticus, Bacteroides fragilis; beta-lactamase positive. She completed courses of Levaquin and Augmentin. Weeks later, she developed redness and warmth of a localized lymphedema mass of her right medial thigh; this resolved following a 14-day course of Levaquin and Augmentin. She has continued to have fluctuating redness and warmth of this right medial thigh lymphedema mass. She has completed several courses of antibiotics. Keflex and Levaquin have been of benefit. Doxycycline was not felt to be of significant benefit. A referral to a lymphedema specialist at the [facility] was made, and the importance of scheduling this appointment was discussed with the patient. She has not yet scheduled this appointment. Several conversations have been had with the patient regarding her need for compression and lymphedema management in order for her wounds to heal. She refuses compression. She is noncompliant with elevating her legs. She states she is unable to use her lymphedema pumps at this time due to the size of her legs. Since January 2020, several wound care treatments have been utilized, including Aquacel, Aquacel Ag, Devika. She has completed several applications of advanced skin substitutes (Apligraf, Puraply, and Nushield). Progress of Wound: The patient's wounds have increased in size and worsened appearance. She has had an increase in weeping of the RLE, and her pant leg is saturated this morning from the copious amounts of drainage; This is nonpurulent and nonodorous. Her distal RLE is grossly excoriated from drainage. She reports compliance with the use of Aquacel Ag dressing changes. She admits she has not been using her lymphedema pumps regularly in recent weeks. Her appointment with lymphedema specialist was rescheduled for mid January. She cancelled this appointment, stating her ride fell through. She has not yet rescheduled. Venous and arterial studies have not yet been completed. She expresses a lot of frustration today with her lack of wound healing. Objective Data Objective Data Vital Signs: Vital Signs Temp Pulse Resp BP 96.9 F L 80 18 147/96 H 01/15/21 08:35 01/15/21 08:35 01/01/21 00:12 01/15/21 08:35 Body Mass Index (BMI) 49.0 Charges/Coding Procedures Integumentary 111xxx-113xx: [id number] Shante subq tissue 20 sq cm/< Physical Exam Const alert and no apparent distress General Appearance: cooperative, comfortable and well kempt Nutritional Appearance: morbidly obese HEENT Head and Scalp: normocephalic and atraumatic Neck supple Lymph Lymphatic: lymphedema severe (worse in RLE) Resp normal respiratory effort Cardio Peripheral Pulses: dorsalis pedis pulses present right 1+ Extremity normal capillary refill and no joint enlargement General Extremity: edema bilateral lower extremity Details: severe; Negative for clubbing or cyanosis Skin Rashes: rashes noted distal RLE Narrative: bright red excoriation present, likely d/t copious amount of drainage and moisture trapping excoriation nontender Wounds: wounds noted drainage serosanguineous, No malodorous, no odor and surrounding erythema Wound Narrative: Copious amounts of clear drainage from her distal RLE. No purulent/malodorous drainage. Proximal anterior RLE ulcer with moderate amount of slough and devitalized tissue present. Subcutaneous layer exposed. No tunneling, undermining, or probing to bone. No periulcer warmth. Severe periulcer erythema and excoriation present. RLE anterior ulcer with moderate amount of slough and devitalized tissue present. Scarce amount of good granulation tissue present. No periulcer warmth. Severe periulcer erythema and excoriation present. No tunneling, undermining, or probing to bone. RLE posterior ulcer with large amount of slough and devitalized tissue present. Moderate periulcer erythema and excoriation present. No periulcer warmth. No tunneling, undermining, or probing to bone. Neuro oriented x3, moves all extremities and no focal motor deficits Psych mental status grossly normal, cooperative and affect normal Debridement Note Debridement Note Wound debrided: RLE anterior (distal) Laterality: Right Type of Debridement: Excisional debridement Anesthesia Used: 4% Lidocaine Solution and Cetacaine Depth: in the subcutaneous layer Percentage of wound debrided: 100 Instrument Used: 5mm curette Tissue Removed: Slough and devitalized tissue Severity: Fat Layer Exposed Amount of bleeding with debridement: Mild Bleeding Controlled with: Pressure Patient tolerated procedure: Patient tolerated procedure well Post-Debridement Measurements and Additional Note: Post-Debridement Measurements/Treatment CHRISTIANNE - Nurse 1 - General Ulcer Assessment Start: 01/15/21 08:19 Freq: Status: Active Protocol: SAL Activity Type Activity Date Activity User E-Sign Co-Sign Detail Recorded Client Recorded Date Recorded By Document 01/15/21 08:35 ROGERIO [employer] 01/15/21 08:38 ROGERIO 01/15/21 08:35 CHRISTIANNE Suazo Today's Visit Information Type of service Follow-up Visit (Physician/MANAGER CATH LAB ) Arrival Mode Ambulatory,Cane Patient Identification Verified (Name & Yes ) Patient Requires Transmission-Based No Precautions Safety Precautions NA Height and Weight Body Mass Index (BMI) 49.0 BMI Classification Obese Vital Signs Temperature (97.8 F-99.1 F) 96.9 F L Temperature Source Temporal Pulse Rate (60-100) 80 Pulse Location Monitor Blood Pressure (90/60-120/80) 147/96 H Blood Pressure Mean (mm Hg) 113 Source Monitor History Since Last Visit- (Skip if this is Patient's initial visit) Have you changed medications since your No last visit? Any new allergies or adverse reactions No Had a fall/change in ADL's that may No increase risk of falls Signs or symptoms of abuse and/or No neglect since last visit Have you been in the hospital since your No last visit? Has dressing in place as prescribed Yes Has compression in place as prescribed No Has offloadiing in place as prescribed N/A Experienced any changes in pain level or No management Left Footwear Regular Shoe Right Footwear Regular Shoe - Nurse 1 - General Ulcer Measurement Start: 01/15/21 08:19 Freq: Status: Active Protocol: Activity Type Activity Date Activity User E-Sign Co-Sign Detail Recorded Client Recorded Date Recorded By Document 01/15/21 08:35 ROGERIO [employer] 01/15/21 08:38 ROGERIO 01/15/21 08:35 Wound Center Nurse 1 #8 RLE Post -Combined with other wound No -Current Size (cm) - Length 13 -Current Size (cm) - Width 16 -Current Size (cm) - Depth 0.1 -Total Square Cm 208 -Photo Taken No -Epithelialization None Present -Tunneling No -Undermining/Tunneling No -Circular Undermining No -Classification - Thickness Partial Thickness -Change in Wound Grade/Stage No -Exudate Amt Medium -Exudate Type Purulent -Wound Margin Distinct, Outline Attached -Granulation Amt None Present (0 %) -Granulation Quality N/A -Slough/Fibrin Yes -Necrosis Amt Medium (34-66%) -Necrotic Tissue Type Adherent Slough -Structure Exposed N/A -Texture (Irene-wound Skin Appearance) Assessed, Scarring,Rash -Moisture (Irene-wound Skin Appearance) No Abnormality, Assessed -Color (Irene-wound Skin Appearance) Assessed, Erythema -Temperature (Irene-wound Skin No Abnormality Appearance) (Pt Warm) -Tenderness on Palpation (Irene-wound Yes Skin Appearance) -Ulcer Cleansing Soap and Water -Foul Odor after Cleansing No -Anesthetic Used 4% Lidocaine Solution,5% Lidocaine Gel #7 RLE Ant Cluster -Combined with other wound No -Photo Taken No -Epithelialization None Present -Tunneling No -Undermining/Tunneling No -Circular Undermining No -Change in Wound Grade/Stage No -Exudate Amt Medium -Exudate Type Serosanguineous -Wound Margin Distinct, Outline Attached -Granulation Amt None Present (0 %) -Granulation Quality N/A -Slough/Fibrin Yes -Necrosis Amt Medium (34-66%) -Necrotic Tissue Type Adherent Slough -Structure Exposed N/A -Texture (Irene-wound Skin Appearance) Assessed, Scarring,Rash -Moisture (Irene-wound Skin Appearance) Assessed, Weeping -Color (Irene-wound Skin Appearance) Assessed, Erythema -Temperature (Irene-wound Skin No Abnormality Appearance) (Pt Warm) -Tenderness on Palpation (Irene-wound No Skin Appearance) -Ulcer Cleansing Soap and Water -Foul Odor after Cleansing No -Anesthetic Used 4% Lidocaine Solution,5% Lidocaine Gel Right Calf (cm) 68 Right Ankle (cm) 34 WC - Nurse 2 - General Ulcer CM Notes Start: 01/01/21 13:03 Freq: Status: Active Protocol: Activity Type Activity Date Activity User E-Sign Co-Sign Detail Recorded Client Recorded Date Recorded By Document 01/01/21 13:07 PL [id number] 01/01/21 13:09 PL 01/01/21 13:07 Wound Center Nurse 2 #8 RLE Post -Time 08:38 -Correct Patient Yes -Correct Side, Site, Position Yes -Correct Procedure Yes -Procedure Performed Yes -Type of Procedure Debridement -Clinical Debridement Subcutaneous -Tissue Removed Subcutaneous -Post Debridement (cm) - Length 4.8 -Post Debridement (cm) - Width 3.8 -Post Debridement (cm) - Depth 0.1 -Total Square (Post) (cm) 18.24 -Area of Debridement (cm) - Length 4.8 -Area of Debridement (cm) - Width 3.8 -Total Square (Area) (cm) 18.24 -Tunneling No -Undermining/Tunneling No -Circular Undermining No -Wound/Ulcer Outcome Not Healed -Ulcer Cleansing Rinsed/ Irrigated with Saline -Foul Odor after Cleansing No -Bioengineered Tissue No -Bleeding Controlled with Pressure -Treatment Response Procedure Tolerated Well -Debridement - Subq, 1st 20sq cm Yes #7 RLE Ant Cluster -Time 08:38 -Correct Patient Yes -Correct Side, Site, Position Yes -Correct Procedure Yes -Procedure Performed Yes -Type of Procedure Debridement -Clinical Debridement Subcutaneous -Tissue Removed Subcutaneous -Post Debridement (cm) - Length 2.8 -Post Debridement (cm) - Width 1.4 -Post Debridement (cm) - Depth 0.1 -Total Square (Post) (cm) 3.92 -Area of Debridement (cm) - Length 2.8 -Area of Debridement (cm) - Width 1.4 -Total Square (Area) (cm) 3.92 -Tunneling No -Undermining/Tunneling No -Circular Undermining No -Wound/Ulcer Outcome Not Healed -Ulcer Cleansing Rinsed/ Irrigated with Saline -Foul Odor after Cleansing No -Bioengineered Tissue No -Debridement - Subq, 1st 20sq cm No Additional Wound Wound debrided: RLE anterior (proximal) Type of Debridement: Excisional debridement Anesthesia Used: 4% Lidocaine Solution and Cetacaine Depth: in the subcutaneous layer Percentage of wound debrided: 100 Instrument Used: 5mm curette Tissue Removed: Slough and devitalized tissue Severity: Fat Layer Exposed Amount of bleeding with debridement: Mild Bleeding Controlled with: Pressure Patient tolerated procedure: Patient tolerated procedure well Additional Wound Wound debrided: RLE posterior Laterality: Right Type of Debridement: Excisional debridement Anesthesia Used: 4% Lidocaine Solution and Cetacaine Depth: in the subcutaneous layer Percentage of wound debrided: 100 Instrument Used: 7mm curette Tissue Removed: Slough and devitalized tissue Severity: Fat Layer Exposed Amount of bleeding with debridement: Mild Bleeding Controlled with: Pressure Patient tolerated procedure: Patient tolerated procedure well Assessment/Plan Assessment/Plan (1) Ulcer of right lower extremity with fat layer exposed: CODE(S): L97.912 - Non-pressure chronic ulcer of unspecified part of right lower leg with fat layer exposed (2) Venous ulcer of right leg: CODE(S): I83.019 - Varicose veins of right lower extremity with ulcer of unspecified site; L97.919 - Non-pressure chronic ulcer of unspecified part of right lower leg with unspecified severity (3) Nonhealing ulcer of right lower extremity: CODE(S): L97.919 - Non-pressure chronic ulcer of unspecified part of right lower leg with unspecified severity QUALIFIERS: Non-pressure ulcer stage: with fat layer exposed Qualified Code(s): L97.912 - Non-pressure chronic ulcer of unspecified part of right lower leg with fat layer exposed (4) Venous insufficiency: (5) Cellulitis of right lower extremity: CODE(S): L03.115 - Cellulitis of right lower limb (6) Lymphedema: CODE(S): I89.0 - Lymphedema, not elsewhere classified (7) Morbid obesity: CODE(S): E66.01 - Morbid (severe) obesity due to excess calories (8) Excoriation of right lower leg: CODE(S): S80.811A - Abrasion, right lower leg, initial encounter QUALIFIERS: Encounter type: initial encounter Qualified Code(s): S80.811A - Abrasion, right lower leg, initial encounter PLAN: Given the duration of the venous leg ulcers and failure of the ulcers to respond to standard wound care, we applied and were approved for Puraply, Nushield, and Apligraf. The patient had previously completed 6 applications of Puraply to the posterior RLE ulcer. Puraply was then discontinued due to failure of the wound to improve in size and appearance, which I suspect was due to the patient's inability to tolerate thorough debridement and refusal to appropriately utilize compression/leg elevation. With an increase in the use of her lymphedema pumps and multiple approaches to w ound debridement, the patient's wound sizes improved and bioburden was reduced. Advanced skin substitutes were again applied for and approved. Of the 10 approved applications, she received 1 Puraply application, 5/5 Apligraf applications, and 4 Nushield applications. Her wounds continue to fluctuate in size, which I suspect is in part due to the fluctuation of her edema. Ultrasonic debridement was previously performed to both anterior ulcers and the posterior ulcer of the right lower extremity, though I do not feel this provided as thorough debridement as using a curette. Ultrasonic debridement may be attempted again in the future using a curette tip. Aquacel Ag was applied to the anterior and posterior RLE ulcers today. Supersorb dressings placed atop for moisture control. At home wound-care instructions: Perform Aquacel Ag dressing changes daily. Wash wound prior to each dressing change, using antibacterial soap and water; rinse and dry thoroughly. Cover with super sorb dressing for moisture control. Change outer dressings as needed due to saturation, to prevent excess moisture against the skin. She was instructed to begin Desitin or A&D ointment daily to the periulcer areas for barrier protection due to increased moisture exposure. We discussed at length that her excoriation will most likely persist and worsen if she does not use compression or elevate her legs. Compression: The patient admits she has not been using her lymphedema pumps regularly. I have discussed with patient several times that lymphedema pumps should be utilized for 1 hour 3 times per day. If this is not well-tolerated, the patient should continue to use the pumps as long and as frequently as possible, working toward this goal. Due to difficulty fitting her legs into the lymphedema pumps, it was recommended that she begin using the lymphedema pumps first thing in the morning, when her swelling should be at its minimum. She had reported she was working with the company to obtain a bigger size and/or a new pump if necessary, though she has been able to use them with the Velcro straps more recently. At this time, we were told by [employer] that they have no compression available in the patient's size. We have been able to find customizable sizing options for compression. The patient was advised to utilize her thigh-high CircAid's in the evenings and use her lymphedema pumps 3 times daily beginning first thing in the morning in efforts to reduce the swelling/circumference of her legs and enable her to obtain knee-high CircAid's. She has not been compliant with this. Previous attempts to wrap her legs have been unsuccessful, according to the patient. She states her wraps fall down before she even gets out to her car. Despite numerous discussions and approaches to compression and edema reduction, the patient has been generally noncompliant. I am hopeful that she will resume use of lymphedema pumps as instructed. Off-loading: The patient was instructed to avoid pressure and friction on the affected areas. Reposition every 2 hours at minimum. Avoid prolonged standing and/or dangling of legs. When seated, feet should be elevated at chest level. Frequent ambulation is encouraged. She has been noncompliant with elevation of her legs. She frequently is seated in a car or at a desk, and does not elevate her feet. She reports it is just too difficult for her to keep her feet up with her daily schedule. Diet: Patient encouraged to increase protein intake while taking caution to avoid high carbohydrate and/or sugar intake. Labs/cultures/imaging: Her wound culture from 10/23/2020 was positive for 1+ Enterobacter cloacae complex, rare Proteus vulgaris, rare MRSA, and 1+ corynebacterium striatum. She was given a course of Levaquin 500 mg daily x10 days, which she has completed. No clinical concern for infection today. Venous and arterial studies were previously ordered in September 2020, though the patient never had these done. These were again ordered in late December 2020, but have not yet been completed. I have advised the patient that this information would be extremely helpful to have prior to her consultation with the Vascular/Lymphedema specialist. She was again encouraged to get these done. Given the patient's delayed healing, a wound biopsy was recommended on multiple occasions to evaluate for other potential causes for delayed healing; the patient refused. She had labs around September 2020 with her PCP (Irma Hernandez in [place]). These results will be requested and we will determine if additional lab work is needed. Follow-up: Consult with lymphedema specialist at [facility] on 01/14/2021 was cancelled by patient due to reported transportation issues. The importance of this consultation has been discussed at length with the patient. She argued today that she wouldn't want any vascular surgical intervention until she has her knees replaced, as she states she has severe osteoarthritis in both knees. I emphasized that 1.) it would be very unlikely that an orthopedic surgeon would be willing to operate on her knees given her chronic open wounds and increased risk of infection and 2.) optimizing her vascular function would be essential for optimal healing following any orthopedic surgery as well. Return to clinic in 2 weeks for reevaluation. Return sooner or report to the emergency room should symptoms worsen, or new symptoms arise. It has been discussed with the patient that if lymphedema consultation does not provide additional/alternative strategies for managing her wounds, we may need a surgery consult. It has been emphasized that previous and current wound management efforts have not been effective, and this is largely in part to her uncontrolled lymphedema/edema. It was again discussed with the patient that the ongoing wounds of her right lower extremity are predisposing her to risk for infection, sepsis, and ultimately she is at risk of amputation or even should her wounds become severely infected. Note: [employer] speech recognition a/c tech software was used to create portions of this document. Sound-alike and misspelled words, as well as other a/c tech errors may be contained in the documentation.
== END 2021-01-31 23:59 ==
LOC: WC 08:15
PROVIDERS: PCP Family Medicine; Visit Provider Nurse Practitioner Family
DX: I83.018 Varicose veins of right lower extremity with ulcer other part of lower leg (principal); L97.812 Non-pressure chronic ulcer of other part of right lower leg with fat layer exposed; L03.115 Cellulitis of right lower limb; I89.0 Lymphedema, not elsewhere classified; I87.2 Venous insufficiency (chronic) (peripheral); I48.91 Unspecified atrial fibrillation; E03.9 Hypothyroidism, unspecified; Z91.19 Patient's noncompliance with other medical treatment and regimen; E66.01 Morbid (severe) obesity due to excess calories; Z68.42 Body mass index [BMI] 45.0-49.9, adult; Z79.01 Long term (current) use of anticoagulants; Z79.890 Hormone replacement therapy; Z79.899 Other long term (current) drug therapy
CPT/HCPCS: 11042

== ENCOUNTER 2021-02-09 11:20 | Emergency (ER) | payer MEDICAID, SELFPAY ==
[2021-02-09 11:21] VITALS: BP 145/91; PULSE 90; RESP 18; TEMP 36.5; O2SAT 98; BMI 50.2
--- NOTE | 2021-02-09 12:23 | CM.ED ---
SAQIB Note SW went to speak to patient. She said that she is not here for mental health and has had dysthymia her entire life. Patient said I am not worried about that. Patient said that she has suicidal thoughts all the time and said that she would describe herself as dangerously suicidal. WHen askrd about about plan patient said nothing concrete but I think about it daily. Patient reports that she goes [place] he cemetery daily as it is peaceful and I am jealous when I see the tombstone. Patient counselor retired this spring so patient has not seen a counselor since her counselor retired. Patient reports no antidepressants for 4-5 years. Plan: Suicide Precautions Tana REYES
--- NOTE | 2021-02-09 12:34 | ED.RN ---
Pt voiced suicidal ideations with social service assistant. pt room cleared out and pt now under suicidal precautions.
--- NOTE | 2021-02-09 12:44 | EX.ED.DYSGE1 ---
HPI History of Present Illness Chief Complaint: Wound Informant: patient Narrative Narrative: 60-year-old female states that yesterday she was advised by wound center to come to the emergency room for IV antibiotics. Patient has significant chronic lymphedema of the lower extremities and is at the wound care clinic for ulcerations of the legs. She has reportedly been pretty noncompliant with recommendations and appointments. Patient states that she was given some oral antibiotics but does not know what they are but they are in the computer. She states that they did a culture of her wounds and advised her that she needed IV antibiotics. Wound cultures grew out Enterococcus faecalis and MRSA. She denies any fevers and other than the wound states that she is fine. She apparently noted to nursing that she feels daily suicidal ideation and often visits the graveyard because it is peaceful and she is jealous of the residents. [facility] Medical History Anxiety Carpal tunnel syndrome Cellulitis of right thigh Depression Excoriation of right lower leg H/O blood clots HTN (hypertension) Hypothyroidism IBS (irritable bowel syndrome) Nonhealing ulcer of right lower extremity Sleep apnea Stomach ulcer UTI (urinary tract infection) Vitamin deficiency Home Medications carvedilol 25 mg PO BID 10/15/14 [History Last Taken Unknown] losartan 25 mg PO DAILY 10/15/14 [History Last Taken Unknown] ujdlzmwz-ipu-dxol-FA-lutein 1 ea PO DAILY 05/11/16 [History Last Taken Unknown] apixaban 5 mg tablet 5 mg PO BID 01/11/18 [History Last Taken Unknown] bupropion HCl 150 mg 24 hr tablet, extended release 300 mg PO QAM tab 01/11/18 [History Last Taken Unknown] levothyroxine 175 mcg tablet 175 mcg PO .COMPLEX #48 tab 01/11/18 [Rx Last Taken Unknown] levofloxacin 500 mg PO Q24H #10 tab 02/05/21 [Rx Last Taken Unknown] amoxicillin-pot clavulanate 875 mg PO Q12H #20 tablet 02/09/21 [Rx Last Taken Unknown] doxycycline monohydrate 100 mg PO BID #20 capsule 02/09/21 [Rx Last Taken Unknown] Allergy/AdvReac Type Severity Reaction Status Date / Time adhesive tape Allergy Unknown Unknown Verified 02/09/21 13:03 Family History Mother Colon cancer Father Melanoma Surgical History H/O dilation and curettage Social History Smoking Status: Never smoker second hand exposure: No alcohol intake: never substance use type: does not use ROS ROS ED Constitutional Constitutional ED: Denies chills, fever(s) or weight loss Eyes Eyes: Denies change in vision or diplopia ENT ENT ED: Denies ear pain, rhinorrhea or sore throat Cardiovascular Cardiovascular: Denies chest pain, orthopnea, palpitations or racing heartbeat Respiratory/Chest Respiratory/Chest: Denies cough, dyspnea or orthopnea Gastrointestinal Gastrointestinal: Denies abdominal pain, diarrhea, nausea or vomiting Genitourinary Genitourinary ED: Denies dysuria, hematuria or urinary frequency Musculoskeletal Musculoskeletal: Denies arthralgias or myalgias Integumentary Reports other Details: Chronic wounds of lower extremity ; Denies abscess or rash Neurologic Neurologic: Denies headache(s) or weakness Psychiatric Psychiatric: Denies anxiety, depression, suicidal ideation or suicidal thoughts Endocrine Endocrinology: Denies polydipsia, polyphagia or polyuria Allergic/Immunologic Allergic/Immunologic ED: Denies mouth swelling, tongue swelling or urticaria EXAM Physical Exam Const Vital Signs: 02/09/21 11:21 Temperature 97.7 F L Temperature Source Temporal Pulse Rate 90 Respiratory Rate 18 Blood Pressure 145/91 H Blood Pressure Mean 109 Pulse Ox 98 Oxygen Delivery Method Room Air Positive well nourished, well developed and obese General Appearance ED: well developed Nutritional Appearance: obese HEENT Reports normocephalic, head/scalp atraumatic, TM's clear and moist mucous membranes Negative for trauma Tympanic Membrane ED: Yes TM's clear Eyes PERRL and EOMs intact bilaterally Neck no lymphadenopathy, supple and no JVD Resp normal respiratory effort and clear to auscultation bilaterally Cardio regular rate, regular rhythm and no murmurs GI normal to inspection, nondistended, normoactive bowel sounds and non-tender Palpation: soft Back/Spine no CVA tenderness and normal ROM Extremity normal to inspection Extremity Narrative: Patient has severe lymphedema of the lower extremities. General Extremety ED: Yes edema General Extremity: edema Neuro oriented x3 and CN's II-XII intact bilaterally Sensorium / Orientation: alert Motor Exam: strength 5/5 throughout Psych mental status grossly normal Mood & Affect: Negative for depressed or tearful Skin Skin Narrative: Chronic wounds lower extremity MDM MDM MDM Narrative Medical decision making narrative: White count is normal at 7.6. Platelet count 181. Hemoglobin 12.1. Lactic acid is 1.1. I reviewed the patient's cultures. It appears that she can be placed on doxycycline and Augmentin and provide coverage. Return if worsening or concerns. From mental health standpoint I do not believe that she is actively suicidal. I believe she is chronically depressed. I had social work speak with her and she is interested in outpatient IOP for all the counseling center. Lab Data Attestation: I reviewed the patient's lab results. Labs: Laboratory Results - last 24 hr 02/09/21 02/09/21 02/09/21 13:00 13:00 13:00 WBC 7.6 RBC 4.11 L Hgb 12.1 Hct 37.3 MCV 90.8 MCH 29.4 MCHC 32.4 RDW Std Deviation 42.5 RDW Coeff of Tameka 13.0 Plt Count 181 MPV 10.8 Immature Gran % (Auto) 0.300 Neut % (Auto) 62.3 Lymph % (Auto) 23.8 Irion % (Auto) 8.5 Eos % (Auto) 4.8 Baso % (Auto) 0.3 Absolute Neuts (auto) 4.7 Absolute Lymphs (auto) 1.80 Nucleated RBC % 0 PT 15.8 H INR 1.3 APTT 34.9 Sodium 141 Potassium 4.2 Chloride 109 H Carbon Dioxide 27.0 Anion Gap 5 BUN 13 Creatinine 0.74 Estim Creat Clear Calc 88.52 Est GFR (MDRD) Af Amer 104 Est GFR (MDRD) Non-Af 86 BUN/Creatinine Ratio 17.7 Glucose 103 Lactic Acid Calcium 9.4 Total Bilirubin 0.30 AST 13 L ALT 18 Alkaline Phosphatase 102 Total Protein 7.5 Albumin 2.7 L Globulin 4.8 H Albumin/Globulin Ratio 0.6 L 02/09/21 13:00 WBC RBC Hgb Hct MCV MCH MCHC RDW Std Deviation RDW Coeff of Tameka Plt Count MPV Immature Gran % (Auto) Neut % (Auto) Lymph % (Auto) Irion % (Auto) Eos % (Auto) Baso % (Auto) Absolute Neuts (auto) Absolute Lymphs (auto) Nucleated RBC % PT INR APTT Sodium Potassium Chloride Carbon Dioxide Anion Gap BUN Creatinine Estim Creat Clear Calc Est GFR (MDRD) Af Amer Est GFR (MDRD) Non-Af BUN/Creatinine Ratio Glucose Lactic Acid 1.1 Calcium Total Bilirubin AST ALT Alkaline Phosphatase Total Protein Albumin Globulin Albumin/Globulin Ratio Discharge Plan Triage Chief Complaint: Wound ED Provider: Esa Gomes Dx/Rx/DC Orders Clinical Impression: Venous ulcer of leg, Lymph edema, Depression Instructions: Wound Care Prescriptions: New doxycycline monohydrate 100 MG capsule 100 mg PO BID Qty: 20 RF: 0 amoxicillin-pot clavulanate [amoxicillin-pot clavulanate] 875 MG tablet 875 mg PO Q12H Qty: 20 RF: 0 No Action bupropion HCl [Wellbutrin XL] 150 mg tablet extended release 24 hr 300 mg PO QAM RF: 0 Eliquis 5 mg tablet 5 mg PO BID RF: 0 levothyroxine 175 mcg tablet 175 mcg PO .COMPLEX Qty: 48 RF: 11 losartan 50 MG tablet 25 mg PO DAILY RF: 0 carvedilol 25 MG tablet 25 mg PO BID RF: 0 ouageydy-tbu-xhev-FA-lutein 1 EACH tablet 1 ea PO DAILY RF: 0 levofloxacin 500 mg tablet 500 mg PO Q24H Qty: 10 RF: 0 Primary Care Provider: Irma Hernandez Referrals: Irma Hernandez MD [Primary Care Provider] - As Needed Activity Restrictions/Additional Instructions: Please keep your upcoming appointment at the wound care clinic Disposition Disposition: Home, Self Care
[2021-02-09 13:10] LABS: Absolute Neutrophil Count 4.7 X10^3/uL (2.0-7.7); Basophil# 0.02 X10^3/uL; Basophil% 0.3 % (0-1); Eosinophil# 0.36 X10^3/uL; Eosinophils% 4.8 % (0-5); Hematocrit 37.3 % (37-47); Hemoglobin 12.1 g/dL (12.0-15.0); Lymphocyte % 23.8 % (19-41); Mean Corp Hgb Conc 32.4 g/dL (32-36); Mean Corpuscular Hgb 29.4 pg (27.0-32.0); Mean Corpuscular Volume 90.8 fL (81-99); Mean Platelet Vol. 10.8 fl (6.2-12.0); Monocyte# 0.64 X10^3/uL; Monocyte% 8.5 % (0-10); NRBC Flagged by Analyzer 0 % (0-5); Neutrophil # 4.71 X10^3/uL (2.7-7.7); Neutrophil % 62.3 % (47-70); Platelet Count 181 K/mm3 (150-450); RBC Distribution Width SD 42.5 fl (35.1-43.9); Red Blood Count 4.11 M/mm3 (4.2-5.4); White Blood Count 7.6 K/mm3 (4.4-11.0)
[2021-02-09 13:19] LABS: International Normalized Ratio 1.3; Partial Thromboplast Time 34.9 Seconds (24.1-36.2); Prothrombin Time (Protime)PT. 15.8 SECONDS (11.7-14.9)
[2021-02-09 13:23] LABS: ALB/GLOB Ratio 0.6 RATIO (0.9-2.4); AST(SGOT) 13 U/L (15-37); Alanine Aminotransfer ALT/SGPT 18 U/L (13-56); Albumin, Serum 2.7 g/dL (3.2-5.0); Alkaline Phosphatase 102 U/L (45-117); Anion Gap 5 (5-15); BUN 13 mg/dL (7-18); BUN/Creat Ratio 17.7 RATIO (10-20); Calcium,Total 9.4 mg/dL (8.5-10.1); Chloride 109 mmol/L (98-107); Creatinine, Serum 0.74 mg/dL (0.55-1.02); EST Glomerular Filtration Rate 86 mL/min (>60); Est Glom Filt Rate - Afr Amer 104 mL/min (>60); Estimated Creatinine Clearance 88.52 ml/min; Globulin 4.8 g/dL (2.2-4.2); Glucose 103 mg/dL (74-106); Potassium 4.2 mmol/L (3.5-5.1); Protein, Total 7.5 g/dL (6.4-8.2); Sodium Level 141 mmol/L (136-145)
[2021-02-09 13:36] LABS: Lactic Acid 1.1 mmol/L (0.4-1.9)
--- NOTE | 2021-02-09 16:19 | CM.ED ---
Addendum entered by Tana Bejarano 02/09/21 21:57: MD said that he had reviewed patient's records and that she repeatedly does not follow through with appointments. felt that patient did not meet criteria for pink slip and that patient could go home from the ED. SAQIB gave resource list to patient and made referral to IOP/PHP Tana Bejarano PARVIN REYES Original Note: Social Work Psychiatric Assessment: Referral Reason: Mental Health Referral Source: RAEGAN Solis Chief Complaint: Irma said that patient had denied SI, but she is concerned about patient. SAQIB met with patient to assess her current functioning level and risk for SI. Patient said that she has dysthymia and is ?not worried about it?. Patient said that she feels suicidal ?all the time?. Patient said that she is currently ?dangerously suicidal?. SW asked about plan and patient said, ?nothing concrete ... but thinking about it daily?. Patient reports no antidepressants for 4-5 years. Patient said that she goes to the [facility] as it is peaceful and said, ?I am jealous when [facility] met with patient. SW met with patient after patient met with MD. Patient said, ?I regret saying it? and stated that she is at the ED for an IV antibiotic related to her wound. Patient said that she went to her parents grave yesterday and said to them ?I need help? and voiced that she felt she needed help. Marital /Social History: Single Living Situation: Lives by herself Supports/Resources: SW asked patient who her supports are, and she said that she has ?not really? any supports. Patient said that she talks to a friend in [place] and cousin in [place] that she talks to once a month. History: None Education and Employment History: Patient graduated from high school and attended various colleges and has ?several degrees?. 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 Patient reports she was unable to obtain social security as she does not have enough work credits. Mental Health Treatment and History: Patient said that she went to [facility] in [facility] past. She said that her therapist retired in June. Patient is not on medication. No previous psych hospitalizations. Triggers: ?life and financial?. Coping Skills: ?write, read, TV, get into the car and drive, and sleeping? Abuse Issues: Denied Substance Abuse: Denied Risk to Self/Others Suicidal: Patient reports that her baseline is SI. She reports no plan regarding SI and patient reports previous suicide attempt in 2009. Patient said ?I feel this way daily? Homicidal: Denied Violence: Denied Mental Status Exam: Orientation:x4 Memory: intact Appearance: Disheveled Mood/Affect: Neutral mood and affect Communication Pattern: Logical and Linear Thought Process No evidence of AH/VH General Intellectual Functioning: Above average Judgment: Fair Insight: Fair Plan: MD spoke to patient. MD feels comfortable with patient being discharged home. SAQIB provided patient with resource list of counselors. Patient said that she heard ?family life? in [place] was good. SW also offered to make a referral to [facility] for patient. Patient was receptive to referral to [facility]. Patient reports issues with [facility] as she felt they violated HIPPA. At the end of the interview patient acknowledged need for help and was future oriented in that she was talking about returning to work etc. SAQIB sent email to Emigdio Smith at [facility]/PHP. Tana REYES
--- NOTE | 2021-02-12 11:12 | CM.ED ---
SAQIB Note SAQIB called patient. She said that she was doing ok. She reports that she received a message from IOP/PHP yesterday and plans to follow up with them today. Patient did not voice any additional issues or concerns at this time. Tana REYES
== END 2021-02-09 16:36 | disposition home or self-care (01) ==
PROVIDERS: Emergency Provider Emergency Medicine; PCP Family Medicine
DX: L97.909 Non-pressure chronic ulcer of unspecified part of unspecified lower leg with unspecified severity (principal); B95.2 Enterococcus as the cause of diseases classified elsewhere; B95.62 Methicillin resistant Staphylococcus aureus infection as the cause of diseases classified elsewhere; I89.0 Lymphedema, not elsewhere classified; Z91.19 Patient's noncompliance with other medical treatment and regimen; F32.A Depression, unspecified; I10 Essential (primary) hypertension; E03.9 Hypothyroidism, unspecified; K58.9 Irritable bowel syndrome, unspecified; G47.30 Sleep apnea, unspecified; F41.9 Anxiety disorder, unspecified; E66.9 Obesity, unspecified; Z79.01 Long term (current) use of anticoagulants; Z79.899 Other long term (current) drug therapy; Z79.890 Hormone replacement therapy
CPT/HCPCS: 80053; 83605; 85025; 85610; 85730; 96365; 96366; 99285; J7040; J7050; A4216

== ENCOUNTER 2021-03-02 13:00 | Outpatient (RCR) | payer MEDICAID, SELFPAY ==
[2021-02-01 00:09] VITALS: BP 147/96; PULSE 80; RESP 18; TEMP 36.1; BMI 49.0
[2021-02-05 08:24] VITALS: BP 148/73; PULSE 75; RESP 16; TEMP 36.1; BMI 49.0
--- NOTE | 2021-02-05 09:27 | PCM.WC.PN ---
History of Present Illness Date of Service: 02/05/21 Chief Complaint: Ulcers of right lower extremity History of Wound: [facility] for evaluation and treatment of bilateral lower leg ulcers. The patient is [facility] treatment of prior lower extremity ulcers. She has a PMH significant for chronic lymphedema, venous insufficiency, atrial fibrillation (on Eliquis), morbid obesity, and hypothyroidism. She reported development of her posterior right lower leg ulcer in April 2019. She initially was using Manuka honey to this ulcer, but then started using Vaseline instead. She reported her anterior right lower extremity ulcer developed in August, and she had been applying Vaseline to this daily. Her anterior left lower extremity ulcer developed approximately 1 week prior to her initial January 2020 appt, and she had been applying Vaseline to this daily as well. She notes that approximately 4 to 6 weeks prior, the ulcer on her posterior right lower leg began increasing in soreness. She has lymphedema pumps at home, but had not been using these due to reported pain with use which is related to her ulcers. She does not use compression at home. She reports frequent dangling of her legs while seated at her computer for work. She does not frequently elevate her feet when seated. The patient denied any fever, chills, nausea, vomiting, or diarrhea on initial evaluation. She denied any increasing redness or swelling of the affected area at that time as well. She did note foul-smelling drainage from her right lower extremity. She had not been on any recent antibiotics prior to evaluation. She reported having lab work done approximately 6 weeks prior; these records were requested for review multiple times but never obtained. Lab work was ordered and completed in February 2020 and was significant for the following: CBCD: RBC 3.83 (L), hemoglobin 11.3 (L), hematocrit 34.8 (L), platelets 143 (L) ESR: 93 (H) CMP: Albumin 3.0 (L) CRP: 111 (H) Prealbumin 18.6 (L) She had lower extremity arterial studies completed 05/16/16 which showed relatively normal arterial perfusion to ankle level bilaterally. Triphasic waveforms were noted at ankle level bilaterally. Resting ankle-brachial indices were bilaterally normal. The right digital-brachial index is normal, consistent with normal arterial perfusion at distal, small-vessel level in the right lower extremity. The left digital-brachial index is mildly diminished, suggesting the presence of mild, distal, small-vessel arterial occlusive disease in the left lower extremity. Venous and arterial studies were ordered on 09/11/2020, and the patient was scheduled for an appointment in September for these tests. However the tests were never completed. The patient has continually expressed reluctance regarding wound work-up, and noncompliance with orders. Wound cultures collected on 01/03/2020 were positive for 3+ Aeromonas hydrophilia/caviae, 2+ Citrobacter braakii, 1+ Proteus mirabilis, rare Staphylococus aureus, anaerobic cocci, actinomyces odontolyticus, Bacteroides fragilis; beta-lactamase positive. She completed courses of Levaquin and Augmentin. Weeks later, she developed redness and warmth of a localized lymphedema mass of her right medial thigh; this resolved following a 14-day course of Levaquin and Augmentin. She has continued to have fluctuating redness and warmth of this right medial thigh lymphedema mass. She has completed several courses of antibiotics. Keflex and Levaquin have been of benefit. Doxycycline was not felt to be of significant benefit. A referral to a lymphedema specialist at the [facility] was made, and the importance of scheduling this appointment was discussed with the patient. She has not yet scheduled this appointment. Several conversations have been had with the patient regarding her need for compression and lymphedema management in order for her wounds to heal. She refuses compression. She is noncompliant with elevating her legs. She states she is unable to use her lymphedema pumps at this time due to the size of her legs. Since January 2020, several wound care treatments have been utilized, including Aquacel, Aquacel Ag, Devika. She has completed several applications of advanced skin substitutes (Apligraf, Puraply, and Nushield). Progress of Wound: Patient has had worsening of her wound size and appearance in recent weeks. She has had copious amounts of clear drainage from her right lower extremity, particularly from the anterior RLE. She has severe excoriation of the anterior RLE, as well as new areas of ulceration. She reports she has been changing her super sorb dressings approximately 4 times daily, and they have been saturated when changed. She is using Aquacel Ag to her right lower extremity anterior and posterior ulcers. She again states that she has not been using her lymphedema pumps often, but has been trying to use them more. She does not elevate her leg regularly. She does not use compression. She has not rescheduled her appointment with the lymphedema specialist at the [facility]. She expresses reluctance about lymphedema surgery, stating she knows people who have had surgery and has had numerous complications, as well as healthcare providers that recommend exhausting conservative treatment efforts prior to consideration of surgery. The patient denies fever, general malaise, or poor appetite. The patient has not had purulent/malodorous drainage from affected area. Objective Data Objective Data Vital Signs: Vital Signs Temp Pulse Resp BP 97.0 F L 75 16 148/73 H 02/05/21 08:24 02/05/21 08:24 02/05/21 08:24 02/05/21 08:24 Body Mass Index (BMI) 49.0 Charges/Coding Procedures Integumentary 111xxx-113xx: 77684 Shante subq tissue 20 sq cm/< Add On Codes: 11886 Shante subq tissue add-on (x6) Physical Exam Const alert and no apparent distress General Appearance: cooperative, comfortable and well kempt Nutritional Appearance: morbidly obese HEENT Head and Scalp: normocephalic and atraumatic Neck supple Lymph Lymphatic: lymphedema severe (worse in RLE) Resp normal respiratory effort Cardio Peripheral Pulses: dorsalis pedis pulses present right 1+ Extremity normal capillary refill and no joint enlargement General Extremity: edema bilateral lower extremity Details: severe; Negative for clubbing or cyanosis Skin Rashes: rashes noted distal RLE Narrative: bright red excoriation present, likely d/t copious amount of drainage and moisture trapping excoriation moderate Wounds: wounds noted drainage serous, No malodorous, no odor and surrounding erythema Wound Narrative: Copious amounts of clear drainage from her distal RLE. No purulent/malodorous drainage. Proximal anterior RLE ulcer cluster, with new open areas of ulceration. Large amount of slough and devitalized tissue present. Subcutaneous layer exposed. No tunneling, undermining, or probing to bone. Mild periulcer warmth. Severe periulcer erythema and excoriation present. Moderate tenderness to palpation of the anterior RLE. RLE posterior ulcer with moderate amount of slough and devitalized tissue present. Moderate periulcer erythema and excoriation present. No periulcer warmth. No tunneling, undermining, or probing to bone. Neuro oriented x3, moves all extremities and no focal motor deficits Psych mental status grossly normal, cooperative and affect normal Debridement Note Debridement Note Wound debrided: Anterior RLE ulcer cluster Laterality: Right Type of Debridement: Excisional debridement Anesthesia Used: 4% Lidocaine Solution and Cetacaine Depth: in the subcutaneous layer Percentage of wound debrided: 100 Instrument Used: 7mm curette Tissue Removed: Slough and devitalized tissue Severity: Fat Layer Exposed Amount of bleeding with debridement: Mild Bleeding Controlled with: Pressure Patient tolerated procedure: Patient did not tolerate procedure well Post-Debridement Measurements and Additional Note: Post-Debridement Measurements/Treatment WC - Nurse 1 - General Ulcer Assessment Start: 02/05/21 08:24 Freq: Status: Active Protocol: SAL Activity Type Activity Date Activity User E-Sign Co-Sign Detail Recorded Client Recorded Date Recorded By Document 02/05/21 08:24 ML [id number] 02/05/21 08:28 ML 02/05/21 08:24 WC - Today's Visit Information Type of service Follow-up Visit (Physician/FLAT CUTTER ) Arrival Mode Ambulatory,Cane Transfer Assistance Manual Patient Identification Verified (Name & No ) Patient Requires Transmission-Based No Precautions Safety Precautions NA Height and Weight Body Mass Index (BMI) 49.0 BMI Classification Obese Vital Signs Temperature (97.8 F-99.1 F) 97.0 F L Temperature Source Oral Pulse Rate (60-100) 75 Pulse Location Monitor Respiratory Rate (12-18) 16 Respiratory rate source Observation Blood Pressure (90/60-120/80) 148/73 H Blood Pressure Mean (mm Hg) 98 Source Monitor Position Sitting Blood Pressure Location Left Arm History Since Last Visit- (Skip if this is Patient's initial visit) Have you changed medications since your No last visit? Any new allergies or adverse reactions No Had a fall/change in ADL's that may No increase risk of falls Signs or symptoms of abuse and/or No neglect since last visit Have you been in the hospital since your No last visit? Has dressing in place as prescribed Yes Has compression in place as prescribed N/A Has offloadiing in place as prescribed N/A Experienced any changes in pain level or No management Left Footwear Regular Shoe Right Footwear Regular Shoe Pain Scale: 0-10 Numeric Is Patient Pain Free? Yes CHRISTIANNE - Nurse 1 - General Ulcer Measurement Start: 02/05/21 08:24 Freq: Status: Active Protocol: Activity Type Activity Date Activity User E-Sign Co-Sign Detail Recorded Client Recorded Date Recorded By Document 02/05/21 08:24 ML [id number] 02/05/21 08:28 ML 02/05/21 08:24 Wound Center Nurse 1 #8 RLE Post -Current Size (cm) - Length 5 -Current Size (cm) - Width 4 -Current Size (cm) - Depth 0.1 -Total Square Cm 20 -Exudate Amt Large -Exudate Type Yellow/Green -Wound Margin Distinct, Outline Attached -Granulation Amt Medium (34-66%) -Granulation Quality Red -Slough/Fibrin Yes -Necrosis Amt Large (67-100%) -Necrotic Tissue Type Adherent Slough -Texture (Irene-wound Skin Appearance) Assessed -Moisture (Irene-wound Skin Appearance) Assessed -Color (Irene-wound Skin Appearance) Assessed -Temperature (Irene-wound Skin No Abnormality Appearance) (Pt Warm) -Tenderness on Palpation (Irene-wound No Skin Appearance) -Ulcer Cleansing Soap and Water -Foul Odor after Cleansing No -Anesthetic Used 4% Lidocaine Solution #7 RLE Ant Cluster -Current Size (cm) - Length 10 -Current Size (cm) - Width 9.2 -Current Size (cm) - Depth 0.1 -Total Square Cm 92.0 -Exudate Amt Large -Exudate Type Yellow/Green -Wound Margin Distinct, Outline Attached -Granulation Amt Medium (34-66%) -Slough/Fibrin Yes -Necrosis Amt Medium (34-66%) -Necrotic Tissue Type Adherent Slough -Texture (Irene-wound Skin Appearance) Assessed -Moisture (Irene-wound Skin Appearance) Assessed -Color (Irene-wound Skin Appearance) Assessed -Temperature (Irene-wound Skin No Abnormality Appearance) (Pt Warm) -Tenderness on Palpation (Irene-wound No Skin Appearance) -Ulcer Cleansing Soap and Water -Foul Odor after Cleansing No -Anesthetic Used 4% Lidocaine Solution CHRISTIANNE - Nurse 2 - General Ulcer CM Notes Start: 02/05/21 08:24 Freq: Status: Active Protocol: Activity Type Activity Date Activity User E-Sign Co-Sign Detail Recorded Client Recorded Date Recorded By Document 02/05/21 09:16 PL [id number] 02/05/21 09:20 PL 02/05/21 09:16 Wound Center Nurse 2 #8 RLE Post -Time 08:45 -Correct Patient Yes -Correct Side, Site, Position Yes -Correct Procedure Yes -Procedure Performed Yes -Type of Procedure Debridement -Clinical Debridement Subcutaneous -Tissue Removed Subcutaneous -Post Debridement (cm) - Length 4.6 -Post Debridement (cm) - Width 4.7 -Post Debridement (cm) - Depth 0.1 -Total Square (Post) (cm) 21.62 -Area of Debridement (cm) - Length 4.6 -Area of Debridement (cm) - Width 4.7 -Total Square (Area) (cm) 21.62 -Tunneling No -Undermining/Tunneling No -Circular Undermining No -Wound/Ulcer Outcome Not Healed -Ulcer Cleansing Rinsed/ Irrigated with Saline -Foul Odor after Cleansing No -Bioengineered Tissue No -Bleeding Controlled with Pressure -Treatment Response Procedure Tolerated Well -Debridement - Subq, 1st 20sq cm No -Debridement, SubQ, ea addt'l 20sq cm 1 or part thereof #7 RLE Ant Cluster -Time 08:45 -Correct Patient Yes -Correct Side, Site, Position Yes -Correct Procedure Yes -Procedure Performed Yes -Type of Procedure Debridement -Clinical Debridement Subcutaneous -Tissue Removed Subcutaneous -Post Debridement (cm) - Length 11.0 -Post Debridement (cm) - Width 10.5 -Post Debridement (cm) - Depth 0.1 -Total Square (Post) (cm) 115.50 -Area of Debridement (cm) - Length 11.0 -Area of Debridement (cm) - Width 10.5 -Total Square (Area) (cm) 115.50 -Tunneling No -Undermining/Tunneling No -Circular Undermining No -Wound/Ulcer Outcome Not Healed -Ulcer Cleansing Rinsed/ Irrigated with Saline -Foul Odor after Cleansing No -Bioengineered Tissue No -Bleeding Controlled with Pressure -Treatment Response Procedure Tolerated Well -Debridement - Subq, 1st 20sq cm Yes -Debridement, SubQ, ea addt'l 20sq cm 5 or part thereof WC - Nurse 3 - General Ulcer D/C NN Start: 02/05/21 08:24 Freq: Status: Active Protocol: Activity Type Activity Date Activity User E-Sign Co-Sign Detail Recorded Client Recorded Date Recorded By Document 02/05/21 09:12 ML [id number] 02/05/21 09:13 ML 02/05/21 09:12 Wound Care Nurse 3 #8 RLE Post -Ulcer Cleansing Rinsed/ Irrigated with Saline -Primary Dressing Applied Aquacel AG 4x4 -Other Dressing SUPER ABSORB -Primary Dressing Covered/Secured with Dry Gauze & Roll Gauze, Secured with Tape -Aquacel AG 4x4 1 #7 RLE Ant Cluster -Ulcer Cleansing Rinsed/ Irrigated with Saline -Primary Dressing Applied Aquacel AG 4x4 -Other Dressing SUPER ABSORB -Primary Dressing Covered/Secured with Dry Gauze & Roll Gauze, Secured with Tape -Aquacel AG 4x4 0 WC - Visit Discharge Discharge Condition Stable Ambulatory Status Ambulatory,Cane Medication Reconcilliation completed & No provided to patient/care provider Clinical Summary of Care Provided Yes Additional Wound Wound debrided: Posterior RLE ulcer Laterality: Right Type of Debridement: Excisional debridement Anesthesia Used: 4% Lidocaine Solution and Cetacaine Depth: in the subcutaneous layer Percentage of wound debrided: 100 Instrument Used: 7mm curette Tissue Removed: Slough and devitalized tissue Severity: Fat Layer Exposed Amount of bleeding with debridement: Mild Bleeding Controlled with: Pressure Patient tolerated procedure: Patient tolerated procedure well Assessment/Plan Assessment/Plan (1) Ulcer of right lower extremity with fat layer exposed: CODE(S): L97.912 - Non-pressure chronic ulcer of unspecified part of right lower leg with fat layer exposed (2) Venous ulcer of right leg: CODE(S): I83.019 - Varicose veins of right lower extremity with ulcer of unspecified site; L97.919 - Non-pressure chronic ulcer of unspecified part of right lower leg with unspecified severity (3) Nonhealing ulcer of right lower extremity: CODE(S): L97.919 - Non-pressure chronic ulcer of unspecified part of right lower leg with unspecified severity QUALIFIERS: Non-pressure ulcer stage: with fat layer exposed Qualified Code(s): L97.912 - Non-pressure chronic ulcer of unspecified part of right lower leg with fat layer exposed (4) Venous insufficiency: (5) Cellulitis of right lower extremity: CODE(S): L03.115 - Cellulitis of right lower limb (6) Lymphedema: CODE(S): I89.0 - Lymphedema, not elsewhere classified (7) Morbid obesity: CODE(S): E66.01 - Morbid (severe) obesity due to excess calories (8) Excoriation of right lower leg: CODE(S): S80.811A - Abrasion, right lower leg, initial encounter QUALIFIERS: Encounter type: initial encounter Qualified Code(s): S80.811A - Abrasion, right lower leg, initial encounter PLAN: Given the duration of the venous leg ulcers and failure of the ulcers to respond to standard wound care, we applied and were approved for Puraply, Nushield, and Apligraf. The patient had previously completed 6 applications of Puraply to the posterior RLE ulcer. Puraply was then discontinued due to failure of the wound to improve in size and appearance, which I suspect was due to the patient's inability to tolerate thorough debridement and refusal to appropriately utilize compression/leg elevation. With an increase in the use of her lymphedema pumps and multiple approaches to wound debridement, the patient's wound sizes improved and bioburden was reduced. Advanced skin substitutes were again applied for and approved. Of the 10 approved applications, she received 1 Puraply application, 5/5 Apligraf applications, and 4 Nushield applications. Her wounds continue to fluctuate in size, which I suspect is in part due to the fluctuation of her edema. In recent weeks, her edema has been more severe. She has had significant weeping edema from the anterior RLE ulcer cluster. Ultrasonic debridement was previously performed to both anterior ulcers and the posterior ulcer of the right lower extremity, though I do not feel this provided as thorough debridement as using a curette. Ultrasonic debridement may be attempted again in the future using a curette tip. Excisional debridement was performed today as annotated above. Aquacel Ag was applied to the anterior and posterior RLE ulcers today. Supersorb dressings placed atop for moisture control. At home wound-care instructions: Perform Aquacel Ag dressing changes daily. Wash wound prior to each dressing change, using antibacterial soap and water; rinse and dry thoroughly. Cover with super sorb dressing for moisture control. Change outer dressings as needed due to saturation, to prevent excess moisture against the skin. She was instructed to begin Desitin or A&D ointment daily to the periulcer areas for barrier protection due to increased moisture exposure. We discussed at length that her excoriation will most likely persist and worsen if she does not use compression or elevate her legs. In the evenings, elevate right lower extremity and leave open to air to reduce moisture trapping and excoriation. Compression: The patient admits she has not been using her lymphedema pumps regularly. I have discussed with patient several times that lymphedema pumps should be utilized for 1 hour 3 times per day. If this is not well-tolerated, the patient should continue to use the pumps as long and as frequently as possible, working toward this goal. Due to difficulty fitting her legs into the lymphedema pumps, it was recommended that she begin using the lymphedema pumps first thing in the morning, when her swelling should be at its minimum. She had reported she was working with the company to obtain a bigger size and/or a new pump if necessary, though she has been able to use them with the Velcro straps more recently. At this time, we were told by [employer] that they have no compression available in the patient's size. We have been able to find customizable sizing options for compression. The patient was advised to utilize her thigh-high CircAid's in the evenings and use her lymphedema pumps 3 times daily beginning first thing in the morning in efforts to reduce the swelling/circumference of her legs and enable her to obtain knee-high CircAid's. She has not been compliant with this. Previous attempts to wrap her legs have been unsuccessful, according to the patient. She states her wraps fall down before she even gets out to her car. Despite numerous discussions and approaches to compression and edema reduction, the patient has been generally noncompliant. I am hopeful that she will resume use of lymphedema pumps as instructed. Off-loading: The patient was instructed to avoid pressure and friction on the affected areas. Reposition every 2 hours at minimum. Avoid prolonged standing and/or dangling of legs. When seated, feet should be elevated at chest level. Frequent ambulation is encouraged. She has been noncompliant with elevation of her legs. She frequently is seated in a car or at a desk, and does not elevate her feet. She reports it is just too difficult for her to keep her feet up with her daily schedule. Diet: Patient encouraged to increase protein intake while taking caution to avoid high carbohydrate and/or sugar intake. Labs/cultures/imaging: Her wound culture from 10/23/2020 was positive for 1+ Enterobacter cloacae complex, rare Proteus vulgaris, rare MRSA, and 1+ corynebacterium striatum. She was given a course of Levaquin 500 mg daily x10 days, which she has completed. Repeat wound cultures collected from the anterior RLE ulcer today due to increased size and erythema. Venous and arterial studies were previously ordered in September 2020, though the patient never had these done. These were again ordered in late December 2020, but have not yet been completed. I have advised the patient that this information would be extremely helpful. She was again encouraged to get these done. Given the patient's delayed healing, a wound biopsy was recommended on multiple occasions to evaluate for other potential causes for delayed healing; the patient refused. Labs from August 2020 were reviewed as follows: CBCD: Platelets 131 (L) Hemoglobin A1c: 5.6% TSH: Normal Vitamin D: Normal Vitamin B12: Normal CMP: Glucose 104 (H) Lipid panel: LDL 113 (H), triglycerides 182 (H) Follow-up: Consult with lymphedema specialist at [facility] on 01/14/2021 was cancelled by patient due to reported transportation issues. The importance of this consultation has been discussed at length with the patient. Return to clinic in 2 weeks for reevaluation with Dr. Desai (vascular). Return sooner or report to the emergency room should symptoms worsen, or new symptoms arise. It has been discussed with the patient on numerous occasions, and again today, that previous and current wound management efforts have not been effective, and this is largely in part to her uncontrolled lymphedema/edema. It was again discussed with the patient that the ongoing wounds of her right lower extremity are predisposing her to risk for infection, sepsis, and ultimately she is at risk of amputation or even should her wounds become severely infected. Note: [employer] speech recognition concrete laborer software was used to create portions of this document. Sound-alike and misspelled words, as well as other concrete laborer errors may be contained in the documentation.
[2021-02-16 08:48] VITALS: BP 130/49; PULSE 72; RESP 16; TEMP 36.1; BMI 49.0
--- NOTE | 2021-02-16 15:05 | PCM.WC.HP ---
History of Present Illness Date of Service: 02/16/21 Chief Complaint: Severe swelling, edema, and lymphedema in the patient's lower extremities bilaterally History of Wound: This is a 60-year-old female with severe swelling, edema, and lymphedema in the lower extremities. This is a process which is bilateral. She also currently has a very large circumferential wound on the distal right calf, just above the malleoli. The patient's past medical records have been thoroughly reviewed. Her recent provision of care at the [facility] appears to be appropriate. A request for consultation has been made to evaluate the and to determine whether there are additional measures to be implemented and treatment for the patient aforementioned conditions. It appears as though prior recommendations are appropriate, but that the patient's lack of compliance has resulted in a failure of improvement. Measures previously recommended, and appropriate to the patient's care, include leg elevation, avoidance of prolonged idle sitting, compression of at least 20 to 30 mmHg compression, the use of pneumatic mechanical compression pumps, efforts at weight loss, etc. It is well-documented within the patient's medical record that these measures have not been implemented by the patient to any significant degree, indicating poor compliance. The patient has mechanical pneumatic compression pumps in her possession, which she does not use as recommended. She has been referred for consultation to the [facility], but has failed to follow through with the appointment. It appears as though she is not implemented any weight loss efforts, despite a BMI of 50.2. She has been referred for specialty consultation at a tertiary care facility, the [facility], but has failed to follow through with her appointment. As result of the patient's noncompliance, the ulceration on the distal right lower extremity has worsened. She is currently using Aquacel Ag and calmoseptine topically to the surrounding skin. [facility] Medical History Anxiety Carpal tunnel syndrome Cellulitis of right thigh Depression Excoriation of right lower leg H/O blood clots HTN (hypertension) Hypothyroidism IBS (irritable bowel syndrome) Nonhealing ulcer of right lower extremity Sleep apnea Stomach ulcer UTI (urinary tract infection) Vitamin deficiency Home Medications carvedilol 25 mg PO BID 10/15/14 [History Last Taken Unknown] losartan 25 mg PO DAILY 10/15/14 [History Last Taken Unknown] jtwwopbw-qrz-kcsr-FA-lutein 1 ea PO DAILY 05/11/16 [History Last Taken Unknown] apixaban 5 mg tablet 5 mg PO BID 01/11/18 [History Last Taken Unknown] bupropion HCl 150 mg 24 hr tablet, extended release 300 mg PO QAM tab 01/11/18 [History Last Taken Unknown] levothyroxine 175 mcg tablet 175 mcg PO .COMPLEX #48 tab 01/11/18 [Rx Last Taken Unknown] levofloxacin 500 mg PO Q24H #10 tab 02/05/21 [Rx Last Taken Unknown] amoxicillin-pot clavulanate 875 mg PO Q12H #20 tablet 02/09/21 [Rx Last Taken Unknown] doxycycline monohydrate 100 mg PO BID #20 capsule 02/09/21 [Rx Last Taken Unknown] Allergy/AdvReac Type Severity Reaction Status Date / Time adhesive tape Allergy Unknown Unknown Verified 02/09/21 13:03 Family History Mother Colon cancer Father Melanoma Surgical History H/O dilation and curettage Social History Smoking Status: Never smoker second hand exposure: No alcohol intake: never substance use type: does not use Vital Signs Vital Signs Vital Signs: 02/16/21 08:48 Temperature 96.9 F L Temperature Source Temporal Pulse Rate 72 Respiratory Rate 16 Blood Pressure 130/49 H Blood Pressure Mean 76 Blood Pressure Source Monitor Blood Pressure Position Sitting Blood Pressure Location Left Forearm Oxygen Delivery Method Room Air Weight Body Mass Index (BMI) 49.0 Physical Exam Const alert, oriented x3, no apparent distress and well nourished Constitutional Narrative: The patient is morbidly obese. General Appearance: cooperative and well developed Orientation / Consciousness: awake, oriented to person, oriented to place and oriented to time HEENT normocephalic and head/scalp atraumatic Head and Scalp: normal to inspection, normocephalic and atraumatic External Ear: external ears normal Eyes PERRL and EOMs intact bilaterally General Eye: normal appearance of both eyes Resp normal respiratory effort, normal air movement, no retractions and no use of accessory muscles Effort and Inspection: able to speak in complete sentences Extremity no calf tenderness Extremity Narrative: Bilateral lower extremity swelling, edema, and lymphedema are noted. The degree of swelling, edema, and lymphedema is severe. General Extremity: Negative for clubbing or cyanosis Skin Wound Narrative: A large circumferential ulceration is noted on the distal right lower extremity, just proximal to the malleoli. Portions of the wound are open and full-thickness, extending into the subcutaneous tissues. It appears as though there is severe surrounding skin irritation and maceration. Dimensions are documented elsewhere. Neuro oriented x3, CN's II-XII intact bilaterally and moves all extremities Sensorium / Orientation: awake, alert, oriented to person, oriented to place and oriented to time Psych Appearance: grossly normal and appropriate Attitude: calm Activity / Motor Behavior: appropriate eye contact Speech: normal speech Mood & Affect: euthymic mood Thought Process: normal thought process Thought Content: normal thought content Attention / Concentration: attention grossly intact Debridement Note Debridement Note No debridement was completed: No debridement was completed today Post-Debridement Measurements and Additional Note: Post-Debridement Measurements/Treatment - Nurse 1 - General Ulcer Assessment Start: 02/05/21 08:24 Freq: Status: Active Protocol: WC.DINESH Activity Type Activity Date Activity User E-Sign Co-Sign Detail Recorded Client Recorded Date Recorded By Document 02/05/21 08:24 [id number] 02/05/21 08:28 Document 02/16/21 08:48 [facility] [id number] 02/16/21 08:56 BM 02/05/21 02/16/21 08:24 08:48 - Today's Visit Information Type of service Follow-up Visit Follow-up Visit (Physician/ENVIRONMENTAL STUDIES PROGRAM DIRECTOR (Physician/ENVIRONMENTAL STUDIES PROGRAM DIRECTOR ) ) Arrival Mode Ambulatory,Cane Ambulatory,Cane Transfer Assistance Manual None Patient Identification Verified (Name & No Yes ) Patient Requires Transmission-Based No No Precautions Safety Precautions NA Height and Weight Body Mass Index (BMI) 49.0 49.0 BMI Classification Obese Obese Vital Signs Temperature (97.8 F-99.1 F) 97.0 F L 96.9 F L Temperature Source Oral Temporal Pulse Rate (60-100) 75 72 Pulse Location Monitor Monitor Respiratory Rate (12-18) 16 16 Respiratory rate source Observation Observation Oxygen Delivery Method Room Air Blood Pressure (90/60-120/80) 148/73 H 130/49 H Blood Pressure Mean 98 76 Source Monitor Monitor Position Sitting Sitting Blood Pressure Location Left Arm Left Forearm History Since Last Visit- (Skip if this is Patient's initial visit) Have you changed medications since your No No last visit? Any new allergies or adverse reactions No No Had a fall/change in ADL's that may No No increase risk of falls Signs or symptoms of abuse and/or No No neglect since last visit Have you been in the hospital since your No Yes last visit? Has dressing in place as prescribed Yes Yes Has compression in place as prescribed N/A No Has offloadiing in place as prescribed N/A N/A Experienced any changes in pain level or No No management Left Footwear Regular Shoe Regular Shoe Right Footwear Regular Shoe Regular Shoe Pain Scale: 0-10 Numeric Is Patient Pain Free? Yes Yes WC - Nurse 1 - General Ulcer Measurement Start: 02/05/21 08:24 Freq: Status: Active Protocol: Activity Type Activity Date Activity User E-Sign Co-Sign Detail Recorded Client Recorded Date Recorded By Document 02/05/21 08:24 ML [id number] 02/05/21 08:28 ML Document 02/16/21 08:48 BM [id number] 02/16/21 08:56 BM 02/05/21 02/16/21 08:24 08:48 Wound Center Nurse 1 #8 RLE Post -Combined with other wound No -Current Size (cm) - Length 5 5.4 -Current Size (cm) - Width 4 3.4 -Current Size (cm) - Depth 0.1 0.3 -Total Square Cm 20 18.36 -Photo Taken No -Epithelialization None Present -Tunneling No -Undermining/Tunneling No -Circular Undermining No -Exudate Amt Large Medium -Exudate Type Yellow/Green Serosanguineous -Wound Margin Distinct, Thickened Outline Attached -Granulation Amt Medium (34-66%) Large (67-100%) -Granulation Quality Red [place] -Slough/Fibrin Yes Yes -Necrosis Amt Large (67-100%) Small (1-33%) -Necrotic Tissue Type Adherent Slough Adherent Slough -Texture (Irene-wound Skin Appearance) Assessed Assessed -Moisture (Irene-wound Skin Appearance) Assessed Assessed -Color (Irene-wound Skin Appearance) Assessed Assessed, Erythema -Temperature (Irene-wound Skin No Abnormality No Abnormality Appearance) (Pt Warm) (Pt Warm) -Tenderness on Palpation (Irene-wound No No Skin Appearance) -Ulcer Cleansing Soap and Water Soap and Water -Foul Odor after Cleansing No No -Anesthetic Used 4% Lidocaine 4% Lidocaine Solution Solution #7 RLE Ant Cluster -Combined with other wound No -Current Size (cm) - Length 10 8 -Current Size (cm) - Width 9.2 11.5 -Current Size (cm) - Depth 0.1 0.3 -Total Square Cm 92.0 92.0 -Date of Last Picture (Recall this 02/16/21 field) -Photo Taken Yes -Epithelialization None Present -Tunneling No -Undermining/Tunneling No -Circular Undermining No -Exudate Amt Large Large -Exudate Type Yellow/Green Serosanguineous -Wound Margin Distinct, Distinct, Outline Outline Attached Attached -Granulation Amt Medium (34-66%) Medium (34-66%) -Granulation Quality Red -Slough/Fibrin Yes Yes -Necrosis Amt Medium (34-66%) Medium (34-66%) -Necrotic Tissue Type Adherent Slough Adherent Slough -Texture (Irene-wound Skin Appearance) Assessed Assessed, Excoriation, Scarring -Moisture (Irene-wound Skin Appearance) Assessed Assessed -Color (Irene-wound Skin Appearance) Assessed Assessed, Erythema -Temperature (Irene-wound Skin No Abnormality No Abnormality Appearance) (Pt Warm) (Pt Warm) -Tenderness on Palpation (Irene-wound No Yes Skin Appearance) -Ulcer Cleansing Soap and Water Soap and Water -Foul Odor after Cleansing No No -Anesthetic Used 4% Lidocaine 4% Lidocaine Solution Solution Lower Limb Edema Present Yes Right Calf (cm) 72.5 Right Ankle (cm) 35.2 WC - Nurse 2 - General Ulcer CM Notes Start: 02/05/21 08:24 Freq: Status: Active Protocol: Activity Type Activity Date Activity User E-Sign Co-Sign Detail Recorded Client Recorded Date Recorded By Document 02/05/21 09:16 PL [id number] 02/05/21 09:20 PL 02/05/21 09:16 Wound Center Nurse 2 #8 RLE Post -Time 08:45 -Correct Patient Yes -Correct Side, Site, Position Yes -Correct Procedure Yes -Procedure Performed Yes -Type of Procedure Debridement -Clinical Debridement Subcutaneous -Tissue Removed Subcutaneous -Post Debridement (cm) - Length 4.6 -Post Debridement (cm) - Width 4.7 -Post Debridement (cm) - Depth 0.1 -Total Square (Post) (cm) 21.62 -Area of Debridement (cm) - Length 4.6 -Area of Debridement (cm) - Width 4.7 -Total Square (Area) (cm) 21.62 -Tunneling No -Undermining/Tunneling No -Circular Undermining No -Wound/Ulcer Outcome Not Healed -Ulcer Cleansing Rinsed/ Irrigated with Saline -Foul Odor after Cleansing No -Bioengineered Tissue No -Bleeding Controlled with Pressure -Treatment Response Procedure Tolerated Well -Debridement - Subq, 1st 20sq cm No -Debridement, SubQ, ea addt'l 20sq cm 1 or part thereof #7 RLE Ant Cluster -Time 08:45 -Correct Patient Yes -Correct Side, Site, Position Yes -Correct Procedure Yes -Procedure Performed Yes -Type of Procedure Debridement -Clinical Debridement Subcutaneous -Tissue Removed Subcutaneous -Post Debridement (cm) - Length 11.0 -Post Debridement (cm) - Width 10.5 -Post Debridement (cm) - Depth 0.1 -Total Square (Post) (cm) 115.50 -Area of Debridement (cm) - Length 11.0 -Area of Debridement (cm) - Width 10.5 -Total Square (Area) (cm) 115.50 -Tunneling No -Undermining/Tunneling No -Circular Undermining No -Wound/Ulcer Outcome Not Healed -Ulcer Cleansing Rinsed/ Irrigated with Saline -Foul Odor after Cleansing No -Bioengineered Tissue No -Bleeding Controlled with Pressure -Treatment Response Procedure Tolerated Well -Debridement - Subq, 1st 20sq cm Yes -Debridement, SubQ, ea addt'l 20sq cm 5 or part thereof WC - Nurse 3 - General Ulcer D/C NN Start: 02/05/21 08:24 Freq: Status: Active Protocol: Activity Type Activity Date Activity User E-Sign Co-Sign Detail Recorded Client Recorded Date Recorded By Document 02/05/21 09:12 ML [id number] 02/05/21 09:13 ML Document 02/16/21 09:32 BM [id number] 02/16/21 09:33 BMF 02/05/21 02/16/21 09:12 09:32 Wound Care Nurse 3 #8 RLE Post -Ulcer Cleansing Rinsed/ Rinsed/ Irrigated with Irrigated with Saline Saline -Foul Odor after Cleansing No -Primary Dressing Applied Aquacel AG 4x4 Aquacel Extra, Optilok 8x12 -Other Dressing SUPER ABSORB -Primary Dressing Covered/Secured with Dry Gauze & Roll Gauze, Secured with Tape -Other Covering UNNA -Aquacel Extra 2 -Aquacel AG 4x4 1 -Optilok 8x12 2 #7 RLE Ant Cluster -Ulcer Cleansing Rinsed/ Rinsed/ Irrigated with Irrigated with Saline Saline -Foul Odor after Cleansing No -Primary Dressing Applied Aquacel AG 4x4 Aquacel Extra, Optilok 8x12 -Other Dressing SUPER ABSORB -Primary Dressing Covered/Secured with Dry Gauze & Roll Gauze, Secured with Tape -Other Covering UNNA -Aquacel Extra 0 -Aquacel AG 4x4 0 -Optilok 8x12 0 Right -Multi-Layered Wrap Application Unna Boot - Right ($) -Compression Wrap Unna Boot ($) ( single) Treatment Response Procedure Tolerated Well Pain Scale: 0-10 Numeric Is Patient Pain Free? Yes WC - Visit Discharge Discharge Condition Stable Stable Ambulatory Status Ambulatory,Cane Ambulatory,Cane Transportation Private Auto Medication Reconcilliation completed & No provided to patient/care provider Clinical Summary of Care Provided Yes Assessment/Plan Assessment/Plan (1) Ulcer of right lower extremity with fat layer exposed: CODE(S): L97.912 - Non-pressure chronic ulcer of unspecified part of right lower leg with fat layer exposed (2) Nonhealing ulcer of right lower extremity: CODE(S): L97.919 - Non-pressure chronic ulcer of unspecified part of right lower leg with unspecified severity QUALIFIERS: Non-pressure ulcer stage: with fat layer exposed Qualified Code(s): L97.912 - Non-pressure chronic ulcer of unspecified part of right lower leg with fat layer exposed (3) Lymphedema: CODE(S): I89.0 - Lymphedema, not elsewhere classified (4) Venous ulcer of left leg: CODE(S): I83.029 - Varicose veins of left lower extremity with ulcer of unspecified site; L97.929 - Non-pressure chronic ulcer of unspecified part of left lower leg with unspecified severity (5) Leg swelling: CODE(S): M79.89 - Other specified soft tissue disorders (6) Leg edema: CODE(S): R60.0 - Localized edema (7) Excoriation of right lower leg: CODE(S): S80.811A - Abrasion, right lower leg, initial encounter QUALIFIERS: Encounter type: initial encounter Qualified Code(s): S80.811A - Abrasion, right lower leg, initial encounter (8) Dependent edema: CODE(S): R60.9 - Edema, unspecified (9) Chronic venous insufficiency: CODE(S): I87.2 - Venous insufficiency (chronic) (peripheral) (10) Hypothyroidism: CODE(S): E03.9 - Hypothyroidism, unspecified QUALIFIERS: Hypothyroidism type: unspecified Qualified Code(s): E03.9 - Hypothyroidism, unspecified (11) Delayed wound healing: CODE(S): T14.8 - Other injury of unspecified body region (12) Morbid obesity: CODE(S): E66.01 - Morbid (severe) obesity due to excess calories PLAN: This is a morbidly obese 60-year-old female with symptoms and manifestations which appear to be characteristic for lymphedema. In reviewing the patient's medical records, and interacting with the patient, it appears as though the appropriate recommendations have been conveyed to the patient in the past. The patient appears cognizant of prior recommendations, such as leg elevation, avoidance of prolonged idle sitting, compression, pneumatic mechanical compression pumps, weight loss measures, etc. Despite the patient's apparent cognitive understanding of the recommendations, she has failed to implement the recommended measures to any significant degree. As result, there has been a lack of improvement, and frankly clinical deterioration. Prior measures, as recommended, appear appropriate. Any additional diagnostic and treatment treatment options exceed that which is available at our local facility. It is noted that the patient has been referred to a specialist at the [facility], which appears to be appropriate. However, the patient has failed to follow through. A lengthy and detailed discussion has been undertaken with the patient in an effort to convey the importance of the aforementioned treatment measures. It appears as though these efforts have been undertaken in the past, to no avail. The patient is to follow-up with Lula Huggins, nurse practitioner. Total time: 65 minutes
[2021-02-19 14:12] VITALS: TEMP 35.9; BMI 49.0
[2021-03-02 13:15] VITALS: RESP 22; TEMP 36.3; BMI 49.0
== END 2021-03-02 23:59 ==
LOC: WC 13:00
PROVIDERS: PCP Family Medicine; Visit Provider Nurse Practitioner Family
DX: I83.018 Varicose veins of right lower extremity with ulcer other part of lower leg (principal); L97.812 Non-pressure chronic ulcer of other part of right lower leg with fat layer exposed; I83.028 Varicose veins of left lower extremity with ulcer other part of lower leg; L97.829 Non-pressure chronic ulcer of other part of left lower leg with unspecified severity; L03.115 Cellulitis of right lower limb; I89.0 Lymphedema, not elsewhere classified; M79.89 Other specified soft tissue disorders; I87.2 Venous insufficiency (chronic) (peripheral); I48.91 Unspecified atrial fibrillation; K58.9 Irritable bowel syndrome, unspecified; I10 Essential (primary) hypertension; E03.9 Hypothyroidism, unspecified; G47.30 Sleep apnea, unspecified; F32.A Depression, unspecified; F41.9 Anxiety disorder, unspecified; Z91.19 Patient's noncompliance with other medical treatment and regimen; E66.01 Morbid (severe) obesity due to excess calories; Z68.43 Body mass index [BMI] 50.0-59.9, adult; Z79.01 Long term (current) use of anticoagulants; Z79.890 Hormone replacement therapy; Z79.899 Other long term (current) drug therapy; Z86.718 Personal history of other venous thrombosis and embolism
CPT/HCPCS: 11042; 11045; 29580; 29581; 87070; 87075; 87077; 87186; 87205; 99213; G0463

== ENCOUNTER 2021-04-01 11:30 | Outpatient (RCR) | payer MEDICAID, SELFPAY ==
[2021-03-03 00:15] VITALS: BP 130/49; PULSE 72; RESP 22; TEMP 36.3; BMI 49.0
[2021-03-05 08:35] VITALS: BP 155/103; PULSE 68; TEMP 35.3; BMI 49.0
--- NOTE | 2021-03-05 12:55 | PN.PCM_ITS ---
History of Present Illness Date of Service: 03/05/21 Chief Complaint: Ulcers of right lower extremity History of Wound: [facility] for evaluation and treatment of bilateral lower leg ulcers. The patient is [facility] treatment of prior lower extremity ulcers. She has a PMH significant for chronic lymphedema, venous insufficiency, atrial fibrillation (on Eliquis), morbid obesity, and hypothyroidism. She reported development of her posterior right lower leg ulcer in April 2019. She initially was using Manuka honey to this ulcer, but then started using Vaseline instead. She reported her anterior right lower extremity ulcer developed in August, and she had been applying Vaseline to this daily. Her anterior left lower extremity ulcer developed approximately 1 week prior to her initial January 2020 appt, and she had been applying Vaseline to this daily as well. She notes that approximately 4 to 6 weeks prior, the ulcer on her posterior right lower leg began increasing in soreness. She has lymphedema pumps at home, but had not been using these due to reported pain with use which is related to her ulcers. She does not use compression at home. She reports frequent dangling of her legs while seated at her computer for work. She does not frequently elevate her feet when seated. The patient denied any fever, chills, nausea, vomiting, or diarrhea on initial evaluation. She denied any increasing redness or swelling of the affected area at that time as well. She did note foul-smelling drainage from her right lower extremity. She had not been on any recent antibiotics prior to evaluation. She reported having lab work done approximately 6 weeks prior; these records were requested for review multiple times but never obtained. Lab work was ordered and completed in February 2020 and was significant for the following: CBCD: RBC 3.83 (L), hemoglobin 11.3 (L), hematocrit 34.8 (L), platelets 143 (L) ESR: 93 (H) CMP: Albumin 3.0 (L) CRP: 111 (H) Prealbumin 18.6 (L) She had lower extremity arterial studies completed 05/16/16 which showed relatively normal arterial perfusion to ankle level bilaterally. Triphasic waveforms were noted at ankle level bilaterally. Resting ankle-brachial indices were bilaterally normal. The right digital-brachial index is normal, consistent with normal arterial perfusion at distal, small-vessel level in the right lower extremity. The left digital-brachial index is mildly diminished, suggesting the presence of mild, distal, small-vessel arterial occlusive disease in the left lower extremity. Venous and arterial studies were ordered on 09/11/2020, and the patient was scheduled for an appointment in September for these tests. However the tests were never completed. The patient has continually expressed reluctance regarding wound work-up, and noncompliance with orders. Wound cultures collected on 01/03/2020 were positive for 3+ Aeromonas hydrophilia/caviae, 2+ Citrobacter braakii, 1+ Proteus mirabilis, rare Staphylococus aureus, anaerobic cocci, actinomyces odontolyticus, Bacteroides fragilis; beta-lactamase positive. She completed courses of Levaquin and Augmentin. Weeks later, she developed redness and warmth of a localized lymphedema mass of her right medial thigh; this resolved following a 14-day course of Levaquin and Augmentin. She has continued to have fluctuating redness and warmth of this right medial thigh lymphedema mass. She has completed several courses of antibiotics. Keflex and Levaquin have been of benefit. Doxycycline was not felt to be of significant benefit. A referral to a lymphedema specialist at the [facility] was made, and the importance of scheduling this appointment was discussed with the patient. She has not yet scheduled this appointment. Several conversations have been had with the patient regarding her need for compression and lymphedema management in order for her wounds to heal. She refuses compression. She is noncompliant with elevating her legs. She states she is unable to use her lymphedema pumps at this time due to the size of her legs. Since January 2020, several wound care treatments have been utilized, including Aquacel, Aquacel Ag, Devika. She has completed several applications of advanced skin substitutes (Apligraf, Puraply, and Nushield). Progress of Wound: Patient has had worsening of her wound size and appearance in recent weeks. She has had copious amounts of clear drainage from her right lower extremity, particularly from the anterior RLE. She has severe excoriation of the anterior RLE, as well as new areas of ulceration. She reports she has been changing her super sorb dressings approximately 4 times daily, and they have been saturated when changed. She is using Aquacel Ag to her right lower extremity anterior and posterior ulcers. She again states that she has not been using her lymphedema pumps often, but has been trying to use them more. She does not elevate her leg regularly. She does not use compression. She has not rescheduled her appointment with the lymphedema specialist at the [facility]. She expresses reluctance about lymphedema surgery, stating she knows people who have had surgery and has had numerous complications, as well as healthcare providers that recommend exhausting conservative treatment efforts prior to consideration of surgery. Progress of Wound: The patient's wound cultures from 02/05/2021 were positive for 1+ Enterococcus faecalis, and rare MRSA. She was sent to the emergency department for IV antibiotic treatment. She received a dose of IV vancomycin 2000mg and was discharged on 10-day courses of doxycycline and Augmentin, which she has completed. Hospital labs are as follows: CBCD: Unremarkable CMP: Unremarkable Lactic acid: Normal INR: Normal The patient was seen by Dr. Desai on 02/16/2021 for [facility]. Aquacel Ag was continued, and the patient was started on Unna boots for compression and treatment of right lower extremity excoriation. I am very satisfied that the patient has been compliant with the use of Unna boots, and has been tolerating these well. The excoriation and drainage of the right lower extremity has improved with the use of Unna boots. Her wounds are stable. She denies fevers, poor appetite, or generalized malaise. She has a red, scaly rash at the right popliteal fossa, and it appears the Unna boot was causing friction in this area. Objective Data Objective Data Vital Signs: Vital Signs Temp Pulse Resp BP 95.6 F L 68 22 H 155/103 H 03/05/21 08:35 03/05/21 08:35 03/03/21 00:15 03/05/21 08:35 Body Mass Index (BMI) 49.0 Charges/Coding Procedures Integumentary 111xxx-113xx: 93904 Shante subq tissue 20 sq cm/< Add On Codes: 71981 Shante subq tissue add-on Physical Exam Const alert and no apparent distress General Appearance: cooperative, comfortable and well kempt Nutritional Appearance: morbidly obese HEENT Head and Scalp: normocephalic and atraumatic Neck supple Lymph Lymphatic: lymphedema severe (worse in RLE) Resp normal respiratory effort Cardio Peripheral Pulses: dorsalis pedis pulses present right 1+ Extremity normal capillary refill and no joint enlargement General Extremity: edema bilateral lower extremity Details: moderate; Negative for clubbing or cyanosis Skin Rashes: rashes noted distal RLE Narrative: bright red excoriation present, likely d/t copious amount of drainage and moisture trapping excoriation red dry, raised and warm scalloped moderate, Right popliteal fossa Wounds: wounds noted drainage serous, No malodorous, no odor and surrounding erythema Wound Narrative: No active drainage from her distal RLE. No purulent/malodorous drainage noted. Proximal anterior RLE ulcer cluster, with new open areas of ulceration. Large amount of slough and devitalized tissue present. Subcutaneous layer exposed. No tunneling, undermining, or probing to bone. Mild periulcer warmth. Significant periulcer erythema and excoriation present, though improved. Mild tenderness to palpation of the anterior RLE. RLE posterior ulcer with moderate amount of slough and devitalized tissue present. Moderate periulcer erythema and excoriation present. No periulcer warmth. No tunneling, undermining, or probing to bone. Neuro oriented x3, moves all extremities and no focal motor deficits Psych mental status grossly normal, cooperative and affect normal Debridement Note Debridement Note Wound debrided: Anterior RLE cluster Laterality: Right Type of Debridement: Excisional debridement Anesthesia Used: 4% Lidocaine Solution and Cetacaine Depth: in the subcutaneous layer Percentage of wound debrided: 100 Instrument Used: 7mm curette Tissue Removed: Slough and devitalized tissue Severity: Fat Layer Exposed Amount of bleeding with debridement: Mild Bleeding Controlled with: Compression and gauze Patient tolerated procedure: Patient tolerated procedure well Post-Debridement Measurements and Additional Note: Post-Debridement Measurements/Treatment - Nurse 1 - General Ulcer Assessment Start: 03/05/21 08:35 Freq: Status: Active Protocol: CHRISTIANNE.DINESH Activity Type Activity Date Activity User E-Sign Co-Sign Detail Recorded Client Recorded Date Recorded By Document 03/05/21 08:35 ROGERIO [id number] 03/05/21 08:39 ROGERIO 03/05/21 08:35 - Today's Visit Information Type of service Follow-up 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 Any new allergies or adverse reactions No Had a fall/change in ADL's that may No increase risk of falls Signs or symptoms of abuse and/or No neglect since last visit Have you been in the hospital since your No last visit? Has dressing in place as prescribed Yes Has compression in place as prescribed Yes Has offloadiing in place as prescribed N/A Experienced any changes in pain level or No management Left Footwear Regular Shoe Right Footwear Regular Shoe WC - Nurse 1 - General Ulcer Measurement Start: 03/05/21 08:35 Freq: Status: Active Protocol: Activity Type Activity Date Activity User E-Sign Co-Sign Detail Recorded Client Recorded Date Recorded By Document 03/05/21 08:35 MN [id number] 03/05/21 08:39 [place] 03/05/21 08:35 Wound Center Nurse 1 #8 RLE Post -Combined with other wound No -Current Size (cm) - Length 5 -Current Size (cm) - Width 3 -Current Size (cm) - Depth 0.1 -Total Square Cm 15 -Photo Taken No -Epithelialization None Present -Tunneling No -Undermining/Tunneling No -Circular Undermining No -Change in Wound Grade/Stage No -Exudate Amt Large -Exudate Type Serosanguineous -Wound Margin Distinct, Outline Attached -Slough/Fibrin Yes -Necrosis Amt Large (67-100%) -Necrotic Tissue Type Adherent Slough -Structure Exposed N/A -Texture (Irene-wound Skin Appearance) Assessed, Excoriation -Moisture (Irene-wound Skin Appearance) Assessed, Weeping -Color (Irene-wound Skin Appearance) Assessed -Temperature (Irene-wound Skin Hot Appearance) -Tenderness on Palpation (Irene-wound No Skin Appearance) -Ulcer Cleansing Soap and Water -Foul Odor after Cleansing No -Anesthetic Used 5% Lidocaine Gel #7 RLE Ant Cluster -Combined with other wound No -Current Size (cm) - Length 8 -Current Size (cm) - Width 10 -Current Size (cm) - Depth 0.1 -Total Square Cm 80 -Photo Taken No -Tunneling No -Undermining/Tunneling No -Circular Undermining No -Change in Wound Grade/Stage No -Exudate Amt Large -Exudate Type Serosanguineous -Wound Margin Distinct, Outline Attached -Granulation Quality N/A -Slough/Fibrin Yes -Necrosis Amt Large (67-100%) -Necrotic Tissue Type Adherent Slough -Structure Exposed N/A -Texture (Irene-wound Skin Appearance) Assessed -Moisture (Irene-wound Skin Appearance) Assessed, Maceration -Color (Irene-wound Skin Appearance) No Abnormality, Assessed -Temperature (Irene-wound Skin No Abnormality Appearance) (Pt Warm) -Tenderness on Palpation (Irene-wound No Skin Appearance) -Ulcer Cleansing Soap and Water -Foul Odor after Cleansing No -Anesthetic Used 5% Lidocaine Gel Right Calf (cm) 70.2 Right Ankle (cm) 31 - Nurse 3 - General Ulcer D/C NN Start: 03/05/21 08:35 Freq: Status: Active Protocol: Activity Type Activity Date Activity User E-Sign Co-Sign Detail Recorded Client Recorded Date Recorded By Document 03/05/21 09:10 MN [id number] 03/05/21 09:12 ROGERIO 03/05/21 09:10 Wound Care Nurse 3 #8 RLE Post -Ulcer Cleansing Rinsed/ Irrigated with Saline -Foul Odor after Cleansing No -Negative Pressure Wound Therapy N/A -Primary Dressing Applied Aquacel AG 4x4 -Aquacel AG 4x4 1 #7 RLE Ant Cluster -Ulcer Cleansing Rinsed/ Irrigated with Saline -Foul Odor after Cleansing No -Negative Pressure Wound Therapy N/A -Primary Dressing Applied Aquacel AG 4x4 -Aquacel AG 4x4 0 Right -Lotion applied to leg before No compression wrap -Multi-Layered Wrap Application Unna Boot - Right ($) WC - Visit Discharge Discharge Condition Stable Ambulatory Status Ambulatory,Cane Transportation Private Auto Medication Reconcilliation completed & No provided to patient/care provider Clinical Summary of Care Provided Yes Additional Wound Wound debrided: Posterior RLE ulcer Laterality: Right Type of Debridement: Excisional debridement Anesthesia Used: 4% Lidocaine Solution and Cetacaine Depth: in the subcutaneous layer Percentage of wound debrided: 100 Instrument Used: 7mm curette Tissue Removed: Slough and devitalized tissue Severity: Fat Layer Exposed Amount of bleeding with debridement: Mild Bleeding Controlled with: Pressure Patient tolerated procedure: Patient tolerated procedure well Assessment/Plan Assessment/Plan (1) Ulcer of right lower extremity with fat layer exposed: CODE(S): L97.912 - Non-pressure chronic ulcer of unspecified part of right lower leg with fat layer exposed (2) Venous ulcer of right leg: CODE(S): I83.019 - Varicose veins of right lower extremity with ulcer of unspecified site; L97.919 - Non-pressure chronic ulcer of unspecified part of right lower leg with unspecified severity (3) Nonhealing ulcer of right lower extremity: CODE(S): L97.919 - Non-pressure chronic ulcer of unspecified part of right lower leg with unspecified severity QUALIFIERS: Non-pressure ulcer stage: with fat layer exposed Qualified Code(s): L97.912 - Non-pressure chronic ulcer of unspecified part of right lower leg with fat layer exposed (4) Venous insufficiency: (5) Cellulitis of right lower extremity: CODE(S): L03.115 - Cellulitis of right lower limb (6) Lymphedema: CODE(S): I89.0 - Lymphedema, not elsewhere classified (7) Morbid obesity: CODE(S): E66.01 - Morbid (severe) obesity due to excess calories (8) Excoriation of right lower leg: CODE(S): S80.811A - Abrasion, right lower leg, initial encounter QUALIFIERS: Encounter type: initial encounter Qualified Code(s): S80.811A - Abrasion, right lower leg, initial encounter PLAN: The patient has previously completed 6 applications of Puraply to the posterior RLE ulcer. Puraply was then discontinued due to failure of the wound to improve in size and appearance, which I suspect was due to the patient's inability to tolerate thorough debridement and refusal to appropriately utilize compression/leg elevation. With an increase in the use of her lymphedema pumps and multiple approaches to wound debridement, the patient's wound sizes improved and bioburden was reduced. Advanced skin substitutes were again applied for and approved. Of the 10 approved applications, she received 1 Puraply application, 5/5 Apligraf applications, and 4 Nushield applications. Ultrasonic debridement was previously performed to both anterior ulcers and the posterior ulcer of the right lower extremity, though I do not feel this provided as thorough debridement as using a curette. Ultrasonic debridement may be attempted again in the future using a curette tip. Excisional debridement was performed today as annotated above. The patient's right lower extremity swelling and drainage have improved significantly with the use of Unna boots. Aquacel Ag applied to the ulcers of the right lower extremity, and Unna boot applied to the right lower extremity. Patient was instructed to keep Unna boot clean and dry. If anytime the Unna boot becomes too tight or uncomfortable, she is to elevate her leg. If she experiences numbness, tingling, or discoloration of the toes that does not subside with leg elevation, she is to notify the wound healing center and remove the Unna boot. Clotrimazole cream prescribed, to be applied twice daily to the right popliteal fossa rash, which is expected to be intertrigo. Compression: Lymphedema pumps should be utilized for 1 hour 3 times per day. If this is not well-tolerated, the patient should continue to use the pumps as long and as frequently as possible, working toward this goal. Off-loading: The patient has been instructed to avoid pressure and friction on the affected areas. Reposition every 2 hours at minimum. Avoid prolonged standing and/or dangling of legs. When seated, feet should be elevated at chest level. Frequent ambulation is encouraged. Diet: Patient encouraged to increase protein intake while taking caution to avoid high carbohydrate and/or sugar intake. Labs/cultures/imaging: The patient's wound cultures from 02/05/2021 were positive for 1+ Enterococcus faecalis, and rare MRSA. She was sent to the emergency department for IV antibiotic treatment. She received a dose of IV vancomycin 2000mg and was discharged on 10-day courses of doxycycline and Augmentin, which she has completed. Hospital labs are as follows: CBCD: Unremarkable CMP: Unremarkable Lactic acid: Normal INR: Normal Venous and arterial studies were previously ordered in September 2020, though the patient never had these done. These were again ordered in late December 2020, but have not yet been completed. I have advised the patient that this information would be extremely helpful. Given the patient's delayed healing, a wound biopsy was recommended on multiple occasions to evaluate for other potential causes for delayed healing; the patient refused. Follow-up: Consult with lymphedema specialist at [facility] on 01/14/2021 was cancelled by patient due to reported transportation issues. The importance of this consultation has been discussed at length with the patient. She reports she has rescheduled with the lymphedema specialist for May 2021. Return to clinic in 1 week for reevaluation. Return sooner or report to the emergency room should symptoms worsen, or new symptoms arise. Note: [employer] speech recognition associate quality engineer software was used to create portions of this document. Sound-alike and misspelled words, as well as other associate quality engineer errors may be contained in the documentation.
[2021-03-09 13:35] VITALS: BP 166/67; PULSE 72; RESP 24; TEMP 36.3; BMI 49.0
[2021-03-12 08:21] VITALS: BP 176/89; PULSE 66; RESP 18; TEMP 35.2; BMI 49.0
--- NOTE | 2021-03-12 10:32 | PN.PCM_ITS ---
History of Present Illness Date of Service: 03/12/21 Chief Complaint: Ulcers of right lower extremity History of Wound: [facility] for evaluation and treatment of bilateral lower leg ulcers. The patient is [facility] from treatment of prior lower extremity ulcers. She has a PMH significant for chronic lymphedema, venous insufficiency, atrial fibrillation (on Eliquis), morbid obesity, and hypothyroidism. She reported development of her posterior right lower leg ulcer in April 2019. She initially was using Manuka honey to this ulcer, but then started using Vaseline instead. She reported her anterior right lower extremity ulcer developed in August, and she had been applying Vaseline to this daily. Her anterior left lower extremity ulcer developed approximately 1 week prior to her initial January 2020 appt, and she had been applying Vaseline to this daily as well. She notes that approximately 4 to 6 weeks prior, the ulcer on her posterior right lower leg began increasing in soreness. She has lymphedema pumps at home, but had not been using these due to reported pain with use which is related to her ulcers. She does not use compression at home. She reports frequent dangling of her legs while seated at her computer for work. She does not frequently elevate her feet when seated. The patient denied any fever, chills, nausea, vomiting, or diarrhea on initial evaluation. She denied any increasing redness or swelling of the affected area at that time as well. She did note foul-smelling drainage from her right lower extremity. She had not been on any recent antibiotics prior to evaluation. She reported having lab work done approximately 6 weeks prior; these records were requested for review multiple times but never obtained. Lab work was ordered and completed in February 2020 and was significant for the following: CBCD: RBC 3.83 (L), hemoglobin 11.3 (L), hematocrit 34.8 (L), platelets 143 (L) ESR: 93 (H) CMP: Albumin 3.0 (L) CRP: 111 (H) Prealbumin 18.6 (L) She had lower extremity arterial studies completed 05/16/16 which showed relatively normal arterial perfusion to ankle level bilaterally. Triphasic waveforms were noted at ankle level bilaterally. Resting ankle-brachial indices were bilaterally normal. The right digital-brachial index is normal, consistent with normal arterial perfusion at distal, small-vessel level in the right lower extremity. The left digital-brachial index is mildly diminished, suggesting the presence of mild, distal, small-vessel arterial occlusive disease in the left lower extremity. Venous and arterial studies were ordered on 09/11/2020, and the patient was scheduled for an appointment in September for these tests. However the tests were never completed. The patient has continually expressed reluctance regarding wound work-up, and noncompliance with orders. Wound cultures collected on 01/03/2020 were positive for 3+ Aeromonas hydrophilia/caviae, 2+ Citrobacter braakii, 1+ Proteus mirabilis, rare Staphylococus aureus, anaerobic cocci, actinomyces odontolyticus, Bacteroides fragilis; beta-lactamase positive. She completed courses of Levaquin and Augmentin. Weeks later, she developed redness and warmth of a localized lymphedema mass of her right medial thigh; this resolved following a 14-day course of Levaquin and Augmentin. She has continued to have fluctuating redness and warmth of this right medial thigh lymphedema mass. She has completed several courses of antibiotics. Keflex and Levaquin have been of benefit. Doxycycline was not felt to be of significant benefit. A referral to a lymphedema specialist at the [facility] was made, and the importance of scheduling this appointment was discussed with the patient. She has not yet scheduled this appointment. Several conversations have been had with the patient regarding her need for compression and lymphedema management in order for her wounds to heal. She refuses compression. She is noncompliant with elevating her legs. She states she is unable to use her lymphedema pumps at this time due to the size of her legs. Since January 2020, several wound care treatments have been utilized, including Aquacel, Aquacel Ag, Devika. She has completed several applications of advanced skin substitutes (Apligraf, Puraply, and Nushield). Progress of Wound: Patient has had worsening of her wound size and appearance in recent weeks. She has had copious amounts of clear drainage from her right lower extremity, particularly from the anterior RLE. She has severe excoriation of the anterior RLE, as well as new areas of ulceration. She reports she has been changing her super sorb dressings approximately 4 times daily, and they have been saturated when changed. She is using Aquacel Ag to her right lower extremity anterior and posterior ulcers. She again states that she has not been using her lymphedema pumps often, but has been trying to use them more. She does not elevate her leg regularly. She does not use compression. She has not rescheduled her appointment with the lymphedema specialist at the [facility]. She expresses reluctance about lymphedema surgery, stating she knows people who have had surgery and has had numerous complications, as well as healthcare providers that recommend exhausting conservative treatment efforts prior to consideration of surgery. The patient's wound cultures from 02/05/2021 were positive for 1+ Enterococcus faecalis, and rare MRSA. She was sent to the emergency department for IV antibiotic treatment. She received a dose of IV vancomycin 2000mg and was discharged on 10-day courses of doxycycline and Augmentin, which she has completed. Hospital labs are as follows: CBCD: Unremarkable CMP: Unremarkable Lactic acid: Normal INR: Normal The patient was seen by Dr. Desai on 02/16/2021 for vascular consult [facility]. Aquacel Ag was continued, and the patient was started on Unna boots for compression and treatment of right lower extremity excoriation. Progress of Wound: The patient continues to be compliant with the use of Unna boots, and is tolerating these well. I am satisfied with her compliance at this time. She has had a significant reduction in her right lower extremity swelling. The excoriation and drainage of the right lower extremity has improved with the use of Unna boots, though her right lower extremity remains very erythematous. Her wounds are stable. No purulent or malodorous drainage from her wounds is noted. She denies fevers, poor appetite, or generalized malaise. She has a red, scaly rash at the right popliteal fossa, and it appears the Unna boot was causing friction in this area. This is improved with the use of clotrimazole topically. Objective Data Objective Data Vital Signs: Vital Signs Temp Pulse Resp BP 95.3 F L 66 18 176/89 H 03/12/21 08:21 12 08:21 03/12/21 08:21 03/12/21 08:21 Oxygen Delivery Method Room Air Body Mass Index (BMI) 49.0 Charges/Coding Procedures Integumentary 111xxx-113xx: 46439 Shante subq tissue 20 sq cm/< Add On Codes: 80363 Shante subq tissue add-on (x5) Physical Exam Const alert and no apparent distress General Appearance: cooperative, comfortable and well kempt Nutritional Appearance: morbidly obese HEENT Head and Scalp: normocephalic and atraumatic Neck supple Lymph Lymphatic: lymphedema severe (worse in RLE) Resp normal respiratory effort Cardio Peripheral Pulses: dorsalis pedis pulses present right 1+ Extremity normal capillary refill and no joint enlargement General Extremity: edema bilateral lower extremity Details: moderate; Negative for clubbing or cyanosis Skin Rashes: rashes noted distal RLE Narrative: bright red excoriation present, likely d/t copious amount of drainage and moisture trapping excoriation red dry, raised and warm scalloped moderate Wounds: wounds noted drainage serous, No malodorous, no odor and surrounding erythema Wound Narrative: No active drainage from her distal RLE. No purulent/malodorous drainage noted. Proximal anterior RLE ulcer cluster, with new open areas of ulceration. Large amount of slough and devitalized tissue present. Subcutaneous layer exposed. No tunneling, undermining, or probing to bone. Mild periulcer warmth. Significant periulcer erythema. Moderate tenderness to palpation of the anterior RLE. RLE posterior ulcer with moderate amount of slough and devitalized tissue present. Moderate periulcer erythema present. No periulcer warmth. No tunneling, undermining, or probing to bone. Neuro oriented x3, moves all extremities and no focal motor deficits Psych mental status grossly normal, cooperative and affect normal Debridement Note Debridement Note Wound debrided: RLE anterior ulcer cluster Laterality: Right Type of Debridement: Excisional debridement Anesthesia Used: 4% Lidocaine Solution and Cetacaine Depth: in the subcutaneous layer Percentage of wound debrided: 100 Instrument Used: 7mm curette Tissue Removed: Slough and devitalized tissue Severity: Fat Layer Exposed Amount of bleeding with debridement: Mild Bleeding Controlled with: Pressure Patient tolerated procedure: Patient did not tolerate procedure well Post-Debridement Measurements and Additional Note: Post-Debridement Measure ments/Treatment WC - Nurse 1 - General Ulcer Assessment Start: 03/05/21 08:35 Freq: Status: Active Protocol: SAL Activity Type Activity Date Activity User E-Sign Co-Sign Detail Recorded Client Recorded Date Recorded By Document 03/05/21 08:35 [place] [id number] 03/05/21 08:39 [place] Document 03/09/21 13:35 BMF [id number] 03/09/21 13:37 [facility] Document 03/12/21 08:21 [facility] [id number] 03/12/21 08:26 BM 03/05/21 03/09/21 03/12/21 08:35 13:35 08:21 - Today's Visit Information Type of service Follow-up Visit Nurse-only Follow-up Visit (Physician/PAYMENT PROCESSOR Visit (Physician/PAYMENT PROCESSOR ) ) Arrival Mode Ambulatory Ambulatory Ambulatory Transfer Assistance None None Patient Identification Verified (Name & Yes Yes Yes ) Patient Requires Transmission-Based No No No Precautions Safety Precautions NA Height and Weight Body Mass Index (BMI) 49.0 49.0 49.0 BMI Classification Obese Obese Obese Vital Signs Temperature (97.8 F-99.1 F) 95.6 F L 97.3 F L 95.3 F L Temperature Source Temporal Temporal Temporal Pulse Rate (60-100) 68 72 66 Pulse Location Monitor Monitor Monitor Respiratory Rate (12-18) 24 H 18 Respiratory rate source Observation Observation Oxygen Delivery Method Room Air Room Air Blood Pressure (90/60-120/80) 155/103 H 166/67 H 176/89 H Blood Pressure Mean (mm Hg) 120 100 118 Source Monitor Monitor Monitor Position Sitting Sitting Blood Pressure Location Left Arm Left Forearm History Since Last Visit- (Skip if this is Patient's initial visit) Have you changed medications since your No No No last visit? Any new allergies or adverse reactions No No No Had a fall/change in ADL's that may No No No increase risk of falls Signs or symptoms of abuse and/or No No No neglect since last visit Have you been in the hospital since your No No No last visit? Has dressing in place as prescribed Yes Yes Yes Has compression in place as prescribed Yes Yes Yes Has offloadiing in place as prescribed N/A N/A N/A Experienced any changes in pain level or No No No management Left Footwear Regular Shoe Regular Shoe Regular Shoe Right Footwear Regular Shoe Regular Shoe Regular Shoe Pain Scale: 0-10 Numeric Is Patient Pain Free? Yes Yes - Nurse 1 - General Ulcer Measurement Start: 03/05/21 08:35 Freq: Status: Active Protocol: Activity Type Activity Date Activity User E-Sign Co-Sign Detail Recorded Client Recorded Date Recorded By Document 03/05/21 08:35 [place] [id number] 03/05/21 08:39 [place] Document 03/12/21 08:21 [facility] [id number] 03/12/21 08:26 BM 03/05/21 03/12/21 08:35 08:21 Wound Center Nurse 1 #8 RLE Post -Combined with other wound No No -Current Size (cm) - Length 5 5 -Current Size (cm) - Width 3 3 -Current Size (cm) - Depth 0.1 0.3 -Total Square Cm 15 15 -Photo Taken No No -Epithelialization None Present None Present -Tunneling No No -Undermining/Tunneling No No -Circular Undermining No No -Change in Wound Grade/Stage No -Exudate Amt Large Large -Exudate Type Serosanguineous Serosanguineous -Wound Margin Distinct, Flat & Intact Outline Attached -Granulation Amt Large (67-100%) -Granulation Quality Babbie -Slough/Fibrin Yes Yes -Necrosis Amt Large (67-100%) Small (1-33%) -Necrotic Tissue Type Adherent Slough Adherent Slough -Structure Exposed N/A -Texture (Irene-wound Skin Appearance) Assessed, Assessed, Excoriation Fluctuance -Moisture (Irene-wound Skin Appearance) Assessed, Assessed, Weeping Maceration -Color (Irene-wound Skin Appearance) Assessed Assessed, Erythema -Temperature (Irene-wound Skin Hot No Abnormality Appearance) (Pt Warm) -Tenderness on Palpation (Irene-wound No Yes Skin Appearance) -Ulcer Cleansing Soap and Water Soap and Water -Foul Odor after Cleansing No No -Anesthetic Used 5% Lidocaine 4% Lidocaine Gel Solution #7 RLE Ant Cluster -Combined with other wound No -Current Size (cm) - Length 8 7 -Current Size (cm) - Width 10 10.5 -Current Size (cm) - Depth 0.1 0.1 -Total Square Cm 80 73.5 -Photo Taken No No -Epithelialization None Present -Tunneling No No -Undermining/Tunneling No No -Circular Undermining No No -Change in Wound Grade/Stage No -Exudate Amt Large Large -Exudate Type Serosanguineous Serosanguineous -Wound Margin Distinct, Distinct, Outline Outline Attached Attached -Granulation Amt None Present (0 %) -Granulation Quality N/A -Slough/Fibrin Yes Yes -Necrosis Amt Large (67-100%) Large (67-100%) -Necrotic Tissue Type Adherent Slough Adherent Slough -Structure Exposed N/A -Texture (Irene-wound Skin Appearance) Assessed Assessed, Excoriation, Scarring -Moisture (Irene-wound Skin Appearance) Assessed, Assessed, Maceration Maceration -Color (Irene-wound Skin Appearance) No Abnormality, Assessed, Assessed Erythema -Temperature (Irene-wound Skin No Abnormality No Abnormality Appearance) (Pt Warm) (Pt Warm) -Tenderness on Palpation (Irene-wound No Yes Skin Appearance) -Ulcer Cleansing Soap and Water Soap and Water -Foul Odor after Cleansing No No -Anesthetic Used 5% Lidocaine 4% Lidocaine Gel Solution Lower Limb Edema Present Yes Right Calf (cm) 70.2 64.5 Right Ankle (cm) 31 33 WC - Nurse 2 - General Ulcer CM Notes Start: 03/05/21 08:35 Freq: Status: Active Protocol: Activity Type Activity Date Activity User E-Sign Co-Sign Detail Recorded Client Recorded Date Recorded By Document 03/05/21 13:18 PL [id number] 03/05/21 13:21 PL 03/05/21 13:18 Wound Center Nurse 2 #8 RLE Post -Time 08:46 -Correct Patient Yes -Correct Side, Site, Position Yes -Correct Procedure Yes -Procedure Performed Yes -Type of Procedure Debridement -Clinical Debridement Subcutaneous -Tissue Removed Subcutaneous -Post Debridement (cm) - Length 5.2 -Post Debridement (cm) - Width 3.4 -Post Debridement (cm) - Depth 0.3 -Total Square (Post) (cm) 17.68 -Area of Debridement (cm) - Length 5.2 -Area of Debridement (cm) - Width 3.4 -Total Square (Area) (cm) 17.68 -Tunneling No -Undermining/Tunneling No -Circular Undermining No -Wound/Ulcer Outcome Not Healed -Ulcer Cleansing Rinsed/ Irrigated with Saline -Foul Odor after Cleansing No -Bioengineered Tissue No -Bleeding Controlled with Pressure -Treatment Response Procedure Tolerated Well -Debridement - Subq, 1st 20sq cm No #7 RLE Ant Cluster -Time 08:46 -Correct Patient Yes -Correct Side, Site, Position Yes -Correct Procedure Yes -Procedure Performed Yes -Type of Procedure Debridement -Clinical Debridement Subcutaneous -Tissue Removed Subcutaneous -Post Debridement (cm) - Length 8.3 -Post Debridement (cm) - Width 11.0 -Post Debridement (cm) - Depth 0.3 -Total Square (Post) (cm) 91.30 -Area of Debridement (cm) - Length 8.3 -Area of Debridement (cm) - Width 11.0 -Total Square (Area) (cm) 91.30 -Wound/Ulcer Outcome Not Healed -Ulcer Cleansing Rinsed/ Irrigated with Saline -Foul Odor after Cleansing No -Bioengineered Tissue No -Bleeding Controlled with Pressure -Treatment Response Procedure Tolerated Well -Debridement - Subq, 1st 20sq cm Yes -Debridement, SubQ, ea addt'l 20sq cm 5 or part thereof WC - Nurse 3 - General Ulcer D/C NN Start: 03/05/21 08:35 Freq: Status: Active Protocol: Activity Type Activity Date Activity User E-Sign Co-Sign Detail Recorded Client Recorded Date Recorded By Document 03/05/21 09:10 [place] [id number] 03/05/21 09:12 [place] Document 03/09/21 13:35 [facility] [id number] 03/09/21 13:37 [facility] Document 03/12/21 09:21 [place] [id number] 03/12/21 09:23 [place] 03/05/21 03/09/21 03/12/21 09:10 13:35 09:21 Wound Care Nurse 3 #8 RLE Post -Ulcer Cleansing Rinsed/ Soap and Water Rinsed/ Irrigated with Irrigated with Saline Saline -Foul Odor after Cleansing No No No -Negative Pressure Wound Therapy N/A N/A -Primary Dressing Applied Aquacel AG 4x4 Aquacel AG 4x4, Aquacel AG 4x4, Optilok 6.5x10 Optilok 6.5x10 -Other Covering DRSG PER DL PLY SPLICER -Aquacel AG 4x4 1 1 0 -Optilok 6.5x10 1 1 #7 RLE Ant Cluster -Ulcer Cleansing Rinsed/ Soap and Water Rinsed/ Irrigated with Irrigated with Saline Saline -Foul Odor after Cleansing No No No -Negative Pressure Wound Therapy N/A N/A -Primary Dressing Applied Aquacel AG 4x4 Aquacel AG 4x4, Aquacel AG 4x4, Optilok 6.5x10 Optilok 8x12 -Other Covering UNNA BOOT PER DL PLY SPLICER -Aquacel AG 4x4 0 0 0 -Optilok 6.5x10 1 -Optilok 8x12 1 Right -Lotion applied to leg before No No compression wrap -Multi-Layered Wrap Application Unna Boot - Unna Boot - Unna Boot - Right ($) Right ($) Right ($) Treatment Response Procedure Tolerated Well Vital Signs Temperature (97.8 F-99.1 F) 97.3 F L Temperature Source Temporal Pulse Rate (60-100) 72 Pulse Location Monitor Respiratory Rate (12-18) 24 H Respiratory rate source Observation Oxygen Delivery Method Room Air Blood Pressure (90/60-120/80) 166/67 H Blood Pressure Mean (mm Hg) 100 Source Monitor Position Sitting Blood Pressure Location Left Arm Pain Scale: 0-10 Numeric Is Patient Pain Free? Yes WC - Visit Discharge Discharge Condition Stable Stable Stable Ambulatory Status Ambulatory,Cane Ambulatory Ambulatory,Cane Transportation Private Auto Private Auto Private Auto Medication Reconcilliation completed & No No provided to patient/care provider Clinical Summary of Care Provided Yes Yes Additional Wound Wound debrided: RLE posterior ulcer Laterality: Right Anesthesia Used: 4% Lidocaine Solution and Cetacaine Depth: in the subcutaneous layer Percentage of wound debrided: 100 Instrument Used: 7mm curette Tissue Removed: Slough in devitalized tissue Severity: Fat Layer Exposed Amount of bleeding with debridement: Mild Bleeding Controlled with: Pressure Patient tolerated procedure: Patient tolerated procedure well Assessment/Plan Assessment/Plan (1) Ulcer of right lower extremity with fat layer exposed: CODE(S): L97.912 - Non-pressure chronic ulcer of unspecified part of right lower leg with fat layer exposed (2) Venous ulcer of right leg: CODE(S): I83.019 - Varicose veins of right lower extremity with ulcer of unspecified site; L97.919 - Non-pressure chronic ulcer of unspecified part of right lower leg with unspecified severity (3) Nonhealing ulcer of right lower extremity: CODE(S): L97.919 - Non-pressure chronic ulcer of unspecified part of right lower leg with unspecified severity QUALIFIERS: Non-pressure ulcer stage: with fat layer exposed Qualified Code(s): L97.912 - Non-pressure chronic ulcer of unspecified part of right lower leg with fat layer exposed (4) Venous insufficiency: (5) Cellulitis of right lower extremity: CODE(S): L03.115 - Cellulitis of right lower limb (6) Lymphedema: CODE(S): I89.0 - Lymphedema, not elsewhere classified (7) Morbid obesity: CODE(S): E66.01 - Morbid (severe) obesity due to excess calories (8) Excoriation of right lower leg: CODE(S): S80.811A - Abrasion, right lower leg, initial encounter QUALIFIERS: Encounter type: initial encounter Qualified Code(s): S80.811A - Abrasion, right lower leg, initial encounter (9) Intertrigo: CODE(S): L30.4 - Erythema intertrigo PLAN: The patient has previously completed 6 applications of Puraply to the posterior RLE ulcer. Puraply was then discontinued due to failure of the wound to improve in size and appearance, which I suspect was due to the patient's inability to tolerate thorough debridement and refusal to appropriately utilize compression/leg elevation. With an increase in the use of her lymphedema pumps and multiple approaches to wound debridement, the patient's wound sizes improved and bioburden was reduced. Advanced skin substitutes were again applied for and approved. Of the 10 approved applications, she received 1 Puraply application, 5/5 Apligraf applications, and 4 Nushield applications. Ultrasonic debridement was previously performed to both anterior ulcers and the posterior ulcer of the right lower extremity, though I do not feel this provided as thorough debridement as using a curette. Ultrasonic debridement may be attempted again in the future using a curette tip. Excisional debridement was performed today as annotated above. The patient's right lower extremity swelling and drainage have improved with the use of Unna boots. Aquacel Ag applied to the ulcers of the right lower extremity, and Unna boot applied to the right lower extremity. Patient was instructed to keep Unna boot clean and dry. If anytime the Unna boot becomes too tight or uncomfortable, she is to elevate her leg. If she experiences numbness, tingling, or discoloration of the toes that does not subside with leg elevation, she is to notify the wound healing center and remove the Unna boot. Clotrimazole 1%/betamethasone 0.05% cream prescribed. Patient is to obtain this prescription and bring it with her to the wound healing center on Monday. At that time, clotrimazole/betamethasone cream will be applied in a thin layer to the periulcer areas of redness/rash of the RLE. The cream is not to be used in the patient's wounds. Wounds will be covered with Aquacel Ag. Periwound areas will be covered with super sorb dressings. 3M wrap will be applied to the right lower extremity. Wraps are to be changed on Mondays, Wednesdays, and Fridays at the [facility]. Clotrimazole cream will be continued? to be applied twice daily to the right popliteal fossa rash, which is expected to be intertrigo. Compression: Lymphedema pumps should be utilized for 1 hour 3 times per day. If this is not well-tolerated, the patient should continue to use the pumps as long and as frequently as possible, working toward this goal. Off-loading: The patient has been instructed to avoid pressure and friction on the affected areas. Reposition every 2 hours at minimum. Avoid prolonged standing and/or dangling of legs. When seated, feet should be elevated at chest level. Frequent ambulation is encouraged. Diet: Patient encouraged to increase protein intake while taking caution to avoid high carbohydrate and/or sugar intake. Labs/cultures/imaging: The patient's wound cultures from 02/05/2021 were positive for 1+ Enterococcus faecalis, and rare MRSA. She was sent to the emergency department for IV antibiotic treatment. She received a dose of IV vancomycin 2000mg and was discharged on 10-day courses of doxycycline and Augmentin, which she has completed. Repeat cultures collected today from the anterior RLE ulcer (03/12/2021). Hospital labs are as follows: CBCD: Unremarkable CMP: Unremarkable Lactic acid: Normal INR: Normal Venous and arterial studies were previously ordered in September 2020, though the patient never had these done. These were again ordered in late December 2020, but have not yet been completed. I have advised the patient that this information would be extremely helpful. Given the patient's delayed healing, a wound biopsy was recommended on multiple occasions to evaluate for other potential causes for delayed healing; the patient refused. Follow-up: Consult with lymphedema specialist at [facility] on 01/14/2021 was cancelled by patient due to reported transportation issues. The importance of this consultation has been discussed at length with the patient. She reports she has rescheduled with the lymphedema specialist for May 2021. Return to clinic in 1 week for reevaluation. Return sooner or report to the emergency room should symptoms worsen, or new symptoms arise. Note: [employer] speech recognition narcotics and vice detective software was used to create portions of this document. Sound-alike and misspelled words, as well as other narcotics and vice detective errors may be contained in the documentation.
[2021-03-15 11:24] VITALS: BP 152/78; PULSE 63; RESP 22; TEMP 36; BMI 49.0
[2021-03-17 11:56] VITALS: BP 148/78; PULSE 68; RESP 16; TEMP 36.1; BMI 49.0
--- NOTE | 2021-03-19 08:29 | PCM.WC.PN ---
History of Present Illness Date of Service: 03/19/21 Chief Complaint: Ulcers of right lower extremity History of Wound: [facility] for evaluation and treatment of bilateral lower leg ulcers. The patient is [facility] treatment of prior lower extremity ulcers. She has a PMH significant for chronic lymphedema, venous insufficiency, atrial fibrillation (on Eliquis), morbid obesity, and hypothyroidism. She reported development of her posterior right lower leg ulcer in April 2019. She initially was using Manuka honey to this ulcer, but then started using Vaseline instead. She reported her anterior right lower extremity ulcer developed in August, and she had been applying Vaseline to this daily. Her anterior left lower extremity ulcer developed approximately 1 week prior to her initial January 2020 appt, and she had been applying Vaseline to this daily as well. She notes that approximately 4 to 6 weeks prior, the ulcer on her posterior right lower leg began increasing in soreness. She has lymphedema pumps at home, but had not been using these due to reported pain with use which is related to her ulcers. She does not use compression at home. She reports frequent dangling of her legs while seated at her computer for work. She does not frequently elevate her feet when seated. The patient denied any fever, chills, nausea, vomiting, or diarrhea on initial evaluation. She denied any increasing redness or swelling of the affected area at that time as well. She did note foul-smelling drainage from her right lower extremity. She had not been on any recent antibiotics prior to evaluation. She reported having lab work done approximately 6 weeks prior; these records were requested for review multiple times but never obtained. Lab work was ordered and completed in February 2020 and was significant for the following: CBCD: RBC 3.83 (L), hemoglobin 11.3 (L), hematocrit 34.8 (L), platelets 143 (L) ESR: 93 (H) CMP: Albumin 3.0 (L) CRP: 111 (H) Prealbumin 18.6 (L) She had lower extremity arterial studies completed 05/16/16 which showed relatively normal arterial perfusion to ankle level bilaterally. Triphasic waveforms were noted at ankle level bilaterally. Resting ankle-brachial indices were bilaterally normal. The right digital-brachial index is normal, consistent with normal arterial perfusion at distal, small-vessel level in the right lower extremity. The left digital-brachial index is mildly diminished, suggesting the presence of mild, distal, small-vessel arterial occlusive disease in the left lower extremity. Venous and arterial studies were ordered on 09/11/2020, and the patient was scheduled for an appointment in September for these tests. However the tests were never completed. The patient has continually expressed reluctance regarding wound work-up, and noncompliance with orders. Wound cultures collected on 01/03/2020 were positive for 3+ Aeromonas hydrophilia/caviae, 2+ Citrobacter braakii, 1+ Proteus mirabilis, rare Staphylococus aureus, anaerobic cocci, actinomyces odontolyticus, Bacteroides fragilis; beta-lactamase positive. She completed courses of Levaquin and Augmentin. Weeks later, she developed redness and warmth of a localized lymphedema mass of her right medial thigh; this resolved following a 14-day course of Levaquin and Augmentin. She has continued to have fluctuating redness and warmth of this right medial thigh lymphedema mass. She has completed several courses of antibiotics. Keflex and Levaquin have been of benefit. Doxycycline was not felt to be of significant benefit. A referral to a lymphedema specialist at the [facility] was made, and the importance of scheduling this appointment was discussed with the patient. She has not yet scheduled this appointment. Several conversations have been had with the patient regarding her need for compression and lymphedema management in order for her wounds to heal. She refuses compression. She is noncompliant with elevating her legs. She states she is unable to use her lymphedema pumps at this time due to the size of her legs. Since January 2020, several wound care treatments have been utilized, including Aquacel, Aquacel Ag, Devika. She has completed several applications of advanced skin substitutes (Apligraf, Puraply, and Nushield). Progress of Wound: Patient has had worsening of her wound size and appearance in recent weeks. She has had copious amounts of clear drainage from her right lower extremity, particularly from the anterior RLE. She has severe excoriation of the anterior RLE, as well as new areas of ulceration. She reports she has been changing her super sorb dressings approximately 4 times daily, and they have been saturated when changed. She is using Aquacel Ag to her right lower extremity anterior and posterior ulcers. She again states that she has not been using her lymphedema pumps often, but has been trying to use them more. She does not elevate her leg regularly. She does not use compression. She has not rescheduled her appointment with the lymphedema specialist at the [facility]. She expresses reluctance about lymphedema surgery, stating she knows people who have had surgery and has had numerous complications, as well as healthcare providers that recommend exhausting conservative treatment efforts prior to consideration of surgery. The patient's wound cultures from 02/05/2021 were positive for 1+ Enterococcus faecalis, and rare MRSA. She was sent to the emergency department for IV antibiotic treatment. She received a dose of IV vancomycin 2000mg and was discharged on 10-day courses of doxycycline and Augmentin, which she has completed. Hospital labs are as follows: CBCD: Unremarkable CMP: Unremarkable Lactic acid: Normal INR: Normal The patient was seen by Dr. Desai on 02/16/2021 for [facility]. Aquacel Ag was continued, and the patient was started on Unna boots for compression and treatment of right lower extremity excoriation. Progress of Wound: The patient continues to be compliant with the use of compression (now using 3M wraps), and is tolerating these well. I am satisfied with her compliance at this time. She has had a significant reduction in her right lower extremity swelling. The excoriation and drainage of the right lower extremity has improved with the use of compression. Her periulcer excoriation has also significantly benefited from the use of clotrimazole betamethasone ointment. Her wounds are improved in size and appearance today. No purulent or malodorous drainage from her wounds is noted. Wound cultures from 03/12/2021 were negative for aerobic and anaerobic bacterial growth. She denies fevers, poor appetite, or generalized malaise. She has a red, scaly rash at the right popliteal fossa, and it appears the right leg wrap was causing friction in this area. This has improved with the use of clotrimazole topically. Clotrimazole + betamethasone ointment has been Objective Data Objective Data Vital Signs: Vital Signs Temp Pulse Resp BP 97 F L 68 16 148/78 H 03/17/21 11:56 03/17/21 11:56 03/17/21 11:56 03/17/21 11:56 Oxygen Delivery Method Room Air Body Mass Index (BMI) 49.0 Lab / Micro Data Micro: Microbiology 03/12/21 08:50 Wound - Leg, Right Gram Stain - Final 03/12/21 08:50 Wound - Leg, Right Wound Culture - Final No growth aerobically. 03/12/21 08:50 Wound - Leg, Right Anaerobic Culture - Final No growth in 5 days. Charges/Coding Procedures Integumentary 111xxx-113xx: [id number] Shante subq tissue 20 sq cm/< Add On Codes: 05001 Shante subq tissue add-on (x4) Physical Exam Const alert and no apparent distress General Appearance: cooperative, comfortable and well kempt Nutritional Appearance: morbidly obese HEENT Head and Scalp: normocephalic and atraumatic Neck supple Lymph Lymphatic: lymphedema severe (worse in RLE) Resp normal respiratory effort Cardio Peripheral Pulses: dorsalis pedis pulses present right 1+ Extremity normal capillary refill and no joint enlargement General Extremity: edema bilateral lower extremity Details: moderate; Negative for clubbing or cyanosis Skin Rashes: rashes noted distal RLE Narrative: Right lower extremity erythema and excoriation is improved, though still present to a lesser degree excoriation red dry moderate Wounds: wounds noted drainage serous, No malodorous, no odor and surrounding erythema Wound Narrative: No active drainage from her distal RLE. No purulent/malodorous drainage noted. Anterior RLE ulcer cluster with moderate to large amount of slough and devitalized tissue present. Subcutaneous layer exposed. No tunneling, undermining, or probing to bone. No periulcer warmth. Moderate periulcer erythema. Mild to moderate tenderness to palpation of the anterior RLE. RLE posterior ulcer with small to moderate amount of slough and devitalized tissue present. Moderate periulcer erythema present. No periulcer warmth. No tunneling, undermining, or probing to bone. Neuro oriented x3, moves all extremities and no focal motor deficits Psych mental status grossly normal, cooperative and affect normal Debridement Note Debridement Note Wound debrided: anterior RLE cluster Laterality: Right Type of Debridement: Excisional debridement Anesthesia Used: 4% Lidocaine Solution Depth: in the subcutaneous layer Percentage of wound debrided: 100 Instrument Used: 7mm curette Tissue Removed: Slough and devitalized tissue Severity: Fat Layer Exposed Amount of bleeding with debridement: Mild Bleeding Controlled with: Pressure Patient tolerated procedure: Patient tolerated procedure well Post-Debridement Measurements and Additional Note: Post-Debridement Measurements/Treatment WC - Nurse 1 - General Ulcer Assessment Start: 03/05/21 08:35 Freq: Status: Active Protocol: SAL Activity Type Activity Date Activity User E-Sign Co-Sign Detail Recorded Client Recorded Date Recorded By Document 03/05/21 08:35 AK [id number] 03/05/21 08:39 AK Document 03/09/21 13:35 BMF [id number] 03/09/21 13:37 BM Document 03/12/21 08:21 BMF [id number] 03/12/21 08:26 BMF Document 03/15/21 11:24 DL [id number] 03/15/21 11:30 DL Document 03/17/21 11:56 ML [id number] 03/17/21 11:57 ML 03/05/21 03/09/21 03/12/21 08:35 13:35 08:21 - Today's Visit Information Type of service Follow-up Visit Nurse-only Follow-up Visit (Physician/COMPOUNDING AND FINISHING SUPERVISOR Visit (Physician/COMPOUNDING AND FINISHING SUPERVISOR ) ) Arrival Mode Ambulatory Ambulatory Ambulatory Transfer Assistance None None Patient Identification Verified (Name & Yes Yes Yes ) Patient Requires Transmission-Based No No No Precautions Safety Precautions NA Height and Weight Body Mass Index (BMI) 49.0 49.0 49.0 BMI Classification Obese Obese Obese Vital Signs Temperature (97.8 F-99.1 F) 95.6 F L 97.3 F L 95.3 F L Temperature Source Temporal Temporal Temporal Pulse Rate (60-100) 68 72 66 Pulse Location Monitor Monitor Monitor Respiratory Rate (12-18) 24 H 18 Respiratory rate source Observation Observation Oxygen Delivery Method Room Air Room Air Blood Pressure (90/60-120/80) 155/103 H 166/67 H 176/89 H Blood Pressure Mean (mm Hg) 120 100 118 Source Monitor Monitor Monitor Position Sitting Sitting Blood Pressure Location Left Arm Left Forearm History Since Last Visit- (Skip if this is Patient's initial visit) Have you changed medications since your No No No last visit? Any new allergies or adverse reactions No No No Had a fall/change in ADL's that may No No No increase risk of falls Signs or symptoms of abuse and/or No No No neglect since last visit Have you been in the hospital since your No No No last visit? Has dressing in place as prescribed Yes Yes Yes Has compression in place as prescribed Yes Yes Yes Has offloadiing in place as prescribed N/A N/A N/A Experienced any changes in pain level or No No No management Left Footwear Regular Shoe Regular Shoe Regular Shoe Right Footwear Regular Shoe Regular Shoe Regular Shoe Pain Scale: 0-10 Numeric Is Patient Pain Free? Yes Yes 03/15/21 03/17/21 11:24 11:56 - Today's Visit Information Type of service Nurse-only Nurse-only Visit Visit Arrival Mode Ambulatory,Cane Cane Transfer Assistance None Patient Identification Verified (Name & Yes ) Patient Requires Transmission-Based No Precautions Safety Precautions Height and Weight Body Mass Index (BMI) 49.0 49.0 BMI Classification Obese Obese Vital Signs Temperature (97.8 F-99.1 F) 96.8 F L 97 F L Temperature Source Temporal Temporal Pulse Rate (60-100) 63 68 Pulse Location Monitor Monitor Respiratory Rate (12-18) 22 H 16 Respiratory rate source Observation Observation Oxygen Delivery Method Blood Pressure (90/60-120/80) 152/78 H 148/78 H Blood Pressure Mean (mm Hg) 102 101 Source Monitor Monitor Position Sitting Blood Pressure Location Left Arm History Since Last Visit- (Skip if this is Patient's initial visit) Have you changed medications since your No No last visit? Any new allergies or adverse reactions No No Had a fall/change in ADL's that may No No increase risk of falls Signs or symptoms of abuse and/or No No neglect since last visit Have you been in the hospital since your No No last visit? Has dressing in place as prescribed Yes Yes Has compression in place as prescribed Yes Yes Has offloadiing in place as prescribed N/A N/A Experienced any changes in pain level or No No management Left Footwear Regular Shoe Right Footwear Regular Shoe Pain Scale: 0-10 Numeric Is Patient Pain Free? Yes Yes - Nurse 1 - General Ulcer Measurement Start: 03/05/21 08:35 Freq: Status: Active Protocol: Activity Type Activity Date Activity User E-Sign Co-Sign Detail Recorded Client Recorded Date Recorded By Document 03/05/21 08:35 AK [id number] 03/05/21 08:39 AK Document 03/12/21 08:21 BMF [id number] 03/12/21 08:26 BMF Document 03/15/21 11:24 DL [id number] 03/15/21 11:30 DL Document 03/17/21 11:57 ML [id number] 03/17/21 11:58 ML 03/05/21 03/12/21 03/15/21 08:35 08:21 11:24 Wound Center Nurse 1 #8 RLE Post -Combined with other wound No No -Current Size (cm) - Length 5 5 -Current Size (cm) - Width 3 3 -Current Size (cm) - Depth 0.1 0.3 -Total Square Cm 15 15 -Photo Taken No No -Epithelialization None Present None Present -Tunneling No No -Undermining/Tunneling No No -Circular Undermining No No -Change in Wound Grade/Stage No -Exudate Amt Large Large Medium -Exudate Type Serosanguineous Serosanguineous Serosanguineous -Wound Margin Distinct, Flat & Intact Indistinct, Non Outline -Visible Attached -Granulation Amt Large (67-100%) Large (67-100%) -Granulation Quality [place] Red -Slough/Fibrin Yes Yes -Necrosis Amt Large (67-100%) Small (1-33%) Medium (34-66%) -Necrotic Tissue Type Adherent Slough Adherent Slough Adherent Slough -Structure Exposed N/A N/A -Texture (Irene-wound Skin Appearance) Assessed, Assessed, Excoriation, Excoriation Fluctuance Rash -Moisture (Irene-wound Skin Appearance) Assessed, Assessed, No Abnormality Weeping Maceration -Color (Irene-wound Skin Appearance) Assessed Assessed, No Abnormality Erythema -Temperature (Irene-wound Skin Hot No Abnormality No Abnormality Appearance) (Pt Warm) (Pt Warm) -Tenderness on Palpation (Irene-wound No Yes No Skin Appearance) -Ulcer Cleansing Soap and Water Soap and Water Soap and Water -Foul Odor after Cleansing No No No -Anesthetic Used 5% Lidocaine 4% Lidocaine Gel Solution #7 RLE Ant Cluster -Combined with other wound No -Current Size (cm) - Length 8 7 -Current Size (cm) - Width 10 10.5 -Current Size (cm) - Depth 0.1 0.1 -Total Square Cm 80 73.5 -Photo Taken No No No -Epithelialization None Present -Tunneling No No -Undermining/Tunneling No No -Circular Undermining No No -Change in Wound Grade/Stage No -Exudate Amt Large Large Medium -Exudate Type Serosanguineous Serosanguineous Serosanguineous -Wound Margin Distinct, Distinct, Indistinct, Non Outline Outline -Visible Attached Attached -Granulation Amt None Present (0 Medium (34-66%) %) -Granulation Quality N/A Red -Slough/Fibrin Yes Yes -Necrosis Amt Large (67-100%) Large (67-100%) Medium (34-66%) -Necrotic Tissue Type Adherent Slough Adherent Slough Adherent Slough -Structure Exposed N/A N/A -Texture (Irene-wound Skin Appearance) Assessed Assessed, Excoriation, Excoriation, Rash Scarring -Moisture (Irene-wound Skin Appearance) Assessed, Assessed, No Abnormality Maceration Maceration -Color (Irene-wound Skin Appearance) No Abnormality, Assessed, No Abnormality Assessed Erythema -Temperature (Irene-wound Skin No Abnormality No Abnormality No Abnormality Appearance) (Pt Warm) (Pt Warm) (Pt Warm) -Tenderness on Palpation (Irene-wound No Yes No Skin Appearance) -Ulcer Cleansing Soap and Water Soap and Water Soap and Water -Foul Odor after Cleansing No No No -Anesthetic Used 5% Lidocaine 4% Lidocaine Gel Solution Lower Limb Edema Present Yes Right Calf (cm) 70.2 64.5 Right Ankle (cm) 31 33 03/17/21 11:57 Wound Center Nurse 1 #8 RLE Post -Combined with other wound -Current Size (cm) - Length -Current Size (cm) - Width -Current Size (cm) - Depth -Total Square Cm -Photo Taken -Epithelialization -Tunneling -Undermining/Tunneling -Circular Undermining -Change in Wound Grade/Stage -Exudate Amt -Exudate Type -Wound Margin -Granulation Amt -Granulation Quality -Slough/Fibrin -Necrosis Amt -Necrotic Tissue Type -Structure Exposed -Texture (Irene-wound Skin Appearance) -Moisture (Irene-wound Skin Appearance) -Color (Irene-wound Skin Appearance) -Temperature (Irene-wound Skin Appearance) -Tenderness on Palpation (Irene-wound Skin Appearance) -Ulcer Cleansing -Foul Odor after Cleansing -Anesthetic Used #7 RLE Ant Cluster -Combined with other wound -Current Size (cm) - Length -Current Size (cm) - Width -Current Size (cm) - Depth -Total Square Cm -Photo Taken -Epithelialization -Tunneling -Undermining/Tunneling -Circular Undermining -Change in Wound Grade/Stage -Exudate Amt -Exudate Type -Wound Margin -Granulation Amt -Granulation Quality -Slough/Fibrin -Necrosis Amt -Necrotic Tissue Type -Structure Exposed -Texture (Irene-wound Skin Appearance) -Moisture (Irene-wound Skin Appearance) -Color (Irene-wound Skin Appearance) -Temperature (Irene-wound Skin Appearance) -Tenderness on Palpation (Irene-wound Skin Appearance) -Ulcer Cleansing -Foul Odor after Cleansing -Anesthetic Used Lower Limb Edema Present Right Calf (cm) 65.2 Right Ankle (cm) 30.8 WC - Nurse 2 - General Ulcer CM Notes Start: 03/05/21 08:35 Freq: Status: Active Protocol: Activity Type Activity Date Activity User E-Sign Co-Sign Detail Recorded Client Recorded Date Recorded By Document 03/05/21 13:18 PL [id number] 03/05/21 13:21 PL Document 03/12/21 12:41 PL [id number] 03/12/21 12:43 PL 03/05/21 03/12/21 13:18 12:41 Wound Center Nurse 2 #8 RLE Post -Time 08:46 08:32 -Correct Patient Yes Yes -Correct Side, Site, Position Yes Yes -Correct Procedure Yes Yes -Procedure Performed Yes Yes -Type of Procedure Debridement Debridement -Clinical Debridement Subcutaneous Subcutaneous -Tissue Removed Subcutaneous Subcutaneous -Post Debridement (cm) - Length 5.2 5.0 -Post Debridement (cm) - Width 3.4 3.2 -Post Debridement (cm) - Depth 0.3 0.2 -Total Square (Post) (cm) 17.68 16.00 -Area of Debridement (cm) - Length 5.2 5.0 -Area of Debridement (cm) - Width 3.4 3.2 -Total Square (Area) (cm) 17.68 16.00 -Tunneling No No -Undermining/Tunneling No No -Circular Undermining No No -Wound/Ulcer Outcome Not Healed Not Healed -Ulcer Cleansing Rinsed/ Rinsed/ Irrigated with Irrigated with Saline Saline -Foul Odor after Cleansing No No -Bioengineered Tissue No No -Bleeding Controlled with Pressure Pressure -Treatment Response Procedure Procedure Tolerated Well Tolerated Well -Debridement - Subq, 1st 20sq cm No No #7 RLE Ant Cluster -Time 08:46 08:32 -Correct Patient Yes Yes -Correct Side, Site, Position Yes Yes -Correct Procedure Yes Yes -Procedure Performed Yes Yes -Type of Procedure Debridement Debridement -Clinical Debridement Subcutaneous Subcutaneous -Tissue Removed Subcutaneous Subcutaneous -Post Debridement (cm) - Length 8.3 9.0 -Post Debridement (cm) - Width 11.0 9.0 -Post Debridement (cm) - Depth 0.3 0.2 -Total Square (Post) (cm) 91.30 81.00 -Area of Debridement (cm) - Length 8.3 9.0 -Area of Debridement (cm) - Width 11.0 9.0 -Total Square (Area) (cm) 91.30 81.00 -Tunneling No -Undermining/Tunneling No -Circular Undermining No -Wound/Ulcer Outcome Not Healed Not Healed -Ulcer Cleansing Rinsed/ Rinsed/ Irrigated with Irrigated with Saline Saline -Foul Odor after Cleansing No No -Bioengineered Tissue No No -Bleeding Controlled with Pressure Pressure -Treatment Response Procedure Procedure Tolerated Well Tolerated Well -Debridement - Subq, 1st 20sq cm Yes Yes -Debridement, SubQ, ea addt'l 20sq cm 5 5 or part thereof WC - Nurse 3 - General Ulcer D/C NN Start: 03/05/21 08:35 Freq: Status: Active Protocol: Activity Type Activity Date Activity User E-Sign Co-Sign Detail Recorded Client Recorded Date Recorded By Document 03/05/21 09:10 AK [id number] 03/05/21 09:12 AK Document 03/09/21 13:35 [facility] [id number] 03/09/21 13:37 BMF Document 03/12/21 09:21 AK [id number] 03/12/21 09:23 AK Document 03/15/21 11:24 DL [id number] 03/15/21 11:30 DL Document 03/17/21 12:54 PL [id number] 03/18/21 06:54 PL 03/05/21 03/09/21 03/12/21 09:10 13:35 09:21 Wound Care Nurse 3 #8 RLE Post -Ulcer Cleansing Rinsed/ Soap and Water Rinsed/ Irrigated with Irrigated with Saline Saline -Foul Odor after Cleansing No No No -Negative Pressure Wound Therapy N/A N/A -Primary Dressing Applied Aquacel AG 4x4 Aquacel AG 4x4, Aquacel AG 4x4, Optilok 6.5x10 Optilok 6.5x10 -Other Dressing -Primary Dressing Covered/Secured with -Other Covering DRSG PER DL SHELLFISH CHECKER -Aquacel AG 4x4 1 1 0 -Optilok 6.5x10 1 1 #7 RLE Ant Cluster -Ulcer Cleansing Rinsed/ Soap and Water Rinsed/ Irrigated with Irrigated with Saline Saline -Foul Odor after Cleansing No No No -Negative Pressure Wound Therapy N/A N/A -Primary Dressing Applied Aquacel AG 4x4 Aquacel AG 4x4, Aquacel AG 4x4, Optilok 6.5x10 Optilok 8x12 -Other Dressing -Primary Dressing Covered/Secured with -Other Covering UNNA BOOT PER DL SHELLFISH CHECKER -Aquacel AG 4x4 0 0 0 -Optilok 6.5x10 1 -Optilok 8x12 1 Right -Lotion applied to leg before No No compression wrap -Multi-Layered Wrap Application Unna Boot - Unna Boot - Unna Boot - Right ($) Right ($) Right ($) Treatment Response Procedure Tolerated Well Vital Signs Temperature (97.8 F-99.1 F) 97.3 F L Temperature Source Temporal Pulse Rate (60-100) 72 Pulse Location Monitor Respiratory Rate (12-18) 24 H Respiratory rate source Observation Oxygen Delivery Method Room Air Blood Pressure (90/60-120/80) 166/67 H Blood Pressure Mean (mm Hg) 100 Source Monitor Position Sitting Blood Pressure Location Left Arm Pain Scale: 0-10 Numeric Is Patient Pain Free? Yes WC - Visit Discharge Discharge Condition Stable Stable Stable Ambulatory Status Ambulatory,Cane Ambulatory Ambulatory,Cane Transportation Private Auto Private Auto Private Auto Medication Reconcilliation completed & No No provided to patient/care provider Clinical Summary of Care Provided Yes Yes 12/13/21 12/15/21 11:24 12:54 Wound Care Nurse 3 #8 RLE Post -Ulcer Cleansing Soap and Water -Foul Odor after Cleansing No -Negative Pressure Wound Therapy -Primary Dressing Applied Aquacel AG 4x4 -Other Dressing superabsorber -Primary Dressing Covered/Secured with Dry Gauze & Roll Gauze, Secured with Tape -Other Covering Topical Steroid Cream -Aquacel AG 4x4 1 -Optilok 6.5x10 #7 RLE Ant Cluster -Ulcer Cleansing Soap and Water -Foul Odor after Cleansing No -Negative Pressure Wound Therapy -Primary Dressing Applied -Other Dressing Aqaucel AG/ Superabsorber -Primary Dressing Covered/Secured with Dry Gauze & Roll Gauze, Secured with Tape -Other Covering Topical Steroid Cream -Aquacel AG 4x4 -Optilok 6.5x10 -Optilok 8x12 Right -Lotion applied to leg before compression wrap -Multi-Layered Wrap Application Multi-Layer Unna Boot - Comp - Right ($ Right ($) ) Treatment Response Procedure Tolerated Well Vital Signs Temperature (97.8 F-99.1 F) 96.8 F L Temperature Source Temporal Pulse Rate (60-100) 63 Pulse Location Monitor Respiratory Rate (12-18) 22 H Respiratory rate source Observation Oxygen Delivery Method Blood Pressure (90/60-120/80) 152/78 H Blood Pressure Mean (mm Hg) 102 Source Monitor Position Blood Pressure Location Pain Scale: 0-10 Numeric Is Patient Pain Free? Yes WC - Visit Discharge Discharge Condition Stable Ambulatory Status Ambulatory,Cane Transportation Private Auto Medication Reconcilliation completed & provided to patient/care provider Clinical Summary of Care Provided Additional Wound Wound debrided: posterior RLE ulcer Laterality: Right Type of Debridement: Excisional debridement Anesthesia Used: 4% Lidocaine Solution Depth: in the subcutaneous layer Percentage of wound debrided: 100 Instrument Used: 7mm curette Tissue Removed: Slough and devitalized tissue Severity: Fat Layer Exposed Amount of bleeding with debridement: Mild Bleeding Controlled with: Pressure Patient tolerated procedure: Patient tolerated procedure well Assessment/Plan Assessment/Plan (1) Ulcer of right lower extremity with fat layer exposed: CODE(S): L97.912 - Non-pressure chronic ulcer of unspecified part of right lower leg with fat layer exposed (2) Venous ulcer of right leg: CODE(S): I83.019 - Varicose veins of right lower extremity with ulcer of unspecified site; L97.919 - Non-pressure chronic ulcer of unspecified part of right lower leg with unspecified severity (3) Nonhealing ulcer of right lower extremity: CODE(S): L97.919 - Non-pressure chronic ulcer of unspecified part of right lower leg with unspecified severity QUALIFIERS: Non-pressure ulcer stage: with fat layer exposed Qualified Code(s): L97.912 - Non-pressure chronic ulcer of unspecified part of right lower leg with fat layer exposed (4) Venous insufficiency: (5) Lymphedema: CODE(S): I89.0 - Lymphedema, not elsewhere classified (6) Morbid obesity: CODE(S): E66.01 - Morbid (severe) obesity due to excess calories (7) Excoriation of right lower leg: CODE(S): S80.811A - Abrasion, right lower leg, initial encounter QUALIFIERS: Encounter type: initial encounter Qualified Code(s): S80.811A - Abrasion, right lower leg, initial encounter (8) Intertrigo: CODE(S): L30.4 - Erythema intertrigo PLAN: The patient has previously completed 6 applications of Puraply to the posterior RLE ulcer. Puraply was then discontinued due to failure of the wound to improve in size and appearance, which I suspect was due to the patient's inability to tolerate thorough debridement and refusal to appropriately utilize compression/leg elevation. With an increase in the use of her lymphedema pumps and multiple approaches to wound debridement, the patient's wound sizes improved and bioburden was reduced. Advanced skin substitutes were again applied for and approved. Of the 10 approved applications, she received 1 Puraply application, 5/5 Apligraf applications, and 4 Nushield applications. Ultrasonic debridement was previously performed to both anterior ulcers and the posterior ulcer of the right lower extremity, though I do not feel this provided as thorough debridement as using a curette. Ultrasonic debridement may be attempted again in the future using a curette tip. Excisional debridement was performed today as annotated above. The patient's right lower extremity swelling and drainage have improved with the use of compression (Unna boots and 3M wraps). [employer] applied to the ulcers of the right lower extremity. Clotrimazole 1%/betamethasone 0.05% cream applied to the periulcer areas of erythema, periwound areas covered with super sorb dressings, and 3M applied to the right lower extremity. Patient was instructed to keep her right lower extremity wraps clean and dry. If anytime the wrap becomes too tight or uncomfortable, she is to elevate her leg. If she experiences numbness, tingling, or discoloration of the toes that does not subside with leg elevation, she is to notify the wound healing center and remove the wrap. Clotrimazole cream will be continued? to be applied twice daily to the right popliteal fossa rash, which is expected to be intertrigo. Compression: Lymphedema pumps should be utilized for 1 hour 3 times per day. If this is not well-tolerated, the patient should continue to use the pumps as long and as frequently as possible, working toward this goal. Off-loading: The patient has been instructed to avoid pressure and friction on the affected areas. Reposition every 2 hours at minimum. Avoid prolonged standing and/or dangling of legs. When seated, feet should be elevated at chest level. Frequent ambulation is encouraged. Diet: Patient encouraged to increase protein intake while taking caution to avoid high carbohydrate and/or sugar intake. Labs/cultures/imaging: The patient's wound cultures from 02/05/2021 were positive for 1+ Enterococcus faecalis, and rare MRSA. She was sent to the emergency department for IV antibiotic treatment. She received a dose of IV vancomycin 2000mg and was discharged on 10-day courses of doxycycline and Augmentin, which she has completed. Repeat cultures from 03/12/2021 were negative. Hospital labs are as follows: CBCD: Unremarkable CMP: Unremarkable Lactic acid: Normal INR: Normal Venous and arterial studies were previously ordered in September 2020, though the patient never had these done. These were again ordered in late December 2020, but have not yet been completed. I have advised the patient that this information would be extremely helpful. Given the patient's delayed healing, a wound biopsy was recommended on multiple occasions to evaluate for other potential causes for delayed healing; the patient refused. Follow-up: Consult with lymphedema specialist at [facility] on 01/14/2021 was cancelled by patient due to reported transportation issues. The importance of this consultation has been discussed at length with the patient. She reports she has rescheduled with the lymphedema specialist for May 2021. Return to clinic on Monday and for nurse visits. On 03/29/2021, I will have her follow-up with Isadora Desai NP for debridement. I will then have her return on the following , Monday, and Monday for nurse visits. She will be reevaluated by me on 04/09/2021. Patient was instructed to return sooner or report to the emergency room should symptoms worsen, or new symptoms arise. Note: [employer] speech recognition arch pad cementer software was used to create portions of this document. Sound-alike and misspelled words, as well as other arch pad cementer errors may be contained in the documentation.
[2021-03-19 08:50] VITALS: BP 143/91; PULSE 72; TEMP 36.1; BMI 49.0
[2021-03-22 14:07] VITALS: BP 156/91; PULSE 91; RESP 18; TEMP 35.8; BMI 49.0
[2021-03-25 11:14] VITALS: BP 132/47; PULSE 74; RESP 18; TEMP 35.7; BMI 49.0
[2021-03-29 08:50] VITALS: BP 169/75; PULSE 68; TEMP 35.8; BMI 49.0
--- NOTE | 2021-03-29 11:42 | PCM.WC.PN ---
History of Present Illness Date of Service: 03/29/21 Chief Complaint: Ulcers of right lower extremity History of Wound: [facility] for evaluation and treatment of bilateral lower leg ulcers. The patient is [facility] treatment of prior lower extremity ulcers. She has a PMH significant for chronic lymphedema, venous insufficiency, atrial fibrillation (on Eliquis), morbid obesity, and hypothyroidism. She reported development of her posterior right lower leg ulcer in April 2019. She initially was using Manuka honey to this ulcer, but then started using Vaseline instead. She reported her anterior right lower extremity ulcer developed in August, and she had been applying Vaseline to this daily. Her anterior left lower extremity ulcer developed approximately 1 week prior to her initial January 2020 appt, and she had been applying Vaseline to this daily as well. She notes that approximately 4 to 6 weeks prior, the ulcer on her posterior right lower leg began increasing in soreness. She has lymphedema pumps at home, but had not been using these due to reported pain with use which is related to her ulcers. She does not use compression at home. She reports frequent dangling of her legs while seated at her computer for work. She does not frequently elevate her feet when seated. The patient denied any fever, chills, nausea, vomiting, or diarrhea on initial evaluation. She denied any increasing redness or swelling of the affected area at that time as well. She did note foul-smelling drainage from her right lower extremity. She had not been on any recent antibiotics prior to evaluation. She reported having lab work done approximately 6 weeks prior; these records were requested for review multiple times but never obtained. Lab work was ordered and completed in February 2020 and was significant for the following: CBCD: RBC 3.83 (L), hemoglobin 11.3 (L), hematocrit 34.8 (L), platelets 143 (L) ESR: 93 (H) CMP: Albumin 3.0 (L) CRP: 111 (H) Prealbumin 18.6 (L) She had lower extremity arterial studies completed 05/16/16 which showed relatively normal arterial perfusion to ankle level bilaterally. Triphasic waveforms were noted at ankle level bilaterally. Resting ankle-brachial indices were bilaterally normal. The right digital-brachial index is normal, consistent with normal arterial perfusion at distal, small-vessel level in the right lower extremity. The left digital-brachial index is mildly diminished, suggesting the presence of mild, distal, small-vessel arterial occlusive disease in the left lower extremity. Venous and arterial studies were ordered on 09/11/2020, and the patient was scheduled for an appointment in September for these tests. However the tests were never completed. The patient has continually expressed reluctance regarding wound work-up, and noncompliance with orders. Wound cultures collected on 01/03/2020 were positive for 3+ Aeromonas hydrophilia/caviae, 2+ Citrobacter braakii, 1+ Proteus mirabilis, rare Staphylococus aureus, anaerobic cocci, actinomyces odontolyticus, Bacteroides fragilis; beta-lactamase positive. She completed courses of Levaquin and Augmentin. Weeks later, she developed redness and warmth of a localized lymphedema mass of her right medial thigh; this resolved following a 14-day course of Levaquin and Augmentin. She has continued to have fluctuating redness and warmth of this right medial thigh lymphedema mass. She has completed several courses of antibiotics. Keflex and Levaquin have been of benefit. Doxycycline was not felt to be of significant benefit. A referral to a lymphedema specialist at the [facility] was made, and the importance of scheduling this appointment was discussed with the patient. She has not yet scheduled this appointment. Several conversations have been had with the patient regarding her need for compression and lymphedema management in order for her wounds to heal. She refuses compression. She is noncompliant with elevating her legs. She states she is unable to use her lymphedema pumps at this time due to the size of her legs. Since January 2020, several wound care treatments have been utilized, including Aquacel, Aquacel Ag, Devika. She has completed several applications of advanced skin substitutes (Apligraf, Puraply, and Nushield). Progress of Wound: Patient has had worsening of her wound size and appearance in recent weeks. She has had copious amounts of clear drainage from her right lower extremity, particularly from the anterior RLE. She has severe excoriation of the anterior RLE, as well as new areas of ulceration. She reports she has been changing her super sorb dressings approximately 4 times daily, and they have been saturated when changed. She is using Aquacel Ag to her right lower extremity anterior and posterior ulcers. She again states that she has not been using her lymphedema pumps often, but has been trying to use them more. She does not elevate her leg regularly. She does not use compression. She has not rescheduled her appointment with the lymphedema specialist at the [facility]. She expresses reluctance about lymphedema surgery, stating she knows people who have had surgery and has had numerous complications, as well as healthcare providers that recommend exhausting conservative treatment efforts prior to consideration of surgery. The patient's wound cultures from 02/05/2021 were positive for 1+ Enterococcus faecalis, and rare MRSA. She was sent to the emergency department for IV antibiotic treatment. She received a dose of IV vancomycin 2000mg and was discharged on 10-day courses of doxycycline and Augmentin, which she has completed. Hospital labs are as follows: CBCD: Unremarkable CMP: Unremarkable Lactic acid: Normal INR: Normal The patient was seen by Dr. Desai on 02/16/2021 for [facility]. Aquacel Ag was continued, and the patient was started on Unna boots for compression and treatment of right lower extremity excoriation. Progress of Wound: Courtesy visit for Lula Huggins. Patient continues to be compliant with the use of compression (now using 3M wraps), and is tolerating these well. Her left anterior leg ulcer has a significant amount of dry, slough present. Now that she has edema control, she is not draining like she previously stated. The excoriated area surrounding the anterior ulcer has improved with the Clotrimazole/betamethasone ointment. The right posterior ulcer is beefy pink. Neither ulcer has an odor. She denies fevers, poor appetite, or generalized malaise. Objective Data Objective Data Vital Signs: Vital Signs Temp Pulse Resp BP 96.4 F L 68 18 169/75 H 03/29/21 08:50 03/29/21 08:50 03/25/21 11:14 03/29/21 08:50 Oxygen Delivery Method Room Air Body Mass Index (BMI) 49.0 Lab / Micro Data Micro: Microbiology 03/12/21 08:50 Wound - Leg, Right Gram Stain - Final 03/12/21 08:50 Wound - Leg, Right Wound Culture - Final No growth aerobically. 03/12/21 08:50 Wound - Leg, Right Anaerobic Culture - Final No growth in 5 days. Charges/Coding Procedures Integumentary 111xxx-113xx: [id number] Shante subq tissue 20 sq cm/< Add On Codes: 34877 Shante subq tissue add-on (x4) Physical Exam Const alert and oriented x3 HEENT normocephalic Head and Scalp: atraumatic Lymph Lymphatic Narrative: Bilateral lower extremity lymphedema Resp normal respiratory effort Cardio regular rate GI Palpation: soft Extremity Extremity Narrative: Bilateral lower extremity edema/lymphedema Skin Wound Narrative: Right anterior ulcer with large amount of dry, flaking, scabbing before debridement. Right posterior ulcer is beefy pink and bleeds easily. Neuro CN's II-XII intact bilaterally Psych Appearance: grossly normal Debridement Note Debridement Note Wound debrided: anterior ulcer cluster Laterality: Right Type of Debridement: Excisional debridement Anesthesia Used: 4% Lidocaine Solution and 5% Lidocaine Gel Depth: Down to and including healthy tissue and in the subcutaneous layer Percentage of wound debrided: 100 Instrument Used: 7mm curette Tissue Removed: Subcutaneous tissue and slough Severity: Fat Layer Exposed Amount of bleeding with debridement: Mild Bleeding Controlled with: Pressure and Compression and gauze Patient tolerated procedure: Patient tolerated procedure well Debridement Free Text: Large amount of dry, flaking, nonviable slough present that was easily removed. Post-Debridement Measurements and Additional Note: Post-Debridement Measurements/Treatment WC - Nurse 1 - General Ulcer Assessment Start: 03/05/21 08:35 Freq: Status: Active Protocol: CHRISTIANNE.DINESH Activity Type Activity Date Activity User E-Sign Co-Sign Detail Recorded Client Recorded Date Recorded By Document 03/05/21 08:35 [place] [id number] 03/05/21 08:39 [place] Document 03/09/21 13:35 [facility] [id number] 03/09/21 13:37 [facility] Document 03/12/21 08:21 BMF [id number] 03/12/21 08:26 BMF Document 03/15/21 11:24 DL [id number] 03/15/21 11:30 DL Document 03/17/21 11:56 ML [id number] 03/17/21 11:57 ML Document 03/19/21 08:50 AK [id number] 03/19/21 08:55 AK Document 03/22/21 14:07 BMF [id number] 03/22/21 14:21 BMF Document 03/25/21 11:14 RB [id number] 03/25/21 11:18 RB Document 03/29/21 08:50 [facility] [id number] 03/29/21 08:55 BMF 03/05/21 03/09/21 03/12/21 08:35 13:35 08:21 WC - Today's Visit Information Type of service Follow-up Visit Nurse-only Follow-up Visit (Physician/FIRESTOP/CONTAINMENT WORKER Visit (Physician/FIRESTOP/CONTAINMENT WORKER ) ) Arrival Mode Ambulatory Ambulatory Ambulatory Transfer Assistance None None Patient Identification Verified (Name & Yes Yes Yes ) Patient Requires Transmission-Based No No No Precautions Safety Precautions NA Height and Weight Body Mass Index (BMI) 49.0 49.0 49.0 BMI Classification Obese Obese Obese Vital Signs Temperature (97.8 F-99.1 F) 95.6 F L 97.3 F L 95.3 F L Temperature Source Temporal Temporal Temporal Pulse Rate (60-100) 68 72 66 Pulse Location Monitor Monitor Monitor Respiratory Rate (12-18) 24 H 18 Respiratory rate source Observation Observation Oxygen Delivery Method Room Air Room Air Blood Pressure (90/60-120/80) 155/103 H 166/67 H 176/89 H Blood Pressure Mean (mm Hg) 120 100 118 Source Monitor Monitor Monitor Position Sitting Sitting Blood Pressure Location Left Arm Left Forearm History Since Last Visit- (Skip if this is Patient's initial visit) Have you changed medications since your No No No last visit? Any new allergies or adverse reactions No No No Had a fall/change in ADL's that may No No No increase risk of falls Signs or symptoms of abuse and/or No No No neglect since last visit Have you been in the hospital since your No No No last visit? Has dressing in place as prescribed Yes Yes Yes Has compression in place as prescribed Yes Yes Yes Has offloadiing in place as prescribed N/A N/A N/A Experienced any changes in pain level or No No No management Left Footwear Regular Shoe Regular Shoe Regular Shoe Right Footwear Regular Shoe Regular Shoe Regular Shoe Pain Scale: 0-10 Numeric Is Patient Pain Free? Yes Yes 03/15/21 03/17/21 03/19/21 11:24 11:56 08:50 WC - Today's Visit Information Type of service Nurse-only Nurse-only Follow-up Visit Visit Visit (Physician/FIRESTOP/CONTAINMENT WORKER ) Arrival Mode Ambulatory,Cane Cane Ambulatory,Cane Transfer Assistance None Patient Identification Verified (Name & Yes Yes ) Patient Requires Transmission-Based No No Precautions Safety Precautions NA Height and Weight Body Mass Index (BMI) 49.0 49.0 49.0 BMI Classification Obese Obese Obese Vital Signs Temperature (97.8 F-99.1 F) 96.8 F L 97 F L 96.9 F L Temperature Source Temporal Temporal Temporal Pulse Rate (60-100) 63 68 72 Pulse Location Monitor Monitor Monitor Respiratory Rate (12-18) 22 H 16 Respiratory rate source Observation Observation Oxygen Delivery Method Blood Pressure (90/60-120/80) 152/78 H 148/78 H 143/91 H Blood Pressure Mean (mm Hg) 102 101 108 Source Monitor Monitor Monitor Position Sitting Blood Pressure Location Left Arm History Since Last Visit- (Skip if this is Patient's initial visit) Have you changed medications since your No No No last visit? Any new allergies or adverse reactions No No No Had a fall/change in ADL's that may No No No increase risk of falls Signs or symptoms of abuse and/or No No No neglect since last visit Have you been in the hospital since your No No No last visit? Has dressing in place as prescribed Yes Yes Yes Has compression in place as prescribed Yes Yes Yes Has offloadiing in place as prescribed N/A N/A N/A Experienced any changes in pain level or No No No management Left Footwear Regular Shoe Regular Shoe Right Footwear Regular Shoe Regular Shoe Pain Scale: 0-10 Numeric Is Patient Pain Free? Yes Yes 03/22/21 03/25/21 03/29/21 14:07 11:14 08:50 - Today's Visit Information Type of service Nurse-only Nurse-only Initial Visit Visit Visit Arrival Mode Ambulatory,Cane Ambulatory,Cane Ambulatory Transfer Assistance None None Patient Identification Verified (Name & Yes Yes Yes ) Patient Requires Transmission-Based No Precautions Safety Precautions Height and Weight Body Mass Index (BMI) 49.0 49.0 49.0 BMI Classification Obese Obese Obese Vital Signs Temperature (97.8 F-99.1 F) 96.4 F L 96.2 F L 96.4 F L Temperature Source Temporal Temporal Temporal Pulse Rate (60-100) 91 74 68 Pulse Location Monitor Monitor Monitor Respiratory Rate (12-18) 18 18 Respiratory rate source Observation Observation Oxygen Delivery Method Room Air Blood Pressure (90/60-120/80) 156/91 H 132/47 H 169/75 H Blood Pressure Mean (mm Hg) 112 75 106 Source Monitor Monitor Monitor Position Sitting Semi-Fowlers Semi-Fowlers Blood Pressure Location Left Forearm Left Arm Left Arm History Since Last Visit- (Skip if this is Patient's initial visit) Have you changed medications since your No No No last visit? Any new allergies or adverse reactions No No No Had a fall/change in ADL's that may No No No increase risk of falls Signs or symptoms of abuse and/or No No No neglect since last visit Have you been in the hospital since your No No No last visit? Has dressing in place as prescribed Yes Yes Yes Has compression in place as prescribed Yes Yes Yes Has offloadiing in place as prescribed N/A No N/A Experienced any changes in pain level or No No No management Left Footwear Regular Shoe Right Footwear Regular Shoe Pain Scale: 0-10 Numeric Is Patient Pain Free? Yes Yes Yes WC - Nurse 1 - General Ulcer Measurement Start: 03/05/21 08:35 Freq: Status: Active Protocol: Activity Type Activity Date Activity User E-Sign Co-Sign Detail Recorded Client Recorded Date Recorded By Document 03/05/21 08:35 AK [id number] 03/05/21 08:39 AK Document 03/12/21 08:21 BMF [id number] 03/12/21 08:26 BMF Document 03/15/21 11:24 DL [id number] 03/15/21 11:30 DL Document 03/17/21 11:57 ML [id number] 03/17/21 11:58 ML Document 03/19/21 08:50 AK [id number] 03/19/21 08:55 AK Document 03/25/21 11:14 RB [id number] 03/25/21 11:18 RB Document 03/29/21 08:50 BMF [id number] 03/29/21 08:55 BMF 03/05/21 03/12/2103/15/21 08:35 08:21 11:24 Wound Center Nurse 1 #8 RLE Post -Combined with other wound No No -Current Size (cm) - Length 5 5 -Current Size (cm) - Width 3 3 -Current Size (cm) - Depth 0.1 0.3 -Total Square Cm 15 15 -Photo Taken No No -Epithelialization None Present None Present -Tunneling No No -Undermining/Tunneling No No -Circular Undermining No No -Change in Wound Grade/Stage No -Exudate Amt Large Large Medium -Exudate Type Serosanguineous Serosanguineous Serosanguineous -Wound Margin Distinct, Flat & Intact Indistinct, Non Outline -Visible Attached -Granulation Amt Large (67-100%) Large (67-100%) -Granulation Quality [place] Red -Slough/Fibrin Yes Yes -Necrosis Amt Large (67-100%) Small (1-33%) Medium (34-66%) -Necrotic Tissue Type Adherent Slough Adherent Slough Adherent Slough -Structure Exposed N/A N/A -Texture (Irene-wound Skin Appearance) Assessed, Assessed, Excoriation, Excoriation Fluctuance Rash -Moisture (Irene-wound Skin Appearance) Assessed, Assessed, No Abnormality Weeping Maceration -Color (Irene-wound Skin Appearance) Assessed Assessed, No Abnormality Erythema -Temperature (Irene-wound Skin Hot No Abnormality No Abnormality Appearance) (Pt Warm) (Pt Warm) -Tenderness on Palpation (Irene-wound No Yes No Skin Appearance) -Ulcer Cleansing Soap and Water Soap and Water Soap and Water -Foul Odor after Cleansing No No No -Anesthetic Used 5% Lidocaine 4% Lidocaine Gel Solution #7 RLE Ant Cluster -Combined with other wound No -Current Size (cm) - Length 8 7 -Current Size (cm) - Width 10 10.5 -Current Size (cm) - Depth 0.1 0.1 -Total Square Cm 80 73.5 -Photo Taken No No No -Epithelialization None Present -Tunneling No No -Undermining/Tunneling No No -Circular Undermining No No -Change in Wound Grade/Stage No -Exudate Amt Large Large Medium -Exudate Type Serosanguineous Serosanguineous Serosanguineous -Wound Margin Distinct, Distinct, Indistinct, Non Outline Outline -Visible Attached Attached -Granulation Amt None Present (0 Medium (34-66%) %) -Granulation Quality N/A Red -Slough/Fibrin Yes Yes -Necrosis Amt Large (67-100%) Large (67-100%) Medium (34-66%) -Necrotic Tissue Type Adherent Slough Adherent Slough Adherent Slough -Structure Exposed N/A N/A -Texture (Irene-wound Skin Appearance) Assessed Assessed, Excoriation, Excoriation, Rash Scarring -Moisture (Irene-wound Skin Appearance) Assessed, Assessed, No Abnormality Maceration Maceration -Color (Irene-wound Skin Appearance) No Abnormality, Assessed, No Abnormality Assessed Erythema -Temperature (Irene-wound Skin No Abnormality No Abnormality No Abnormality Appearance) (Pt Warm) (Pt Warm) (Pt Warm) -Tenderness on Palpation (Irene-wound No Yes No Skin Appearance) -Ulcer Cleansing Soap and Water Soap and Water Soap and Water -Foul Odor after Cleansing No No No -Anesthetic Used 5% Lidocaine 4% Lidocaine Gel Solution Lower Limb Edema Present Yes Right Calf (cm) 70.2 64.5 Right Ankle (cm) 31 33 03/17/21 03/19/21 03/25/21 11:57 08:50 11:14 Wound Center Nurse 1 #8 RLE Post -Combined with other wound No -Current Size (cm) - Length 4.5 -Current Size (cm) - Width 3 -Current Size (cm) - Depth 0.2 -Total Square Cm 13.5 -Photo Taken No -Epithelialization -Tunneling No -Undermining/Tunneling No -Circular Undermining No -Change in Wound Grade/Stage No -Exudate Amt Medium Large -Exudate Type Serosanguineous Serosanguineous -Wound Margin Distinct, Outline Attached -Granulation Amt None Present (0 Medium (34-66%) %) -Granulation Quality N/A [place] -Slough/Fibrin No Yes -Necrosis Amt None Present (0 Medium (34-66%) %) -Necrotic Tissue Type Adherent Slough -Structure Exposed N/A N/A -Texture (Irene-wound Skin Appearance) No Abnormality, Assessed, Assessed Excoriation -Moisture (Irene-wound Skin Appearance) Assessed, Assessed Weeping -Color (Irene-wound Skin Appearance) No Abnormality, Assessed Assessed -Temperature (Irene-wound Skin No Abnormality No Abnormality Appearance) (Pt Warm) (Pt Warm) -Tenderness on Palpation (Irene-wound No No Skin Appearance) -Ulcer Cleansing Soap and Water Wound Cleanser -Foul Odor after Cleansing No No -Anesthetic Used 4% Lidocaine Solution #7 RLE Ant Cluster -Combined with other wound No -Current Size (cm) - Length 6 -Current Size (cm) - Width 9 -Current Size (cm) - Depth 0.1 -Total Square Cm 54 -Photo Taken No -Epithelialization None Present -Tunneling No -Undermining/Tunneling -Circular Undermining No -Change in Wound Grade/Stage No -Exudate Amt Small Medium -Exudate Type Serosanguineous Serosanguineous -Wound Margin Distinct, Flat & Intact Outline Attached -Granulation Amt Medium (34-66%) Medium (34-66%) -Granulation Quality Red [place] -Slough/Fibrin Yes -Necrosis Amt Small (1-33%) -Necrotic Tissue Type Adherent Slough -Structure Exposed N/A N/A -Texture (Irene-wound Skin Appearance) Assessed, Assessed, Localized Edema Excoriation -Moisture (Irene-wound Skin Appearance) Assessed, Assessed Weeping -Color (Irene-wound Skin Appearance) Assessed, Assessed Erythema -Temperature (Irene-wound Skin No Abnormality No Abnormality Appearance) (Pt Warm) (Pt Warm) -Tenderness on Palpation (Irene-wound No No Skin Appearance) -Ulcer Cleansing Soap and Water Wound Cleanser -Foul Odor after Cleansing No No -Anesthetic Used 4% Lidocaine Solution Lower Limb Edema Present Yes Right Calf (cm) 65.2 66.5 Right Ankle (cm) 30.8 30.2 03/29/21 08:50 Wound Center Nurse 1 #8 RLE Post -Combined with other wound -Current Size (cm) - Length 4.6 -Current Size (cm) - Width 2.9 -Current Size (cm) - Depth 0.2 -Total Square Cm 13.34 -Photo Taken -Epithelialization -Tunneling -Undermining/Tunneling -Circular Undermining -Change in Wound Grade/Stage -Exudate Amt Medium -Exudate Type Serosanguineous -Wound Margin Distinct, Outline Attached -Granulation Amt Medium (34-66%) -Granulation Quality Red -Slough/Fibrin -Necrosis Amt Medium (34-66%) -Necrotic Tissue Type Adherent Slough -Structure Exposed -Texture (Irene-wound Skin Appearance) Assessed, Scarring -Moisture (Irene-wound Skin Appearance) Assessed,Dry/ Scaly -Color (Irene-wound Skin Appearance) No Abnormality, Assessed -Temperature (Irene-wound Skin No Abnormality Appearance) (Pt Warm) -Tenderness on Palpation (Irene-wound No Skin Appearance) -Ulcer Cleansing Soap and Water -Foul Odor after Cleansing No -Anesthetic Used 4% Lidocaine Solution #7 RLE Ant Cluster -Combined with other wound -Current Size (cm) - Length 6.5 -Current Size (cm) - Width 5.5 -Current Size (cm) - Depth 0.2 -Total Square Cm 35.75 -Photo Taken -Epithelialization -Tunneling -Undermining/Tunneling -Circular Undermining -Change in Wound Grade/Stage -Exudate Amt Medium -Exudate Type Serosanguineous -Wound Margin Distinct, Outline Attached -Granulation Amt Large (67-100%) -Granulation Quality Red -Slough/Fibrin -Necrosis Amt Large (67-100%) -Necrotic Tissue Type Adherent Slough -Structure Exposed -Texture (Irene-wound Skin Appearance) Assessed, Scarring -Moisture (Irene-wound Skin Appearance) Assessed,Dry/ Scaly -Color (Irene-wound Skin Appearance) No Abnormality, Assessed -Temperature (Irene-wound Skin No Abnormality Appearance) (Pt Warm) -Tenderness on Palpation (Irene-wound No Skin Appearance) -Ulcer Cleansing Soap and Water -Foul Odor after Cleansing No -Anesthetic Used 4% Lidocaine Solution Lower Limb Edema Present Right Calf (cm) Right Ankle (cm) WC - Nurse 2 - General Ulcer CM Notes Start: 03/05/21 08:35 Freq: Status: Active Protocol: Activity Type Activity Date Activity User E-Sign Co-Sign Detail Recorded Client Recorded Date Recorded By Document 03/05/21 13:18 PL [id number] 03/05/21 13:21 PL Document 03/12/21 12:41 PL [id number] 03/12/21 12:43 PL Document 03/19/21 09:38 PL [id number] 03/19/21 09:42 PL Document 03/29/21 09:05 [id number] 03/29/21 09:21 03/05/21 03/12/21 03/19/21 13:18 12:41 09:38 Wound Center Nurse 2 #8 RLE Post -Time 08:46 08:32 08:34 -Correct Patient Yes Yes Yes -Correct Side, Site, Position Yes Yes Yes -Correct Procedure Yes Yes Yes -Procedure Performed Yes Yes Yes -Type of Procedure Debridement Debridement Debridement -Clinical Debridement Subcutaneous Subcutaneous Subcutaneous -Tissue Removed Subcutaneous Subcutaneous Subcutaneous -Post Debridement (cm) - Length 5.2 5.0 5.0 -Post Debridement (cm) - Width 3.4 3.2 2.7 -Post Debridement (cm) - Depth 0.3 0.2 0.2 -Total Square (Post) (cm) 17.68 16.00 13.50 -Area of Debridement (cm) - Length 5.2 5.0 5.0 -Area of Debridement (cm) - Width 3.4 3.2 2.7 -Total Square (Area) (cm) 17.68 16.00 13.50 -Tunneling No No No -Undermining/Tunneling No No No -Circular Undermining No No No -Wound/Ulcer Outcome Not Healed Not Healed Not Healed -Ulcer Cleansing Rinsed/ Rinsed/ Rinsed/ Irrigated with Irrigated with Irrigated with Saline Saline Saline -Foul Odor after Cleansing No No No -Bioengineered Tissue No No No -Bleeding Controlled with Pressure Pressure Pressure -Offloading -Treatment Response Procedure Procedure Procedure Tolerated Well Tolerated Well Tolerated Well -Debridement - Subq, 1st 20sq cm No No Yes -Debridement, SubQ, ea addt'l 20sq cm 4 or part thereof #7 RLE Ant Cluster -Time 08: 08:32 08:34 -Correct Patient Yes Yes Yes -Correct Side, Site, Position Yes Yes Yes -Correct Procedure Yes Yes Yes -Procedure Performed Yes Yes Yes -Type of Procedure Debridement Debridement Debridement -Clinical Debridement Subcutaneous Subcutaneous Subcutaneous -Tissue Removed Subcutaneous Subcutaneous Subcutaneous -Post Debridement (cm) - Length 8.3 9.0 7.5 -Post Debridement (cm) - Width 11.0 9.0 9.0 -Post Debridement (cm) - Depth 0.3 0.2 0.2 -Total Square (Post) (cm) 91.30 81.00 67.50 -Area of Debridement (cm) - Length 8.3 9.0 7.5 -Area of Debridement (cm) - Width 11.0 9.0 9.0 -Total Square (Area) (cm) 91.30 81.00 67.50 -Tunneling No No -Undermining/Tunneling No No -Circular Undermining No No -Wound/Ulcer Outcome Not Healed Not Healed Not Healed -Ulcer Cleansing Rinsed/ Rinsed/ Rinsed/ Irrigated with Irrigated with Irrigated with Saline Saline Saline -Foul Odor after Cleansing No No No -Bioengineered Tissue No No No -Bleeding Controlled with Pressure Pressure Pressure -Offloading -Treatment Response Procedure Procedure Procedure Tolerated Well Tolerated Well Tolerated Well -Debridement - Subq, 1st 20sq cm Yes Yes No -Debridement, SubQ, ea addt'l 20sq cm 5 5 or part thereof Pain Scale: 0-10 Numeric Is Patient Pain Free? 03/29/21 09:05 Wound Center Nurse 2 #8 RLE Post -Time 09:09 -Correct Patient Yes -Correct Side, Site, Position Yes -Correct Procedure Yes -Procedure Performed Yes -Type of Procedure Debridement -Clinical Debridement Subcutaneous -Tissue Removed Subcutaneous -Post Debridement (cm) - Length 5.0 -Post Debridement (cm) - Width 2.7 -Post Debridement (cm) - Depth 0.2 -Total Square (Post) (cm) 13.50 -Area of Debridement (cm) - Length 5 -Area of Debridement (cm) - Width 2.7 -Total Square (Area) (cm) 13.5 -Tunneling No -Undermining/Tunneling No -Circular Undermining No -Wound/Ulcer Outcome Not Healed -Ulcer Cleansing Rinsed/ Irrigated with Saline -Foul Odor after Cleansing No -Bioengineered Tissue No -Bleeding Controlled with Pressure -Offloading No -Treatment Response Procedure Tolerated Well -Debridement - Subq, 1st 20sq cm No -Debridement, SubQ, ea addt'l 20sq cm or part thereof #7 RLE Ant Cluster -Time 09:08 -Correct Patient Yes -Correct Side, Site, Position Yes -Correct Procedure Yes -Procedure Performed Yes -Type of Procedure Debridement -Clinical Debridement Subcutaneous -Tissue Removed Subcutaneous -Post Debridement (cm) - Length 7.8 -Post Debridement (cm) - Width 9 -Post Debridement (cm) - Depth 0.2 -Total Square (Post) (cm) 70.2 -Area of Debridement (cm) - Length 7.8 -Area of Debridement (cm) - Width 9 -Total Square (Area) (cm) 70.2 -Tunneling No -Undermining/Tunneling No -Circular Undermining No -Wound/Ulcer Outcome Not Healed -Ulcer Cleansing Rinsed/ Irrigated with Saline -Foul Odor after Cleansing No -Bioengineered Tissue No -Bleeding Controlled with Pressure -Offloading No -Treatment Response Procedure Tolerated Well -Debridement - Subq, 1st 20sq cm Yes -Debridement, SubQ, ea addt'l 20sq cm 4 or part thereof Pain Scale: 0-10 Numeric Is Patient Pain Free? Yes WC - Nurse 3 - General Ulcer D/C NN Start: 03/05/21 08:35 Freq: Status: Active Protocol: Activity Type Activity Date Activity User E-Sign Co-Sign Detail Recorded Client Recorded Date Recorded By Document 03/05/21 09:10 [place] [id number] 03/05/21 09:12 AK Document 03/09/21 13:35 [facility] [id number] 03/09/21 13:37 BM Document 03/12/21 09:21 AK [id number] 03/12/21 09:23 AK Document 03/15/21 11:24 DL [id number] 03/15/21 11:30 DL Document 03/17/21 12:54 PL [id number] 03/18/21 06:54 PL Document 03/19/21 09:12 MT [id number] 03/19/21 09:18 MT Document 03/22/21 14:07 BM [id number] 03/22/21 14:21 BMF Document 03/25/21 11:14 RB [id number] 03/25/21 11:18 RB Document 03/29/21 09:29 BMF [id number] 03/29/21 09:30 BMF 03/05/21 03/09/21 03/12/21 09:10 13:35 09:21 Wound Care Nurse 3 #8 RLE Post -Ulcer Cleansing Rinsed/ Soap and Water Rinsed/ Irrigated with Irrigated with Saline Saline -Foul Odor after Cleansing No No No -Negative Pressure Wound Therapy N/A N/A -Primary Dressing Applied Aquacel AG 4x4 Aquacel AG 4x4, Aquacel AG 4x4, Optilok 6.5x10 Optilok 6.5x10 -Other Dressing -Primary Dressing Covered/Secured with -Other Covering DRSG PER DL RANGER AIDE -Aquacel AG 4x4 1 1 0 -Optilok 6.5x10 1 1 #7 RLE Ant Cluster -Ulcer Cleansing Rinsed/ Soap and Water Rinsed/ Irrigated with Irrigated with Saline Saline -Foul Odor after Cleansing No No No -Negative Pressure Wound Therapy N/A N/A -Primary Dressing Applied Aquacel AG 4x4 Aquacel AG 4x4, Aquacel AG 4x4, Optilok 6.5x10 Optilok 8x12 -Other Dressing -Primary Dressing Covered/Secured with -Other Covering UNNA BOOT PER DL RANGER AIDE -Aquacel AG 4x4 0 0 0 -Optilok 6.5x10 1 -Optilok 8x12 1 Right -Lotion applied to leg before No No compression wrap -Multi-Layered Wrap Application Unna Boot - Unna Boot - Unna Boot - Right ($) Right ($) Right ($) -Other Treatment Response Procedure Tolerated Well Vital Signs Temperature (97.8 F-99.1 F) 97.3 F L Temperature Source Temporal Pulse Rate (60-100) 72 Pulse Location Monitor Respiratory Rate (12-18) 24 H Respiratory rate source Observation Oxygen Delivery Method Room Air Blood Pressure (90/60-120/80) 166/67 H Blood Pressure Mean (mm Hg) 100 Source Monitor Position Sitting Blood Pressure Location Left Arm Pain Scale: 0-10 Numeric Is Patient Pain Free? Yes WC - Visit Discharge Discharge Condition Stable Stable Stable Ambulatory Status Ambulatory,Cane Ambulatory Ambulatory,Cane Transportation Private Auto Private Auto Private Auto Medication Reconcilliation completed & No No provided to patient/care provider Clinical Summary of Care Provided Yes Yes 03/15/21 03/17/21 03/19/21 11:24 12:54 09:12 Wound Care Nurse 3 #8 RLE Post -Ulcer Cleansing Soap and Water Rinsed/ Irrigated with Saline -Foul Odor after Cleansing No -Negative Pressure Wound Therapy -Primary Dressing Applied Aquacel AG 4x4 Aquacel AG 4x4 -Other Dressing superabsorber -Primary Dressing Covered/Secured with Dry Gauze & Dry Gauze, Roll Gauze, Secured with Secured with Tape Tape -Other Covering Topical Steroid Cream -Aquacel AG 4x4 1 1 -Optilok 6.5x10 #7 RLE Ant Cluster -Ulcer Cleansing Soap and Water -Foul Odor after Cleansing No -Negative Pressure Wound Therapy -Primary Dressing Applied -Other Dressing Aqaucel AG/ Superabsorber -Primary Dressing Covered/Secured with Dry Gauze & Dry Gauze, Roll Gauze, Secured with Secured with Tape Tape -Other Covering Topical Steroid Cream -Aquacel AG 4x4 -Optilok 6.5x10 -Optilok 8x12 Right -Lotion applied to leg before compression wrap -Multi-Layered Wrap Application Multi-Layer Unna Boot - Multi-Layer Comp - Right ($ Right ($) Comp - Right ($ ) ) -Other Treatment Response Procedure Tolerated Well Vital Signs Temperature (97.8 F-99.1 F) 96.8 F L Temperature Source Temporal Pulse Rate (60-100) 63 Pulse Location Monitor Respiratory Rate (12-18) 22 H Respiratory rate source Observation Oxygen Delivery Method Blood Pressure (90/60-120/80) 152/78 H Blood Pressure Mean (mm Hg) 102 Source Monitor Position Blood Pressure Location Pain Scale: 0-10 Numeric Is Patient Pain Free? Yes WC - Visit Discharge Discharge Condition Stable Stable Ambulatory Status Ambulatory,Cane Ambulatory, Walker Transportation Private Auto Private Auto Medication Reconcilliation completed & No provided to patient/care provider Clinical Summary of Care Provided Yes 03/22/21 03/25/21 03/29/21 14:07 11:14 09:29 Wound Care Nurse 3 #8 RLE Post -Ulcer Cleansing Soap and Water Rinsed/ Irrigated with Saline -Foul Odor after Cleansing No No -Negative Pressure Wound Therapy -Primary Dressing Applied Aquacel AG 4x4, Aquacel AG 4x4, Aquacel AG 4x4, Optilok 6.5x10 Optilok 6.5x10 NonAdherent Contact Layer -Other Dressing drsg per dl customer support assistant -Primary Dressing Covered/Secured with Other -Other Covering drsg per dl customer support assistant abd -Aquacel AG 4x4 1 1 1 -Optilok 6.5x10 1 1 #7 RLE Ant Cluster -Ulcer Cleansing Soap and Water Rinsed/ Irrigated with Saline -Foul Odor after Cleansing No No -Negative Pressure Wound Therapy -Primary Dressing Applied Aquacel AG 4x4, Optilok 8x12 Aquacel AG 4x4, Optilok 8x12 NonAdherent Contact Layer -Other Dressing drsg per dl customer support assistant aquacel ag drsg per dl customer support assistant -Primary Dressing Covered/Secured with Other -Other Covering abd -Aquacel AG 4x4 0 0 -Optilok 6.5x10 -Optilok 8x12 1 1 Right -Lotion applied to leg before compression wrap -Multi-Layered Wrap Application Multi-Layer Multi-Layer Multi-Layer Comp - Right ($ Comp - Right ($ Comp - Right ($ ) ) ) -Other applied per dl customer support assistant Treatment Response Procedure Procedure Procedure Tolerated Well Tolerated Well Tolerated Well Vital Signs Temperature (97.8 F-99.1 F) 96.4 F L 96.2 F L Temperature Source Temporal Temporal Pulse Rate (60-100) 91 74 Pulse Location Monitor Monitor Respiratory Rate (12-18) 18 18 Respiratory rate source Observation Observation Oxygen Delivery Method Room Air Blood Pressure (90/60-120/80) 156/91 H 132/47 H Blood Pressure Mean (mm Hg) 112 75 Source Monitor Monitor Position Sitting Semi-Fowlers Blood Pressure Location Left Forearm Left Arm Pain Scale: 0-10 Numeric Is Patient Pain Free? Yes Yes Yes WC - Visit Discharge Discharge Condition Stable Stable Stable Ambulatory Status Ambulatory,Cane Ambulatory Ambulatory,Cane Transportation Private Auto Private Auto Private Auto Medication Reconcilliation completed & No provided to patient/care provider Clinical Summary of Care Provided Yes Additional Wound Wound debrided: posterior leg ulcer Laterality: Right Type of Debridement: Excisional debridement Anesthesia Used: 5% Lidocaine Gel Depth: Down to and including healthy tissue and in the subcutaneous layer Percentage of wound debrided: 100 Instrument Used: 5mm curette Tissue Removed: Subcutaneous tissue and slough Severity: Fat Layer Exposed Amount of bleeding with debridement: Mild Bleeding Controlled with: Pressure and Compression and gauze Patient tolerated procedure: Patient tolerated procedure well Assessment/Plan Assessment/Plan (1) Ulcer of right lower extremity with fat layer exposed: CODE(S): L97.912 - Non-pressure chronic ulcer of unspecified part of right lower leg with fat layer exposed (2) Nonhealing ulcer of right lower extremity: CODE(S): L97.919 - Non-pressure chronic ulcer of unspecified part of right lower leg with unspecified severity QUALIFIERS: Non-pressure ulcer stage: with fat layer exposed Qualified Code(s): L97.912 - Non-pressure chronic ulcer of unspecified part of right lower leg with fat layer exposed (3) Venous ulcer of right leg: CODE(S): I83.019 - Varicose veins of right lower extremity with ulcer of unspecified site; L97.919 - Non-pressure chronic ulcer of unspecified part of right lower leg with unspecified severity (4) Venous insufficiency: (5) Lymphedema: CODE(S): I89.0 - Lymphedema, not elsewhere classified (6) Morbid obesity: CODE(S): E66.01 - Morbid (severe) obesity due to excess calories (7) Excoriation of right lower leg: CODE(S): S80.811A - Abrasion, right lower leg, initial encounter QUALIFIERS: Encounter type: initial encounter Qualified Code(s): S80.811A - Abrasion, right lower leg, initial encounter (8) Intertrigo: CODE(S): L30.4 - Erythema intertrigo PLAN: Subcutaneous debridement was performed today and tolerated fairly well. With the patient wearing her compression appropriately, she does not have the amount of drainage as previously documented. Her right anterior leg ulcer is having a large amount of dry, sloughing scabbing, most likely because it is too dry. Will start to moisten the Aquacel-Ag and cover with adaptic to both the right anterior leg and posterior leg ulcers. She will continue to use the Clotrimazole/Betamethazone ointment to the right anterior leg ulcer irene wound at the time of the dressing changes. Topped with ABD pads. 3M 2 layer wraps will be placed and changed on and next Monday, which is when the dressings to these ulcers should be changed also. She has an appointment scheduled at the [facility] to see a lymphedema specialist in May. She will return on and next Monday for nurse visits to have dressing and 3M 2 layer wraps changed. She will follow up with Lula on 04/09/21. She is to return sooner or go to the ED if her symptoms worsen or new symptoms arise.
[2021-04-01 13:06] VITALS: BP 138/69; PULSE 78; TEMP 35.3; BMI 49.0
== END 2021-04-02 23:59 ==
LOC: WC 11:30
PROVIDERS: PCP Family Medicine; Visit Provider Nurse Practitioner Family
DX: I83.018 Varicose veins of right lower extremity with ulcer other part of lower leg (principal); L97.812 Non-pressure chronic ulcer of other part of right lower leg with fat layer exposed; L03.115 Cellulitis of right lower limb; R22.41 Localized swelling, mass and lump, right lower limb; I89.0 Lymphedema, not elsewhere classified; L30.4 Erythema intertrigo; S80.811A Abrasion, right lower leg, initial encounter; X58.XXXA Exposure to other specified factors, initial encounter; Y93.9 Activity, unspecified; Y92.9 Unspecified place or not applicable; Y99.9 Unspecified external cause status; I48.91 Unspecified atrial fibrillation; E03.9 Hypothyroidism, unspecified; E66.01 Morbid (severe) obesity due to excess calories; Z68.42 Body mass index [BMI] 45.0-49.9, adult; Z79.01 Long term (current) use of anticoagulants; Z79.890 Hormone replacement therapy; Z79.899 Other long term (current) drug therapy
CPT/HCPCS: 11042; 11045; 29580; 29581; 87070; 87075; 87205

== ENCOUNTER 2021-04-30 08:15 | Outpatient (RCR) | payer MEDICAID, SELFPAY ==
[2021-04-03 00:15] VITALS: BP 138/69; PULSE 78; RESP 18; TEMP 35.3; BMI 49.0
[2021-04-05 14:08] VITALS: BP 177/65; PULSE 66; RESP 16; TEMP 35.5; BMI 49.0
[2021-04-08 09:36] VITALS: BP 141/67; PULSE 74; RESP 20; TEMP 36.4; BMI 49.0
--- NOTE | 2021-04-08 12:24 | PN.PCM_ITS ---
History of Present Illness Date of Service: 04/08/21 Chief Complaint: Ulcers of right lower extremity History of Wound: [facility] for evaluation and treatment of bilateral lower leg ulcers. The patient is [facility] treatment of prior lower extremity ulcers. She has a PMH significant for chronic lymphedema, venous insufficiency, atrial fibrillation (on Eliquis), morbid obesity, and hypothyroidism. She reported development of her posterior right lower leg ulcer in April 2019. She initially was using Manuka honey to this ulcer, but then started using Vaseline instead. She reported her anterior right lower extremity ulcer developed in August, and she had been applying Vaseline to this daily. Her anterior left lower extremity ulcer developed approximately 1 week prior to her initial January 2020 appt, and she had been applying Vaseline to this daily as well. She notes that approximately 4 to 6 weeks prior, the ulcer on her posterior right lower leg began increasing in soreness. She has lymphedema pumps at home, but had not been using these due to reported pain with use which is related to her ulcers. She does not use compression at home. She reports frequent dangling of her legs while seated at her computer for work. She does not frequently elevate her feet when seated. The patient denied any fever, chills, nausea, vomiting, or diarrhea on initial evaluation. She denied any increasing redness or swelling of the affected area at that time as well. She did note foul-smelling drainage from her right lower extremity. She had not been on any recent antibiotics prior to evaluation. She reported having lab work done approximately 6 weeks prior; these records were requested for review multiple times but never obtained. Lab work was ordered and completed in February 2020 and was significant for the following: CBCD: RBC 3.83 (L), hemoglobin 11.3 (L), hematocrit 34.8 (L), platelets 143 (L) ESR: 93 (H) CMP: Albumin 3.0 (L) CRP: 111 (H) Prealbumin 18.6 (L) She had lower extremity arterial studies completed 05/16/16 which showed relatively normal arterial perfusion to ankle level bilaterally. Triphasic waveforms were noted at ankle level bilaterally. Resting ankle-brachial indices were bilaterally normal. The right digital-brachial index is normal, consistent with normal arterial perfusion at distal, small-vessel level in the right lower extremity. The left digital-brachial index is mildly diminished, suggesting the presence of mild, distal, small-vessel arterial occlusive disease in the left lower extremity. Venous and arterial studies were ordered on 09/11/2020, and the patient was scheduled for an appointment in September for these tests. However the tests were never completed. The patient has continually expressed reluctance regarding wound work-up, and noncompliance with orders. Wound cultures collected on 01/03/2020 were positive for 3+ Aeromonas hydrophilia/caviae, 2+ Citrobacter braakii, 1+ Proteus mirabilis, rare Staphylococus aureus, anaerobic cocci, actinomyces odontolyticus, Bacteroides fragilis; beta-lactamase positive. She completed courses of Levaquin and Augmentin. Weeks later, she developed redness and warmth of a localized lymphedema mass of her right medial thigh; this resolved following a 14-day course of Levaquin and Augmentin. She has continued to have fluctuating redness and warmth of this right medial thigh lymphedema mass. She has completed several courses of antibiotics. Keflex and Levaquin have been of benefit. Doxycycline was not felt to be of significant benefit. A referral to a lymphedema specialist at the [facility] was made, and the importance of scheduling this appointment was discussed with the patient. She has not yet scheduled this appointment. Several conversations have been had with the patient regarding her need for compression and lymphedema management in order for her wounds to heal. She refuses compression. She is noncompliant with elevating her legs. She states she is unable to use her lymphedema pumps at this time due to the size of her legs. Since January 2020, several wound care treatments have been utilized, including Aquacel, Aquacel Ag, Devika. She has completed several applications of advanced skin substitutes (Apligraf, Puraply, and Nushield). Progress of Wound: Patient has had worsening of her wound size and appearance in recent weeks. She has had copious amounts of clear drainage from her right lower extremity, particularly from the anterior RLE. She has severe excoriation of the anterior RLE, as well as new areas of ulceration. She reports she has been changing her super sorb dressings approximately 4 times daily, and they have been saturated when changed. She is using Aquacel Ag to her right lower extremity anterior and posterior ulcers. She again states that she has not been using her lymphedema pumps often, but has been trying to use them more. She does not elevate her leg regularly. She does not use compression. She has not rescheduled her appointment with the lymphedema specialist at the [facility]. She expresses reluctance about lymphedema surgery, stating she knows people who have had surgery and has had numerous complications, as well as healthcare providers that recommend exhausting conservative treatment efforts prior to consideration of surgery. The patient's wound cultures from 02/05/2021 were positive for 1+ Enterococcus faecalis, and rare MRSA. She was sent to the emergency department for IV antibiotic treatment. She received a dose of IV vancomycin 2000mg and was discharged on 10-day courses of doxycycline and Augmentin, which she has completed. Hospital labs are as follows: CBCD: Unremarkable CMP: Unremarkable Lactic acid: Normal INR: Normal The patient was seen by Dr. Desai on 02/16/2021 for [facility]. Aquacel Ag was continued, and the patient was started on Unna boots for compression and treatment of right lower extremity excoriation. Progress of Wound: Courtesy visit. Improving ulcers. No new concerns at this time. Subjective Subjective No chills, fever or feeling of unwell Objective Data Objective Data Vital Signs: Vital Signs Temp Pulse Resp BP 97.6 F L 74 20 H 141/67 H 04/08/21 09:36 04/08/21 09:36 04/08/21 09:36 04/08/21 09:36 Oxygen Delivery Method Room Air Body Mass Index (BMI) 49.0 Charges/Coding Procedures Integumentary 111xxx-113xx: 72717 Shante subq tissue 20 sq cm/< Add On Codes: 55715 Shante subq tissue add-on (Additional square centimeter debrided, please refer to clinical note) Physical Exam Const alert and oriented x3 HEENT normocephalic Head and Scalp: atraumatic Lymph Lymphatic Narrative: Bilateral lower extremity lymphedema Resp normal respiratory effort Cardio regular rate GI Palpation: soft Extremity Extremity Narrative: Bilateral lower extremity edema/lymphedema Skin Wounds: wounds noted Neuro CN's II-XII intact bilaterally Psych Appearance: grossly normal Debridement Note Debridement Note Wound debrided: Right [place]icio Type of Debridement: Excisional debridement Anesthesia Used: 4% Lidocaine Solution Depth: Down to and including healthy tissue and in the subcutaneous layer Percentage of wound debrided: 100 Instrument Used: 5mm curette Tissue Removed: Slough and devitalized tissue Severity: Fat Layer Exposed Amount of bleeding with debridement: Mild Bleeding Controlled with: Pressure Patient tolerated procedure: Patient tolerated procedure well Post-Debridement Measurements and Additional Note: Post-Debridement Measurements/Treatment - Nurse 1 - General Ulcer Assessment Start: 04/05/21 14:08 Freq: Status: Active Protocol: SAL Activity Type Activity Date Activity User E-Sign Co-Sign Detail Recorded Client Recorded Date Recorded By Document 04/05/21 14:08 BMF [id number] 04/05/21 14:11 BMF Document 04/08/21 09:36 DL [id number] 04/08/21 09:43 DL 04/05/21 04/08/21 14:08 09:36 WC - Today's Visit Information Type of service Follow-up Visit Follow-up Visit (Physician/[facility] [employer] (Physician/[facility] [employer] ) ) Arrival Mode Ambulatory,Cane Ambulatory Transfer Assistance None None Patient Identification Verified (Name & Yes Yes ) Patient Requires Transmission-Based No Precautions Height and Weight Body Mass Index (BMI) 49.0 49.0 BMI Classification Obese Obese Vital Signs Temperature (97.8 F-99.1 F) 96 F L 97.6 F L Temperature Source Temporal Temporal Pulse Rate (60-100) 66 74 Pulse Location Monitor Monitor Respiratory Rate (12-18) 16 20 H Respiratory rate source Observation Oxygen Delivery Method Room Air Blood Pressure (90/60-120/80) 177/65 H 141/67 H Blood Pressure Mean (mm Hg) 102 91 Source Monitor Monitor Position Sitting Blood Pressure Location Left Arm History Since Last Visit- (Skip if this is Patient's initial visit) Have you changed medications since your No No last visit? Any new allergies or adverse reactions No No Had a fall/change in ADL's that may No No increase risk of falls Signs or symptoms of abuse and/or No No neglect since last visit Have you been in the hospital since your No last visit? Has dressing in place as prescribed Yes Yes Has compression in place as prescribed Yes Has offloadiing in place as prescribed N/A N/A Experienced any changes in pain level or No No management Left Footwear Regular Shoe Right Footwear Regular Shoe Pain Scale: 0-10 Numeric Is Patient Pain Free? Yes Yes - Nurse 1 - General Ulcer Measurement Start: 04/05/21 14:08 Freq: Status: Active Protocol: Activity Type Activity Date Activity User E-Sign Co-Sign Detail Recorded Client Recorded Date Recorded By Document 04/05/21 14:08 [facility] [id number] 04/05/21 14:11 [facility] Document 04/08/21 09:36 DL [id number] 04/08/21 09:43 DL 04/05/21 04/08/21 14:08 09:36 #8 RLE Post -Current Size (cm) - Length 4.6 -Current Size (cm) - Width 1.9 -Current Size (cm) - Depth 0.2 -Total Square Cm 8.74 -Photo Taken No -Exudate Amt Medium -Exudate Type Serosanguineous -Wound Margin Distinct, Outline Attached -Granulation Amt Large (67-100%) -Granulation Quality Red -Necrosis Amt Small (1-33%) -Necrotic Tissue Type Adherent Slough -Structure Exposed N/A -Texture (Irene-wound Skin Appearance) Excoriation, Scarring,Rash -Moisture (Irene-wound Skin Appearance) Weeping -Color (Irene-wound Skin Appearance) Erythema -Temperature (Irene-wound Skin No Abnormality Appearance) (Pt Warm) -Tenderness on Palpation (Irene-wound No Skin Appearance) -Ulcer Cleansing Soap and Water -Foul Odor after Cleansing No -Anesthetic Used 4% Lidocaine Solution #7 RLE Ant Cluster -Current Size (cm) - Length 2.2 -Current Size (cm) - Width 4 -Current Size (cm) - Depth 0.1 -Total Square Cm 8.8 -Photo Taken No -Exudate Amt Medium -Exudate Type Serosanguineous -Wound Margin Indistinct, Non -Visible -Granulation Amt Medium (34-66%) -Granulation Quality Red -Necrosis Amt Medium (34-66%) -Necrotic Tissue Type Adherent Slough -Structure Exposed N/A -Texture (Irene-wound Skin Appearance) Excoriation, Scarring,Rash -Moisture (Irene-wound Skin Appearance) Weeping -Color (Irene-wound Skin Appearance) Erythema -Temperature (Irene-wound Skin No Abnormality Appearance) (Pt Warm) -Tenderness on Palpation (Irene-wound No Skin Appearance) -Ulcer Cleansing Soap and Water -Anesthetic Used 4% Lidocaine Solution Wound Center Nurse 1 Lower Limb Edema Present Yes Right Calf (cm) 64.5 66.2 Right Ankle (cm) 31 29 WC - Nurse 2 - General Ulcer CM Notes Start: 04/05/21 14:08 Freq: Status: Active Protocol: Activity Type Activity Date Activity User E-Sign Co-Sign Detail Recorded Client Recorded Date Recorded By Document 04/08/21 09:51 MW [id number] 04/08/21 09:57 MW 04/08/21 09:51 Wound Center Nurse 2 #8 RLE Post -Time 09:51 -Correct Patient Yes -Correct Side, Site, Position Yes -Correct Procedure Yes -Procedure Performed Yes -Type of Procedure Debridement -Clinical Debridement Subcutaneous -Tissue Removed Subcutaneous -Post Debridement (cm) - Length 4.5 -Post Debridement (cm) - Width 2.5 -Post Debridement (cm) - Depth 0.2 -Total Square (Post) (cm) 11.25 -Area of Debridement (cm) - Length 4.5 -Area of Debridement (cm) - Width 2.5 -Total Square (Area) (cm) 11.25 -Tunneling No -Undermining/Tunneling No -Circular Undermining No -Wound/Ulcer Outcome Not Healed -Ulcer Cleansing Rinsed/ Irrigated with Saline -Foul Odor after Cleansing No -Bioengineered Tissue No -Bleeding Controlled with Pressure -Offloading No -Treatment Response Procedure Tolerated Well -Debridement - Subq, 1st 20sq cm Yes -Debridement, SubQ, ea addt'l 20sq cm 1 or part thereof #7 RLE Ant Cluster -Time 09:51 -Correct Patient Yes -Correct Side, Site, Position Yes -Correct Procedure Yes -Procedure Performed Yes -Type of Procedure Debridement -Clinical Debridement Subcutaneous -Tissue Removed Subcutaneous -Post Debridement (cm) - Length 5.0 -Post Debridement (cm) - Width 3.0 -Post Debridement (cm) - Depth 0.1 -Total Square (Post) (cm) 15.00 -Area of Debridement (cm) - Length 5.0 -Area of Debridement (cm) - Width 3.0 -Total Square (Area) (cm) 15.00 -Tunneling No -Undermining/Tunneling No -Circular Undermining No -Wound/Ulcer Outcome Not Healed -Ulcer Cleansing Rinsed/ Irrigated with Saline -Foul Odor after Cleansing No -Bioengineered Tissue No -Bleeding Controlled with Pressure -Offloading No -Treatment Response Procedure Tolerated Well -Debridement - Subq, 1st 20sq cm No Pain Scale: 0-10 Numeric Is Patient Pain Free? Yes - Nurse 3 - General Ulcer D/C NN Start: 04/05/21 14:08 Freq: Status: Active Protocol: Activity Type Activity Date Activity User E-Sign Co-Sign Detail Recorded Client Recorded Date Recorded By Document 04/05/21 14:08 [facility] [id number] 04/05/21 14:11 [facility] Document 04/08/21 10:12 [id number] 04/08/21 10:13 04/05/21 04/08/21 14:08 10:12 Vital Signs Temperature (97.8 F-99.1 F) 96 F L Temperature Source Temporal Pulse Rate (60-100) 66 Pulse Location Monitor Respiratory Rate (12-18) 16 Respiratory rate source Observation Oxygen Delivery Method Room Air Blood Pressure (90/60-120/80) 177/65 H Blood Pressure Mean (mm Hg) 102 Source Monitor Position Sitting Blood Pressure Location Left Arm Pain Scale: 0-10 Numeric Is Patient Pain Free? Yes Yes Wound Care Nurse 3 #8 RLE Post -Ulcer Cleansing Soap and Water Rinsed/ Irrigated with Saline -Foul Odor after Cleansing No No -Primary Dressing Applied Aquacel AG 4x4, Aquacel AG 4x4, NonAdherent NonAdherent Contact Layer Contact Layer -Other Dressing drsg per ak [employer] and beverage operations manager -Primary Dressing Covered/Secured with Other -Other Covering abd abd pad -Aquacel AG 4x4 1 1 #7 RLE Ant Cluster -Ulcer Cleansing Soap and Water Rinsed/ Irrigated with Saline -Foul Odor after Cleansing No No -Primary Dressing Applied Aquacel AG 4x4, Aquacel AG 4x4, NonAdherent NonAdherent Contact Layer Contact Layer -Other Dressing drsg per ak food and beverage operations manager -Primary Dressing Covered/Secured with Other -Other Covering abd abd pad -Aquacel AG 4x4 0 0 Right -Multi-Layered Wrap Application Multi-Layer Multi-Layer Comp - Right ($ Comp - Right ($ ) ) Treatment Response Procedure Tolerated Well - Visit Discharge Discharge Condition Stable Stable Ambulatory Status Ambulatory,Cane Ambulatory Transportation Private Auto Medication Reconcilliation completed & Yes provided to patient/care provider Clinical Summary of Care Provided Yes Additional Wound Wound debrided: Right lower extremity ( Posterior ) Type of Debridement: Excisional debridement Anesthesia Used: 4% Lidocaine Solution Depth: Down to and including healthy tissue and in the subcutaneous layer Percentage of wound debrided: 100 Instrument Used: 5mm curette Tissue Removed: Slough and devitalized tissue Severity: Fat Layer Exposed Amount of bleeding with debridement: Mild Bleeding Controlled with: Pressure Patient tolerated procedure: Patient tolerated procedure well Assessment/Plan Assessment/Plan (1) Ulcer of right lower extremity with fat layer exposed: CODE(S): L97.912 - Non-pressure chronic ulcer of unspecified part of right lower leg with fat layer exposed (2) Nonhealing ulcer of right lower extremity: CODE(S): L97.919 - Non-pressure chronic ulcer of unspecified part of right lower leg with unspecified severity QUALIFIERS: Non-pressure ulcer stage: with fat layer exposed Qualified Code(s): L97.912 - Non-pressure chronic ulcer of unspecified part of right lower leg with fat layer exposed (3) Venous ulcer of right leg: CODE(S): I83.019 - Varicose veins of right lower extremity with ulcer of unspecified site; L97.919 - Non-pressure chronic ulcer of unspecified part of right lower leg with unspecified severity (4) Venous insufficiency: (5) Lymphedema: CODE(S): I89.0 - Lymphedema, not elsewhere classified (6) Morbid obesity: CODE(S): E66.01 - Morbid (severe) obesity due to excess calories (7) Excoriation of right lower leg: CODE(S): S80.811A - Abrasion, right lower leg, initial encounter QUALIFIERS: Encounter type: initial encounter Qualified Code(s): S80.811A - Abrasion, right lower leg, initial encounter (8) Intertrigo: CODE(S): L30.4 - Erythema intertrigo PLAN: Debridement done as documented above, procedure was well-tolerated. Improving ulcers. Continue Aquasol AG. Change daily to twice daily depending on drainage. Continue Adaptic over top and 3M wrap for edema management. Leg elevation, increase protein intake and exercise as tolerated. Her questions were answered and she was advised to call with any further questions or concerns. Follow-up in a week with Lula Huggins NP. This note was generated with [employer] software. It may contain incorrect words, spelling, and punctuation that were not noted in checking the note before signing.
[2021-04-12 14:06] VITALS: BP 172/95; PULSE 70; RESP 22; TEMP 35.8; BMI 49.0
[2021-04-16 08:32] VITALS: BP 135/93; PULSE 84; TEMP 35.6; BMI 49.0
--- NOTE | 2021-04-16 13:13 | PN.PCM_ITS ---
History of Present Illness Date of Service: 04/16/21 Chief Complaint: Ulcers of right lower extremity History of Wound: [facility] for evaluation and treatment of bilateral lower leg ulcers. The patient is [facility] from treatment of prior lower extremity ulcers. She has a PMH significant for chronic lymphedema, venous insufficiency, atrial fibrillation (on Eliquis), morbid obesity, and hypothyroidism. She reported development of her posterior right lower leg ulcer in April 2019. She initially was using Manuka honey to this ulcer, but then started using Vaseline instead. She reported her anterior right lower extremity ulcer developed in August, and she had been applying Vaseline to this daily. Her anterior left lower extremity ulcer developed approximately 1 week prior to her initial January 2020 appt, and she had been applying Vaseline to this daily as well. She notes that approximately 4 to 6 weeks prior, the ulcer on her posterior right lower leg began increasing in soreness. She has lymphedema pumps at home, but had not been using these due to reported pain with use which is related to her ulcers. She does not use compression at home. She reports frequent dangling of her legs while seated at her computer for work. She does not frequently elevate her feet when seated. The patient denied any fever, chills, nausea, vomiting, or diarrhea on initial evaluation. She denied any increasing redness or swelling of the affected area at that time as well. She did note foul-smelling drainage from her right lower extremity. She had not been on any recent antibiotics prior to evaluation. She reported having lab work done approximately 6 weeks prior; these records were requested for review multiple times but never obtained. Lab work was ordered and completed in February 2020 and was significant for the following: CBCD: RBC 3.83 (L), hemoglobin 11.3 (L), hematocrit 34.8 (L), platelets 143 (L) ESR: 93 (H) CMP: Albumin 3.0 (L) CRP: 111 (H) Prealbumin 18.6 (L) She had lower extremity arterial studies completed 05/16/16 which showed relatively normal arterial perfusion to ankle level bilaterally. Triphasic waveforms were noted at ankle level bilaterally. Resting ankle-brachial indices were bilaterally normal. The right digital-brachial index is normal, consistent with normal arterial perfusion at distal, small-vessel level in the right lower extremity. The left digital-brachial index is mildly diminished, suggesting the presence of mild, distal, small-vessel arterial occlusive disease in the left lower extremity. Venous and arterial studies were ordered on 09/11/2020, and the patient was scheduled for an appointment in September for these tests. However the tests were never completed. The patient has continually expressed reluctance regarding wound work-up, and noncompliance with orders. Wound cultures collected on 01/03/2020 were positive for 3+ Aeromonas hydrophilia/caviae, 2+ Citrobacter braakii, 1+ Proteus mirabilis, rare Staphylococus aureus, anaerobic cocci, actinomyces odontolyticus, Bacteroides fragilis; beta-lactamase positive. She completed courses of Levaquin and Augmentin. Weeks later, she developed redness and warmth of a localized lymphedema mass of her right medial thigh; this resolved following a 14-day course of Levaquin and Augmentin. She has continued to have fluctuating redness and warmth of this right medial thigh lymphedema mass. She has completed several courses of antibiotics. Keflex and Levaquin have been of benefit. Doxycycline was not felt to be of significant benefit. A referral to a lymphedema specialist at the [facility] was made, and the importance of scheduling this appointment was discussed with the patient. She has not yet scheduled this appointment. Several conversations have been had with the patient regarding her need for compression and lymphedema management in order for her wounds to heal. She refuses compression. She is noncompliant with elevating her legs. She states she is unable to use her lymphedema pumps at this time due to the size of her legs. Since January 2020, several wound care treatments have been utilized, including Aquacel, Aquacel Ag, Devika. She has completed several applications of advanced skin substitutes (Apligraf, Puraply, and Nushield). Progress of Wound: Patient has had worsening of her wound size and appearance in recent weeks. She has had copious amounts of clear drainage from her right lower extremity, particularly from the anterior RLE. She has severe excoriation of the anterior RLE, as well as new areas of ulceration. She reports she has been changing her super sorb dressings approximately 4 times daily, and they have been saturated when changed. She is using Aquacel Ag to her right lower extremity anterior and posterior ulcers. She again states that she has not been using her lymphedema pumps often, but has been trying to use them more. She does not elevate her leg regularly. She does not use compression. She has not rescheduled her appointment with the lymphedema specialist at the [facility]. She expresses reluctance about lymphedema surgery, stating she knows people who have had surgery and has had numerous complications, as well as healthcare providers that recommend exhausting conservative treatment efforts prior to consideration of surgery. The patient's wound cultures from 02/05/2021 were positive for 1+ Enterococcus faecalis, and rare MRSA. She was sent to the emergency department for IV antibiotic treatment. She received a dose of IV vancomycin 2000mg and was discharged on 10-day courses of doxycycline and Augmentin, which she has completed. Hospital labs were as follows: CBCD: Unremarkable CMP: Unremarkable Lactic acid: Normal INR: Normal The patient was seen by Dr. Desai on 02/16/2021 for [facility]. Aquacel Ag was continued, and the patient was started on Unna boots for compression and treatment of right lower extremity excoriation. Progress of Wound: The patient continues to be compliant with the use of compression (now using 3M wraps), and is tolerating these well. I am satisfied with her compliance at this time. She has had a significant reduction in her right lower extremity swelling. The excoriation and drainage of the right lower extremity has significantly im proved with the use of compression. Her periulcer excoriation has also significantly benefited from the use of clotrimazole betamethasone ointment. Her wounds are improved in size and appearance today. No purulent or malodorous drainage from her wounds is noted. Wound cultures from 03/12/2021 were negative for aerobic and anaerobic bacterial growth. She denies fevers, poor appetite, or generalized malaise. Objective Data Objective Data Vital Signs: Vital Signs Temp Pulse Resp BP 96.1 F L 84 22 H 135/93 H 04/16/21 08:32 04/16/21 08:32 04/12/21 14:06 04/16/21 08:32 Oxygen Delivery Method Room Air Body Mass Index (BMI) 49.0 Charges/Coding Procedures Integumentary 111xxx-113xx: [id number] Shante subq tissue 20 sq cm/< Physical Exam Const alert and no apparent distress General Appearance: cooperative, comfortable and well kempt Nutritional Appearance: morbidly obese HEENT Head and Scalp: normocephalic and atraumatic Neck supple Lymph Lymphatic: lymphedema severe (worse in RLE) Resp normal respiratory effort Cardio Peripheral Pulses: dorsalis pedis pulses present right 2+ Extremity normal capillary refill and no joint enlargement General Extremity: edema right lower extremity mild; Negative for clubbing or cyanosis Skin Rashes: rashes noted distal RLE Narrative: Right lower extremity erythema and excoriation is improved, though still present to a lesser degree excoriation red dry moderate Wounds: wounds noted drainage serous, No malodorous, no odor and surrounding erythema Wound Narrative: No active drainage from her distal RLE. No purulent/malodorous drainage noted. Anterior RLE ulcer cluster with moderate amount of slough and devitalized tissue. Subcutaneous layer exposed. No tunneling, undermining, or probing to bone. No periulcer warmth. Periulcer erythema, warmth, and excoriation significantly improved. RLE posterior ulcer with moderate amount of slough and devitalized tissue present. Mild periulcer erythema present. No periulcer warmth. No tunneling, undermining, or probing to bone. Neuro oriented x3, moves all extremities and no focal motor deficits Psych mental status grossly normal, cooperative and affect normal Debridement Note Debridement Note Wound debrided: Anterior RLE Laterality: Right Type of Debridement: Excisional debridement Anesthesia Used: 4% Lidocaine Solution Depth: in the subcutaneous layer Percentage of wound debrided: 100 Instrument Used: 5mm curette Tissue Removed: Slough and vitalized tissue Severity: Fat Layer Exposed Amount of bleeding with debridement: Mild Bleeding Controlled with: Pressure Patient tolerated procedure: Patient tolerated procedure well Post-Debridement Measurements and Additional Note: Post-Debridement Measurements /Treatment WC - Nurse 1 - General Ulcer Assessment Start: 04/05/21 14:08 Freq: Status: Active Protocol: SAL Activity Type Activity Date Activity User E-Sign Co-Sign Detail Recorded Client Recorded Date Recorded By Document 04/05/21 14:08 [facility] [id number] 04/05/21 14:11 BM Document 04/08/21 09:36 DL [id number] 04/08/21 09:43 DL Document 04/12/21 14:06 DL [id number] 04/12/21 14:16 DL Document 04/16/21 08:32 AK [id number] 04/16/21 08:35 AK 04/05/21 04/08/21 04/12/21 14:08 09:36 14:06 - Today's Visit Information Type of service Follow-up Visit Follow-up Visit Nurse-only (Physician/SAFETY CLOTHING AND EQUIPMENT DEVELOPER (Physician/SAFETY CLOTHING AND EQUIPMENT DEVELOPER Visit ) ) Arrival Mode Ambulatory,Cane Ambulatory Ambulatory Transfer Assistance None None None Patient Identification Verified (Name & Yes Yes Yes ) Patient Requires Transmission-Based No No Precautions Safety Precautions Height and Weight Body Mass Index (BMI) 49.0 49.0 49.0 BMI Classification Obese Obese Obese Vital Signs Temperature (97.8 F-99.1 F) 96 F L 97.6 F L 96.5 F L Temperature Source Temporal Temporal Temporal Pulse Rate (60-100) 66 74 70 Pulse Location Monitor Monitor Monitor Respiratory Rate (12-18) 16 20 H 22 H Respiratory rate source Observation Observation Oxygen Delivery Method Room Air Blood Pressure (90/60-120/80) 177/65 H 141/67 H 172/95 H Blood Pressure Mean (mm Hg) 102 91 120 Source Monitor Monitor Monitor Position Sitting Blood Pressure Location Left Arm History Since Last Visit- (Skip if this is Patient's initial visit) Have you changed medications since your No No No last visit? Any new allergies or adverse reactions No No No Had a fall/change in ADL's that may No No No increase risk of falls Signs or symptoms of abuse and/or No No No neglect since last visit Have you been in the hospital since your No No last visit? Has dressing in place as prescribed Yes Yes Yes Has compression in place as prescribed Yes Yes Has offloadiing in place as prescribed N/A N/A N/A Experienced any changes in pain level or No No No management Left Footwear Regular Shoe Regular Shoe Right Footwear Regular Shoe Regular Shoe Pain Scale: 0-10 Numeric Is Patient Pain Free? Yes Yes Yes 04/16/21 08:32 - Today's Visit Information Type of service Follow-up Visit (Physician/SAFETY CLOTHING AND EQUIPMENT DEVELOPER ) Arrival Mode Ambulatory,Cane Transfer Assistance Patient Identification Verified (Name & Yes ) Patient Requires Transmission-Based No Precautions Safety Precautions NA Height and Weight Body Mass Index (BMI) 49.0 BMI Classification Obese Vital Signs Temperature (97.8 F-99.1 F) 96.1 F L Temperature Source Temporal Pulse Rate (60-100) 84 Pulse Location Monitor Respiratory Rate (12-18) Respiratory rate source Oxygen Delivery Method Blood Pressure (90/60-120/80) 135/93 H Blood Pressure Mean (mm Hg) 107 Source Monitor Position Blood Pressure Location History Since Last Visit- (Skip if this is Patient's initial visit) Have you changed medications since your No last visit? Any new allergies or adverse reactions No Had a fall/change in ADL's that may No increase risk of falls Signs or symptoms of abuse and/or No neglect since last visit Have you been in the hospital since your No last visit? Has dressing in place as prescribed Yes Has compression in place as prescribed Yes Has offloadiing in place as prescribed N/A Experienced any changes in pain level or No management Left Footwear Regular Shoe Right Footwear Regular Shoe Pain Scale: 0-10 Numeric Is Patient Pain Free? Yes WC - Nurse 1 - General Ulcer Measurement Start: 04/05/21 14:08 Freq: Status: Active Protocol: Activity Type Activity Date Activity User E-Sign Co-Sign Detail Recorded Client Recorded Date Recorded By Document 04/05/21 14:08 [facility] [id number] 04/05/21 14:11 [facility] Document 04/08/21 09:36 DL [id number] 04/08/21 09:43 DL Document 04/16/21 08:32 MD [id number] 04/16/21 08:35 AK 04/05/21 04/08/21 04/16/21 14:08 09:36 08:32 #8 RLE Post -Combined with other wound No -Current Size (cm) - Length 4.6 3.7 -Current Size (cm) - Width 1.9 2.3 -Current Size (cm) - Depth 0.2 0.2 -Total Square Cm 8.74 8.51 -Photo Taken No No -Epithelialization None Present -Tunneling No -Undermining/Tunneling No -Circular Undermining No -Exudate Amt Medium Medium -Exudate Type Serosanguineous Serosanguineous -Wound Margin Distinct, Distinct, Outline Outline Attached Attached -Granulation Amt Large (67-100%) None Present (0 %) -Granulation Quality Red -Slough/Fibrin Yes -Necrosis Amt Small (1-33%) Medium (34-66%) -Necrotic Tissue Type Adherent Slough Adherent Slough -Structure Exposed N/A N/A -Texture (Irene-wound Skin Appearance) Excoriation, No Abnormality, Scarring,Rash Assessed -Moisture (Irene-wound Skin Appearance) Weeping Assessed, Weeping -Color (Irene-wound Skin Appearance) Erythema No Abnormality, Assessed -Temperature (Irene-wound Skin No Abnormality No Abnormality Appearance) (Pt Warm) (Pt Warm) -Tenderness on Palpation (Irene-wound No No Skin Appearance) -Ulcer Cleansing Soap and Water Soap and Water -Foul Odor after Cleansing No No -Anesthetic Used 4% Lidocaine 4% Lidocaine Solution Solution #7 RLE Ant Cluster -Combined with other wound No -Current Size (cm) - Length 2.2 7 -Current Size (cm) - Width 4 8 -Current Size (cm) - Depth 0.1 0.1 -Total Square Cm 8.8 56 -Photo Taken No No -Tunneling No -Undermining/Tunneling No -Circular Undermining No -Change in Wound Grade/Stage No -Exudate Amt Medium None Present -Exudate Type Serosanguineous -Wound Margin Indistinct, Non -Visible -Granulation Amt Medium (34-66%) None Present (0 %) -Granulation Quality Red N/A -Slough/Fibrin No -Necrosis Amt Medium (34-66%) None Present (0 %) -Necrotic Tissue Type Adherent Slough -Structure Exposed N/A N/A -Texture (Irene-wound Skin Appearance) Excoriation, Assessed, Scarring,Rash Scarring -Moisture (Irene-wound Skin Appearance) Weeping No Abnormality, Assessed -Color (Irene-wound Skin Appearance) Erythema No Abnormality, Assessed -Temperature (Irene-wound Skin No Abnormality No Abnormality Appearance) (Pt Warm) (Pt Warm) -Tenderness on Palpation (Irene-wound No No Skin Appearance) -Ulcer Cleansing Soap and Water Soap and Water -Foul Odor after Cleansing No -Anesthetic Used 4% Lidocaine 4% Lidocaine Solution Solution Wound Center Nurse 1 Lower Limb Edema Present Yes Right Calf (cm) 64.5 66.2 66 Right Ankle (cm) 31 29 30 WC - Nurse 2 - General Ulcer CM Notes Start: 04/05/21 14:08 Freq: Status: Active Protocol: Activity Type Activity Date Activity User E-Sign Co-Sign Detail Recorded Client Recorded Date Recorded By Document 04/08/21 09:51 MW [id number] 04/08/21 09:57 MW Document 04/16/21 13:[address] [id number] 04/16/21 13:04 PL 04/08/21 04/16/21 09:51 13:02 Wound Center Nurse 2 #8 RLE Post -Time 09:51 08:50 -Correct Patient Yes Yes -Correct Side, Site, Position Yes Yes -Correct Procedure Yes Yes -Procedure Performed Yes Yes -Type of Procedure Debridement Debridement -Clinical Debridement Subcutaneous Subcutaneous -Tissue Removed Subcutaneous Subcutaneous -Post Debridement (cm) - Length 4.5 4.3 -Post Debridement (cm) - Width 2.5 2.0 -Post Debridement (cm) - Depth 0.2 0.2 -Total Square (Post) (cm) 11.25 8.60 -Area of Debridement (cm) - Length 4.5 4.3 -Area of Debridement (cm) - Width 2.5 2.0 -Total Square (Area) (cm) 11.25 8.60 -Tunneling No No -Undermining/Tunneling No No -Circular Undermining No No -Wound/Ulcer Outcome Not Healed Healed- Surgical Closure -Ulcer Cleansing Rinsed/ Irrigated with Saline -Foul Odor after Cleansing No No -Bioengineered Tissue No No -Bleeding Controlled with Pressure Pressure -Offloading No -Treatment Response Procedure Procedure Tolerated Well Tolerated Well -Debridement - Subq, 1st 20sq cm Yes Yes -Debridement, SubQ, ea addt'l 20sq cm 1 or part thereof #7 RLE Ant Cluster -Time 09:51 08:50 -Correct Patient Yes Yes -Correct Side, Site, Position Yes Yes -Correct Procedure Yes Yes -Procedure Performed Yes Yes -Type of Procedure Debridement Debridement -Clinical Debridement Subcutaneous Subcutaneous -Tissue Removed Subcutaneous Subcutaneous -Post Debridement (cm) - Length 5.0 4.5 -Post Debridement (cm) - Width 3.0 2.0 -Post Debridement (cm) - Depth 0.1 0.1 -Total Square (Post) (cm) 15.00 9.00 -Area of Debridement (cm) - Length 5.0 4.5 -Area of Debridement (cm) - Width 3.0 2.0 -Total Square (Area) (cm) 15.00 9.00 -Tunneling No No -Undermining/Tunneling No No -Circular Undermining No No -Wound/Ulcer Outcome Not Healed Not Healed -Ulcer Cleansing Rinsed/ Rinsed/ Irrigated with Irrigated with Saline Saline -Foul Odor after Cleansing No No -Bioengineered Tissue No No -Bleeding Controlled with Pressure Pressure -Offloading No -Treatment Response Procedure Procedure Tolerated Well Tolerated Well -Debridement - Subq, 1st 20sq cm No Yes Pain Scale: 0-10 Numeric Is Patient Pain Free? Yes Yes WC - Nurse 3 - General Ulcer D/C NN Start: 04/05/21 14:08 Freq: Status: Active Protocol: Activity Type Activity Date Activity User E-Sign Co-Sign Detail Recorded Client Recorded Date Recorded By Document 04/05/21 14:08 [facility] [id number] 04/05/21 14:11 BMF Document 04/08/21 10:12 JF [id number] 04/08/21 10:13 JF Document 04/12/21 14:06 DL [id number] 04/12/21 14:16 DL Document 04/16/21 09:32 ML [id number] 04/16/21 09:33 ML 04/05/21 04/08/21 04/12/21 14:08 10:12 14:06 Vital Signs Temperature (97.8 F-99.1 F) 96 F L 96.5 F L Temperature Source Temporal Temporal Pulse Rate (60-100) 66 70 Pulse Location Monitor Monitor Respiratory Rate (12-18) 16 22 H Respiratory rate source Observation Observation Oxygen Delivery Method Room Air Blood Pressure (90/60-120/80) 177/65 H 172/95 H Blood Pressure Mean (mm Hg) 102 120 Source Monitor Monitor Position Sitting Blood Pressure Location Left Arm Pain Scale: 0-10 Numeric Is Patient Pain Free? Yes Yes Yes Wound Care Nurse 3 #8 RLE Post -Ulcer Cleansing Soap and Water Rinsed/ Soap and Water Irrigated with Saline -Foul Odor after Cleansing No No No -Primary Dressing Applied Aquacel AG 4x4, Aquacel AG 4x4, Aquacel AG 2x2, NonAdherent NonAdherent NonAdherent Contact Layer Contact Layer Contact Layer -Other Dressing drsg per ak formula mixer drsg per dl formula mixer -Primary Dressing Covered/Secured with Other Other -Other Covering abd abd pad abd -Aquacel AG 4x4 1 1 -Aquacel AG 2x2 1 #7 RLE Ant Cluster -Ulcer Cleansing Soap and Water Rinsed/ Soap and Water Irrigated with Saline -Foul Odor after Cleansing No No No -Primary Dressing Applied Aquacel AG 4x4, Aquacel AG 4x4, Aquacel AG 2x2, NonAdherent NonAdherent NonAdherent Contact Layer Contact Layer Contact Layer -Other Dressing drsg per ak formula mixer drsg per dl formula mixer -Primary Dressing Covered/Secured with Other Other -Other Covering abd abd pad abd -Aquacel AG 4x4 0 0 -Aquacel AG 2x2 0 Right -Multi-Layered Wrap Application Multi-Layer Multi-Layer Multi-Layer Comp - Right ($ Comp - Right ($ Comp - Right ($ ) ) ) -Other 3m per dl formula mixer Treatment Response Procedure Procedure Tolerated Well Tolerated Well WC - Visit Discharge Discharge Condition Stable Stable Stable Ambulatory Status Ambulatory,Cane Ambulatory Ambulatory,Cane Transportation Private Auto Private Auto Medication Reconcilliation completed & Yes provided to patient/care provider Clinical Summary of Care Provided Yes 04/16/21 09:32 Vital Signs Temperature (97.8 F-99.1 F) Temperature Source Pulse Rate (60-100) Pulse Location Respiratory Rate (12-18) Respiratory rate source Oxygen Delivery Method Blood Pressure (90/60-120/80) Blood Pressure Mean (mm Hg) Source Position Blood Pressure Location Pain Scale: 0-10 Numeric Is Patient Pain Free? Yes Wound Care Nurse 3 #8 RLE Post -Ulcer Cleansing Rinsed/ Irrigated with Saline -Foul Odor after Cleansing No -Primary Dressing Applied Aquacel AG 4x4 -Other Dressing ABD -Primary Dressing Covered/Secured with -Other Covering -Aquacel AG 4x4 1 -Aquacel AG 2x2 #7 RLE Ant Cluster -Ulcer Cleansing Rinsed/ Irrigated with Saline -Foul Odor after Cleansing No -Primary Dressing Applied Aquacel AG 4x4 -Other Dressing ABD -Primary Dressing Covered/Secured with -Other Covering -Aquacel AG 4x4 0 -Aquacel AG 2x2 Right -Multi-Layered Wrap Application Unna Boot - Right ($) -Other Treatment Response WC - Visit Discharge Discharge Condition Ambulatory Status Transportation Medication Reconcilliation completed & provided to patient/care provider Clinical Summary of Care Provided Additional Wound Wound debrided: Posterior RLE Laterality: Right Type of Debridement: Excisional debridement Anesthesia Used: 4% Lidocaine Solution and Cetacaine Depth: in the subcutaneous layer Percentage of wound debrided: 100 Instrument Used: 7mm curette Tissue Removed: Slough and devitalized tissue Severity: Fat Layer Exposed Amount of bleeding with debridement: Mild Bleeding Controlled with: Pressure Patient tolerated procedure: Patient tolerated procedure well Assessment/Plan Assessment/Plan (1) Ulcer of right lower extremity with fat layer exposed: CODE(S): L97.912 - Non-pressure chronic ulcer of unspecified part of right lower leg with fat layer exposed (2) Venous ulcer of right leg: CODE(S): I83.019 - Varicose veins of right lower extremity with ulcer of unspecified site; L97.919 - Non-pressure chronic ulcer of unspecified part of right lower leg with unspecified severity (3) Nonhealing ulcer of right lower extremity: CODE(S): L97.919 - Non-pressure chronic ulcer of unspecified part of right lower leg with unspecified severity QUALIFIERS: Non-pressure ulcer stage: with fat layer exposed Qualified Code(s): L97.912 - Non-pressure chronic ulcer of unspecified part of right lower leg with fat layer exposed (4) Venous insufficiency: (5) Lymphedema: CODE(S): I89.0 - Lymphedema, not elsewhere classified (6) Morbid obesity: CODE(S): E66.01 - Morbid (severe) obesity due to excess calories (7) Excoriation of right lower leg: CODE(S): S80.811A - Abrasion, right lower leg, initial encounter QUALIFIERS: Encounter type: initial encounter Qualified Code(s): S80.811A - Abrasion, right lower leg, initial encounter (8) Intertrigo: CODE(S): L30.4 - Erythema intertrigo PLAN: Excisional debridement was performed today as annotated above. The patient's right lower extremity swelling and drainage have improved with the use of compression (Unna boots and 3M wraps). Aquacel Ag applied to the ulcers of the right lower extremity. Given the improvement in the patient's excoriation and rash of her right lower extremity, we will discontinue clotrimazole/betamethasone ointment at this time. Unna boot applied to the right lower extremity. Patient was instructed to keep her right lower extremity wraps clean and dry. If anytime the wrap becomes too tight or uncomfortable, she is to elevate her leg. If she experiences numbness, tingling, or discoloration of the toes that does not subside with leg elevation, she is to notify the wound healing center and remove the wrap. Compression: Unna boot to right lower extremity. Lymphedema pumps should be utilized for 1 hour 3 times per day. If this is not well-tolerated, the patient should continue to use the pumps as long and as frequently as possible, working toward this goal. Off-loading: The patient has been instructed to avoid pressure and friction on the affected areas. Reposition every 2 hours at minimum. Avoid prolonged standing and/or dangling of legs. When seated, feet should be elevated at chest level. Frequent ambulation is encouraged. Diet: Patient encouraged to increase protein intake while taking caution to avoid high carbohydrate and/or sugar intake. Labs/cultures/imaging: The patient's wound cultures from 02/05/2021 were positive for 1+ Enterococcus faecalis, and rare MRSA. She was sent to the emergency department for IV antibiotic treatment. She received a dose of IV vancomycin 2000mg and was discharged on 10-day courses of doxycycline and Augmentin, which she has completed. Repeat cultures from 03/12/2021 were negative. Venous and arterial studies were previously ordered in September 2020, though the patient never had these done. These were again ordered in late December 2020, but have not yet been completed. I have advised the patient that this information would be extremely helpful. Given the patient's delayed healing, a wound biopsy was recommended on multiple occasions to evaluate for other potential causes for delayed healing; the patient refused. Follow-up: Consult with lymphedema specialist at [facility] on 01/14/2021 was cancelled by patient due to reported transportation issues. The importance o f this consultation has been discussed at length with the patient. She reports she has rescheduled with the lymphedema specialist for May 2021. Return to clinic on Monday for nurse visit. Return in 1 week for reevaluation. Patient was instructed to return sooner or report to the emergency room should symptoms worsen, or new symptoms arise. Note: [employer] speech recognition videographer software was used to create portions of this document. Sound-alike and misspelled words, as well as other videographer errors may be contained in the documentation.
[2021-04-20 13:43] VITALS: BP 160/87; PULSE 92; RESP 18; TEMP 36.1; BMI 49.0
[2021-04-23 08:28] VITALS: BP 167/84; PULSE 68; RESP 16; TEMP 35.8; BMI 49.0
--- NOTE | 2021-04-23 09:34 | PN.PCM_ITS ---
History of Present Illness Date of Service: 04/23/21 Chief Complaint: Ulcers of right lower extremity History of Wound: [facility] for evaluation and treatment of bilateral lower leg ulcers. The patient is [facility] treatment of prior lower extremity ulcers. She has a PMH significant for chronic lymphedema, venous insufficiency, atrial fibrillation (on Eliquis), morbid obesity, and hypothyroidism. She reported development of her posterior right lower leg ulcer in April 2019. She initially was using Manuka honey to this ulcer, but then started using Vaseline instead. She reported her anterior right lower extremity ulcer developed in August, and she had been applying Vaseline to this daily. Her anterior left lower extremity ulcer developed approximately 1 week prior to her initial January 2020 appt, and she had been applying Vaseline to this daily as well. She notes that approximately 4 to 6 weeks prior, the ulcer on her posterior right lower leg began increasing in soreness. She has lymphedema pumps at home, but had not been using these due to reported pain with use which is related to her ulcers. She does not use compression at home. She reports frequent dangling of her legs while seated at her computer for work. She does not frequently elevate her feet when seated. The patient denied any fever, chills, nausea, vomiting, or diarrhea on initial evaluation. She denied any increasing redness or swelling of the affected area at that time as well. She did note foul-smelling drainage from her right lower extremity. She had not been on any recent antibiotics prior to evaluation. She reported having lab work done approximately 6 weeks prior; these records were requested for review multiple times but never obtained. Lab work was ordered and completed in February 2020 and was significant for the following: CBCD: RBC 3.83 (L), hemoglobin 11.3 (L), hematocrit 34.8 (L), platelets 143 (L) ESR: 93 (H) CMP: Albumin 3.0 (L) CRP: 111 (H) Prealbumin 18.6 (L) She had lower extremity arterial studies completed 05/16/16 which showed relatively normal arterial perfusion to ankle level bilaterally. Triphasic waveforms were noted at ankle level bilaterally. Resting ankle-brachial indices were bilaterally normal. The right digital-brachial index is normal, consistent with normal arterial perfusion at distal, small-vessel level in the right lower extremity. The left digital-brachial index is mildly diminished, suggesting the presence of mild, distal, small-vessel arterial occlusive disease in the left lower extremity. Venous and arterial studies were ordered on 09/11/2020, and the patient was scheduled for an appointment in September for these tests. However the tests were never completed. The patient has continually expressed reluctance regarding wound work-up, and noncompliance with orders. Wound cultures collected on 01/03/2020 were positive for 3+ Aeromonas hydrophilia/caviae, 2+ Citrobacter braakii, 1+ Proteus mirabilis, rare Staphylococus aureus, anaerobic cocci, actinomyces odontolyticus, Bacteroides fragilis; beta-lactamase positive. She completed courses of Levaquin and Augmentin. Weeks later, she developed redness and warmth of a localized lymphedema mass of her right medial thigh; this resolved following a 14-day course of Levaquin and Augmentin. She has continued to have fluctuating redness and warmth of this right medial thigh lymphedema mass. She has completed several courses of antibiotics. Keflex and Levaquin have been of benefit. Doxycycline was not felt to be of significant benefit. A referral to a lymphedema specialist at the [facility] was made, and the importance of scheduling this appointment was discussed with the patient. She has not yet scheduled this appointment. Several conversations have been had with the patient regarding her need for compression and lymphedema management in order for her wounds to heal. She refuses compression. She is noncompliant with elevating her legs. She states she is unable to use her lymphedema pumps at this time due to the size of her legs. Since January 2020, several wound care treatments have been utilized, including Aquacel, Aquacel Ag, Devika. She has completed several applications of advanced skin substitutes (Apligraf, Puraply, and Nushield). Progress of Wound: Patient has had worsening of her wound size and appearance in recent weeks. She has had copious amounts of clear drainage from her right lower extremity, particularly from the anterior RLE. She has severe excoriation of the anterior RLE, as well as new areas of ulceration. She reports she has been changing her super sorb dressings approximately 4 times daily, and they have been saturated when changed. She is using Aquacel Ag to her right lower extremity anterior and posterior ulcers. She again states that she has not been using her lymphedema pumps often, but has been trying to use them more. She does not elevate her leg regularly. She does not use compression. She has not rescheduled her appointment with the lymphedema specialist at the [facility]. She expresses reluctance about lymphedema surgery, stating she knows people who have had surgery and has had numerous complications, as well as healthcare providers that recommend exhausting conservative treatment efforts prior to consideration of surgery. The patient's wound cultures from 02/05/2021 were positive for 1+ Enterococcus faecalis, and rare MRSA. She was sent to the emergency department for IV antibiotic treatment. She received a dose of IV vancomycin 2000mg and was discharged on 10-day courses of doxycycline and Augmentin, which she has completed. Hospital labs were as follows: CBCD: Unremarkable CMP: Unremarkable Lactic acid: Normal INR: Normal The patient was seen by Dr. Desai on 02/16/2021 for [facility]. Aquacel Ag was continued, and the patient was started on Unna boots for compression and treatment of right lower extremity excoriation. Progress of Wound: The patient continues to be compliant with the use of compression (now using Unna boot), and is tolerating this well. I am very pleased with her compliance at this time. She has had a significant reduction in her right lower extremity swelling. The excoriation and drainage of the right lower extremity has significantly improved with the use of compression. Her periulcer excoriation also significantly benefited from the use of clotrimazole betamethasone ointment. Her wounds are improved in size and appearance again today. No purulent or malodorous drainage from her wounds is noted. Wound cultures from 03/12/2021 were negative for aerobic and anaerobic bacterial growth. She denies fevers, poor appetite, or generalized malaise. Objective Data Objective Data Vital Signs: Vital Signs Temp Pulse Resp BP 96.4 F L 68 16 167/84 H 04/23/21 08:28 04/23/21 08:28 04/23/21 08:28 04/23/21 08:28 Oxygen Delivery Method Room Air Body Mass Index (BMI) 49.0 Charges/Coding Procedures Integumentary 111xxx-113xx: 17176 Shante subq tissue 20 sq cm/< Physical Exam Const alert and no apparent distress General Appearance: cooperative, comfortable and well kempt Nutritional Appearance: morbidly obese HEENT Head and Scalp: normocephalic and atraumatic Neck supple Lymph Lymphatic: lymphedema severe (worse in RLE) Resp normal respiratory effort Cardio Peripheral Pulses: dorsalis pedis pulses present right 2+ Extremity normal capillary refill and no joint enlargement General Extremity: edema right lower extremity mild; Negative for clubbing or cyanosis Skin Rashes: rashes noted distal RLE Narrative: Right lower extremity erythema and excoriation is improved, though still present to a lesser degree excoriation red dry moderate Wounds: wounds noted drainage serous, No malodorous, no odor and surrounding erythema Wound Narrative: No active drainage from her distal RLE. No purulent/malodorous drainage noted. Anterior RLE ulcer cluster with moderate amount of slough and devitalized tissue. Subcutaneous layer exposed. No tunneling, undermining, or probing to bone. No periulcer warmth. Periulcer erythema, warmth, and excoriation significantly improved. RLE posterior ulcer with moderate amount of slough and devitalized tissue present. Mild periulcer erythema present. No periulcer warmth. No tunneling, undermining, or probing to bone. Neuro oriented x3, moves all extremities and no focal motor deficits Psych mental status grossly normal, cooperative and affect normal Debridement Note Debridement Note Wound debrided: Anterior RLE ulcer cluster Laterality: Right Type of Debridement: Excisional debridement Anesthesia Used: 5% Lidocaine Gel and Cetacaine Depth: in the subcutaneous layer Percentage of wound debrided: 100 Instrument Used: 5mm curette Tissue Removed: Slough and devitalized tissue Severity: Fat Layer Exposed Bleeding Controlled with: Pressure Patient tolerated procedure: Patient tolerated procedure well Post-Debridement Measurements and Additional Note: Post-Debridement Measurements/Treatment WC - Nurse 1 - General Ulcer Assessment Start: 04/05/21 14:08 Freq: Status: Active Protocol: SAL Activity Type Activity Date Activity User E-Sign Co-Sign Detail Recorded Client Recorded Date Recorded By Document 04/05/21 14:08 [facility] [id number] 04/05/21 14:11 BM Document 04/08/21 09:36 DL [id number] 04/08/21 09:43 DL Document 04/12/21 14:06 DL [id number] 04/12/21 14:16 DL Document 04/16/21 08:32 AK [id number] 04/16/21 08:35 AK Document 04/20/21 13:43 [facility] [id number] 04/20/21 13:52 BMF Document 04/23/21 08:28 JF [id number] 04/23/21 08:35 JF 04/05/21 04/08/21 04/12/21 14:08 09:36 14:06 - Today's Visit Information Type of service Follow-up Visit Follow-up Visit Nurse-only (Physician/DISHROOM ATTENDANT (Physician/DISHROOM ATTENDANT Visit ) ) Arrival Mode Ambulatory,Cane Ambulatory Ambulatory Transfer Assistance None None None Patient Identification Verified (Name & Yes Yes Yes ) Patient Requires Transmission-Based No No Precautions Safety Precautions Height and Weight Body Mass Index (BMI) 49.0 49.0 49.0 BMI Classification Obese Obese Obese Vital Signs Temperature (97.8 F-99.1 F) 96 F L 97.6 F L 96.5 F L Temperature Source Temporal Temporal Temporal Pulse Rate (60-100) 66 74 70 Pulse Location Monitor Monitor Monitor Respiratory Rate (12-18) 16 20 H 22 H Respiratory rate source Observation Observation Oxygen Delivery Method Room Air Blood Pressure (90/60-120/80) 177/65 H 141/67 H 172/95 H Blood Pressure Mean (mm Hg) 102 91 120 Source Monitor Monitor Monitor Position Sitting Blood Pressure Location Left Arm History Since Last Visit- (Skip if this is Patient's initial visit) Have you changed medications since your No No No last visit? Any new allergies or adverse reactions No No No Had a fall/change in ADL's that may No No No increase risk of falls Signs or symptoms of abuse and/or No No No neglect since last visit Have you been in the hospital since your No No last visit? Has dressing in place as prescribed Yes Yes Yes Has compression in place as prescribed Yes Yes Has offloadiing in place as prescribed N/A N/A N/A Experienced any changes in pain level or No No No management Left Footwear Regular Shoe Regular Shoe Right Footwear Regular Shoe Regular Shoe Pain Scale: 0-10 Numeric Is Patient Pain Free? Yes Yes Yes 04/16/21 04/20/21 04/23/21 08:32 13:43 08:28 - Today's Visit Information Type of service Follow-up Visit Nurse-only Follow-up Visit (Physician/DISHROOM ATTENDANT Visit (Physician/DISHROOM ATTENDANT ) ) Arrival Mode Ambulatory,Cane Ambulatory,Cane Ambulatory Transfer Assistance None Patient Identification Verified (Name & Yes Yes Yes ) Patient Requires Transmission-Based No No No Precautions Safety Precautions NA Height and Weight Body Mass Index (BMI) 49.0 49.0 49.0 BMI Classification Obese Obese Obese Vital Signs Temperature (97.8 F-99.1 F) 96.1 F L 97 F L 96.4 F L Temperature Source Temporal Temporal Temporal Pulse Rate (60-100) 84 92 68 Pulse Location Monitor Monitor Monitor Respiratory Rate (12-18) 18 16 Respiratory rate source Observation Observation Oxygen Delivery Method Room Air Blood Pressure (90/60-120/80) 135/93 H 160/87 H 167/84 H Blood Pressure Mean (mm Hg) 107 111 111 Source Monitor Monitor Monitor Position Sitting Semi-Fowlers Blood Pressure Location Left Forearm Right Forearm History Since Last Visit- (Skip if this is Patient's initial visit) Have you changed medications since your No No No last visit? Any new allergies or adverse reactions No No No Had a fall/change in ADL's that may No No No increase risk of falls Signs or symptoms of abuse and/or No No No neglect since last visit Have you been in the hospital since your No No No last visit? Has dressing in place as prescribed Yes Yes Yes Has compression in place as prescribed Yes Yes Yes Has offloadiing in place as prescribed N/A N/A N/A Experienced any changes in pain level or No No No management Left Footwear Regular Shoe Regular Shoe Regular Shoe Right Footwear Regular Shoe Regular Shoe Regular Shoe Pain Scale: 0-10 Numeric Is Patient Pain Free? Yes Yes Yes - Nurse 1 - General Ulcer Measurement Start: 04/05/21 14:08 Freq: Status: Active Protocol: Activity Type Activity Date Activity User E-Sign Co-Sign Detail Recorded Client Recorded Date Recorded By Document 04/05/21 14:08 [facility] [id number] 04/05/21 14:11 BMF Document 04/08/21 09:36 DL [id number] 04/08/21 09:43 DL Document 01/14/22 08:32 AK [id number] 04/16/21 08:35 AK Document 04/20/21 13:43 [facility] [id number] 04/20/21 13:52 BM Document 04/23/21 08:28 [id number] 04/23/21 08:35 JF 04/05/21 04/08/21 04/16/21 14:08 09:36 08:32 #8 RLE Post -Combined with other wound No -Current Size (cm) - Length 4.6 3.7 -Current Size (cm) - Width 1.9 2.3 -Current Size (cm) - Depth 0.2 0.2 -Total Square Cm 8.74 8.51 -Photo Taken No No -Epithelialization None Present -Tunneling No -Undermining/Tunneling No -Circular Undermining No -Exudate Amt Medium Medium -Exudate Type Serosanguineous Serosanguineous -Wound Margin Distinct, Distinct, Outline Outline Attached Attached -Granulation Amt Large (67-100%) None Present (0 %) -Granulation Quality Red -Slough/Fibrin Yes -Necrosis Amt Small (1-33%) Medium (34-66%) -Necrotic Tissue Type Adherent Slough Adherent Slough -Structure Exposed N/A N/A -Texture (Irene-wound Skin Appearance) Excoriation, No Abnormality, Scarring,Rash Assessed -Moisture (Irene-wound Skin Appearance) Weeping Assessed, Weeping -Color (Irene-wound Skin Appearance) Erythema No Abnormality, Assessed -Temperature (Irene-wound Skin No Abnormality No Abnormality Appearance) (Pt Warm) (Pt Warm) -Tenderness on Palpation (Irene-wound No No Skin Appearance) -Ulcer Cleansing Soap and Water Soap and Water -Foul Odor after Cleansing No No -Anesthetic Used 4% Lidocaine 4% Lidocaine Solution Solution #7 RLE Ant Cluster -Combined with other wound No -Current Size (cm) - Length 2.2 7 -Current Size (cm) - Width 4 8 -Current Size (cm) - Depth 0.1 0.1 -Total Square Cm 8.8 56 -Photo Taken No No -Epithelialization -Tunneling No -Undermining/Tunneling No -Circular Undermining No -Change in Wound Grade/Stage No -Exudate Amt Medium None Present -Exudate Type Serosanguineous -Wound Margin Indistinct, Non -Visible -Granulation Amt Medium (34-66%) None Present (0 %) -Granulation Quality Red N/A -Slough/Fibrin No -Necrosis Amt Medium (34-66%) None Present (0 %) -Necrotic Tissue Type Adherent Slough -Structure Exposed N/A N/A -Texture (Irene-wound Skin Appearance) Excoriation, Assessed, Scarring,Rash Scarring -Moisture (Irene-wound Skin Appearance) Weeping No Abnormality, Assessed -Color (Irene-wound Skin Appearance) Erythema No Abnormality, Assessed -Temperature (Irene-wound Skin No Abnormality No Abnormality Appearance) (Pt Warm) (Pt Warm) -Tenderness on Palpation (Irene-wound No No Skin Appearance) -Ulcer Cleansing Soap and Water Soap and Water -Foul Odor after Cleansing No -Anesthetic Used 4% Lidocaine 4% Lidocaine Solution Solution Wound Center Nurse 1 Lower Limb Edema Present Yes Right Calf (cm) 64.5 66.2 66 Right Ankle (cm) 31 29 30 04/20/21 04/23/21 13:43 08:28 #8 RLE Post -Combined with other wound No -Current Size (cm) - Length 3.8 -Current Size (cm) - Width 1.5 -Current Size (cm) - Depth 0.2 -Total Square Cm 5.70 -Photo Taken No -Epithelialization Small 1-33% -Tunneling No -Undermining/Tunneling No -Circular Undermining No -Exudate Amt Medium -Exudate Type Serosanguineous -Wound Margin Flat & Intact -Granulation Amt Medium (34-66%) -Granulation Quality Red -Slough/Fibrin Yes -Necrosis Amt Medium (34-66%) -Necrotic Tissue Type Adherent Slough -Structure Exposed N/A -Texture (Irene-wound Skin Appearance) Assessed, Localized Edema -Moisture (Irene-wound Skin Appearance) Assessed,Dry/ Scaly -Color (Irene-wound Skin Appearance) Assessed -Temperature (Irene-wound Skin No Abnormality Appearance) (Pt Warm) -Tenderness on Palpation (Irene-wound No Skin Appearance) -Ulcer Cleansing Wound Cleanser -Foul Odor after Cleansing No -Anesthetic Used 4% Lidocaine Solution #7 RLE Ant Cluster -Combined with other wound No -Current Size (cm) - Length 1.0 -Current Size (cm) - Width 0.5 -Current Size (cm) - Depth 0.1 -Total Square Cm 0.50 -Photo Taken No -Epithelialization Small 1-33% -Tunneling No -Undermining/Tunneling No -Circular Undermining No -Change in Wound Grade/Stage -Exudate Amt Medium -Exudate Type Serosanguineous -Wound Margin Flat & Intact -Granulation Amt Medium (34-66%) -Granulation Quality Red -Slough/Fibrin Yes -Necrosis Amt Small (1-33%) -Necrotic Tissue Type Adherent Slough -Structure Exposed N/A -Texture (Irene-wound Skin Appearance) Assessed, Fluctuance, Localized Edema -Moisture (Irene-wound Skin Appearance) Assessed,Dry/ Scaly -Color (Irene-wound Skin Appearance) Assessed -Temperature (Irene-wound Skin No Abnormality Appearance) (Pt Warm) -Tenderness on Palpation (Irene-wound No Skin Appearance) -Ulcer Cleansing Wound Cleanser -Foul Odor after Cleansing No -Anesthetic Used 4% Lidocaine Solution Wound Center Nurse 1 Lower Limb Edema Present Yes Yes Right Calf (cm) 66.5 65 Right Ankle (cm) 31.5 29.8 WC - Nurse 2 - General Ulcer CM Notes Start: 04/05/21 14:08 Freq: Status: Active Protocol: Activity Type Activity Date Activity User E-Sign Co-Sign Detail Recorded Client Recorded Date Recorded By Document 04/08/21 09:51 MW [id number] 04/08/21 09:57 MW Document 04/16/21 13:02 PL [id number] 04/16/21 13:04 PL Edit Result 04/16/21 13:02 PL (1) [id number] 04/19/21 12:39 PL (1) #7 RLE Ant Cluster - Debridement - Subq, 1st 20sq cm Yes => No 04/08/21 04/16/21 09:51 13:02 Wound Center Nurse 2 #8 RLE Post -Time 09:51 08:50 -Correct Patient Yes Yes -Correct Side, Site, Position Yes Yes -Correct Procedure Yes Yes -Procedure Performed Yes Yes -Type of Procedure Debridement Debridement -Clinical Debridement Subcutaneous Subcutaneous -Tissue Removed Subcutaneous Subcutaneous -Post Debridement (cm) - Length 4.5 4.3 -Post Debridement (cm) - Width 2.5 2.0 -Post Debridement (cm) - Depth 0.2 0.2 -Total Square (Post) (cm) 11.25 8.60 -Area of Debridement (cm) - Length 4.5 4.3 -Area of Debridement (cm) - Width 2.5 2.0 -Total Square (Area) (cm) 11.25 8.60 -Tunneling No No -Undermining/Tunneling No No -Circular Undermining No No -Wound/Ulcer Outcome Not Healed Healed- Surgical Closure -Ulcer Cleansing Rinsed/ Irrigated with Saline -Foul Odor after Cleansing No No -Bioengineered Tissue No No -Bleeding Controlled with Pressure Pressure -Offloading No -Treatment Response Procedure Procedure Tolerated Well Tolerated Well -Debridement - Subq, 1st 20sq cm Yes Yes -Debridement, SubQ, ea addt'l 20sq cm 1 or part thereof #7 RLE Ant Cluster -Time 09:51 08:50 -Correct Patient Yes Yes -Correct Side, Site, Position Yes Yes -Correct Procedure Yes Yes -Procedure Performed Yes Yes -Type of Procedure Debridement Debridement -Clinical Debridement Subcutaneous Subcutaneous -Tissue Removed Subcutaneous Subcutaneous -Post Debridement (cm) - Length 5.0 4.5 -Post Debridement (cm) - Width 3.0 2.0 -Post Debridement (cm) - Depth 0.1 0.1 -Total Square (Post) (cm) 15.00 9.00 -Area of Debridement (cm) - Length 5.0 4.5 -Area of Debridement (cm) - Width 3.0 2.0 -Total Square (Area) (cm) 15.00 9.00 -Tunneling No No -Undermining/Tunneling No No -Circular Undermining No No -Wound/Ulcer Outcome Not Healed Not Healed -Ulcer Cleansing Rinsed/ Rinsed/ Irrigated with Irrigated with Saline Saline -Foul Odor after Cleansing No No -Bioengineered Tissue No No -Bleeding Controlled with Pressure Pressure -Offloading No -Treatment Response Procedure Procedure Tolerated Well Tolerated Well -Debridement - Subq, 1st 20sq cm No No Pain Scale: 0-10 Numeric Is Patient Pain Free? Yes Yes WC - Nurse 3 - General Ulcer D/C NN Start: 04/05/21 14:08 Freq: Status: Active Protocol: Activity Type Activity Date Activity User E-Sign Co-Sign Detail Recorded Client Recorded Date Recorded By Document 04/05/21 14:08 [facility] [id number] 04/05/21 14:11 BMF Document 04/08/21 10:12 JF [id number] 04/08/21 10:13 JF Document 04/12/21 14:06 DL [id number] 04/12/21 14:16 DL Document 04/16/21 09:32 ML [id number] 04/16/21 09:33 ML Document 04/20/21 13:43 BM [id number] 04/20/21 13:52 BMF Document 04/23/21 09:00 AK [id number] 04/23/21 09:01 AK 04/05/21 04/08/21 04/12/21 14:08 10:12 14:06 Vital Signs Temperature (97.8 F-99.1 F) 96 F L 96.5 F L Temperature Source Temporal Temporal Pulse Rate (60-100) 66 70 Pulse Location Monitor Monitor Respiratory Rate (12-18) 16 22 H Respiratory rate source Observation Observation Oxygen Delivery Method Room Air Blood Pressure (90/60-120/80) 177/65 H 172/95 H Blood Pressure Mean (mm Hg) 102 120 Source Monitor Monitor Position Sitting Blood Pressure Location Left Arm Pain Scale: 0-10 Numeric Is Patient Pain Free? Yes Yes Yes Wound Care Nurse 3 #8 RLE Post -Ulcer Cleansing Soap and Water Rinsed/ Soap and Water Irrigated with Saline -Foul Odor after Cleansing No No No -Negative Pressure Wound Therapy -Primary Dressing Applied Aquacel AG 4x4, Aquacel AG 4x4, Aquacel AG 2x2, NonAdherent NonAdherent NonAdherent Contact Layer Contact Layer Contact Layer -Other Dressing drsg per ak deputy sheriff/investigator drsg per dl deputy sheriff/investigator -Primary Dressing Covered/Secured with Other Other -Other Covering abd abd pad abd -Aquacel AG 4x4 1 1 -Aquacel AG 2x2 1 #7 RLE Ant Cluster -Ulcer Cleansing Soap and Water Rinsed/ Soap and Water Irrigated with Saline -Foul Odor after Cleansing No No No -Negative Pressure Wound Therapy -Primary Dressing Applied Aquacel AG 4x4, Aquacel AG 4x4, Aquacel AG 2x2, NonAdherent NonAdherent NonAdherent Contact Layer Contact Layer Contact Layer -Other Dressing drsg per ak deputy sheriff/investigator drsg per dl deputy sheriff/investigator -Primary Dressing Covered/Secured with Other Other -Other Covering abd abd pad abd -Aquacel AG 4x4 0 0 -Aquacel AG 2x2 0 Right -Multi-Layered Wrap Application Multi-Layer Multi-Layer Multi-Layer Comp - Right ($ Comp - Right ($ Comp - Right ($ ) ) ) -Compression Wrap -Other 3m per dl deputy sheriff/investigator Treatment Response Procedure Procedure Tolerated Well Tolerated Well WC - Visit Discharge Discharge Condition Stable Stable Stable Ambulatory Status Ambulatory,Cane Ambulatory Ambulatory,Cane Transportation Private Auto Private Auto Medication Reconcilliation completed & Yes provided to patient/care provider Clinical Summary of Care Provided Yes 04/16/21 04/20/21 04/23/21 09:32 13:43 09:00 Vital Signs Temperature (97.8 F-99.1 F) 97 F L Temperature Source Temporal Pulse Rate (60-100) 92 Pulse Location Monitor Respiratory Rate (12-18) 18 Respiratory rate source Observation Oxygen Delivery Method Room Air Blood Pressure (90/60-120/80) 160/87 H Blood Pressure Mean (mm Hg) 111 Source Monitor Position Sitting Blood Pressure Location Left Forearm Pain Scale: 0-10 Numeric Is Patient Pain Free? Yes Yes Yes Wound Care Nurse 3 #8 RLE Post -Ulcer Cleansing Rinsed/ Soap and Water Rinsed/ Irrigated with Irrigated with Saline Saline -Foul Odor after Cleansing No No No -Negative Pressure Wound Therapy N/A -Primary Dressing Applied Aquacel AG 4x4 Aquacel AG 4x4 Aquacel AG 4x4 -Other Dressing ABD unna -Primary Dressing Covered/Secured with Other -Other Covering abd -Aquacel AG 4x4 1 1 1 -Aquacel AG 2x2 #7 RLE Ant Cluster -Ulcer Cleansing Rinsed/ Soap and Water Rinsed/ Irrigated with Irrigated with Saline Saline -Foul Odor after Cleansing No No No -Negative Pressure Wound Therapy N/A -Primary Dressing Applied Aquacel AG 4x4 Aquacel AG 4x4 Aquacel AG 4x4 -Other Dressing ABD unna -Primary Dressing Covered/Secured with Other -Other Covering abd -Aquacel AG 4x4 0 0 0 -Aquacel AG 2x2 Right -Multi-Layered Wrap Application Unna Boot - Unna Boot - Right ($) Right ($) -Compression Wrap Unna Boot ($) ( single) -Other Treatment Response Procedure Tolerated Well WC - Visit Discharge Discharge Condition Stable Stable Ambulatory Status Ambulatory,Cane Ambulatory,Cane Transportation Private Auto Private Auto Medication Reconcilliation completed & No provided to patient/care provider Clinical Summary of Care Provided Yes Additional Wound Wound debrided: Posterior RLE ulcer Laterality: Right Type of Debridement: Excisional debridement Anesthesia Used: 4% Lidocaine Solution and Cetacaine Depth: in the subcutaneous layer Percentage of wound debrided: 100 Instrument Used: 7mm curette Tissue Removed: Slough and devitalized tissue Severity: Fat Layer Exposed Amount of bleeding with debridement: Mild Bleeding Controlled with: Pressure Patient tolerated procedure: Patient tolerated procedure well Assessment/Plan Assessment/Plan (1) Ulcer of right lower extremity with fat layer exposed: CODE(S): L97.912 - Non-pressure chronic ulcer of unspecified part of right lower leg with fat layer exposed (2) Venous ulcer of right leg: CODE(S): I83.019 - Varicose veins of right lower extremity with ulcer of unspecified site; L97.919 - Non-pressure chronic ulcer of unspecified part of right lower leg with unspecified severity (3) Nonhealing ulcer of right lower extremity: CODE(S): L97.919 - Non-pressure chronic ulcer of unspecified part of right lower leg with unspecified severity QUALIFIERS: Non-pressure ulcer stage: with fat layer exposed Qualified Code(s): L97.912 - Non-pressure chronic ulcer of unspecified part of right lower leg with fat layer exposed (4) Venous insufficiency: (5) Lymphedema: CODE(S): I89.0 - Lymphedema, not elsewhere classified (6) Morbid obesity: CODE(S): E66.01 - Morbid (severe) obesity due to excess calories (7) Excoriation of right lower leg: CODE(S): S80.811A - Abrasion, right lower leg, initial encounter QUALIFIERS: Encounter type: initial encounter Qualified Code(s): S80.811A - Abrasion, right lower leg, initial encounter (8) Intertrigo: CODE(S): L30.4 - Erythema intertrigo PLAN: Excisional debridement was performed today as annotated above. The patient's right lower extremity swelling and drainage have improved with the use of compression (Unna boots and 3M wraps). Aquacel Ag applied to the ulcers of the right lower extremity. Given the improvement in the patient's excoriation and rash of her right lower extremity, we will hold clotrimazole/betamethasone ointment at this time. Unna boot applied to the right lower extremity. Patient was instructed to keep her right lower extremity wraps clean and dry. If anytime the wrap becomes too tight or uncomfortable, she is to elevate her leg. If she experiences numbness, tingling, or discoloration of the toes that does not subside with leg elevation, she is to notify the wound healing center and remove the wrap. Compression: Unna boot to right lower extremity. Lymphedema pumps should be utilized for 1 hour 3 times per day. If this is not well-tolerated, the patient should continue to use the pumps as long and as frequently as possible, working toward this goal. Off-loading: The patient has been instructed to avoid pressure and friction on the affected areas. Reposition every 2 hours at minimum. Avoid prolonged standing and/or dangling of legs. When seated, feet should be elevated at chest level. Frequent ambulation is encouraged. Diet: Patient encouraged to increase protein intake while taking caution to avoid high carbohydrate and/or sugar intake. Labs/cultures/imaging: The patient's wound cultures from 02/05/2021 were positive for 1+ Enterococcus faecalis, and rare MRSA. She was sent to the emergency department for IV antibiotic treatment. She received a dose of IV vancomycin 2000mg and was discharged on 10-day courses of doxycycline and Augmentin, which she has completed. Repeat cultures from 03/12/2021 were negative. Venous and arterial studies were previously ordered in September 2020, though the patient never had these done. These were again ordered in late December 2020, but have not yet been completed. I have advised the patient that this information would be extremely helpful. Given the patient's delayed healing, a wound biopsy was recommended on multiple occasions to evaluate for other potential causes for delayed healing; the patient refused. Follow-up: Consult with lymphedema specialist at [facility] on 01/14/2021 was cancelled by patient due to reported transportation issues. The importance of this consultation has been discussed at length with the patient. She reports she has rescheduled with the lymphedema specialist for May 2021. Return to clinic on Monday for nurse visit. Return in 1 week for reevaluation. Patient was instructed to return sooner or report to the emergency room should symptoms worsen, or new symptoms arise. Note: [employer] speech recognition local sales manager software was used to create portions of this document. Sound-alike and misspelled words, as well as other local sales manager errors may be contained in the documentation.
[2021-04-27 13:26] VITALS: BP 158/70; PULSE 65; RESP 16; TEMP 35.8; BMI 49.0
[2021-04-30 08:27] VITALS: BP 146/54; PULSE 80; TEMP 35.7; BMI 49.0
--- NOTE | 2021-04-30 09:04 | PCM.WC.PN ---
History of Present Illness Date of Service: 04/30/21 Chief Complaint: Ulcers of right lower extremity History of Wound: [facility] for evaluation and treatment of bilateral lower leg ulcers. The patient is [facility] from treatment of prior lower extremity ulcers. She has a PMH significant for chronic lymphedema, venous insufficiency, atrial fibrillation (on Eliquis), morbid obesity, and hypothyroidism. She reported development of her posterior right lower leg ulcer in April 2019. She initially was using Manuka honey to this ulcer, but then started using Vaseline instead. She reported her anterior right lower extremity ulcer developed in August, and she had been applying Vaseline to this daily. Her anterior left lower extremity ulcer developed approximately 1 week prior to her initial January 2020 appt, and she had been applying Vaseline to this daily as well. She notes that approximately 4 to 6 weeks prior, the ulcer on her posterior right lower leg began increasing in soreness. She has lymphedema pumps at home, but had not been using these due to reported pain with use which is related to her ulcers. She does not use compression at home. She reports frequent dangling of her legs while seated at her computer for work. She does not frequently elevate her feet when seated. The patient denied any fever, chills, nausea, vomiting, or diarrhea on initial evaluation. She denied any increasing redness or swelling of the affected area at that time as well. She did note foul-smelling drainage from her right lower extremity. She had not been on any recent antibiotics prior to evaluation. She reported having lab work done approximately 6 weeks prior; these records were requested for review multiple times but never obtained. Lab work was ordered and completed in February 2020 and was significant for the following: CBCD: RBC 3.83 (L), hemoglobin 11.3 (L), hematocrit 34.8 (L), platelets 143 (L) ESR: 93 (H) CMP: Albumin 3.0 (L) CRP: 111 (H) Prealbumin 18.6 (L) She had lower extremity arterial studies completed 05/16/16 which showed relatively normal arterial perfusion to ankle level bilaterally. Triphasic waveforms were noted at ankle level bilaterally. Resting ankle-brachial indices were bilaterally normal. The right digital-brachial index is normal, consistent with normal arterial perfusion at distal, small-vessel level in the right lower extremity. The left digital-brachial index is mildly diminished, suggesting the presence of mild, distal, small-vessel arterial occlusive disease in the left lower extremity. Venous and arterial studies were ordered on 09/11/2020, and the patient was scheduled for an appointment in September for these tests. However the tests were never completed. The patient has continually expressed reluctance regarding wound work-up, and noncompliance with orders. Wound cultures collected on 01/03/2020 were positive for 3+ Aeromonas hydrophilia/caviae, 2+ Citrobacter braakii, 1+ Proteus mirabilis, rare Staphylococus aureus, anaerobic cocci, actinomyces odontolyticus, Bacteroides fragilis; beta-lactamase positive. She completed courses of Levaquin and Augmentin. Weeks later, she developed redness and warmth of a localized lymphedema mass of her right medial thigh; this resolved following a 14-day course of Levaquin and Augmentin. She has continued to have fluctuating redness and warmth of this right medial thigh lymphedema mass. She has completed several courses of antibiotics. Keflex and Levaquin have been of benefit. Doxycycline was not felt to be of significant benefit. A referral to a lymphedema specialist at the [facility] was made, and the importance of scheduling this appointment was discussed with the patient. She has not yet scheduled this appointment. Several conversations have been had with the patient regarding her need for compression and lymphedema management in order for her wounds to heal. She refuses compression. She is noncompliant with elevating her legs. She states she is unable to use her lymphedema pumps at this time due to the size of her legs. Since January 2020, several wound care treatments have been utilized, including Aquacel, Aquacel Ag, Devika. She has completed several applications of advanced skin substitutes (Apligraf, Puraply, and Nushield). Progress of Wound: Patient has had worsening of her wound size and appearance in recent weeks. She has had copious amounts of clear drainage from her right lower extremity, particularly from the anterior RLE. She has severe excoriation of the anterior RLE, as well as new areas of ulceration. She reports she has been changing her super sorb dressings approximately 4 times daily, and they have been saturated when changed. She is using Aquacel Ag to her right lower extremity anterior and posterior ulcers. She again states that she has not been using her lymphedema pumps often, but has been trying to use them more. She does not elevate her leg regularly. She does not use compression. She has not rescheduled her appointment with the lymphedema specialist at the [facility]. She expresses reluctance about lymphedema surgery, stating she knows people who have had surgery and has had numerous complications, as well as healthcare providers that recommend exhausting conservative treatment efforts prior to consideration of surgery. The patient's wound cultures from 02/05/2021 were positive for 1+ Enterococcus faecalis, and rare MRSA. She was sent to the emergency department for IV antibiotic treatment. She received a dose of IV vancomycin 2000mg and was discharged on 10-day courses of doxycycline and Augmentin, which she has completed. Hospital labs were as follows: CBCD: Unremarkable CMP: Unremarkable Lactic acid: Normal INR: Normal The patient was seen by Dr. Desai on 02/16/2021 for [facility]. Aquacel Ag was continued, and the patient was started on Unna boots for compression and treatment of right lower extremity excoriation. Progress of Wound: The patient continues to be compliant with the use of compression (now using Unna boot), and is tolerating this well. I am very pleased with her compliance at this time. She has had a significant reduction in her right lower extremity swelling, and significant improvement of her RLE ulcers. The excoriation and drainage of the right lower extremity has significantly improved with the use of compression. Her periulcer excoriation also significantly benefited from the use of clotrimazole betamethasone ointment. Her wounds are improved in size and appearance again today. No purulent or malodorous drainage from her wounds is noted. She denies fevers, poor appetite, or generalized malaise. Objective Data Objective Data Vital Signs: Vital Signs Temp Pulse Resp BP 96.3 F L 80 16 146/54 H 04/30/21 08:27 04/30/21 08:27 04/27/21 13:26 04/30/21 08:27 Oxygen Delivery Method Room Air Body Mass Index (BMI) 49.0 Charges/Coding Procedures Integumentary 111xxx-113xx: 34222 Shante subq tissue 20 sq cm/< Physical Exam Const alert and no apparent distress General Appearance: cooperative, comfortable and well kempt Nutritional Appearance: morbidly obese HEENT Head and Scalp: normocephalic and atraumatic Neck supple Lymph Lymphatic: lymphedema severe (worse in RLE) Resp normal respiratory effort Cardio Peripheral Pulses: dorsalis pedis pulses present right 2+ Extremity normal capillary refill and no joint enlargement General Extremity: edema right lower extremity mild; Negative for clubbing or cyanosis Skin Rashes: rashes noted distal RLE Narrative: Right lower extremity erythema and excoriation is improved, though still present to a lesser degree excoriation red dry moderate Wounds: wounds noted drainage serous, No malodorous, no odor and surrounding erythema Wound Narrative: No active drainage from her distal RLE. No purulent/malodorous drainage noted. Anterior RLE ulcer with moderate amount of slough and devitalized tissue. Subcutaneous layer exposed. No tunneling, undermining, or probing to bone. No periulcer warmth. Periulcer erythema, warmth, and excoriation significantly improved. RLE posterior ulcer with small amount of slough and devitalized tissue present. Mild periulcer erythema present. No periulcer warmth. No tunneling, undermining, or probing to bone. Intertrigo rash of R popliteal fossa. Neuro oriented x3, moves all extremities and no focal motor deficits Psych mental status grossly normal, cooperative and affect normal Debridement Note Debridement Note Wound debrided: RLE anterior ulcer Laterality: Right Type of Debridement: Excisional debridement Anesthesia Used: Cetacaine Depth: in the subcutaneous layer Percentage of wound debrided: 100 Instrument Used: 3mm curette Tissue Removed: Slough and devitalized tissue Severity: Fat Layer Exposed Amount of bleeding with debridement: Mild Bleeding Controlled with: Pressure Patient tolerated procedure: Patient tolerated procedure well Post-Debridement Measurements and Additional Note: Post-Debridement Measurements/Treatment WC - Nurse 1 - General Ulcer Assessment Start: 04/05/21 14:08 Freq: Status: Active Protocol: SAL Activity Type Activity Date Activity User E-Sign Co-Sign Detail Recorded Client Recorded Date Recorded By Document 04/05/21 14:08 [facility] [id number] 04/05/21 14:11 BMF Document 04/08/21 09:36 DL [id number] 04/08/21 09:43 DL Document 04/12/21 14:06 DL [id number] 04/12/21 14:16 DL Document 04/16/21 08:32 AK [id number] 04/16/21 08:35 AK Document 04/20/21 13:43 BM [id number] 04/20/21 13:52 BMF Document 04/23/21 08:28 JF [id number] 04/23/21 08:35 JF Document 04/27/21 13:26 BMF [id number] 04/27/21 13:28 BMF Document 04/30/21 08:27 AK [id number] 04/30/21 08:35 AK 04/05/21 04/08/21 04/12/21 14:08 09:36 14:06 WC - Today's Visit Information Type of service Follow-up Visit Follow-up Visit Nurse-only (Physician/WAREHOUSE PACKER (Physician/WAREHOUSE PACKER Visit ) ) Arrival Mode Ambulatory,Cane Ambulatory Ambulatory Transfer Assistance None None None Patient Identification Verified (Name & Yes Yes Yes ) Patient Requires Transmission-Based No No Precautions Safety Precautions Height and Weight Body Mass Index (BMI) 49.0 49.0 49.0 BMI Classification Obese Obese Obese Vital Signs Temperature (97.8 F-99.1 F) 96 F L 97.6 F L 96.5 F L Temperature Source Temporal Temporal Temporal Pulse Rate (60-100) 66 74 70 Pulse Location Monitor Monitor Monitor Respiratory Rate (12-18) 16 20 H 22 H Respiratory rate source Observation Observation Oxygen Delivery Method Room Air Blood Pressure (90/60-120/80) 177/65 H 141/67 H 172/95 H Blood Pressure Mean (mm Hg) 102 91 120 Source Monitor Monitor Monitor Position Sitting Blood Pressure Location Left Arm History Since Last Visit- (Skip if this is Patient's initial visit) Have you changed medications since your No No No last visit? Any new allergies or adverse reactions No No No Had a fall/change in ADL's that may No No No increase risk of falls Signs or symptoms of abuse and/or No No No neglect since last visit Have you been in the hospital since your No No last visit? Has dressing in place as prescribed Yes Yes Yes Has compression in place as prescribed Yes Yes Has offloadiing in place as prescribed N/A N/A N/A Experienced any changes in pain level or No No No management Left Footwear Regular Shoe Regular Shoe Right Footwear Regular Shoe Regular Shoe Pain Scale: 0-10 Numeric Is Patient Pain Free? Yes Yes Yes 04/16/21 04/20/21 04/23/21 08:32 13:43 08:28 WC - Today's Visit Information Type of service Follow-up Visit Nurse-only Follow-up Visit (Physician/WAREHOUSE PACKER Visit (Physician/WAREHOUSE PACKER ) ) Arrival Mode Ambulatory,Cane Ambulatory,Cane Ambulatory Transfer Assistance None Patient Identification Verified (Name & Yes Yes Yes ) Patient Requires Transmission-Based No No No Precautions Safety Precautions NA Height and Weight Body Mass Index (BMI) 49.0 49.0 49.0 BMI Classification Obese Obese Obese Vital Signs Temperature (97.8 F-99.1 F) 96.1 F L 97 F L 96.4 F L Temperature Source Temporal Temporal Temporal Pulse Rate (60-100) 84 92 68 Pulse Location Monitor Monitor Monitor Respiratory Rate (12-18) 18 16 Respiratory rate source Observation Observation Oxygen Delivery Method Room Air Blood Pressure (90/60-120/80) 135/93 H 160/87 H 167/84 H Blood Pressure Mean (mm Hg) 107 111 111 Source Monitor Monitor Monitor Position Sitting Semi-Fowlers Blood Pressure Location Left Forearm Right Forearm History Since Last Visit- (Skip if this is Patient's initial visit) Have you changed medications since your No No No last visit? Any new allergies or adverse reactions No No No Had a fall/change in ADL's that may No No No increase risk of falls Signs or symptoms of abuse and/or No No No neglect since last visit Have you been in the hospital since your No No No last visit? Has dressing in place as prescribed Yes Yes Yes Has compression in place as prescribed Yes Yes Yes Has offloadiing in place as prescribed N/A N/A N/A Experienced any changes in pain level or No No No management Left Footwear Regular Shoe Regular Shoe Regular Shoe Right Footwear Regular Shoe Regular Shoe Regular Shoe Pain Scale: 0-10 Numeric Is Patient Pain Free? Yes Yes Yes 04/27/21 04/30/21 13:26 08:27 WC - Today's Visit Information Type of service Nurse-only Follow-up Visit Visit (Physician/WAREHOUSE PACKER ) Arrival Mode Ambulatory,Cane Ambulatory,Cane Transfer Assistance None Patient Identification Verified (Name & Yes Yes ) Patient Requires Transmission-Based No No Precautions Safety Precautions NA Height and Weight Body Mass Index (BMI) 49.0 49.0 BMI Classification Obese Obese Vital Signs Temperature (97.8 F-99.1 F) 96.5 F L 96.3 F L Temperature Source Temporal Temporal Pulse Rate (60-100) 65 80 Pulse Location Monitor Monitor Respiratory Rate (12-18) 16 Respiratory rate source Observation Oxygen Delivery Method Room Air Blood Pressure (90/60-120/80) 158/70 H 146/54 H Blood Pressure Mean (mm Hg) 99 84 Source Monitor Monitor Position Sitting Blood Pressure Location Left Forearm History Since Last Visit- (Skip if this is Patient's initial visit) Have you changed medications since your No No last visit? Any new allergies or adverse reactions No No Had a fall/change in ADL's that may No No increase risk of falls Signs or symptoms of abuse and/or No No neglect since last visit Have you been in the hospital since your No No last visit? Has dressing in place as prescribed Yes Yes Has compression in place as prescribed Yes Yes Has offloadiing in place as prescribed N/A N/A Experienced any changes in pain level or No No management Left Footwear Regular Shoe Regular Shoe Right Footwear Regular Shoe Regular Shoe Pain Scale: 0-10 Numeric Is Patient Pain Free? Yes Yes WC - Nurse 1 - General Ulcer Measurement Start: 04/05/21 14:08 Freq: Status: Active Protocol: Activity Type Activity Date Activity User E-Sign Co-Sign Detail Recorded Client Recorded Date Recorded By Document 04/05/21 14:08 [facility] [id number] 04/05/21 14:11 [facility] Document 04/08/21 09:36 DL [id number] 04/08/21 09:43 DL Document 04/16/21 08:32 AK [id number] 04/16/21 08:35 AK Document 04/20/21 13:43 [facility] [id number] 04/20/21 13:52 [facility] Document 04/23/21 08:28 JF [id number] 04/23/21 08:35 JF Document 04/30/21 08:27 AK [id number] 04/30/21 08:35 AK 04/05/21 04/08/21 04/16/21 14:08 09:36 08:32 #8 RLE Post -Combined with other wound No -Current Size (cm) - Length 4.6 3.7 -Current Size (cm) - Width 1.9 2.3 -Current Size (cm) - Depth 0.2 0.2 -Total Square Cm 8.74 8.51 -Photo Taken No No -Epithelialization None Present -Tunneling No -Undermining/Tunneling No -Circular Undermining No -Exudate Amt Medium Medium -Exudate Type Serosanguineous Serosanguineous -Wound Margin Distinct, Distinct, Outline Outline Attached Attached -Granulation Amt Large (67-100%) None Present (0 %) -Granulation Quality Red -Slough/Fibrin Yes -Necrosis Amt Small (1-33%) Medium (34-66%) -Necrotic Tissue Type Adherent Slough Adherent Slough -Structure Exposed N/A N/A -Texture (Irene-wound Skin Appearance) Excoriation, No Abnormality, Scarring,Rash Assessed -Moisture (Irene-wound Skin Appearance) Weeping Assessed, Weeping -Color (Irene-wound Skin Appearance) Erythema No Abnormality, Assessed -Temperature (Irene-wound Skin No Abnormality No Abnormality Appearance) (Pt Warm) (Pt Warm) -Tenderness on Palpation (Irene-wound No No Skin Appearance) -Ulcer Cleansing Soap and Water Soap and Water -Foul Odor after Cleansing No No -Anesthetic Used 4% Lidocaine 4% Lidocaine Solution Solution #7 RLE Ant Cluster -Combined with other wound No -Current Size (cm) - Length 2.2 7 -Current Size (cm) - Width 4 8 -Current Size (cm) - Depth 0.1 0.1 -Total Square Cm 8.8 56 -Photo Taken No No -Epithelialization -Tunneling No -Undermining/Tunneling No -Circular Undermining No -Change in Wound Grade/Stage No -Exudate Amt Medium None Present -Exudate Type Serosanguineous -Wound Margin Indistinct, Non -Visible -Granulation Amt Medium (34-66%) None Present (0 %) -Granulation Quality Red N/A -Slough/Fibrin No -Necrosis Amt Medium (34-66%) None Present (0 %) -Necrotic Tissue Type Adherent Slough -Structure Exposed N/A N/A -Texture (Irene-wound Skin Appearance) Excoriation, Assessed, Scarring,Rash Scarring -Moisture (Irene-wound Skin Appearance) Weeping No Abnormality, Assessed -Color (Irene-wound Skin Appearance) Erythema No Abnormality, Assessed -Temperature (Irene-wound Skin No Abnormality No Abnormality Appearance) (Pt Warm) (Pt Warm) -Tenderness on Palpation (Irene-wound No No Skin Appearance) -Ulcer Cleansing Soap and Water Soap and Water -Foul Odor after Cleansing No -Anesthetic Used 4% Lidocaine 4% Lidocaine Solution Solution Wound Center Nurse 1 Lower Limb Edema Present Yes Right Calf (cm) 64.5 66.2 66 Right Ankle (cm) 31 29 30 04/20/21 04/23/21 04/30/21 13:43 08:28 08:27 #8 RLE Post -Combined with other wound No -Current Size (cm) - Length 3.8 1 -Current Size (cm) - Width 1.5 4.5 -Current Size (cm) - Depth 0.2 0.2 -Total Square Cm 5.70 4.5 -Photo Taken No No -Epithelialization Small 1-33% -Tunneling No No -Undermining/Tunneling No No -Circular Undermining No No -Exudate Amt Medium Medium -Exudate Type Serosanguineous Serosanguineous -Wound Margin Flat & Intact Distinct, Outline Attached -Granulation Amt Medium (34-66%) -Granulation Quality Red N/A -Slough/Fibrin Yes Yes -Necrosis Amt Medium (34-66%) Medium (34-66%) -Necrotic Tissue Type Adherent Slough Adherent Slough -Structure Exposed N/A N/A -Texture (Irene-wound Skin Appearance) Assessed, Assessed, Localized Edema Scarring -Moisture (Irene-wound Skin Appearance) Assessed,Dry/ No Abnormality, Scaly Assessed -Color (Irene-wound Skin Appearance) Assessed No Abnormality, Assessed -Temperature (Irene-wound Skin No Abnormality No Abnormality Appearance) (Pt Warm) (Pt Warm) -Tenderness on Palpation (Irene-wound No No Skin Appearance) -Ulcer Cleansing Wound Cleanser Rinsed/ Irrigated with Saline -Foul Odor after Cleansing No No -Anesthetic Used 4% Lidocaine 4% Lidocaine Solution Solution #7 RLE Ant Cluster -Combined with other wound No No -Current Size (cm) - Length 1.0 4 -Current Size (cm) - Width 0.5 1 -Current Size (cm) - Depth 0.1 0.1 -Total Square Cm 0.50 4 -Photo Taken No No -Epithelialization Small 1-33% -Tunneling No No -Undermining/Tunneling No No -Circular Undermining No No -Change in Wound Grade/Stage -Exudate Amt Medium Medium -Exudate Type Serosanguineous Serosanguineous -Wound Margin Flat & Intact -Granulation Amt Medium (34-66%) None Present (0 %) -Granulation Quality Red -Slough/Fibrin Yes No -Necrosis Amt Small (1-33%) -Necrotic Tissue Type Adherent Slough -Structure Exposed N/A N/A -Texture (Irene-wound Skin Appearance) Assessed, No Abnormality, Fluctuance, Assessed Localized Edema -Moisture (Irene-wound Skin Appearance) Assessed,Dry/ No Abnormality, Scaly Assessed -Color (Irene-wound Skin Appearance) Assessed No Abnormality, Assessed -Temperature (Irene-wound Skin No Abnormality No Abnormality Appearance) (Pt Warm) (Pt Warm) -Tenderness on Palpation (Irene-wound No No Skin Appearance) -Ulcer Cleansing Wound Cleanser Soap and Water -Foul Odor after Cleansing No No -Anesthetic Used 4% Lidocaine 4% Lidocaine Solution Solution Wound Center Nurse 1 Lower Limb Edema Present Yes Yes Right Calf (cm) 66.5 65 66 Right Ankle (cm) 31.5 29.8 41 WC - Nurse 2 - General Ulcer CM Notes Start: 04/05/21 14:08 Freq: Status: Active Protocol: Activity Type Activity Date Activity User E-Sign Co-Sign Detail Recorded Client Recorded Date Recorded By Document 04/08/21 09:51 MW [id number] 04/08/21 09:57 MW Document 04/16/21 13:02 PL [id number] 04/16/21 13:04 PL Edit Result 04/16/21 13:02 PL (1) [id number] 04/19/21 12:39 PL Document 04/23/21 09:42 PL [id number] 04/23/21 09:44 PL (1) #7 RLE Ant Cluster - Debridement - Subq, 1st 20sq cm Yes => No 04/08/21 04/16/21 04/23/21 09:51 13:02 09:42 Wound Center Nurse 2 #8 RLE Post -Time 09:51 08:50 08:45 -Correct Patient Yes Yes Yes -Correct Side, Site, Position Yes Yes Yes -Correct Procedure Yes Yes Yes -Procedure Performed Yes Yes Yes -Type of Procedure Debridement Debridement Debridement -Clinical Debridement Subcutaneous Subcutaneous Subcutaneous -Tissue Removed Subcutaneous Subcutaneous Subcutaneous -Post Debridement (cm) - Length 4.5 4.3 4.0 -Post Debridement (cm) - Width 2.5 2.0 1.8 -Post Debridement (cm) - Depth 0.2 0.2 0.2 -Total Square (Post) (cm) 11.25 8.60 7.20 -Area of Debridement (cm) - Length 4.5 4.3 4.0 -Area of Debridement (cm) - Width 2.5 2.0 1.8 -Total Square (Area) (cm) 11.25 8.60 7.20 -Tunneling No No No -Undermining/Tunneling No No No -Circular Undermining No No No -Wound/Ulcer Outcome Not Healed Healed- Not Healed Surgical Closure -Ulcer Cleansing Rinsed/ Rinsed/ Irrigated with Irrigated with Saline Saline -Foul Odor after Cleansing No No No -Bioengineered Tissue No No No -Bleeding Controlled with Pressure Pressure Pressure -Offloading No -Treatment Response Procedure Procedure Procedure Tolerated Well Tolerated Well Tolerated Well -Debridement - Subq, 1st 20sq cm Yes Yes Yes -Debridement, SubQ, ea addt'l 20sq cm 1 or part thereof #7 RLE Ant Cluster -Time 09:51 08:50 08:45 -Correct Patient Yes Yes Yes -Correct Side, Site, Position Yes Yes Yes -Correct Procedure Yes Yes Yes -Procedure Performed Yes Yes Yes -Type of Procedure Debridement Debridement Debridement -Clinical Debridement Subcutaneous Subcutaneous Subcutaneous -Tissue Removed Subcutaneous Subcutaneous Subcutaneous -Post Debridement (cm) - Length 5.0 4.5 4.5 -Post Debridement (cm) - Width 3.0 2.0 1.0 -Post Debridement (cm) - Depth 0.1 0.1 0.1 -Total Square (Post) (cm) 15.00 9.00 4.50 -Area of Debridement (cm) - Length 5.0 4.5 4.5 -Area of Debridement (cm) - Width 3.0 2.0 1.0 -Total Square (Area) (cm) 15.00 9.00 4.50 -Tunneling No No No -Undermining/Tunneling No No No -Circular Undermining No No No -Wound/Ulcer Outcome Not Healed Not Healed Not Healed -Ulcer Cleansing Rinsed/ Rinsed/ Rinsed/ Irrigated with Irrigated with Irrigated with Saline Saline Saline -Foul Odor after Cleansing No No No -Bioengineered Tissue No No No -Bleeding Controlled with Pressure Pressure Pressure -Offloading No -Treatment Response Procedure Procedure Procedure Tolerated Well Tolerated Well Tolerated Well -Debridement - Subq, 1st 20sq cm No No No Pain Scale: 0-10 Numeric Is Patient Pain Free? Yes Yes Yes WC - Nurse 3 - General Ulcer D/C NN Start: 04/05/21 14:08 Freq: Status: Active Protocol: Activity Type Activity Date Activity User E-Sign Co-Sign Detail Recorded Client Recorded Date Recorded By Document 04/05/21 14:08 BM [id number] 04/05/21 14:11 BMF Document 04/08/21 10:12 JF [id number] 04/08/21 10:13 JF Document 04/12/21 14:06 DL [id number] 04/12/21 14:16 DL Document 04/16/21 09:32 ML [id number] 04/16/21 09:33 ML Document 04/20/21 13:43 BMF [id number] 04/20/21 13:52 BMF Document 04/23/21 09:00 AK [id number] 04/23/21 09:01 AK Edit Result 04/23/21 09:00 AK (1) [id number] 04/26/21 06:53 PL Document 04/27/21 13:26 BMF [id number] 04/27/21 13:28 BMF (1) Right - Multi-Layered Wrap Application => Unna Boot - Right => ($) 04/05/21 04/08/21 04/12/21 14:08 10:12 14:06 Vital Signs Temperature (97.8 F-99.1 F) 96 F L 96.5 F L Temperature Source Temporal Temporal Pulse Rate (60-100) 66 70 Pulse Location Monitor Monitor Respiratory Rate (12-18) 16 22 H Respiratory rate source Observation Observation Oxygen Delivery Method Room Air Blood Pressure (90/60-120/80) 177/65 H 172/95 H Blood Pressure Mean (mm Hg) 102 120 Source Monitor Monitor Position Sitting Blood Pressure Location Left Arm Pain Scale: 0-10 Numeric Is Patient Pain Free? 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 cone drying machine operator drsg per dl paper cone drying machine operator -Primary Dressing Covered/Secured with Other Other -Other Covering abd abd pad abd -Aquacel AG 4x4 1 1 -Aquacel AG 2x2 1 #7 RLE Ant Cluster -Ulcer Cleansing Soap and Water Rinsed/ Soap and Water Irrigated with Saline -Foul Odor after Cleansing No No No -Negative Pressure Wound Therapy -Primary Dressing Applied Aquacel AG 4x4, Aquacel AG 4x4, Aquacel AG 2x2, NonAdherent NonAdherent NonAdherent Contact Layer Contact Layer Contact Layer -Other Dressing drsg per ak paper cone drying machine operator drsg per dl paper cone drying machine operator -Primary Dressing Covered/Secured with Other Other -Other Covering abd abd pad abd -Aquacel AG 4x4 0 0 -Aquacel AG 2x2 0 Right -Multi-Layered Wrap Application Multi-Layer Multi-Layer Multi-Layer Comp - Right ($ Comp - Right ($ Comp - Right ($ ) ) ) -Compression Wrap -Other 3m per dl paper cone drying machine operator Treatment Response Procedure Procedure Tolerated Well Tolerated Well WC - Visit Discharge Discharge Condition Stable Stable Stable Ambulatory Status Ambulatory,Cane Ambulatory Ambulatory,Cane Transportation Private Auto Private Auto Medication Reconcilliation completed & Yes provided to patient/care provider Clinical Summary of Care Provided Yes 04/16/21 04/20/21 04/23/21 09:32 13:43 09:00 Vital Signs Temperature (97.8 F-99.1 F) 97 F L Temperature Source Temporal Pulse Rate (60-100) 92 Pulse Location Monitor Respiratory Rate (12-18) 18 Respiratory rate source Observation Oxygen Delivery Method Room Air Blood Pressure (90/60-120/80) 160/87 H Blood Pressure Mean (mm Hg) 111 Source Monitor Position Sitting Blood Pressure Location Left Forearm Pain Scale: 0-10 Numeric Is Patient Pain Free? Yes Yes Yes Wound Care Nurse 3 #8 RLE Post -Ulcer Cleansing Rinsed/ Soap and Water Rinsed/ Irrigated with Irrigated with Saline Saline -Foul Odor after Cleansing No No No -Negative Pressure Wound Therapy N/A -Primary Dressing Applied Aquacel AG 4x4 Aquacel AG 4x4 Aquacel AG 4x4 -Other Dressing ABD unna -Primary Dressing Covered/Secured with Other -Other Covering abd -Aquacel AG 4x4 1 1 1 -Aquacel AG 2x2 #7 RLE Ant Cluster -Ulcer Cleansing Rinsed/ Soap and Water Rinsed/ Irrigated with Irrigated with Saline Saline -Foul Odor after Cleansing No No No -Negative Pressure Wound Therapy N/A -Primary Dressing Applied Aquacel AG 4x4 Aquacel AG 4x4 Aquacel AG 4x4 -Other Dressing ABD unna -Primary Dressing Covered/Secured with Other -Other Covering abd -Aquacel AG 4x4 0 0 0 -Aquacel AG 2x2 Right -Multi-Layered Wrap Application Unna Boot - Unna Boot - Unna Boot - Right ($) Right ($) Right ($) -Compression Wrap Unna Boot ($) ( single) -Other Treatment Response Procedure Tolerated Well WC - Visit Discharge Discharge Condition Stable Stable Ambulatory Status Ambulatory,Cane Ambulatory,Cane Transportation Private Auto Private Auto Medication Reconcilliation completed & No provided to patient/care provider Clinical Summary of Care Provided Yes 04/27/21 13:26 Vital Signs Temperature (97.8 F-99.1 F) 96.5 F L Temperature Source Temporal Pulse Rate (60-100) 65 Pulse Location Monitor Respiratory Rate (12-18) 16 Respiratory rate source Observation Oxygen Delivery Method Room Air Blood Pressure (90/60-120/80) 158/70 H Blood Pressure Mean (mm Hg) 99 Source Monitor Position Sitting Blood Pressure Location Left Forearm Pain Scale: 0-10 Numeric Is Patient Pain Free? Yes Wound Care Nurse 3 #8 RLE Post -Ulcer Cleansing Soap and Water -Foul Odor after Cleansing No -Negative Pressure Wound Therapy -Primary Dressing Applied Aquacel AG 4x4 -Other Dressing unna -Primary Dressing Covered/Secured with Other -Other Covering abd -Aquacel AG 4x4 1 -Aquacel AG 2x2 #7 RLE Ant Cluster -Ulcer Cleansing Soap and Water -Foul Odor after Cleansing No -Negative Pressure Wound Therapy -Primary Dressing Applied Aquacel AG 4x4 -Other Dressing unna -Primary Dressing Covered/Secured with Other -Other Covering abd -Aquacel AG 4x4 0 -Aquacel AG 2x2 Right -Multi-Layered Wrap Application Unna Boot - Right ($) -Compression Wrap Unna Boot ($) ( single) -Other Treatment Response Procedure Tolerated Well WC - Visit Discharge Discharge Condition Stable Ambulatory Status Ambulatory,Cane Transportation Private Auto Medication Reconcilliation completed & provided to patient/care provider Clinical Summary of Care Provided Additional Wound Wound debrided: RLE posterior ulcer Laterality: Right Type of Debridement: Excisional debridement Anesthesia Used: 4% Lidocaine Solution and Cetacaine Depth: in the subcutaneous layer Percentage of wound debrided: 100 Instrument Used: 5mm curette Severity: Fat Layer Exposed Amount of bleeding with debridement: Mild Bleeding Controlled with: Pressure Patient tolerated procedure: Patient tolerated procedure well Assessment/Plan Assessment/Plan (1) Ulcer of right lower extremity with fat layer exposed: CODE(S): L97.912 - Non-pressure chronic ulcer of unspecified part of right lower leg with fat layer exposed (2) Venous ulcer of right leg: CODE(S): I83.019 - Varicose veins of right lower extremity with ulcer of unspecified site; L97.919 - Non-pressure chronic ulcer of unspecified part of right lower leg with unspecified severity (3) Nonhealing ulcer of right lower extremity: CODE(S): L97.919 - Non-pressure chronic ulcer of unspecified part of right lower leg with unspecified severity QUALIFIERS: Non-pressure ulcer stage: with fat layer exposed Qualified Code(s): L97.912 - Non-pressure chronic ulcer of unspecified part of right lower leg with fat layer exposed (4) Venous insufficiency: (5) Lymphedema: CODE(S): I89.0 - Lymphedema, not elsewhere classified (6) Morbid obesity: CODE(S): E66.01 - Morbid (severe) obesity due to excess calories (7) Excoriation of right lower leg: CODE(S): S80.811A - Abrasion, right lower leg, initial encounter QUALIFIERS: Encounter type: initial encounter Qualified Code(s): S80.811A - Abrasion, right lower leg, initial encounter (8) Intertrigo: CODE(S): L30.4 - Erythema intertrigo PLAN: Given the duration of the wound and failure of the wound to respond to standard wound care, we will again apply for advanced skin substitutes (Puraply, Nushield, Apligraf). Excisional debridement was performed today as annotated above. The patient's right lower extremity swelling and drainage have significantly improved with the use of compression (Unna boots and 3M wraps). Aquacel Ag applied to the ulcers of the right lower extremity. Resume the use of clotrimazole/betamethasone ointment to the right popliteal fossa due to the presence of intertrigo rash. Unna boot applied to the right lower extremity. Patient was instructed to keep her right lower extremity wraps clean and dry. If anytime the wrap becomes too tight or uncomfortable, she is to elevate her leg. If she experiences numbness, tingling, or discoloration of the toes that does not subside with leg elevation, she is to notify the wound healing center and remove the wrap. Compression: Unna boot to right lower extremity. Lymphedema pumps should be utilized for 1 hour 3 times per day. If this is not well-tolerated, the patient should continue to use the pumps as long and as frequently as possible, working toward this goal. Off-loading: The patient has been instructed to avoid pressure and friction on the affected areas. Reposition every 2 hours at minimum. Avoid prolonged standing and/or dangling of legs. When seated, feet should be elevated at chest level. Frequent ambulation is encouraged. Diet: Patient encouraged to increase protein intake while taking caution to avoid high carbohydrate and/or sugar intake. Labs/cultures/imaging: The patient's wound cultures from 02/05/2021 were positive for 1+ Enterococcus faecalis, and rare MRSA. She was sent to the emergency department for IV antibiotic treatment. She received a dose of IV vancomycin 2000mg and was discharged on 10-day courses of doxycycline and Augmentin, which she has completed. Repeat cultures from 03/12/2021 were negative. Venous and arterial studies were previously ordered in September 2020, though the patient never had these done. These were again ordered in late December 2020, but have not yet been completed. I have advised the patient that this information would be extremely helpful. Given the patient's delayed healing, a wound biopsy was recommended on multiple occasions to evaluate for other potential causes for delayed healing; the patient refused. Follow-up: Consult with lymphedema specialist at [facility] on 01/14/2021 was cancelled by patient due to reported transportation issues. The importance of this consultation has been discussed at length with the patient. She reports she has rescheduled with the lymphedema specialist for May 2021. Return to clinic on Monday for nurse visit. Return in 1 week for reevaluation. Patient was instructed to return sooner or report to the emergency room should symptoms worsen, or new symptoms arise. Note: [employer] speech recognition precast molder software was used to create portions of this document. Sound-alike and misspelled words, as well as other precast molder errors may be contained in the documentation.
== END 2021-05-03 23:59 ==
LOC: WC 08:15
PROVIDERS: PCP Family Medicine; Visit Provider Nurse Practitioner Family
DX: I83.018 Varicose veins of right lower extremity with ulcer other part of lower leg (principal); L97.812 Non-pressure chronic ulcer of other part of right lower leg with fat layer exposed; I48.91 Unspecified atrial fibrillation; E66.01 Morbid (severe) obesity due to excess calories; Z68.42 Body mass index [BMI] 45.0-49.9, adult; I89.0 Lymphedema, not elsewhere classified; I87.2 Venous insufficiency (chronic) (peripheral); E03.9 Hypothyroidism, unspecified; Z79.01 Long term (current) use of anticoagulants; L30.4 Erythema intertrigo; S80.811S Abrasion, right lower leg, sequela; X58.XXXS Exposure to other specified factors, sequela; Z79.890 Hormone replacement therapy; Z79.899 Other long term (current) drug therapy
CPT/HCPCS: 11042; 11045; 29580; 29581

== ENCOUNTER 2021-05-31 08:30 | Outpatient (RCR) | payer MEDICAID, SELFPAY ==
[2021-05-04 00:20] VITALS: BP 146/54; PULSE 80; RESP 16; TEMP 35.7; BMI 49.0
[2021-05-04 13:18] VITALS: BP 150/69; PULSE 65; TEMP 36.2; BMI 49.0
[2021-05-10 13:32] VITALS: BP 179/84; PULSE 66; RESP 16; TEMP 36.5; BMI 49.0
[2021-05-14 08:18] VITALS: BP 122/57; PULSE 59; RESP 16; TEMP 36; BMI 49.0
--- NOTE | 2021-05-14 09:01 | PN.PCM_ITS ---
History of Present Illness Date of Service: 05/14/21 Chief Complaint: Ulcers of right lower extremity History of Wound: [facility] for evaluation and treatment of bilateral lower leg ulcers. The patient is [facility] treatment of prior lower extremity ulcers. She has a PMH significant for chronic lymphedema, venous insufficiency, atrial fibrillation (on Eliquis), morbid obesity, and hypothyroidism. She reported development of her posterior right lower leg ulcer in April 2019. She initially was using Manuka honey to this ulcer, but then started using Vaseline instead. She reported her anterior right lower extremity ulcer developed in August, and she had been applying Vaseline to this daily. Her anterior left lower extremity ulcer developed approximately 1 week prior to her initial January 2020 appt, and she had been applying Vaseline to this daily as well. She notes that approximately 4 to 6 weeks prior, the ulcer on her posterior right lower leg began increasing in soreness. She has lymphedema pumps at home, but had not been using these due to reported pain with use which is related to her ulcers. She does not use compression at home. She reports frequent dangling of her legs while seated at her computer for work. She does not frequently elevate her feet when seated. The patient denied any fever, chills, nausea, vomiting, or diarrhea on initial evaluation. She denied any increasing redness or swelling of the affected area at that time as well. She did note foul-smelling drainage from her right lower extremity. She had not been on any recent antibiotics prior to evaluation. She reported having lab work done approximately 6 weeks prior; these records were requested for review multiple times but never obtained. Lab work was ordered and completed in February 2020 and was significant for the following: CBCD: RBC 3.83 (L), hemoglobin 11.3 (L), hematocrit 34.8 (L), platelets 143 (L) ESR: 93 (H) CMP: Albumin 3.0 (L) CRP: 111 (H) Prealbumin 18.6 (L) She had lower extremity arterial studies completed 05/16/16 which showed relatively normal arterial perfusion to ankle level bilaterally. Triphasic waveforms were noted at ankle level bilaterally. Resting ankle-brachial indices were bilaterally normal. The right digital-brachial index is normal, consistent with normal arterial perfusion at distal, small-vessel level in the right lower extremity. The left digital-brachial index is mildly diminished, suggesting the presence of mild, distal, small-vessel arterial occlusive disease in the left lower extremity. Venous and arterial studies were ordered on 09/11/2020, and the patient was scheduled for an appointment in September for these tests. However the tests were never completed. The patient has continually expressed reluctance regarding wound work-up, and noncompliance with orders. Wound cultures collected on 01/03/2020 were positive for 3+ Aeromonas hydrophilia/caviae, 2+ Citrobacter braakii, 1+ Proteus mirabilis, rare Staphylococus aureus, anaerobic cocci, actinomyces odontolyticus, Bacteroides fragilis; beta-lactamase positive. She completed courses of Levaquin and Augmentin. Weeks later, she developed redness and warmth of a localized lymphedema mass of her right medial thigh; this resolved following a 14-day course of Levaquin and Augmentin. She has continued to have fluctuating redness and warmth of this right medial thigh lymphedema mass. She has completed several courses of antibiotics. Keflex and Levaquin have been of benefit. Doxycycline was not felt to be of significant benefit. A referral to a lymphedema specialist at the [facility] was made, and the importance of scheduling this appointment was discussed with the patient. She has not yet scheduled this appointment. Several conversations have been had with the patient regarding her need for compression and lymphedema management in order for her wounds to heal. She refuses compression. She is noncompliant with elevating her legs. She states she is unable to use her lymphedema pumps at this time due to the size of her legs. Since January 2020, several wound care treatments have been utilized, including Aquacel, Aquacel Ag, Devika. She has completed several applications of advanced skin substitutes (Apligraf, Puraply, and Nushield). Progress of Wound: Patient has had worsening of her wound size and appearance in recent weeks. She has had copious amounts of clear drainage from her right lower extremity, particularly from the anterior RLE. She has severe excoriation of the anterior RLE, as well as new areas of ulceration. She reports she has been changing her super sorb dressings approximately 4 times daily, and they have been saturated when changed. She is using Aquacel Ag to her right lower extremity anterior and posterior ulcers. She again states that she has not been using her lymphedema pumps often, but has been trying to use them more. She does not elevate her leg regularly. She does not use compression. She has not rescheduled her appointment with the lymphedema specialist at the [facility]. She expresses reluctance about lymphedema surgery, stating she knows people who have had surgery and has had numerous complications, as well as healthcare providers that recommend exhausting conservative treatment efforts prior to consideration of surgery. The patient's wound cultures from 02/05/2021 were positive for 1+ Enterococcus faecalis, and rare MRSA. She was sent to the emergency department for IV antibiotic treatment. She received a dose of IV vancomycin 2000mg and was discharged on 10-day courses of doxycycline and Augmentin, which she has completed. Hospital labs were as follows: CBCD: Unremarkable CMP: Unremarkable Lactic acid: Normal INR: Normal The patient was seen by Dr. Desai on 02/16/2021 for [facility]. Aquacel Ag was continued, and the patient was started on Unna boots for compression and treatment of right lower extremity excoriation. Progress of Wound: The patient's right anterior leg wound is healed today. She has some residual dryness and scaling of the skin of the right anterior leg region. Her right posterior leg wound is slightly increased in size today, but the appearance of the wound is stable without clinical signs of infection. She continues to be compliant with the use of compression (Unna boot), about which I am very pleased. Approval for skin substitutes (Apligraf, Nushield, and Puraply) was submitted. Approval has not yet been obtained. Per [employer] rep, we are awaiting response from the patient's insurance company. The patient denies fever, chills, general malaise, or poor appetite. The patient has not had increased redness, swelling, or purulent/malodorous drainage from affected area. Objective Data Objective Data Vital Signs: Vital Signs Temp Pulse Resp BP 96.8 F L 59 L 16 122/57 H 05/14/21 08:18 05/14/21 08:18 05/14/21 08:18 05/14/21 08:18 Oxygen Delivery Method Room Air Body Mass Index (BMI) 49.0 Charges/Coding Procedures Integumentary 111xxx-113xx: 11831 Shante subq tissue 20 sq cm/< Physical Exam Const alert and no apparent distress General Appearance: cooperative, comfortable and well kempt Nutritional Appearance: morbidly obese HEENT Head and Scalp: normocephalic and atraumatic Neck supple Lymph Lymphatic: lymphedema severe (worse in RLE) Resp normal respiratory effort Cardio Peripheral Pulses: dorsalis pedis pulses present right 2+ Extremity normal capillary refill and no joint enlargement General Extremity: edema right lower extremity mild; Negative for clubbing or cyanosis Skin Rashes: rashes noted distal RLE Narrative: Right lower extremity erythema and excoriation is improved, though still present to a lesser degree excoriation red dry nontender and mild Wounds: wounds noted drainage serous, No malodorous, no odor and surrounding erythema Wound Narrative: Anterior RLE ulcer is healed today. There is mild erythema and dry, scaly skin of the right anterior leg region, though this is significantly improved. RLE posterior ulcer with moderate amount of slough and devitalized tissue present. Mild periulcer erythema present. No periulcer warmth. No tunneling, undermining, or probing to bone. Neuro oriented x3, moves all extremities and no focal motor deficits Psych mental status grossly normal, cooperative and affect normal Debridement Note Debridement Note Wound debrided: Posterior RLE ulcer Laterality: Right Type of Debridement: Excisional debridement Anesthesia Used: 4% Lidocaine Solution Depth: in the subcutaneous layer Percentage of wound debrided: 100 Instrument Used: 5mm curette Tissue Removed: Slough and devitalized tissue Severity: Fat Layer Exposed Amount of bleeding with debridement: Mild Bleeding Controlled with: Pressure Patient tolerated procedure: Patient tolerated procedure well Post-Debridement Measurements and Additional Note: Post-Debridement Measurements/Treatment WC - Nurse 1 - General Ulcer Assessment Start: 05/04/21 13:18 Freq: Status: Active Protocol: CHRISTIANNE.DINESH Activity Type Activity Date Activity User E-Sign Co-Sign Detail Recorded Client Recorded Date Recorded By Document 05/04/21 13:18 [place] [id number] 05/04/21 13:21 [place] Document 05/10/21 13:32 [facility] [id number] 05/10/21 13:35 [facility] Document 05/14/21 08:18 [facility] [id number] 05/14/21 08:32 F 05/04/21 05/10/21 05/14/21 13:18 13:32 08:18 - Today's Visit Information Type of service Nurse-only Nurse-only Follow-up Visit Visit Visit (Physician/[employer] ) Arrival Mode Ambulatory,Cane Ambulatory,Cane Ambulatory,Cane Transfer Assistance None None Patient Identification Verified (Name & Yes Yes Yes ) Patient Requires Transmission-Based No No No Precautions Safety Precautions NA Height and Weight Body Mass Index (BMI) 49.0 49.0 49.0 BMI Classification Obese Obese Obese Vital Signs Temperature (97.8 F-99.1 F) 97.2 F L 97.7 F L 96.8 F L Temperature Source Temporal Temporal Temporal Pulse Rate (60-100) 65 66 59 L Pulse Location Monitor Monitor Monitor Respiratory Rate (12-18) 16 16 Respiratory rate source Observation Observation Oxygen Delivery Method Room Air Room Air Blood Pressure (90/60-120/80) 150/69 H 179/84 H 122/57 H Blood Pressure Mean (mm Hg) 96 115 78 Source Monitor Monitor Monitor Position Sitting Sitting Blood Pressure Location Left Arm Left Forearm Comment counseled pt on bp History Since Last Visit- (Skip if this is Patient's initial visit) Have you changed medications since your No No No last visit? Any new allergies or adverse reactions No No No Had a fall/change in ADL's that may No No No increase risk of falls Signs or symptoms of abuse and/or No No No neglect since last visit Have you been in the hospital since your No No No last visit? Has dressing in place as prescribed Yes Yes Yes Has compression in place as prescribed Yes Yes Yes Has offloadiing in place as prescribed N/A N/A N/A Experienced any changes in pain level or No No No management Left Footwear Regular Shoe Regular Shoe Regular Shoe Right Footwear Regular Shoe Regular Shoe Regular Shoe Pain Scale: 0-10 Numeric Is Patient Pain Free? Yes Yes Yes - Nurse 1 - General Ulcer Measurement Start: 05/04/21 13:18 Freq: Status: Active Protocol: Activity Type Activity Date Activity User E-Sign Co-Sign Detail Recorded Client Recorded Date Recorded By Document 05/10/21 13:32 [facility] [id number] 05/10/21 13:35 [facility] Document 05/14/21 08:18 [facility] [id number] 02/11/22 08:32 [facility] 05/10/21 05/14/21 13:32 08:18 #8 RLE Post -Combined with other wound No -Current Size (cm) - Length 3.1 -Current Size (cm) - Width 2.3 -Current Size (cm) - Depth 0.1 -Total Square Cm 7.13 -Date of Last Picture (Recall this 05/14/21 field) -Photo Taken Yes -Epithelialization Small 1-33% -Tunneling No -Undermining/Tunneling No -Circular Undermining No -Exudate Amt Medium -Exudate Type Serosanguineous -Wound Margin Distinct, Outline Attached -Granulation Amt Large (67-100%) -Granulation Quality Red -Slough/Fibrin Yes -Necrosis Amt Small (1-33%) -Necrotic Tissue Type Adherent Slough -Texture (Irene-wound Skin Appearance) Assessed, Scarring -Moisture (Irene-wound Skin Appearance) Assessed,Dry/ Scaly -Color (Irene-wound Skin Appearance) Assessed -Temperature (Irene-wound Skin No Abnormality Appearance) (Pt Warm) -Tenderness on Palpation (Irene-wound No Skin Appearance) -Ulcer Cleansing Soap and Water -Foul Odor after Cleansing No -Anesthetic Used 5% Lidocaine Gel #7 RLE Ant Cluster -Combined with other wound No -Current Size (cm) - Length 0.1 -Current Size (cm) - Width 0.1 -Current Size (cm) - Depth 0.1 -Total Square Cm 0.01 -Date of Last Picture (Recall this 05/14/21 field) -Photo Taken Yes -Epithelialization Large 67-100% -Texture (Irene-wound Skin Appearance) Assessed, Scarring -Moisture (Irene-wound Skin Appearance) Assessed,Dry/ Scaly -Color (Irene-wound Skin Appearance) Assessed -Temperature (Irene-wound Skin No Abnormality Appearance) (Pt Warm) -Tenderness on Palpation (Irene-wound No Skin Appearance) -Ulcer Cleansing Soap and Water -Foul Odor after Cleansing No Wound Center Nurse 1 Lower Limb Edema Present Yes Right Calf (cm) 64.6 Right Ankle (cm) 30.5 WC - Nurse 3 - General Ulcer D/C NN Start: 05/04/21 13:18 Freq: Status: Active Protocol: Activity Type Activity Date Activity User E-Sign Co-Sign Detail Recorded Client Recorded Date Recorded By Document 05/04/21 13:18 [place] [id number] 05/04/21 13:21 AK Edit Result 05/04/21 13:18 AK (1) [id number] 05/05/21 07:27 PL Document 05/10/21 13:32 [facility] [id number] 05/10/21 13:35 BMF Edit Result 05/10/21 13:32 BMF (2) [id number] 05/10/21 13:37 BMF Document 05/14/21 08:57 MT [id number] 05/14/21 08:58 MT (1) Right - Multi-Layered Wrap Application => Unna Boot - Right => ($) - Compression Wrap Unna Boot ($) ( => single) => (2) #8 RLE Post - Other Dressing => UNNA #7 RLE Ant Cluster - Primary Dressing Applied Aquacel AG 4x4 => Aquacel AG 4x4, => Other - Other Dressing => UNNA Right - Multi-Layered Wrap Application Multi-Layer Comp - => Unna Boot - Right Right ($) => ($) - Compression Wrap => Unna Boot ($) ( => single) - Other 3M APPLIED PER AK => UNNA APPLIED PER HAM MARKER => AK HAM MARKER 05/04/21 05/10/21 05/14/21 13:18 13:32 08:57 Vital Signs Temperature (97.8 F-99.1 F) 97.2 F L 97.7 F L Temperature Source Temporal Temporal Pulse Rate (60-100) 65 66 Pulse Location Monitor Monitor Respiratory Rate (12-18) 16 Respiratory rate source Observation Oxygen Delivery Method Room Air Blood Pressure (90/60-120/80) 150/69 H 179/84 H Blood Pressure Mean (mm Hg) 96 115 Source Monitor Monitor Position Sitting Blood Pressure Location Left Arm Comment counseled pt on bp Pain Scale: 0-10 Numeric Is Patient Pain Free? Yes Yes Yes Wound Care Nurse 3 #8 RLE Post -Ulcer Cleansing Soap and Water Soap and Water Soap and Water -Primary Dressing Applied Aquacel AG 4x4 Aquacel AG 4x4 Aquacel AG 4x4 -Other Dressing UNNA -Primary Dressing Covered/Secured with Other Dry Gauze & Roll Gauze, Secured with Tape -Other Covering abd, dr[facility] -Aquacel AG 4x4 1 1 1 #7 RLE Ant Cluster -Ulcer Cleansing Soap and Water Soap and Water Soap and Water -Foul Odor after Cleansing No -Primary Dressing Applied Aquacel AG 4x4, Other -Other Dressing UNNA -Primary Dressing Covered/Secured with Other Dry Gauze & Roll Gauze, Secured with Tape -Other Covering abd, drsg [facility] -Aquacel AG 4x4 0 Right -Multi-Layered Wrap Application Unna Boot - Unna Boot - Unna Boot - Right ($) Right ($) Right ($) -Compression Wrap Unna Boot ($) ( single) -Other UNNA APPLIED PER [facility] Treatment Response Procedure Tolerated Well WC - Visit Discharge Discharge Condition Stable Stable Stable Ambulatory Status Ambulatory,Cane Ambulatory,Cane Cane Transportation Private Auto Private Auto Medication Reconcilliation completed & Yes No provided to patient/care provider Clinical Summary of Care Provided Yes Yes Notes: pt verbalized understanding of wound dressing and care Assessment/Plan Assessment/Plan (1) Ulcer of right lower extremity with fat layer exposed: CODE(S): L97.912 - Non-pressure chronic ulcer of unspecified part of right lower leg with fat layer exposed (2) Venous ulcer of right leg: CODE(S): I83.019 - Varicose veins of right lower extremity with ulcer of unspecified site; L97.919 - Non-pressure chronic ulcer of unspecified part of right lower leg with unspecified severity (3) Nonhealing ulcer of right lower extremity: CODE(S): L97.919 - Non-pressure chronic ulcer of unspecified part of right lower leg with unspecified severity QUALIFIERS: Non-pressure ulcer stage: with fat layer exposed Qualified Code(s): L97.912 - Non-pressure chronic ulcer of unspecified part of right lower leg with fat layer exposed (4) Venous insufficiency: (5) Lymphedema: CODE(S): I89.0 - Lymphedema, not elsewhere classified (6) Morbid obesity: CODE(S): E66.01 - Morbid (severe) obesity due to excess calories (7) Excoriation of right lower leg: CODE(S): S80.811A - Abrasion, right lower leg, initial encounter QUALIFIERS: Encounter type: initial encounter Qualified Code(s): S80.811A - Abrasion, right lower leg, initial encounter (8) Intertrigo: CODE(S): L30.4 - Erythema intertrigo PLAN: Right anterior leg ulcer is healed. Given the duration of the wound and failure of the wound to respond to standard wound care, we have again applied for advanced skin substitutes (Puraply, Nushield, Apligraf) we are awaiting response from patient's insurance. We will also apply for EpiFix. Excisional debridement was performed today as annotated above. The patient's right lower extremity swelling and drainage have significantly improved with the use of compression (Unna boots and 3M wraps). Aquacel Ag applied to the ulcer of the right posterior lower extremity. Continue clotrimazole/betamethasone ointment to the right popliteal fossa due to the presence of intertrigo rash. Unna boot applied to the right lower extremity. Patient was instructed to keep her right lower extremity wraps clean and dry. If anytime the wrap becomes too tight or uncomfortable, she is to elevate her leg. If she experiences numbness, tingling, or discoloration of the toes that does not subside with leg elevation, she is to notify the wound healing center and remove the wrap. Compression: Unna boot to right lower extremity. Lymphedema pumps should be utilized for 1 hour 3 times per day. If this is not well-tolerated, the patient should continue to use the pumps as long and as frequently as possible, working toward this goal. Off-loading: The patient has been instructed to avoid pressure and friction on the affected areas. Reposition every 2 hours at minimum. Avoid prolonged standing and/or dangling of legs. When seated, feet should be elevated at chest level. Frequent ambulation is encouraged. Diet: Patient encouraged to increase protein intake while taking caution to avoid high carbohydrate and/or sugar intake. Labs/cultures/imaging: The patient's wound cultures from 02/05/2021 were positive for 1+ Enterococcus faecalis, and rare MRSA. She was sent to the emergency department for IV antibiotic treatment. She received a dose of IV vancomycin 2000mg and was discharged on 10-day courses of doxycycline and Augmentin, which she has completed. Repeat cultures from 03/12/2021 were negative. Venous and arterial studies were previously ordered in September 2020, though the patient never had these done. These were again ordered in late December 2020, but have not yet been completed. I have advised the patient that this information would be extremely helpful. Given the patient's delayed healing, a wound biopsy was recommended on multiple occasions to evaluate for other potential causes for delayed healing; the patient refused. Follow-up: Consult with lymphedema specialist at [facility] on 01/14/2021 was cancelled by patient due to reported transportation issues. The importance of this consultation has been discussed at length with the patient. She reports she has rescheduled with the lymphedema specialist for May 2021. Return to clinic on Monday for nurse visit. Return in 1 week for reevaluation. Patient was instructed to return sooner or report to the emergency room should symptoms worsen, or new symptoms arise. Note: [employer] speech recognition utilities manager software was used to create portions of this document. Sound-alike and misspelled words, as well as other utilities manager errors may be contained in the documentation.
[2021-05-18 13:25] VITALS: BP 141/51; PULSE 67; RESP 22; TEMP 36.4; BMI 49.0
[2021-05-24 14:06] VITALS: BP 142/84; PULSE 78; RESP 18; TEMP 36; BMI 49.0
[2021-05-31 08:36] VITALS: BP 143/87; PULSE 98; RESP 16; TEMP 36.1; BMI 49.0
== END 2021-05-31 23:59 | disposition home or self-care (01) ==
LOC: WC 08:30
PROVIDERS: PCP Family Medicine; Visit Provider Nurse Practitioner Family
DX: L97.822 Non-pressure chronic ulcer of other part of left lower leg with fat layer exposed (principal); I48.91 Unspecified atrial fibrillation; E66.01 Morbid (severe) obesity due to excess calories; I87.2 Venous insufficiency (chronic) (peripheral); I89.0 Lymphedema, not elsewhere classified; S80.811A Abrasion, right lower leg, initial encounter; E03.9 Hypothyroidism, unspecified; Z79.01 Long term (current) use of anticoagulants; Z79.890 Hormone replacement therapy; Z79.899 Other long term (current) drug therapy
CPT/HCPCS: 29581; 11042; 29580

== ENCOUNTER 2021-06-29 13:00 | Outpatient (RCR) | payer MEDICAID, SELFPAY ==
[2021-06-01 00:22] VITALS: BP 143/87; PULSE 98; RESP 16; TEMP 36.1; BMI 49.0
--- NOTE | 2021-06-04 09:00 | PN.PCM_ITS ---
History of Present Illness Date of Service: 06/04/21 Chief Complaint: Ulcers of right lower extremity History of Wound: [facility] for evaluation and treatment of bilateral lower leg ulcers. The patient is [facility] treatment of prior lower extremity ulcers. She has a PMH significant for chronic lymphedema, venous insufficiency, atrial fibrillation (on Eliquis), morbid obesity, and hypothyroidism. She reported development of her posterior right lower leg ulcer in April 2019. She initially was using Manuka honey to this ulcer, but then started using Vaseline instead. She reported her anterior right lower extremity ulcer developed in August, and she had been applying Vaseline to this daily. Her anterior left lower extremity ulcer developed approximately 1 week prior to her initial January 2020 appt, and she had been applying Vaseline to this daily as well. She notes that approximately 4 to 6 weeks prior, the ulcer on her posterior right lower leg began increasing in soreness. She has lymphedema pumps at home, but had not been using these due to reported pain with use which is related to her ulcers. She does not use compression at home. She reports frequent dangling of her legs while seated at her computer for work. She does not frequently elevate her feet when seated. The patient denied any fever, chills, nausea, vomiting, or diarrhea on initial evaluation. She denied any increasing redness or swelling of the affected area at that time as well. She did note foul-smelling drainage from her right lower extremity. She had not been on any recent antibiotics prior to evaluation. She reported having lab work done approximately 6 weeks prior; these records were requested for review multiple times but never obtained. Lab work was ordered and completed in February 2020 and was significant for the following: CBCD: RBC 3.83 (L), hemoglobin 11.3 (L), hematocrit 34.8 (L), platelets 143 (L) ESR: 93 (H) CMP: Albumin 3.0 (L) CRP: 111 (H) Prealbumin 18.6 (L) She had lower extremity arterial studies completed 05/16/16 which showed relatively normal arterial perfusion to ankle level bilaterally. Triphasic waveforms were noted at ankle level bilaterally. Resting ankle-brachial indices were bilaterally normal. The right digital-brachial index is normal, consistent with normal arterial perfusion at distal, small-vessel level in the right lower extremity. The left digital-brachial index is mildly diminished, suggesting the presence of mild, distal, small-vessel arterial occlusive disease in the left lower extremity. Venous and arterial studies were ordered on 09/11/2020, and the patient was scheduled for an appointment in September for these tests. However the tests were never completed. The patient has continually expressed reluctance regarding wound work-up, and noncompliance with orders. Wound cultures collected on 01/03/2020 were positive for 3+ Aeromonas hydrophilia/caviae, 2+ Citrobacter braakii, 1+ Proteus mirabilis, rare Staphylococus aureus, anaerobic cocci, actinomyces odontolyticus, Bacteroides fragilis; beta-lactamase positive. She completed courses of Levaquin and Augmentin. Weeks later, she developed redness and warmth of a localized lymphedema mass of her right medial thigh; this resolved following a 14-day course of Levaquin and Augmentin. She has continued to have fluctuating redness and warmth of this right medial thigh lymphedema mass. She has completed several courses of antibiotics. Keflex and Levaquin have been of benefit. Doxycycline was not felt to be of significant benefit. A referral to a lymphedema specialist at the [facility] was made, and the importance of scheduling this appointment was discussed with the patient. She has not yet scheduled this appointment. Several conversations have been had with the patient regarding her need for compression and lymphedema management in order for her wounds to heal. She refuses compression. She is noncompliant with elevating her legs. She states she is unable to use her lymphedema pumps at this time due to the size of her legs. Since January 2020, several wound care treatments have been utilized, including Aquacel, Aquacel Ag, Devika. She has completed several applications of advanced skin substitutes (Apligraf, Puraply, and Nushield). Progress of Wound: Patient has had worsening of her wound size and appearance in recent weeks. She has had copious amounts of clear drainage from her right lower extremity, particularly from the anterior RLE. She has severe excoriation of the anterior RLE, as well as new areas of ulceration. She reports she has been changing her super sorb dressings approximately 4 times daily, and they have been saturated when changed. She is using Aquacel Ag to her right lower extremity anterior and posterior ulcers. She again states that she has not been using her lymphedema pumps often, but has been trying to use them more. She does not elevate her leg regularly. She does not use compression. She has not rescheduled her appointment with the lymphedema specialist at the [facility]. She expresses reluctance about lymphedema surgery, stating she knows people who have had surgery and has had numerous complications, as well as healthcare providers that recommend exhausting conservative treatment efforts prior to consideration of surgery. The patient's wound cultures from 02/05/2021 were positive for 1+ Enterococcus faecalis, and rare MRSA. She was sent to the emergency department for IV antibiotic treatment. She received a dose of IV vancomycin 2000mg and was discharged on 10-day courses of doxycycline and Augmentin, which she has completed. Hospital labs were as follows: CBCD: Unremarkable CMP: Unremarkable Lactic acid: Normal INR: Normal The patient was seen by Dr. Desai on 02/16/2021 for [facility]. Aquacel Ag was continued, and the patient was started on Unna boots for compression and treatment of right lower extremity excoriation. Progress of Wound: Patient has not been debrided in the past few weeks due to inclement weather and inability to make it to her provider visits. She has still been compliant with nurse visits and the use of Unna boot to RLE. Her wound in improved in size and appearance today. The patient denies fever, chills, general malaise, or poor appetite. The patient has not had increased redness, swelling, or purulent/malodorous drainage from affected area. Objective Data Objective Data Vital Signs: Vital Signs Temp Pulse Resp BP 96.9 F L 98 16 143/87 H 06/01/21 00:22 06/01/21 00:22 06/01/21 00:22 06/01/21 00:22 Body Mass Index (BMI) 49.0 Charges/Coding Procedures Integumentary 150xxx-152xx: 18798 Skin sub graft trnk/arm/leg Physical Exam Const alert and no apparent distress General Appearance: cooperative, comfortable and well kempt Nutritional Appearance: morbidly obese HEENT Head and Scalp: normocephalic and atraumatic Neck supple Lymph Lymphatic: lymphedema severe (worse in RLE) Resp normal respiratory effort Cardio Peripheral Pulses: dorsalis pedis pulses present right 2+ Extremity normal capillary refill and no joint enlargement General Extremity: edema right lower extremity trace; Negative for clubbing or cyanosis Skin Rashes: rashes noted distal RLE Narrative: Right lower extremity erythema and excoriation is improved, though still present to a lesser degree excoriation red dry nontender and mild Wounds: wounds noted drainage serous, No malodorous, no odor and surrounding erythema Wound Narrative: Anterior RLE ulcer remains healed. There is mild erythema and dry, scaly skin of the right anterior leg region, though this is significantly improved. RLE posterior ulcer with small amount of slough and devitalized tissue present. Mild periulcer erythema present. No periulcer warmth. No tunneling, undermining, or probing to bone. Neuro oriented x3, moves all extremities and no focal motor deficits Psych mental status grossly normal, cooperative and affect normal Debridement Note Debridement Note Wound debrided: Posterior RLE Laterality: Right Type of Debridement: Excisional debridement Anesthesia Used: 4% Lidocaine Solution Depth: in the subcutaneous layer Percentage of wound debrided: 100 Instrument Used: 5mm curette Tissue Removed: Slough and devitalized tissue Severity: Fat Layer Exposed Amount of bleeding with debridement: Mild Bleeding Controlled with: Pressure Patient tolerated procedure: Patient tolerated procedure well Assessment/Plan Assessment/Plan (1) Ulcer of right lower extremity with fat layer exposed: CODE(S): L97.912 - Non-pressure chronic ulcer of unspecified part of right lower leg with fat layer exposed (2) Venous ulcer of right leg: CODE(S): I83.019 - Varicose veins of right lower extremity with ulcer of unspecified site; L97.919 - Non-pressure chronic ulcer of unspecified part of right lower leg with unspecified severity (3) Nonhealing ulcer of right lower extremity: CODE(S): L97.919 - Non-pressure chronic ulcer of unspecified part of right lower leg with unspecified severity QUALIFIERS: Non-pressure ulcer stage: with fat layer exposed Qualified Code(s): L97.912 - Non-pressure chronic ulcer of unspecified part of right lower leg with fat layer exposed (4) Venous insufficiency: (5) Lymphedema: CODE(S): I89.0 - Lymphedema, not elsewhere classified (6) Morbid obesity: CODE(S): E66.01 - Morbid (severe) obesity due to excess calories (7) Excoriation of right lower leg: CODE(S): S80.811A - Abrasion, right lower leg, initial encounter QUALIFIERS: Encounter type: initial encounter Qualified Code(s): S80.811A - Abrasion, right lower leg, initial encounter (8) Intertrigo: CODE(S): L30.4 - Erythema intertrigo PLAN: Right anterior leg ulcer remains healed. Given the duration of the wound and failure of the wound to respond to standard wound care, we have again applied for advanced skin substitutes (Puraply, Nushield, Apligraf). We were approved for Apligraf and EpiFix. Excisional debridement was performed today as annotated above. The patient's right lower extremity swelling and drainage have significantly improved with the use of compression (Unna boots and 3M wraps). EpiFix #1 applied to the posterior RLE ulcer (2 cm? size); 100% of the product was used. EpiFix was secured with Adaptic touch and Steri-Strips. A small amount of hydrogel was placed atop the EpiFix. The dressing was covered with gauze. Unna boot applied to the right lower extremity for compression. Unna boot applied to the right lower extremity. Patient was instructed to keep her right lower extremity wraps clean and dry. If anytime the wrap becomes too tight or uncomfortable, she is to elevate her leg. If she experiences numbness, tingling, or discoloration of the toes that does not subside with leg elevation, she is to notify the wound healing center and remove the wrap. Compression: Unna boot to right lower extremity. Lymphedema pumps should be utilized for 1 hour 3 times per day. If this is not well-tolerated, the patient should continue to use the pumps as long and as frequently as possible, working toward this goal. Off-loading: The patient has been instructed to avoid pressure and friction on the affected areas. Reposition every 2 hours at minimum. Avoid prolonged standing and/or dangling of legs. When seated, feet should be elevated at chest level. Frequent ambulation is encouraged. Diet: Patient encouraged to increase protein intake while taking caution to avoid high carbohydrate and/or sugar intake. Labs/cultures/imaging: The patient's wound cultures from 02/05/2021 were positive for 1+ Enterococcus faecalis, and rare MRSA. She was sent to the emergency department for IV antibiotic treatment. She received a dose of IV vancomycin 2000mg and was discharged on 10-day courses of doxycycline and Augmentin, which she has completed. Repeat cultures from 03/12/2021 were negative. Venous and arterial studies were previously ordered in September 2020, though the patient never had these done. These were again ordered in late December 2020, but have not yet been completed. I have advised the patient that this information would be extremely helpful. Given the patient's delayed healing, a wound biopsy was recommended on multiple occasions to evaluate for other potential causes for delayed healing; the patient refused. Follow-up: Consult with lymphedema specialist at [facility] on 01/14/2021 was cancelled by patient due to reported transportation issues. The importance of this consultation has been discussed at length with the patient. She reported she had rescheduled with the lymphedema specialist for May 2021, but she did not attend this appointment. Return to clinic on Monday for nurse visit. Return in 1 week for reevaluation. Patient was instructed to return sooner or report to the emergency room should symptoms worsen, or new symptoms arise. Note: [employer] speech recognition crab meat processor software was used to create portions of this document. Sound-alike and misspelled words, as well as other crab meat processor errors may be contained in the documentation.
[2021-06-04 09:07] VITALS: BP 136/102; PULSE 76; RESP 18; TEMP 35.5; BMI 49.0
--- NOTE | 2021-06-04 09:10 | WC ---
leg measurements obtained for circaid RLE- 47 ankle to knee, calf 66.6, ankle 28.9 LLE- 46 ankle to knee, calf 69.6, ankle 33.4
[2021-06-08 13:25] VITALS: BP 134/88; PULSE 77; RESP 77; TEMP 36.1; BMI 49.0
[2021-06-11 07:56] VITALS: TEMP 35.7; BMI 49.0
--- NOTE | 2021-06-11 08:16 | PN.PCM_ITS ---
History of Present Illness Date of Service: 06/11/21 Chief Complaint: Ulcers of right lower extremity History of Wound: [facility] for evaluation and treatment of bilateral lower leg ulcers. The patient is [facility] treatment of prior lower extremity ulcers. She has a PMH significant for chronic lymphedema, venous insufficiency, atrial fibrillation (on Eliquis), morbid obesity, and hypothyroidism. She reported development of her posterior right lower leg ulcer in April 2019. She initially was using Manuka honey to this ulcer, but then started using Vaseline instead. She reported her anterior right lower extremity ulcer developed in August, and she had been applying Vaseline to this daily. Her anterior left lower extremity ulcer developed approximately 1 week prior to her initial January 2020 appt, and she had been applying Vaseline to this daily as well. She notes that approximately 4 to 6 weeks prior, the ulcer on her posterior right lower leg began increasing in soreness. She has lymphedema pumps at home, but had not been using these due to reported pain with use which is related to her ulcers. She does not use compression at home. She reports frequent dangling of her legs while seated at her computer for work. She does not frequently elevate her feet when seated. The patient denied any fever, chills, nausea, vomiting, or diarrhea on initial evaluation. She denied any increasing redness or swelling of the affected area at that time as well. She did note foul-smelling drainage from her right lower extremity. She had not been on any recent antibiotics prior to evaluation. She reported having lab work done approximately 6 weeks prior; these records were requested for review multiple times but never obtained. Lab work was ordered and completed in February 2020 and was significant for the following: CBCD: RBC 3.83 (L), hemoglobin 11.3 (L), hematocrit 34.8 (L), platelets 143 (L) ESR: 93 (H) CMP: Albumin 3.0 (L) CRP: 111 (H) Prealbumin 18.6 (L) She had lower extremity arterial studies completed 05/16/16 which showed relatively normal arterial perfusion to ankle level bilaterally. Triphasic waveforms were noted at ankle level bilaterally. Resting ankle-brachial indices were bilaterally normal. The right digital-brachial index is normal, consistent with normal arterial perfusion at distal, small-vessel level in the right lower extremity. The left digital-brachial index is mildly diminished, suggesting the presence of mild, distal, small-vessel arterial occlusive disease in the left lower extremity. Venous and arterial studies were ordered on 09/11/2020, and the patient was scheduled for an appointment in September for these tests. However the tests were never completed. The patient has continually expressed reluctance regarding wound work-up, and noncompliance with orders. Wound cultures collected on 01/03/2020 were positive for 3+ Aeromonas hydrophilia/caviae, 2+ Citrobacter braakii, 1+ Proteus mirabilis, rare Staphylococus aureus, anaerobic cocci, actinomyces odontolyticus, Bacteroides fragilis; beta-lactamase positive. She completed courses of Levaquin and Augmentin. Weeks later, she developed redness and warmth of a localized lymphedema mass of her right medial thigh; this resolved following a 14-day course of Levaquin and Augmentin. She has continued to have fluctuating redness and warmth of this right medial thigh lymphedema mass. She has completed several courses of antibiotics. Keflex and Levaquin have been of benefit. Doxycycline was not felt to be of significant benefit. A referral to a lymphedema specialist at the [facility] was made, and the importance of scheduling this appointment was discussed with the patient. She has not yet scheduled this appointment. Several conversations have been had with the patient regarding her need for compression and lymphedema management in order for her wounds to heal. She refuses compression. She is noncompliant with elevating her legs. She states she is unable to use her lymphedema pumps at this time due to the size of her legs. Since January 2020, several wound care treatments have been utilized, including Aquacel, Aquacel Ag, Devika. She has completed several applications of advanced skin substitutes (Apligraf, Puraply, and Nushield). Progress of Wound: Patient has had worsening of her wound size and appearance in recent weeks. She has had copious amounts of clear drainage from her right lower extremity, particularly from the anterior RLE. She has severe excoriation of the anterior RLE, as well as new areas of ulceration. She reports she has been changing her super sorb dressings approximately 4 times daily, and they have been saturated when changed. She is using Aquacel Ag to her right lower extremity anterior and posterior ulcers. She again states that she has not been using her lymphedema pumps often, but has been trying to use them more. She does not elevate her leg regularly. She does not use compression. She has not rescheduled her appointment with the lymphedema specialist at the [facility]. She expresses reluctance about lymphedema surgery, stating she knows people who have had surgery and has had numerous complications, as well as healthcare providers that recommend exhausting conservative treatment efforts prior to consideration of surgery. The patient's wound cultures from 02/05/2021 were positive for 1+ Enterococcus faecalis, and rare MRSA. She was sent to the emergency department for IV antibiotic treatment. She received a dose of IV vancomycin 2000mg and was discharged on 10-day courses of doxycycline and Augmentin, which she has completed. Hospital labs were as follows: CBCD: Unremarkable CMP: Unremarkable Lactic acid: Normal INR: Normal The patient was seen by Dr. Desai on 02/16/2021 for [facility]. Aquacel Ag was continued, and the patient was started on Unna boots for compression and treatment of right lower extremity excoriation. Progress of Wound: EpiFix was well tolerated. Compliant with Unna boot. Her wound in improved in size and appearance today. The patient denies fever, chills, general malaise, or poor appetite. The patient has not had increased redness, swelling, or purulent/malodorous drainage from affected area. Objective Data Objective Data Vital Signs: Vital Signs Temp Pulse Resp BP 96.9 F L 77 77 H 134/88 H 06/08/21 13:25 06/08/21 13:25 06/08/21 13:25 06/08/21 13:25 Oxygen Delivery Method Room Air Body Mass Index (BMI) 49.0 Charges/Coding Procedures Integumentary 150xxx-152xx: 34957 Skin sub graft trnk/arm/leg Physical Exam Const alert and no apparent distress General Appearance: cooperative, comfortable and well kempt Nutritional Appearance: morbidly obese HEENT Head and Scalp: normocephalic and atraumatic Neck supple Lymph Lymphatic: lymphedema severe (worse in RLE) Resp normal respiratory effort Cardio Peripheral Pulses: dorsalis pedis pulses present right 2+ Extremity normal capillary refill and no joint enlargement General Extremity: edema right lower extremity trace; Negative for clubbing or cyanosis Skin Rashes: rashes noted distal RLE Narrative: Right lower extremity erythema and excoriation is improved, though still present to a lesser degree excoriation red dry nontender and mild Wounds: wounds noted drainage serous, No malodorous, no odor and surrounding erythema Wound Narrative: Anterior RLE ulcer remains healed. There is mild erythema and dry, scaly skin of the right anterior leg region, though this is significantly improved. RLE posterior ulcer with small amount of slough and devitalized tissue present. Mild periulcer erythema present. No periulcer warmth. No tunneling, undermining, or probing to bone. Neuro oriented x3, moves all extremities and no focal motor deficits Psych mental status grossly normal, cooperative and affect normal Debridement Note Debridement Note Wound debrided: RLE posterior ulcer Laterality: Right Type of Debridement: Excisional debridement Anesthesia Used: 4% Lidocaine Solution Depth: in the subcutaneous layer Percentage of wound debrided: 100 Instrument Used: 3mm curette Tissue Removed: Slough and devitalized tissue Severity: Fat Layer Exposed Amount of bleeding with debridement: Mild Bleeding Controlled with: Pressure Patient tolerated procedure: Patient tolerated procedure well Post-Debridement Measurements and Additional Note: Post-Debridement Measurements/Treatment [facility] Nurse 1 - General Ulcer Assessment Start: 06/04/21 09:07 Freq: Status: Active Protocol: SAWYER Activity Type Activity Date Activity User E-Sign Co-Sign Detail Recorded Client Recorded Date Recorded By Document 06/04/21 09:07 [facility] [id number] 06/04/21 09:09 [facility] Document 06/08/21 13:25 [facility] [id number] 06/08/21 13:27 [facility] 06/04/21 06/08/21 09:07 13:25 - Today's Visit Information Type of service Follow-up Visit Nurse-only (Physician/JUDGE CLERK Visit ) Arrival Mode Ambulatory,Cane Ambulatory,Cane Transfer Assistance None None Patient Identification Verified (Name & Yes Yes ) Patient Requires Transmission-Based No No Precautions Height and Weight Body Mass Index (BMI) 49.0 49.0 BMI Classification Obese Obese Vital Signs Temperature (97.8 F-99.1 F) 96 F L 96.9 F L Temperature Source Temporal Temporal Pulse Rate (60-100) 76 77 Pulse Location Monitor Monitor Respiratory Rate (12-18) 18 77 H Respiratory rate source Observation Observation Oxygen Delivery Method Room Air Room Air Blood Pressure (90/60-120/80) 136/102 H 134/88 H Blood Pressure Mean (mm Hg) 113 103 Source Monitor Monitor Position Sitting Sitting Blood Pressure Location Right Forearm Right Forearm History Since Last Visit- (Skip if this is Patient's initial visit) Have you changed medications since your No No last visit? Any new allergies or adverse reactions No No Had a fall/change in ADL's that may No No increase risk of falls Signs or symptoms of abuse and/or No No neglect since last visit Have you been in the hospital since your No No last visit? Has dressing in place as prescribed Yes Yes Has compression in place as prescribed Yes Yes Has offloadiing in place as prescribed N/A N/A Experienced any changes in pain level or No No management Left Footwear Regular Shoe Regular Shoe Right Footwear Regular Shoe Regular Shoe Pain Scale: 0-10 Numeric Is Patient Pain Free? Yes Yes WC - Nurse 1 - General Ulcer Measurement Start: 06/04/21 09:07 Freq: Status: Active Protocol: Activity Type Activity Date Activity User E-Sign Co-Sign Detail Recorded Client Recorded Date Recorded By Document 06/04/21 09:07 [facility] [id number] 06/04/21 09:09 [facility] 06/04/21 09:07 [facility] Nurse 1 #8 RLE Post -Combined with other wound No -Current Size (cm) - Length 2.5 -Current Size (cm) - Width 1 -Current Size (cm) - Depth 0.1 -Total Square Cm 2.5 -Photo Taken No -Epithelialization Small 1-33% -Tunneling No -Undermining/Tunneling No -Circular Undermining No -Exudate Amt Medium -Exudate Type Serosanguineous -Wound Margin Distinct, Outline Attached -Granulation Amt Large (67-100%) -Granulation Quality Red -Slough/Fibrin Yes -Necrosis Amt Small (1-33%) -Necrotic Tissue Type Adherent Slough -Texture (Irene-wound Skin Appearance) Assessed, Scarring -Moisture (Irene-wound Skin Appearance) Assessed -Color (Irene-wound Skin Appearance) Assessed -Temperature (Irene-wound Skin No Abnormality Appearance) (Pt Warm) -Tenderness on Palpation (Irene-wound No Skin Appearance) -Ulcer Cleansing Soap and Water -Foul Odor after Cleansing No -Anesthetic Used 5% Lidocaine Gel Lower Limb Edema Present Yes Right Calf (cm) 66.6 Right Ankle (cm) 28.9 Left Calf (cm) 69.6 Left Ankle (cm) 33.4 WC - Nurse 2 - General Ulcer CM Notes Start: 06/04/21 09:07 Freq: Status: Active Protocol: Activity Type Activity Date Activity User E-Sign Co-Sign Detail Recorded Client Recorded Date Recorded By Document 06/04/21 09:28 PL Desktop 06/04/21 09:35 PL 06/04/21 09:28 W[facility] Center Nurse 2 #8 RLE Post -Time 08:24 -Correct Patient Yes -Correct Side, Site, Position Yes -Correct Procedure Yes -Procedure Performed Yes -Type of Procedure Debridement -Clinical Debridement Subcutaneous -Tissue Removed Subcutaneous -Post Debridement (cm) - Length 2.9 -Post Debridement (cm) - Width 1.9 -Post Debridement (cm) - Depth 0.1 -Total Square (Post) (cm) 5.51 -Area of Debridement (cm) - Length 2.9 -Area of Debridement (cm) - Width 1.9 -Total Square (Area) (cm) 5.51 -Tunneling No -Undermining/Tunneling No -Circular Undermining No -Wound/Ulcer Outcome Not Healed -Ulcer Cleansing Rinsed/ Irrigated with Saline -Foul Odor after Cleansing No -Bioengineered Tissue Yes -Type of Bioengineered Tissue Epifix -Expiration Date 02/01/26 -Product Lot Number [id number] -Percent Used 100 -Bleeding Controlled with Pressure -Treatment Response Procedure Tolerated Well -Debridement - Subq, 1st 20sq cm No -Apply Skin Sub - 1st 25 sq cm - Legs 1 -Epifix (per sq cm) 4 Pain Scale: 0-10 Numeric Is Patient Pain Free? Yes WC - Nurse 3 - General Ulcer D/C NN Start: 06/04/21 09:07 Freq: Status: Active Protocol: Activity Type Activity Date Activity User E-Sign Co-Sign Detail Recorded Client Recorded Date Recorded By Document 06/04/21 09:07 [facility] [id number] 06/04/21 09:09 [facility] Document 06/08/21 13:25 [facility] [id number] 06/08/21 13:27 BM 06/04/21 06/08/21 09:07 13:25 Vital Signs Temperature (97.8 F-99.1 F) 96 F L 96.9 F L Temperature Source Temporal Temporal Pulse Rate (60-100) 76 77 Pulse Location Monitor Monitor Respiratory Rate (12-18) 18 77 H Respiratory rate source Observation Observation Oxygen Delivery Method Room Air Room Air Blood Pressure (90/60-120/80) 136/102 H 134/88 H Blood Pressure Mean (mm Hg) 113 103 Source Monitor Monitor Position Sitting Sitting Blood Pressure Location Right Forearm Right Forearm Pain Scale: 0-10 Numeric Is Patient Pain Free? Yes Yes Wound Care Nurse 3 #8 RLE Post -Ulcer Cleansing Soap and Water -Foul Odor after Cleansing No -Primary Dressing Applied Other -Other Dressing epifix epifix left intact; unna applied -Primary Dressing Covered/Secured with Dry Gauze -Other Covering unna boot Right -Multi-Layered Wrap Application Unna Boot - Unna Boot - Right ($) Right ($) -Compression Wrap Unna Boot ($) ( single) Treatment Response Procedure Procedure Tolerated Well Tolerated Well WC - Visit Discharge Discharge Condition Stable Stable Ambulatory Status Ambulatory,Cane Ambulatory,Cane Transportation Private Auto Medication Reconcilliation completed & No provided to patient/care provider Assessment/Plan Assessment/Plan (1) Ulcer of right lower extremity with fat layer exposed: CODE(S): L97.912 - Non-pressure chronic ulcer of unspecified part of right lower leg with fat layer exposed (2) Venous ulcer of right leg: CODE(S): I83.019 - Varicose veins of right lower extremity with ulcer of unspecified site; L97.919 - Non-pressure chronic ulcer of unspecified part of right lower leg with unspecified severity (3) Nonhealing ulcer of right lower extremity: CODE(S): L97.919 - Non-pressure chronic ulcer of unspecified part of right lower leg with unspecified severity QUALIFIERS: Non-pressure ulcer stage: with fat layer exposed Q ualified Code(s): L97.912 - Non-pressure chronic ulcer of unspecified part of right lower leg with fat layer exposed (4) Venous insufficiency: (5) Lymphedema: CODE(S): I89.0 - Lymphedema, not elsewhere classified (6) Morbid obesity: CODE(S): E66.01 - Morbid (severe) obesity due to excess calories (7) Excoriation of right lower leg: CODE(S): S80.811A - Abrasion, right lower leg, initial encounter QUALIFIERS: Encounter type: initial encounter Qualified Code(s): S80.811A - Abrasion, right lower leg, initial encounter (8) Intertrigo: CODE(S): L30.4 - Erythema intertrigo PLAN: Right anterior leg ulcer remains healed. Given the duration of the wound and failure of the wound to respond to standard wound care, we have again applied for advanced skin substitutes (Puraply, Nushield, Apligraf). We were approved for Apligraf and EpiFix. Excisional debridement was performed today as annotated above. The patient's right lower extremity swelling and drainage have significantly improved with the use of compression (Unna boots and 3M wraps). EpiFix #2 applied to the posterior RLE ulcer (2 cm? size); 100% of the product was used. EpiFix was secured with Adaptic touch and Steri-Strips. The dressing was covered with gauze. Unna boot applied to the right lower extremity for compression. Unna boot applied to the right lower extremity. Patient was instructed to keep her right lower extremity wraps clean and dry. If anytime the wrap becomes too tight or uncomfortable, she is to elevate her leg. If she experiences numbness, tingling, or discoloration of the toes that does not subside with leg elevation, she is to notify the wound healing center and remove the wrap. Compression: Unna boot to right lower extremity. Lymphedema pumps should be utilized for 1 hour 3 times per day. If this is not well-tolerated, the patient should continue to use the pumps as long and as frequently as possible, working toward this goal. Off-loading: The patient has been instructed to avoid pressure and friction on the affected areas. Reposition every 2 hours at minimum. Avoid prolonged standing and/or dangling of legs. When seated, feet should be elevated at chest level. Frequent ambulation is encouraged. Diet: Patient encouraged to increase protein intake while taking caution to avoid high carbohydrate and/or sugar intake. Labs/cultures/imaging: The patient's wound cultures from 02/05/2021 were positive for 1+ Enterococcus faecalis, and rare MRSA. She was sent to the emergency department for IV antibiotic treatment. She received a dose of IV vancomycin 2000mg and was d ischarged on 10-day courses of doxycycline and Augmentin, which she has completed. Repeat cultures from 03/12/2021 were negative. Venous and arterial studies were previously ordered in September 2020, though the patient never had these done. These were again ordered in late December 2020, but have not yet been completed. I have advised the patient that this information would be extremely helpful. Given the patient's delayed healing, a wound biopsy was recommended on multiple occasions to evaluate for other potential causes for delayed healing; the patient refused. Follow-up: Consult with lymphedema specialist at [facility] on 01/14/2021 was cancelled by patient due to reported transportation issues. The importance of this consultation has been discussed at length with the patient. She reported she had rescheduled with the lymphedema specialist for May 2021, but she did not attend this appointment. Return to clinic on Monday for nurse visit. Return in 1 week for reevaluation. Patient was instructed to return sooner or report to the emergency room should symptoms worsen, or new symptoms arise. Note: [employer] speech recognition bus transportation manager software was used to create portions of this document. Sound-alike and misspelled words, as well as other bus transportation manager errors may be contained in the documentation.
[2021-06-15 13:23] VITALS: BP 147/86; PULSE 87; RESP 22; TEMP 36.1; BMI 49.0
[2021-06-18 08:26] VITALS: BP 153/90; PULSE 129; TEMP 35.4; BMI 49.0
--- NOTE | 2021-06-18 08:48 | PN.PCM_ITS ---
History of Present Illness Date of Service: 06/18/21 Chief Complaint: Ulcers of right lower extremity History of Wound: [facility] for evaluation and treatment of bilateral lower leg ulcers. The patient is [facility] treatment of prior lower extremity ulcers. She has a PMH significant for chronic lymphedema, venous insufficiency, atrial fibrillation (on Eliquis), morbid obesity, and hypothyroidism. She reported development of her posterior right lower leg ulcer in April 2019. She initially was using Manuka honey to this ulcer, but then started using Vaseline instead. She reported her anterior right lower extremity ulcer developed in August, and she had been applying Vaseline to this daily. Her anterior left lower extremity ulcer developed approximately 1 week prior to her initial January 2020 appt, and she had been applying Vaseline to this daily as well. She notes that approximately 4 to 6 weeks prior, the ulcer on her posterior right lower leg began increasing in soreness. She has lymphedema pumps at home, but had not been using these due to reported pain with use which is related to her ulcers. She does not use compression at home. She reports frequent dangling of her legs while seated at her computer for work. She does not frequently elevate her feet when seated. The patient denied any fever, chills, nausea, vomiting, or diarrhea on initial evaluation. She denied any increasing redness or swelling of the affected area at that time as well. She did note foul-smelling drainage from her right lower extremity. She had not been on any recent antibiotics prior to evaluation. She reported having lab work done approximately 6 weeks prior; these records were requested for review multiple times but never obtained. Lab work was ordered and completed in February 2020 and was significant for the following: CBCD: RBC 3.83 (L), hemoglobin 11.3 (L), hematocrit 34.8 (L), platelets 143 (L) ESR: 93 (H) CMP: Albumin 3.0 (L) CRP: 111 (H) Prealbumin 18.6 (L) She had lower extremity arterial studies completed 05/16/16 which showed relatively normal arterial perfusion to ankle level bilaterally. Triphasic waveforms were noted at ankle level bilaterally. Resting ankle-brachial indices were bilaterally normal. The right digital-brachial index is normal, consistent with normal arterial perfusion at distal, small-vessel level in the right lower extremity. The left digital-brachial index is mildly diminished, suggesting the presence of mild, distal, small-vessel arterial occlusive disease in the left lower extremity. Venous and arterial studies were ordered on 09/11/2020, and the patient was scheduled for an appointment in September for these tests. However the tests were never completed. The patient has continually expressed reluctance regarding wound work-up, and noncompliance with orders. Wound cultures collected on 01/03/2020 were positive for 3+ Aeromonas hydrophilia/caviae, 2+ Citrobacter braakii, 1+ Proteus mirabilis, rare Staphylococus aureus, anaerobic cocci, actinomyces odontolyticus, Bacteroides fragilis; beta-lactamase positive. She completed courses of Levaquin and Augmentin. Weeks later, she developed redness and warmth of a localized lymphedema mass of her right medial thigh; this resolved following a 14-day course of Levaquin and Augmentin. She has continued to have fluctuating redness and warmth of this right medial thigh lymphedema mass. She has completed several courses of antibiotics. Keflex and Levaquin have been of benefit. Doxycycline was not felt to be of significant benefit. A referral to a lymphedema specialist at the [facility] was made, and the importance of scheduling this appointment was discussed with the patient. She has not yet scheduled this appointment. Several conversations have been had with the patient regarding her need for compression and lymphedema management in order for her wounds to heal. She refuses compression. She is noncompliant with elevating her legs. She states she is unable to use her lymphedema pumps at this time due to the size of her legs. Since January 2020, several wound care treatments have been utilized, including Aquacel, Aquacel Ag, Devika. She has completed several applications of advanced skin substitutes (Apligraf, Puraply, and Nushield). Progress of Wound: Patient has had worsening of her wound size and appearance in recent weeks. She has had copious amounts of clear drainage from her right lower extremity, particularly from the anterior RLE. She has severe excoriation of the anterior RLE, as well as new areas of ulceration. She reports she has been changing her super sorb dressings approximately 4 times daily, and they have been saturated when changed. She is using Aquacel Ag to her right lower extremity anterior and posterior ulcers. She again states that she has not been using her lymphedema pumps often, but has been trying to use them more. She does not elevate her leg regularly. She does not use compression. She has not rescheduled her appointment with the lymphedema specialist at the [facility]. She expresses reluctance about lymphedema surgery, stating she knows people who have had surgery and has had numerous complications, as well as healthcare providers that recommend exhausting conservative treatment efforts prior to consideration of surgery. The patient's wound cultures from 02/05/2021 were positive for 1+ Enterococcus faecalis, and rare MRSA. She was sent to the emergency department for IV antibiotic treatment. She received a dose of IV vancomycin 2000mg and was discharged on 10-day courses of doxycycline and Augmentin, which she has completed. Hospital labs were as follows: CBCD: Unremarkable CMP: Unremarkable Lactic acid: Normal INR: Normal The patient was seen by Dr. Desai on 02/16/2021 for [facility]. Aquacel Ag was continued, and the patient was started on Unna boots for compression and treatment of right lower extremity excoriation. Progress of Wound: EpiFix was well tolerated. Compliant with Unna boot. Her wound in improved in size and appearance today. The patient denies fever, chills, general malaise, or poor appetite. The patient has not had increased redness, swelling, or purulent/malodorous drainage from affected area. She received her CircAids, but is concerned these are too small. States she was unable to apply CircAid to LLE. Didn't attempt RLE due to Unna boot. Objective Data Objective Data Vital Signs: Vital Signs Temp Pulse Resp BP 95.8 F L 129 H 22 H 153/90 H 06/18/21 08:26 06/18/21 08:26 06/15/21 13:23 06/18/21 08:26 Oxygen Delivery Method Room Air Body Mass Index (BMI) 49.0 Charges/Coding Procedures Integumentary 150xxx-152xx: 00246 Skin sub graft trnk/arm/leg Physical Exam Const alert and no apparent distress General Appearance: cooperative, comfortable and well kempt Nutritional Appearance: morbidly obese HEENT Head and Scalp: normocephalic and atraumatic Neck supple Lymph Lymphatic: lymphedema severe (worse in RLE) Resp normal respiratory effort Cardio Peripheral Pulses: dorsalis pedis pulses present right 2+ Extremity normal capillary refill and no joint enlargement General Extremity: edema right lower extremity trace; Negative for clubbing or cyanosis Skin Rashes: rashes noted distal RLE Narrative: Right lower extremity erythema and excoriation is improved, though still present to a lesser degree excoriation red dry nontender and mild Wounds: wounds noted drainage serous, No malodorous, no odor and surrounding erythema Wound Narrative: Anterior RLE ulcer remains healed. There is mild erythema of the right anterior leg region. Dry/scaly skin has resolved. Posterior RLE ulcer with moderate amount of slough and devitalized tissue present. Mild periulcer erythema present. No periulcer warmth. No tunneling, undermining, or probing to bone. Neuro oriented x3, moves all extremities and no focal motor deficits Psych mental status grossly normal, cooperative and affect normal Debridement Note Debridement Note Wound debrided: posterior RLE Laterality: Right Type of Debridement: Excisional debridement Anesthesia Used: 4% Lidocaine Solution and Cetacaine Depth: in the subcutaneous layer Percentage of wound debrided: 100 Instrument Used: 3mm curette Tissue Removed: Slough and devitalized tissue Severity: Fat Layer Exposed Amount of bleeding with debridement: Mild Bleeding Controlled with: Pressure Patient tolerated procedure: Patient tolerated procedure well Post-Debridement Measurements and Additional Note: Post-Debridement Measurements/Treatment - Nurse 1 - General Ulcer Assessment Start: 06/04/21 09:07 Freq: Status: Active Protocol: SAL Activity Type Activity Date Activity User E-Sign Co-Sign Detail Recorded Client Recorded Date Recorded By Document 06/04/21 09:07 [facility] [id number] 06/04/21 09:09 [facility] Document 06/08/21 13:25 [facility] [id number] 06/08/21 13:27 [facility] Document 06/11/21 07:56 AK [id number] 06/11/21 08:21 AK Document 06/15/21 13:23 DL [id number] 06/15/21 13:30 DL Document 06/18/21 08:26 KR [id number] 06/18/21 08:29 KR 06/04/21 06/08/21 06/11/21 09:07 13:25 07:56 - Today's Visit Information Type of service Follow-up Visit Nurse-only Follow-up Visit (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 (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/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 ) ) Arrival Mode Ambulatory,Cane Ambulatory,Cane Ambulatory Transfer Assistance None None Patient Identification Verified (Name & Yes Yes Yes ) Patient Requires Transmission-Based No No No Precautions Safety Precautions NA Height and Weight Body Mass Index (BMI) 49.0 49.0 49.0 BMI Classification Obese Obese Obese Vital Signs Temperature (97.8 F-99.1 F) 96 F L 96.9 F L 96.3 F L Temperature Source Temporal Temporal Temporal Pulse Rate (60-100) 76 77 Pulse Location Monitor Monitor Respiratory Rate (12-18) 18 77 H Respiratory rate source Observation Observation Oxygen Delivery Method Room Air Room Air Blood Pressure (90/60-120/80) 136/102 H 134/88 H Blood Pressure Mean (mm Hg) 113 103 Source Monitor Monitor Position Sitting Sitting Blood Pressure Location Right Forearm Right Forearm History Since Last Visit- (Skip if this is Patient's initial visit) Have you changed medications since your No No last visit? Any new allergies or adverse reactions No No No Had a fall/change in ADL's that may No No No increase risk of falls Signs or symptoms of abuse and/or No No No neglect since last visit Have you been in the hospital since your No No No last visit? Has dressing in place as prescribed Yes Yes Yes Has compression in place as prescribed Yes Yes Yes Has offloadiing in place as prescribed N/A N/A N/A Experienced any changes in pain level or No No No management Left Footwear Regular Shoe Regular Shoe Regular Shoe Right Footwear Regular Shoe Regular Shoe Regular Shoe Pain Scale: 0-10 Numeric Is Patient Pain Free? 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 ) Arrival Mode Ambulatory Ambulatory Transfer Assistance None Patient Identification Verified (Name & Yes Yes ) Patient Requires Transmission-Based No Precautions Safety Precautions Height and Weight Body Mass Index (BMI) 49.0 49.0 BMI Classification Obese Obese Vital Signs Temperature (97.8 F-99.1 F) 96.9 F L 95.8 F L Temperature Source Temporal Temporal Pulse Rate (60-100) 87 129 H Pulse Location Monitor Monitor Respiratory Rate (12-18) 22 H Respiratory rate source Oxygen Delivery Method Blood Pressure (90/60-120/80) 147/86 H 153/90 H Blood Pressure Mean (mm Hg) 106 111 Source Monitor Monitor Position Sitting Blood Pressure Location Right Arm History Since Last Visit- (Skip if this is Patient's initial visit) Have you changed medications since your No No last visit? Any new allergies or adverse reactions No No Had a fall/change in ADL's that may No No increase risk of falls Signs or symptoms of abuse and/or No No neglect since last visit Have you been in the hospital since your No No last visit? Has dressing in place as prescribed Yes Yes Has compression in place as prescribed Yes Yes Has offloadiing in place as prescribed N/A N/A Experienced any changes in pain level or No No management Left Footwear Regular Shoe Right Footwear Regular Shoe Pain Scale: 0-10 Numeric Is Patient Pain Free? Yes Yes WC - Nurse 1 - General Ulcer Measurement Start: 06/04/21 09:07 Freq: Status: Active Protocol: Activity Type Activity Date Activity User E-Sign Co-Sign Detail Recorded Client Recorded Date Recorded By Document 06/04/21 09:07 [facility] [id number] 06/04/21 09:09 [facility] Document 06/11/21 07:56 AK [id number] 06/11/21 08:21 AK Document 06/15/21 13:23 DL [id number] 06/15/21 13:30 DL Document 06/18/21 08:26 KR [id number] 06/18/21 08:29 KR 06/04/21 06/11/21 06/15/21 09:07 07:56 13:23 Wound Center Nurse 1 #8 RLE Post -Combined with other wound No -Current Size (cm) - Length 2.5 -Current Size (cm) - Width 1 -Current Size (cm) - Depth 0.1 -Total Square Cm 2.5 -Photo Taken No -Epithelialization Small 1-33% -Tunneling No -Undermining/Tunneling No -Circular Undermining No -Change in Wound Grade/Stage No -Exudate Amt Medium Medium Small -Exudate Type Serosanguineous Serosanguineous Serosanguineous -Wound Margin Distinct, Distinct, Outline Outline Attached Attached -Granulation Amt Large (67-100%) -Granulation Quality Red -Slough/Fibrin Yes -Necrosis Amt Small (1-33%) Small (1-33%) -Necrotic Tissue Type Adherent Slough Adherent Slough -Structure Exposed N/A -Texture (Irene-wound Skin Appearance) Assessed, No Abnormality, Scarring Scarring Assessed -Moisture (Irene-wound Skin Appearance) Assessed No Abnormality, No Abnormality Assessed -Color (Irene-wound Skin Appearance) Assessed No Abnormality, Hemosiderin Assessed Staining -Temperature (Irene-wound Skin No Abnormality No Abnormality No Abnormality Appearance) (Pt Warm) (Pt Warm) (Pt Warm) -Tenderness on Palpation (Irene-wound No Yes No Skin Appearance) -Ulcer Cleansing Soap and Water Soap and Water Soap and Water -Foul Odor after Cleansing No No No -Anesthetic Used 5% Lidocaine 4% Lidocaine Gel Solution -Wound Comment(s) Epifix intact. Lower Limb Edema Present Yes Right Calf (cm) 66.6 64 65.6 Right Ankle (cm) 28.9 26 31 Left Calf (cm) 69.6 Left Ankle (cm) 33.4 06/18/21 08:26 Wound Center Nurse 1 #8 RLE Post -Combined with other wound -Current Size (cm) - Length 2.2 -Current Size (cm) - Width 1 -Current Size (cm) - Depth 0.2 -Total Square Cm 2.2 -Photo Taken -Epithelialization -Tunneling -Undermining/Tunneling -Circular Undermining -Change in Wound Grade/Stage -Exudate Amt Small -Exudate Type Serosanguineous -Wound Margin Distinct, Outline Attached -Granulation Amt Medium (34-66%) -Granulation Quality [place] -Slough/Fibrin -Necrosis Amt None Present (0 %) -Necrotic Tissue Type -Structure Exposed -Texture (Irene-wound Skin Appearance) Assessed, Scarring -Moisture (Irene-wound Skin Appearance) Assessed,Dry/ Scaly -Color (Irene-wound Skin Appearance) No Abnormality, Assessed -Temperature (Irene-wound Skin No Abnormality Appearance) (Pt Warm) -Tenderness on Palpation (Irene-wound No Skin Appearance) -Ulcer Cleansing Soap and Water -Foul Odor after Cleansing No -Anesthetic Used 4% Lidocaine Solution,5% Lidocaine Gel -Wound Comment(s) Lower Limb Edema Present Right Calf (cm) 68 Right Ankle (cm) 32.2 Left Calf (cm) Left Ankle (cm) WC - Nurse 2 - General Ulcer CM Notes Start: 06/04/21 09:07 Freq: Status: Active Protocol: Activity Type Activity Date Activity User E-Sign Co-Sign Detail Recorded Client Recorded Date Recorded By Document 06/04/21 09:28 PL Desktop 06/04/21 09:35 PL Document 06/11/21 08:47 PL Desktop 06/11/21 08:48 PL 06/04/21 06/11/21 09:28 08:47 Wound Center Nurse 2 #8 RLE Post -Time 08:24 08:25 -Correct Patient Yes Yes -Correct Side, Site, Position Yes Yes -Correct Procedure Yes Yes -Procedure Performed Yes Yes -Type of Procedure Debridement Debridement -Clinical Debridement Subcutaneous Subcutaneous -Tissue Removed Subcutaneous Subcutaneous -Post Debridement (cm) - Length 2.9 2.4 -Post Debridement (cm) - Width 1.9 1.3 -Post Debridement (cm) - Depth 0.1 0.1 -Total Square (Post) (cm) 5.51 3.12 -Area of Debridement (cm) - Length 2.9 2.4 -Area of Debridement (cm) - Width 1.9 1.3 -Total Square (Area) (cm) 5.51 3.12 -Tunneling No No -Undermining/Tunneling No No -Circular Undermining No No -Wound/Ulcer Outcome Not Healed Not Healed -Ulcer Cleansing Rinsed/ Rinsed/ Irrigated with Irrigated with Saline Saline -Foul Odor after Cleansing No No -Bioengineered Tissue Yes Yes -Type of Bioengineered Tissue Epifix Epifix -Expiration Date 02/01/26 02/01/26 -Product Lot Number [id number] -Percent Used 100 100 -Bleeding Controlled with Pressure Pressure -Treatment Response Procedure Procedure Tolerated Well Tolerated Well -Debridement - Subq, 1st 20sq cm No No -Apply Skin Sub - 1st 25 sq cm - Legs 1 1 -Epifix (per sq cm) 4 4 Pain Scale: 0-10 Numeric Is Patient Pain Free? Yes Yes WC - Nurse 3 - General Ulcer D/C NN Start: 06/04/21 09:07 Freq: Status: Active Protocol: Activity Type Activity Date Activity User E-Sign Co-Sign Detail Recorded Client Recorded Date Recorded By Document 06/04/21 09:07 [facility] [id number] 06/04/21 09:09 [facility] Document 06/08/21 13:25 [facility] [id number] 06/08/21 13:27 [facility] Document 06/11/21 08:42 AK [id number] 06/11/21 08:44 AK Document 06/15/21 13:23 DL [id number] 06/15/21 13:30 DL 06/04/21 06/08/21 06/11/21 09:07 13:25 08:42 Vital Signs Temperature (97.8 F-99.1 F) 96 F L 96.9 F L Temperature Source Temporal Temporal Pulse Rate (60-100) 76 77 Pulse Location Monitor Monitor Respiratory Rate (12-18) 18 77 H Respiratory rate source Observation Observation Oxygen Delivery Method Room Air Room Air Blood Pressure (90/60-120/80) 136/102 H 134/88 H Blood Pressure Mean (mm Hg) 113 103 Source Monitor Monitor Position Sitting Sitting Blood Pressure Location Right Forearm Right Forearm Pain Scale: 0-10 Numeric Is Patient Pain Free? Yes Yes Yes Wound Care Nurse 3 #8 RLE Post -Ulcer Cleansing Soap and Water -Foul Odor after Cleansing No No -Negative Pressure Wound Therapy N/A -Primary Dressing Applied Other -Other Dressing epifix epifix left intact; unna applied -Primary Dressing Covered/Secured with Dry Gauze Dry Gauze, Secured with Tape -Other Covering unna boot Right -Multi-Layered Wrap Application Unna Boot - Unna Boot - Unna Boot - Right ($) Right ($) Right ($) -Compression Wrap Unna Boot ($) ( single) Treatment Response Procedure Procedure Tolerated Well Tolerated Well WC - Visit Discharge Discharge Condition Stable Stable Stable Ambulatory Status Ambulatory,Cane Ambulatory,Cane Ambulatory,Cane Transportation Private Auto Private Auto Medication Reconcilliation completed & No Yes provided to patient/care provider Clinical Summary of Care Provided Yes 06/15/21 13:23 Vital Signs Temperature (97.8 F-99.1 F) 96.9 F L Temperature Source Temporal Pulse Rate (60-100) 87 Pulse Location Monitor Respiratory Rate (12-18) 22 H Respiratory rate source Oxygen Delivery Method Blood Pressure (90/60-120/80) 147/86 H Blood Pressure Mean (mm Hg) 106 Source Monitor Position Blood Pressure Location Pain Scale: 0-10 Numeric Is Patient Pain Free? Yes Wound Care Nurse 3 #8 RLE Post -Ulcer Cleansing Soap and Water -Foul Odor after Cleansing No -Negative Pressure Wound Therapy -Primary Dressing Applied -Other Dressing Epifix intact -Primary Dressing Covered/Secured with -Other Covering Right -Multi-Layered Wrap Application Unna Boot - Right ($) -Compression Wrap Treatment Response Procedure Tolerated Well WC - Visit Discharge Discharge Condition Stable Ambulatory Status Ambulatory,Cane Transportation Private Auto Medication Reconcilliation completed & provided to patient/care provider Clinical Summary of Care Provided Assessment/Plan Assessment/Plan (1) Ulcer of right lower extremity with fat layer exposed: CODE(S): L97.912 - Non-pressure chronic ulcer of unspecified part of right lower leg with fat layer exposed (2) Venous ulcer of right leg: CODE(S): I83.019 - Varicose veins of right lower extremity with ulcer of unspecified site; L97.919 - Non-pressure chronic ulcer of unspecified part of right lower leg with unspecified severity (3) Nonhealing ulcer of right lower extremity: CODE(S): L97.919 - Non-pressure chronic ulcer of unspecified part of right lower leg with unspecified severity QUALIFIERS: Non-pressure ulcer stage: with fat layer exposed Qualified Code(s): L97.912 - Non-pressure chronic ulcer of unspecified part of right lower leg with fat layer exposed (4) Venous insufficiency: (5) Lymphedema: CODE(S): I89.0 - Lymphedema, not elsewhere classified (6) Morbid obesity: CODE(S): E66.01 - Morbid (severe) obesity due to excess calories (7) Excoriation of right lower leg: CODE(S): S80.811A - Abrasion, right lower leg, initial encounter QUALIFIERS: Encounter type: initial encounter Qualified Code(s): S80.811A - Abrasion, right lower leg, initial encounter PLAN: Right anterior leg ulcer remains healed. Given the duration of the wound and failure of the wound (posterior RLE) to respond to standard wound care, we have again applied for advanced skin substitutes (Puraply, Nushield, Apligraf). We were approved for Apligraf and EpiFix. Excisional debridement was performed today as annotated above. The patient's right lower extremity swelling and drainage have significantly improved with the use of compression (Unna boots and 3M wraps). EpiFix #3 applied to the posterior RLE ulcer (1.8 cm? disc); 100% of the product was used. A small amount of hydrogel was applied atop the EpiFix. EpiFix was secured with Adaptic touch and Steri-Strips. The dressing was covered with gauze. Unna boot applied to the right lower extremity for compression. Patient was instructed to keep her right lower extremity wraps clean and dry. If at anytime the wrap becomes too tight or uncomfortable, she is to elevate her leg. If she experiences numbness, tingling, or discoloration of the toes that does not subside with leg elevation, she is to notify the wound healing center and remove the wrap. Compression: Unna boot to right lower extremity. Lymphedema pumps should be utilized for 1 hour 3 times per day. If this is not well-tolerated, the patient should continue to use the pumps as long and as frequently as possible, working toward this goal. Off-loading: The patient has been instructed to avoid pressure and friction on the affected areas. Reposition every 2 hours at minimum. Avoid prolonged standing and/or dangling of legs. When seated, feet should be elevated at chest level. Frequent ambulation is encouraged. Diet: Patient encouraged to increase protein intake while taking caution to avoid high carbohydrate and/or sugar intake. Labs/cultures/imaging: The patient's wound cultures from 02/05/2021 were positive for 1+ Enterococcus faecalis, and rare MRSA. She was sent to the emergency department for IV antibiotic treatment. She received a dose of IV vancomycin 2000mg and was discharged on 10-day courses of doxycycline and Augmentin, which she has completed. Repeat cultures from 03/12/2021 were negative. Venous and arterial studies were previously ordered in September 2020, though the patient never had these done. These were again ordered in late December 2020, but were not completed. Return to clinic on Monday for nurse visit. Return in 1 week for reevaluation. Bring CircAid's to next appointment. Patient was instructed to return sooner or report to the emergency room should symptoms worsen, or new symptoms arise. Note: [employer] speech recognition whipper software was used to create portions of this document. Sound-alike and misspelled [id number], as [id number] other [email or web address] [id number] be [id number] in the [id number]
[2021-06-22 13:16] VITALS: BP 142/98; PULSE 88; RESP 18; TEMP 36.3; BMI 49.0
[2021-06-25 08:26] VITALS: BP 186/91; PULSE 85; TEMP 36.3; BMI 49.0
--- NOTE | 2021-06-25 09:11 | PN.PCM_ITS ---
History of Present Illness Date of Service: 06/25/21 Chief Complaint: Ulcers of right lower extremity History of Wound: [facility] for evaluation and treatment of bilateral lower leg ulcers. The patient is [facility] treatment of prior lower extremity ulcers. She has a PMH significant for chronic lymphedema, venous insufficiency, atrial fibrillation (on Eliquis), morbid obesity, and hypothyroidism. She reported development of her posterior right lower leg ulcer in April 2019. She initially was using Manuka honey to this ulcer, but then started using Vaseline instead. She reported her anterior right lower extremity ulcer developed in August, and she had been applying Vaseline to this daily. Her anterior left lower extremity ulcer developed approximately 1 week prior to her initial January 2020 appt, and she had been applying Vaseline to this daily as well. She notes that approximately 4 to 6 weeks prior, the ulcer on her posterior right lower leg began increasing in soreness. She has lymphedema pumps at home, but had not been using these due to reported pain with use which is related to her ulcers. She does not use compression at home. She reports frequent dangling of her legs while seated at her computer for work. She does not frequently elevate her feet when seated. The patient denied any fever, chills, nausea, vomiting, or diarrhea on initial evaluation. She denied any increasing redness or swelling of the affected area at that time as well. She did note foul-smelling drainage from her right lower extremity. She had not been on any recent antibiotics prior to evaluation. She reported having lab work done approximately 6 weeks prior; these records were requested for review multiple times but never obtained. Lab work was ordered and completed in February 2020 and was significant for the following: CBCD: RBC 3.83 (L), hemoglobin 11.3 (L), hematocrit 34.8 (L), platelets 143 (L) ESR: 93 (H) CMP: Albumin 3.0 (L) CRP: 111 (H) Prealbumin 18.6 (L) She had lower extremity arterial studies completed 05/16/16 which showed relatively normal arterial perfusion to ankle level bilaterally. Triphasic waveforms were noted at ankle level bilaterally. Resting ankle-brachial indices were bilaterally normal. The right digital-brachial index is normal, consistent with normal arterial perfusion at distal, small-vessel level in the right lower extremity. The left digital-brachial index is mildly diminished, suggesting the presence of mild, distal, small-vessel arterial occlusive disease in the left lower extremity. Venous and arterial studies were ordered on 09/11/2020, and the patient was scheduled for an appointment in September for these tests. However the tests were never completed. The patient has continually expressed reluctance regarding wound work-up, and noncompliance with orders. Wound cultures collected on 01/03/2020 were positive for 3+ Aeromonas hydrophilia/caviae, 2+ Citrobacter braakii, 1+ Proteus mirabilis, rare Staphylococus aureus, anaerobic cocci, actinomyces odontolyticus, Bacteroides fragilis; beta-lactamase positive. She completed courses of Levaquin and Augmentin. Weeks later, she developed redness and warmth of a localized lymphedema mass of her right medial thigh; this resolved following a 14-day course of Levaquin and Augmentin. She has continued to have fluctuating redness and warmth of this right medial thigh lymphedema mass. She has completed several courses of antibiotics. Keflex and Levaquin have been of benefit. Doxycycline was not felt to be of significant benefit. A referral to a lymphedema specialist at the [facility] was made, and the importance of scheduling this appointment was discussed with the patient. She has not yet scheduled this appointment. Several conversations have been had with the patient regarding her need for compression and lymphedema management in order for her wounds to heal. She refuses compression. She is noncompliant with elevating her legs. She states she is unable to use her lymphedema pumps at this time due to the size of her legs. Since January 2020, several wound care treatments have been utilized, including Aquacel, Aquacel Ag, Devika. She has completed several applications of advanced skin substitutes (Apligraf, Puraply, and Nushield). Progress of Wound: Patient has had worsening of her wound size and appearance in recent weeks. She has had copious amounts of clear drainage from her right lower extremity, particularly from the anterior RLE. She has severe excoriation of the anterior RLE, as well as new areas of ulceration. She reports she has been changing her super sorb dressings approximately 4 times daily, and they have been saturated when changed. She is using Aquacel Ag to her right lower extremity anterior and posterior ulcers. She again states that she has not been using her lymphedema pumps often, but has been trying to use them more. She does not elevate her leg regularly. She does not use compression. She has not rescheduled her appointment with the lymphedema specialist at the [facility]. She expresses reluctance about lymphedema surgery, stating she knows people who have had surgery and has had numerous complications, as well as healthcare providers that recommend exhausting conservative treatment efforts prior to consideration of surgery. The patient's wound cultures from 02/05/2021 were positive for 1+ Enterococcus faecalis, and rare MRSA. She was sent to the emergency department for IV antibiotic treatment. She received a dose of IV vancomycin 2000mg and was discharged on 10-day courses of doxycycline and Augmentin, which she has completed. Hospital labs were as follows: CBCD: Unremarkable CMP: Unremarkable Lactic acid: Normal INR: Normal The patient was seen by Dr. Desai on 02/16/2021 for [facility]. Aquacel Ag was continued, and the patient was started on Unna boots for compression and treatment of right lower extremity excoriation. Progress of Wound: EpiFix was well tolerated. Compliant with Unna boot. Her wound in improved in size and appearance today. The patient denies fever, chills, general malaise, or poor appetite. The patient has not had increased redness, swelling, or purulent/malodorous drainage from affected area. She received her CircAids, but is concerned these are too small. She did not bring these with her today. Her intertrigo rash of the right popliteal fossa has worsened in the past week. She tried using clotrimazole betamethasone ointment, but this caused burning. She then began applying Vaseline to the rash. Objective Data Objective Data Vital Signs: Vital Signs Temp Pulse Resp BP 97.4 F L 85 18 186/91 H 06/25/21 08:26 06/25/21 08:26 06/22/21 13:16 06/25/21 08:26 Oxygen Delivery Method Room Air Body Mass Index (BMI) 49.0 Charges/Coding Procedures Integumentary 150xxx-152xx: 69323 Skin sub graft trnk/arm/leg Physical Exam Const alert and no apparent distress General Appearance: cooperative, comfortable and well kempt Nutritional Appearance: morbidly obese HEENT Head and Scalp: normocephalic and atraumatic Neck supple Lymph Lymphatic: lymphedema severe (worse in RLE) Resp normal respiratory effort Cardio Peripheral Pulses: dorsalis pedis pulses present right 2+ Extremity normal capillary refill and no joint enlargement General Extremity: edema right lower extremity trace; Negative for clubbing or cyanosis Skin Rashes: rashes noted distal RLE Narrative: Right lower extremity erythema and excoriation is improved, though still present to a lesser degree excoriation red dry nontender and mild, Right popliteal fossa Narrative: Intertriginous rash with scalloped edges and excoriation. Popliteal fossa is moist and very erythematous. Tender to palpation. Wounds: wounds noted drainage serous, No malodorous, no odor and surrounding erythema Wound Narrative: Anterior RLE ulcer remains healed. There is mild erythema of the right anterior leg region. Dry/scaly skin has resolved. Posterior RLE ulcer with moderate amount of slough and devitalized tissue present. Subcutaneous layer exposed. No tunneling, undermining, or probing to bone. Mild periulcer erythema present. No periulcer warmth. No purulent or malodorous drainage. Mild tenderness to palpation. Neuro oriented x3, moves all extremities and no focal motor deficits Psych mental status grossly normal, cooperative and affect normal Debridement Note Debridement Note Wound debrided: Posterior RLE Laterality: Right Type of Debridement: Excisional debridement Anesthesia Used: 4% Lidocaine Solution Depth: in the subcutaneous layer Percentage of wound debrided: 100 Instrument Used: 3mm curette Tissue Removed: Slough and devitalized tissue Severity: Fat Layer Exposed Amount of bleeding with debridement: Mild Bleeding Controlled with: Pressure Patient tolerated procedure: Patient tolerated procedure well Post-Debridement Measurements and Additional Note: Post-Debridement Measurements/Treatment - Nurse 1 - General Ulcer Assessment Start: 06/04/21 09:07 Freq: Status: Active Protocol: SAL Activity Type Activity Date Activity User E-Sign Co-Sign Detail Recorded Client Recorded Date Recorded By Document 06/04/21 09:07 [facility] [id number] 06/04/21 09:09 [facility] Document 06/08/21 13:25 BM [id number] 06/08/21 13:27 BM Document 06/11/21 07:56 [place] [id number] 06/11/21 08:21 [place] Document 06/15/21 13:23 DL [id number] 06/15/21 13:30 DL Document 06/18/21 08:26 KR [id number] 06/18/21 08:29 KR Document 06/22/21 13:16 BMF [id number] 06/22/21 13:20 BMF Document 06/25/21 08:26 KR [id number] 06/25/21 08:29 KR 06/04/21 06/08/21 06/11/21 09:07 13:25 07:56 WC - Today's Visit Information Type of service Follow-up Visit Nurse-only Follow-up Visit (Physician/CRAP SHOOTER Visit (Physician/CRAP SHOOTER ) ) Arrival Mode Ambulatory,Cane Ambulatory,Cane Ambulatory Transfer Assistance None None Patient Identification Verified (Name & Yes Yes Yes ) Patient Requires Transmission-Based No No No Precautions Safety Precautions NA Height and Weight Body Mass Index (BMI) 49.0 49.0 49.0 BMI Classification Obese Obese Obese Vital Signs Temperature (97.8 F-99.1 F) 96 F L 96.9 F L 96.3 F L Temperature Source Temporal Temporal Temporal Pulse Rate (60-100) 76 77 Pulse Location Monitor Monitor Respiratory Rate (12-18) 18 77 H Respiratory rate source Observation Observation Oxygen Delivery Method Room Air Room Air Blood Pressure (90/60-120/80) 136/102 H 134/88 H Blood Pressure Mean (mm Hg) 113 103 Source Monitor Monitor Position Sitting Sitting Blood Pressure Location Right Forearm Right Forearm History Since Last Visit- (Skip if this is Patient's initial visit) Have you changed medications since your No No last visit? Any new allergies or adverse reactions No No No Had a fall/change in ADL's that may No No No increase risk of falls Signs or symptoms of abuse and/or No No No neglect since last visit Have you been in the hospital since your No No No last visit? Has dressing in place as prescribed Yes Yes Yes Has compression in place as prescribed Yes Yes Yes Has offloadiing in place as prescribed N/A N/A N/A Experienced any changes in pain level or No No No management Left Footwear Regular Shoe Regular Shoe Regular Shoe Right Footwear Regular Shoe Regular Shoe Regular Shoe Pain Scale: 0-10 Numeric Is Patient Pain Free? Yes Yes Yes 06/15/21 06/18/21 06/22/21 13:23 08:26 13:16 WC - Today's Visit Information Type of service Nurse-only Follow-up Visit Nurse-only Visit (Physician/CRAP SHOOTER Visit ) Arrival Mode Ambulatory Ambulatory Ambulatory Transfer Assistance None None Patient Identification Verified (Name & Yes Yes Yes ) Patient Requires Transmission-Based No Precautions Safety Precautions Height and Weight Body Mass Index (BMI) 49.0 49.0 49.0 BMI Classification Obese Obese Obese Vital Signs Temperature (97.8 F-99.1 F) 96.9 F L 95.8 F L 97.3 F L Temperature Source Temporal Temporal Temporal Pulse Rate (60-100) 87 129 H 88 Pulse Location Monitor Monitor Monitor Respiratory Rate (12-18) 22 H 18 Respiratory rate source Observation Oxygen Delivery Method Room Air Blood Pressure (90/60-120/80) 147/86 H 153/90 H 142/98 H Blood Pressure Mean (mm Hg) 106 111 112 Source Monitor Monitor Monitor Position Sitting Sitting Blood Pressure Location Right Arm Left Forearm History Since Last Visit- (Skip if this is Patient's initial visit) Have you changed medications since your No No No last visit? Any new allergies or adverse reactions No No No Had a fall/change in ADL's that may No No No increase risk of falls Signs or symptoms of abuse and/or No No No neglect since last visit Have you been in the hospital since your No No No last visit? Has dressing in place as prescribed Yes Yes Yes Has compression in place as prescribed Yes Yes Yes Has offloadiing in place as prescribed N/A N/A N/A Experienced any changes in pain level or No No No management Left Footwear Regular Shoe Regular Shoe Right Footwear Regular Shoe Regular Shoe Pain Scale: 0-10 Numeric Is Patient Pain Free? Yes Yes Yes 06/25/21 08:26 - Today's Visit Information Type of service Follow-up Visit (Physician/CRAP SHOOTER ) Arrival Mode Ambulatory,Cane Transfer Assistance Patient Identification Verified (Name & Yes ) Patient Requires Transmission-Based Precautions Safety Precautions Height and Weight Body Mass Index (BMI) 49.0 BMI Classification Obese Vital Signs Temperature (97.8 F-99.1 F) 97.4 F L Temperature Source Temporal Pulse Rate (60-100) 85 Pulse Location Monitor Respiratory Rate (12-18) Respiratory rate source Oxygen Delivery Method Blood Pressure (90/60-120/80) 186/91 H Blood Pressure Mean (mm Hg) 122 Source Monitor Position Semi-Fowlers Blood Pressure Location Left Arm History Since Last Visit- (Skip if this is Patient's initial visit) Have you changed medications since your No last visit? Any new allergies or adverse reactions No Had a fall/change in ADL's that may No increase risk of falls Signs or symptoms of abuse and/or No neglect since last visit Have you been in the hospital since your No last visit? Has dressing in place as prescribed Yes Has compression in place as prescribed Yes Has offloadiing in place as prescribed N/A Experienced any changes in pain level or No management Left Footwear Regular Shoe Right Footwear Regular Shoe Pain Scale: 0-10 Numeric Is Patient Pain Free? Yes WC - Nurse 1 - General Ulcer Measurement Start: 06/04/21 09:07 Freq: Status: Active Protocol: Activity Type Activity Date Activity User E-Sign Co-Sign Detail Recorded Client Recorded Date Recorded By Document 06/04/21 09:07 [facility] [id number] 06/04/21 09:09 [facility] Document 06/11/21 07:56 [place] [id number] 06/11/21 08:21 AK Document 06/15/21 13:23 DL [id number] 06/15/21 13:30 DL Document 06/18/21 08:26 KR [id number] 06/18/21 08:29 KR Document 06/25/21 08:26 KR [id number] 06/25/21 08:29 KR 06/04/21 06/11/21 06/15/21 09:07 07:56 13:23 Wound Center Nurse 1 #8 RLE Post -Combined with other wound No -Current Size (cm) - Length 2.5 -Current Size (cm) - Width 1 -Current Size (cm) - Depth 0.1 -Total Square Cm 2.5 -Photo Taken No -Epithelialization Small 1-33% -Tunneling No -Undermining/Tunneling No -Circular Undermining No -Change in Wound Grade/Stage No -Exudate Amt Medium Medium Small -Exudate Type Serosanguineous Serosanguineous Serosanguineous -Wound Margin Distinct, Distinct, Outline Outline Attached Attached -Granulation Amt Large (67-100%) -Granulation Quality Red -Slough/Fibrin Yes -Necrosis Amt Small (1-33%) Small (1-33%) -Necrotic Tissue Type Adherent Slough Adherent Slough -Structure Exposed N/A -Texture (Irene-wound Skin Appearance) Assessed, No Abnormality, Scarring Scarring Assessed -Moisture (Irene-wound Skin Appearance) Assessed No Abnormality, No Abnormality Assessed -Color (Irene-wound Skin Appearance) Assessed No Abnormality, Hemosiderin Assessed Staining -Temperature (Irene-wound Skin No Abnormality No Abnormality No Abnormality Appearance) (Pt Warm) (Pt Warm) (Pt Warm) -Tenderness on Palpation (Irene-wound No Yes No Skin Appearance) -Ulcer Cleansing Soap and Water Soap and Water Soap and Water -Foul Odor after Cleansing No No No -Anesthetic Used 5% Lidocaine 4% Lidocaine Gel Solution -Wound Comment(s) Epifix intact. Lower Limb Edema Present Yes Right Calf (cm) 66.6 64 65.6 Right Ankle (cm) 28.9 26 31 Left Calf (cm) 69.6 Left Ankle (cm) 33.4 06/18/21 06/25/21 08:26 08:26 Wound Center Nurse 1 #8 RLE Post -Combined with other wound -Current Size (cm) - Length 2.2 2.6 -Current Size (cm) - Width 1 1 -Current Size (cm) - Depth 0.2 0.1 -Total Square Cm 2.2 2.6 -Photo Taken -Epithelialization -Tunneling -Undermining/Tunneling -Circular Undermining -Change in Wound Grade/Stage -Exudate Amt Small Small -Exudate Type Serosanguineous Serosanguineous -Wound Margin Distinct, Distinct, Outline Outline Attached Attached -Granulation Amt Medium (34-66%) Medium (34-66%) -Granulation Quality Mosses Mosses,Red -Slough/Fibrin -Necrosis Amt None Present (0 Small (1-33%) %) -Necrotic Tissue Type Adherent Slough -Structure Exposed -Texture (Irene-wound Skin Appearance) Assessed, Assessed, Scarring Scarring -Moisture (Irene-wound Skin Appearance) Assessed,Dry/ Assessed,Dry/ Scaly Scaly -Color (Irene-wound Skin Appearance) No Abnormality, No Abnormality, Assessed Assessed -Temperature (Irene-wound Skin No Abnormality No Abnormality Appearance) (Pt Warm) (Pt Warm) -Tenderness on Palpation (Irene-wound No No Skin Appearance) -Ulcer Cleansing Soap and Water Soap and Water -Foul Odor after Cleansing No No -Anesthetic Used 4% Lidocaine 4% Lidocaine Solution,5% Solution,5% Lidocaine Gel Lidocaine Gel -Wound Comment(s) Lower Limb Edema Present Right Calf (cm) 68 67.4 Right Ankle (cm) 32.2 30.5 Left Calf (cm) Left Ankle (cm) WC - Nurse 2 - General Ulcer CM Notes Start: 06/04/21 09:07 Freq: Status: Active Protocol: Activity Type Activity Date Activity User E-Sign Co-Sign Detail Recorded Client Recorded Date Recorded By Document 06/04/21 09:28 PL Desktop 06/04/21 09:35 PL Document 06/11/21 08:47 PL Desktop 06/11/21 08:48 PL Document 06/18/21 08:49 PL Desktop 06/18/21 08:50 PL 06/04/21 06/11/21 06/18/21 09:28 08:47 08:49 Wound Center Nurse 2 #8 RLE Post -Time 08:24 08:25 08:34 -Correct Patient Yes Yes Yes -Correct Side, Site, Position Yes Yes Yes -Correct Procedure Yes Yes Yes -Procedure Performed Yes Yes Yes -Type of Procedure Debridement Debridement Debridement -Clinical Debridement Subcutaneous Subcutaneous Subcutaneous -Tissue Removed Subcutaneous Subcutaneous Subcutaneous -Post Debridement (cm) - Length 2.9 2.4 2.2 -Post Debridement (cm) - Width 1.9 1.3 1.2 -Post Debridement (cm) - Depth 0.1 0.1 0.1 -Total Square (Post) (cm) 5.51 3.12 2.64 -Area of Debridement (cm) - Length 2.9 2.4 2.2 -Area of Debridement (cm) - Width 1.9 1.3 1.2 -Total Square (Area) (cm) 5.51 3.12 2.64 -Tunneling No No No -Undermining/Tunneling No No No -Circular Undermining No No No -Wound/Ulcer Outcome Not Healed Not Healed Not Healed -Ulcer Cleansing Rinsed/ Rinsed/ Rinsed/ Irrigated with Irrigated with Irrigated with Saline Saline Saline -Foul Odor after Cleansing No No No -Bioengineered Tissue Yes Yes Yes -Type of Bioengineered Tissue Epifix Epifix Epifix 18mm Disc -Expiration Date 02/01/26 02/01/26 -Product Lot Number [id number] -Percent Used 100 100 -Bleeding Controlled with Pressure Pressure Pressure -Treatment Response Procedure Procedure Procedure Tolerated Well Tolerated Well Tolerated Well -Debridement - Subq, 1st 20sq cm No No No -Apply Skin Sub - 1st 25 sq cm - Legs 1 1 1 -Epifix (per sq cm) 4 4 -Epifix 18mm Disc 3 Pain Scale: 0-10 Numeric Is Patient Pain Free? Yes Yes Yes WC - Nurse 3 - General Ulcer D/C NN Start: 06/04/21 09:07 Freq: Status: Active Protocol: Activity Type Activity Date Activity User E-Sign Co-Sign Detail Recorded Client Recorded Date Recorded By Document 06/04/21 09:07 [facility] [id number] 06/04/21 09:09 [facility] Document 06/08/21 13:25 BMF [id number] 06/08/21 13:27 BMF Document 06/11/21 08:42 AK [id number] 06/11/21 08:44 AK Document 06/15/21 13:23 DL [id number] 06/15/21 13:30 DL Document 06/18/21 08:53 KR [id number] 06/18/21 08:54 KR Document 06/22/21 13:16 BM [id number] 06/22/21 13:20 BMF 06/04/21 06/08/21 06/11/21 09:07 13:25 08:42 Vital Signs Temperature (97.8 F-99.1 F) 96 F L 96.9 F L Temperature Source Temporal Temporal Pulse Rate (60-100) 76 77 Pulse Location Monitor Monitor Respiratory Rate (12-18) 18 77 H Respiratory rate source Observation Observation Oxygen Delivery Method Room Air Room Air Blood Pressure (90/60-120/80) 136/102 H 134/88 H Blood Pressure Mean (mm Hg) 113 103 Source Monitor Monitor Position Sitting Sitting Blood Pressure Location Right Forearm Right Forearm Pain Scale: 0-10 Numeric Is Patient Pain Free? Yes Yes Yes Wound Care Nurse 3 #8 RLE Post -Ulcer Cleansing Soap and Water -Foul Odor after Cleansing No No -Negative Pressure Wound Therapy N/A -Primary Dressing Applied Other -Other Dressing epifix epifix left intact; unna applied -Primary Dressing Covered/Secured with Dry Gauze Dry Gauze, Secured with Tape -Other Covering unna boot Right -Multi-Layered Wrap Application Unna Boot - Unna Boot - Unna Boot - Right ($) Right ($) Right ($) -Compression Wrap Unna Boot ($) ( single) Treatment Response Procedure Procedure Tolerated Well Tolerated Well WC - Visit Discharge Discharge Condition Stable Stable Stable Ambulatory Status Ambulatory,Cane Ambulatory,Cane Ambulatory,Cane Transportation Private Auto Private Auto Medication Reconcilliation completed & No Yes provided to patient/care provider Clinical Summary of Care Provided Yes 06/15/21 06/18/21 06/22/21 13:23 08:53 13:16 Vital Signs Temperature (97.8 F-99.1 F) 96.9 F L 97.3 F L Temperature Source Temporal Temporal Pulse Rate (60-100) 87 88 Pulse Location Monitor Monitor Respiratory Rate (12-18) 22 H 18 Respiratory rate source Observation Oxygen Delivery Method Room Air Blood Pressure (90/60-120/80) 147/86 H 142/98 H Blood Pressure Mean (mm Hg) 106 112 Source Monitor Monitor Position Sitting Blood Pressure Location Left Forearm Pain Scale: 0-10 Numeric Is Patient Pain Free? Yes Yes Yes Wound Care Nurse 3 #8 RLE Post -Ulcer Cleansing Soap and Water Soap and Water -Foul Odor after Cleansing No No -Negative Pressure Wound Therapy -Primary Dressing Applied -Other Dressing Epifix intact epifix intact -Primary Dressing Covered/Secured with Dry Gauze -Other Covering unna boot Right -Multi-Layered Wrap Application Unna Boot - Unna Boot - Multi-Layer Right ($) Right ($) Comp - Right ($ ) -Compression Wrap Unna Boot ($) ( single) Treatment Response Procedure Procedure Tolerated Well Tolerated Well WC - Visit Discharge Discharge Condition Stable Stable Stable Ambulatory Status Ambulatory,Cane Ambulatory,Cane Ambulatory,Cane Transportation Private Auto Private Auto Private Auto Medication Reconcilliation completed & provided to patient/care provider Clinical Summary of Care Provided Assessment/Plan Assessment/Plan (1) Ulcer of right lower extremity with fat layer exposed: CODE(S): L97.912 - Non-pressure chronic ulcer of unspecified part of right lower leg with fat layer exposed (2) Venous ulcer of right leg: CODE(S): I83.019 - Varicose veins of right lower extremity with ulcer of unspecified site; L97.919 - Non-pressure chronic ulcer of unspecified part of right lower leg with unspecified severity (3) Nonhealing ulcer of right lower extremity: CODE(S): L97.919 - Non-pressure chronic ulcer of unspecified part of right lower leg with unspecified severity QUALIFIERS: Non-pressure ulcer stage: with fat layer exposed Qualified Code(s): L97.912 - Non-pressure chronic ulcer of unspecified part of right lower leg with fat layer exposed (4) Venous insufficiency: (5) Lymphedema: CODE(S): I89.0 - Lymphedema, not elsewhere classified (6) Morbid obesity: CODE(S): E66.01 - Morbid (severe) obesity due to excess calories (7) Excoriation of right lower leg: CODE(S): S80.811A - Abrasion, right lower leg, initial encounter QUALIFIERS: Encounter type: initial encounter Qualified Code(s): S80.811A - Abrasion, right lower leg, initial encounter (8) Intertrigo: CODE(S): L30.4 - Erythema intertrigo PLAN: Patient's intertriginous rash of the right popliteal fossa has worsened. She tried resuming clotrimazole betamethasone ointment, but this caused burning. She has been applying Vaseline to the rash, which she was instructed to discontinue. I will have her begin ketoconazole cream once daily to the right popliteal fossa. I will also have her begin nystatin powder 3 times daily to the right popliteal fossa to help keep the area dry. She was instructed on cleaning this area with antibacterial soap and water and ensuring that the area stays dry. She may use clean ABD pads or a dry washcloth to tuck into the right popliteal fossa skin fold to keep the area dry. Given the duration of the wound and failure of the wound (posterior RLE) to respond to standard wound care, we again applied for advanced skin substitutes (Puraply, Nushield, Apligraf). We were approved for Apligraf and EpiFix. Excisional debridement was performed today as annotated above. The patient's right lower extremity swelling and drainage have significantly improved with the use of compression (Unna boots and 3M wraps). EpiFix #4 applied to the posterior RLE ulcer (1.8 cm? disc); 100% of the product was used. A small amount of hydrogel was applied atop the EpiFix. EpiFix was secured with Adaptic touch and Steri-Strips. The dressing was covered with gauze. Unna boot applied to the right lower extremity for compression. Patient was instructed to keep her right lower extremity wraps clean and dry. If at anytime the wrap becomes too tight or uncomfortable, she is to elevate her leg. If she experiences numbness, tingling, or discoloration of the toes that does not subside with leg elevation, she is to notify the wound healing center and remove the wrap. Compression: Unna boot to right lower extremity. Lymphedema pumps should be utilized for 1 hour 3 times per day. If this is not well-tolerated, the patient should continue to use the pumps as long and as frequently as possible, working toward this goal. Off-loading: The patient has been instructed to avoid pressure and friction on the affected areas. Reposition every 2 hours at minimum. Avoid prolonged standing and/or dangling of legs. When seated, feet should be elevated at chest level. Frequent ambulation is encouraged. Diet: Patient encouraged to increase protein intake while taking caution to avoid high carbohydrate and/or sugar intake. Labs/cultures/imaging: The patient's wound cultures from 02/05/2021 were positive for 1+ Enterococcus faecalis, and rare MRSA. She was sent to the emergency department for IV antibiotic treatment. She received a dose of IV vancomycin 2000mg and was discharged on 10-day courses of doxycycline and Augmentin, which she has completed. Repeat cultures from 03/12/2021 were negative. Venous and arterial studies were previously ordered in September 2020, though the patient never had these done. These were again ordered in late December 2020, but were not completed. Return to clinic on Monday for nurse visit. Return in 1 week for reevaluation. Bring CircAid's to next appointment. Patient was instructed to return sooner or report to the emergency room should symptoms worsen, or new symptoms arise. Note: [employer] speech recognition director patient accounting software was used to create portions of this document. Sound-alike and misspelled words, as well as other director patient accounting errors may be contained in the documentation.
[2021-06-29 13:17] VITALS: BP 157/82; PULSE 96; RESP 18; TEMP 35.9; BMI 49.0
--- NOTE | 2021-07-02 09:10 | PN.PCM_ITS ---
History of Present Illness Date of Service: 07/02/21 Chief Complaint: Ulcers of right lower extremity History of Wound: [facility] for evaluation and treatment of bilateral lower leg ulcers. The patient is [facility] treatment of prior lower extremity ulcers. She has a PMH significant for chronic lymphedema, venous insufficiency, atrial fibrillation (on Eliquis), morbid obesity, and hypothyroidism. She reported development of her posterior right lower leg ulcer in April 2019. She initially was using Manuka honey to this ulcer, but then started using Vaseline instead. She reported her anterior right lower extremity ulcer developed in August, and she had been applying Vaseline to this daily. Her anterior left lower extremity ulcer developed approximately 1 week prior to her initial January 2020 appt, and she had been applying Vaseline to this daily as well. She notes that approximately 4 to 6 weeks prior, the ulcer on her posterior right lower leg began increasing in soreness. She has lymphedema pumps at home, but had not been using these due to reported pain with use which is related to her ulcers. She does not use compression at home. She reports frequent dangling of her legs while seated at her computer for work. She does not frequently elevate her feet when seated. The patient denied any fever, chills, nausea, vomiting, or diarrhea on initial evaluation. She denied any increasing redness or swelling of the affected area at that time as well. She did note foul-smelling drainage from her right lower extremity. She had not been on any recent antibiotics prior to evaluation. She reported having lab work done approximately 6 weeks prior; these records were requested for review multiple times but never obtained. Lab work was ordered and completed in February 2020 and was significant for the following: CBCD: RBC 3.83 (L), hemoglobin 11.3 (L), hematocrit 34.8 (L), platelets 143 (L) ESR: 93 (H) CMP: Albumin 3.0 (L) CRP: 111 (H) Prealbumin 18.6 (L) She had lower extremity arterial studies completed 05/16/16 which showed relatively normal arterial perfusion to ankle level bilaterally. Triphasic waveforms were noted at ankle level bilaterally. Resting ankle-brachial indices were bilaterally normal. The right digital-brachial index is normal, consistent with normal arterial perfusion at distal, small-vessel level in the right lower extremity. The left digital-brachial index is mildly diminished, suggesting the presence of mild, distal, small-vessel arterial occlusive disease in the left lower extremity. Venous and arterial studies were ordered on 09/11/2020, and the patient was scheduled for an appointment in September for these tests. However the tests were never completed. The patient has continually expressed reluctance regarding wound work-up, and noncompliance with orders. Wound cultures collected on 01/03/2020 were positive for 3+ Aeromonas hydrophilia/caviae, 2+ Citrobacter braakii, 1+ Proteus mirabilis, rare Staphylococus aureus, anaerobic cocci, actinomyces odontolyticus, Bacteroides fragilis; beta-lactamase positive. She completed courses of Levaquin and Augmentin. Weeks later, she developed redness and warmth of a localized lymphedema mass of her right medial thigh; this resolved following a 14-day course of Levaquin and Augmentin. She has continued to have fluctuating redness and warmth of this right medial thigh lymphedema mass. She has completed several courses of antibiotics. Keflex and Levaquin have been of benefit. Doxycycline was not felt to be of significant benefit. A referral to a lymphedema specialist at the [facility] was made, and the importance of scheduling this appointment was discussed with the patient. She has not yet scheduled this appointment. Several conversations have been had with the patient regarding her need for compression and lymphedema management in order for her wounds to heal. She refuses compression. She is noncompliant with elevating her legs. She states she is unable to use her lymphedema pumps at this time due to the size of her legs. Since January 2020, several wound care treatments have been utilized, including Aquacel, Aquacel Ag, Devika. She has completed several applications of advanced skin substitutes (Apligraf, Puraply, and Nushield). She initially completed 6 applications of Puraply, the last of which was placed on 03/13/2020. She was subsequently approved for 10 additional applications of organogenesis products, which were applied between 05/15/2020 and 08/07/2020 (1 Puraply, 5 Apligraf, and 4 Nushield). Progress of Wound: Patient has had worsening of her wound size and appearance in recent weeks. She has had copious amounts of clear drainage from her right lower extremity, particularly from the anterior RLE. She has severe excoriation of the anterior RLE, as well as new areas of ulceration. She reports she has been changing her super sorb dressings approximately 4 times daily, and they have been saturated when changed. She is using Aquacel Ag to her right lower extremity anterior and posterior ulcers. She again states that she has not been using her lymphedema pumps often, but has been trying to use them more. She does not elevate her leg regularly. She does not use compression. She has not rescheduled her appointment with the lymphedema specialist at the [facility]. She expresses reluctance about lymphedema surgery, stating she knows people who have had surgery and has had numerous complications, as well as healthcare providers that recommend exhausting conservative treatment efforts prior to consideration of surgery. The patient's wound cultures from 02/05/2021 were positive for 1+ Enterococcus faecalis, and rare MRSA. She was sent to the emergency department for IV antibiotic treatment. She received a dose of IV vancomycin 2000mg and was discharged on 10-day courses of doxycycline and Augmentin, which she has completed. Hospital labs were as follows: CBCD: Unremarkable CMP: Unremarkable Lactic acid: Normal INR: Normal The patient was seen by Dr. Desai on 02/16/2021 for [facility]. Aquacel Ag was continued, and the patient was started on Unna boots for compression and treatment of right lower extremity excoriation. Progress of Wound: EpiFix was well tolerated. Compliant with Unna boot. The patient denies fever, chills, general malaise, or poor appetite. The patient has not had increased redness, swelling, or purulent/malodorous drainage from affected area. She received her CircAids, which she brought with her today. The size she received does not match the measurements documented in her chart. Her intertrigo rash of the right popliteal fossa has improved with the use of ketoconazole cream and nystatin powder. Objective Data Objective Data Vital Signs: Vital Signs Temp Pulse Resp BP 96.7 F L 96 18 157/82 H 06/29/21 13:17 06/29/21 13:17 06/29/21 13:17 06/29/21 13:17 Oxygen Delivery Method Room Air Body Mass Index (BMI) 49.0 Charges/Coding Visit Charges Office Visits / Consults: 17785 OV L3 Est Physical Exam Const alert and no apparent distress General Appearance: cooperative, comfortable and well kempt Nutritional Appearance: morbidly obese HEENT Head and Scalp: normocephalic and atraumatic Neck supple Lymph Lymphatic: lymphedema severe (worse in RLE) Resp normal respiratory effort Cardio Peripheral Pulses: dorsalis pedis pulses present right 2+ Extremity normal capillary refill and no joint enlargement General Extremity: edema right lower extremity trace; Negative for clubbing or cyanosis Skin Rashes: rashes noted distal RLE Narrative: Right lower extremity erythema and excoriation is improved, though still present to a lesser degree excoriation red dry nontender and mild, Right popliteal fossa Narrative: Intertriginous rash and excoriation improved. Mild erythema still present. Wounds: wounds noted drainage serous, No malodorous, no odor and surrounding erythema Wound Narrative: Anterior RLE ulcer remains healed. There is mild erythema of the right anterior leg region. Dry/scaly skin has resolved. Posterior RLE ulcer with small amount of slough visualized under Adaptic Touch. Trace periulcer erythema present. No periulcer warmth. No purulent or malodorous drainage. No tenderness to palpation. Neuro oriented x3, moves all extremities and no focal motor deficits Psych mental status grossly normal, cooperative and affect normal Debridement Note Debridement Note No debridement was completed: No debridement was completed today Post-Debridement Measurements and Additional Note: Post-Debridement Measurements/Treatment WC - Nurse 1 - General Ulcer Assessment Start: 06/04/21 09:07 Freq: Status: Active Protocol: CHRISTIANNE.DINESH Activity Type Activity Date Activity User E-Sign Co-Sign Detail Recorded Client Recorded Date Recorded By Document 06/04/21 09:07 [facility] [id number] 06/04/21 09:09 [facility] Document 06/08/21 13:25 BM [id number] 06/08/21 13:27 BMF Document 06/11/21 07:56 AK [id number] 06/11/21 08:21 AK Document 06/15/21 13:23 DL [id number] 06/15/21 13:30 DL Document 06/18/21 08:26 KR [id number] 06/18/21 08:29 KR Document 06/22/21 13:16 BM [id number] 06/22/21 13:20 BMF Document 06/25/21 08:26 KR [id number] 06/25/21 08:29 KR Document 06/29/21 13:17 MW [id number] 06/29/21 13:20 MW 06/04/21 06/08/21 06/11/21 09:07 13:25 07:56 WC - Today's Visit Information Type of service Follow-up Visit Nurse-only Follow-up Visit (Physician/TERRAZZO POLISHER Visit (Physician/TERRAZZO POLISHER ) ) Arrival Mode Ambulatory,Cane Ambulatory,Cane Ambulatory Transfer Assistance None None Accompanied by Patient Identification Verified (Name & Yes Yes Yes ) Patient Requires Transmission-Based No No No Precautions Safety Precautions NA Height and Weight Body Mass Index (BMI) 49.0 49.0 49.0 BMI Classification Obese Obese Obese Vital Signs Temperature (97.8 F-99.1 F) 96 F L 96.9 F L 96.3 F L Temperature Source Temporal Temporal Temporal Pulse Rate (60-100) 76 77 Pulse Location Monitor Monitor Respiratory Rate (12-18) 18 77 H Respiratory rate source Observation Observation Oxygen Delivery Method Room Air Room Air Blood Pressure (90/60-120/80) 136/102 H 134/88 H Blood Pressure Mean (mm Hg) 113 103 Source Monitor Monitor Position Sitting Sitting Blood Pressure Location Right Forearm Right Forearm History Since Last Visit- (Skip if this is Patient's initial visit) Have you changed medications since your No No last visit? Any new allergies or adverse reactions No No No Had a fall/change in ADL's that may No No No increase risk of falls Signs or symptoms of abuse and/or No No No neglect since last visit Have you been in the hospital since your No No No last visit? Has dressing in place as prescribed Yes Yes Yes Has compression in place as prescribed Yes Yes Yes Has offloadiing in place as prescribed N/A N/A N/A Experienced any changes in pain level or No No No management Left Footwear Regular Shoe Regular Shoe Regular Shoe Right Footwear Regular Shoe Regular Shoe Regular Shoe Pain Scale: 0-10 Numeric Is Patient Pain Free? Yes Yes Yes 06/15/21 06/18/21 06/22/21 13:23 08:26 13:16 WC - Today's Visit Information Type of service Nurse-only Follow-up Visit Nurse-only Visit (Physician/TERRAZZO POLISHER Visit ) Arrival Mode Ambulatory Ambulatory Ambulatory Transfer Assistance None None Accompanied by Patient Identification Verified (Name & Yes Yes Yes ) Patient Requires Transmission-Based No Precautions Safety Precautions Height and Weight Body Mass Index (BMI) 49.0 49.0 49.0 BMI Classification Obese Obese Obese Vital Signs Temperature (97.8 F-99.1 F) 96.9 F L 95.8 F L 97.3 F L Temperature Source Temporal Temporal Temporal Pulse Rate (60-100) 87 129 H 88 Pulse Location Monitor Monitor Monitor Respiratory Rate (12-18) 22 H 18 Respiratory rate source Observation Oxygen Delivery Method Room Air Blood Pressure (90/60-120/80) 147/86 H 153/90 H 142/98 H Blood Pressure Mean (mm Hg) 106 111 112 Source Monitor Monitor Monitor Position Sitting Sitting Blood Pressure Location Right Arm Left Forearm History Since Last Visit- (Skip if this is Patient's initial visit) Have you changed medications since your No No No last visit? Any new allergies or adverse reactions No No No Had a fall/change in ADL's that may No No No increase risk of falls Signs or symptoms of abuse and/or No No No neglect since last visit Have you been in the hospital since your No No No last visit? Has dressing in place as prescribed Yes Yes Yes Has compression in place as prescribed Yes Yes Yes Has offloadiing in place as prescribed N/A N/A N/A Experienced any changes in pain level or No No No management Left Footwear Regular Shoe Regular Shoe Right Footwear Regular Shoe Regular Shoe Pain Scale: 0-10 Numeric Is Patient Pain Free? Yes Yes Yes 06/25/21 06/29/21 08:26 13:17 - Today's Visit Information Type of service Follow-up Visit Follow-up Visit (Physician/TERRAZZO POLISHER (Physician/TERRAZZO POLISHER ) ) Arrival Mode Ambulatory,Cane Ambulatory,Cane Transfer Assistance None Accompanied by self Patient Identification Verified (Name & Yes Yes ) Patient Requires Transmission-Based No Precautions Safety Precautions Height and Weight Body Mass Index (BMI) 49.0 49.0 BMI Classification Obese Obese Vital Signs Temperature (97.8 F-99.1 F) 97.4 F L 96.7 F L Temperature Source Temporal Temporal Pulse Rate (60-100) 85 96 Pulse Location Monitor Monitor Respiratory Rate (12-18) 18 Respiratory rate source Observation Oxygen Delivery Method Blood Pressure (90/60-120/80) 186/91 H 157/82 H Blood Pressure Mean (mm Hg) 122 107 Source Monitor Monitor Position Semi-Fowlers Sitting Blood Pressure Location Left Arm Left Forearm History Since Last Visit- (Skip if this is Patient's initial visit) Have you changed medications since your No No last visit? Any new allergies or adverse reactions No No Had a fall/change in ADL's that may No No increase risk of falls Signs or symptoms of abuse and/or No No neglect since last visit Have you been in the hospital since your No No last visit? Has dressing in place as prescribed Yes Yes Has compression in place as prescribed Yes Yes Has offloadiing in place as prescribed N/A N/A Experienced any changes in pain level or No No management Left Footwear Regular Shoe Regular Shoe Right Footwear Regular Shoe Regular Shoe Pain Scale: 0-10 Numeric Is Patient Pain Free? Yes Yes WC - Nurse 1 - General Ulcer Measurement Start: 06/04/21 09:07 Freq: Status: Active Protocol: Activity Type Activity Date Activity User E-Sign Co-Sign Detail Recorded Client Recorded Date Recorded By Document 06/04/21 09:07 [facility] [id number] 06/04/21 09:09 [facility] Document 06/11/21 07:56 AK [id number] 06/11/21 08:21 AK Document 06/15/21 13:23 DL [id number] 06/15/21 13:30 DL Document 06/18/21 08:26 KR [id number] 06/18/21 08:29 KR Document 06/25/21 08:26 KR [id number] 06/25/21 08:29 KR Document 06/29/21 13:17 MW [id number] 06/29/21 13:20 MW 06/04/21 06/11/21 06/15/21 09:07 07:56 13:23 Wound Center Nurse 1 #8 RLE Post -Combined with other wound No -Current Size (cm) - Length 2.5 -Current Size (cm) - Width 1 -Current Size (cm) - Depth 0.1 -Total Square Cm 2.5 -Photo Taken No -Epithelialization Small 1-33% -Tunneling No -Undermining/Tunneling No -Circular Undermining No -Change in Wound Grade/Stage No -Exudate Amt Medium Medium Small -Exudate Type Serosanguineous Serosanguineous Serosanguineous -Wound Margin Distinct, Distinct, Outline Outline Attached Attached -Granulation Amt Large (67-100%) -Granulation Quality Red -Slough/Fibrin Yes -Necrosis Amt Small (1-33%) Small (1-33%) -Necrotic Tissue Type Adherent Slough Adherent Slough -Structure Exposed N/A -Texture (Irene-wound Skin Appearance) Assessed, No Abnormality, Scarring Scarring Assessed -Moisture (Irene-wound Skin Appearance) Assessed No Abnormality, No Abnormality Assessed -Color (Irene-wound Skin Appearance) Assessed No Abnormality, Hemosiderin Assessed Staining -Temperature (Irene-wound Skin No Abnormality No Abnormality No Abnormality Appearance) (Pt Warm) (Pt Warm) (Pt Warm) -Tenderness on Palpation (Irene-wound No Yes No Skin Appearance) -Ulcer Cleansing Soap and Water Soap and Water Soap and Water -Foul Odor after Cleansing No No No -Anesthetic Used 5% Lidocaine 4% Lidocaine Gel Solution -Wound Comment(s) Epifix intact. Lower Limb Edema Present Yes Right Calf (cm) 66.6 64 65.6 Right Ankle (cm) 28.9 26 31 Left Calf (cm) 69.6 Left Ankle (cm) 33.4 06/18/21 06/25/21 06/29/21 08:26 08:26 13:17 Wound Center Nurse 1 #8 RLE Post -Combined with other wound No -Current Size (cm) - Length 2.2 2.6 -Current Size (cm) - Width 1 1 -Current Size (cm) - Depth 0.2 0.1 -Total Square Cm 2.2 2.6 -Photo Taken -Epithelialization -Tunneling -Undermining/Tunneling -Circular Undermining -Change in Wound Grade/Stage -Exudate Amt Small Small -Exudate Type Serosanguineous Serosanguineous -Wound Margin Distinct, Distinct, Outline Outline Attached Attached -Granulation Amt Medium (34-66%) Medium (34-66%) -Granulation Quality [place],Red -Slough/Fibrin -Necrosis Amt None Present (0 Small (1-33%) %) -Necrotic Tissue Type Adherent Slough -Structure Exposed -Texture (Irene-wound Skin Appearance) Assessed, Assessed, Assessed, Scarring Scarring Excoriation, Localized Edema ,Scarring -Moisture (Irene-wound Skin Appearance) Assessed,Dry/ Assessed,Dry/ Assessed Scaly Scaly -Color (Irene-wound Skin Appearance) No Abnormality, No Abnormality, Assessed,Rubor Assessed Assessed -Temperature (Irene-wound Skin No Abnormality No Abnormality No Abnormality Appearance) (Pt Warm) (Pt Warm) (Pt Warm) -Tenderness on Palpation (Irene-wound No No No Skin Appearance) -Ulcer Cleansing Soap and Water Soap and Water Soap and Water -Foul Odor after Cleansing No No No -Anesthetic Used 4% Lidocaine 4% Lidocaine Solution,5% Solution,5% Lidocaine Gel Lidocaine Gel -Wound Comment(s) Lower Limb Edema Present Right Calf (cm) 68 67.4 Right Ankle (cm) 32.2 30.5 Left Calf (cm) Left Ankle (cm) WC - Nurse 2 - General Ulcer CM Notes Start: 06/04/21 09:07 Freq: Status: Active Protocol: Activity Type Activity Date Activity User E-Sign Co-Sign Detail Recorded Client Recorded Date Recorded By Document 06/04/21 09:28 PL Desktop 06/04/21 09:35 PL Document 06/11/21 08:47 PL Desktop 06/11/21 08:48 PL Document 06/18/21 08:49 PL Desktop 06/18/21 08:50 PL Document 06/25/21 09:12 PL Desktop 06/25/21 09:14 PL 06/04/21 06/11/21 06/18/21 09:28 08:47 08:49 Wound Center Nurse 2 #8 RLE Post -Time 08:24 08:25 08:34 -Correct Patient Yes Yes Yes -Correct Side, Site, Position Yes Yes Yes -Correct Procedure Yes Yes Yes -Procedure Performed Yes Yes Yes -Type of Procedure Debridement Debridement Debridement -Clinical Debridement Subcutaneous Subcutaneous Subcutaneous -Tissue Removed Subcutaneous Subcutaneous Subcutaneous -Post Debridement (cm) - Length 2.9 2.4 2.2 -Post Debridement (cm) - Width 1.9 1.3 1.2 -Post Debridement (cm) - Depth 0.1 0.1 0.1 -Total Square (Post) (cm) 5.51 3.12 2.64 -Area of Debridement (cm) - Length 2.9 2.4 2.2 -Area of Debridement (cm) - Width 1.9 1.3 1.2 -Total Square (Area) (cm) 5.51 3.12 2.64 -Tunneling No No No -Undermining/Tunneling No No No -Circular Undermining No No No -Wound/Ulcer Outcome Not Healed Not Healed Not Healed -Ulcer Cleansing Rinsed/ Rinsed/ Rinsed/ Irrigated with Irrigated with Irrigated with Saline Saline Saline -Foul Odor after Cleansing No No No -Bioengineered Tissue Yes Yes Yes -Type of Bioengineered Tissue Epifix Epifix Epifix 18mm Disc -Expiration Date 02/01/26 02/01/26 -Product Lot Number [id number] -Percent Used 100 100 -Bleeding Controlled with Pressure Pressure Pressure -Treatment Response Procedure Procedure Procedure Tolerated Well Tolerated Well Tolerated Well -Debridement - Subq, 1st 20sq cm No No No -Apply Skin Sub - 1st 25 sq cm - Legs 1 1 1 -Epifix (per sq cm) 4 4 -Epifix 18mm Disc 3 Pain Scale: 0-10 Numeric Is Patient Pain Free? Yes Yes Yes 06/25/21 09:12 Wound Center Nurse 2 #8 RLE Post -Time 08:40 -Correct Patient Yes -Correct Side, Site, Position Yes -Correct Procedure Yes -Procedure Performed Yes -Type of Procedure Debridement -Clinical Debridement Subcutaneous -Tissue Removed Subcutaneous -Post Debridement (cm) - Length 1.9 -Post Debridement (cm) - Width 1.2 -Post Debridement (cm) - Depth 0.1 -Total Square (Post) (cm) 2.28 -Area of Debridement (cm) - Length 1.9 -Area of Debridement (cm) - Width 1.2 -Total Square (Area) (cm) 2.28 -Tunneling No -Undermining/Tunneling No -Circular Undermining No -Wound/Ulcer Outcome Not Healed -Ulcer Cleansing Rinsed/ Irrigated with Saline -Foul Odor after Cleansing No -Bioengineered Tissue Yes -Type of Bioengineered Tissue Epifix 18mm Disc -Expiration Date 04/03/26 -Product Lot Number [id number] -Percent Used 100 -Bleeding Controlled with Pressure -Treatment Response Procedure Tolerated Well -Debridement - Subq, 1st 20sq cm No -Apply Skin Sub - 1st 25 sq cm - Legs 1 -Epifix (per sq cm) -Epifix 18mm Disc 3 Pain Scale: 0-10 Numeric Is Patient Pain Free? Yes WC - Nurse 3 - General Ulcer D/C NN Start: 06/04/21 09:07 Freq: Status: Active Protocol: Activity Type Activity Date Activity User E-Sign Co-Sign Detail Recorded Client Recorded Date Recorded By Document 06/04/21 09:07 BM [id number] 06/04/21 09:09 BMF Document 06/08/21 13:25 BMF [id number] 06/08/21 13:27 BMF Document 06/11/21 08:42 AK [id number] 06/11/21 08:44 AK Document 06/15/21 13:23 DL [id number] 06/15/21 13:30 DL Document 06/18/21 08:53 KR [id number] 06/18/21 08:54 KR Document 06/22/21 13:16 BMF [id number] 06/22/21 13:20 BMF Document 06/25/21 09:46 AK [id number] 06/25/21 09:48 AK Document 06/29/21 13:17 MW [id number] 06/29/21 13:20 MW 06/04/21 06/08/21 06/11/21 09:07 13:25 08:42 Vital Signs Temperature (97.8 F-99.1 F) 96 F L 96.9 F L Temperature Source Temporal Temporal Pulse Rate (60-100) 76 77 Pulse Location Monitor Monitor Respiratory Rate (12-18) 18 77 H Respiratory rate source Observation Observation Oxygen Delivery Method Room Air Room Air Blood Pressure (90/60-120/80) 136/102 H 134/88 H Blood Pressure Mean (mm Hg) 113 103 Source Monitor Monitor Position Sitting Sitting Blood Pressure Location Right Forearm Right Forearm Pain Scale: 0-10 Numeric Is Patient Pain Free? Yes Yes Yes Wound Care Nurse 3 #8 RLE Post -Ulcer Cleansing Soap and Water -Foul Odor after Cleansing No No -Negative Pressure Wound Therapy N/A -Primary Dressing Applied Other -Other Dressing epifix epifix left intact; unna applied -Primary Dressing Covered/Secured with Dry Gauze Dry Gauze, Secured with Tape -Other Covering unna boot Right -Lotion applied to leg before compression wrap -Multi-Layered Wrap Application Unna Boot - Unna Boot - Unna Boot - Right ($) Right ($) Right ($) -Compression Wrap Unna Boot ($) ( single) Treatment Response Procedure Procedure Tolerated Well Tolerated Well WC - Visit Discharge Discharge Condition Stable Stable Stable Ambulatory Status Ambulatory,Cane Ambulatory,Cane Ambulatory,Cane Transportation Private Auto Private Auto Accompanied by Medication Reconcilliation completed & No Yes provided to patient/care provider Clinical Summary of Care Provided Yes Notes: 06/15/21 06/18/21 06/22/21 13:23 08:53 13:16 Vital Signs Temperature (97.8 F-99.1 F) 96.9 F L 97.3 F L Temperature Source Temporal Temporal Pulse Rate (60-100) 87 88 Pulse Location Monitor Monitor Respiratory Rate (12-18) 22 H 18 Respiratory rate source Observation Oxygen Delivery Method Room Air Blood Pressure (90/60-120/80) 147/86 H 142/98 H Blood Pressure Mean (mm Hg) 106 112 Source Monitor Monitor Position Sitting Blood Pressure Location Left Forearm Pain Scale: 0-10 Numeric Is Patient Pain Free? Yes Yes Yes Wound Care Nurse 3 #8 RLE Post -Ulcer Cleansing Soap and Water Soap and Water -Foul Odor after Cleansing No No -Negative Pressure Wound Therapy -Primary Dressing Applied -Other Dressing Epifix intact epifix intact -Primary Dressing Covered/Secured with Dry Gauze -Other Covering unna boot Right -Lotion applied to leg before compression wrap -Multi-Layered Wrap Application Unna Boot - Unna Boot - Multi-Layer Right ($) Right ($) Comp - Right ($ ) -Compression Wrap Unna Boot ($) ( single) Treatment Response Procedure Procedure Tolerated Well Tolerated Well WC - Visit Discharge Discharge Condition Stable Stable Stable Ambulatory Status Ambulatory,Cane Ambulatory,Cane Ambulatory,Cane Transportation Private Auto Private Auto Private Auto Accompanied by Medication Reconcilliation completed & provided to patient/care provider Clinical Summary of Care Provided Notes: 06/25/21 06/29/21 09:46 13:17 Vital Signs Temperature (97.8 F-99.1 F) 96.7 F L Temperature Source Temporal Pulse Rate (60-100) 96 Pulse Location Monitor Respiratory Rate (12-18) 18 Respiratory rate source Observation Oxygen Delivery Method Blood Pressure (90/60-120/80) 157/82 H Blood Pressure Mean (mm Hg) 107 Source Monitor Position Sitting Blood Pressure Location Left Forearm Pain Scale: 0-10 Numeric Is Patient Pain Free? Yes Yes Wound Care Nurse 3 #8 RLE Post -Ulcer Cleansing Soap and Water -Foul Odor after Cleansing No No -Negative Pressure Wound Therapy N/A N/A -Primary Dressing Applied -Other Dressing -Primary Dressing Covered/Secured with Dry Gauze Dry Gauze -Other Covering unna Right -Lotion applied to leg before No compression wrap -Multi-Layered Wrap Application Unna Boot - Unna Boot - Right ($) Right ($) -Compression Wrap Treatment Response Procedure Tolerated Well WC - Visit Discharge Discharge Condition Stable Stable Ambulatory Status Ambulatory,Cane Ambulatory,Cane Transportation Private Auto Private Auto Accompanied by self Medication Reconcilliation completed & Yes No provided to patient/care provider Clinical Summary of Care Provided Yes Yes Notes: yeast growth behind right knee. Very painful and has odor Assessment/Plan Assessment/Plan (1) Ulcer of right lower extremity with fat layer exposed: CODE(S): L97.912 - Non-pressure chronic ulcer of unspecified part of right lower leg with fat layer exposed (2) Venous ulcer of right leg: CODE(S): I83.019 - Varicose veins of right lower extremity with ulcer of unspecified site; L97.919 - Non-pressure chronic ulcer of unspecified part of right lower leg with unspecified severity (3) Nonhealing ulcer of right lower extremity: CODE(S): L97.919 - Non-pressure chronic ulcer of unspecified part of right lower leg with unspecified severity QUALIFIERS: Non-pressure ulcer stage: with fat layer exposed Qualified Code(s): L97.912 - Non-pressure chronic ulcer of unspecified part of right lower leg with fat layer exposed (4) Venous insufficiency: (5) Lymphedema: CODE(S): I89.0 - Lymphedema, not elsewhere classified (6) Morbid obesity: CODE(S): E66.01 - Morbid (severe) obesity due to excess calories (7) Excoriation of right lower leg: CODE(S): S80.811A - Abrasion, right lower leg, initial encounter QUALIFIERS: Encounter type: initial encounter Qualified Code(s): S80.811A - Abrasion, right lower leg, initial encounter (8) Intertrigo: CODE(S): L30.4 - Erythema intertrigo PLAN: Patient's intertriginous rash of the right popliteal fossa has improved with the use of ketoconazole cream and nystatin powder, and these will be continued. She was instructed on cleaning this area with antibacterial soap and water and ensuring that the area stays dry. She may use clean ABD pads or a dry washcloth to tuck into the right popliteal fossa skin fold to keep the area dry. Given the duration of the wound and failure of the wound (posterior RLE) to respond to standard wound care, we again applied for advanced skin substitutes (Puraply, Nushield, Apligraf). We were approved for Apligraf and EpiFix. She has showed significant improvement in her wound size and appearance with the recent use of EpiFix. No debridement was performed today. Her EpiFix dressing will be left in place for another week, with plans for removal next 07/09/2021. Hydrogel was applied atop Adaptic touch. A new Unna boot was applied to the right lower extremity for compression. The patient's right lower extremity swelling and drainage have significantly improved with the use of compression (Unna boots and 3M wraps). Patient was instructed to keep her right lower extremity wraps clean and dry. If at anytime the wrap becomes too tight or uncomfortable, she is to elevate her leg. If she experiences numbness, tingling, or discoloration of the toes that d oes not subside with leg elevation, she is to notify the wound healing center and remove the wrap. Compression: Unna boot to right lower extremity. Patient brought CircAid's to today's appointment, and they appear to be an inappropriate size based on documented leg measurements. plumbing manager, Anson Henriquez RN, to discuss with vendor and order appropriately sized CircAid's for the patient. Lymphedema pumps should be utilized for 1 hour 3 times per day. If this is not well-tolerated, the patient should continue to use the pumps as long and as frequently as possible, working toward this goal. Off-loading: The patient has been instructed to avoid pressure and friction on the affected areas. Reposition every 2 hours at minimum. Avoid prolonged standing and/or dangling of legs. When seated, feet should be elevated at chest level. Frequent ambulation is encouraged. Diet: Patient encouraged to increase protein intake while taking caution to avoid high carbohydrate and/or sugar intake. Labs/cultures/imaging: The patient's wound cultures from 02/05/2021 were positive for 1+ Enterococcus faecalis, and rare MRSA; she was sent to the emergency department for IV antibiotic treatment. She received a dose of IV vancomycin 2000mg and was discharged on 10-day courses of doxycycline and Augmentin, which she has completed. Repeat cultures from 03/12/2021 were negative. Venous and arterial studies were previously ordered in September 2020, though the patient never had these done. These were again ordered in late December 2020, but were not completed. Return to clinic on Monday for nurse visit. Return in 1 week for reevaluation. Patient was instructed to return sooner or report to the emergency room should symptoms worsen, or new symptoms arise. Note: [employer] speech recognition bag end sewer software was used to create portions of this document. Sound-alike and misspelled words, as well as other bag end sewer errors may be contained in the documentation.
== END 2021-07-01 23:59 | disposition home or self-care (01) ==
LOC: WC 13:00
PROVIDERS: PCP Family Medicine; Visit Provider Nurse Practitioner Family
DX: I83.018 Varicose veins of right lower extremity with ulcer other part of lower leg (principal); L97.812 Non-pressure chronic ulcer of other part of right lower leg with fat layer exposed; I48.91 Unspecified atrial fibrillation; E66.01 Morbid (severe) obesity due to excess calories; Z68.42 Body mass index [BMI] 45.0-49.9, adult; I89.0 Lymphedema, not elsewhere classified; I87.2 Venous insufficiency (chronic) (peripheral); S80.811A Abrasion, right lower leg, initial encounter; L30.4 Erythema intertrigo; Z79.01 Long term (current) use of anticoagulants; Z79.890 Hormone replacement therapy; Z79.899 Other long term (current) drug therapy; E03.9 Hypothyroidism, unspecified
CPT/HCPCS: 15271; 29580; 29581; 99213; Q4186; G0463

== ENCOUNTER 2021-07-30 08:15 | Outpatient (RCR) | payer MEDICAID, SELFPAY ==
[2021-07-02 00:23] VITALS: BP 157/82; PULSE 96; RESP 18; TEMP 35.9; BMI 49.0
[2021-07-02 08:41] VITALS: TEMP 36.2; BMI 49.0
[2021-07-06 13:20] VITALS: BP 134/85; PULSE 81; RESP 16; TEMP 35.3; BMI 49.0
[2021-07-09 08:23] VITALS: BP 155/87; PULSE 101; TEMP 35.8; BMI 49.0
--- NOTE | 2021-07-09 09:21 | PN.PCM_ITS ---
History of Present Illness Date of Service: 07/09/21 Chief Complaint: Ulcers of right lower extremity History of Wound: [facility] for evaluation and treatment of bilateral lower leg ulcers. The patient is [facility] from treatment of prior lower extremity ulcers. She has a PMH significant for chronic lymphedema, venous insufficiency, atrial fibrillation (on Eliquis), morbid obesity, and hypothyroidism. She reported development of her posterior right lower leg ulcer in April 2019. She initially was using Manuka honey to this ulcer, but then started using Vaseline instead. She reported her anterior right lower extremity ulcer developed in August, and she had been applying Vaseline to this daily. Her anterior left lower extremity ulcer developed approximately 1 week prior to her initial January 2020 appt, and she had been applying Vaseline to this daily as well. She notes that approximately 4 to 6 weeks prior, the ulcer on her posterior right lower leg began increasing in soreness. She has lymphedema pumps at home, but had not been using these due to reported pain with use which is related to her ulcers. She does not use compression at home. She reports frequent dangling of her legs while seated at her computer for work. She does not frequently elevate her feet when seated. The patient denied any fever, chills, nausea, vomiting, or diarrhea on initial evaluation. She denied any increasing redness or swelling of the affected area at that time as well. She did note foul-smelling drainage from her right lower extremity. She had not been on any recent antibiotics prior to evaluation. She reported having lab work done approximately 6 weeks prior; these records were requested for review multiple times but never obtained. Lab work was ordered and completed in February 2020 and was significant for the following: CBCD: RBC 3.83 (L), hemoglobin 11.3 (L), hematocrit 34.8 (L), platelets 143 (L) ESR: 93 (H) CMP: Albumin 3.0 (L) CRP: 111 (H) Prealbumin 18.6 (L) She had lower extremity arterial studies completed 05/16/16 which showed relatively normal arterial perfusion to ankle level bilaterally. Triphasic waveforms were noted at ankle level bilaterally. Resting ankle-brachial indices were bilaterally normal. The right digital-brachial index is normal, consistent with normal arterial perfusion at distal, small-vessel level in the right lower extremity. The left digital-brachial index is mildly diminished, suggesting the presence of mild, distal, small-vessel arterial occlusive disease in the left lower extremity. Venous and arterial studies were ordered on 09/11/2020, and the patient was scheduled for an appointment in September for these tests. However the tests were never completed. The patient has continually expressed reluctance regarding wound work-up, and noncompliance with orders. Wound cultures collected on 01/03/2020 were positive for 3+ Aeromonas hydrophilia/caviae, 2+ Citrobacter braakii, 1+ Proteus mirabilis, rare Staphylococus aureus, anaerobic cocci, actinomyces odontolyticus, Bacteroides fragilis; beta-lactamase positive. She completed courses of Levaquin and Augmentin. Weeks later, she developed redness and warmth of a localized lymphedema mass of her right medial thigh; this resolved following a 14-day course of Levaquin and Augmentin. She has continued to have fluctuating redness and warmth of this right medial thigh lymphedema mass. She has completed several courses of antibiotics. Keflex and Levaquin have been of benefit. Doxycycline was not felt to be of significant benefit. A referral to a lymphedema specialist at the [facility] was made, and the importance of scheduling this appointment was discussed with the patient. She has not yet scheduled this appointment. Several conversations have been had with the patient regarding her need for compression and lymphedema management in order for her wounds to heal. She refuses compression. She is noncompliant with elevating her legs. She states she is unable to use her lymphedema pumps at this time due to the size of her legs. Since January 2020, several wound care treatments have been utilized, including Aquacel, Aquacel Ag, Devika. She has completed several applications of advanced skin substitutes (Apligraf, Puraply, and Nushield). She initially completed 6 applications of Puraply, the last of which was placed on 03/13/2020. She was subsequently approved for 10 additional applications of organogenesis products, which were applied between 05/15/2020 and 08/07/2020 (1 Puraply, 5 Apligraf, and 4 Nushield). Progress of Wound: Patient has had worsening of her wound size and appearance in recent weeks. She has had copious amounts of clear drainage from her right lower extremity, particularly from the anterior RLE. She has severe excoriation of the anterior RLE, as well as new areas of ulceration. She reports she has been changing her super sorb dressings approximately 4 times daily, and they have been saturated when changed. She is using Aquacel Ag to her right lower extremity anterior and posterior ulcers. She again states that she has not been using her lymphedema pumps often, but has been trying to use them more. She does not elevate her leg regularly. She does not use compression. She has not rescheduled her appointment with the lymphedema specialist at the [facility]. She expresses reluctance about lymphedema surgery, stating she knows people who have had surgery and has had numerous complications, as well as healthcare providers that recommend exhausting conservative treatment efforts prior to consideration of surgery. The patient's wound cultures from 02/05/2021 were positive for 1+ Enterococcus faecalis, and rare MRSA. She was sent to the emergency department for IV antibiotic treatment. She received a dose of IV vancomycin 2000mg and was discharged on 10-day courses of doxycycline and Augmentin, which she has completed. Hospital labs were as follows: CBCD: Unremarkable CMP: Unremarkable Lactic acid: Normal INR: Normal The patient was seen by Dr. Desai on 02/16/2021 for [facility]. Aquacel Ag was continued, and the patient was started on Unna boots for compression and treatment of right lower extremity excoriation. Progress of Wound: The patient's wound is again improved in size and appearance today. She is tolerating epi fix well. Her last epi fix graft was left on for 2 weeks. The rash of her popliteal fossa is significantly improved. She continues to use nystatin powder and ketoconazole cream as instructed. Objective Data Objective Data Vital Signs: Vital Signs Temp Pulse Resp BP 96.5 F L 101 H 16 155/87 H 07/09/21 08:23 07/09/21 08:23 07/06/21 13:20 07/09/21 08:23 Oxygen Delivery Method Room Air Body Mass Index (BMI) 49.0 Charges/Coding Procedures Integumentary 150xxx-152xx: 98873 Skin sub graft trnk/arm/leg Physical Exam Const alert and no apparent distress General Appearance: cooperative, comfortable and well kempt Nutritional Appearance: morbidly obese HEENT Head and Scalp: normocephalic and atraumatic Neck supple Lymph Lymphatic: lymphedema severe (worse in RLE) Resp normal respiratory effort Cardio Peripheral Pulses: dorsalis pedis pulses present right 2+ Extremity normal capillary refill and no joint enlargement General Extremity: edema right lower extremity trace; Negative for clubbing or cyanosis Skin Rashes: rashes noted distal RLE Narrative: Resolved, Right popliteal fossa Narrative: Intertriginous rash and excoriation improved. Mild erythema still present. Wounds: wounds noted drainage serous, No malodorous, no odor and surrounding erythema Wound Narrative: Posterior RLE ulcer with scant amount of slough and devitalized tissue. Subcutaneous layer exposed. No tunneling, undermining, or probing to bone. Trace periulcer erythema present. No periulcer warmth. No purulent or malodorous drainage. No tenderness to palpation. Neuro oriented x3, moves all extremities and no focal motor deficits Psych mental status grossly normal, cooperative and affect normal Debridement Note Debridement Note Wound debrided: Posterior RLE Laterality: Right Type of Debridement: Excisional debridement Anesthesia Used: 4% Lidocaine Solution Depth: in the subcutaneous layer Percentage of wound debrided: 100 Instrument Used: 3mm curette Tissue Removed: Slough and devitalized tissue Severity: Fat Layer Exposed Amount of bleeding with debridement: Mild Bleeding Controlled with: Pressure Patient tolerated procedure: Patient tolerated procedure well Post-Debridement Measurements and Additional Note: Post-Debridement Measurements/Treatment [facility] Nurse 1 - General Ulcer Assessment Start: 07/02/21 08:40 Freq: Status: Active Protocol: CHRISTIANNE.SARANYAT Activity Type Activity Date Activity User E-Sign Co-Sign Detail Recorded Client Recorded Date Recorded By Document 07/02/21 08:41 [place] [id number] 07/02/21 08:41 [place] Document 07/06/21 13:20 [facility] [id number] 07/06/21 13:22 [facility] Document 07/09/21 08:23 KR [id number] 07/09/21 08:27 KR 07/02/21 07/06/21 07/09/21 08:41 13:20 08:23 - Today's Visit Information Type of service Follow-up Visit Nurse-only Follow-up Visit (Physician/MIS DIRECTOR Visit (Physician/MIS DIRECTOR ) ) Arrival Mode Ambulatory,Cane Ambulatory,Cane Ambulatory,Cane Transfer Assistance None Patient Identification Verified (Name & Yes Yes Yes ) Patient Requires Transmission-Based No Precautions Height and Weight Body Mass Index (BMI) 49.0 49.0 49.0 BMI Classification Obese Obese Obese Vital Signs Temperature (97.8 F-99.1 F) 97.1 F L 95.5 F L 96.5 F L Temperature Source Temporal Temporal Temporal Pulse Rate (60-100) 81 101 H Pulse Location Monitor Monitor Respiratory Rate (12-18) 16 Respiratory rate source Observation Oxygen Delivery Method Room Air Blood Pressure (90/60-120/80) 134/85 H 155/87 H Blood Pressure Mean (mm Hg) 101 109 Source Monitor Monitor Position Sitting Semi-Fowlers Blood Pressure Location Left Forearm Right Arm History Since Last Visit- (Skip if this is Patient's initial visit) Have you changed medications since your No No No last visit? Any new allergies or adverse reactions No No No Had a fall/change in ADL's that may No No No increase risk of falls Signs or symptoms of abuse and/or No No No neglect since last visit Have you been in the hospital since your No No No last visit? Has dressing in place as prescribed Yes Yes Yes Has compression in place as prescribed Yes Yes Yes Has offloadiing in place as prescribed N/A N/A N/A Experienced any changes in pain level or No No No management Left Footwear Regular Shoe Regular Shoe Regular Shoe Right Footwear Regular Shoe Regular Shoe Regular Shoe Pain Scale: 0-10 Numeric Is Patient Pain Free? Yes Yes Yes WC - Nurse 1 - General Ulcer Measurement Start: 07/02/21 08:40 Freq: Status: Active Protocol: Activity Type Activity Date Activity User E-Sign Co-Sign Detail Recorded Client Recorded Date Recorded By Document 07/02/21 08:41 [place] [id number] 07/02/21 08:41 [place] Document 07/09/21 08:23 KR [id number] 07/09/21 08:27 KR 07/02/21 07/09/21 08:41 08:23 [facility] Nurse 1 #8 RLE Post -Current Size (cm) - Length 0.1 1.7 -Current Size (cm) - Width 0.1 1 -Current Size (cm) - Depth 0.1 0.2 -Total Square Cm 0.01 1.7 -Exudate Amt Medium -Exudate Type Serosanguineous -Wound Margin Distinct, Outline Attached -Granulation Amt Medium (34-66%) -Granulation Quality Red -Necrosis Amt Small (1-33%) -Necrotic Tissue Type Adherent Slough -Texture (Irene-wound Skin Appearance) Assessed, Scarring -Moisture (Irene-wound Skin Appearance) Assessed,Dry/ Scaly -Color (Irene-wound Skin Appearance) No Abnormality, Assessed -Temperature (Irene-wound Skin No Abnormality Appearance) (Pt Warm) -Tenderness on Palpation (Irene-wound No Skin Appearance) -Ulcer Cleansing Soap and Water -Foul Odor after Cleansing No -Anesthetic Used 4% Lidocaine Solution Right Calf (cm) 69 Right Ankle (cm) 33 WC - Nurse 2 - General Ulcer CM Notes Start: 07/02/21 08:40 Freq: Status: Active Protocol: Activity Type Activity Date Activity User E-Sign Co-Sign Detail Recorded Client Recorded Date Recorded By Document 07/09/21 08:43 PL Desktop 07/09/21 08:45 PL 07/09/21 08:43 W[facility] Nurse 2 #8 RLE Post -Time 08:32 -Correct Patient Yes -Correct Side, Site, Position Yes -Correct Procedure Yes -Procedure Performed Yes -Type of Procedure Debridement -Clinical Debridement Subcutaneous -Tissue Removed Subcutaneous -Post Debridement (cm) - Length 1.7 -Post Debridement (cm) - Width 1.0 -Post Debridement (cm) - Depth 0.1 -Total Square (Post) (cm) 1.70 -Area of Debridement (cm) - Length 1.7 -Area of Debridement (cm) - Width 1.0 -Total Square (Area) (cm) 1.70 -Tunneling No -Undermining/Tunneling No -Circular Undermining No -Wound/Ulcer Outcome Not Healed -Ulcer Cleansing Rinsed/ Irrigated with Saline -Foul Odor after Cleansing No -Bioengineered Tissue Yes -Type of Bioengineered Tissue Epifix 18mm Disc -Expiration Date 05/04/26 -Product Lot Number [id number] -Percent Used 100 -Bleeding Controlled with Pressure -Treatment Response Procedure Tolerated Well -Debridement - Subq, 1st 20sq cm No -Apply Skin Sub - 1st 25 sq cm - Legs 1 -Epifix 18mm Disc 3 Pain Scale: 0-10 Numeric Is Patient Pain Free? Yes - Nurse 3 - General Ulcer D/C NN Start: 07/02/21 08:40 Freq: Status: Active Protocol: Activity Type Activity Date Activity User E-Sign Co-Sign Detail Recorded Client Recorded Date Recorded By Document 07/02/21 10:55 AK [id number] 07/02/21 10:57 AK Document 07/06/21 13:20 BM [id number] 07/06/21 13:22 BM Document 07/09/21 08:44 KR [id number] 07/09/21 08:44 KR 07/02/21 07/06/21 07/09/21 10:55 13:20 08:44 Wound Care Nurse 3 #8 RLE Post -Foul Odor after Cleansing No -Negative Pressure Wound Therapy N/A -Other Dressing epifix intact, hydrogel -Primary Dressing Covered/Secured with Dry Gauze Dry Gauze Dry Gauze, Secured with Tape Right -Multi-Layered Wrap Application Unna Boot - Unna Boot - Unna Boot - Right ($) Right ($) Right ($) -Compression Wrap Unna Boot ($) ( single) Treatment Response Procedure Tolerated Well Vital Signs Temperature (97.8 F-99.1 F) 95.5 F L Temperature Source Temporal Pulse Rate (60-100) 81 Pulse Location Monitor Respiratory Rate (12-18) 16 Respiratory rate source Observation Oxygen Delivery Method Room Air Blood Pressure (90/60-120/80) 134/85 H Blood Pressure Mean (mm Hg) 101 Source Monitor Position Sitting Blood Pressure Location Left Forearm Pain Scale: 0-10 Numeric Is Patient Pain Free? Yes Yes Yes - Visit Discharge Discharge Condition Stable Stable Stable Ambulatory Status Ambulatory,Cane Ambulatory,Cane Ambulatory,Cane Transportation Private Auto Private Auto Private Auto Medication Reconcilliation completed & Yes provided to patient/care provider Clinical Summary of Care Provided Yes Assessment/Plan Assessment/Plan (1) Ulcer of right lower extremity with fat layer exposed: CODE(S): L97.912 - Non-pressure chronic ulcer of unspecified part of right lower leg with fat layer exposed (2) Venous ulcer of right leg: CODE(S): I83.019 - Varicose veins of right lower extremity with ulcer of unspecified site; L97.919 - Non-pressure chronic ulcer of unspecified part of right lower leg with unspecified severity (3) Nonhealing ulcer of right lower extremity: CODE(S): L97.919 - Non-pressure chronic ulcer of unspecified part of right lower leg with unspecified severity QUALIFIERS: Non-pressure ulcer stage: with fat layer exposed Qualified Code(s): L97.912 - Non-pressure chronic ulcer of unspecified part of right lower leg with fat layer exposed (4) Venous insufficiency: (5) Lymphedema: CODE(S): I89.0 - Lymphedema, not elsewhere classified (6) Morbid obesity: CODE(S): E66.01 - Morbid (severe) obesity due to excess calories (7) Intertrigo: CODE(S): L30.4 - Erythema intertrigo PLAN: Patient's intertriginous rash of the right popliteal fossa has improved with the use of ketoconazole cream and nystatin powder, and these will be continued. She was instructed on cleaning this area with antibacterial soap and water and ensuring that the area stays dry. She may use clean ABD pads or a dry washcloth to tuck into the right popliteal fossa skin fold to keep the area dry. Given the duration of the wound and failure of the wound (posterior RLE) to respond to standard wound care, we again applied for advanced skin substitutes (Puraply, Nushield, Apligraf). We were approved for Apligraf and EpiFix. She has shown significant improvement in her wound size and appearance with the recent use of EpiFix. Debridement performed today as annotated above. EpiFix #5 applied today (disc); 100% of the product was used. Secured with Adaptic touch and Steri-Strips. Hydrogel was applied atop Adaptic touch. A new Unna boot was applied to the right lower extremity for compression. The patient's right lower extremity swelling and drainage have significantly improved with the use of compression (Unna boots and 3M wraps). Patient was instructed to keep her right lower extremity wraps clean and dry. If at anytime the wrap becomes too tight or uncomfortable, she is to elevate her leg. If she experiences numbness, tingling, or discoloration of the toes that does not subside with leg elevation, she is to notify the wound healing center and remove the wrap. Compression: Unna boot to right lower extremity. We are still looking into getting the patient appropriately sized CircAid's. Lymphedema pumps should be utilized for 1 hour 3 times per day. If this is not well-tolerated, the patient should continue to use the pumps as long and as frequently as possible, working toward this goal. Off-loading: The patient has been instructed to avoid pressure and friction on the affected areas. Reposition every 2 hours at minimum. Avoid prolonged standing and/or dangling of legs. When seated, feet should be elevated at chest level. Frequent ambulation is encouraged. Diet: Patient encouraged to increase protein intake while taking caution to avoid high carbohydrate and/or sugar intake. Labs/cultures/imaging: The patient's wound cultures from 02/05/2021 were positive for 1+ Enterococcus faecalis, and rare MRSA; she was sent to the emergency department for IV antibiotic treatment. She received a dose of IV vancomycin 2000mg and was discharged on 10-day courses of doxycycline and Augmentin, which she has completed. Repeat cultures from 03/12/2021 were negative. Venous and arterial studies were previously ordered in September 2020, though the patient never had these done. These were again ordered in late December 2020, but were not completed. Return to clinic on Tuesdays and Fridays for nurse visits. Return in 2 weeks for reevaluation with provider. Patient was instructed to return sooner or report to the emergency room should symptoms worsen, or new symptoms arise. Note: [email or web address] speech recognition auto body man software was used to create portions of this document. Sound-alike and misspelled words, as well as other auto body man errors may be contained in the documentation.
[2021-07-13 08:18] VITALS: BP 161/90; TEMP 35.6; BMI 49.0
[2021-07-16 08:31] VITALS: BP 151/69; PULSE 89; TEMP 36.3; BMI 49.0
[2021-07-20 13:01] VITALS: BP 131/67; PULSE 77; TEMP 36.3; BMI 49.0
[2021-07-23 08:58] VITALS: BP 163/91; PULSE 92; TEMP 36.1; BMI 49.0
--- NOTE | 2021-07-23 09:16 | PN.PCM_ITS ---
History of Present Illness Date of Service: 07/23/21 Chief Complaint: Ulcers of right lower extremity History of Wound: [facility] for evaluation and treatment of bilateral lower leg ulcers. The patient is [facility] treatment of prior lower extremity ulcers. She has a PMH significant for chronic lymphedema, venous insufficiency, atrial fibrillation (on Eliquis), morbid obesity, and hypothyroidism. She reported development of her posterior right lower leg ulcer in April 2019. She initially was using Manuka honey to this ulcer, but then started using Vaseline instead. She reported her anterior right lower extremity ulcer developed in August, and she had been applying Vaseline to this daily. Her anterior left lower extremity ulcer developed approximately 1 week prior to her initial January 2020 appt, and she had been applying Vaseline to this daily as well. She notes that approximately 4 to 6 weeks prior, the ulcer on her posterior right lower leg began increasing in soreness. She has lymphedema pumps at home, but had not been using these due to reported pain with use which is related to her ulcers. She does not use compression at home. She reports frequent dangling of her legs while seated at her computer for work. She does not frequently elevate her feet when seated. The patient denied any fever, chills, nausea, vomiting, or diarrhea on initial evaluation. She denied any increasing redness or swelling of the affected area at that time as well. She did note foul-smelling drainage from her right lower extremity. She had not been on any recent antibiotics prior to evaluation. She reported having lab work done approximately 6 weeks prior; these records were requested for review multiple times but never obtained. Lab work was ordered and completed in February 2020 and was significant for the following: CBCD: RBC 3.83 (L), hemoglobin 11.3 (L), hematocrit 34.8 (L), platelets 143 (L) ESR: 93 (H) CMP: Albumin 3.0 (L) CRP: 111 (H) Prealbumin 18.6 (L) She had lower extremity arterial studies completed 05/16/16 which showed relatively normal arterial perfusion to ankle level bilaterally. Triphasic waveforms were noted at ankle level bilaterally. Resting ankle-brachial indices were bilaterally normal. The right digital-brachial index is normal, consistent with normal arterial perfusion at distal, small-vessel level in the right lower extremity. The left digital-brachial index is mildly diminished, suggesting the presence of mild, distal, small-vessel arterial occlusive disease in the left lower extremity. Venous and arterial studies were ordered on 09/11/2020, and the patient was scheduled for an appointment in September for these tests. However the tests were never completed. The patient has continually expressed reluctance regarding wound work-up, and noncompliance with orders. Wound cultures collected on 01/03/2020 were positive for 3+ Aeromonas hydrophilia/caviae, 2+ Citrobacter braakii, 1+ Proteus mirabilis, rare Staphylococus aureus, anaerobic cocci, actinomyces odontolyticus, Bacteroides fragilis; beta-lactamase positive. She completed courses of Levaquin and Augmentin. Weeks later, she developed redness and warmth of a localized lymphedema mass of her right medial thigh; this resolved following a 14-day course of Levaquin and Augmentin. She has continued to have fluctuating redness and warmth of this right medial thigh lymphedema mass. She has completed several courses of antibiotics. Keflex and Levaquin have been of benefit. Doxycycline was not felt to be of significant benefit. A referral to a lymphedema specialist at the [facility] was made, and the importance of scheduling this appointment was discussed with the patient. She has not yet scheduled this appointment. Several conversations have been had with the patient regarding her need for compression and lymphedema management in order for her wounds to heal. She refuses compression. She is noncompliant with elevating her legs. She states she is unable to use her lymphedema pumps at this time due to the size of her legs. Since January 2020, several wound care treatments have been utilized, including Aquacel, Aquacel Ag, Devika. She has completed several applications of advanced skin substitutes (Apligraf, Puraply, and Nushield). She initially completed 6 applications of Puraply, the last of which was placed on 03/13/2020. She was subsequently approved for 10 additional applications of organogenesis products, which were applied between 05/15/2020 and 08/07/2020 (1 Puraply, 5 Apligraf, and 4 Nushield). Progress of Wound: Patient has had worsening of her wound size and appearance in recent weeks. She has had copious amounts of clear drainage from her right lower extremity, particularly from the anterior RLE. She has severe excoriation of the anterior RLE, as well as new areas of ulceration. She reports she has been changing her super sorb dressings approximately 4 times daily, and they have been saturated when changed. She is using Aquacel Ag to her right lower extremity anterior and posterior ulcers. She again states that she has not been using her lymphedema pumps often, but has been trying to use them more. She does not elevate her leg regularly. She does not use compression. She has not rescheduled her appointment with the lymphedema specialist at the [facility]. She expresses reluctance about lymphedema surgery, stating she knows people who have had surgery and has had numerous complications, as well as healthcare providers that recommend exhausting conservative treatment efforts prior to consideration of surgery. The patient's wound cultures from 02/05/2021 were positive for 1+ Enterococcus faecalis, and rare MRSA. She was sent to the emergency department for IV antibiotic treatment. She received a dose of IV vancomycin 2000mg and was discharged on 10-day courses of doxycycline and Augmentin, which she has completed. Hospital labs were as follows: CBCD: Unremarkable CMP: Unremarkable Lactic acid: Normal INR: Normal The patient was seen by Dr. Desai on 02/16/2021 for [facility]. Aquacel Ag was continued, and the patient was started on Unna boots for compression and treatment of right lower extremity excoriation. Progress of Wound: The patient's wound is significantly improved in size and appearance today. She is tolerating epi fix well. Her last epi fix graft was left on for 2 weeks. The rash of her popliteal fossa is significantly improved. She continues to use nystatin powder and ketoconazole cream as instructed. Objective Data Objective Data Vital Signs: Vital Signs Temp Pulse Resp BP 96.9 F L 92 16 163/91 H 07/23/21 08:58 07/23/21 08:58 07/06/21 13:20 07/23/21 08:58 Oxygen Delivery Method Room Air Body Mass Index (BMI) 49.0 Charges/Coding Procedures Integumentary 111xxx-113xx: 10928 Shante subq tissue 20 sq cm/< Physical Exam Const alert and no apparent distress General Appearance: cooperative, comfortable and well kempt Nutritional Appearance: morbidly obese HEENT Head and Scalp: normocephalic and atraumatic Neck supple Lymph Lymphatic: lymphedema severe (worse in RLE) Resp normal respiratory effort Cardio Peripheral Pulses: dorsalis pedis pulses present right 2+ Extremity normal capillary refill and no joint enlargement General Extremity: edema right lower extremity trace; Negative for clubbing or cyanosis Skin Rashes: rashes noted distal RLE Narrative: Resolved, Right popliteal fossa Narrative: Intertriginous rash and excoriation improved. Mild erythema still present. Wounds: wounds noted drainage serous, No malodorous, no odor and surrounding erythema Wound Narrative: Posterior RLE ulcer with scant amount of slough and devitalized tissue. Subcutaneous layer exposed. No tunneling, undermining, or probing to bone. Trace periulcer erythema present. No periulcer warmth. No purulent or malodorous drainage. No tenderness to palpation. Neuro oriented x3, moves all extremities and no focal motor deficits Psych mental status grossly normal, cooperative and affect normal Debridement Note Debridement Note Wound debrided: Posterior RLE Laterality: Right Type of Debridement: Excisional debridement Anesthesia Used: 5% Lidocaine Gel Depth: in the subcutaneous layer Percentage of wound debrided: 100 Instrument Used: 3mm curette Tissue Removed: Slough and devitalized tissue Severity: Fat Layer Exposed Amount of bleeding with debridement: Mild Bleeding Controlled with: Pressure Patient tolerated procedure: Patient tolerated procedure well Post-Debridement Measurements and Additional Note: Post-Debridement Measurements/Treatment WC - Nurse 1 - General Ulcer Assessment Start: 07/02/21 08:40 Freq: Status: Active Protocol: CHRISTIANNE.DINESH Activity Type Activity Date Activity User E-Sign Co-Sign Detail Recorded Client Recorded Date Recorded By Document 07/02/21 08:41 NV [id number] 07/02/21 08:41 AK Document 07/06/21 13:20 [facility] [id number] 07/06/21 13:22 BMF Document 07/09/21 08:23 KR [id number] 07/09/21 08:27 KR Document 07/13/21 08:18 KR [id number] 07/13/21 08:19 KR Document 07/16/21 08:31 AK [id number] 07/16/21 08:36 AK Document 07/20/21 13:01 KR [id number] 07/20/21 13:02 KR Document 07/23/21 08:58 KR [id number] 07/23/21 09:00 KR 07/02/21 07/06/21 07/09/21 08:41 13:20 08:23 - Today's Visit Information Type of service Follow-up Visit Nurse-only Follow-up Visit (Physician/BOOKKEEPING ASSISTANT Visit (Physician/BOOKKEEPING ASSISTANT ) ) Arrival Mode Ambulatory,Cane Ambulatory,Cane Ambulatory,Cane Transfer Assistance None Patient Identification Verified (Name & Yes Yes Yes ) Patient Requires Transmission-Based No Precautions Height and Weight Body Mass Index (BMI) 49.0 49.0 49.0 BMI Classification Obese Obese Obese Vital Signs Temperature (97.8 F-99.1 F) 97.1 F L 95.5 F L 96.5 F L Temperature Source Temporal Temporal Temporal Pulse Rate (60-100) 81 101 H Pulse Location Monitor Monitor Respiratory Rate (12-18) 16 Respiratory rate source Observation Oxygen Delivery Method Room Air Blood Pressure (90/60-120/80) 134/85 H 155/87 H Blood Pressure Mean (mm Hg) 101 109 Source Monitor Monitor Position Sitting Semi-Fowlers Blood Pressure Location Left Forearm Right Arm History Since Last Visit- (Skip if this is Patient's initial visit) Have you changed medications since your No No No last visit? Any new allergies or adverse reactions No No No Had a fall/change in ADL's that may No No No increase risk of falls Signs or symptoms of abuse and/or No No No neglect since last visit Have you been in the hospital since your No No No last visit? Has dressing in place as prescribed Yes Yes Yes Has compression in place as prescribed Yes Yes Yes Has offloadiing in place as prescribed N/A N/A N/A Experienced any changes in pain level or No No No management Left Footwear Regular Shoe Regular Shoe Regular Shoe Right Footwear Regular Shoe Regular Shoe Regular Shoe Pain Scale: 0-10 Numeric Is Patient Pain Free? Yes Yes Yes 07/13/21 07/16/21 07/20/21 08:18 08:31 13:01 - Today's Visit Information Type of service Nurse-only Nurse-only Nurse-only Visit Visit Visit Arrival Mode Ambulatory,Cane Ambulatory,Cane Ambulatory,Cane Transfer Assistance Patient Identification Verified (Name & Yes Yes Yes ) Patient Requires Transmission-Based No Precautions Height and Weight Body Mass Index (BMI) 49.0 49.0 49.0 BMI Classification Obese Obese Obese Vital Signs Temperature (97.8 F-99.1 F) 96.0 F L 97.4 F L 97.4 F L Temperature Source Temporal Temporal Temporal Pulse Rate (60-100) 89 77 Pulse Location Monitor Monitor Monitor Respiratory Rate (12-18) Respiratory rate source Oxygen Delivery Method Blood Pressure (90/60-120/80) 161/90 H 151/69 H 131/67 H Blood Pressure Mean (mm Hg) 113 96 88 Source Monitor Monitor Monitor Position Sitting Semi-Fowlers Sitting Blood Pressure Location Right Arm Left Arm Left Arm History Since Last Visit- (Skip if this is Patient's initial visit) Have you changed medications since your No No No last visit? Any new allergies or adverse reactions No No No Had a fall/change in ADL's that may No No No increase risk of falls Signs or symptoms of abuse and/or No No No neglect since last visit Have you been in the hospital since your No No No last visit? Has dressing in place as prescribed Yes Yes Yes Has compression in place as prescribed Yes Yes Yes Has offloadiing in place as prescribed N/A N/A N/A Experienced any changes in pain level or No No No management Left Footwear Regular Shoe Regular Shoe Regular Shoe Right Footwear Regular Shoe Regular Shoe Regular Shoe Pain Scale: 0-10 Numeric Is Patient Pain Free? Yes Yes Yes 07/23/21 08:58 WC - Today's Visit Information Type of service Follow-up Visit (Physician/BOOKKEEPING ASSISTANT ) Arrival Mode Ambulatory Transfer Assistance Patient Identification Verified (Name & Yes ) Patient Requires Transmission-Based Precautions Height and Weight Body Mass Index (BMI) 49.0 BMI Classification Obese Vital Signs Temperature (97.8 F-99.1 F) 96.9 F L Temperature Source Temporal Pulse Rate (60-100) 92 Pulse Location Monitor Respiratory Rate (12-18) Respiratory rate source Oxygen Delivery Method Blood Pressure (90/60-120/80) 163/91 H Blood Pressure Mean (mm Hg) 115 Source Monitor Position Semi-Fowlers Blood Pressure Location Left Arm History Since Last Visit- (Skip if this is Patient's initial visit) Have you changed medications since your No last visit? Any new allergies or adverse reactions No Had a fall/change in ADL's that may No increase risk of falls Signs or symptoms of abuse and/or No neglect since last visit Have you been in the hospital since your No last visit? Has dressing in place as prescribed Yes Has compression in place as prescribed Yes Has offloadiing in place as prescribed N/A Experienced any changes in pain level or No management Left Footwear Regular Shoe Right Footwear Regular Shoe Pain Scale: 0-10 Numeric Is Patient Pain Free? Yes WC - Nurse 1 - General Ulcer Measurement Start: 07/02/21 08:40 Freq: Status: Active Protocol: Activity Type Activity Date Activity User E-Sign Co-Sign Detail Recorded Client Recorded Date Recorded By Document 07/02/21 08:41 AK [id number] 07/02/21 08:41 AK Document 07/09/21 08:23 KR [id number] 07/09/21 08:27 KR Document 07/23/21 08:58 KR [id number] 07/23/21 09:00 KR 07/02/21 07/09/21 07/23/21 08:41 08:23 08:58 Wound Center Nurse 1 #8 RLE Post -Current Size (cm) - Length 0.1 1.7 0.2 -Current Size (cm) - Width 0.1 1 0.2 -Current Size (cm) - Depth 0.1 0.2 0.1 -Total Square Cm 0.01 1.7 0.04 -Exudate Amt Medium None Present -Exudate Type Serosanguineous -Wound Margin Distinct, Distinct, Outline Outline Attached Attached -Granulation Amt Medium (34-66%) Small (1-33%) -Granulation Quality Red [place] -Necrosis Amt Small (1-33%) None Present (0 %) -Necrotic Tissue Type Adherent Slough -Texture (Irene-wound Skin Appearance) Assessed, Assessed, Scarring Scarring -Moisture (Irene-wound Skin Appearance) Assessed,Dry/ No Abnormality, Scaly Assessed -Color (Irene-wound Skin Appearance) No Abnormality, No Abnormality, Assessed Assessed -Temperature (Irene-wound Skin No Abnormality No Abnormality Appearance) (Pt Warm) (Pt Warm) -Tenderness on Palpation (Irene-wound No No Skin Appearance) -Ulcer Cleansing Soap and Water Rinsed/ Irrigated with Saline -Foul Odor after Cleansing No No -Anesthetic Used 4% Lidocaine 5% Lidocaine Solution Gel Right Calf (cm) 69 74 Right Ankle (cm) 33 32 WC - Nurse 2 - General Ulcer CM Notes Start: 07/02/21 08:40 Freq: Status: Active Protocol: Activity Type Activity Date Activity User E-Sign Co-Sign Detail Recorded Client Recorded Date Recorded By Document 07/09/21 08:43 PL Desktop 07/09/21 08:45 PL 07/09/21 08:43 Wound Center Nurse 2 #8 RLE Post -Time 08:32 -Correct Patient Yes -Correct Side, Site, Position Yes -Correct Procedure Yes -Procedure Performed Yes -Type of Procedure Debridement -Clinical Debridement Subcutaneous -Tissue Removed Subcutaneous -Post Debridement (cm) - Length 1.7 -Post Debridement (cm) - Width 1.0 -Post Debridement (cm) - Depth 0.1 -Total Square (Post) (cm) 1.70 -Area of Debridement (cm) - Length 1.7 -Area of Debridement (cm) - Width 1.0 -Total Square (Area) (cm) 1.70 -Tunneling No -Undermining/Tunneling No -Circular Undermining No -Wound/Ulcer Outcome Not Healed -Ulcer Cleansing Rinsed/ Irrigated with Saline -Foul Odor after Cleansing No -Bioengineered Tissue Yes -Type of Bioengineered Tissue Epifix 18mm Disc -Expiration Date 05/04/26 -Product Lot Number [id number] -Percent Used 100 -Bleeding Controlled with Pressure -Treatment Response Procedure Tolerated Well -Debridement - Subq, 1st 20sq cm No -Apply Skin Sub - 1st 25 sq cm - Legs 1 -Epifix 18mm Disc 3 Pain Scale: 0-10 Numeric Is Patient Pain Free? Yes - Nurse 3 - General Ulcer D/C NN Start: 07/02/21 08:40 Freq: Status: Active Protocol: Activity Type Activity Date Activity User E-Sign Co-Sign Detail Recorded Client Recorded Date Recorded By Document 07/02/21 10:55 AK [id number] 07/02/21 10:57 AK Document 07/06/21 13:20 [facility] [id number] 07/06/21 13:22 BMF Document 07/09/21 08:44 KR [id number] 07/09/21 08:44 KR Document 07/13/21 08:18 KR [id number] 07/13/21 08:19 KR Document 07/16/21 08:31 AK [id number] 07/16/21 08:36 AK Document 07/20/21 13:01 KR [id number] 07/20/21 13:02 KR Edit Result 07/20/21 13:01 KR (1) [id number] 07/21/21 07:07 PL (1) Right - Multi-Layered Wrap Application => Unna Boot - Right => ($) 07/02/21 07/06/21 07/09/21 10:55 13:20 08:44 Wound Care Nurse 3 #8 RLE Post -Ulcer Cleansing -Foul Odor after Cleansing No -Negative Pressure Wound Therapy N/A -Other Dressing epifix intact, hydrogel -Primary Dressing Covered/Secured with Dry Gauze Dry Gauze Dry Gauze, Secured with Tape Right -Multi-Layered Wrap Application Unna Boot - Unna Boot - Unna Boot - Right ($) Right ($) Right ($) -Compression Wrap Unna Boot ($) ( single) Treatment Response Procedure Tolerated Well Vital Signs Temperature (97.8 F-99.1 F) 95.5 F L Temperature Source Temporal Pulse Rate (60-100) 81 Pulse Location Monitor Respiratory Rate (12-18) 16 Respiratory rate source Observation Oxygen Delivery Method Room Air Blood Pressure (90/60-120/80) 134/85 H Blood Pressure Mean (mm Hg) 101 Source Monitor Position Sitting Blood Pressure Location Left Forearm Pain Scale: 0-10 Numeric Is Patient Pain Free? Yes Yes Yes WC - Visit Discharge Discharge Condition Stable Stable Stable Ambulatory Status Ambulatory,Cane Ambulatory,Cane Ambulatory,Cane Transportation Private Auto Private Auto Private Auto Medication Reconcilliation completed & Yes provided to patient/care provider Clinical Summary of Care Provided Yes 07/13/21 07/16/21 07/20/21 08:18 08:31 13:01 Wound Care Nurse 3 #8 RLE Post -Ulcer Cleansing Soap and Water -Foul Odor after Cleansing -Negative Pressure Wound Therapy -Other Dressing ABD pad -Primary Dressing Covered/Secured with Dry Gauze Right -Multi-Layered Wrap Application Unna Boot - Unna Boot - Unna Boot - Right ($) Right ($) Right ($) -Compression Wrap Unna Boot ($) ( single) Treatment Response Vital Signs Temperature (97.8 F-99.1 F) 96.0 F L 97.4 F L 97.4 F L Temperature Source Temporal Temporal Temporal Pulse Rate (60-100) 89 77 Pulse Location Monitor Monitor Monitor Respiratory Rate (12-18) Respiratory rate source Oxygen Delivery Method Blood Pressure (90/60-120/80) 161/90 H 151/69 H 131/67 H Blood Pressure Mean (mm Hg) 113 96 88 Source Monitor Monitor Monitor Position Sitting Semi-Fowlers Sitting Blood Pressure Location Right Arm Left Arm Left Arm Pain Scale: 0-10 Numeric Is Patient Pain Free? Yes Yes Yes WC - Visit Discharge Discharge Condition Stable Stable Stable Ambulatory Status Ambulatory,Cane Ambulatory,Cane Ambulatory,Cane Transportation Private Auto Private Auto Private Auto Medication Reconcilliation completed & provided to patient/care provider Clinical Summary of Care Provided Assessment/Plan Assessment/Plan (1) Ulcer of right lower extremity with fat layer exposed: CODE(S): L97.912 - Non-pressure chronic ulcer of unspecified part of right lower leg with fat layer exposed (2) Venous ulcer of right leg: CODE(S): I83.019 - Varicose veins of right lower extremity with ulcer of unspecified site; L97.919 - Non-pressure chronic ulcer of unspecified part of right lower leg with unspecified severity (3) Nonhealing ulcer of right lower extremity: CODE(S): L97.919 - Non-pressure chronic ulcer of unspecified part of right lower leg with unspecified severity QUALIFIERS: Non-pressure ulcer stage: with fat layer exposed Qualified Code(s): L97.912 - Non-pressure chronic ulcer of unspecified part of right lower leg with fat layer exposed (4) Venous insufficiency: (5) Lymphedema: CODE(S): I89.0 - Lymphedema, not elsewhere classified (6) Morbid obesity: CODE(S): E66.01 - Morbid (severe) obesity due to excess calories (7) Intertrigo: CODE(S): L30.4 - Erythema intertrigo PLAN: Patient's intertriginous rash of the right popliteal fossa has improved with the use of ketoconazole cream and nystatin powder, and these will be continued. She was instructed on cleaning this area with antibacterial soap and water and ensuring that the area stays dry. She may use clean ABD pads or a dry washcloth to tuck into the right popliteal fossa skin fold to keep the area dry. Given the duration of the wound and failure of the wound (posterior RLE) to respond to standard wound care, we again applied for advanced skin substitutes (Puraply, Nushield, Apligraf). We were approved for Apligraf and EpiFix. She has shown significant improvement in her wound size and appearance with the recent use of EpiFix. Debridement performed today as annotated above. She has completed 5 applications of epi fix. No epi fix grafts are available today for use. Devika was applied to the posterior RLE ulcer. A new Unna boot was applied today. The patient's right lower extremity swelling and drainage have significantly improved with the use of compression (Unna boots and 3M wraps). Devika will be changed on Monday with her Unna boot change. Patient was instructed to keep her right lower extremity wraps clean and dry. If at anytime the wrap becomes too tight or uncomfortable, she is to elevate her leg. If she experiences numbness, tingling, or discoloration of the toes that does not subside with leg elevation, she is to notify the wound healing center and remove the wrap. Compression: Unna boot to right lower extremity. We are still looking into getting the patient appropriately sized CircAid's. Per [employer], the rep should be calling the patient to arrange new sizing. Lymphedema pumps should be utilized for 1 hour 3 times per day. If this is not well-tolerated, the patient should continue to use the pumps as long and as frequently as possible, working toward this goal. Off-loading: The patient has been instructed to avoid pressure and friction on the affected areas. Reposition every 2 hours at minimum. Avoid prolonged standing and/or dangling of legs. When seated, feet should be elevated at chest level. Frequent ambulation is encouraged. Diet: Patient encouraged to increase protein intake while taking caution to avoid high carbohydrate and/or sugar intake. Labs/cultures/imaging: The patient's wound cultures from 02/05/2021 were positive for 1+ Enterococcus faecalis, and rare MRSA; she was sent to the emergency department for IV antibiotic treatment. She received a dose of IV vancomycin 2000mg and was discharged on 10-day courses of doxycycline and Augmentin, which she has completed. Repeat cultures from 03/12/2021 were negative. Venous and arterial studies were [facility] in [facility]. These were again ordered in late December 2020, but were not completed. Return to clinic on Tuesdays and Fridays for nurse visits. Return in 1 week for reevaluation with provider. Patient was instructed to return sooner or report to the emergency room should symptoms worsen, or new symptoms arise. Note: [employer] speech recognition central scheduler software was used to create portions of this document. Sound-alike and misspelled words, as well as other central scheduler errors may be contained in the documentation.
[2021-07-27 13:18] VITALS: BP 147/79; PULSE 86; RESP 18; TEMP 35.8; BMI 49.0
[2021-07-30 08:23] VITALS: BP 168/98; PULSE 88; TEMP 35.6; BMI 49.0
--- NOTE | 2021-07-30 08:52 | PN.PCM_ITS ---
History of Present Illness Date of Service: 07/30/21 Chief Complaint: Ulcers of right lower extremity History of Wound: [facility] for evaluation and treatment of bilateral lower leg ulcers. The patient is [facility] treatment of prior lower extremity ulcers. She has a PMH significant for chronic lymphedema, venous insufficiency, atrial fibrillation (on Eliquis), morbid obesity, and hypothyroidism. She reported development of her posterior right lower leg ulcer in April 2019. She initially was using Manuka honey to this ulcer, but then started using Vaseline instead. She reported her anterior right lower extremity ulcer developed in August, and she had been applying Vaseline to this daily. Her anterior left lower extremity ulcer developed approximately 1 week prior to her initial January 2020 appt, and she had been applying Vaseline to this daily as well. She notes that approximately 4 to 6 weeks prior, the ulcer on her posterior right lower leg began increasing in soreness. She has lymphedema pumps at home, but had not been using these due to reported pain with use which is related to her ulcers. She does not use compression at home. She reports frequent dangling of her legs while seated at her computer for work. She does not frequently elevate her feet when seated. The patient denied any fever, chills, nausea, vomiting, or diarrhea on initial evaluation. She denied any increasing redness or swelling of the affected area at that time as well. She did note foul-smelling drainage from her right lower extremity. She had not been on any recent antibiotics prior to evaluation. She reported having lab work done approximately 6 weeks prior; these records were requested for review multiple times but never obtained. Lab work was ordered and completed in February 2020 and was significant for the following: CBCD: RBC 3.83 (L), hemoglobin 11.3 (L), hematocrit 34.8 (L), platelets 143 (L) ESR: 93 (H) CMP: Albumin 3.0 (L) CRP: 111 (H) Prealbumin 18.6 (L) She had lower extremity arterial studies completed 05/16/16 which showed relatively normal arterial perfusion to ankle level bilaterally. Triphasic waveforms were noted at ankle level bilaterally. Resting ankle-brachial indices were bilaterally normal. The right digital-brachial index is normal, consistent with normal arterial perfusion at distal, small-vessel level in the right lower extremity. The left digital-brachial index is mildly diminished, suggesting the presence of mild, distal, small-vessel arterial occlusive disease in the left lower extremity. Venous and arterial studies were ordered on 09/11/2020, and the patient was scheduled for an appointment in September for these tests. However the tests were never completed. The patient has continually expressed reluctance regarding wound work-up, and noncompliance with orders. Wound cultures collected on 01/03/2020 were positive for 3+ Aeromonas hydrophilia/caviae, 2+ Citrobacter braakii, 1+ Proteus mirabilis, rare Staphylococus aureus, anaerobic cocci, actinomyces odontolyticus, Bacteroides fragilis; beta-lactamase positive. She completed courses of Levaquin and Augmentin. Weeks later, she developed redness and warmth of a localized lymphedema mass of her right medial thigh; this resolved following a 14-day course of Levaquin and Augmentin. She has continued to have fluctuating redness and warmth of this right medial thigh lymphedema mass. She has completed several courses of antibiotics. Keflex and Levaquin have been of benefit. Doxycycline was not felt to be of significant benefit. A referral to a lymphedema specialist at the [facility] was made, and the importance of scheduling this appointment was discussed with the patient. She has not yet scheduled this appointment. Several conversations have been had with the patient regarding her need for compression and lymphedema management in order for her wounds to heal. She refuses compression. She is noncompliant with elevating her legs. She states she is unable to use her lymphedema pumps at this time due to the size of her legs. Since January 2020, several wound care treatments have been utilized, including Aquacel, Aquacel Ag, Devika. She has completed several applications of advanced skin substitutes (Apligraf, Puraply, and Nushield). She initially completed 6 applications of Puraply, the last of which was placed on 03/13/2020. She was subsequently approved for 10 additional applications of organogenesis products, which were applied between 05/15/2020 and 08/07/2020 (1 Puraply, 5 Apligraf, and 4 Nushield). Progress of Wound: Patient has had worsening of her wound size and appearance in recent weeks. She has had copious amounts of clear drainage from her right lower extremity, particularly from the anterior RLE. She has severe excoriation of the anterior RLE, as well as new areas of ulceration. She reports she has been changing her super sorb dressings approximately 4 times daily, and they have been saturated when changed. She is using Aquacel Ag to her right lower extremity anterior and posterior ulcers. She again states that she has not been using her lymphedema pumps often, but has been trying to use them more. She does not elevate her leg regularly. She does not use compression. She has not rescheduled her appointment with the lymphedema specialist at the [facility]. She expresses reluctance about lymphedema surgery, stating she knows people who have had surgery and has had numerous complications, as well as healthcare providers that recommend exhausting conservative treatment efforts prior to consideration of surgery. The patient's wound cultures from 02/05/2021 were positive for 1+ Enterococcus faecalis, and rare MRSA. She was sent to the emergency department for IV antibiotic treatment. She received a dose of IV vancomycin 2000mg and was discharged on 10-day courses of doxycycline and Augmentin, which she has completed. Hospital labs were as follows: CBCD: Unremarkable CMP: Unremarkable Lactic acid: Normal INR: Normal The patient was seen by Dr. Desai on 02/16/2021 for [facility]. Aquacel Ag was continued, and the patient was started on Unna boots for compression and treatment of right lower extremity excoriation. Progress of Wound: The patient's wound is slightly improved in size and appearance today. She tolerated Devika well. The rash of her popliteal fossa is significantly improved. She continues to use nystatin powder and ketoconazole cream as instructed. Objective Data Objective Data Vital Signs: Vital Signs Temp Pulse Resp BP 96.1 F L 88 18 168/98 H 07/30/21 08:23 07/30/21 08:23 07/27/21 13:18 07/30/21 08:23 Oxygen Delivery Method Room Air Body Mass Index (BMI) 49.0 Charges/Coding Procedures Integumentary 150xxx-152xx: [id number] Skin sub graft trnk/arm/leg Physical Exam Const alert and no apparent distress General Appearance: cooperative, comfortable and well kempt Nutritional Appearance: morbidly obese HEENT Head and Scalp: normocephalic and atraumatic Neck supple Lymph Lymphatic: lymphedema severe (worse in RLE) Resp normal respiratory effort Cardio Peripheral Pulses: dorsalis pedis pulses present right 2+ Extremity normal capillary refill and no joint enlargement General Extremity: edema right lower extremity mild; Negative for clubbing or cyanosis Skin Rashes: rashes noted distal RLE Narrative: Resolved, Right popliteal fossa Narrative: Intertriginous rash and excoriation improved. Mild erythema still present. Wounds: wounds noted drainage serous, No malodorous, no odor and surrounding erythema Wound Narrative: Posterior RLE ulcer with small amount of slough and devitalized tissue. Subcutaneous layer exposed. No tunneling, undermining, or probing to bone. Trace periulcer erythema present. No periulcer warmth. No purulent or malodorous drainage. Mild tenderness to palpation. Neuro oriented x3, moves all extremities and no focal motor deficits Psych mental status grossly normal, cooperative and affect normal Debridement Note Debridement Note Wound debrided: Posterior RLE Laterality: Right Type of Debridement: Excisional debridement Anesthesia Used: 5% Lidocaine Gel Depth: in the subcutaneous layer Percentage of wound debrided: 100 Instrument Used: 3mm curette Tissue Removed: Slough and vitalized tissue Severity: Fat Layer Exposed Amount of bleeding with debridement: Mild Bleeding Controlled with: Pressure Patient tolerated procedure: Patient tolerated procedure well Post-Debridement Measurements and Additional Note: Post-Debridement Measurements/Treatment WC - Nurse 1 - General Ulcer Assessment Start: 07/02/21 08:40 Freq: Status: Active Protocol: SAL Activity Type Activity Date Activity User E-Sign Co-Sign Detail Recorded Client Recorded Date Recorded By Document 07/02/21 08:41 AK [id number] 07/02/21 08:41 AK Document 07/06/21 13:20 [facility] [id number] 07/06/21 13:22 BMF Document 07/09/21 08:23 KR [id number] 07/09/21 08:27 KR Document 07/13/21 08:18 KR [id number] 07/13/21 08:19 KR Document 07/16/21 08:31 AK [id number] 07/16/21 08:36 AK Document 07/20/21 13:01 KR [id number] 07/20/21 13:02 KR Document 07/23/21 08:58 KR [id number] 07/23/21 09:00 KR Document 07/27/21 13:18 [facility] [id number] 07/27/21 13:27 BM Document 07/30/21 08:23 MT [id number] 07/30/21 08:31 MT 07/02/21 07/06/21 07/09/21 08:41 13:20 08:23 - Today's Visit Information Type of service Follow-up Visit Nurse-only Follow-up Visit (Physician/EMPLOYMENT PROGRAMS ANALYST Visit (Physician/EMPLOYMENT PROGRAMS ANALYST ) ) Arrival Mode Ambulatory,Cane Ambulatory,Cane Ambulatory,Cane Transfer Assistance None Patient Identification Verified (Name & Yes Yes Yes ) Patient Requires Transmission-Based No Precautions Height and Weight Body Mass Index (BMI) 49.0 49.0 49.0 BMI Classification Obese Obese Obese Vital Signs Temperature (97.8 F-99.1 F) 97.1 F L 95.5 F L 96.5 F L Temperature Source Temporal Temporal Temporal Pulse Rate (60-100) 81 101 H Pulse Location Monitor Monitor Respiratory Rate (12-18) 16 Respiratory rate source Observation Oxygen Delivery Method Room Air Blood Pressure (90/60-120/80) 134/85 H 155/87 H Blood Pressure Mean (mm Hg) 101 109 Source Monitor Monitor Position Sitting Semi-Fowlers Blood Pressure Location Left Forearm Right Arm History Since Last Visit- (Skip if this is Patient's initial visit) Have you changed medications since your No No No last visit? Any new allergies or adverse reactions No No No Had a fall/change in ADL's that may No No No increase risk of falls Signs or symptoms of abuse and/or No No No neglect since last visit Have you been in the hospital since your No No No last visit? Has dressing in place as prescribed Yes Yes Yes Has compression in place as prescribed Yes Yes Yes Has offloadiing in place as prescribed N/A N/A N/A Experienced any changes in pain level or No No No management Left Footwear Regular Shoe Regular Shoe Regular Shoe Right Footwear Regular Shoe Regular Shoe Regular Shoe Pain Scale: 0-10 Numeric Is Patient Pain Free? Yes Yes Yes 07/13/21 07/16/21 07/20/21 08:18 08:31 13:01 - Today's Visit Information Type of service Nurse-only Nurse-only Nurse-only Visit Visit Visit Arrival Mode Ambulatory,Cane Ambulatory,Cane Ambulatory,Cane Transfer Assistance Patient Identification Verified (Name & Yes Yes Yes ) Patient Requires Transmission-Based No Precautions Height and Weight Body Mass Index (BMI) 49.0 49.0 49.0 BMI Classification Obese Obese Obese Vital Signs Temperature (97.8 F-99.1 F) 96.0 F L 97.4 F L 97.4 F L Temperature Source Temporal Temporal Temporal Pulse Rate (60-100) 89 77 Pulse Location Monitor Monitor Monitor Respiratory Rate (12-18) Respiratory rate source Oxygen Delivery Method Blood Pressure (90/60-120/80) 161/90 H 151/69 H 131/67 H Blood Pressure Mean (mm Hg) 113 96 88 Source Monitor Monitor Monitor Position Sitting Semi-Fowlers Sitting Blood Pressure Location Right Arm Left Arm Left Arm History Since Last Visit- (Skip if this is Patient's initial visit) Have you changed medications since your No No No last visit? Any new allergies or adverse reactions No No No Had a fall/change in ADL's that may No No No increase risk of falls Signs or symptoms of abuse and/or No No No neglect since last visit Have you been in the hospital since your No No No last visit? Has dressing in place as prescribed Yes Yes Yes Has compression in place as prescribed Yes Yes Yes Has offloadiing in place as prescribed N/A N/A N/A Experienced any changes in pain level or No No No management Left Footwear Regular Shoe Regular Shoe Regular Shoe Right Footwear Regular Shoe Regular Shoe Regular Shoe Pain Scale: 0-10 Numeric Is Patient Pain Free? Yes Yes Yes 07/23/21 07/27/21 07/30/21 08:58 13:18 08:23 [facility] Today's Visit Information Type of service Follow-up Visit Nurse-only Follow-up Visit (Physician/EMPLOYMENT PROGRAMS ANALYST Visit (Physician/EMPLOYMENT PROGRAMS ANALYST ) ) Arrival Mode Ambulatory Ambulatory,Cane Ambulatory,Cane Transfer Assistance None Patient Identification Verified (Name & Yes Yes Yes ) Patient Requires Transmission-Based No Precautions Height and Weight Body Mass Index (BMI) 49.0 49.0 49.0 BMI Classification Obese Obese Obese Vital Signs Temperature (97.8 F-99.1 F) 96.9 F L 96.5 F L 96.1 F L Temperature Source Temporal Temporal Temporal Pulse Rate (60-100) 92 86 88 Pulse Location Monitor Monitor Monitor Respiratory Rate (12-18) 18 Respiratory rate source Observation Oxygen Delivery Method Room Air Blood Pressure (90/60-120/80) 163/91 H 147/79 H 168/98 H Blood Pressure Mean (mm Hg) 115 101 121 Source Monitor Monitor Monitor Position Semi-Fowlers Sitting Sitting Blood Pressure Location Left Arm Left Forearm Left Arm History Since Last Visit- (Skip if this is Patient's initial visit) Have you changed medications since your No No No last visit? Any new allergies or adverse reactions No No No Had a fall/change in ADL's that may No No No increase risk of falls Signs or symptoms of abuse and/or No No No neglect since last visit Have you been in the hospital since your No No No last visit? Has dressing in place as prescribed Yes Yes Yes Has compression in place as prescribed Yes Yes Yes Has offloadiing in place as prescribed N/A N/A N/A Experienced any changes in pain level or No No No management Left Footwear Regular Shoe Regular Shoe Regular Shoe Right Footwear Regular Shoe Regular Shoe Regular Shoe Pain Scale: 0-10 Numeric Is Patient Pain Free? Yes Yes Yes WC - Nurse 1 - General Ulcer Measurement Start: 07/02/21 08:40 Freq: Status: Active Protocol: Activity Type Activity Date Activity User E-Sign Co-Sign Detail Recorded Client Recorded Date Recorded By Document 07/02/21 08:41 AK [id number] 07/02/21 08:41 AK Document 07/09/21 08:23 KR [id number] 07/09/21 08:27 KR Document 07/23/21 08:58 KR [id number] 07/23/21 09:00 KR Document 07/27/21 13:18 BMF [id number] 07/27/21 13:27 BMF Document 07/30/21 08:23 MT [id number] 07/30/21 08:31 MT 07/02/21 07/09/21 07/23/21 08:41 08:23 08:58 W[facility] Center Nurse 1 #8 RLE Post -Current Size (cm) - Length 0.1 1.7 0.2 -Current Size (cm) - Width 0.1 1 0.2 -Current Size (cm) - Depth 0.1 0.2 0.1 -Total Square Cm 0.01 1.7 0.04 -Exudate Amt Medium None Present -Exudate Type Serosanguineous -Wound Margin Distinct, Distinct, Outline Outline Attached Attached -Granulation Amt Medium (34-66%) Small (1-33%) -Granulation Quality Red Presho -Necrosis Amt Small (1-33%) None Present (0 %) -Necrotic Tissue Type Adherent Slough -Structure Exposed -Texture (Irene-wound Skin Appearance) Assessed, Assessed, Scarring Scarring -Moisture (Irene-wound Skin Appearance) Assessed,Dry/ No Abnormality, Scaly Assessed -Color (Irene-wound Skin Appearance) No Abnormality, No Abnormality, Assessed Assessed -Temperature (Irene-wound Skin No Abnormality No Abnormality Appearance) (Pt Warm) (Pt Warm) -Tenderness on Palpation (Irene-wound No No Skin Appearance) -Ulcer Cleansing Soap and Water Rinsed/ Irrigated with Saline -Foul Odor after Cleansing No No -Anesthetic Used 4% Lidocaine 5% Lidocaine Solution Gel Lower Limb Edema Present Right Calf (cm) 69 74 Right Ankle (cm) 33 32 07/27/21 07/30/21 13:18 08:23 Wound Center Nurse 1 #8 RLE Post -Current Size (cm) - Length 0.4 -Current Size (cm) - Width 0.2 -Current Size (cm) - Depth 0.1 -Total Square Cm 0.08 -Exudate Amt None Present None Present -Exudate Type -Wound Margin Flat & Intact Distinct, Outline Attached -Granulation Amt Large (67-100%) Small (1-33%) -Granulation Quality Presho Presho -Necrosis Amt None Present (0 None Present (0 %) %) -Necrotic Tissue Type -Structure Exposed N/A -Texture (Irene-wound Skin Appearance) Scarring Assessed, Scarring -Moisture (Irene-wound Skin Appearance) No Abnormality, No Abnormality, Dry/Scaly Assessed -Color (Irene-wound Skin Appearance) No Abnormality No Abnormality, Assessed -Temperature (Irene-wound Skin No Abnormality No Abnormality Appearance) (Pt Warm) (Pt Warm) -Tenderness on Palpation (Irene-wound No No Skin Appearance) -Ulcer Cleansing Soap and Water Rinsed/ Irrigated with Saline -Foul Odor after Cleansing No No -Anesthetic Used 5% Lidocaine Gel Lower Limb Edema Present Yes Right Calf (cm) 67 Right Ankle (cm) 28.5 WC - Nurse 2 - General Ulcer CM Notes Start: 07/02/21 08:40 Freq: Status: Active Protocol: Activity Type Activity Date Activity User E-Sign Co-Sign Detail Recorded Client Recorded Date Recorded By Document 07/09/21 08:43 PL Desktop 07/09/21 08:45 PL Document 07/23/21 09:36 PL Desktop 07/23/21 09:36 PL 07/09/21 07/23/21 08:43 09:36 Wound Center Nurse 2 #8 RLE Post -Time 08:32 09:05 -Correct Patient Yes Yes -Correct Side, Site, Position Yes Yes -Correct Procedure Yes Yes -Procedure Performed Yes Yes -Type of Procedure Debridement Debridement -Clinical Debridement Subcutaneous Subcutaneous -Tissue Removed Subcutaneous Subcutaneous -Post Debridement (cm) - Length 1.7 0.5 -Post Debridement (cm) - Width 1.0 0.5 -Post Debridement (cm) - Depth 0.1 0.1 -Total Square (Post) (cm) 1.70 0.25 -Area of Debridement (cm) - Length 1.7 0.5 -Area of Debridement (cm) - Width 1.0 0.5 -Total Square (Area) (cm) 1.70 0.25 -Tunneling No No -Undermining/Tunneling No No -Circular Undermining No No -Wound/Ulcer Outcome Not Healed Not Healed -Ulcer Cleansing Rinsed/ Rinsed/ Irrigated with Irrigated with Saline Saline -Foul Odor after Cleansing No No -Bioengineered Tissue Yes No -Type of Bioengineered Tissue Epifix 18mm Disc -Expiration Date 05/04/26 -Product Lot Number [id number] -Percent Used 100 -Bleeding Controlled with Pressure Pressure -Treatment Response Procedure Procedure Tolerated Well Tolerated Well -Debridement - Subq, 1st 20sq cm No Yes -Apply Skin Sub - 1st 25 sq cm - Legs 1 -Epifix 18mm Disc 3 Pain Scale: 0-10 Numeric Is Patient Pain Free? Yes Yes WC - Nurse 3 - General Ulcer D/C NN Start: 07/02/21 08:40 Freq: Status: Active Protocol: Activity Type Activity Date Activity User E-Sign Co-Sign Detail Recorded Client Recorded Date Recorded By Document 07/02/21 10:55 AK [id number] 07/02/21 10:57 AK Document 07/06/21 13:20 BMF [id number] 07/06/21 13:22 BMF Document 07/09/21 08:44 KR [id number] 07/09/21 08:44 KR Document 07/13/21 08:18 KR [id number] 07/13/21 08:19 KR Document 07/16/21 08:31 AK [id number] 07/16/21 08:36 AK Document 07/20/21 13:01 KR [id number] 07/20/21 13:02 KR Edit Result 07/20/21 13:01 KR (1) [id number] 07/21/21 07:07 PL Document 07/23/21 09:16 KR [id number] 07/23/21 09:17 KR Document 07/27/21 13:18 BMF [id number] 07/27/21 13:27 BMF (1) Right - Multi-Layered Wrap Application => Unna Boot - Right => ($) 07/02/21 07/06/21 07/09/21 10:55 13:20 08:44 Wound Care Nurse 3 #8 RLE Post -Ulcer Cleansing -Foul Odor after Cleansing No -Negative Pressure Wound Therapy N/A -Primary Dressing Applied -Other Dressing epifix intact, hydrogel -Primary Dressing Covered/Secured with Dry Gauze Dry Gauze Dry Gauze, Secured with Tape -Other Covering -Promogran Devika Matter Right -Multi-Layered Wrap Application Unna Boot - Unna Boot - Unna Boot - Right ($) Right ($) Right ($) -Compression Wrap Unna Boot ($) ( single) Treatment Response Procedure Tolerated Well Vital Signs Temperature (97.8 F-99.1 F) 95.5 F L Temperature Source Temporal Pulse Rate (60-100) 81 Pulse Location Monitor Respiratory Rate (12-18) 16 Respiratory rate source Observation Oxygen Delivery Method Room Air Blood Pressure (90/60-120/80) 134/85 H Blood Pressure Mean (mm Hg) 101 Source Monitor Position Sitting Blood Pressure Location Left Forearm Pain Scale: 0-10 Numeric Is Patient Pain Free? Yes Yes Yes WC - Visit Discharge Discharge Condition Stable Stable Stable Ambulatory Status Ambulatory,Cane Ambulatory,Cane Ambulatory,Cane Transportation Private Auto Private Auto Private Auto Medication Reconcilliation completed & Yes provided to patient/care provider Clinical Summary of Care Provided Yes 07/13/21 07/16/21 07/20/21 08:18 08:31 13:01 Wound Care Nurse 3 #8 RLE Post -Ulcer Cleansing Soap and Water -Foul Odor after Cleansing -Negative Pressure Wound Therapy -Primary Dressing Applied -Other Dressing ABD pad -Primary Dressing Covered/Secured with Dry Gauze -Other Covering -Promogran Devika Matter Right -Multi-Layered Wrap Application Unna Boot - Unna Boot - Unna Boot - Right ($) Right ($) Right ($) -Compression Wrap Unna Boot ($) ( single) Treatment Response Vital Signs Temperature (97.8 F-99.1 F) 96.0 F L 97.4 F L 97.4 F L Temperature Source Temporal Temporal Temporal Pulse Rate (60-100) 89 77 Pulse Location Monitor Monitor Monitor Respiratory Rate (12-18) Respiratory rate source Oxygen Delivery Method Blood Pressure (90/60-120/80) 161/90 H 151/69 H 131/67 H Blood Pressure Mean (mm Hg) 113 96 88 Source Monitor Monitor Monitor Position Sitting Semi-Fowlers Sitting Blood Pressure Location Right Arm Left Arm Left Arm Pain Scale: 0-10 Numeric Is Patient Pain Free? Yes Yes Yes WC - Visit Discharge Discharge Condition Stable Stable Stable Ambulatory Status Ambulatory,Cane Ambulatory,Cane Ambulatory,Cane Transportation Private Auto Private Auto Private Auto Medication Reconcilliation completed & provided to patient/care provider Clinical Summary of Care Provided 07/23/21 07/27/21 09:16 13:18 Wound Care Nurse 3 #8 RLE Post -Ulcer Cleansing Rinsed/ Soap and Water Irrigated with Saline -Foul Odor after Cleansing No -Negative Pressure Wound Therapy -Primary Dressing Applied Promogran Promogran Devika Matter Devika Matter -Other Dressing -Primary Dressing Covered/Secured with Dry Gauze, Dry Gauze Secured with Tape -Other Covering unna boot -Promogran Devika Matter 1 1 Right -Multi-Layered Wrap Application Unna Boot - Unna Boot - Right ($) Right ($) -Compression Wrap Unna Boot ($) ( single) Treatment Response Procedure Tolerated Well Vital Signs Temperature (97.8 F-99.1 F) 96.5 F L Temperature Source Temporal Pulse Rate (60-100) 86 Pulse Location Monitor Respiratory Rate (12-18) 18 Respiratory rate source Observation Oxygen Delivery Method Room Air Blood Pressure (90/60-120/80) 147/79 H Blood Pressure Mean (mm Hg) 101 Source Monitor Position Sitting Blood Pressure Location Left Forearm Pain Scale: 0-10 Numeric Is Patient Pain Free? Yes Yes WC - Visit Discharge Discharge Condition Stable Stable Ambulatory Status Ambulatory,Cane Ambulatory,Cane Transportation Private Auto Private Auto Medication Reconcilliation completed & provided to patient/care provider Clinical Summary of Care Provided Assessment/Plan Assessment/Plan (1) Ulcer of right lower extremity with fat layer exposed: CODE(S): L97.912 - Non-pressure chronic ulcer of unspecified part of right lower leg with fat layer exposed (2) Venous ulcer of right leg: CODE(S): I83.019 - Varicose veins of right lower extremity with ulcer of unspecified site; L97.919 - Non-pressure chronic ulcer of unspecified part of right lower leg with unspecified severity (3) Nonhealing ulcer of right lower extremity: CODE(S): L97.919 - Non-pressure chronic ulcer of unspecified part of right lower leg with unspecified severity QUALIFIERS: Non-pressure ulcer stage: with fat layer exposed Qualified Code(s): L97.912 - Non-pressure chronic ulcer of unspecified part of right lower leg with fat layer exposed (4) Venous insufficiency: (5) Lymphedema: CODE(S): I89.0 - Lymphedema, not elsewhere classified (6) Morbid obesity: CODE(S): E66.01 - Morbid (severe) obesity due to excess calories (7) Intertrigo: CODE(S): L30.4 - Erythema intertrigo PLAN: Patient's intertriginous rash of the right popliteal fossa has improved with the use of ketoconazole cream and nystatin powder, and these will be continued. She was instructed on cleaning this area with antibacterial soap and water and ensuring that the area stays dry. She may use clean ABD pads or a dry washcloth to tuck into the right popliteal fossa skin fold to keep the area dry. Given the duration of the wound and failure of the wound (posterior RLE) to respond to standard wound care, we again applied for advanced skin substitutes (Puraply, Nushield, Apligraf). We were approved for Apligraf and EpiFix. She has shown significant improvement in her wound size and appearance with the recent use of EpiFix. Debridement performed today as annotated above. EpiFix #6 applied today (disc); 100% of the product was used. Small amount of hydrogel was applied atop EpiFix. Covered with Adaptic touch and Steri-Strips. A new Unna boot was applied today. The patient's right lower extremity swelling and drainage have significantly improved with the use of compression (Unna boots and 3M wraps). Patient was instructed to keep her right lower extremity wraps clean and dry. If at anytime the wrap becomes too tight or uncomfortable, she is to elevate her leg. If she experiences numbness, tingling, or discoloration of the toes that does not subside with leg elevation, she is to notify the wound healing center and remove the wrap. Compression: Unna boot to right lower extremity. We are still looking into getting the patient appropriately sized CircAid's. Per case investigator, the rep should be calling the patient to arrange new sizing. We will follow-up with the rep. Lymphedema pumps should be utilized for 1 hour 3 times per day. If this is not well-tolerated, the patient should continue to use the pumps as long and as frequently as possible, working toward this goal. Off-loading: The patient has been instructed to avoid pressure and friction on the affected areas. Reposition every 2 hours at minimum. Avoid prolonged standing and/or dangling of legs. When seated, feet should be elevated at chest level. Frequent ambulation is encouraged. Diet: Patient encouraged to increase protein intake while taking caution to avoid high carbohydrate and/or sugar intake. Labs/cultures/imaging: The patient's wound cultures from 02/05/2021 were positive for 1+ Enterococcus faecalis, and rare MRSA; she was sent to the emergency department for IV antibiotic treatment. She received a dose of IV vancomycin 2000mg and was discharged on 10-day courses of doxycycline and Augmentin, which she has completed. Repeat cultures from 03/12/2021 were negative. Venous and arterial studies were previously ordered in September 2020, though the patient never had these done. These were again ordered in late December 2020, but were not completed. Return to clinic on Tuesdays and Fridays for nurse visits; at that time, hydrogel will be applied atop Adaptic touch, and a new Unna boot will be applied to the right lower extremity. Return in 2 weeks for reevaluation with provider. Patient was instructed to return sooner or report to the emergency room should symptoms worsen, or new symptoms arise. Note: [employer] speech recognition concierge receptionist software was used to create portions of this document. Sound-alike and misspelled words, as well as other concierge receptionist errors may be contained in the documentation.
== END 2021-07-31 23:59 | disposition home or self-care (01) ==
LOC: WC 08:15
PROVIDERS: PCP Family Medicine; Visit Provider Nurse Practitioner Family
DX: I83.018 Varicose veins of right lower extremity with ulcer other part of lower leg (principal); L97.812 Non-pressure chronic ulcer of other part of right lower leg with fat layer exposed; I48.91 Unspecified atrial fibrillation; E66.01 Morbid (severe) obesity due to excess calories; Z68.42 Body mass index [BMI] 45.0-49.9, adult; L30.4 Erythema intertrigo; I89.0 Lymphedema, not elsewhere classified; E03.9 Hypothyroidism, unspecified; Z79.01 Long term (current) use of anticoagulants; Z79.890 Hormone replacement therapy; Z79.899 Other long term (current) drug therapy
CPT/HCPCS: 11042; 15271; 29580; 99213; Q4186; G0463

== ENCOUNTER 2021-08-31 08:00 | Outpatient (RCR) | payer MEDICAID, SELFPAY ==
[2021-08-01 00:23] VITALS: BP 168/98; PULSE 88; RESP 18; TEMP 35.6; BMI 49.0
[2021-08-03 11:23] VITALS: BP 170/98; PULSE 99; TEMP 35.8; BMI 49.0
[2021-08-10 11:35] VITALS: BP 170/93; PULSE 92; RESP 22; TEMP 36.8; BMI 49.0
[2021-08-13 08:23] VITALS: BP 163/97; PULSE 113; TEMP 36.1; BMI 49.0
--- NOTE | 2021-08-13 08:47 | PCM.WC.PN ---
History of Present Illness Date of Service: 08/13/21 Chief Complaint: Ulcers of right lower extremity History of Wound: [facility] for evaluation and treatment of bilateral lower leg ulcers. The patient is [facility] from treatment of prior lower extremity ulcers. She has a PMH significant for chronic lymphedema, venous insufficiency, atrial fibrillation (on Eliquis), morbid obesity, and hypothyroidism. She reported development of her posterior right lower leg ulcer in April 2019. She initially was using Manuka honey to this ulcer, but then started using Vaseline instead. She reported her anterior right lower extremity ulcer developed in August, and she had been applying Vaseline to this daily. Her anterior left lower extremity ulcer developed approximately 1 week prior to her initial January 2020 appt, and she had been applying Vaseline to this daily as well. She notes that approximately 4 to 6 weeks prior, the ulcer on her posterior right lower leg began increasing in soreness. She has lymphedema pumps at home, but had not been using these due to reported pain with use which is related to her ulcers. She does not use compression at home. She reports frequent dangling of her legs while seated at her computer for work. She does not frequently elevate her feet when seated. The patient denied any fever, chills, nausea, vomiting, or diarrhea on initial evaluation. She denied any increasing redness or swelling of the affected area at that time as well. She did note foul-smelling drainage from her right lower extremity. She had not been on any recent antibiotics prior to evaluation. She reported having lab work done approximately 6 weeks prior; these records were requested for review multiple times but never obtained. Lab work was ordered and completed in February 2020 and was significant for the following: CBCD: RBC 3.83 (L), hemoglobin 11.3 (L), hematocrit 34.8 (L), platelets 143 (L) ESR: 93 (H) CMP: Albumin 3.0 (L) CRP: 111 (H) Prealbumin 18.6 (L) She had lower extremity arterial studies completed 05/16/16 which showed relatively normal arterial perfusion to ankle level bilaterally. Triphasic waveforms were noted at ankle level bilaterally. Resting ankle-brachial indices were bilaterally normal. The right digital-brachial index is normal, consistent with normal arterial perfusion at distal, small-vessel level in the right lower extremity. The left digital-brachial index is mildly diminished, suggesting the presence of mild, distal, small-vessel arterial occlusive disease in the left lower extremity. Venous and arterial studies were ordered on 09/11/2020, and the patient was scheduled for an appointment in September for these tests. However the tests were never completed. The patient has continually expressed reluctance regarding wound work-up, and noncompliance with orders. Wound cultures collected on 01/03/2020 were positive for 3+ Aeromonas hydrophilia/caviae, 2+ Citrobacter braakii, 1+ Proteus mirabilis, rare Staphylococus aureus, anaerobic cocci, actinomyces odontolyticus, Bacteroides fragilis; beta-lactamase positive. She completed courses of Levaquin and Augmentin. Weeks later, she developed redness and warmth of a localized lymphedema mass of her right medial thigh; this resolved following a 14-day course of Levaquin and Augmentin. She has continued to have fluctuating redness and warmth of this right medial thigh lymphedema mass. She has completed several courses of antibiotics. Keflex and Levaquin have been of benefit. Doxycycline was not felt to be of significant benefit. A referral to a lymphedema specialist at the [facility] was made, and the importance of scheduling this appointment was discussed with the patient. She has not yet scheduled this appointment. Several conversations have been had with the patient regarding her need for compression and lymphedema management in order for her wounds to heal. She refuses compression. She is noncompliant with elevating her legs. She states she is unable to use her lymphedema pumps at this time due to the size of her legs. Since January 2020, several wound care treatments have been utilized, including Aquacel, Aquacel Ag, Froilan. She has completed several applications of advanced skin substitutes (Apligraf, Puraply, and Nushield). She initially completed 6 applications of Puraply, the last of which was placed on 03/13/2020. She was subsequently approved for 10 additional applications of organogenesis products, which were applied between 05/15/2020 and 08/07/2020 (1 Puraply, 5 Apligraf, and 4 Nushield). Progress of Wound: Patient has had worsening of her wound size and appearance in recent weeks. She has had copious amounts of clear drainage from her right lower extremity, particularly from the anterior RLE. She has severe excoriation of the anterior RLE, as well as new areas of ulceration. She reports she has been changing her super sorb dressings approximately 4 times daily, and they have been saturated when changed. She is using Aquacel Ag to her right lower extremity anterior and posterior ulcers. She again states that she has not been using her lymphedema pumps often, but has been trying to use them more. She does not elevate her leg regularly. She does not use compression. She has not rescheduled her appointment with the lymphedema specialist at the [facility]. She expresses reluctance about lymphedema surgery, stating she knows people who have had surgery and has had numerous complications, as well as healthcare providers that recommend exhausting conservative treatment efforts prior to consideration of surgery. The patient's wound cultures from 02/05/2021 were positive for 1+ Enterococcus faecalis, and rare MRSA. She was sent to the emergency department for IV antibiotic treatment. She received a dose of IV vancomycin 2000mg and was discharged on 10-day courses of doxycycline and Augmentin, which she has completed. Hospital labs were as follows: CBCD: Unremarkable CMP: Unremarkable Lactic acid: Normal INR: Normal The patient was seen by Dr. Desai on 02/16/2021 for [facility]. Aquacel Ag was continued, and the patient was started on Unna boots for compression and treatment of right lower extremity excoriation. Progress of Wound: Patient's last EpiFix dressing came off on Monday08/03/21 when her Unna Boot and outer dressing were removed. Froilan was applied as wound dressing, which was changed on Saturday 08/05 and Thursday 08/10. Her wound is again improved in size and appearance, however she has a small skin tear from where dry skin had adhered to the wound dressing. The patient denies fever, general malaise, or poor appetite. The patient has not had increased redness, swelling, or purulent/malodorous drainage from affected area. Objective Data Objective Data Vital Signs: Vital Signs Temp Pulse Resp BP 96.9 F L 113 H 22 H 163/97 H 08/13/21 08:23 08/13/21 08:23 08/10/21 11:35 08/13/21 08:23 Body Mass Index (BMI) 49.0 Charges/Coding Procedures Integumentary 150xxx-152xx: 68187 Skin sub graft trnk/arm/leg Physical Exam Const alert and no apparent distress General Appearance: cooperative, comfortable and well kempt Nutritional Appearance: morbidly obese HEENT Head and Scalp: normocephalic and atraumatic Neck supple Lymph Lymphatic: lymphedema severe (worse in RLE) Resp normal respiratory effort Cardio Peripheral Pulses: dorsalis pedis pulses present right 2+ Extremity normal capillary refill and no joint enlargement General Extremity: edema right lower extremity mild; Negative for clubbing or cyanosis Skin Rashes: rashes noted distal RLE Narrative: Resolved, Right popliteal fossa Narrative: Intertriginous rash and excoriation resolved Wounds: wounds noted drainage serous, No malodorous, no odor and surrounding erythema Wound Narrative: Posterior RLE ulcer with scant amount of slough and devitalized tissue. Small skin tear anterior to the wound. (Measured as a cluster). Subcutaneous layer exposed. No tunneling, undermining, or probing to bone. Trace periulcer erythema present. No periulcer warmth. No purulent or malodorous drainage. No tenderness to palpation. Neuro oriented x3, moves all extremities and no focal motor deficits Psych mental status grossly normal, cooperative and affect normal Debridement Note Debridement Note Wound debrided: Posterior RLE ulcer Laterality: Right Type of Debridement: Excisional debridement Anesthesia Used: 4% Lidocaine Solution Depth: in the subcutaneous layer Percentage of wound debrided: 100 Instrument Used: 3mm curette Tissue Removed: Slough and devitalized tissue Severity: Fat Layer Exposed Amount of bleeding with debridement: Mild Bleeding Controlled with: Pressure Patient tolerated procedure: Patient tolerated procedure well Post-Debridement Measurements and Additional Note: Post-Debridement Measurements/Treatment CHRISTIANNE - Nurse 1 - General Ulcer Assessment Start: 08/03/21 11:22 Freq: Status: Active Protocol: SAL Activity Type Activity Date Activity User E-Sign Co-Sign Detail Recorded Client Recorded Date Recorded By Document 08/03/21 11:23 KR [id number] 08/03/21 11:24 KR Document 08/10/21 11:35 DL [id number] 08/10/21 11:42 DL Document 08/13/21 08:23 AK [id number] 08/13/21 08:29 AK 08/03/21 08/10/2122 11:23 11:35 08:23 - Today's Visit Information Type of service Nurse-only Nurse-only Follow-up Visit Visit Visit (Physician/SUPERVISOR STAVE CUTTING ) Arrival Mode Ambulatory Ambulatory Ambulatory Transfer Assistance None Patient Identification Verified (Name & Yes Yes No ) Patient Requires Transmission-Based No No Precautions Safety Precautions NA Height and Weight Body Mass Index (BMI) 49.0 49.0 49.0 BMI Classification Obese Obese Obese Vital Signs Temperature (97.8 F-99.1 F) 96.5 F L 98.2 F 96.9 F L Temperature Source Temporal Temporal Temporal Pulse Rate (60-100) 99 92 113 H Pulse Location Monitor Monitor Monitor Respiratory Rate (12-18) 22 H Respiratory rate source Observation Blood Pressure (90/60-120/80) 170/98 H 170/93 H 163/97 H Blood Pressure Mean (mm Hg) 122 118 119 Source Monitor Monitor Monitor Position Sitting Blood Pressure Location Right Arm History Since Last Visit- (Skip if this is Patient's initial visit) Have you changed medications since your No No No last visit? Any new allergies or adverse reactions No No No Had a fall/change in ADL's that may No No No increase risk of falls Signs or symptoms of abuse and/or No No No neglect since last visit Have you been in the hospital since your No No No last visit? Has dressing in place as prescribed Yes Yes Yes Has compression in place as prescribed Yes Yes Yes Has offloadiing in place as prescribed N/A N/A N/A Experienced any changes in pain level or No No No management Left Footwear Regular Shoe Regular Shoe Right Footwear Regular Shoe Regular Shoe Pain Scale: 0-10 Numeric Is Patient Pain Free? Yes Yes Yes - Nurse 1 - General Ulcer Measurement Start: 08/03/21 11:22 Freq: Status: Active Protocol: Activity Type Activity Date Activity User E-Sign Co-Sign Detail Recorded Client Recorded Date Recorded By Document 08/03/21 12:49 KR [id number] 08/03/21 12:49 KR Document 08/10/21 11:35 DL [id number] 08/10/21 11:42 DL Document 08/13/21 08:23 AK [id number] 08/13/21 08:29 AK 08/03/21 08/10/2122 12:49 11:35 08:23 #8 RLE Post -Combined with other wound No -Current Size (cm) - Length 1.8 -Current Size (cm) - Width 0.4 -Current Size (cm) - Depth 0.1 -Total Square Cm 0.72 -Photo Taken No No -Epithelialization Large 67-100% -Tunneling No -Undermining/Tunneling No -Circular Undermining No -Exudate Amt Small Small -Exudate Type Serosanguineous Serosanguineous -Wound Margin Distinct, Flat & Intact Outline Attached -Granulation Amt Large (67-100%) Large (67-100%) -Granulation Quality Cortez Red -Slough/Fibrin Yes -Necrosis Amt Small (1-33%) Small (1-33%) -Necrotic Tissue Type Adherent Slough -Structure Exposed N/A N/A -Texture (Irene-wound Skin Appearance) Localized Edema Assessed, ,Scarring Localized Edema -Moisture (Irene-wound Skin Appearance) No Abnormality Assessed,Dry/ Scaly -Color (Irene-wound Skin Appearance) No Abnormality Assessed -Temperature (Irene-wound Skin No Abnormality No Abnormality Appearance) (Pt Warm) (Pt Warm) -Tenderness on Palpation (Irene-wound No No Skin Appearance) -Ulcer Cleansing Soap and Water Wound Cleanser -Foul Odor after Cleansing No No -Anesthetic Used 4% Lidocaine Solution Wound Center Nurse 1 Lower Limb Edema Present Yes Right Calf (cm) 68 66.0 Right Ankle (cm) 28.5 31.0 WC - Nurse 2 - General Ulcer CM Notes Start: 08/03/21 11:22 Freq: Status: Active Protocol: Activity Type Activity Date Activity User E-Sign Co-Sign Detail Recorded Client Recorded Date Recorded By Document 08/13/21 08:37 ASHLY [id number] 08/13/21 08:43 ASHLY 08/13/21 08:37 Wound Center Nurse 2 #8 RLE Post -Time 08:41 -Correct Patient Yes -Correct Side, Site, Position Yes -Correct Procedure Yes -Procedure Performed Yes -Type of Procedure Debridement -Clinical Debridement Subcutaneous -Tissue Removed Subcutaneous -Post Debridement (cm) - Length 2.0 -Post Debridement (cm) - Width 0.5 -Post Debridement (cm) - Depth 0.1 -Total Square (Post) (cm) 1.00 -Area of Debridement (cm) - Length 2.0 -Area of Debridement (cm) - Width 0.5 -Total Square (Area) (cm) 1.00 -Tunneling No -Undermining/Tunneling No -Circular Undermining No -Wound/Ulcer Outcome Not Healed -Ulcer Cleansing Rinsed/ Irrigated with Saline -Foul Odor after Cleansing No -Bioengineered Tissue Yes -Type of Bioengineered Tissue Epifix 18mm Disc -Expiration Date 04/03/26 -Product Lot Number [id number] -Percent Used 100 -Lot number of Saline Used -Bleeding Controlled with Pressure -Treatment Response Procedure Tolerated Well -Offloading No -Debridement - Subq, 1st 20sq cm No -Apply Skin Sub - 1st 25 sq cm - Legs 1 -Epifix 18mm Disc 3 Pain Scale: 0-10 Numeric Is Patient Pain Free? Yes WC - Nurse 3 - General Ulcer D/C NN Start: 08/03/21 11:22 Freq: Status: Active Protocol: Activity Type Activity Date Activity User E-Sign Co-Sign Detail Recorded Client Recorded Date Recorded By Document 08/03/21 11:23 KR [id number] 08/03/21 11:24 KR Document 08/06/21 13:35 MT [id number] 08/06/21 13:47 MT Document 08/10/21 11:35 DL [id number] 08/10/21 11:42 DL 08/03/21 08/06/21 08/10/21 11:23 13:35 11:35 Vital Signs Temperature (97.8 F-99.1 F) 96.5 F L 98.2 F Temperature Source Temporal Temporal Pulse Rate (60-100) 99 92 Pulse Location Monitor Monitor Respiratory Rate (12-18) 22 H Respiratory rate source Observation Blood Pressure (90/60-120/80) 170/98 H 170/93 H Blood Pressure Mean (mm Hg) 122 118 Source Monitor Monitor Position Sitting Blood Pressure Location Right Arm Pain Scale: 0-10 Numeric Is Patient Pain Free? Yes Yes Yes Wound Care Nurse 3 #8 RLE Post -Ulcer Cleansing Soap and Water Soap and Water Rinsed/ Irrigated with Saline -Foul Odor after Cleansing No -Primary Dressing Applied Promogran Froilan Matter -Primary Dressing Covered/Secured with Dry Gauze, Dry Gauze & Dry Gauze & Secured with Roll Gauze, Roll Gauze, Tape Secured with Secured with Tape Tape -Promogran 1 -Promogran Froilan Matter 1 Right -Multi-Layered Wrap Application Unna Boot - Unna Boot - Unna Boot - Right ($) Right ($) Right ($) Treatment Response Procedure Tolerated Well WC - Visit Discharge Discharge Condition Stable Stable Stable Ambulatory Status Ambulatory,Cane Ambulatory Ambulatory Transportation Private Auto Private Auto Private Auto Medication Reconcilliation completed & No provided to patient/care provider Clinical Summary of Care Provided Yes Notes: froilan not available promogran used Assessment/Plan Assessment/Plan (1) Ulcer of right lower extremity with fat layer exposed: CODE(S): L97.912 - Non-pressure chronic ulcer of unspecified part of right lower leg with fat layer exposed (2) Venous ulcer of right leg: CODE(S): I83.019 - Varicose veins of right lower extremity with ulcer of unspecified site; L97.919 - Non-pressure chronic ulcer of unspecified part of right lower leg with unspecified severity (3) Nonhealing ulcer of right lower extremity: CODE(S): L97.919 - Non-pressure chronic ulcer of unspecified part of right lower leg with unspecified severity QUALIFIERS: Non-pressure ulcer stage: with fat layer exposed Qualified Code(s): L97.912 - Non-pressure chronic ulcer of unspecified part of right lower leg with fat layer exposed (4) Venous insufficiency: (5) Lymphedema: CODE(S): I89.0 - Lymphedema, not elsewhere classified (6) Morbid obesity: CODE(S): E66.01 - Morbid (severe) obesity due to excess calories (7) Intertrigo: CODE(S): L30.4 - Erythema intertrigo PLAN: Patient's intertriginous rash of the right popliteal fossa has resolved with the use of ketoconazole cream and nystatin powder; nystatin powder will be continued. She was instructed on cleaning this area with antibacterial soap and water and ensuring that the area stays dry. She may use clean ABD pads or a dry washcloth to tuck into the right popliteal fossa skin fold to keep the area dry. Given the duration of the wound and failure of the wound (posterior RLE) to respond to standard wound care, we again applied for advanced skin substitutes (Puraply, Nushield, Apligraf). We were approved for Apligraf and EpiFix. She has shown significant improvement in her wound size and appearance with the recent use of EpiFix. Debridement performed today as annotated above. EpiFix #7 applied today (disc); 100% of the product was used. Small amount of hydrogel was applied atop EpiFix. Covered with Adaptic touch and Steri-Strips. A new Unna boot was applied today. The patient's right lower extremity swelling and drainage have significantly improved with the use of compression (Unna boots and 3M wraps). Patient was instructed to keep her right lower extremity wraps clean and dry. If at anytime the wrap becomes too tight or uncomfortable, she is to elevate her leg. If she experiences numbness, tingling, or discoloration of the toes that does not subside with leg elevation, she is to notify the wound healing center and remove the wrap. Compression: Unna boot to right lower extremity. We are still looking into getting the patient appropriately sized CircAid's. Per correctional case manager, the rep should be calling the patient to arrange new sizing. We will follow-up with the rep. Lymphedema pumps should be utilized for 1 hour 3 times per day. If this is not well-tolerated, the patient should continue to use the pumps as long and as frequently as possible, working toward this goal. Off-loading: The patient has been instructed to avoid pressure and friction on the affected areas. Reposition every 2 hours at minimum. Avoid prolonged standing and/or dangling of legs. When seated, feet should be elevated at chest level. Frequent ambulation is encouraged. Diet: Patient encouraged to increase protein intake while taking caution to avoid high carbohydrate and/or sugar intake. Labs/cultures/imaging: The patient's wound cultures from 02/05/2021 were positive for 1+ Enterococcus faecalis, and rare MRSA; she was sent to the emergency department for IV antibiotic treatment. She received a dose of IV vancomycin 2000mg and was discharged on 10-day courses of doxycycline and Augmentin, which she has completed. Repeat cultures from 03/12/2021 were negative. Venous and arterial studies were previously ordered in September 2020, though the patient never had these done. These were again ordered in late December 2020, but were not completed. Return to clinic on Tuesdays for nurse visit; at that time, hydrogel will be applied atop Adaptic touch, and a new Unna boot will be applied to the right lower extremity. Return in 1 week for reevaluation with provider. Patient was instructed to return sooner or report to the emergency room should symptoms worsen, or new symptoms arise. Note: [employer] speech recognition raw sampler software was used to create portions of this document. Sound-alike and misspelled words, as well as other raw sampler errors may be contained in the documentation.
[2021-08-17 14:29] VITALS: TEMP 36.2; BMI 49.0
--- NOTE | 2021-08-20 10:53 | PN.PCM_ITS ---
History of Present Illness Date of Service: 08/20/21 Chief Complaint: Ulcers of right lower extremity History of Wound: [facility] for evaluation and treatment of bilateral lower leg ulcers. The patient is [facility] from treatment of prior lower extremity ulcers. She has a PMH significant for chronic lymphedema, venous insufficiency, atrial fibrillation (on Eliquis), morbid obesity, and hypothyroidism. She reported development of her posterior right lower leg ulcer in April 2019. She initially was using Manuka honey to this ulcer, but then started using Vaseline instead. She reported her anterior right lower extremity ulcer developed in August, and she had been applying Vaseline to this daily. Her anterior left lower extremity ulcer developed approximately 1 week prior to her initial January 2020 appt, and she had been applying Vaseline to this daily as well. She notes that approximately 4 to 6 weeks prior, the ulcer on her posterior right lower leg began increasing in soreness. She has lymphedema pumps at home, but had not been using these due to reported pain with use which is related to her ulcers. She does not use compression at home. She reports frequent dangling of her legs while seated at her computer for work. She does not frequently elevate her feet when seated. The patient denied any fever, chills, nausea, vomiting, or diarrhea on initial evaluation. She denied any increasing redness or swelling of the affected area at that time as well. She did note foul-smelling drainage from her right lower extremity. She had not been on any recent antibiotics prior to evaluation. She reported having lab work done approximately 6 weeks prior; these records were requested for review multiple times but never obtained. Lab work was ordered and completed in February 2020 and was significant for the following: CBCD: RBC 3.83 (L), hemoglobin 11.3 (L), hematocrit 34.8 (L), platelets 143 (L) ESR: 93 (H) CMP: Albumin 3.0 (L) CRP: 111 (H) Prealbumin 18.6 (L) She had lower extremity arterial studies completed 05/16/16 which showed relatively normal arterial perfusion to ankle level bilaterally. Triphasic waveforms were noted at ankle level bilaterally. Resting ankle-brachial indices were bilaterally normal. The right digital-brachial index is normal, consistent with normal arterial perfusion at distal, small-vessel level in the right lower extremity. The left digital-brachial index is mildly diminished, suggesting the presence of mild, distal, small-vessel arterial occlusive disease in the left lower extremity. Venous and arterial studies were ordered on 09/11/2020, and the patient was scheduled for an appointment in September for these tests. However the tests were never completed. The patient has continually expressed reluctance regarding wound work-up, and noncompliance with orders. Wound cultures collected on 01/03/2020 were positive for 3+ Aeromonas hydrophilia/caviae, 2+ Citrobacter braakii, 1+ Proteus mirabilis, rare Staphylococus aureus, anaerobic cocci, actinomyces odontolyticus, Bacteroides fragilis; beta-lactamase positive. She completed courses of Levaquin and Augmentin. Weeks later, she developed redness and warmth of a localized lymphedema mass of her right medial thigh; this resolved following a 14-day course of Levaquin and Augmentin. She has continued to have fluctuating redness and warmth of this right medial thigh lymphedema mass. She has completed several courses of antibiotics. Keflex and Levaquin have been of benefit. Doxycycline was not felt to be of significant benefit. A referral to a lymphedema specialist at the [facility] was made, and the importance of scheduling this appointment was discussed with the patient. She has not yet scheduled this appointment. Several conversations have been had with the patient regarding her need for compression and lymphedema management in order for her wounds to heal. She refuses compression. She is noncompliant with elevating her legs. She states she is unable to use her lymphedema pumps at this time due to the size of her legs. Since January 2020, several wound care treatments have been utilized, including Aquacel, Aquacel Ag, Froilan. She has completed several applications of advanced skin substitutes (Apligraf, Puraply, and Nushield). She initially completed 6 applications of Puraply, the last of which was placed on 03/13/2020. She was subsequently approved for 10 additional applications of organogenesis products, which were applied between 05/15/2020 and 08/07/2020 (1 Puraply, 5 Apligraf, and 4 Nushield). Progress of Wound: Patient has had worsening of her wound size and appearance in recent weeks. She has had copious amounts of clear drainage from her right lower extremity, particularly from the anterior RLE. She has severe excoriation of the anterior RLE, as well as new areas of ulceration. She reports she has been changing her super sorb dressings approximately 4 times daily, and they have been saturated when changed. She is using Aquacel Ag to her right lower extremity anterior and posterior ulcers. She again states that she has not been using her lymphedema pumps often, but has been trying to use them more. She does not elevate her leg regularly. She does not use compression. She has not rescheduled her appointment with the lymphedema specialist at the [facility]. She expresses reluctance about lymphedema surgery, stating she knows people who have had surgery and has had numerous complications, as well as healthcare providers that recommend exhausting conservative treatment efforts prior to consideration of surgery. The patient's wound cultures from 02/05/2021 were positive for 1+ Enterococcus faecalis, and rare MRSA. She was sent to the emergency department for IV antibiotic treatment. She received a dose of IV vancomycin 2000mg and was discharged on 10-day courses of doxycycline and Augmentin, which she has completed. Hospital labs were as follows: CBCD: Unremarkable CMP: Unremarkable Lactic acid: Normal INR: Normal The patient was seen by Dr. Desai on 02/16/2021 for [facility]. Aquacel Ag was continued, and the patient was started on Unna boots for compression and treatment of right lower extremity excoriation. Progress of Wound: Patient's right posterior leg ulcer is healed today. Objective Data Objective Data Vital Signs: Vital Signs Temp Pulse Resp BP 97.2 F L 113 H 22 H 163/97 H 08/17/21 14:29 08/13/21 08:23 08/10/21 11:35 08/13/21 08:23 Body Mass Index (BMI) 49.0 Charges/Coding Visit Charges Office Visits / Consults: 43955 OV L3 Est Physical Exam Const alert and no apparent distress General Appearance: cooperative, comfortable and well kempt Nutritional Appearance: morbidly obese HEENT Head and Scalp: normocephalic and atraumatic Neck supple Lymph Lymphatic: lymphedema severe (worse in RLE) Resp normal respiratory effort Cardio Peripheral Pulses: dorsalis pedis pulses present right 2+ Extremity normal capillary refill and no joint enlargement General Extremity: edema right lower extremity trace; Negative for clubbing or cyanosis Skin Rashes: rashes noted distal RLE Narrative: Resolved, Right popliteal fossa Narrative: Intertriginous rash and excoriation resolved Wounds: Negative for wounds noted Wound Narrative: Posterior RLE ulcer is healed today. No surrounding erythema or warmth. Neuro oriented x3, moves all extremities and no focal motor deficits Psych mental status grossly normal, cooperative and affect normal Debridement Note Debridement Note No debridement was completed: No debridement was completed today Post-Debridement Measurements and Additional Note: Post-Debridement Measurements/Treatment - Nurse 1 - General Ulcer Assessment Start: 08/03/21 11:22 Freq: Status: Active Protocol: CHRISTIANNE.DINESH Activity Type Activity Date Activity User E-Sign Co-Sign Detail Recorded Client Recorded Date Recorded By Document 08/03/21 11:23 KR [id number] 08/03/21 11:24 KR Document 08/10/21 11:35 DL [id number] 08/10/21 11:42 DL Document 08/13/21 08:23 AK [id number] 08/13/21 08:29 AK Document 08/17/21 14:29 KR [id number] 08/17/21 14:30 KR 08/03/21 08/10/21 08/13/21 11:23 11:35 08:23 - Today's Visit Information Type of service Nurse-only Nurse-only Follow-up Visit 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 ) Arrival Mode Ambulatory Ambulatory Ambulatory Transfer Assistance None Patient Identification Verified (Name & Yes Yes No ) Patient Requires Transmission-Based No No Precautions Safety Precautions NA Height and Weight Body Mass Index (BMI) 49.0 49.0 49.0 BMI Classification Obese Obese Obese Vital Signs Temperature (97.8 F-99.1 F) 96.5 F L 98.2 F 96.9 F L Temperature Source Temporal Temporal Temporal Pulse Rate (60-100) 99 92 113 H Pulse Location Monitor Monitor Monitor Respiratory Rate (12-18) 22 H Respiratory rate source Observation Blood Pressure (90/60-120/80) 170/98 H 170/93 H 163/97 H Blood Pressure Mean (mm Hg) 122 118 119 Source Monitor Monitor Monitor Position Sitting Blood Pressure Location Right Arm History Since Last Visit- (Skip if this is Patient's initial visit) Have you changed medications since your No No No last visit? Any new allergies or adverse reactions No No No Had a fall/change in ADL's that may No No No increase risk of falls Signs or symptoms of abuse and/or No No No neglect since last visit Have you been in the hospital since your No No No last visit? Has dressing in place as prescribed Yes Yes Yes Has compression in place as prescribed Yes Yes Yes Has offloadiing in place as prescribed N/A N/A N/A Experienced any changes in pain level or No No No management Left Footwear Regular Shoe Regular Shoe Right Footwear Regular Shoe Regular Shoe Pain Scale: 0-10 Numeric Is Patient Pain Free? Yes Yes Yes 08/17/21 14:29 WC - Today's Visit Information Type of service Nurse-only Visit Arrival Mode Ambulatory,Cane Transfer Assistance Patient Identification Verified (Name & Yes ) Patient Requires Transmission-Based No Precautions Safety Precautions Height and Weight Body Mass Index (BMI) 49.0 BMI Classification Obese Vital Signs Temperature (97.8 F-99.1 F) 97.2 F L Temperature Source Temporal Pulse Rate (60-100) Pulse Location Respiratory Rate (12-18) Respiratory rate source Blood Pressure (90/60-120/80) Blood Pressure Mean (mm Hg) Source Position Blood Pressure Location History Since Last Visit- (Skip if this is Patient's initial visit) Have you changed medications since your No last visit? Any new allergies or adverse reactions No Had a fall/change in ADL's that may No increase risk of falls Signs or symptoms of abuse and/or No neglect since last visit Have you been in the hospital since your No last visit? Has dressing in place as prescribed Yes Has compression in place as prescribed Yes Has offloadiing in place as prescribed N/A Experienced any changes in pain level or No management Left Footwear Regular Shoe Right Footwear Regular Shoe Pain Scale: 0-10 Numeric Is Patient Pain Free? Yes - Nurse 1 - General Ulcer Measurement Start: 08/03/21 11:22 Freq: Status: Active Protocol: Activity Type Activity Date Activity User E-Sign Co-Sign Detail Recorded Client Recorded Date Recorded By Document 08/03/21 12:49 KR [id number] 08/03/21 12:49 KR Document 08/10/21 11:35 DL [id number] 08/10/21 11:42 DL Document 08/13/21 08:23 AK [id number] 08/13/21 08:29 AK 08/03/21 08/10/21 08/13/21 12:49 11:35 08:23 #8 RLE Post -Combined with other wound No -Current Size (cm) - Length 1.8 -Current Size (cm) - Width 0.4 -Current Size (cm) - Depth 0.1 -Total Square Cm 0.72 -Photo Taken No No -Epithelialization Large 67-100% -Tunneling No -Undermining/Tunneling No -Circular Undermining No -Exudate Amt Small Small -Exudate Type Serosanguineous Serosanguineous -Wound Margin Distinct, Flat & Intact Outline Attached -Granulation Amt Large (67-100%) Large (67-100%) -Granulation Quality Road Runner Red -Slough/Fibrin Yes -Necrosis Amt Small (1-33%) Small (1-33%) -Necrotic Tissue Type Adherent Slough -Structure Exposed N/A N/A -Texture (Irene-wound Skin Appearance) Localized Edema Assessed, ,Scarring Localized Edema -Moisture (Irene-wound Skin Appearance) No Abnormality Assessed,Dry/ Scaly -Color (Irene-wound Skin Appearance) No Abnormality Assessed -Temperature (Irene-wound Skin No Abnormality No Abnormality Appearance) (Pt Warm) (Pt Warm) -Tenderness on Palpation (Irene-wound No No Skin Appearance) -Ulcer Cleansing Soap and Water Wound Cleanser -Foul Odor after Cleansing No No -Anesthetic Used 4% Lidocaine Solution Wound Center Nurse 1 Lower Limb Edema Present Yes Right Calf (cm) 68 66.0 Right Ankle (cm) 28.5 31.0 WC - Nurse 2 - General Ulcer CM Notes Start: 08/03/21 11:22 Freq: Status: Active Protocol: Activity Type Activity Date Activity User E-Sign Co-Sign Detail Recorded Client Recorded Date Recorded By Document 08/13/21 08:37 [id number] 08/13/21 08:43 Document 08/20/21 09:16 PL Desktop 08/20/21 09:17 PL 08/13/21 08/20/21 08:37 09:16 Wound Center Nurse 2 #8 RLE Post -Time 08:41 -Correct Patient Yes -Correct Side, Site, Position Yes -Correct Procedure Yes -Procedure Performed Yes -Type of Procedure Debridement -Clinical Debridement Subcutaneous -Tissue Removed Subcutaneous -Post Debridement (cm) - Length 2.0 -Post Debridement (cm) - Width 0.5 -Post Debridement (cm) - Depth 0.1 -Total Square (Post) (cm) 1.00 -Area of Debridement (cm) - Length 2.0 -Area of Debridement (cm) - Width 0.5 -Total Square (Area) (cm) 1.00 -Tunneling No -Undermining/Tunneling No -Circular Undermining No -Wound/Ulcer Outcome Not Healed -Ulcer Cleansing Rinsed/ Irrigated with Saline -Foul Odor after Cleansing No -Bioengineered Tissue Yes -Type of Bioengineered Tissue Epifix 18mm Disc -Expiration Date 04/03/26 -Product Lot Number [id number] -Percent Used 100 -Lot number of Saline Used -Bleeding Controlled with Pressure -Treatment Response Procedure Tolerated Well -Offloading No -Debridement - Subq, 1st 20sq cm No -Apply Skin Sub - 1st 25 sq cm - Legs 1 -Epifix 18mm Disc 3 Pain Scale: 0-10 Numeric Is Patient Pain Free? Yes Yes WC - Nurse 3 - General Ulcer D/C NN Start: 08/03/21 11:22 Freq: Status: Active Protocol: Activity Type Activity Date Activity User E-Sign Co-Sign Detail Recorded Client Recorded Date Recorded By Document 08/03/21 11:23 KR [id number] 08/03/21 11:24 KR Document 08/06/21 13:35 MT [id number] 08/06/21 13:47 MT Document 08/10/21 11:35 DL [id number] 08/10/21 11:42 DL Document 08/13/21 08:49 AK [id number] 08/13/21 08:49 AK Document 08/17/21 14:29 KR [id number] 08/17/21 14:30 KR Document 08/20/21 09:04 JF [id number] 08/20/21 09:04 JF 08/03/21 08/06/21 08/10/21 11:23 13:35 11:35 Vital Signs Temperature (97.8 F-99.1 F) 96.5 F L 98.2 F Temperature Source Temporal Temporal Pulse Rate (60-100) 99 92 Pulse Location Monitor Monitor Respiratory Rate (12-18) 22 H Respiratory rate source Observation Blood Pressure (90/60-120/80) 170/98 H 170/93 H Blood Pressure Mean (mm Hg) 122 118 Source Monitor Monitor Position Sitting Blood Pressure Location Right Arm Pain Scale: 0-10 Numeric Is Patient Pain Free? Yes Yes Yes Wound Care Nurse 3 #8 RLE Post -Ulcer Cleansing Soap and Water Soap and Water Rinsed/ Irrigated with Saline -Foul Odor after Cleansing No -Negative Pressure Wound Therapy -Primary Dressing Applied Promogran Froilan Matter -Primary Dressing Covered/Secured with Dry Gauze, Dry Gauze & Dry Gauze & Secured with Roll Gauze, Roll Gauze, Tape Secured with Secured with Tape Tape -Promogran 1 -Promogran Froilan Matter 1 Right -Multi-Layered Wrap Application Unna Boot - Unna Boot - Unna Boot - Right ($) Right ($) Right ($) -Compression Wrap -Other Treatment Response Procedure Tolerated Well WC - Visit Discharge Discharge Condition Stable Stable Stable Ambulatory Status Ambulatory,Cane Ambulatory Ambulatory Transportation Private Auto Private Auto Private Auto Medication Reconcilliation completed & No provided to patient/care provider Clinical Summary of Care Provided Yes Notes: froilan not available promogran used 08/13/21 08/17/21 08/20/21 08:49 14:29 09:04 Vital Signs Temperature (97.8 F-99.1 F) 97.2 F L Temperature Source Temporal Pulse Rate (60-100) Pulse Location Respiratory Rate (12-18) Respiratory rate source Blood Pressure (90/60-120/80) Blood Pressure Mean (mm Hg) Source Position Blood Pressure Location Pain Scale: 0-10 Numeric Is Patient Pain Free? Yes Yes Yes Wound Care Nurse 3 #8 RLE Post -Ulcer Cleansing Rinsed/ Soap and Water Irrigated with Saline -Foul Odor after Cleansing No No -Negative Pressure Wound Therapy N/A N/A -Primary Dressing Applied -Primary Dressing Covered/Secured with -Promogran -Promogran Froilan Matter Right -Multi-Layered Wrap Application Unna Boot - Unna Boot - Right ($) Right ($) -Compression Wrap Unna Boot ($) ( single) -Other hydrogel to healed part of leg Treatment Response WC - Visit Discharge Discharge Condition Stable Stable Stable Ambulatory Status Ambulatory,Cane Ambulatory,Cane Ambulatory Transportation Private Auto Private Auto Private Auto Medication Reconcilliation completed & Yes Yes Yes provided to patient/care provider Clinical Summary of Care Provided Yes Yes Yes Notes: Assessment/Plan Assessment/Plan (1) Ulcer of right lower extremity with fat layer exposed: CODE(S): L97.912 - Non-pressure chronic ulcer of unspecified part of right lower leg with fat layer exposed (2) Venous ulcer of right leg: CODE(S): I83.019 - Varicose veins of right lower extremity with ulcer of unspecified site; L97.919 - Non-pressure chronic ulcer of unspecified part of right lower leg with unspecified severity (3) Nonhealing ulcer of right lower extremity: CODE(S): L97.919 - Non-pressure chronic ulcer of unspecified part of right lower leg with unspecified severity QUALIFIERS: Non-pressure ulcer stage: with fat layer exposed Qualified Code(s): L97.912 - Non-pressure chronic ulcer of unspecified part of right lower leg with fat layer exposed (4) Venous insufficiency: (5) Lymphedema: CODE(S): I89.0 - Lymphedema, not elsewhere classified (6) Morbid obesity: CODE(S): E66.01 - Morbid (severe) obesity due to excess calories (7) Intertrigo: CODE(S): L30.4 - Erythema intertrigo PLAN: The patient's right posterior leg ulcer is healed today. An Unna boot will be applied to the right lower extremity for compression today. The patient has received her new CircAid's, and I will have her bring these to the clinic on Monday for a nurse visit. As long as the CircAid's are the appropriate size, the Unna boot will be discontinued, and the CircAid's will be used and then place. The patient will be discharged from the wound healing center at that time. As preventive measures: Continue to avoid friction/pressure against the right posterior leg. The daily use of compression is recommended. She was instructed to resume the use of her lymphedema pumps. She will be referred back to the lymphedema clinic for ongoing treatment. Avoid prolonged standing and/or dangling of legs. When seated, feet should be elevated at chest level. Frequent ambulation is encouraged. Follow-up: Return Monday for nurse visit as described above. Return to the wound healing center for provider evaluation on an as-needed basis should wounds recur or new wounds develop. Note: [employer] speech recognition tube blower software was used to create portions of this document. Sound-alike and misspelled words, as well as other tube blower errors may be contained in the documentation.
[2021-08-20 11:43] VITALS: BP 146/62; PULSE 62; TEMP 35.7; BMI 49.0
[2021-08-26 08:42] VITALS: BP 118/79; PULSE 109; RESP 18; TEMP 36.3; BMI 49.0
[2021-08-31 08:21] VITALS: BP 158/110; PULSE 120; TEMP 35.9; BMI 49.0
== END 2021-08-31 23:59 | disposition home or self-care (01) ==
LOC: WC 08:00
PROVIDERS: PCP Family Medicine; Visit Provider Nurse Practitioner Family
DX: I83.018 Varicose veins of right lower extremity with ulcer other part of lower leg (principal); L97.812 Non-pressure chronic ulcer of other part of right lower leg with fat layer exposed; I48.91 Unspecified atrial fibrillation; E66.01 Morbid (severe) obesity due to excess calories; Z68.42 Body mass index [BMI] 45.0-49.9, adult; I87.2 Venous insufficiency (chronic) (peripheral); I89.0 Lymphedema, not elsewhere classified; L30.4 Erythema intertrigo; E03.9 Hypothyroidism, unspecified; Z79.01 Long term (current) use of anticoagulants; Z79.899 Other long term (current) drug therapy
CPT/HCPCS: 15271; 29580; 99213; Q4186; G0463

== ENCOUNTER 2021-09-03 08:30 | Outpatient (RCR) | payer MEDICAID, SELFPAY ==
[2021-09-01 00:37] VITALS: BP 158/110; PULSE 120; RESP 18; TEMP 35.9; BMI 49.0
[2021-09-03 08:37] VITALS: BP 143/87; PULSE 67; TEMP 36.3; BMI 49.0
--- NOTE | 2021-09-03 11:25 | PN.PCM_ITS ---
History of Present Illness Date of Service: 09/03/21 Chief Complaint: Ulcers of right lower extremity History of Wound: [facility] for evaluation and treatment of bilateral lower leg ulcers. The patient is [facility] from treatment of prior lower extremity ulcers. She has a PMH significant for chronic lymphedema, venous insufficiency, atrial fibrillation (on Eliquis), morbid obesity, and hypothyroidism. She reported development of her posterior right lower leg ulcer in April 2019. She initially was using Manuka honey to this ulcer, but then started using Vaseline instead. She reported her anterior right lower extremity ulcer developed in August, and she had been applying Vaseline to this daily. Her anterior left lower extremity ulcer developed approximately 1 week prior to her initial January 2020 appt, and she had been applying Vaseline to this daily as well. She notes that approximately 4 to 6 weeks prior, the ulcer on her posterior right lower leg began increasing in soreness. She has lymphedema pumps at home, but had not been using these due to reported pain with use which is related to her ulcers. She does not use compression at home. She reports frequent dangling of her legs while seated at her computer for work. She does not frequently elevate her feet when seated. The patient denied any fever, chills, nausea, vomiting, or diarrhea on initial evaluation. She denied any increasing redness or swelling of the affected area at that time as well. She did note foul-smelling drainage from her right lower extremity. She had not been on any recent antibiotics prior to evaluation. She reported having lab work done approximately 6 weeks prior; these records were requested for review multiple times but never obtained. Lab work was ordered and completed in February 2020 and was significant for the following: CBCD: RBC 3.83 (L), hemoglobin 11.3 (L), hematocrit 34.8 (L), platelets 143 (L) ESR: 93 (H) CMP: Albumin 3.0 (L) CRP: 111 (H) Prealbumin 18.6 (L) She had lower extremity arterial studies completed 05/16/16 which showed relatively normal arterial perfusion to ankle level bilaterally. Triphasic waveforms were noted at ankle level bilaterally. Resting ankle-brachial indices were bilaterally normal. The right digital-brachial index is normal, consistent with normal arterial perfusion at distal, small-vessel level in the right lower extremity. The left digital-brachial index is mildly diminished, suggesting the presence of mild, distal, small-vessel arterial occlusive disease in the left lower extremity. Venous and arterial studies were ordered on 09/11/2020, and the patient was scheduled for an appointment in September for these tests. However the tests were never completed. The patient has continually expressed reluctance regarding wound work-up, and noncompliance with orders. Wound cultures collected on 01/03/2020 were positive for 3+ Aeromonas hydrophilia/caviae, 2+ Citrobacter braakii, 1+ Proteus mirabilis, rare Staphylococus aureus, anaerobic cocci, actinomyces odontolyticus, Bacteroides fragilis; beta-lactamase positive. She completed courses of Levaquin and Augmentin. Weeks later, she developed redness and warmth of a localized lymphedema mass of her right medial thigh; this resolved following a 14-day course of Levaquin and Augmentin. She has continued to have fluctuating redness and warmth of this right medial thigh lymphedema mass. She has completed several courses of antibiotics. Keflex and Levaquin have been of benefit. Doxycycline was not felt to be of significant benefit. A referral to a lymphedema specialist at the [facility] was made, and the importance of scheduling this appointment was discussed with the patient. She has not yet scheduled this appointment. Several conversations have been had with the patient regarding her need for compression and lymphedema management in order for her wounds to heal. She refuses compression. She is noncompliant with elevating her legs. She states she is unable to use her lymphedema pumps at this time due to the size of her legs. Since January 2020, several wound care treatments have been utilized, including Aquacel, Aquacel Ag, Devika. She has completed several applications of advanced skin substitutes (Apligraf, Puraply, and Nushield). She initially completed 6 applications of Puraply, the last of which was placed on 03/13/2020. She was subsequently approved for 10 additional applications of organogenesis products, which were applied between 05/15/2020 and 08/07/2020 (1 Puraply, 5 Apligraf, and 4 Nushield). Progress of Wound: Patient has had worsening of her wound size and appearance in recent weeks. She has had copious amounts of clear drainage from her right lower extremity, particularly from the anterior RLE. She has severe excoriation of the anterior RLE, as well as new areas of ulceration. She reports she has been changing her super sorb dressings approximately 4 times daily, and they have been saturated when changed. She is using Aquacel Ag to her right lower extremity anterior and posterior ulcers. She again states that she has not been using her lymphedema pumps often, but has been trying to use them more. She does not elevate her leg regularly. She does not use compression. She has not rescheduled her appointment with the lymphedema specialist at the [facility]. She expresses reluctance about lymphedema surgery, stating she knows people who have had surgery and has had numerous complications, as well as healthcare providers that recommend exhausting conservative treatment efforts prior to consideration of surgery. The patient's wound cultures from 02/05/2021 were positive for 1+ Enterococcus faecalis, and rare MRSA. She was sent to the emergency department for IV antibiotic treatment. She received a dose of IV vancomycin 2000mg and was discharged on 10-day courses of doxycycline and Augmentin, which she has completed. Hospital labs were as follows: CBCD: Unremarkable CMP: Unremarkable Lactic acid: Normal INR: Normal The patient was seen by Dr. Desai on 02/16/2021 for [facility]. Aquacel Ag was continued, and the patient was started on Unna boots for compression and treatment of right lower extremity excoriation. Progress of Wound: Patient's right posterior leg ulcer remains healed. At her nurse visit to check the size of her CircAid's, she was noted to have weeping and excoriation of the left anterior lower leg. Her left leg was wrapped in an Unna boot, and this has been of some benefit in decreasing her swelling and drainage. She does not have any drainage noted today. She continues to have excoriation of the left anterior lower leg. She states that her CircAid's will not stay up on her legs, and they frequently fall down to her ankles. She has not yet made an appointment with the lymphedema clinic as instructed. Objective Data Objective Data Vital Signs: Vital Signs Temp Pulse Resp BP 97.4 F L 67 18 143/87 H 09/03/21 08:37 09/03/21 08:37 09/01/21 00:37 09/03/21 08:37 Body Mass Index (BMI) 49.0 Charges/Coding Visit Charges Office Visits / Consults: 34487 OV L3 Est Physical Exam Const alert and no apparent distress General Appearance: cooperative, comfortable and well kempt Nutritional Appearance: morbidly obese HEENT Head and Scalp: normocephalic and atraumatic Neck supple Lymph Lymphatic: lymphedema severe (worse in RLE) Resp normal respiratory effort Cardio Peripheral Pulses: dorsalis pedis pulses present left 2+ Extremity normal capillary refill and no joint enlargement General Extremity: edema bilateral lower extremity Details: moderate; Negative for clubbing or cyanosis Skin Rashes: rashes noted distal LLE Narrative: Bright red erythematous excoriation of the anterior left lower leg. No warmth, drainage, or tenderness to palpation. excoriation Wounds: Negative for wounds noted Neuro oriented x3, moves all extremities and no focal motor deficits Psych mental status grossly normal Debridement Note Debridement Note No debridement was completed: No debridement was completed today Post-Debridement Measurements and Additional Note: Post-Debridement Measurements/Treatment WC - Nurse 1 - General Ulcer Assessment Start: 09/03/21 08:37 Freq: Status: Active Protocol: SAL Activity Type Activity Date Activity User E-Sign Co-Sign Detail Recorded Client Recorded Date Recorded By Document 09/03/21 08:37 RAMON [id number] 09/03/21 08:38 RAMON 09/03/21 08:37 - Today's Visit Information Type of service 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 Any new allergies or adverse reactions No Had a fall/change in ADL's that may No increase risk of falls Signs or symptoms of abuse and/or No neglect since last visit Have you been in the hospital since your No last visit? Has dressing in place as prescribed Yes Has compression in place as prescribed Yes Has offloadiing in place as prescribed N/A Experienced any changes in pain level or No management Left Footwear Regular Shoe Right Footwear Regular Shoe Pain Scale: 0-10 Numeric Is Patient Pain Free? Yes WC - Nurse 1 - General Ulcer Measurement Start: 09/03/21 08:37 Freq: Status: Active Protocol: Activity Type Activity Date Activity User E-Sign Co-Sign Detail Recorded Client Recorded Date Recorded By Document 09/03/21 08:37 [id number] 09/03/21 08:38 RAMON 09/03/21 08:37 W[facility] Center Nurse 1 Left Calf (cm) 66 Left Ankle (cm) 31 Assessment/Plan Assessment/Plan (1) Excoriation of left lower leg: CODE(S): S80.812A - Abrasion, left lower leg, initial encounter QUALIFIERS: Encounter type: subsequent encounter Qualified Code(s): S80.812D - Abrasion, left lower leg, subsequent encounter (2) Lymphedema: CODE(S): I89.0 - Lymphedema, not elsewhere classified (3) Venous insufficiency: (4) Morbid obesity: CODE(S): E66.01 - Morbid (severe) obesity due to excess calories (5) Intertrigo: CODE(S): L30.4 - Erythema intertrigo PLAN: The patient has no remaining open wounds. The patient has excoriation of her left anterior lower leg, suspected to be due to moisture from patient's weeping edema and lymphedema. Clotrimazole/betamethasone cream prescribed, to be applied to the left lower leg for the next 2 weeks. She states that her CircAid's are frequently falling down, so she has not been using them for compression. She is advised to call and schedule with the lymphedema clinic as previously instructed; at this time wraps may be the only option for compression due to her leg shape/size. If the excoriation of her left anterior lower leg does not resolve in the next 2 weeks with the use of clotrimazole/betamethasone cream, she is advised to schedule with dermatology for evaluation. As preventive measures: The daily use of compression is recommended. She was instructed to use her lymphedema pumps. She will be referred back to the lymphedema clinic for ongoing treatment. Avoid prolonged standing and/or dangling of legs. When seated, feet should be elevated at chest level. Frequent, short periods of ambulation are encouraged. Follow-up: Return to the wound healing center for provider evaluation on an as- needed basis should wounds recur or new wounds develop. Note: [employer] speech recognition passenger locomotive engineer software was used to create portions of this document. Sound-alike and misspelled words, as well as other passenger locomotive engineer errors may be contained in the documentation.
== END 2021-09-03 12:45 | disposition home or self-care (01) ==
LOC: WC 08:30
PROVIDERS: PCP Family Medicine; Visit Provider Nurse Practitioner Family
DX: S80.812D Abrasion, left lower leg, subsequent encounter (principal); X58.XXXD Exposure to other specified factors, subsequent encounter; I89.0 Lymphedema, not elsewhere classified; R60.0 Localized edema; I48.91 Unspecified atrial fibrillation; E03.9 Hypothyroidism, unspecified; I87.2 Venous insufficiency (chronic) (peripheral); E66.01 Morbid (severe) obesity due to excess calories; Z68.42 Body mass index [BMI] 45.0-49.9, adult; Z79.01 Long term (current) use of anticoagulants; Z79.890 Hormone replacement therapy; Z79.899 Other long term (current) drug therapy
CPT/HCPCS: 99213; G0463